=== PATIENT | female | born 1965 | race Caucasian/White ===

== ENCOUNTER 2024-03-13 07:08 | Outpatient (OUT) | payer MEDICARE, SELFPAY ==
--- NOTE | 2024-03-13 | PCN_ITS ---
CARDIAC STRESS TEST Requesting Physician: Karlie Eller CNP Procedure Date: 03/13/2024 TREADMILL EKG STRESS TEST INDICATIONS FOR THE TEST: Chest pain, palpitations and shortness of breath. The procedure was explained to the patient including risks, benefits and she was agreeable to proceed. Resting EKG showed normal sinus rhythm, heart rate 63 beats per minute, normal EKG. Patient?s resting heart rate 63 beats per minute, resting blood pressure 142/80 mm/Hg. The patient was exercised according to standard [place] protocol, and she was able to reach stage 3, exercising for 8 minutes and 41 seconds, achieving max heart of 136 beats per minute, which represents 84% of age predicted maximum heart rate and peak blood pressure of 170/80 mm/Hg. Procedure was terminated secondary to fatigue, shortness of breath and feeling dizzy, which resolved within 2 minutes of recovery. The patient was monitored for about 10 minutes into recovery phase. The patient did not have any chest, neck, jaw or arm discomfort. EKG during exercise and at peak exercise did not show significant T or ST changes. During recovery, mild, less than [address] depression noted in the inferior leads and resolved totally 4 minutes into recovery. CONCLUSIONS: 1. Maximal stress test achieving 84% of age predicted maximal heart rate. 2. Good exercise tolerance with appropriate heart rate and blood pressure to exercise. 3. This stress test is negative for exercise induced ischemic symptoms, EKG changes or arrhythmias. 4. Castillo score is 8, consistent with low risk. MTDD
--- NOTE | 2024-03-13 09:30 | PC.NURSE ---
Nursing Note Cardiac Stress Test Reviewed: Medication, allergies and patient history reviewed. Stress Test: [ x] Patient tolerated stress test well. [ ] Patient unable to tolerate walking on treadmill. Switched to Lexiscan stress test. [ x] No chest pain noted per patient [ ] Chest pain that resolved prior to leaving stress lab. [ ] No dyspnea noted. [x ] Dyspnea that resolved prior to leaving stress lab. [ x] Patient left stress lab asymptomatic and hemodynamically stable. [ ] Patient taken to the Emergency Room due to non-resolving symptoms following stress test. [ x] Patient achieved target heart rate. [ ] Patient unable to achieve target heart rate. [ ] Aminophylline administered as reversal agent to Lexiscan (Regadenoson). [ ] Nitro administered. Nursing Comments:Pt had regular treadmill stress test done. Pt achieved target HR. Pt has hx of PLAZA and was dizzy and felt weak immediately following the walking portion. Pt was able to rest on bed and within 4-5 minutes of rest felt back to pre testing state. Pt stated at end of test that she felt back to normal and was no longer dizzy or SOB and pt had no chest pain throughout testing.
== END 2024-03-13 07:09 | disposition home or self-care (01) ==
LOC: CARD 07:11
PROVIDERS: PCP Family Medicine
DX: R07.89 Other chest pain (principal); R94.31 Abnormal electrocardiogram [ECG] [EKG]; R00.2 Palpitations
CPT/HCPCS: 93017

== ENCOUNTER 2024-04-13 13:49 | Outpatient (OUT) | payer MEDICARE, SELFPAY ==
--- NOTE | 2024-04-13 14:00 | CA_ITS ---
Patient Name: IRIS THOMASON MR#: [id number] : 1965 Exam Date: 04/13/2024 Ordering Doctor: Non-Staff Physician ECHOCARDIOGRAM REPORT PROCEDURE: CA ECHO DOPPLER COMPLETE INDICATIONS: chest pain, palpitations, hypertension COMPARISON: None. DESCRIPTION: COMPLETE ECHOCARDIOGRAM Real-time transthoracic echocardiography with 2D, M-mode, spectral and color flow Doppler performed. QUALITY: Technical quality was good. LEFT VENTRICLE: Normal chamber size. Borderline left ventricular hypertrophy. LV EF: Normal left ventricular ejection fraction, 60%. No regional wall motion abnormalities. DIASTOLIC: Indeterminate diastolic dysfunction. ATRIAL SEPTUM: Visually appears intact. LEFT ATRIUM: Normal chamber size. RIGHT ATRIUM: Normal chamber size. RIGHT VENTRICLE: Normal chamber size. Normal right ventricular systolic function. TRICUSPID VALVE: Normal mobility and thickness. No stenosis with trivial regurgitation. Doppler studies reveal mildly (35-45) elevated right sided pressures.RVSP 45 mmHg MITRAL VALVE: Normal mobility and thickness. No evidence of mitral valve stenosis. There is no mitral annular calcification. Trivial mitral regurgitation. AORTIC VALVE: Normal trileaflet appearance. No visible sclerosis. Normal leaflet mobility. No evidence of aortic valve stenosis. No aortic regurgitation. AORTIC ROOT: Normal diameter and appearance. Ascending aorta is normal in size. PULMONIC VALVE: Normal thickness and mobility. No stenosis. No regurgitation. PERICARDIUM: No evidence of pericardial effusion. IVC: Normal size. Collapes with inspirations. PLEURA: CONCLUSION: Normal left ventricle chamber size. Borderline left ventricular hypertrophy. Normal left ventricular ejection fraction, 60%. No regional wall motion abnormalities. Indeterminate diastolic dysfunction. Mildly elevated right sided pressures. RVSP 45 mmHg No significant valvular abnormalities Adult Echocardiography Procedure Report Left Ventricle LVEDD (3.7 - 5.6 cm): 4.38 cm LVESD (2.2 - 4.0 cm): 3.22 cm LVIVS thickness (0.6 - 1.2 cm): 1.12 cm LVPW thickness (0.5 - 1.0 cm): 0.98 cm e': 0.08 m/s E - e': 13.01 LVOT Max Gradient: 2.30 mm[Hg] LVOT Area (cm2): 0.76 m/s Peak Velocity (LVOT): 0.76 m/s Mean Velocity (LVOT): 0.47 m/s LVOT Diameter 1.85 cm Left Ventricular Ejection Fraction: Left Atrium LA Volume Index (2D A2C): 29.93 ml/m2 Left Atrium Systolic Dimension: 3.49 cm Mitral Valve MV E to A Ratio: 1.27 MV Max Gradient: MV Mean Gradient: Mitral Valve A-Wave Peak Velocity: 0.79 m/s Mitral Valve E-Wave Peak Velocity: 1.00 m/s Cardiovascular Orifice Area: Right Ventricle RV Internal Diastolic Dimension: Aorta AO Root Diam: 2.64 cm Ascending Ao Diam: 2.51 cm Aortic Valve AoV Area (Peak Alfredo): 1.38 cm2, 1.38 cm2 AoV Area (VTI): 1.46 cm2, 1.46 cm2 Deceleration Pratt: Pressure Half-Time: Peak Velocity(Antegrade Flow): 1.48 m/s Peak Gradient(Antegrade Flow): 8.71 mm[Hg] Mean Velocity(Antegrade Flow): 0.93 m/s Mean Gradient(Antegrade Flow): 4.05 mm[Hg] Velocity Time Integral: 32.61 cm Tricuspid Valve Peak Velocity (Regurgitant Flow): 3.24 m/s, 3.07 m/s Peak Velocity: Pulmonic Valve Mean Gradient: 1.99 mm[Hg] Mean Velocity: 0.66 m/s Peak Velocity: 0.98 m/s, 0.94 m/s Peak Gradient: 3.86 mm[Hg], 3.51 mm[Hg] Right Atrium Right Atrium Systolic Pressure: 55.03 ml, 55.03 ml Dictated by: Ralf Shipman MD on 04/13/2024 at 18:01 Approved by: Ralf Shipman MD on 04/13/2024 at 18:13
== END 2024-04-13 13:50 | disposition home or self-care (01) ==
LOC: CARD 13:50
PROVIDERS: PCP Family Medicine
DX: R07.89 Other chest pain (principal); R00.2 Palpitations
CPT/HCPCS: 93306

== ENCOUNTER 2024-05-15 15:30 | Outpatient (OUT) | payer MEDICARE, SELFPAY | END 2024-05-15 15:31 | disposition home or self-care (01) | LOC: SLEEP 05-16 13:36 | PROVIDERS: PCP Physician Assistant Medical; Visit Provider Physician Assistant Medical | DX: G47.33 Obstructive sleep apnea (adult) (pediatric) (principal) | CPT/HCPCS: 95806 ==

== ENCOUNTER 2024-05-30 12:56 | Outpatient (OUT) | payer MEDICARE, SELFPAY ==
[2024-05-30 13:06] LABS: Hemoglobin 14.8 g/dL (12.0-16.0)
--- NOTE | 2024-05-30 13:45 | RT_ITS ---
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
== END 2024-05-30 12:57 | disposition home or self-care (01) ==
LOC: CARD 12:56
PROVIDERS: PCP Physician Assistant Medical; Visit Provider Physician Assistant Medical
DX: R06.02 Shortness of breath (principal); G47.30 Sleep apnea, unspecified; R06.83 Snoring; I27.20 Pulmonary hypertension, unspecified
CPT/HCPCS: 36415; 85018; 94729

== ENCOUNTER 2024-06-29 12:52 | Outpatient (OUT) | payer MEDICARE, SELFPAY ==
--- NOTE | 2024-06-29 13:00 | RT_ITS ---
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 Findings were considered accurate and reproducible, with exception of DLCO which did not meet ATS standards. No bronchodilator was administered due to normal spirometric values. Spirometry: -FEV1/FVC: Normal @ 80% -FEV1: Normal @ 90% -FVC: Normal @ 87% Lung volumes by plethysmography: -RV: Normal @ 99% -TLC: Normal @ 95% Diffusion capacity: -DLCO: Mild reduction @ 67% when corrected for Hb 14.8g/dL Flow-volume loop: -Normal shape Impressions: -Normal spirometry and lung volumes, with an isolated mild diffusion impairment. This pattern can be seen in, but not restricted to, cardiopulmonary vascular disorders, early interstitial lung disease, and early emphysema. A previous DLCO was done 05/30/2024 which was not grossly changed from 70%. Clinical correlation required. Electronically Signed On 07-03-2024 11:44:37 EST by Mickey Torres
== END 2024-06-29 12:53 | disposition home or self-care (01) ==
LOC: CARD 12:52
PROVIDERS: PCP Physician Assistant Medical; Visit Provider Physician Assistant Medical
DX: R06.09 Other forms of dyspnea (principal)
CPT/HCPCS: 94010; 94726; 94729

== ENCOUNTER 2024-07-06 11:31 | Emergency (ER) | payer MEDICARE, SELFPAY ==
[2024-07-06 11:38] VITALS: BP 157/104; PULSE 80; O2SAT 95; BMI 31.6
--- OUTSIDE RECORDS SUMMARY | 2024-07-06 11:50 | XMS_ITS | CCD ---
Author Organization [facility] Care Team Providers Care Barber Instructor Name Role Phone GAUTAM DILL Unavailable GAUTAM DILL Unavailable Unavailable Gautam Dill Unavailable Aniyah, DO Florez Primary Care Provider [phone] DO Gautam Dill Attending Provider [phone] Aniyah, DO Florez Primary Care Provider [phone] Aniyah, DO Florez Attending Provider [phone] Self, Referral Attending Provider Unavailable Aniyah, DO Florez Primary Care Provider [phone] Aniyah, DO Florez Attending Provider BELÉN, DR YUNIEL Ying Admitting Unavailable BEÉLN, DR YUNIEL Ying Attending Unavailable BELÉN, DR YUNIEL Ying Consulting Unavailable FIORELLA MA Admitting Unavailable FIORELLA MA Attending Unavailable ANIYAH, DR FLOREZ Primary Care Unavailable [facility] DR FAROOQ Field Consulting Unavailable FIORELLA MA Consulting Unavailable ANIYAH, DR FLOREZ Admitting Unavailable ANIYAH, DR FLOREZ Attending Unavailable ANIYAH, DR FLOREZ Primary Care Unavailable Aniyah, DO Florez Primary Care Provider DO Gautam Dill Attending Provider [phone] Gautam Dill DO Primary Care Provider Gautam Dill DO Primary Care Provider DO Gautam Dill Primary Care Provider [phone] DO Gautam Dill Attending Provider Gautam Dill DO Primary Care Provider Thao MD, Penola P Unavailable [phone] Kuns, DO Gautam Primary Care Provider Kuns, DO Gautam Attending Provider Kuns DO, Gautam P Primary Care Provider [phone] Kuns, DO Gautam Referring Provider [phone] Kuns, DO Gautam Primary Care Provider [phone] Kuns, DO Gautam Attending Provider Ly, DO Tina L Attending Provider Gautam Dlil MD Primary Care Provider Kuncee, Gautam Admitting Unavailable Kuns, Gautam Attending Unavailable Kuns, Gautam Admitting Unavailable Kuns, Gautam Primary Care Unavailable Kuns, Gautam Attending Unavailable Kuns, Gautam Admitting Unavailable Kuns, Gautam Primary Care Unavailable Kuns, Gautam Attending Unavailable Kuns, Gautam Referring Unavailable Kuns, Gautam Admitting Unavailable Kuns, Gautam Primary Care Unavailable Kuns, Gautam Attending Unavailable Kuns, Gautam Primary Care Unavailable Ly, Tina L Admitting Unavailable Ly, Tina L Attending Unavailable RINKEIKO RIVER Attending Unavailable THAO, PENOLA P Referring Unavailable THAO, PENOLA P Attending Unavailable THAO, PENOLA P Referring Unavailable VISCI, DELORES A Attending Unavailable VISCI, DELORES A Attending Unavailable VISCI, DELORES A Referring Unavailable VISCI, DELORES A Attending Unavailable RINALETA, KEIKO E Attending Unavailable VISCI, DELORES A Referring Unavailable RINKES, KEIKO E Referring Unavailable YEARTY, IRIS Attending Unavailable KARABIN, PIETRO Referring Unavailable KARABIN, PIETRO Referring Unavailable KARABIAna, PIETRO Attending Unavailable KUNS, GAUTAM P Primary Care Unavailable DEL MATTHEW SPANGLER P Referring Unavai gurwinderle LAINEY LINDSEY Attending Unavailable KUNS, GAUTAM P Primary Care Unavailable HEATHER BLANTON Attending Unavailable Guido DURHAM, Ziomar Unavailable Allergies Allergy Classification Reported Allergen(s) Allergy Type Date of Onset Reaction(s) Facility Adhesive Tape (1 source) Adhesive Tape Substance Allergy 014 Other: See Comments [facility] Cephalosporins (antibiotic) (1 source) Cephalosporins (Antibiotic) Drug Allergy Unknown [facility] Contrast Media (1 source) Contrast media Substance Allergy Other: See Comments [facility] Macrolides (antibiotic) (1 source) Azithromycin Drug Allergy GI Upset [facility] Nitroimidazoles (antibiotic) (1 source) metroNIDAZOLE Drug Allergy 015 Diarrhea [facility] Work Phone: Opioid Agonists (1 source) Morphine Drug Allergy Other: See Comments [facility] Penicillins (antibiotic) (1 source) Penicillins Drug Allergy GI Upset [facility] (16 sources) Amoxicillin / Clavulanate Drug Allergy diarrhea [facility] Other (20 sources) Budesonide / formoterol Drug Allergy 024 Other: See Comments [facility] (20 sources) celecoxib Drug Allergy Unknown [facility] Other (20 sources) Cephalexin Drug Allergy Unknown [facility] Other (20 sources) cloNIDine; Translations: [CLONIDINE] Drug Allergy 023 Other: See Comments [facility] (20 sources) Contrast media Propensity to adverse reactions Unknown [facility] Other (20 sources) levoFLOXacin Drug Allergy severe diarrhea [facility] Other (20 sources) LORazepam; Translations: [LORAZEPAM] Drug Allergy 023 Unknown [facility] (20 sources) methylPREDNISolone Drug Allergy Unknown [facility] Other (20 sources) metroNIDAZOLE; Translations: [METRONIDAZOLE] Drug Allergy 015 Diarrhea [facility] (20 sources) Morphine; Translations: [MORPHINE] Drug Allergy Other: See Comments [facility] (20 sources) NITROFURANTOIN, MACROCRYSTALS / Nitrofurantoin, Monohydrate Drug Allergy bradycardia [facility] Other (20 sources) oxybutynin Drug Allergy Unknown [facility] Other (20 sources) rofecoxib Drug Allergy Unknown [facility] Other (20 sources) Sulfamethoxazole / Trimethoprim Drug Allergy 023 Itching [facility] Other (20 sources) Valproate Drug Allergy Unknown [facility] Other (20 sources) surgical tape/electrode pads Propensity to adverse reactions Unknown [facility] Other (14 sources) Sulfonamides (Antibiotic); Translations: [Sulfa (Sulfonamide Antibiotics)] Allergy to substance 017 Itching, Other: See Comments [facility] (20 sources) Iodinated [employer]; Translations: [Iodinated [facility] [facility]] Allergy to substance 014 Unknown Reaction [facility] (6 sources) Amoxicillin / Clavulanate Drug Allergy diarrhea [facility] Other (7 sources) Cephalexin Drug Allergy 023 unknown [facility] Repository (1 source) Penicillin Drug Allergy [facility] Repository (13 sources) Adhesive Tape; Translations: [ADHESIVE TAPE (ROSINS)] Allergy to substance 014 Other: See Comments [facility] (20 sources) Azithromycin; Translations: [AZITHROMYCIN] Drug Allergy 015 GI Upset [facility] (14 sources) Cephalosporins (Antibiotic); Translations: [CEPHALOSPORINS] Drug Allergy 004 Unknown [facility] (13 sources) Contrast media; Translations: [CONTRAST DYE] Drug Allergy 014 Other: See Comments [facility] (13 sources) metroNIDAZOLE; Translations: [METRONIDAZOLE HCL] Drug Allergy 015 Diarrhea [facility] Work Phone: (13 sources) Penicillins; Translations: [PENICILLINS] Drug Intolerance 015 GI Upset [facility] (7 sources) Adhesive Tape; Translations: [adhesive tape] Allergy to substance 023 unknown [facility] (7 sources) Amoxicillin; Translations: [amoxicillin] Drug Allergy 023 diarrhea [facility] (8 sources) Budesonide; Translations: [budesonide] Drug Allergy blood pressure [facility] (19 sources) celecoxib; Translations: [celecoxib] Drug Allergy Other: See Comments [facility] (19 sources) Clavulanate; Translations: [clavulanic acid] Drug Allergy Diarrhea [facility] (18 sources) formoterol; Translations: [formoterol] Drug Allergy blood pressure [facility] (19 sources) levoFLOXacin; Translations: [levofloxacin] Drug Allergy Diarrhea, Other: See Comments [facility] (18 sources) methylPREDNISolone; Translations: [methylprednisolone] Drug Allergy GI Upset, Other: See Comments [facility] (9 sources) Nitrofurantoin; Translations: [nitrofurantoin] Drug Allergy Other: See [facility] (19 sources) oxybutynin; Translations: [oxybutynin] Drug Allergy Other: See Comments [facility] (17 sources) rofecoxib; Translations: [rofecoxib] Drug Allergy unknown [facility] (17 sources) Sulfamethoxazole; Translations: [sulfamethoxazole] Drug Allergy itching [facility] (19 sources) Trimethoprim; Translations: [trimethoprim] Drug Allergy Itching [facility] (7 sources) Valproate; Translations: [divalproex sodium] Drug Allergy unknown [facility] (10 sources) Cephalexin Drug Allergy [facility] (10 sources) Cephalosporins (Antibiotic) Drug Allergy [facility] (10 sources) Lorazepam Allergy to substance [facility] (10 sources) Penicillins Drug Intolerance [facility] (10 sources) Valproate Drug Allergy [facility] (11 sources) Amoxicillin-Pot Clavulanate; Translations: [AMOXICILLIN-POT CLAVULANATE] Drug Allergy Diarrhea [facility] (10 sources) Budesonide-Formotero l Fumarate Drug Allergy [facility] (10 sources) Wound Dressing Adhesive Drug Allergy [facility] (1 source) Cephalexin Drug Allergy [facility] Repository (1 source) cloNIDine Drug Allergy [facility] Repository (1 source) LORazepam Drug Allergy [facility] Repository (1 source) metroNIDAZOLE Drug Allergy [facility] Repository (1 source) Morphine Drug Allergy [facility] Repository (1 source) Budesonide / formoterol; Translations: [BUDESONIDE-FORMOTER OL] Drug Allergy [facility] Repository (1 source) Sulfamethoxazole / Trimethoprim; Translations: [SULFAMETHOXAZOLE-TR IMETHOPRIM] Drug Allergy [facility] Repository (1 source) DIVALPROEX; Translations: [DIVALPROEX] Propensity to adverse reactions to drug (disorder) [facility] Repository (1 source) Latex Drug Allergy Other: See Comments [facility] Medications Current Medications Medication Drug Class(es) Dates Sig (Normalized) Sig (Original) Acetaminophen (1 source) acetaminophen (TYLENOL 8 HOUR ORAL) Take by mouth as needed. Active ALPRAZolam 0.25 mg oral tablet (12 sources) Benzodiazepine Start: 01-15-2019 take 1 tablet by mouth twice daily as needed Xanax 0.25 MG 1 tablet Orally Twice a day prn for 12 days Jan, Active azithromycin 500 mg oral tablet (20 sources) Macrolide Antimicrobial Start: 04-10-2024 take 1 tablet by mouth once daily azithromycin (ZITHROMAX) 500 mg tablet Take 500 mg by mouth once daily. 04/10/2024 Active Start: 10-19-2023 End: 02-08-2024 take 1 tablet by mouth every hour Azithromycin (Zithromax) 500 mg tablet Discontinued 500 MG PO .COMPLEX 1 October 19, 2023 12:00am February 08, 2024 11:25am 500 mg orally take 1 tablet one hour prior to dental procedure; Start: 08-08-2023 End: 09-27-2023 take 1 tablet by mouth once daily Azithromycin (Zithromax) 500 mg tablet Discontinued 500 MG PO Daily August 08, 2023 12:00am September 27, 2023 2:29pm one tablet one hour prior to procedure Start: 07-20-2023 End: 10-19-2023 Azithromycin (Zithromax Z-Pa k) 250 mg tablet Discontinued 0 PO .COMPLEX 6 September 26, 2023 2:47pm October 19, 2023 8:38am For 250 mg dose pack: take 500 mg today (day 1), then 250 mg for 4 days (days 2-5) PO Start: 08-04-2022 Zithromax Z-Pa k 250 MG as directed Orally as directed Jul, Active Start: 05-18-2022 Zithromax Z-Pa k 250 MG as directed Orally as directed May, Active Start: 03-02-2022 Zithromax 500 MG 1 tablet Orally one hour before procedure Feb, Active calcium carbonate 1500 mg / cholecalciferol 800 unt oral tablet (10 sources) Vitamin D Calcium Carb-Cho lecalciferol (Calcium 600/Vitamin D3) 600-20 MG-MCG tablet Take by mouth Active cholecalciferol 0.05 mg oral capsule (9 sources) Vitamin D Start: 09-27-19 take 2 capsules by mouth once daily Cholecalciferol, Vitamin D3, 50 mcg (2,000 unit) cap Take 2 capsules by mouth once daily. 09/27/2023 Active take 2 capsules by m outh every twenty-four hours Vitamin D 50 MCG (2000 UT) 2 capsule Orally Once a day Active Compression stockings, 20-30 mmHg, calf 20-30mmHg (20 sources) Start: 01-15-2019 Start: 01-15-[address] ockings, 20-30mmHg, calf 20-30mmHg externally daily as directed for 3 months Jan, Active doxycycline hyclate 50 mg oral capsule (16 sources) Tetracycline-class Drug Start: 08-25-2021 take 1 capsule by mouth every twelve hours Doxycycline Hyclate 50 MG 1 capsules Orally Twice a day for 5 days Aug, Active Start: 05-11-2021 take 1 tablet by shabana every twelve hours Doxycycline Hyclate 50 MG 1 tablet Orally Twice a day for 10 day(s) May, Active esomeprazole 40 mg delayed release oral capsule (20 sources) Proton Pump Inhibitor Start: 02-08-2024 take 1 capsule by mouth once daily Esomeprazole Magnesium (Nexium) 40 mg capsule,delayed release(DR/EC) Active 40 MG PO Daily February 08, 2024 12:00am Start: 04-15-2017 End: 10-19-2023 take 1 capsule by mouth once daily Esomeprazole Magnesium (Nexium) 20 mg Capsule,Delayed Release(Dr/Ec) Discontinued 20 MG PO Daily April 15, 2017 1:00am October 19, 2023 8:38am End: 08-08-2023 esomeprazole magnesium (NEXI UM ORAL) Take 1 tablet by mouth as needed. 0 08/08/2023 Discontinued esomeprazole mag nesium (NEXIUM ORAL) Take 1 tablet by mouth as needed. 0 Active Comment on above: Take 1 tablet by [facility] as needed. gabapentin 100 mg oral capsule (20 sources) Anti-epileptic Agent Start: 03-13-2018 take 1 capsule by mouth every twelve hours Gabapentin 100 mg 1 tablet Orally BID for 90 days Mar, Active Start: 12-24-2015 take 1 capsule by [facility] once daily gabapentin (NEURONTIN) 100 mg capsule Take 1 capsule by mouth once daily. 12/24/2015 Active Comment on above: Take 1 capsule by [facility] once daily. Iron (2 sources) take 1 tablet by mouth once rafat y Iron 325 (65 Fe) MG 1 tablet Orally Once a day Active Magnesium (2 sources) magnesium 200 MG tablet Take by mouth Active Magnesium glycinate (1 source) take 240 mg by mouth once daily MAGNESIUM GLYCINATE ORAL Take 240 mg by mouth once daily. High absorption Active Multiple Vitamins-Minerals (multivitamin with minerals) tablet (2 sources) take 1 tablet by mouth once daily Multiple Vitamins-Minerals (multivitamin with minerals) tablet Take 1 tablet by mouth Daily Active mv-min/iron/folic/calcium/ vitK (WOMEN'S MULTIVITAMIN ORAL) (1 source) take 1 tablet by mouth once daily mv-min/iron/folic/calcium /vitK (WOMEN'S MULTIVITAMIN ORAL) Take 1 tablet by mouth once daily. Active nebivolol 5 mg oral tablet (20 sources) Start: 04-15-2017 take 5 mg by mouth once daily Nebivolol Active 5 MG PO Daily April 15, 2017 1:00am take 2.5 mg by mouth once daily nebivolol (BYSTOLIC) 5 mg tablet Indications: Thickened endometrium , Heavy menses Take 2.5 mg by mouth once daily. Active Comment on above: Take 5 mg by mouth o nce daily. predniSONE 10 mg oral tablet (12 sources) Start: 04-22-2021 take 1 tablet by mouth every twenty-four hours predniSONE 10 MG 1 tablet Orally Once a day for 5 day(s) Apr, Active Vitamin D 50 MCG (1999) (11 sources) take 2 capsules by mouth once daily Vitamin D 50 MCG (1999) 2 capsule Orally Once a day Active Completed/Discontinued Medications Medication Drug Class(es) Dates Sig (Normalized) Sig (Original) chlordiazePOXIDE hydrochloride 5 mg / clidinium bromide 2.5 mg oral capsule (5 sources) Anticholinergic, Benzodiazepine Start: 10-19-2023 End: 02-08-2024 Chlordiazepoxide- Clidinium (Librax (With Clidinium)) 5-2.5 mg capsule Discontinued 1 CAP PO Twice daily 30 October 19, 2023 12:00am February 08, 2024 11:25am famotidine 20 mg oral tablet (5 sources) Histamine-2 Receptor Antagonist Start: 10-19-2023 End: 02-08-2024 take 1 tablet by mouth once daily before mealtime Famotidine (Pepcid Ac) 20 mg tablet Discontinued 20 MG PO Daily 60 October 19, 2023 12:00am February 08, 2024 11:26am OTC ferrous sulfate 325 mg oral tablet (20 sources) Start: 04-18-2017 End: 10-19-2023 take 1 tablet by mouth once daily Ferrous Sulfate (Iron) 325 mg (65 mg iron) Tablet Discontinued 325 MG PO Daily April 18, 2017 1:00am October 19, 2023 8:39am Start: 12-24-2015 End: 08-08-2023 take 1 tablet by mouth once daily ferrous sulfate 325 mg (65 mg iron) tablet Take 1 tablet by mouth once daily. 0 12/24/2015 08/08/2023 Discontinued Comment on above: Take 1 tablet by shabana once daily. ibuprofen 800 mg oral tablet (20 sources) Nonsteroidal Anti-inflammatory Drug Start: End: 4 take 1 tablet by mouth three times daily at mealtime as needed Ibuprofen Discontinued 800 MG PO Three times daily September 27, 2023 12:00am February 08, 2024 11:26am [employer] tablet with food or milk as needed Orally Three times a day; Note: Source Status: Provider: Aniyah Dennis Start: 04-25-2018 take 1 tablet by shabana th every six hours as needed ibuprofen (MOTRIN) 600 mg tablet Take 1 tablet by mouth every 6 hours as needed for Pain. Take with food. 50 tablet 04/25/2018 Active take 1 tablet by shabana th three times daily at mealtime as needed Ibuprofen 800 MG 1 tablet with food or milk as needed Orally Three times a day for 90 day(s) prn Active Comment on above: Take 1 tablet by shabana th every 6 hours as needed for Pain. Take with food. loperamide hydrochloride 2 mg oral capsule (15 sources) Opioid Agonist Start: 10-19-2023 End: 02-08-2024 take 2 mg by mouth every six hours Loperamide Discontinued 2 MG PO Every 6 hours October 19, 2023 12:00am February 08, 2024 11:25am loperamide (Imod ium A-D) 2 MG tablet Take 2-4 mg by mouth 4 (four) times a day as needed for diarrhea Active mupirocin 0.02 mg/mg topical ointment (5 sources) RNA Synthetase Inhibitor Antibacterial Start: 10-19-2023 End: 02-08-2024 Mupirocin Discontinued 1 APPLIC TOPICAL Twice daily October 19, 2023 12:00am February 08, 2024 11:25am Problems Active Problems Problem Classification Problem Date Documented Da te Episodic/Chronic Anxiety disorders (20 sources) Mixed anxiety and depressive disorder; Translations: [Other specified anxiety disorders] Chronic Cardiac dysrhythmias (18 sources) Postural orthostatic tachycardia syndrome ; Translations: [POTS (postural orthostatic tachycardia syndrome)] Onset: 8 04-17-2018 Chronic Cardiac dysrhythmias (20 sources) Palpitations; Translations: [Bradycardia] Onset: 1 Resolved: 1 Episodic Deficiency and other anemia (20 sources) Microcytic anemia; Translations: [Iron deficiency anemia, unspecified] Episodic Diseases of white blood cells (15 sources) Neutropenia; Translations: [Neutropenia, unspecified] Chronic Disorders of lipid metabolism (20 sources) Hyperlipidemia; Translations: [Hyperlipidemia, unspecified] Onset: 4 Chronic Esophageal disorders (20 sources) Gastroesophageal reflux disease; Translations: [Gastro-esophageal reflux disease without esophagitis] Onset: 4 10-19-2023 Chronic Essential hypertension (20 sources) Hypertensive disorder; Translations: [Essential (primary) hypertension] Onset: 2 Resolved: 2 Chronic Essential hypertension (1 source) Essential hypertension Onset: 8 Genitourinary symptoms and ill-defined conditions (13 sources) Female stress incontinence; Translations: [Stress incontinence (female) (male)] Onset: 5 11-25-2014 Chronic Genitourinary symptoms and ill-defined conditions (20 sources) Increased frequency of urination; Translations: [Frequency of micturition] Onset: 4 Episodic Malaise and fatigue (1 source) Other fatigue Episodic Nonspecific chest pain (5 sources) Chest pain, unspecified; Translations: [Other chest pain] Onset: 8 Episodic Nutritional deficiencies (20 sources) Vitamin D deficiency; Translations: [Vitamin D deficiency, unspecified] Onset: 4 Chronic Open wounds of extremities (10 sources) Laceration of left index finger; Translations: [Laceration without foreign body of left index finger without damage to nail, initial encounter] Episodic Other circulatory disease (3 sources) Postural orthostatic tachycardia syndrome ; Translations: [Postural orthostatic tachycardia syndrome [POTS]] Onset: 4 Episodic Other ear and sense organ disorders (20 sources) Bilateral earache; Translations: [Otalgia, bilateral] Episodic Other gastrointestinal disorders (2 sources) Irritable bowel syndrome characterized by constipation; Translations: [Irritable bowel syndrome with constipation] 02-08-2024 Chronic Other gastrointestinal disorders (2 sources) Irritable bowel syndrome with constipation; Translations: [Irritable bowel syndrome] 02-08-2024 Chronic Other gastrointestinal disorders (14 sources) Difficulty swallowing; Translations: [Dysphagia, unspecified] Episodic Other gastrointestinal disorders (5 sources) Diarrhea; Translations: [Diarrhea, unspecified] 10-19-2023 Episodic Other gastrointestinal disorders (3 sources) Abdominal bloating; Translations: [Abdominal distension (gaseous)] 11-15-2023 Episodic Other gastrointestinal disorders (2 sources) Dysphagia; Translations: [Dysphagia, unspecified] 02-08-2024 Episodic Other gastrointestinal disorders (3 sources) Dysphagia, unspecified; Translations: [Dysphagia, unspecified] Onset: 4 02-08-2024 Episodic Other lower respiratory disease (2 sources) Shortness of breath; Translations: [Shortness of breath] Onset: 4 Episodic Other lower respiratory disease (2 sources) Snoring; Translations: [Snoring] Onset: 4 Episodic Other nervous system disorders (20 sources) Disorder of autonomic nervous system; Translations: [Disorder of the autonomic nervous system, unspecified] Onset: 8 04-17-2018 Chronic Other nervous system disorders (2 sources) Disorder of the autonomic nervous system, unspecified; Translations: [Disorder of the autonomic nervous system, unspecified] Onset: Chronic Other nervous system disorders (20 sources) Tremor; Translations: [Tremor, unspecified] Episodic Other nervous system disorders (10 sources) Numbness of face; Translations: [Anesthesia of skin] Episodic Other nutritional; endocrine; and metabolic disorders (19 sources) H/O: thyroid disorder; Translations: [Personal history of other endocrine, nutritional and metabolic disease] 09-27-2023 Episodic Other nutritional; endocrine; and metabolic disorders (1 source) Abnormal weight gain Episodic Other screening for suspected conditions (not mental disorders or infectious disease) (6 sources) Endometrium thickened; Translations: [Abnormal findings on diagnostic imaging of other specified body structures] Onset: 4 08-08-2023 Chronic Other skin disorders (5 sources) Pyogenic granuloma; Translations: [Pyogenic granuloma] 10-19-2023 Episodic Other skin disorders (3 sources) Pyogenic granuloma; Translations: [Pyogenic granuloma of skin and subcutaneous tissue] 10-19-2023 Episodic Peripheral and visceral atherosclerosis (20 sources) Peripheral vascular disease; Translations: [Peripheral vascular disease, unspecified] Chronic Pulmonary heart disease (9 sources) Pulmonary hypertension; Translations: [Pulmonary hypertension, unspecified] Onset: 4 05-11-2024 Chronic Residual codes; unclassified (2 sources) Sleep apnea, unspecified; Translations: [Sleep apnea, unspecified] Onset: 4 Chronic Residual codes; unclassified (20 sources) Amnesia; Translations: [Other amnesia] Episodic Thyroid disorders (18 sources) Multinodular goiter; Translations: [Nontoxic multinodular goiter] Onset: 6 12-24-2015 Chronic Unclassified (2 sources) Chest pain, unspecified / R07.9(ICD-9) Onset: 8 Unclassified (1 source) Palpitations / R00.2(ICD-9) Onset: 8 Unclassified (1 source) Family hx of ischem heart dis and oth dis of the circ sys / Z82.49(ICD-9) Onset: 8 Unclassified (1 source) Cardiac arrhythmia, unspecified / I49.9(ICD-9) Onset: 8 Urinary tract infections (20 sources) Recurrent urinary tract infection; Translations: [Urinary tract infection, site not specified] Onset: 1 Resolved: 1 Episodic Past or Other Problems Problem Classification Problem Date Documented Da te Episodic/Chronic Abdominal pain (20 sources) Right upper quadrant pain; Translations: [Right upper quadrant pain] Onset: 11-24-2023 10-19-2023 Episodic Benign neoplasm of uterus (20 sources) Uterine leiomyoma; Translations: [Leiomyoma of uterus, unspecified] Onset: 08-01-2017 08-01-2017 Episodic Deficiency and other anemia (3 sources) Iron deficiency anemia, unspecified; Translations: [Iron deficiency anemia, unspecified] Onset: 06-23-2023 Episodic Diabetes mellitus without complication (20 sources) Hyperglycemia; Translations: [Hyperglycemia, unspecified] Onset: 06-23-2023 Episodic Nonmalignant breast conditions (2 sources) Pain of breast; Translations: [Mastodynia] 01-03-2024 Episodic Other connective tissue disease (4 sources) Pain in left lower leg; Translations: [PAIN IN LEFT LOWER LEG] Onset: 11-13-2021 Episodic Other ear and sense organ disorders (1 source) Otalgia, bilateral Onset: 04-22-2021 Resolved: 04-22-2021 Episodic Other ear and sense organ disorders (13 sources) Otalgia, left ear; Translations: [Otalgia, unspecified] Onset: 02-07-2018 02-07-2018 Episodic Other female genital disorders (13 sources) Polyp of corpus uteri; Translations: [Polyp of corpus uteri] Onset: 06-13-2017 02-07-2018 Episodic Other female genital disorders (2 sources) Vaginal dryness; Translations: [Other specified noninflammatory disorders of vagina] 01-12-2024 Episodic Other gastrointestinal disorders (4 sources) Diarrhea, unspecified; Translations: [Diarrhea] Onset: 10-19-2023 10-19-2023 Episodic Other gastrointestinal disorders (1 source) Abdominal distension (gaseous); Translations: [Abdominal distension (gaseous)] Onset: 11-24-2023 Episodic Other non-traumatic joint disorders (1 source) Pain in right knee Onset: 04-22-2021 Resolved: 04-22-2021 Episodic Other nutritional; endocrine; and metabolic disorders (2 sources) Personal history of other endocrine, nutritional and metabolic disease; Translations: [Personal history of other endocrine, nutritional and metabolic disease] Onset: 06-23-2023 Episodic Other screening for suspected conditions (not mental disorders or infectious disease) (19 sources) Atypical glandular cells on cervical Papanicolaou smear; Translations: [Unspecified abnormal cytological findings in specimens from cervix uteri] Onset: 05-30-2018 05-30-2018 Episodic Other upper respiratory disease (1 source) Nasal congestion Onset: 05-20-2021 Resolved: 05-20-2021 Episodic Unclassified (1 source) Vaccine counseling Z71.85 Onset: 04-22-2021 Resolved: 04-22-2021 Unclassified (14 sources) Varicose veins of lower extremity (4 sources) Varicose veins of bilateral lower extremities with pain; Translations: [VARICOSE VNS ROJELIO LOW EXTREM W/PAIN] Onset: 11-05-2021 Episodic Results Test Name Value Interpretation Reference Range Facility Documentationon 06-19-2024 Documentation [id number] Iris Thomason 1965 F Date Provider Department Center 06/19/2024 [id number]-[facility]OFCPIRIS [facility] [place] Heart[facility]AS No family history on file Normal [facility] 36on 06-15-2024 36 Left msg for pt t o return call to discuss results of PFT. Not sure if she is referring to PFT or sleep study results but we only have sleep study. Where was PFT done? Called [facility] and they will fax PFT results Scanned into dodson Normal [facility] Nam 06-15-2024 CNPN Telephone (CARD CHF DINH) IRIS THOMASON ([id number]) 1965 F Date Time Provider Department 06/15/24 LORENZO LORA CARD [facility] DINH During your visit today, we recorded the following information about you: Rohini Day 06/15/2024 3:59 PM Signed Outside Echo report scanned into iCopyright for review. Allergies As of Date: 06/15/2024 Noted Allergy Reaction CONTRAST DYE 01/21/2014 14 - Other: See Comments Comments: chest pain , increased HR, increased BP AZITHROMYCIN 10/07/2014 8 - GI Upset Comments: Severe diarrhea CEPHALOSPORINS 12/25/2003 16 - Unknown FLAGYL (METRONIDAZOLE HCL) 10/21/2014 6 - Diarrhea Comments: Had diarrhea and dizziness and funny feeling in head and arms MORPHINE 03/11/2014 14 - Other: See Comments Comments: CHEST PAIN AND INCREASED BLOOD PRESSURE PENICILLINS 10/07/2014 8 - GI Upset Comments: Severe diarrhea TAPE (ADHESIVE TAPE (ROSINS)) 01/21/2014 14 - Other: See Comments Comments: blisters Date Reviewed: 11/16/2023 Reviewed by: Yi Jama MA - Fully Assessed Reason for Visit: Results [95] Prescriptions as of 06/21/2024 - ibuprofen (MOTRIN) 600 mg tablet Take 1 tablet by mouth every 6 hours as needed for Pain. Take with food. - gabapentin (NEURONTIN) 100 mg capsule Take 1 capsule by mouth once daily. - nebivolol (BYSTOLIC) 5 mg tablet Take 5 mg by mouth once daily. Problem List As Of Date 06/15/2024 Noted Resolved Female stress incontinence [N39.3] 11/25/2014 Multiple thyroid nodules [E04.2] 12/24/2015 Endometrial polyp [N84.0] 06/13/2017 Intramural and submucous leiomyoma of uterus [D*08/01/2017 Submucous leiomyoma of uterus [D25.0] 08/01/2017 Left ear pain [H92.02] 02/07/2018 Autonomic dysfunction [G90.9] 04/17/2018 POTS (postural orthostatic tachycardia syndrome*04/17/2018 Atypical glandular cells of undetermined signif*05/30/2018 Encounter Status:Closed by LORENZO LORA on 06/21/24 [facility] 36on 06-14-2024 36 Pt calling again requesting to know what you thought about her PFT results. Left same message 3 weeks ago [facility] Telephoneon 06-14-2024 Telephone [id number] Iris Thomason 1965 F Date Provider Department Center 06/14/2024 2486-EDINSON BOWMAN HVC CARD [place] HeartVAS No family history on file [facility] Documentationon 05-26-2024 Documentation [id number] Iris Thomason 1965 F Date Provider Department Center 05/26/2024 [id number]-YQUGWLIRIS SEQUEIRA HVC CARD [place] HeartVAS No family history on file [facility] 36on 05-22-2024 36 Patient called to notify us that her sleep study was completed last week at [place]. I contacted the facility to request the results, will send them over to us now for the provider to review. [facility] 2904-23-2024 29 Addended by: SYLVIA BARLOW on: 05/07/2024 03:25 PM Modules accepted: Orders [facility] 29 Addended by: IRIS SEQUEIRA on: 05/08/2024 10:50 AM Modules accepted: Orders [facility] 37on 04-23-2024 37 Decrease Nebivolol t o 1/2 of 5mg and see if less fatigue, and that your palpitations don't feel worse. When you have dental work, ask for the numbing agent with out adrenalin or epinephrine Do start to exercise on treadmill 5 mins twice per day and gradually increase to goal of 20 mins per day. More information after labs. MyChart gives you access to your chart and appointments. It is a great way to communicate with your provider, look at test results, renew prescriptions, schedule or cancel appointments and more. [facility] encourages you to sign up and get started with [employer]. --Please ask any of our staff for assistance --Go to [email or web address] and click sign up now. --on your cell phone download the rafael: [place] second hand information company for [facility] --Call [facility] IT help desk at [phone]. Kind regards, Iris Sequeira, [facility] Cardiovascular Medicine Contact me via Mid Level Business Analyst Sylvia Barrera [phone] [facility] B-TYPE NATRIURETIC PEPTIDEon 04-23-2024 Natriuretic peptide B (Bld) [Mass/Vol] 95 pg/mL Normal 0-[address] [facility] Comment on above: Performed By: #### L [id number] #### [facility] (BEAKER) [address] [place] [address] CBCon 04-23-2024 Erythrocyte distribution width (RBC) [Ratio] 13.2 % Normal 11.5-15.[address] [facility] Comment on above: Performed By: #### L [id number] #### [facility] (BEAKER) [address] [place] [address] ERYTHROCYTE MEAN CORPUSCULAR HEMOGLOBIN CONCENTRATION (G/DL) BY AUTOMATED 32.9 g/dL Normal 32.0-35.[address] [facility] Comment on above: Performed By: #### L [id number] #### [facility] (BEAKER) [address] [place] [address] Hematocrit (Bld) [Volume fraction] 46.5 % Normal 36.0-48.[address] [facility] Comment on above: Performed By: #### L [id number] #### [facility] (BEAKER) [address] [place] [address] Hemoglobin (Bld) [Mass/Vol] 15.3 g/dL High 12.0-15.[address] [facility] Comment on above: Performed By: #### L [id number] #### [facility] ([facility]) [address] [place] [address] MCH (RBC) [Entitic mass] 30.1 pg Normal 27.0-33.[address] [facility] Comment on above: Performed By: #### L [id number] #### [facility] ([facility]) [address] [place] [address] MCV (RBC) [Entitic vol] 91.4 fL Normal 82.0-98.0 [facility] Comment on above: Performed By: #### L [id number] #### [facility] ([facility]) [address] [place] [address] PLATELETS (10*3/UL) IN BLOOD AUTOMATED COUNT 198 10*3/uL Normal 150-[address] [facility] Comment on above: Performed By: #### L [id number] #### [facility] ([facility]) [address] [place] [address] RBC (Bld) [#/Vol] 5.09 10*6/uL High 3.80-5.00 [facility] Comment on above: Performed By: #### L [id number] #### [facility] ([facility]) [address] [place] [address] WBC (Bld) [#/Vol] 4.51 10*3/uL Normal 4.00-10.60 [facility] Comment on above: Performed By: #### L [id number] #### [facility] [address] [place] [address] COMPREHENSIVE METABOLIC PANE Vinny 04-23-2024 Albumin [Mass/Vol] 4.5 g/dL Normal 3.5-5.[address] [facility] Comment on above: Performed By: #### L [id number] ####[facility] ([facility] [place] [address] ALP [Catalytic activity/Vol] 91 U/L Normal 34-[address] [facility] Comment on above: Performed By: #### L [id number] ####[facility] ([facility])[address] [place] [address] ALT [Catalytic activity/Vol] 17 U/L Normal 7-[address] [facility] Comment on above: Performed By: #### L [id number] ####[facility] ([facility])[address] [place] [address] Anion gap [Moles/Vol] 10 mmol/L Normal 7-20 [facility] Comment on above: Performed By: #### L [id number] ####[facility] ([facility])[address] [place] [address] AST [Catalytic activity/Vol] 18 U/L Normal 13-[address] [facility] Comment on above: Performed By: #### L [id number] ####[facility] ([facility])[address] [place] [address] Bilirubin [Mass/Vol] 0.5 mg/dL Normal 0.3-1.0 [facility] Comment on above: Performed By: #### L [id number] ####[facility] ([facility])[address] [place] [address] Calcium [Mass/Vol] 9.4 mg/dL Normal 8.6-10.[address] [facility] Comment on above: Performed By: #### L [id number] ####[facility] [place] [address] Chloride [Moles/Vol] 108 mmol/L High 98-107 [facility] Comment on above: Performed By: #### L [id number] ####[facility] ([facility] [place] [address] CO2 [Moles/Vol] 27 mmol/L Normal 21-31 [facility] Comment on above: Performed By: #### L [id number] ####[facility] [place] [address] Creatinine [Mass/Vol] 0.89 mg/dL Normal 0.60-1.20 [facility] Comment on above: Performed By: #### L [id number] ####[facility] ([facility])[address] [place] [address] GLOMERULAR FILTRATION RATE ML/MIN/1.73 SQ M.PREDICTED 74.6 mL/min/1.73m*2 Normal >60.0 [facility] Comment on above: Result Comment: The [facility]???s estimated glomerular filtration rate (eGFR) will no longer include consideration of race in its calculation. The National Kidney Foundation???s eGFR Task Force developed new recommendations for the estimation of the glomerular filtration rate in the [place] They recommend immediate implementation of the new equation refit without the race variable in all laboratories because the calculation does not include race. In addition to not including race in the calculation and reporting, it included diversity in its development, and has acceptable performance characteristics and potential consequences that do not disproportionately affect any one group of individuals. Performed By: #### L [id number] ####[facility] ([facility])[address] [place] [address] Glucose [Mass/Vol] 97 mg/dL Normal 70-[address] [facility] Comment on above: Performed By: #### L [id number] ####[facility] ([facility])[address] [place] [address] Potassium [Moles/Vol] 4.2 mmol/L Normal 3.5-5.1 [facility] Comment on above: Performed By: #### L [id number] ####[facility] ([facility])[address] [place] [address] Protein [Mass/Vol] 6.9 g/dL Normal 6.0-8.[address] [facility] Comment on above: Performed By: #### L [id number] ####[facility] ([facility])[address] [place] [address] Sodium [Moles/Vol] 141 mmol/L Normal 136-[address] [facility] Comment on above: Performed By: #### L [id number] ####[facility] [place] [address] Urea nitrogen [Mass/Vol] 13 mg/dL Normal 7-[address] [facility] Comment on above: Performed By: #### L [id number] ####[facility] ([facility] [place] [address] UREA NITROGEN/CREATININE (MASS RATIO) IN SER/PLAS 14.[address] [facility] Comment on above: Performed By: #### L [id number] ####[facility] ([facility])[address] [place] [address] LIPID PANELon 04-23-2024 CHOL/HDL 2.7 mg/dL Normal [facility] Comment on above: Performed By: #### L [id number] #### [facility] ([facility]) [address] [place] [address] Cholesterol [Mass/Vol] 217 mg/dL High 120-200 [facility] Comment on above: Performed By: #### L [id number] #### [facility] ([facility]) [address] [place] [address] Magnesium [Mass/Vol] 67 mg/dL Normal 40-149 [facility] Comment on above: Result Comment: TRIG LYCERIDE REFERENCE RANGE: 20 YEARS AND OLDER CARDIOVASCULAR RISK LESS THAN 150 mg/dL LOW RISK 150 TO 199 mg/dL BORDERLINE RISK 200 mg/dL AND GREATER HIGH RISK Performed By: #### L [id number] #### [facility] ([facility]) [address] [place] [address] Magnesium [Mass/Vol] 124 mg/dL Normal 0-160 [facility] Comment on above: Performed By: #### L [id number] #### [facility] [address] [place] [address] Magnesium [Mass/Vol] 80 mg/dL Normal 23-92 [facility] Comment on above: Performed By: #### L [id number] #### [facility] ([facility] [address] [place] [address] NON HDL CHOL. (LDL+VLDL) [address] [facility] Comment on above: Performed By: #### L [id number] #### [facility] [address] [place] [address] TOTAL VLDL-C 13 mg/dL Normal 0-40 [facility] Comment on above: Performed By: #### L [id number] #### [facility] ([facility]) [address] [place] [address] Labon 04-23-2024 Lab [id number] Reyna Thomasoncalera 1965 F Date Provider Department Center 04/23/2024 2245-[facility] OPD LAB RESOURCE [facility] OPD [facility] No family history on file Normal [facility] MAGNESIUMon 04-23-2024 Magnesium [Mass/Vol] 2.1 mg/dL Normal 1.9-2.7 [facility] Comment on above: Performed By: #### L [id number] ####[facility] ([facility])[address] [place] [address] Office Visiton 04-23-2024 Follow-up visit [id number] Reyna Thomasoncalera 1965 Provider Department [place] 04/23/2024 94905-VKIOMK, IRIS [facility] [place] Heart[facility] No family history on file Level of Service:84364 [place] OFFICE/OUTPATIENT ESTABLISHED MOD MDM 30 MIN Normal [facility] TSH3 REFLEX TO FT4on 024 THYROTROPIN (MIU/L) IN SER/PLAS BY DETECTION LIMIT <= 0.05 MIU/L 1.63 mIU/L Normal 0.34-5.60 [facility] Comment on above: Performed By: #### L [id number] ####[facility] ([facility])[address] [place] [address] 36on 04-19-2024 36 [place] scanned the echo into the media for your review Normal [facility] 36 Pt calls for echocardiogram results. Normal [facility] Urine Cultureon 04-04-2024 Bacteria identified Cx Nom (U) No Growth 2 Days PERFORMED BY: [address] [place] [address] PATHOLOGIST H[employer]EL [employer] ATT[employer] LAURENT M.D. [facility] Comment on above: Performed By: #### C UU #### [address] [address] [facility] 36on 03-27-2024 36 Pt notified. Echo order faxed to [place] and mailed to pt [facility] 36 Monitor and stress test are in the media [facility] 36 Patient calls for he r financial aid results and stress test results. She wore monitor for 4 days. I called Tom for the results. They will attach in media when available. Pt notified [facility] 36on 03-06-2024 36 Patient notified. Priscilla jimenez would like order faxed to her PCP and mailed to her home [facility] 36 ----- Message from Pietro Eller NP sent at 03/06/2024 12:52 PM EDT ----- Treadmill stress/ no imaging for EKG abnormal. Call patient ----- Message ----- From: Interface, Lab Results In Sent: 03/05/2024 5:53 PM EDT To: Pietro Eller NP [facility] 29on 03-05-2024 29 Addended by: JERONIMO AYALA on: 03/05/2024 03:34 PM Modules accepted: Orders [facility] Office Visiton 03-05-2024 Follow-up visit [id number] Iris Thomason 1965 F Date Provider Department Center 03/05/2024 PIETRO BESS [facility] [place] Heart[facility] No family history on file Level of Service:86393 [place] OFFICE/OUTPATIENT ESTABLISHED LOW MDM 20 MIN [facility] FL esophaguson 02-13-2024 [place] esophagus [facility] Main [place] [address] [place] [id number] Fluoroscopy Report Signed Patient: Iris Thomason MR#: [id number] : 1965 Acct:[id number] Age/Sex: 59 / F ADM Date: 02/13/24 Loc: XD Room: Type: [facility] Attending Dr: Tina Morelos DO Copies to: Tina Morelos DO Ordering Provider: Tina Morelos DO Date of Service: 02/13/24 FL/FL esophagus: R13.10 - Dysphagia, unspecified Fluoroscopy esophagram HISTORY: Dysphagia. 26 imagesCumulative Air Kerma in mGy: 25.081 mGy FINDINGS: The valleculae and pyriform sinuses are symmetrical. The esophagus has normal course and caliber without fixed intraluminal filling defect or mucosal identified. No hiatal hernia seen. No reflux of contrast into the esophagus. No aspiration of contrast seen. No significant stasis of esophageal contrast. No esophageal dysmotility identified. FL/FL esophagus IMPRESSION: No gastroesophageal reflux. No fixed narrowing of the esophagus. Impression dictated by: Heri Chavarria M.D.02/13/2024 10:42 AM Dictation Location: [place] [address] Transcribed By: [facility] 02/13/24 1042 Dictated By: Heri Chavarria DO 02/13/24 1039 Signed By: 02/13/24 1042 Normal [facility] BI MAMMOGRAM SCREENING TOMOS YORLANDOIS BILATERALon 02-09-2024 BI MAMMOGRAM SCREENING TOMOSYNTHESIS BILATERAL This is a summary report. The complete report is available in the patient's medical record. If you cannot access the medical record, please contact the sending organization for a detailed fax or copy. Examination: BI MAMMOGRAM SCREENING TOMOSYNTHESIS BILATERAL Clinical History: screening Technique: Screening digital mammography study of both breasts was performed with 2-D and 3-D tomosynthesis imaging. Study was compared to the prior exam dated 03/23/2022. Findings: There is no evidence of interval dominant spiculated mass, grouped microcalcifications, or skin thickening which would be suggestive of malignancy. Benign-appearing nodular density in the mid/superior aspect of the right breast similar to the prior study as well as prior reviewed study dated 12/19/2018. Partially visualized axillary lymph nodes suggested on the left. IMPRESSION: Impression: No specific evidence of malignancy seen in either breast. Breast Density: There are scattered areas of fibroglandular density BiRads: BIRADS 2 - Benign Recommended follow-up: Routine Screening Mamm ELECTRONICALLY SIGNED BY: Zbigniew Quiroz M.D. Normal Not Available Comment on above: Order Comment: Us an d spot compression prn CNPNon 11-30-2023 CNPN Telephone (ENDOLN) IRIS THOMASON ([id number]) 1965 F Date Time Provider Department 11/30/23 MATTHEW HALL During your visit today, we recorded the following information about you: Leticia Millan 11/30/2023 1:45 PM Signed Iris is calling Matthew Hall MD today with concern regarding Patient Question and lab results. She is asking about labs that were sent over from [facility] in July. She states that the Thyroid AB was elevated and she wondered if anything should be done about this. Please review and advise. Patient has been identified by name and birthdate. Person calling: self Call patient at: at home [phone] (home) [phone] (cell) Was an appointment scheduled: No Closing statement: Results or non-symptom based questions: Thank you for calling [facility], your call will be returned within the next business day. Gwen Smith LPN 11/30/2023 5:37 PM Signed Labs are listed in Epic Allergies As of Date: 11/30/2023 Noted Allergy Reaction CONTRAST DYE 01/21/2014 14 - Other: See Comments Comments: chest pain , increased HR, increased BP AZITHROMYCIN 10/07/2014 8 - GI Upset Comments: Severe diarrhea CEPHALOSPORINS 12/25/2003 16 - Unknown FLAGYL (METRONIDAZOLE HCL) 10/21/2014 6 - Diarrhea Comments: Had diarrhea and dizziness and funny feeling in head and arms MORPHINE 03/11/2014 14 - Other: See Comments Comments: CHEST PAIN AND INCREASED BLOOD PRESSURE PENICILLINS 10/07/2014 8 - GI Upset Comments: Severe diarrhea TAPE (ADHESIVE TAPE (ROSINS)) 01/21/2014 14 - Other: See Comments Comments: blisters Date Reviewed: 11/16/2023 Reviewed by: Yi Jama MA - Fully Assessed Reason for Visit: Patient Question [1477] Prescriptions as of 12/10/2023 - ibuprofen (MOTRIN) 600 mg tablet Take 1 tablet by mouth every 6 hours as needed for Pain. Take with food. - gabapentin (NEURONTIN) 100 mg capsule Take 1 capsule by mouth once daily. - nebivolol (BYSTOLIC) 5 mg tablet Take 5 mg by mouth once daily. Problem List As Of Date 11/30/2023 Noted Resolved Female stress incontinence [N39.3] 11/25/2014 Multiple thyroid nodules [E04.2] 12/24/2015 Endometrial polyp [N84.0] 06/13/2017 Intramural and submucous leiomyoma of uterus [D*08/01/2017 Submucous leiomyoma of uterus [D25.0] 08/01/2017 Left ear pain [H92.02] 02/07/2018 Autonomic dysfunction [G90.9] 04/17/2018 POTS (postural orthostatic tachycardia syndrome*04/17/2018 Atypical glandular cells of undetermined signif*05/30/2018 Encounter Status:Closed by LETICIA MILLAN on 12/10/23 Normal [facility] CT abdomen pelvis wo conon 0 11-24-2023 CT abdomen pelvis wo [facility] [place] [address] CT Scan Report Signed Patient: Iris Thomason MR#: [id number] : 1965 Acct:[id number] Age/Sex: 58 / F ADM Date: 11/24/23 Loc: Room: Type: [facility] Attending Dr: Gautam Dill DO Copies to: Gautam Dill DO Ordering Provider: Gautam Dill DO Date of Service: 11/24/23 CT/CT abdomen pelvis wo con: R10.9, R14.0, R10.11 CT Abdomen and Pelvis withoutcontrast TECHNIQUE: Axial imaging with 2-D reconstruction. . The CT exam was performed using one or more the following dose reduction techniques: Automated exposure control, adjustment of the MA and/or Kv according to patient size, or use of the iterative reconstruction technique. COMPARISON: 01/17/2009 History: Contrast allergy. Diarrhea for 5 months. LIMITATIONS: None LOWER THORAX Unremarkable LIVER: Hepatic steatosis GALLBLADDER: No gallbladder abnormality identified. BILE DUCTS: No dilatation SPLEEN: Unremarkable PANCREAS: Unremarkable ADRENAL GLANDS: Unremarkable KIDNEYS:Unremarkable AORTA: No abdominal aortic aneurysm identified. RETROPERITONEUM: No significant retroperitoneal abnormalities identified. MESENTERY:Unremarkabl e SMALL BOWEL: The small bowel loops are nondistended. APPENDIX: Appendectomy changes identified. COLON: Moderate proximal constipation URINARY BLADDER: Urinary bladder is unremarkable. REPRODUCTIVE SYSTEM: Reproductive structures are unremarkable. PNEUMOPERITONEUM: None PERITONEAL FLUID:None BONY STRUCTURES: Unremarkable ABDOMINAL WALL: Unremarkable CT/CT abdomen pelvis wo con IMPRESSION: Moderate proximal constipation. No colitis or diverticulitis. Impression dictated by: Heri Chavarria M.D.11/24/2023 12:11 PM Dictation Location: [place] [address] Transcribed By: [facility] 11/24/23 1211 Dictated By: Heri Chavarria DO 11/24/23 1208 Signed By: 11/24/23 1211 Normal [facility] US gall bladderon 11-24-2023 US gall bladder [facility] [place] [address] [place] [address] Ultrasound Report Signed Patient: Iris Thomason MR#: [id number] : 1965 Acct:[id number] Age/Sex: 58 / F ADM Date: 11/24/23 Loc: Room: Type: [facility] Attending Dr: Gautam Dill DO Ordering Provider: Gautam Dill DO Date of Service: 11/24/23 US/US gall bladder: R10.9 - Unspecified abdominal pain Copies to: Gautam Dill DO Gallbladder ultrasound HISTORY: Right upper quadrant pain. COMPARISON: None Negative ultrasound Levy's sign reported. COMMON BILE DUCT: Normal caliber. No intraluminal abnormality. LIVER CONTOUR: Normal. LIVER PARENCHYMA: Normal echogenicity HEPATIC LESION: None INTRAHEPATIC BILIARY DUCTAL DILATATION No ductal dilatation identified. GALLSTONES: No shadowing gallstones. GALLBLADDER SLUDGE: No gallbladder sludge. GALLBLADDER WALL: Normal thickness PERICHOLECYSTIC FLUID: None Pancreas: Unremarkable PORTAL VEIN: Normal blood flow. Liver size: Normal No RIGHT hydronephrosis identified. US/US gall bladder IMPRESSION: Unremarkable exam Impression dictated by: Heri Chavarria M.D.11/24/2023 10:38 AM Dictation Location: [place] [address] Tech: Jenni Garibay Transcribed By: PWS 11/24/23 1038 Dictated By: Heri Chavarria DO 11/24/23 1037 Signed By: 11/24/23 1038 Normal [facility] CNOVon 11-16-2023 CNOV Office Visit (ENDOLN ) KATELINREYNAJENNIFER ([id number]) 1965 F Date Time Provider Department 11/16/23 3:40 PM LAINEY LINDSEY ENDOLN During your visit today, we recorded the following information about you: Pulse Blood pressure 62/minute 153/65 Yi Jama MA 11/16/2023 4:23 PM Signed UNIVERSAL PROTOCOL / SAFETY CHECKLIST Procedure to be Performed: Fine needle aspiration of the Right thyroid nodule. Sign In: A Moment of CARE was completed. Personnel directly involved with the procedure wore the appropriate PPE (Personal Protective Equipment). Patient/Surrogate Stated/Verified: PATIENT VERIFIED(optional for EMERGENT procedures): Patient name, Date of , Relevant allergies, and The intended procedure Time Out Communication: Intended patient and procedure match the source documents. Consent documented and matches the intended procedure. Relevant labs, photos, and/or imaging studies have been reviewed. Correct side/site marked and visible. No medications required for procedure. Fire risk assessed and interventions discussed. No implant(s) inserted. Sign Out: SIGN OUT (optional for EMERGENT procedures): All specimen containers correctly labeled. All instruments, equipment, possible retained foreign bodies accounted for. Post-procedure follow-up management communicated and Plan of Care Visit completed when applicable. JOAN Pulido Ossama M, MD, PhD 11/16/2023 4:23 PM Signed Fine needle aspiration of Thyroid Nodule (November 16, 2023) Referring Physician: Matthew Hall MD Primary Care Physician: Gautam Dill DO Indication: (E04.2) Multiple thyroid nodules (primary encounter diagnosis) Comment: FNA of right lobe thyroid nodule Plan: US THYROID FNA (POC) ENDO USE ONLY, CYTOLOGY NON-SEAM CLOSER Iris Thomason was identified by name and date, acknowledges here to have an FNA of right lobe thyroid nodule performed. Patient on anti-platelet or anticoagulant drugs: No The risks, benefits and anticipated outcomes of the procedure, the risks and benefits of the alternatives to the procedure, and the roles and tasks of the personnel to be involved, were discussed with the patient. UNIVERSAL PROTOCOL / SAFETY CHECKLIST Procedure to be Performed: FNA of right lobe thyroid nodule Sign In: A Moment of CARE was completed. Personnel directly involved with the procedure wore the appropriate PPE (Personal Protective Equipment). Patient/Surrogate Stated/Verified: PATIENT VERIFIED(optional for EMERGENT procedures): Patient name, Date of , Relevant allergies, and The intended procedure Time Out Communication: Intended patient and procedure match the source documents. Consent documented and matches the intended procedure. Relevant labs, photos, and/or imaging studies have been reviewed. Sign Out: SIGN OUT (optional for EMERGENT procedures): All specimen containers correctly labeled. Lainey Lindsey MD, PhD She was positionned in decubitus with the neck in extension. FNA of right lobe thyroid nodule: I used Ice pack to numb the skin overlying the area of the nodule. The skin was prepped in the usual aseptic manner. I performed 3 passes through target nodule using G-25 needles under sonographic guidance. Character of the aspirate: A small drop of blood Afirma sample sent: Yes The patient tolerated the procedure. Complications: No She was told to go the emergency room if there is severe pain or swelling in the neck area. She will be notified of the result by telephone. Follow up:With Dr. Apolinar MD, PhD Referring Provider: MATTHEW HALL [[id number]] Allergies As of Date: 11/16/2023 Noted Allergy Reaction CONTRAST DYE 01/21/2014 14 - Other: See Comments Comments: chest pain , increased HR, increased BP AZITHROMYCIN 10/07/2014 8 - GI Upset Comments: Severe diarrhea CEPHALOSPORINS 12/25/2003 16 - Unknown FLAGYL (METRONIDAZOLE HCL) 10/21/2014 6 - Diarrhea Comments: Had diarrhea and dizziness and funny feeling in head and arms MORPHINE 03/11/2014 14 - Other: See Comments Comments: CHEST PAIN AND INCREASED BLOOD PRESSURE PENICILLINS 10/07/2014 8 - GI Upset Comments: Severe diarrhea TAPE (ADHESIVE TAPE (ROSINS)) 01/21/2014 14 - Other: See Comments Comments: blisters Date Reviewed: 11/16/2023 Reviewed by: Yi Jama MA - Fully Assessed Reason for Visit: Thyroid Problem [110] Primary Visit Diagnosis:Multiple thyroid nodules [E04.2] Order(s): THYROID FNA (POC) ENDO USE ONLY [[id number]] Order #: [id number]. #:[id number]: 1 CYTOLOGY NON-SEAM CLOSER [[id number]] Order #: [id number]. #:[id number] Prescriptions as of 11/16/2023 - ibuprofen (MOTRIN) 600 mg tablet Take 1 tablet by mouth every 6 hours as needed for Pain. Take with food. - gabapentin (NEURONTIN) 100 mg capsule (more content not included)... Normal [facility] CYTOLOGY NON-GYNon CASE REPORT Normal [facility] Comment on above: Order Comment: Speci men Type: SPECIMEN OBTAINED BY ASPIRATION Ordering Facility: [facility] Address: [address] [place] [address] Result Comment: [facility] Cytology Report Case: [id number] Authorizing Provider: Lainey Lindsey MD, PhD Collected: 11/16/2023 04:06 PM Ordering Location: Endocrinology Received: 11/16/2023 04:19 PM Pathologist: Dick Sue MD Specimen: Thyroid, Right, Lobe Performed By: #### C YTONOAna #### [facility] CLIA [id number] [address] [place] [address] [place] [address] [place] CLINICAL HISTORY Normal [facility] Comment on above: Order Comment: Speci men Type: SPECIMEN OBTAINED BY ASPIRATION Ordering Facility: [facility] Address: [address] [place] [address] Result Comment: Mult iple thyroid nodules Afirma sample received Performed By: #### C YTONON #### [facility] CLIA [id number] [address] [place] [address] [place] FINAL DIAGNOSIS Normal [facility] Comment on above: Order Comment: Speci men Type: SPECIMEN OBTAINED BY ASPIRATION Ordering Facility: [facility] Address: [address] [place] [address] Result Comment: A. T hyroid, Right Lobe, Fine Needle Aspirate: Benign. [place] follicular cells and abundant colloid. The following cell blocks were associated with this case: A1 Cell Block, Alcohol Fixed Performed By: #### C YTONON #### [facility] CLIA [id number] [address] [place] [address] [place] FINAL PERFORMING LAB Normal [facility] Comment on above: Order Comment: Speci men Type: SPECIMEN OBTAINED BY ASPIRATION Ordering Facility: [facility] Address: [address] [place] [address] Result Comment: Tech nical component, aerobics teacher screening performed at [facility], [address] [place] [address] CLIA# [id number] Diagnostic interpretation performed at [facility], [address] [place] [address] CLIA# [id number] Senior Media Director: Baron Morlye M.D. Performed By: #### C YTONON #### [facility] CLIA [id number] [address] [place] [address] [place] GROSS DESCRIPTION Normal [facility] Comment on above: Order Comment: Speci men Type: SPECIMEN OBTAINED BY ASPIRATION Ordering Facility: [facility] Address: [address] [place] [address] Result Comment: A. T hyroid, Right, Lobe 30 cc clear pink CytoLyt . ThinPrep and Cell Block prepared and 2 smears. Afirma sample received Performed By: #### C YTONON #### [facility] CLIA [id number] [address] [place] [address] [place] US THYROID FNA (POC) ENDO US E ONLYon 11-16-2023 [facility] CNPNon 11-07-2023 CNPN Telephone (EMQ) THOMASONIRIS RHOADES ([id number]) 1965 F Date Time Provider Department 11/07/23 LAINEY LINDSEY During your visit today, we recorded the following information about you: Sheela Banks 11/07/2023 2:07 PM Signed Iris is calling Lainey Lindsey MD, PhD today because she last had her US done in April and has canceled her biopsy a few times since then She is scheduled for biopsy next Tuesday but is asking if she needs another regular US at all ? Please advise Patient has been identified by name and birthdate. Duration of symptoms: N/A Person calling: self Call patient at: at home [phone] (home) [phone] (cell) Was an appointment scheduled: No Closing statement: Results or non-symptom based questions: Thank you for calling [facility], your call will be returned within the next business day. Gwen Velásquez LPN 11/08/2023 3:47 PM Signed Spoke to patient, let her know that another US is not necessary. Patient verbalized understanding. Allergies As of Date: 11/07/2023 Noted Allergy Reaction CONTRAST DYE 01/21/2014 14 - Other: See Comments Comments: chest pain , increased HR, increased BP AZITHROMYCIN 10/07/2014 8 - GI Upset Comments: Severe diarrhea CEPHALOSPORINS 12/25/2003 16 - Unknown FLAGYL (METRONIDAZOLE HCL) 10/21/2014 6 - Diarrhea Comments: Had diarrhea and dizziness and funny feeling in head and arms MORPHINE 03/11/2014 14 - Other: See Comments Comments: CHEST PAIN AND INCREASED BLOOD PRESSURE PENICILLINS 10/07/2014 8 - GI Upset Comments: Severe diarrhea TAPE (ADHESIVE TAPE (ROSINS)) 01/21/2014 14 - Other: See Comments Comments: blisters Date Reviewed: 03/22/2023 Reviewed by: Bekah Fox MA - Fully Assessed Reason for Visit: Patient Question [1477] Prescriptions as of 11/08/2023 - ibuprofen (MOTRIN) 600 mg tablet Take 1 tablet by mouth every 6 hours as needed for Pain. Take with food. - gabapentin (NEURONTIN) 100 mg capsule Take 1 capsule by mouth once daily. - nebivolol (BYSTOLIC) 5 mg tablet Take 5 mg by mouth once daily. Problem List As Of Date 11/07/2023 Noted Resolved Female stress incontinence [N39.3] 11/25/2014 Multiple thyroid nodules [E04.2] 12/24/2015 Endometrial polyp [N84.0] 06/13/2017 Intramural and submucous leiomyoma of uterus [D*08/01/2017 Submucous leiomyoma of uterus [D25.0] 08/01/2017 Left ear pain [H92.02] 02/07/2018 Autonomic dysfunction [G90.9] 04/17/2018 POTS (postural orthostatic tachycardia syndrome*04/17/2018 Atypical glandular cells of undetermined signif*05/30/2018 Encounter Status:Closed by GWEN MILLAN on 11/08/23 Normal [facility] Alanine aminotransferase [En zymatic activity/volume] in Serum or PlasmaOrdered By: Gautam Dill on 10-19-2023 ALT [Catalytic activity/Vol] 16 U/L Normal [facility] Comment on above: Performed By: #### T 4F, CMP, TSH3, ESR, LIPID, CBC #### [address] Albumin [Mass/volume] in Ser um or Plasma by Bromocresol green (BCG) dye binding methoOrdered By: Gautam Dill on 10-19-2023 Albumin BCG dye [Mass/Vol] 4.4 g/dL 3.5-5.7 [facility] Alkaline phosphatase [Enzyma tic activity/volume] in Serum or PlasmaOrdered By: Gautam Dill on 10-19-2023 ALP [Catalytic activity/Vol] 89 U/L Normal 34-104 [facility] Comment on above: Performed By: #### T 4F, CMP, TSH3, ESR, LIPID, CBC #### [facility] [address] Aspartate aminotransferase [ Enzymatic activity/volume] in Serum or PlasmaOrdered By: Gautam Dill on 10-19-2023 AST [Catalytic activity/Vol] 15 U/L Normal 13-39 [facility] Comment on above: Performed By: #### T 4F, CMP, TSH3, ESR, LIPID, CBC #### [facility] [address] Automated basophil %Ordered By: Gautam Dill on 10-19-2023 Basophils/100 WBC (Bld) 1.0 % Normal . [facility] Comment on above: Performed By: #### T 4F, CMP, TSH3, ESR, LIPID, CBC #### [address] Automated basophil countOrde red By: Gautam Dill on 10-19-2023 Basophils (Bld) [#/Vol] 0.0 10*3/uL Normal 0.0-0.2 [facility] Comment on above: Performed By: #### T 4F, CMP, TSH3, ESR, LIPID, CBC #### [address] Automated blood monocyte cou ntOrdered By: Gautam Dill on 10-19-2023 Monocytes (Bld) [#/Vol] 0.3 10*3/uL Normal 0.0-0.8 [facility] Comment on above: Performed By: #### T 4F, CMP, TSH3, ESR, LIPID, CBC #### [address] Automated eosinophil %Ordere d By: Gautam Dill on 10-19-2023 Eosinophils/100 WBC (Bld) 6.6 % Normal . [facility] Comment on above: Performed By: #### T 4F, CMP, TSH3, ESR, LIPID, CBC #### [address] Automated eosinophil countOr dered By: Gautam Dill on 10-19-2023 Eosinophils (Bld) [#/Vol] 0.3 10*3/uL Normal 0.0-0.45 [facility] Comment on above: Performed By: #### T 4F, CMP, TSH3, ESR, LIPID, CBC #### [address] Automated monocyte %Ordered By: Gautam Dill on 10-19-2023 Monocytes/100 WBC (Bld) 6.7 % Normal . [facility] Comment on above: Performed By: #### T 4F, CMP, TSH3, ESR, LIPID, CBC #### [address] Automated neutrophil %Ordere d By: Gautam Dill on 10-19-2023 Neutrophils/100 WBC (Bld) 49.7 % Normal . [facility] Comment on above: Performed By: #### T 4F, CMP, TSH3, ESR, LIPID, CBC #### [address] Bilirubin.total [Mass/volume ] in Serum or PlasmaOrdered By: Gautam Dill on 10-19-2023 Bilirubin [Mass/Vol] 0.5 mg/dL Normal 0.3-1.0 [facility] Comment on above: Performed By: #### T 4F, CMP, TSH3, ESR, LIPID, CBC #### [address] Calcium [Mass/volume] in Ser um or PlasmaOrdered By: Gautam Dill on 10-19-2023 Calcium [Mass/Vol] 9.4 mg/dL Normal 8.6-10.3 [facility] Comment on above: Performed By: #### T 4F, CMP, TSH3, ESR, LIPID, CBC #### [address] Carbon dioxide, total [Moles /volume] in Serum or PlasmaOrdered By: Gautam Dill on 10-19-2023 CO2 [Moles/Vol] 28.0 mmol/L Normal 21.0-31.0 [facility] Comment on above: Performed By: #### T 4F, CMP, TSH3, ESR, LIPID, CBC #### [facility] [address] [place] [address] [place] Chloride [Moles/volume] in S bonita or PlasmaOrdered By: Gautam Dill on 10-19-2023 Chloride [Moles/Vol] 107 mmol/L Normal 98-107 [facility] Comment on above: Performed By: #### T 4F, CMP, TSH3, ESR, LIPID, CBC #### [facility] [address] [place] [id number] [place] Cholesterol [Mass/volume] in Serum or PlasmaOrdered By: Gautam Dill on 10-19-2023 Cholesterol [Mass/Vol] 220 mg/dL High 140-200 [facility] Comment on above: Chol less than 200 m g/dl low riskChol 201-239 mg/dl borderline riskChol 240 mg/dl and greater high risk Result Comment: Chol less than 200 mg/dl low risk Chol 201-239 mg/dl borderline risk Chol 240 mg/dl and greater high risk Performed By: #### T 4F, CMP, TSH3, ESR, LIPID, CBC #### [facility] [address] [place] [id number] [place] Cholesterol in LDL Calc [Mas s/Vol]Ordered By: Gautam Dill on 10-19-2023 Cholesterol in LDL [Mass/Vol] 130 mg/dL High 0-100 [facility] Comment on above: LDL ATP III CLASSIFI CATIONLDL less than 100 mg/dL OptimalLDL 100-129 mg/dL Near or above optimalLDL 130-159 mg/dL Borderline highLDL 160-189 mg/dL HighLDL greater than 189 mg/dL Very high Cholesterol in VLDL Calc [Ma ss/Vol]Ordered By: Gautam Dill on 10-19-2023 Cholesterol in VLDL [Mass/Vol] 17 mg/dL [facility] Complete Blood Count Auto Di ffon 10-19-2023 Mean Corpuscular HGB Conc 33.7 g/dL Normal 32.0-35.0 [facility] Comment on above: Performed By: #### T 4F, CMP, TSH3, ESR, LIPID, CBC #### [address] NRBC% 0.2 /100{WBC} Normal 0-0.5 [facility] Comment on above: Performed By: #### T 4F, CMP, TSH3, ESR, LIPID, CBC #### [address] Comprehensive Metabolic Pane vinny 10-19-2023 Albumin [Mass/Vol] 4.4 g/dL Normal 3.5-5.7 [facility] Comment on above: Performed By: #### T 4F, CMP, TSH3, ESR, LIPID, CBC #### [address] GFR/1.73 sq M.predicted MDRD (S/P/Bld) [Vol rate/Area] mL/min/{1.73_m2} Normal [facility] Comment on above: Performed By: #### T 4F, CMP, TSH3, ESR, LIPID, CBC #### [address] Creatinine [Mass/volume] in Serum or PlasmaOrdered By: Gautam Dill on 10-19-2023 Creatinine [Mass/Vol] 0.82 mg/dL Normal 0.60-1.20 [facility] Comment on above: Performed By: #### T 4F, CMP, TSH3, ESR, LIPID, CBC #### [address] Erythrocyte Sedimentation Ra jessica 10-19-2023 ESR (Bld) [Velocity] 14 mm/h Normal 0-29 [facility] Comment on above: Result Comment: PERF ORMED BY: [place] [address] PATHOLOGIST HOTEL [employer]AKFAST ATTENDANT LUCRETIA SHANKAR M.D. Performed By: #### T 4F, CMP, TSH3, ESR, LIPID, CBC #### [facility] [address] Erythrocyte distribution wid th [Ratio] by Automated countOrdered By: Gautam Dill on 10-19-2023 Erythrocyte distribution width (RBC) [Ratio] 13.8 % Normal 11.9-15.3 [facility] Comment on above: Performed By: #### T 4F, CMP, TSH3, ESR, LIPID, CBC #### [facility] [address] Erythrocyte sedimentation ra te by Photometric methodOrdered By: Gautam Dill on 10-19-2023 ESR Photometric method (Bld) [Velocity] 14 mm/hr 0-29 [facility] Erythrocytes [#/volume] in B lood by Automated countOrdered By: Gautam Dill on 10-19-2023 RBC (Bld) [#/Vol] 4.78 10*6/uL Normal 3.60-5.00 [facility] Comment on above: Performed By: #### T 4F, CMP, TSH3, ESR, LIPID, CBC #### [facility] [address] Glucose [Mass/volume] in Ser um or PlasmaOrdered By: Gautam Dill on 10-19-2023 Glucose [Mass/Vol] 92 mg/dL Normal 70-100 [facility] Comment on above: ADA recommended refe rence rangeRandom Glucose Reference Range is dependent on time and content of last meal. Glucose of more than 200 mg/dL in a nonstressed, ambulatory subject supports the diagnosis of Diabetes Mellitus. Result Comment: [place] om Glucose Reference Range is dependent on time and content of last meal. Glucose of more than 200 mg/dL in a nonstressed, ambulatory subject supports the diagnosis of Diabetes Mellitus. ADA recommended reference range Performed By: #### T 4F, CMP, TSH3, ESR, LIPID, CBC #### [facility] [address] Hematocrit [Volume Fraction] of Blood by Automated countOrdered By: Gautam Dill on 10-19-2023 Hematocrit (Bld) [Volume fraction] 42.9 % Normal 34.0-46.4 [facility] Comment on above: Performed By: #### T 4F, CMP, TSH3, ESR, LIPID, CBC #### [facility] [address] Hemoglobin [Mass/volume] in BloodOrdered By: Gautam Dill on 10-19-2023 Hemoglobin (Bld) [Mass/Vol] 14.5 g/dL Normal 11.8-15.4 [facility] Comment on above: Performed By: #### T 4F, CMP, TSH3, ESR, LIPID, CBC #### [facility] [address] Leukocytes [#/volume] correc daron for nucleated erythrocytes in Blood by Automated counOrdered By: Gautam Dill on 10-19-2023 WBC corrected for nucl RBC Auto (Bld) [#/Vol] 4.4 10*3/uL 3.8-11.6 [facility] Leukocytes [#/volume] in Blo od by Automated countOrdered By: Gautam Dill on 10-19-2023 WBC (Bld) [#/Vol] 4.4 10*3/uL Normal 3.8-11.6 [facility] Comment on above: Performed By: #### T 4F, CMP, TSH3, ESR, LIPID, CBC #### [address] Lipid Panelon 10-19-2023 LDL Cholesterol,Calculated 130 mg/dL High 0-100 [facility] Comment on above: Result Comment: LDL ATP III CLASSIFICATION LDL less than 100 mg/dL Optimal LDL 100-129 mg/dL Near or above optimal LDL 130-159 mg/dL Borderline high LDL 160-189 mg/dL High LDL greater than 189 mg/dL Very high Performed By: #### T 4F, CMP, TSH3, ESR, LIPID, CBC #### [facility] [address] Triglyceride w/Reflex 85 mg/dL Normal 0-149 [facility] Comment on above: Result Comment: TRIG ATP III CLASSIFICATION TRIG less than 150 mg/dL Normal TRIG 150-199 mg/dL Borderline high TRIG 200-500 mg/dL High TRIG greater than 500 mg/dL Very high Standard traceable to the Center for Disease Conrtrol and Prevention (CDC) test method. Performed By: #### T 4F, CMP, TSH3, ESR, LIPID, CBC #### [address] VLDL CHOLESTEROL 17 mg/dL Normal [facility] Comment on above: Performed By: #### T 4F, CMP, TSH3, ESR, LIPID, CBC #### [address] Lymphocytes [#/volume] in Bl ood by Automated countOrdered By: Gautam Dill on 10-19-2023 Lymphocytes (Bld) [#/Vol] 1.6 10*3/uL Normal 1.00-4.8 [facility] Comment on above: Performed By: #### T 4F, CMP, TSH3, ESR, LIPID, CBC #### [address] Lymphocytes/100 leukocytes i n Blood by Automated countOrdered By: Gautam Dill on 10-19-2023 Lymphocytes/100 WBC (Bld) 36.0 % Normal . [facility] Comment on above: Performed By: #### T 4F, CMP, TSH3, ESR, LIPID, CBC #### [address] MCH [Entitic mass] by Automa daron countOrdered By: Gautam Dill on 10-19-2023 MCH (RBC) [Entitic mass] 30.2 pg Normal 24.7-34.3 [facility] Comment on above: Performed By: #### T 4F, CMP, TSH3, ESR, LIPID, CBC #### [address] MCHC Auto (RBC) [Mass/Vol]Or dered By: Gautam Dill on 10-19-2023 MCHC (RBC) [Mass/Vol] 33.7 g/dL 32.0-35.0 [facility] MCV [Entitic volume] by Auto mated countOrdered By: Gauatm Dill on 10-19-2023 MCV (RBC) [Entitic vol] 89.9 fL Normal 80-100 [facility] Comment on above: Performed By: #### T 4F, CMP, TSH3, ESR, LIPID, CBC #### [facility] [address] Neutrophils [#/volume] in Bl ood by Automated countOrdered By: Gautam Dill on 10-19-2023 Neutrophils (Bld) [#/Vol] 2.2 10*3/uL Normal 1.8-7.7 [facility] Comment on above: Performed By: #### T 4F, CMP, TSH3, ESR, LIPID, CBC #### [facility] [address] No Panel InformationOrdered By: Gautam Dill on 10-19-2023 Estimated GFR (CKD-EPI) > 60.0 mL/Min [facility] Creatinine Clearance (Chem N/A [facility] Nucleated erythrocytes [Pres ence] in Blood by Automated countOrdered By: Gautam Dill on 10-19-2023 Nucleated RBC Auto Ql (Bld) 0.2 /100{WBC} 0-0.5 [facility] Platelet mean volume [Entiti c volume] in Blood by Automated countOrdered By: Gautam Dill on 10-19-2023 Platelet mean volume (Bld) [Entitic vol] 9.5 fL Normal 6.3-10.7 [facility] Comment on above: Performed By: #### T 4F, CMP, TSH3, ESR, LIPID, CBC #### [facility] [address] Platelets [#/volume] in Bloo d by Automated countOrdered By: Gautam Dill on 10-19-2023 Platelets (Bld) [#/Vol] 191 10*3/uL Normal 150-450 [facility] Comment on above: Performed By: #### T 4F, CMP, TSH3, ESR, LIPID, CBC #### [address] Potassium [Moles/volume] in Serum or PlasmaOrdered By: Gautam Dill on 10-19-2023 Potassium [Moles/Vol] 4.2 mmol/L Normal 3.5-5.1 [facility] Comment on above: Performed By: #### T 4F, CMP, TSH3, ESR, LIPID, CBC #### [facility] [address] Protein [Mass/volume] in Ser um or PlasmaOrdered By: Gautam Dill on 10-19-2023 Protein [Mass/Vol] 6.5 g/dL Normal 6.4-8.9 [facility] Comment on above: Performed By: #### T 4F, CMP, TSH3, ESR, LIPID, CBC #### [facility] [address] [place] [address] Serum globulin measurement b y calculation (mass/volume)Ordered By: Gautam Dill on 10-19-2023 Globulin (S) [Mass/Vol] 2.1 g/dL Normal [facility] Comment on above: Performed By: #### T 4F, CMP, TSH3, ESR, LIPID, CBC #### [facility] [address] [place] [address] Serum or plasma albumin/glob ulin mass ratioOrdered By: Gautam Dill on 10-19-2023 Albumin/Globulin [Mass ratio] 2.1 {ratio} Normal [facility] Comment on above: Performed By: #### T 4F, CMP, TSH3, ESR, LIPID, CBC #### [facility] [address] [place] [address] Serum or plasma anion gap de terminationOrdered By: Gautam Dill on 10-19-2023 Anion gap [Moles/Vol] 11.2 mmol/L Normal 6.0-15.0 [facility] Comment on above: Performed By: #### T 4F, CMP, TSH3, ESR, LIPID, CBC #### [facility] [address] [place] [address] Serum or plasma high density lipoprotein (HDL) cholesterol measurementOrdered By: Gautam Dill on 10-19-2023 Cholesterol in HDL [Mass/Vol] 73 mg/dL Normal 23-92 [facility] Comment on above: HDL CHOL ATP-III CLA SSIFICATION Cardiovascular RiskHDL > or equal to 60 mg/dL LOWHDL < 40 mg/dL HIGH Result Comment: HDL CHOL ATP-III CLASSIFICATION Cardiovascular Risk HDL > or equal to 60 mg/dL LOW HDL < 40 mg/dL HIGH Performed By: #### T 4F, CMP, TSH3, ESR, LIPID, CBC #### [facility] [address] Serum or plasma total choles terol/high density lipoprotein (HDL) cholesterol mass ratOrdered By: Gautam Dill on 10-19-2023 Cholesterol.total/Dorinda sterol in HDL [Mass ratio] 3.0 {ratio} Normal <5.0 [facility] Comment on above: Performed By: #### T 4F, CMP, TSH3, ESR, LIPID, CBC #### [address] Sodium [Moles/volume] in Ser um or PlasmaOrdered By: Gautam Dill on 10-19-2023 Sodium [Moles/Vol] 142 mmol/L Normal 136-145 [facility] Comment on above: Performed By: #### T 4F, CMP, TSH3, ESR, LIPID, CBC #### [address] Thyrotropin [Units/volume] i n Serum or PlasmaOrdered By: Gautam Dill on 10-19-2023 TSH Qn 2.40 m[IU]/L Normal 0.45-5.33 [facility] Comment on above: Result Comment: PERF ORMED BY: [place] [address] PATHOLOGIST HOTEL BREAKFAST ATTENDANT LUCRETIA SHANKAR M.D. Performed By: #### T 4F, CMP, TSH3, ESR, LIPID, CBC #### [address] Thyroxine (T4) free [Mass/vo lume] in Serum or PlasmaOrdered By: Gautam Dill on 10-19-2023 Free T4 [Mass/Vol] 0.83 ng/dL Normal 0.61-1.12 [facility] Comment on above: Performed By: #### T 4F, CMP, TSH3, ESR, LIPID, CBC #### [facility] [address] [place] [id number] [facility] Triglyceride [Mass/volume] i n Serum or PlasmaOrdered By: Gautam Dill on 10-19-2023 Triglyceride [Mass/Vol] 85 mg/dL 0-149 [facility] Comment on above: TRIG ATP III CLASSIF ICATIONTRIG less than 150 mg/dL NormalTRIG 150-199 mg/dL Borderline highTRIG 200-500 mg/dL High TRIG greater than 500 mg/dL Very highStandard traceable to the Center for Disease Conrtrol and Prevention (CDC) test method. Urea nitrogen [Mass/volume] in Serum or PlasmaOrdered By: Gautam Dill on 10-19-2023 Urea nitrogen [Mass/Vol] 16 mg/dL Normal 7-25 [facility] Comment on above: Performed By: #### T 4F, CMP, TSH3, ESR, LIPID, CBC #### [facility] [address] [place] [id number] [facility] CNPNon 08-09-2023 CNPN Telephone (GYNMN) IRIS THOMASON ([id number]) 1965 F Date Time Provider Department 08/09/23 HEATHER BLANTON GYNMN During your visit today, we recorded the following information about you: [facility] 08/09/2023 1:01 PM Signed Reason for call: other - Provider name: Dr. Blanton Additional comments: pt was just seen and has more questions. She would like give them to me but state she has more questions Recommendation: routed to nurse triage pool Last visit in this department: 05/23/2018 Last distance health visit in this department: 08/08/2023 Heather Blanton MD Next visit in this department: Visit date not found Yovani Christian RN 08/09/2023 3:24 PM Signed Called pt and verified name and . Pt explained that she has concerns about the Mirena due to history of neurological issues and a weakened immune system. Pt has read that the hormonal effects of Mirena may possibly affect these systems and effect her hx of POTS, Liv Elise, increased antibodies. Reports that with her Hx of POTS she is concerned about increased fainting while being this med. Also, notes she has been experiencing hot flashes recently after being post menopausal after close to 3 years. Pt informed that the purpose of the Mirena is to assist with endometrial thickening. Pt would like to discuss her concerns in detail and see if there is anything she can try other than the Mirena. Yovani Christian RN August 09, 2023 3:24 PM Carla Velasquez RN 08/10/2023 1:52 PM Signed Called patient to discuss the following message from Dr. Blanton, verified name and : I left a voice message that after I have reviewed, I do not see a contraindication for using Mirena intrauterine device for her column precaster issue. If she wants to further discuss, should make a virtual visit or office visit. Heather Blanton MD Patient verified she received Dr. Blanton's message and she is going to call to schedule an office visit to discuss further. She has phone number to schedule. Carla Velasquez RN Allergies As of Date: 08/09/2023 Noted Allergy Reaction CONTRAST DYE 01/21/2014 14 - Other: See Comments Comments: chest pain , increased HR, increased BP AZITHROMYCIN 10/07/2014 8 - GI Upset Comments: Severe diarrhea CEPHALOSPORINS 12/25/2003 16 - Unknown FLAGYL (METRONIDAZOLE HCL) 10/21/2014 6 - Diarrhea Comments: Had diarrhea and dizziness and funny feeling in head and arms MORPHINE 03/11/2014 14 - Other: See Comments Comments: CHEST PAIN AND INCREASED BLOOD PRESSURE PENICILLINS 10/07/2014 8 - GI Upset Comments: Severe diarrhea TAPE (ADHESIVE TAPE (ROSINS)) 01/21/2014 14 - Other: See Comments Comments: blisters Date Reviewed: 03/22/2023 Reviewed by: Bekah Fox MA - Fully Assessed Reason for Visit: Question [1327] Prescriptions as of 08/11/2023 - ibuprofen (MOTRIN) 600 mg tablet Take 1 tablet by mouth every 6 hours as needed for Pain. Take with food. - gabapentin (NEURONTIN) 100 mg capsule Take 1 capsule by mouth once daily. - nebivolol (BYSTOLIC) 5 mg tablet Take 5 mg by mouth once daily. Problem List As Of Date 08/09/2023 Noted Resolved Female stress incontinence [N39.3] 11/25/2014 Multiple thyroid nodules [E04.2] 12/24/2015 Endometrial polyp [N84.0] 06/13/2017 Intramural and submucous leiomyoma of uterus [D*08/01/2017 Submucous leiomyoma of uterus [D25.0] 08/01/2017 Left ear pain [H92.02] 02/07/2018 Autonomic dysfunction [G90.9] 04/17/2018 POTS (postural orthostatic tachycardia syndrome*04/17/2018 Atypical glandular cells of undetermined signif*05/30/2018 Encounter Status:Closed by CARLA VELASQUEZ on 08/10/23 [facility] C[facility] Telephone (ENDOLN) IRIS THOMASON ([id number]) 1965 F Date Time Provider Department 07/15/23 MATTHEW HALL ENDOLN During your visit today, we recorded the following information about you: Matthew Hall MD 07/15/2023 7:14 PM Signed Received lab results order by Pt's PCP at [facility]. Biochemically euthyroid. Anti-thyroglobulin Ab are elevated, which is not surprising with the apparent h/o Graves' disease. I'll have investment professional team contact Pt to see if she is willing to have thyroid nodule FNA recommended last 04/2023. Allergies As of Date: 07/15/2023 Noted Allergy Reaction CONTRAST DYE 01/21/2014 14 - Other: See Comments Comments: chest pain , increased HR, increased BP AZITHROMYCIN 10/07/2014 8 - GI Upset Comments: Severe diarrhea CEPHALOSPORINS 12/25/2003 16 - Unknown FLAGYL (METRONIDAZOLE HCL) 10/21/2014 6 - Diarrhea Comments: Had diarrhea and dizziness and funny feeling in head and arms MORPHINE 03/11/2014 14 - Other: See Comments Comments: CHEST PAIN AND INCREASED BLOOD PRESSURE PENICILLINS 10/07/2014 8 - GI Upset Comments: Severe diarrhea TAPE (ADHESIVE TAPE (ROSINS)) 01/21/2014 14 - Other: See Comments Comments: blisters Date Reviewed: 03/22/2023 Reviewed by: Bekah Fox MA - Fully Assessed Primary Visit Diagnosis:Multiple thyroid nodules [E04.2] Order(s):ENDO THYROID/LYMPH NODE FNA [[id number]] Order #: [id number] Prescriptions as of 11/24/2023 - ibuprofen (MOTRIN) 600 mg tablet Take 1 tablet by mouth every 6 hours as needed for Pain. Take with food. - gabapentin (NEURONTIN) 100 mg capsule Take 1 capsule by mouth once daily. - nebivolol (BYSTOLIC) 5 mg tablet Take 5 mg by mouth once daily. Problem List As Of Date 07/15/2023 Noted Resolved Female stress incontinence [N39.3] 11/25/2014 Multiple thyroid nodules [E04.2] 12/24/2015 Endometrial polyp [N84.0] 06/13/2017 Intramural and submucous leiomyoma of uterus [D*08/01/2017 Submucous leiomyoma of uterus [D25.0] 08/01/2017 Left ear pain [H92.02] 02/07/2018 Autonomic dysfunction [G90.9] 04/17/2018 POTS (postural orthostatic tachycardia syndrome*04/17/2018 Atypical glandular cells of undetermined signif*05/30/2018 Encounter Status:Closed by MATTHEW HALL on 07/15/23 [facility] 07-14-2023 CNPN Telephone (ENDOLN) IRIS THOMASON ([id number]) 1965 F Date Time Provider Department 07/14/23 MATTHEW HALL During your visit today, we recorded the following information about you: Tricia Arrington, RN 07/14/2023 4:15 PM Signed Pt calls Pts pcp had labs done and asking for fax # Caller was provided [phone] Please await fax with lab results Bekah Fox MA 07/18/2023 11:57 AM Signed Fax received and placed on Dr Shah's desk. Allergies As of Date: 07/14/2023 Noted Allergy Reaction CONTRAST DYE 01/21/2014 14 - Other: See Comments Comments: chest pain , increased HR, increased BP AZITHROMYCIN 10/07/2014 8 - GI Upset Comments: Severe diarrhea CEPHALOSPORINS 12/25/2003 16 - Unknown FLAGYL (METRONIDAZOLE HCL) 10/21/2014 6 - Diarrhea Comments: Had diarrhea and dizziness and funny feeling in head and arms MORPHINE 03/11/2014 14 - Other: See Comments Comments: CHEST PAIN AND INCREASED BLOOD PRESSURE PENICILLINS 10/07/2014 8 - GI Upset Comments: Severe diarrhea TAPE (ADHESIVE TAPE (ROSINS)) 01/21/2014 14 - Other: See Comments Comments: blisters Date Reviewed: 03/22/2023 Reviewed by: Bekah Fox MA - Fully Assessed Reason for Visit: fax # [Other] Prescriptions as of 07/18/2023 - ibuprofen (MOTRIN) 600 mg tablet Take 1 tablet by mouth every 6 hours as needed for Pain. Take with food. - esomeprazole magnesium (NEXIUM ORAL) Take 1 tablet by mouth as needed. - gabapentin (NEURONTIN) 100 mg capsule Take 1 capsule by mouth once daily. - ferrous sulfate 325 mg (65 mg iron) tablet Take 1 tablet by mouth once daily. - nebivolol (BYSTOLIC) 5 mg tablet Take 5 mg by mouth once daily. Problem List As Of Date 07/14/2023 Noted Resolved Female stress incontinence [N39.3] 11/25/2014 Multiple thyroid nodules [E04.2] 12/24/2015 Endometrial polyp [N84.0] 06/13/2017 Intramural and submucous leiomyoma of uterus [D*08/01/2017 Submucous leiomyoma of uterus [D25.0] 08/01/2017 Left ear pain [H92.02] 02/07/2018 Autonomic dysfunction [G90.9] 04/17/2018 POTS (postural orthostatic tachycardia syndrome*04/17/2018 Atypical glandular cells of undetermined signif*05/30/2018 Encounter Status:Closed by BEKAH FOX on 07/18/23 Normal [facility] A1C with Estimated Average G bridget 06-23-2023 Glucose [Mass/Vol] 105 mg/dL Normal [facility] Comment on above: Order Comment: Reaso n for Exam Hyperglycemia Result Comment: PERF ORMED BY: [facility] [address] [place] [address] PATHOLOGIST HOTEL BREAKFAST ATTENDANT LUCRETIA SHANKAR M.D. Performed By: #### F ER, FE and TIBC, LIPID, CMP, FRANCISCA, A1C WTH eA, CBC, [id number], TSH3, MG, T4F ####[facility] [id number]#### THY AB ####[facility] , Alanine aminotransferase [En zymatic activity/volume] in Serum or PlasmaOrdered By: Gautam Dill on 06-23-2023 ALT [Catalytic activity/Vol] 20 U/L Normal 7-52 [facility] Comment on above: Order Comment: Reaso n for Exam Hyperlipidemia Reason for Exam Heart palpitations;Chest pain;Hyperlipidemia;Microcytic anem Reason for Exam Microcytic anemia Reason for Exam History of thyroid nodule Reason for Exam History of thyroid nodule;Hyperlipidemia Reason for Exam Heart palpitations;Autonomic dysfunction Reason for Exam Vitamin D deficiency Performed By: #### F ER, FE and TIBC, LIPID, CMP, FRANCISCA, A1C WTH eA, CBC, [id number], TSH3, MG, T4F ####[facility] [id number] [place] [id number] [facility]#### THY AB ####[facility] , Albumin [Mass/volume] in Ser um or Plasma by Bromocresol green (BCG) dye binding methoOrdered By: Gautam Dill on 06-23-2023 Albumin BCG dye [Mass/Vol] 4.4 g/dL 3.5-5.7 [facility] Alkaline phosphatase [Enzyma tic activity/volume] in Serum or PlasmaOrdered By: Gautam Aniyah on 06-23-2023 ALP [Catalytic activity/Vol] 87 U/L Normal 34-104 [facility] Comment on above: Order Comment: Reaso n for Exam Hyperlipidemia Reason for Exam Heart palpitations;Chest pain;Hyperlipidemia;Microcytic anem Reason for Exam Microcytic anemia Reason for Exam History of thyroid nodule Reason for Exam History of thyroid nodule;Hyperlipidemia Reason for Exam Heart palpitations;Autonomic dysfunction Reason for Exam Vitamin D deficiency Performed By: #### F ER, FE and TIBC, LIPID, CMP, FRANCISCA, A1C WTH eA, CBC, [id number], TSH3, MG, T4F ####[address] [place] [place] [address] [facility]#### THY AB ####[facility] , Aspartate aminotransferase [ Enzymatic activity/volume] in Serum or PlasmaOrdered By: Gautam Dill on 06-23-2023 AST [Catalytic activity/Vol] 18 U/L Normal 13-39 [facility] Comment on above: Order Comment: Reaso n for Exam Hyperlipidemia Reason for Exam Heart palpitations;Chest pain;Hyperlipidemia;Microcytic anem Reason for Exam Microcytic anemia Reason for Exam History of thyroid nodule Reason for Exam History of thyroid nodule;Hyperlipidemia Reason for Exam Heart palpitations;Autonomic dysfunction Reason for Exam Vitamin D deficiency Performed By: #### F ER, FE and TIBC, LIPID, CMP, FRANCISCA, A1C WTH eA, CBC, [id number], TSH3, MG, T4F ####[address] [place] [address] [place]#### THY AB ####[facility] , Automated basophil %Ordered By: Gautam Dill on 06-23-2023 Basophils/100 WBC (Bld) 0.9 % Normal . [facility] Comment on above: Order Comment: Reaso n for Exam Hyperlipidemia Performed By: #### F ER, FE and TIBC, LIPID, CMP, FRANCISCA, A1C WTH eA, CBC, [id number], TSH3, MG, T4F ####[place] [address] [address]#### THY AB ####[facility] , Automated basophil countOrde red By: Gautam Aniyah on 06-23-2023 Basophils (Bld) [#/Vol] 0.0 10*3/uL Normal 0.0-0.2 [facility] Comment on above: Order Comment: Reaso n for Exam Hyperlipidemia Result Comment: PERF ORMED BY: [facility] [address] [place] [address] PATHOLOGIST HOTEL BREAKFAST ATTENDANT LUCRETIA SHANKAR M.D. Performed By: #### F ER, FE and TIBC, LIPID, CMP, FRANCISCA, A1C WTH eA, CBC, [id number], TSH3, MG, T4F ####[address]#### THY AB ####[facility] , Automated blood monocyte cou ntOrdered By: Gautam Dill on 06-23-2023 Monocytes (Bld) [#/Vol] 0.3 10*3/uL Normal 0.0-0.8 [facility] Comment on above: Order Comment: Reaso n for Exam Hyperlipidemia Performed By: #### F ER, FE and TIBC, LIPID, CMP, FRANCISCA, A1C WTH eA, CBC, [id number], TSH3, MG, T4F ####[address]#### THY AB ####[facility] , Automated eosinophil %Ordere d By: Gautam Dill on 06-23-2023 Eosinophils/100 WBC (Bld) 3.5 % Normal . [facility] Comment on above: Order Comment: Reaso n for Exam Hyperlipidemia Performed By: #### F ER, FE and TIBC, LIPID, CMP, FRANCISCA, A1C WTH eA, CBC, [id number], TSH3, MG, T4F ####[address]#### THY AB ####[facility] , Automated eosinophil countOr dered By: Gautam Dill on 06-23-2023 Eosinophils (Bld) [#/Vol] 0.2 10*3/uL Normal 0.0-0.45 [facility] Comment on above: Order Comment: Reaso n for Exam Hyperlipidemia Performed By: #### F ER, FE and TIBC, LIPID, CMP, FRANCISCA, A1C WTH eA, CBC, [id number], TSH3, MG, T4F ####[place] [address] [address]#### THY AB ####[facility] , Automated monocyte %Ordered By: Gautam Dill on 06-23-2023 Monocytes/100 WBC (Bld) 5.9 % Normal . [facility] Comment on above: Order Comment: Reaso n for Exam Hyperlipidemia Performed By: #### F ER, FE and TIBC, LIPID, CMP, FRANCISCA, A1C WTH eA, CBC, [id number], TSH3, MG, T4F ####[address]#### THY AB ####[facility] , Automated neutrophil %Ordere d By: Gautam Dill on 06-23-2023 Neutrophils/100 WBC (Bld) 48.4 % Normal . [facility] Comment on above: Order Comment: Reaso n for Exam Hyperlipidemia Performed By: #### F ER, FE and TIBC, LIPID, CMP, FRANCISCA, A1C WTH eA, CBC, [id number], TSH3, MG, T4F ####[place] [address] [place]#### THY AB ####[facility] , Bilirubin.total [Mass/volume ] in Serum or PlasmaOrdered By: Gautam Dill on 06-23-2023 Bilirubin [Mass/Vol] 0.5 mg/dL Normal 0.3-1.0 [facility] Comment on above: Order Comment: Reaso n for Exam Hyperlipidemia Reason for Exam Heart palpitations;Chest pain;Hyperlipidemia;Microcytic anem Reason for Exam Microcytic anemia Reason for Exam History of thyroid nodule Reason for Exam History of thyroid nodule;Hyperlipidemia Reason for Exam Heart palpitations;Autonomic dysfunction Reason for Exam Vitamin D deficiency Performed By: #### F ER, FE and TIBC, LIPID, CMP, FRANCISCA, A1C WTH eA, CBC, [id number], TSH3, MG, T4F ####[place] [address] [address]#### THY AB ####[facility] , Calcium [Mass/volume] in Ser um or PlasmaOrdered By: Gautam Dill on 06-23-2023 Calcium [Mass/Vol] 9.4 mg/dL Normal 8.6-10.3 [facility] Comment on above: Order Comment: Reaso n for Exam Hyperlipidemia Reason for Exam Heart palpitations;Chest pain;Hyperlipidemia;Microcytic anem Reason for Exam Microcytic anemia Reason for Exam History of thyroid nodule Reason for Exam History of thyroid nodule;Hyperlipidemia Reason for Exam Heart palpitations;Autonomic dysfunction Reason for Exam Vitamin D deficiency Performed By: #### F ER, FE and TIBC, LIPID, CMP, FRANCISCA, A1C WTH eA, CBC, [id number], TSH3, MG, T4F ####[place] [address]#### THY AB ####[facility] , Carbon dioxide, total [Moles /volume] in Serum or PlasmaOrdered By: Gautam Dill on 06-23-2023 CO2 [Moles/Vol] 29.8 mmol/L Normal 21.0-31.0 [facility] Comment on above: Order Comment: Reaso n for Exam Hyperlipidemia Reason for Exam Heart palpitations;Chest pain;Hyperlipidemia;Microcytic anem Reason for Exam Microcytic anemia Reason for Exam History of thyroid nodule Reason for Exam History of thyroid nodule;Hyperlipidemia Reason for Exam Heart palpitations;Autonomic dysfunction Reason for Exam Vitamin D deficiency Performed By: #### F ER, FE and TIBC, LIPID, CMP, FRANCISCA, A1C WTH eA, CBC, [id number], TSH3, MG, T4F ####[place] [address] [place] [id number] [facility]#### THY AB ####[facility] , Chloride [Moles/volume] in S bonita or PlasmaOrdered By: Gautam Dill on 06-23-2023 Chloride [Moles/Vol] 108 mmol/L High 98-107 [facility] Comment on above: Order Comment: Reaso n for Exam Hyperlipidemia Reason for Exam Heart palpitations;Chest pain;Hyperlipidemia;Microcytic anem Reason for Exam Microcytic anemia Reason for Exam History of thyroid nodule Reason for Exam History of thyroid nodule;Hyperlipidemia Reason for Exam Heart palpitations;Autonomic dysfunction Reason for Exam Vitamin D deficiency Performed By: #### F ER, FE and TIBC, LIPID, CMP, FRANCISCA, A1C WTH eA, CBC, [id number], TSH3, MG, T4F ####[place] [id number] [facility]#### THY AB ####[facility] , Cholesterol [Mass/volume] in Serum or PlasmaOrdered By: Gautam Dill on 06-23-2023 Cholesterol [Mass/Vol] 230 mg/dL High 140-200 [facility] Comment on above: Chol less than 200 m g/dl low riskChol 201-239 mg/dl borderline riskChol 240 mg/dl and greater high risk Order Comment: Reaso n for Exam Hyperlipidemia Reason for Exam Heart palpitations;Chest pain;Hyperlipidemia;Microcytic anem Reason for Exam Microcytic anemia Reason for Exam History of thyroid nodule Reason for Exam History of thyroid nodule;Hyperlipidemia Reason for Exam Heart palpitations;Autonomic dysfunction Reason for Exam Vitamin D deficiency Result Comment: Chol less than 200 mg/dl low risk Chol 201-239 mg/dl borderline risk Chol 240 mg/dl and greater high risk Performed By: #### F ER, FE and TIBC, LIPID, CMP, FRANCISCA, A1C WTH eA, CBC, [id number], TSH3, MG, T4F ####[place] [id number] [facility]#### THY AB ####[facility] , Cholesterol in LDL Calc [Mas s/Vol]Ordered By: Gautam Dill on 06-23-2023 Cholesterol in LDL [Mass/Vol] 128 mg/dL 0-100 [facility] Comment on above: LDL ATP III CLASSIFI CATIONLDL less than 100 mg/dL OptimalLDL 100-129 mg/dL Near or above optimalLDL 130-159 mg/dL Borderline highLDL 160-189 mg/dL HighLDL greater than 189 mg/dL Very high Cholesterol in VLDL Calc [Ma ss/Vol]Ordered By: Gautam Dill on 06-23-2023 Cholesterol in VLDL [Mass/Vol] 22 mg/dL [facility] Complete Blood Count Auto Di ffon 06-23-2023 Mean Corpuscular HGB Conc 33.1 g/dL Normal 32.0-35.0 [facility] Comment on above: Order Comment: Reaso n for Exam Hyperlipidemia Performed By: #### F ER, FE and TIBC, LIPID, CMP, FRANCISCA, A1C WTH eA, CBC, [id number], TSH3, MG, T4F ####[facility]#### THY AB ####[facility] , NRBC% 0.1 /100{WBC} Normal 0-0.5 [facility] Comment on above: Order Comment: Reaso n for Exam Hyperlipidemia Performed By: #### F ER, FE and TIBC, LIPID, CMP, FRANCISCA, A1C WTH eA, CBC, [id number], TSH3, MG, T4F ####[facility]#### THY AB ####[facility] , Comprehensive Metabolic Pane vinny 06-23-2023 Albumin [Mass/Vol] 4.4 g/dL Normal 3.5-5.7 [facility] Comment on above: Order Comment: Reaso n for Exam Hyperlipidemia Reason for Exam Heart palpitations;Chest pain;Hyperlipidemia;Microcytic anem Reason for Exam Microcytic anemia Reason for Exam History of thyroid nodule Reason for Exam History of thyroid nodule;Hyperlipidemia Reason for Exam Heart palpitations;Autonomic dysfunction Reason for Exam Vitamin D deficiency Performed By: #### F ER, FE and TIBC, LIPID, CMP, FRANCISCA, A1C WTH eA, CBC, [id number], TSH3, MG, T4F ####[place] [address] [address]#### THY AB ####[facility] , GFR/1.73 sq M.predicted MDRD (S/P/Bld) [Vol rate/Area] mL/min/{1.73_m2} Normal [facility] Comment on above: Order Comment: Reaso n for Exam Hyperlipidemia Reason for Exam Heart palpitations;Chest pain;Hyperlipidemia;Microcytic anem Reason for Exam Microcytic anemia Reason for Exam History of thyroid nodule Reason for Exam History of thyroid nodule;Hyperlipidemia Reason for Exam Heart palpitations;Autonomic dysfunction Reason for Exam Vitamin D deficiency Performed By: #### F ER, FE and TIBC, LIPID, CMP, FRANCISCA, A1C WTH eA, CBC, [id number], TSH3, MG, T4F ####[address]#### THY AB ####[facility] , Cortisolon 06-23-2023 Cortisol 13.8 ug/dL Normal [facility] Comment on above: Order Comment: Reaso n for Exam Hyperlipidemia Reason for Exam Heart palpitations;Chest pain;Hyperlipidemia;Microcytic anem Reason for Exam Microcytic anemia Reason for Exam History of thyroid nodule Reason for Exam History of thyroid nodule;Hyperlipidemia Reason for Exam Heart palpitations;Autonomic dysfunction Reason for Exam Vitamin D deficiency Result Comment: Refe rence range: AM 6 - 24 ug/dl PM <10 ug/dl [facility] professor of practice and method: [employer] DXI, POLYCLONAL ANTIBODY CORTISOL ASSAY. Performed By: #### F ER, FE and TIBC, LIPID, CMP, FRANCISCA, A1C WTH eA, CBC, [id number], TSH3, MG, T4F ####[place] [address] [address]#### THY AB ####[facility] , Creatinine [Mass/volume] in Serum or PlasmaOrdered By: Gautam Dill on 06-23-2023 Creatinine [Mass/Vol] 0.89 mg/dL Normal 0.60-1.20 [facility] Comment on above: Order Comment: Reaso n for Exam Hyperlipidemia Reason for Exam Heart palpitations;Chest pain;Hyperlipidemia;Microcytic anem Reason for Exam Microcytic anemia Reason for Exam History of thyroid nodule Reason for Exam History of thyroid nodule;Hyperlipidemia Reason for Exam Heart palpitations;Autonomic dysfunction Reason for Exam Vitamin D deficiency Performed By: #### F ER, FE and TIBC, LIPID, CMP, FRANCISCA, A1C WTH eA, CBC, [id number], TSH3, MG, T4F ####[address]#### THY AB ####[facility] , Erythrocyte distribution wid th [Ratio] by Automated countOrdered By: Gautam Dill on 06-23-2023 Erythrocyte distribution width (RBC) [Ratio] 14.3 % Normal 11.9-15.3 [facility] Comment on above: Order Comment: Reaso n for Exam Hyperlipidemia Performed By: #### F ER, FE and TIBC, LIPID, CMP, FRANCISCA, A1C WTH eA, CBC, [id number], TSH3, MG, T4F ####[address]#### THY AB ####[facility] , Erythrocytes [#/volume] in B lood by Automated countOrdered By: Gautam Dill on 06-23-2023 RBC (Bld) [#/Vol] 4.93 10*6/uL Normal 3.60-5.00 [facility] Comment on above: Order Comment: Reaso n for Exam Hyperlipidemia Performed By: #### F ER, FE and TIBC, LIPID, CMP, FRANCISCA, A1C WTH eA, CBC, [id number], TSH3, MG, T4F ####[address]#### THY AB ####[facility] , Ferritin [Mass/volume] in Se rum or PlasmaOrdered By: Gautam Dill on 06-23-2023 Ferritin [Mass/Vol] 38.9 ng/mL Normal 11.0-306.8 [facility] Comment on above: Order Comment: Reaso n for Exam Hyperlipidemia Reason for Exam Heart palpitations;Chest pain;Hyperlipidemia;Microcytic anem Reason for Exam Microcytic anemia Reason for Exam History of thyroid nodule Reason for Exam History of thyroid nodule;Hyperlipidemia Reason for Exam Heart palpitations;Autonomic dysfunction Reason for Exam Vitamin D deficiency Performed By: #### F ER, FE and TIBC, LIPID, CMP, FRANCISCA, A1C WTH eA, CBC, [id number], TSH3, MG, T4F ####[facility] [id number] [place] [address] [place]#### THY AB ####[facility] , Glucose [Mass/volume] in Ser um or PlasmaOrdered By: Gautam Dill on 06-23-2023 Glucose [Mass/Vol] 100 mg/dL Normal 70-100 [facility] Comment on above: ADA recommended refe rence rangeRandom Glucose Reference Range is dependent on time and content of last meal. Glucose of more than 200 mg/dL in a nonstressed, ambulatory subject supports the diagnosis of Diabetes Mellitus. Order Comment: Reaso n for Exam Hyperlipidemia Reason for Exam Heart palpitations;Chest pain;Hyperlipidemia;Microcytic anem Reason for Exam Microcytic anemia Reason for Exam History of thyroid nodule Reason for Exam History of thyroid nodule;Hyperlipidemia Reason for Exam Heart palpitations;Autonomic dysfunction Reason for Exam Vitamin D deficiency Result Comment: [place] om Glucose Reference Range is dependent on time and content of last meal. Glucose of more than 200 mg/dL in a nonstressed, ambulatory subject supports the diagnosis of Diabetes Mellitus. ADA recommended reference range Performed By: #### F ER, FE and TIBC, LIPID, CMP, FRANCISCA, A1C WTH eA, CBC, [id number], TSH3, MG, T4F ####[facility] [id number] [place] [id number] [place]#### THY AB ####[facility] , Glucose mean value [Mass/vol ume] in Blood Estimated from glycated hemoglobinOrdered By: Gautam Dill on 06-23-2023 Average glucose Estimated from glycated hemoglobin (Bld) [Mass/Vol] 105 mg/dL [facility] Hematocrit [Volume Fraction] of Blood by Automated countOrdered By: Gautam Aniyah on 06-23-2023 Hematocrit (Bld) [Volume fraction] 44.7 % Normal 34.0-46.4 [facility] Comment on above: Order Comment: Reaso n for Exam Hyperlipidemia Performed By: #### F ER, FE and TIBC, LIPID, CMP, FRANCISCA, A1C WTH eA, CBC, [id number], TSH3, MG, T4F ####[address]#### THY AB ####[facility] , Hemoglobin A1c percentageOrd ered By: Gautam Dill on 06-23-2023 HbA1c (Bld) [Mass fraction] 5.3 % Normal 4.3-5.6 [facility] Comment on above: Increased risk for d iabetes: 5.7 - 6.4diabetes: >6.4glycemic control for adults with diabetes: <7.0 Order Comment: Reaso n for Exam Hyperglycemia Result Comment: Incr eased risk for diabetes: 5.7 - 6.4 diabetes: >6.4 glycemic control for adults with diabetes: <7.0 Performed By: #### F ER, FE and TIBC, LIPID, CMP, FRANCISCA, A1C WTH eA, CBC, [id number], TSH3, MG, T4F ####[address]#### THY AB ####[facility] , Hemoglobin [Mass/volume] in BloodOrdered By: Gautam Dill on 06-23-2023 Hemoglobin (Bld) [Mass/Vol] 14.8 g/dL Normal 11.8-15.4 [facility] Comment on above: Order Comment: Reaso n for Exam Hyperlipidemia Performed By: #### F ER, FE and TIBC, LIPID, CMP, FRANCISCA, A1C WTH eA, CBC, [id number], TSH3, MG, T4F ####[place] [address] [place]#### THY AB ####[facility] , Iron [Mass/volume] in Serum or PlasmaOrdered By: Gautam Dill on 06-23-2023 Iron [Mass/Vol] 123 ug/dL Normal 50-212 [facility] Comment on above: Order Comment: Reaso n for Exam Hyperlipidemia Reason for Exam Heart palpitations;Chest pain;Hyperlipidemia;Microcytic anem Reason for Exam Microcytic anemia Reason for Exam History of thyroid nodule Reason for Exam History of thyroid nodule;Hyperlipidemia Reason for Exam Heart palpitations;Autonomic dysfunction Reason for Exam Vitamin D deficiency Performed By: #### F ER, FE and TIBC, LIPID, CMP, FRANCISCA, A1C WTH eA, CBC, [id number], TSH3, MG, T4F ####[facility] [id number] [place] [address] [facility]#### THY AB ####[facility] , Iron and TIBC Profileon 06-09 % Iron Saturation 34.6 % Normal 20-50 The [facility] Comment on above: Order Comment: Reaso n for Exam Hyperlipidemia Reason for Exam Heart palpitations;Chest pain;Hyperlipidemia;Microcytic anem Reason for Exam Microcytic anemia Reason for Exam History of thyroid nodule Reason for Exam History of thyroid nodule;Hyperlipidemia Reason for Exam Heart palpitations;Autonomic dysfunction Reason for Exam Vitamin D deficiency Performed By: #### F ER, FE and TIBC, LIPID, CMP, FRANCISCA, A1C WTH eA, CBC, [id number], TSH3, MG, T4F ####[facility] [place] [id number] [place]#### THY AB ####[facility] , Total Iron Binding Capacity 356 ug/dL Normal 255-450 [facility] Comment on above: Order Comment: Reaso n for Exam Hyperlipidemia Reason for Exam Heart palpitations;Chest pain;Hyperlipidemia;Microcytic anem Reason for Exam Microcytic anemia Reason for Exam History of thyroid nodule Reason for Exam History of thyroid nodule;Hyperlipidemia Reason for Exam Heart palpitations;Autonomic dysfunction Reason for Exam Vitamin D deficiency Performed By: #### F ER, FE and TIBC, LIPID, CMP, FRANCISCA, A1C WTH eA, CBC, [id number], TSH3, MG, T4F ####[facility] [id number] [place] [address] [facility]#### THY AB ####[facility] , Iron binding capacity [Mass/ volume] in Serum or PlasmaOrdered By: Gautam Dill on 06-23-2023 Iron binding capacity [Mass/Vol] 356 ug/dL 255-450 [facility] Iron saturation [Mass Fracti on] in Serum or PlasmaOrdered By: Gautam Dill on 06-23-2023 Iron saturation [Mass fraction] 34.6 % 20-50 [facility] Leukocytes [#/volume] correc daron for nucleated erythrocytes in Blood by Automated counOrdered By: Gautam Dill on 06-23-2023 WBC corrected for nucl RBC Auto (Bld) [#/Vol] 4.8 10*3/uL 3.8-11.6 [facility] Leukocytes [#/volume] in Blo od by Automated countOrdered By: Gautam Dill on 06-23-2023 WBC (Bld) [#/Vol] 4.8 10*3/uL Normal 3.8-11.6 [facility] Comment on above: Order Comment: Reaso n for Exam Hyperlipidemia Performed By: #### F ER, FE and TIBC, LIPID, CMP, FRANCISCA, A1C WTH eA, CBC, [id number], TSH3, MG, T4F ####[facility] [place] [address] [facility]#### THY AB ####[facility] , Lipid Panelon 06-23-2023 LDL Cholesterol,Calculated 128 mg/dL High 0-100 [facility] Comment on above: Order Comment: Reaso n for Exam Hyperlipidemia Reason for Exam Heart palpitations;Chest pain;Hyperlipidemia;Microcytic anem Reason for Exam Microcytic anemia Reason for Exam History of thyroid nodule Reason for Exam History of thyroid nodule;Hyperlipidemia Reason for Exam Heart palpitations;Autonomic dysfunction Reason for Exam Vitamin D deficiency Result Comment: LDL ATP III CLASSIFICATION LDL less than 100 mg/dL Optimal LDL 100-129 mg/dL Near or above optimal LDL 130-159 mg/dL Borderline high LDL 160-189 mg/dL High LDL greater than 189 mg/dL Very high Performed By: #### F ER, FE and TIBC, LIPID, CMP, FRANCISCA, A1C WTH eA, CBC, [id number], TSH3, MG, T4F ####[place] [address] [address]#### THY AB ####[facility] , Triglyceride w/Reflex 111 mg/dL Normal 0-149 [facility] Comment on above: Order Comment: Reaso n for Exam Hyperlipidemia Reason for Exam Heart palpitations;Chest pain;Hyperlipidemia;Microcytic anem Reason for Exam Microcytic anemia Reason for Exam History of thyroid nodule Reason for Exam History of thyroid nodule;Hyperlipidemia Reason for Exam Heart palpitations;Autonomic dysfunction Reason for Exam Vitamin D deficiency Result Comment: TRIG ATP III CLASSIFICATION TRIG less than 150 mg/dL Normal TRIG 150-199 mg/dL Borderline high TRIG 200-500 mg/dL High TRIG greater than 500 mg/dL Very high Standard traceable to the Center for Disease Conrtrol and Prevention (CDC) test method. Performed By: #### F ER, FE and TIBC, LIPID, CMP, FRANCISCA, A1C WTH eA, CBC, [id number], TSH3, MG, T4F ####[address]#### THY AB ####[facility] , VLDL CHOLESTEROL 22 mg/dL Normal [facility] Comment on above: Order Comment: Reaso n for Exam Hyperlipidemia Reason for Exam Heart palpitations;Chest pain;Hyperlipidemia;Microcytic anem Reason for Exam Microcytic anemia Reason for Exam History of thyroid nodule Reason for Exam History of thyroid nodule;Hyperlipidemia Reason for Exam Heart palpitations;Autonomic dysfunction Reason for Exam Vitamin D deficiency Performed By: #### F ER, FE and TIBC, LIPID, CMP, FRANCISCA, A1C WTH eA, CBC, [id number], TSH3, MG, T4F ####[address]#### THY AB ####[facility] , Lymphocytes [#/volume] in Bl ood by Automated countOrdered By: Gautam Dill on 06-23-2023 Lymphocytes (Bld) [#/Vol] 2.0 10*3/uL Normal 1.00-4.8 [facility] Comment on above: Order Comment: Reaso n for Exam Hyperlipidemia Performed By: #### F ER, FE and TIBC, LIPID, CMP, FRANCISCA, A1C WTH eA, CBC, [id number], TSH3, MG, T4F ####[place] [address] [address]#### THY AB ####[facility] , Lymphocytes/100 leukocytes i n Blood by Automated countOrdered By: Gautam Dill on 06-23-2023 Lymphocytes/100 WBC (Bld) 41.3 % Normal . [facility] Comment on above: Order Comment: Reaso n for Exam Hyperlipidemia Performed By: #### F ER, FE and TIBC, LIPID, CMP, FRANCISCA, A1C WTH eA, CBC, [id number], TSH3, MG, T4F ####[address]#### THY AB ####[facility] , MCH [Entitic mass] by Automa daron countOrdered By: Gautam Dill on 06-23-2023 MCH (RBC) [Entitic mass] 30.0 pg Normal 24.7-34.3 [facility] Comment on above: Order Comment: Reaso n for Exam Hyperlipidemia Performed By: #### F ER, FE and TIBC, LIPID, CMP, FRANCISCA, A1C WTH eA, CBC, [id number], TSH3, MG, T4F ####[address]#### THY AB ####[facility] , MCHC Auto (RBC) [Mass/Vol]Or dered By: Gautam Dill on 06-23-2023 MCHC (RBC) [Mass/Vol] 33.1 g/dL 32.0-35.0 [facility] MCV [Entitic volume] by Auto mated countOrdered By: Gautam Dill on 06-23-2023 MCV (RBC) [Entitic vol] 90.8 fL Normal 80-100 [facility] Comment on above: Order Comment: Reaso n for Exam Hyperlipidemia Performed By: #### F ER, FE and TIBC, LIPID, CMP, FRANCISCA, A1C WTH eA, CBC, [id number], TSH3, MG, T4F ####[address]#### THY AB ####[facility] , Magnesium [Mass/volume] in S bonita or PlasmaOrdered By: Gautam Dill on 06-23-2023 Magnesium [Mass/Vol] 2.0 mg/dL Normal 1.9-2.7 [facility] Comment on above: Order Comment: Reaso n for Exam Hyperlipidemia Reason for Exam Heart palpitations;Chest pain;Hyperlipidemia;Microcytic anem Reason for Exam Microcytic anemia Reason for Exam History of thyroid nodule Reason for Exam History of thyroid nodule;Hyperlipidemia Reason for Exam Heart palpitations;Autonomic dysfunction Reason for Exam Vitamin D deficiency Performed By: #### F ER, FE and TIBC, LIPID, CMP, FRANCISCA, A1C WTH eA, CBC, [id number], TSH3, MG, T4F ####[address]#### THY AB ####[facility] , Neutrophils [#/volume] in Bl ood by Automated countOrdered By: Gautam Dill on 06-23-2023 Neutrophils (Bld) [#/Vol] 2.3 10*3/uL Normal 1.8-7.7 [facility] Comment on above: Order Comment: Reaso n for Exam Hyperlipidemia Performed By: #### F ER, FE and TIBC, LIPID, CMP, FRANCISCA, A1C WTH eA, CBC, [id number], TSH3, MG, T4F ####[address]#### THY AB ####[facility] , No Panel InformationOrdered By: Gautam Dill on 06-23-2023 Estimated GFR (CKD-EPI) > 60.0 mL/Min [facility] Creatinine Clearance (Chem N/A [facility] Nucleated erythrocytes [Pres ence] in Blood by Automated countOrdered By: Gautam Dill on 06-23-2023 Nucleated RBC Auto Ql (Bld) 0.1 /100{WBC} 0-0.5 [facility] Platelet mean volume [Entiti c volume] in Blood by Automated countOrdered By: Gautam Dill on 06-23-2023 Platelet mean volume (Bld) [Entitic vol] 9.2 fL Normal 6.3-10.7 [facility] Comment on above: Order Comment: Reaso n for Exam Hyperlipidemia Performed By: #### F ER, FE and TIBC, LIPID, CMP, FRANCISCA, A1C WTH eA, CBC, [id number], TSH3, MG, T4F ####[facility] [id number]#### THY AB ####[facility] , Platelets [#/volume] in Bloo d by Automated countOrdered By: Gautam Dill on 06-23-2023 Platelets (Bld) [#/Vol] 210 10*3/uL Normal 150-450 [facility] Comment on above: Order Comment: Reaso n for Exam Hyperlipidemia Performed By: #### F ER, FE and TIBC, LIPID, CMP, FRANCISCA, A1C WTH eA, CBC, [id number], TSH3, MG, T4F ####[place] [address] [address]#### THY AB ####[facility] , Potassium [Moles/volume] in Serum or PlasmaOrdered By: Gautam Dill on 06-23-2023 Potassium [Moles/Vol] 4.2 mmol/L Normal 3.5-5.1 [facility] Comment on above: Order Comment: Reaso n for Exam Hyperlipidemia Reason for Exam Heart palpitations;Chest pain;Hyperlipidemia;Microcytic anem Reason for Exam Microcytic anemia Reason for Exam History of thyroid nodule Reason for Exam History of thyroid nodule;Hyperlipidemia Reason for Exam Heart palpitations;Autonomic dysfunction Reason for Exam Vitamin D deficiency Performed By: #### F ER, FE and TIBC, LIPID, CMP, FRANCISCA, A1C WTH eA, CBC, [id number], TSH3, MG, T4F ####[place] [address] [address]#### THY AB ####[facility] , Protein [Mass/volume] in Ser um or PlasmaOrdered By: Gautam Dill on 06-23-2023 Protein [Mass/Vol] 6.4 g/dL Normal 6.4-8.9 [facility] Comment on above: Order Comment: Reaso n for Exam Hyperlipidemia Reason for Exam Heart palpitations;Chest pain;Hyperlipidemia;Microcytic anem Reason for Exam Microcytic anemia Reason for Exam History of thyroid nodule Reason for Exam History of thyroid nodule;Hyperlipidemia Reason for Exam Heart palpitations;Autonomic dysfunction Reason for Exam Vitamin D deficiency Performed By: #### F ER, FE and TIBC, LIPID, CMP, FRANCISCA, A1C WTH eA, CBC, [id number], TSH3, MG, T4F ####[place] [address] [address]#### THY AB ####[facility] , Random cortisol measurementO rdered By: Gautam Dill on 06-23-2023 Cortisol [Mass/Vol] 13.8 ug/dL [facility] Comment on above: [facility] professor of practice and method:[employer], POLYCLONAL ANTIBODY CORTISOL ASSAY.Reference range: AM 6 - 24 ug/dl PM <10 ug/dl Serum globulin measurement b y calculation (mass/volume)Ordered By: Gautam Dill on 06-23-2023 Globulin (S) [Mass/Vol] 2.0 g/dL Normal [facility] Comment on above: Order Comment: Reaso n for Exam Hyperlipidemia Reason for Exam Heart palpitations;Chest pain;Hyperlipidemia;Microcytic anem Reason for Exam Microcytic anemia Reason for Exam History of thyroid nodule Reason for Exam History of thyroid nodule;Hyperlipidemia Reason for Exam Heart palpitations;Autonomic dysfunction Reason for Exam Vitamin D deficiency Performed By: #### F ER, FE and TIBC, LIPID, CMP, FRANCISCA, A1C WTH eA, CBC, [id number], TSH3, MG, T4F ####[facility] [place] [id number] [place]#### THY AB ####[facility] , Serum or plasma albumin/glob ulin mass ratioOrdered By: Gautam Dill on 06-23-2023 Albumin/Globulin [Mass ratio] 2.2 {ratio} Normal [facility] Comment on above: Order Comment: Reaso n for Exam Hyperlipidemia Reason for Exam Heart palpitations;Chest pain;Hyperlipidemia;Microcytic anem Reason for Exam Microcytic anemia Reason for Exam History of thyroid nodule Reason for Exam History of thyroid nodule;Hyperlipidemia Reason for Exam Heart palpitations;Autonomic dysfunction Reason for Exam Vitamin D deficiency Performed By: #### F ER, FE and TIBC, LIPID, CMP, FRANCISCA, A1C WTH eA, CBC, [id number], TSH3, MG, T4F ####[place] [address] [place] [id number] [facility]#### THY AB ####[facility] , Serum or plasma anion gap de terminationOrdered By: Gautam Dill on 06-23-2023 Anion gap [Moles/Vol] 10.4 mmol/L Normal 6.0-15.0 [facility] Comment on above: Order Comment: Reaso n for Exam Hyperlipidemia Reason for Exam Heart palpitations;Chest pain;Hyperlipidemia;Microcytic anem Reason for Exam Microcytic anemia Reason for Exam History of thyroid nodule Reason for Exam History of thyroid nodule;Hyperlipidemia Reason for Exam Heart palpitations;Autonomic dysfunction Reason for Exam Vitamin D deficiency Performed By: #### F ER, FE and TIBC, LIPID, CMP, FRANCISCA, A1C WTH eA, CBC, [id number], TSH3, MG, T4F ####[place] [id number] [facility]#### THY AB ####[facility] , Serum or plasma high density lipoprotein (HDL) cholesterol measurementOrdered By: Gautam Dill on 06-23-2023 Cholesterol in HDL [Mass/Vol] 80 mg/dL Normal 23-92 [facility] Comment on above: HDL CHOL ATP-III CLA SSIFICATION Cardiovascular RiskHDL > or equal to 60 mg/dL LOWHDL < 40 mg/dL HIGH Order Comment: Reaso n for Exam Hyperlipidemia Reason for Exam Heart palpitations;Chest pain;Hyperlipidemia;Microcytic anem Reason for Exam Microcytic anemia Reason for Exam History of thyroid nodule Reason for Exam History of thyroid nodule;Hyperlipidemia Reason for Exam Heart palpitations;Autonomic dysfunction Reason for Exam Vitamin D deficiency Result Comment: HDL CHOL ATP-III CLASSIFICATION Cardiovascular Risk HDL > or equal to 60 mg/dL LOW HDL < 40 mg/dL HIGH Performed By: #### F ER, FE and TIBC, LIPID, CMP, FRANCISCA, A1C WTH eA, CBC, [id number], TSH3, MG, T4F ####[facility]#### THY AB ####[facility] , Serum or plasma total choles terol/high density lipoprotein (HDL) cholesterol mass ratOrdered By: Gautam Dill on 06-23-2023 Cholesterol.total/Dorinda sterol in HDL [Mass ratio] 2.9 {ratio} Normal <5.0 [facility] Comment on above: Order Comment: Reaso n for Exam Hyperlipidemia Reason for Exam Heart palpitations;Chest pain;Hyperlipidemia;Microcytic anem Reason for Exam Microcytic anemia Reason for Exam History of thyroid nodule Reason for Exam History of thyroid nodule;Hyperlipidemia Reason for Exam Heart palpitations;Autonomic dysfunction Reason for Exam Vitamin D deficiency Performed By: #### F ER, FE and TIBC, LIPID, CMP, FRANCISCA, A1C WTH eA, CBC, [id number], TSH3, MG, T4F ####[place] [address] [address]#### THY AB ####[facility] , Sodium [Moles/volume] in Ser um or PlasmaOrdered By: Gautam Dill on 06-23-2023 Sodium [Moles/Vol] 144 mmol/L Normal 136-145 [facility] Comment on above: Order Comment: Reaso n for Exam Hyperlipidemia Reason for Exam Heart palpitations;Chest pain;Hyperlipidemia;Microcytic anem Reason for Exam Microcytic anemia Reason for Exam History of thyroid nodule Reason for Exam History of thyroid nodule;Hyperlipidemia Reason for Exam Heart palpitations;Autonomic dysfunction Reason for Exam Vitamin D deficiency Performed By: #### F ER, FE and TIBC, LIPID, CMP, FRANCISCA, A1C WTH eA, CBC, [id number], TSH3, MG, T4F ####[address]#### THY AB ####[facility] , Thyroid Antibodies TPO+Tg Ab on 06-23-2023 Antithyroglobulin Ab 157.6 High 0.0-0.9 [facility] Comment on above: Order Comment: Reaso n for Exam History of thyroid nodule Result Comment: Thyr oglobulin Antibody measured by Written Methodology It should be noted that the presence of thyroglobulin antibodies may not be pathogenic nor diagnostic, especially at very low levels. The assay professor of practice has found that four percent of individuals without evidence of thyroid disease or autoimmunity will have positive TgAb levels up to 4 IU/mL. Performed at: [facility] [employer] [id number] Flight Manager: Anton Zacarias PhD, Phone: [phone] PERFORMED BY: [place] [address] PATHOLOGIST HOTEL BREAKFAST ATTENDANT LUCRETIA SHANKAR M.D. Performed By: #### F ER, FE and TIBC, LIPID, CMP, FRANCISCA, A1C WTH eA, CBC, [id number], TSH3, MG, T4F ####[address]#### THY AB ####[facility] , Thyroid Peroxidase Antibodies 91 High 0-34 [facility] Comment on above: Order Comment: Reaso n for Exam History of thyroid nodule Performed By: #### F ER, FE and TIBC, LIPID, CMP, FRANCISCA, A1C WTH eA, CBC, [id number], TSH3, MG, T4F ####[address]#### THY AB ####[facility] , Thyrotropin [Units/volume] i n Serum or PlasmaOrdered By: Gautam Dill on 06-23-2023 TSH Qn 1.81 m[IU]/L Normal 0.45-5.33 [facility] Comment on above: Order Comment: Reaso n for Exam Hyperlipidemia Reason for Exam Heart palpitations;Chest pain;Hyperlipidemia;Microcytic anem Reason for Exam Microcytic anemia Reason for Exam History of thyroid nodule Reason for Exam History of thyroid nodule;Hyperlipidemia Reason for Exam Heart palpitations;Autonomic dysfunction Reason for Exam Vitamin D deficiency Performed By: #### F ER, FE and TIBC, LIPID, CMP, FRANCISCA, A1C WTH eA, CBC, [id number], TSH3, MG, T4F ####[facility] [id number] [address]#### THY AB ####[facility] , Thyroxine (T4) free [Mass/vo lume] in Serum or PlasmaOrdered By: Gautam Dill on 06-23-2023 Free T4 [Mass/Vol] 0.82 ng/dL Normal 0.61-1.12 [facility] Comment on above: Order Comment: Reaso n for Exam Hyperlipidemia Reason for Exam Heart palpitations;Chest pain;Hyperlipidemia;Microcytic anem Reason for Exam Microcytic anemia Reason for Exam History of thyroid nodule Reason for Exam History of thyroid nodule;Hyperlipidemia Reason for Exam Heart palpitations;Autonomic dysfunction Reason for Exam Vitamin D deficiency Performed By: #### F ER, FE and TIBC, LIPID, CMP, FRANCISCA, A1C WTH eA, CBC, [id number], TSH3, MG, T4F ####[facility] [id number] [place] [address] [place]#### THY AB ####[facility] , Transferrin [Mass/volume] in Serum or PlasmaOrdered By: Gautam Dill on 06-23-2023 Transferrin [Mass/Vol] 254 mg/dL Normal 203-362 [facility] Comment on above: Order Comment: Reaso n for Exam Hyperlipidemia Reason for Exam Heart palpitations;Chest pain;Hyperlipidemia;Microcytic anem Reason for Exam Microcytic anemia Reason for Exam History of thyroid nodule Reason for Exam History of thyroid nodule;Hyperlipidemia Reason for Exam Heart palpitations;Autonomic dysfunction Reason for Exam Vitamin D deficiency Performed By: #### F ER, FE and TIBC, LIPID, CMP, FRANCISCA, A1C WTH eA, CBC, [id number], TSH3, MG, T4F ####[facility] [id number] [place] [id number] [facility]#### THY AB ####[facility] , Triglyceride [Mass/volume] i n Serum or PlasmaOrdered By: Gautam Dill on 06-23-2023 Triglyceride [Mass/Vol] 111 mg/dL 0-149 [facility] Comment on above: TRIG ATP III CLASSIF ICATIONTRIG less than 150 mg/dL NormalTRIG 150-199 mg/dL Borderline highTRIG 200-500 mg/dL High TRIG greater than 500 mg/dL Very highStandard traceable to the Center for Disease Conrtrol and Prevention (CDC) test method. Urea nitrogen [Mass/volume] in Serum or PlasmaOrdered By: Gautam Dill on 06-23-2023 Urea nitrogen [Mass/Vol] 9 mg/dL Normal 7-25 [facility] Comment on above: Order Comment: Reaso n for Exam Hyperlipidemia Reason for Exam Heart palpitations;Chest pain;Hyperlipidemia;Microcytic anem Reason for Exam Microcytic anemia Reason for Exam History of thyroid nodule Reason for Exam History of thyroid nodule;Hyperlipidemia Reason for Exam Heart palpitations;Autonomic dysfunction Reason for Exam Vitamin D deficiency Performed By: #### F ER, FE and TIBC, LIPID, CMP, FRANCISCA, A1C WTH eA, CBC, [id number], TSH3, MG, T4F ####[facility] [place] [id number] [facility]#### THY AB ####[facility] , Vitamin D 25 Hydroxy Totalon 06-23-2023 Vitamin D 25 Hydroxy Total 21.3 ng/mL Low 30-100 [facility] Comment on above: Order Comment: Reaso n for Exam Hyperlipidemia Reason for Exam Heart palpitations;Chest pain;Hyperlipidemia;Microcytic anem Reason for Exam Microcytic anemia Reason for Exam History of thyroid nodule Reason for Exam History of thyroid nodule;Hyperlipidemia Reason for Exam Heart palpitations;Autonomic dysfunction Reason for Exam Vitamin D deficiency Result Comment: RYLEE MIN D STATUS 25(OH)VITAMIN D RANGE (ng/mL) Deficient <20 Insufficient 20 to <30 Sufficient 30 to 100 Reference: Mason Perez, Susan SPANGLER, et al. Evaluation,treatment, and prevention of vitamin D deficiency; an Endocrine Society clinical practice guideline. JCEM. 2010; 96(7):1911-30. PERFORMED BY: [facility] [address] [place] [address] PATHOLOGIST HOTEL BREAKFAST ATTENDANT LUCRETIA SHANKAR M.D. Performed By: #### F ER, FE and TIBC, LIPID, CMP, FRANCISCA, A1C WTH eA, CBC, [id number], TSH3, MG, T4F ####[facility] [place] [address] [facility]#### THY AB ####[facility] , Vitamin D+Metabolites [Mass/ volume] in Serum or PlasmaOrdered By: Gautam Dill on 06-23-2023 Vitamin D+Metabolites [Mass/Vol] 21.3 ng/mL 30-100 [facility] Comment on above: VITAMIN D STATUS 25( [place])VITAMIN D RANGE (ng/mL) Deficient <20 Insufficient 20 to <30Sufficient 30 to 100Reference: Mason Perez, Susan SPANGLER, et al. Evaluation,treatment, and prevention of vitamin D deficiency; an Endocrine Society clinical practice guideline. JCEM. 2010; 96(7):1911-30. Alanine aminotransferase [En zymatic activity/volume] in Serum or PlasmaOrdered By: Gautam Dill on 12-21-2022 ALT [Catalytic activity/Vol] 15 U/L 7-52 [facility] Albumin [Mass/volume] in Ser um or Plasma by Bromocresol green (BCG) dye binding methoOrdered By: Gautam Dill on 12-21-2022 Albumin BCG dye [Mass/Vol] 4.4 g/dL 3.5-5.7 [facility] Alkaline phosphatase [Enzyma tic activity/volume] in Serum or PlasmaOrdered By: Gautam Dill on 12-21-2022 ALP [Catalytic activity/Vol] 85 U/L 34-104 [facility] Aspartate aminotransferase [ Enzymatic activity/volume] in Serum or PlasmaOrdered By: Gautam Dill on 12-21-2022 AST [Catalytic activity/Vol] 16 U/L 13-39 [facility] Basophils Auto (Bld) [#/Vol] Ordered By: Gautam Dill on 12-21-2022 Basophils (Bld) [#/Vol] 0.0 10*3/uL 0.0-0.2 [facility] Basophils/100 WBC Auto (Bld) Ordered By: Gautam Dill on 12-21-2022 Basophils/100 WBC (Bld) 0.7 % . [facility] Bilirubin.total [Mass/volume ] in Serum or PlasmaOrdered By: Gautam Dill on 12-21-2022 Bilirubin [Mass/Vol] 0.5 mg/dL 0.3-1.0 [facility] Calcium [Mass/volume] in Ser um or PlasmaOrdered By: Gautam Dill on 12-21-2022 Calcium [Mass/Vol] 9.5 mg/dL 8.6-10.3 [facility] Carbon dioxide, total [Moles /volume] in Serum or PlasmaOrdered By: Gautam Dill on 12-21-2022 CO2 [Moles/Vol] 28.2 mmol/L 21.0-31.0 [facility] Chloride [Moles/volume] in S bonita or PlasmaOrdered By: Gautam Dill on 12-21-2022 Chloride [Moles/Vol] 106 mmol/L 98-107 [facility] Cholesterol [Mass/volume] in Serum or PlasmaOrdered By: Gautam Dill on 12-21-2022 Cholesterol [Mass/Vol] 209 mg/dL 140-200 [facility] Comment on above: Chol less than 200 m g/dl low riskChol 201-239 mg/dl borderline riskChol 240 mg/dl and greater high risk Cholesterol in LDL Calc [Mas s/Vol]Ordered By: Gautam Dill on 12-21-2022 Cholesterol in LDL [Mass/Vol] 117 mg/dL 0-100 [facility] Comment on above: LDL ATP III CLASSIFI CATIONLDL less than 100 mg/dL OptimalLDL 100-129 mg/dL Near or above optimalLDL 130-159 mg/dL Borderline highLDL 160-189 mg/dL HighLDL greater than 189 mg/dL Very high Cholesterol in VLDL Calc [Ma ss/Vol]Ordered By: Gautam Dill on 12-21-2022 Cholesterol in VLDL [Mass/Vol] 16 mg/dL [facility] Creatinine [Mass/volume] in Serum or PlasmaOrdered By: Gautam Dill on 12-21-2022 Creatinine [Mass/Vol] 0.84 mg/dL 0.60-1.20 [facility] Eosinophils Auto (Bld) [#/Vo l]Ordered By: Gautam Dill on 12-21-2022 Eosinophils (Bld) [#/Vol] 0.4 10*3/uL 0.0-0.45 [facility] Eosinophils/100 WBC Auto (Bl d)Ordered By: Gautam Dill on 12-21-2022 Eosinophils/100 WBC (Bld) 8.4 % . [facility] Erythrocyte distribution wid th Auto (RBC) [Ratio]Ordered By: Gautam Dill on 12-21-2022 Erythrocyte distribution width (RBC) [Ratio] 14.0 % 11.9-15.3 [facility] Globulin Calc (S) [Mass/Vol] Ordered By: Gautam Dill on 12-21-2022 Globulin (S) [Mass/Vol] 2.3 g/dL [facility] Glucose [Mass/volume] in Ser um or PlasmaOrdered By: Gautam Dill on 12-21-2022 Glucose [Mass/Vol] 85 mg/dL 70-100 [facility] Comment on above: ADA recommended refe rence rangeRandom Glucose Reference Range is dependent on time and content of last meal. Glucose of more than 200 mg/dL in a nonstressed, ambulatory subject supports the diagnosis of Diabetes Mellitus. Hematocrit Auto (Bld) [Volum e fraction]Ordered By: Gautam Dill on 12-21-2022 Hematocrit (Bld) [Volume fraction] 43.7 % 34.0-46.4 [facility] Hemoglobin [Mass/volume] in BloodOrdered By: Gautam Dill on 12-21-2022 Hemoglobin (Bld) [Mass/Vol] 14.3 g/dL 11.8-15.4 [facility] Leukocytes [#/volume] correc daron for nucleated erythrocytes in Blood by Automated counOrdered By: Gautam Dill on 12-21-2022 WBC corrected for nucl RBC Auto (Bld) [#/Vol] 4.7 10*3/uL 3.8-11.6 [facility] Lymphocytes Auto (Bld) [#/Vo l]Ordered By: Gautam Dill on 12-21-2022 Lymphocytes (Bld) [#/Vol] 1.3 10*3/uL 1.00-4.8 [facility] Lymphocytes/100 WBC Auto (Bl d)Ordered By: Gautam Dill on 12-21-2022 Lymphocytes/100 WBC (Bld) 27.1 % . [facility] MCH Auto (RBC) [Entitic mass ]Ordered By: Gautam Dill on 12-21-2022 MCH (RBC) [Entitic mass] 29.6 pg 24.7-34.3 [facility] MCHC Auto (RBC) [Mass/Vol]Or dered By: Gautam Dill on 12-21-2022 MCHC (RBC) [Mass/Vol] 32.8 g/dL 32.0-35.0 [facility] MCV Auto (RBC) [Entitic vol] Ordered By: Gautam Dill on 12-21-2022 MCV (RBC) [Entitic vol] 90.3 fL 80-100 [facility] Monocytes Auto (Bld) [#/Vol] Ordered By: Gautam Dill on 12-21-2022 Monocytes (Bld) [#/Vol] 0.3 10*3/uL 0.0-0.8 [facility] Monocytes/100 WBC Auto (Bld) Ordered By: Gautam Dill on 12-21-2022 Monocytes/100 WBC (Bld) 6.9 % . [facility] Neutrophils Auto (Bld) [#/Vo l]Ordered By: Gautam Dill on 12-21-2022 Neutrophils (Bld) [#/Vol] 2.7 10*3/uL 1.8-7.7 [facility] Neutrophils/100 WBC Auto (Bl d)Ordered By: Gautam Dill on 12-21-2022 Neutrophils/100 WBC (Bld) 56.9 % . [facility] No Panel InformationOrdered By: Gautam Dill on 12-21-2022 Estimated GFR (CKD-EPI) > 60.0 mL/Min [facility] Creatinine Clearance (Chem N/A [facility] Nucleated erythrocytes [Pres ence] in Blood by Automated countOrdered By: Gautam Dill on 12-21-2022 Nucleated RBC Auto Ql (Bld) 0.1 /100{WBC} 0-0.5 [facility] Platelet mean volume Auto (B ld) [Entitic vol]Ordered By: Gautam Dill on 12-21-2022 Platelet mean volume (Bld) [Entitic vol] 9.4 fL 6.3-10.7 [facility] Platelets Auto (Bld) [#/Vol] Ordered By: Gautam Dill on 12-21-2022 Platelets (Bld) [#/Vol] 176 10*3/uL 150-450 [facility] Potassium [Moles/volume] in Serum or PlasmaOrdered By: Gautam Dill on 12-21-2022 Potassium [Moles/Vol] 4.7 mmol/L 3.5-5.1 [facility] Protein [Mass/volume] in Ser um or PlasmaOrdered By: Gautam Dill on 12-21-2022 Protein [Mass/Vol] 6.7 g/dL 6.4-8.9 [facility] RBC Auto (Bld) [#/Vol]Ordere d By: Gautam Dill on 12-21-2022 RBC (Bld) [#/Vol] 4.84 10*6/uL 3.60-5.00 [facility] Serum or plasma albumin/glob ulin mass ratioOrdered By: Gautam Dill on 12-21-2022 Albumin/Globulin [Mass ratio] 1.9 {ratio} [facility] Serum or plasma anion gap de terminationOrdered By: Gautam Dill on 12-21-2022 Anion gap [Moles/Vol] 11.5 mmol/L 6.0-15.0 [facility] Serum or plasma high density lipoprotein (HDL) cholesterol measurementOrdered By: Gautam Dill on 12-21-2022 Cholesterol in HDL [Mass/Vol] 76 mg/dL 23-92 [facility] Comment on above: HDL CHOL ATP-III CLA SSIFICATION Cardiovascular RiskHDL > or equal to 60 mg/dL LOWHDL < 40 mg/dL HIGH Serum or plasma total choles terol/high density lipoprotein (HDL) cholesterol mass ratOrdered By: Gautam Dill on 12-21-2022 Cholesterol.total/Dorinda sterol in HDL [Mass ratio] 2.8 {ratio} <5.0 [facility] Sodium [Moles/volume] in Ser um or PlasmaOrdered By: Gautam Dill on 12-21-2022 Sodium [Moles/Vol] 141 mmol/L 136-145 [facility] Thyrotropin [Units/volume] i n Serum or PlasmaOrdered By: Gautam Dill on 12-21-2022 TSH Qn 1.48 m[IU]/L 0.45-5.33 [facility] Thyroxine (T4) free [Mass/vo lume] in Serum or PlasmaOrdered By: Gautam Dill on 12-21-2022 Free T4 [Mass/Vol] 0.87 ng/dL 0.61-1.12 [facility] Triglyceride [Mass/volume] i n Serum or PlasmaOrdered By: Gautam Dill on 12-21-2022 Triglyceride [Mass/Vol] 82 mg/dL 0-149 [facility] Comment on above: TRIG ATP III CLASSIF ICATIONTRIG less than 150 mg/dL NormalTRIG 150-199 mg/dL Borderline highTRIG 200-500 mg/dL High TRIG greater than 500 mg/dL Very highStandard traceable to the Center for Disease Conrtrol and Prevention (CDC) test method. Urea nitrogen [Mass/volume] in Serum or PlasmaOrdered By: Gautam Dill on 12-21-2022 Urea nitrogen [Mass/Vol] 13 mg/dL 7-25 [facility] Vitamin D+Metabolites [Mass/ volume] in Serum or PlasmaOrdered By: Gautam Dill on 12-21-2022 Vitamin D+Metabolites [Mass/Vol] 30.1 ng/mL 30-100 [facility] Comment on above: VITAMIN D STATUS 25( [place])VITAMIN D RANGE (ng/mL) Deficient <20 Insufficient 20 to <30Sufficient 30 to 100Reference: David MF,Mason NC, Susan SPANGLER, et al. Evaluation,treatment, and prevention of vitamin D deficiency; an Endocrine Society clinical practice guideline. JCEM. 2010; 96(7):1911-30. WBC Auto (Bld) [#/Vol]Ordere d By: Gautam Dill on 12-21-2022 WBC (Bld) [#/Vol] 4.7 10*3/uL 3.8-11.6 [facility] Basophils Auto (Bld) [#/Vol] Ordered By: Gautam Dill on 07-02-2022 Basophils (Bld) [#/Vol] 0.1 10*3/uL 0.0-0.2 [facility] Basophils/100 WBC Auto (Bld) Ordered By: Gautam Dill on 07-02-2022 Basophils/100 WBC (Bld) 1.2 % . [facility] Eosinophils Auto (Bld) [#/Vo l]Ordered By: Gautam Dill on 07-02-2022 Eosinophils (Bld) [#/Vol] 0.4 10*3/uL 0.0-0.45 [facility] Eosinophils/100 WBC Auto (Bl d)Ordered By: Gautam Dill on 07-02-2022 Eosinophils/100 WBC (Bld) 8.1 % . [facility] Erythrocyte distribution wid th Auto (RBC) [Ratio]Ordered By: Gautam Dill on 07-02-2022 Erythrocyte distribution width (RBC) [Ratio] 14.2 % 11.9-15.3 [facility] Hematocrit Auto (Bld) [Volum e fraction]Ordered By: Gautam Dill on 07-02-2022 Hematocrit (Bld) [Volume fraction] 46.1 % 34.0-46.4 [facility] Hemoglobin [Mass/volume] in BloodOrdered By: Gautam Dill on 07-02-2022 Hemoglobin (Bld) [Mass/Vol] 15.0 g/dL 11.8-15.4 [facility] Leukocytes [#/volume] correc daron for nucleated erythrocytes in Blood by Automated counOrdered By: Gautam Dill on 07-02-2022 WBC corrected for nucl RBC Auto (Bld) [#/Vol] 5.5 10*3/uL 3.8-11.6 [facility] Lymphocytes Auto (Bld) [#/Vo l]Ordered By: Gautam Dill on 07-02-2022 Lymphocytes (Bld) [#/Vol] 2.2 10*3/uL 1.00-4.8 [facility] Lymphocytes/100 WBC Auto (Bl d)Ordered By: Gautam Dill on 07-02-2022 Lymphocytes/100 WBC (Bld) 39.5 % . [facility] MCH Auto (RBC) [Entitic mass ]Ordered By: Gautam Dill on 07-02-2022 MCH (RBC) [Entitic mass] 29.2 pg 24.7-34.3 [facility] MCHC Auto (RBC) [Mass/Vol]Or dered By: Gautam Dill on 07-02-2022 MCHC (RBC) [Mass/Vol] 32.5 g/dL 32.0-35.0 [facility] MCV Auto (RBC) [Entitic vol] Ordered By: Gautam Dill on 07-02-2022 MCV (RBC) [Entitic vol] 89.9 fL 80-100 [facility] Monocytes Auto (Bld) [#/Vol] Ordered By: Gautam Dill on 07-02-2022 Monocytes (Bld) [#/Vol] 0.4 10*3/uL 0.0-0.8 [facility] Monocytes/100 WBC Auto (Bld) Ordered By: Gautam Dill on 07-02-2022 Monocytes/100 WBC (Bld) 7.0 % . [facility] Neutrophils Auto (Bld) [#/Vo l]Ordered By: Gautam Dill on 07-02-2022 Neutrophils (Bld) [#/Vol] 2.4 10*3/uL 1.8-7.7 [facility] Neutrophils/100 WBC Auto (Bl d)Ordered By: Gautam Dill on 07-02-2022 Neutrophils/100 WBC (Bld) 44.2 % . [facility] Nucleated erythrocytes [Pres ence] in Blood by Automated countOrdered By: Gautam Dill on 07-02-2022 Nucleated RBC Auto Ql (Bld) 0.1 /100{WBC} 0-0.5 [facility] Platelet mean volume Auto (B ld) [Entitic vol]Ordered By: Gautam Dill on 07-02-2022 Platelet mean volume (Bld) [Entitic vol] 8.9 fL 6.3-10.7 [facility] Platelets Auto (Bld) [#/Vol] Ordered By: Gautam Dill on 07-02-2022 Platelets (Bld) [#/Vol] 202 10*3/uL 150-450 [facility] RBC Auto (Bld) [#/Vol]Ordere d By: Gautam Dill on 07-02-2022 RBC (Bld) [#/Vol] 5.13 10*6/uL 3.60-5.00 [facility] WBC Auto (Bld) [#/Vol]Ordere d By: Gautam Dill on 07-02-2022 WBC (Bld) [#/Vol] 5.5 10*3/uL 3.8-11.6 [facility] Basophils Auto (Bld) [#/Vol] Ordered By: Gautam Dill on 03-31-2022 Basophils (Bld) [#/Vol] 0.0 10*3/uL 0.0-0.2 [facility] Basophils/100 WBC Auto (Bld) Ordered By: Gautam Dill on 03-31-2022 Basophils/100 WBC (Bld) 0.8 % . [facility] Eosinophils Auto (Bld) [#/Vo l]Ordered By: Gautam Dill on 03-31-2022 Eosinophils (Bld) [#/Vol] 0.2 10*3/uL 0.0-0.45 [facility] Eosinophils/100 WBC Auto (Bl d)Ordered By: Gautam Dill on 03-31-2022 Eosinophils/100 WBC (Bld) 4.8 % . [facility] Erythrocyte distribution wid th Auto (RBC) [Ratio]Ordered By: Gautam Dill on 03-31-2022 Erythrocyte distribution width (RBC) [Ratio] 14.2 % 11.9-15.3 [facility] Hematocrit Auto (Bld) [Volum e fraction]Ordered By: Gautam Dill on 03-31-2022 Hematocrit (Bld) [Volume fraction] 45.0 % 34.0-46.4 [facility] Hemoglobin [Mass/volume] in BloodOrdered By: Gautam Dill on 03-31-2022 Hemoglobin (Bld) [Mass/Vol] 14.6 g/dL 11.8-15.4 [facility] Laboratory - Hematology and Cell countsOrdered By: Gautam Dill on 03-31-2022 Nucleated RBC/100 WBC (Bld) [Ratio] 0.1 % 0-0.5 [facility] Leukocytes [#/volume] in Blo od by Automated countOrdered By: Gautam Dill on 03-31-2022 WBC (Bld) [#/Vol] 4.3 10*3/uL 4.5-11.0 [facility] Lymphocytes Auto (Bld) [#/Vo l]Ordered By: Gautam Dill on 03-31-2022 Lymphocytes (Bld) [#/Vol] 1.8 10*3/uL 1.00-4.8 [facility] Lymphocytes/100 WBC Auto (Bl d)Ordered By: Gautam Dill on 03-31-2022 Lymphocytes/100 WBC (Bld) 42.9 % . [facility] MCH Auto (RBC) [Entitic mass ]Ordered By: Gautam Dill on 03-31-2022 MCH (RBC) [Entitic mass] 29.7 pg 24.7-34.3 [facility] MCHC Auto (RBC) [Mass/Vol]Or dered By: Gautam Dill on 03-31-2022 MCHC (RBC) [Mass/Vol] 32.5 g/dL 32.0-35.0 [facility] MCV Auto (RBC) [Entitic vol] Ordered By: Gautam Dill on 03-31-2022 MCV (RBC) [Entitic vol] 91.5 fL 80-100 [facility] Monocytes Auto (Bld) [#/Vol] Ordered By: Gautam Dill on 03-31-2022 Monocytes (Bld) [#/Vol] 0.3 10*3/uL 0.0-0.8 [facility] Monocytes/100 WBC Auto (Bld) Ordered By: Gautam Dill on 03-31-2022 Monocytes/100 WBC (Bld) 6.2 % . [facility] Neutrophils Auto (Bld) [#/Vo l]Ordered By: Gautam Dill on 03-31-2022 Neutrophils (Bld) [#/Vol] 1.9 10*3/uL 1.8-7.7 [facility] Neutrophils/100 WBC Auto (Bl d)Ordered By: Gautam Dill on 03-31-2022 Neutrophils/100 WBC (Bld) 45.3 % . [facility] Platelet mean volume Auto (B ld) [Entitic vol]Ordered By: Gautam Dill on 03-31-2022 Platelet mean volume (Bld) [Entitic vol] 9.3 fL 6.3-10.7 [facility] Platelets Auto (Bld) [#/Vol] Ordered By: Gautam Dill on 03-31-2022 Platelets (Bld) [#/Vol] 184 10*3/uL 150-450 [facility] RBC Auto (Bld) [#/Vol]Ordere d By: Gautam Dill on 03-31-2022 RBC (Bld) [#/Vol] 4.92 10*6/uL 3.60-5.00 [facility] Basophils Auto (Bld) [#/Vol] Ordered By: Gautam Dill on 02-25-2022 Basophils (Bld) [#/Vol] 0.0 10*3/uL 0.0-0.2 [facility] Basophils/100 WBC Auto (Bld) Ordered By: Gautam Dill on 02-25-2022 Basophils/100 WBC (Bld) 1.0 % . [facility] Body fluid albumin measureme nt (mass/volume)Ordered By: Gautam Dill on 02-25-2022 Albumin (Body fld) [Mass/Vol] 4.0 g/dL 3.2-5.[address] [facility] [address] biopsyOrdered By: Gautam dunlap on 02-25-2022 Transferrin [Mass/Vol] 247 mg/dL 180-380 [facility] Cholesterol [Mass/volume] in Serum or PlasmaOrdered By: Gautam Dill on 02-25-2022 Cholesterol [Mass/Vol] 226 mg/dL 140-200 [facility] Comment on above: Chol less than 200 m g/dl low riskChol 201-239 mg/dl borderline riskChol 240 mg/dl and greater high risk Cholesterol in LDL Calc [Mas s/Vol]Ordered By: Gautam Dill on 02-25-2022 Cholesterol in LDL [Mass/Vol] 128 mg/dL 0-100 [facility] Comment on above: LDL ATP III CLASSIFI CATIONLDL less than 100 mg/dL OptimalLDL 100-129 mg/dL Near or above optimalLDL 130-159 mg/dL Borderline highLDL 160-189 mg/dL HighLDL greater than 189 mg/dL Very high Cholesterol in VLDL Calc [Ma ss/Vol]Ordered By: Gautam Dill on 02-25-2022 Cholesterol in VLDL [Mass/Vol] 17 mg/dL [facility] Creatinine and Glomerular fi ltration rate.predicted panel (S/P/Bld)Ordered By: Gautam Dill on 02-25-2022 Creatinine [Mass/Vol] 0.82 mg/dL 0.44-1.03 [facility] Eosinophils Auto (Bld) [#/Vo l]Ordered By: Gautam Dill on 02-25-2022 Eosinophils (Bld) [#/Vol] 0.3 10*3/uL 0.0-0.45 [facility] Eosinophils/100 WBC Auto (Bl d)Ordered By: Gautam Dill on 02-25-2022 Eosinophils/100 WBC (Bld) 6.6 % . [facility] Erythrocyte distribution wid th Auto (RBC) [Ratio]Ordered By: Gautam Dill on 02-25-2022 Erythrocyte distribution width (RBC) [Ratio] 13.9 % 11.9-15.3 [facility] Estimated glomerular filtrat ion rate (GFR) non- AmericanOrdered By: Gautam Dill on 02-25-2022 GFR/1.73 sq M.predicted among non-blacks MDRD (S/P/Bld) [Vol rate/Area] > 60 mL/Min [facility] Ferritin [Mass/volume] in Se rum or PlasmaOrdered By: Gautam Dill on 02-25-2022 Ferritin [Mass/Vol] 60.3 ng/mL 11-306.8 [facility] Globulin Calc (S) [Mass/Vol] Ordered By: Gautam Dill on 02-25-2022 Globulin (S) [Mass/Vol] 2.1 g/dL [facility] Hematocrit Auto (Bld) [Volum e fraction]Ordered By: Gautam Dill on 02-25-2022 Hematocrit (Bld) [Volume fraction] 44.0 % 34.0-46.4 [facility] Hemoglobin [Mass/volume] in BloodOrdered By: Gautam Dill on 02-25-2022 Hemoglobin (Bld) [Mass/Vol] 14.7 g/dL 11.8-15.4 [facility] Iron [Mass/volume] in Serum or PlasmaOrdered By: Gautam Dill on 02-25-2022 Iron [Mass/Vol] 94 ug/dL 40-150 [facility] Iron binding capacity [Mass/ volume] in Serum or PlasmaOrdered By: Gautam Dill on 02-25-2022 Iron binding capacity [Mass/Vol] 346 ug/dL 255-450 [facility] Iron saturation [Mass Fracti on] in Serum or PlasmaOrdered By: Gautam Dill on 02-25-2022 Iron saturation [Mass fraction] 27.0 % 20-50 [facility] - Hematology and Cell countsOrdered By: Gautam Dill on 02-25-2022 Nucleated RBC/100 WBC (Bld) [Ratio] 0.1 % 0-0.5 [facility] Leukocytes [#/volume] in Blo od by Automated countOrdered By: Gautam Dill on 02-25-2022 WBC (Bld) [#/Vol] 4.2 10*3/uL 4.5-11.0 [facility] Lymphocytes Auto (Bld) [#/Vo l]Ordered By: Gautam Dill on 02-25-2022 Lymphocytes (Bld) [#/Vol] 1.9 10*3/uL 1.00-4.8 [facility] Lymphocytes/100 WBC Auto (Bl d)Ordered By: Gautam Dill on 02-25-2022 Lymphocytes/100 WBC (Bld) 45.7 % . [facility] MCH Auto (RBC) [Entitic mass ]Ordered By: Gautam Dill on 02-25-2022 MCH (RBC) [Entitic mass] 30.4 pg 24.7-34.3 [facility] MCHC Auto (RBC) [Mass/Vol]Or dered By: Gautam Dill on 02-25-2022 MCHC (RBC) [Mass/Vol] 33.4 g/dL 32.0-35.0 [facility] MCV Auto (RBC) [Entitic vol] Ordered By: Gautam Dill on 02-25-2022 MCV (RBC) [Entitic vol] 91.2 fL 80-100 [facility] Monocytes Auto (Bld) [#/Vol] Ordered By: Gautam Dill on 02-25-2022 Monocytes (Bld) [#/Vol] 0.3 10*3/uL 0.0-0.8 [facility] Monocytes/100 WBC Auto (Bld) Ordered By: Gautam Dill on 02-25-2022 Monocytes/100 WBC (Bld) 7.5 % . [facility] Neutrophils Auto (Bld) [#/Vo l]Ordered By: Gautam Dill on 02-25-2022 Neutrophils (Bld) [#/Vol] 1.7 10*3/uL 1.8-7.7 [facility] Neutrophils/100 WBC Auto (Bl d)Ordered By: Gautam Dill on 02-25-2022 Neutrophils/100 WBC (Bld) 39.2 % . [facility] No Panel InformationOrdered By: Gautam Dill on 02-25-2022 25-Hydroxy Vitamin D Total 25.2 ng/mL 30-100 [facility] Comment on above: VITAMIN D STATUS 25( [place])VITAMIN D RANGE (ng/mL) Deficient <20 Insufficient 20 to <30Sufficient 30 to 100Reference: David MF,Mason NC, Susan SPANGLER, et al. Evaluation,treatment, and prevention of vitamin D deficiency; an Endocrine Society clinical practice guideline. JCEM. 2010; 96(6):1911-30. Estimated GFR () > 60 mL/Min [facility] Comment on above: GFR estimated refere nce range: According to KDOQI guidelines, <60 ml/min/1.73m2 is sufficient to diagnose a patient with chronic kidney disease. Pharmacy Creatinine Clearance (Chem N/A [facility] Platelet mean volume Auto (B ld) [Entitic vol]Ordered By: Gautam Dill on 02-25-2022 Platelet mean volume (Bld) [Entitic vol] 9.5 fL 6.3-10.7 [facility] Platelets Auto (Bld) [#/Vol] Ordered By: Gautam Dill on 02-25-2022 Platelets (Bld) [#/Vol] 198 10*3/uL 150-450 [facility] Protein [Mass/volume] in Ser um or PlasmaOrdered By: Gautam Dill on 02-25-2022 Protein [Mass/Vol] 6.1 g/dL 6.1-7.9 [facility] RBC Auto (Bld) [#/Vol]Ordere d By: Gautam Dill on 02-25-2022 RBC (Bld) [#/Vol] 4.82 10*6/uL 3.60-5.00 [facility] Serum or plasma alanine ding otransferase measurement without P-5'-P (enzymatic activiOrdered By: Gautam Dill on 02-25-2022 ALT No additional P-5'-P [Catalytic activity/Vol] 18 U/L 10-60 [facility] Serum or plasma albumin/glob ulin mass ratioOrdered By: Gautam Dill on 02-25-2022 Albumin/Globulin [Mass ratio] 1.9 {ratio} [facility] Serum or plasma alkaline molly sphatase measurement (enzymatic activity/volume)Ordered By: Gautam Dill on 02-25-2022 ALP [Catalytic activity/Vol] 79 U/L 32-92 [facility] Serum or plasma anion gap de terminationOrdered By: Gautam Dill on 02-25-2022 Anion gap [Moles/Vol] 12.4 mmol/L 6.0-15.0 [facility] Serum or plasma aspartate am inotransferase measurement (enzymatic activity/volume)Ordered By: Gautam Dill on 02-25-2022 AST [Catalytic activity/Vol] 17 U/L 10-42 [facility] Serum or plasma calcium patricia urement (mass/volume)Ordered By: Gautam Dill on 02-25-2022 Calcium [Mass/Vol] 9.4 mg/dL 8.2-10.2 [facility] Serum or plasma chloride isi surement (moles/volume)Ordered By: Gautam Dill on 02-25-2022 Chloride [Moles/Vol] 104 mmol/L 95-114 [facility] Serum or plasma glucose patricia urement (mass/volume)Ordered By: Gautam Dill on 02-25-2022 Glucose [Mass/Vol] 93 mg/dL 70-100 [facility] Comment on above: ADA recommended refe rence rangeRandom Glucose Reference Range is dependent on time and content of last meal. Glucose of more than 200 mg/dL in a nonstressed, ambulatory subject supports the diagnosis of Diabetes Mellitus. Serum or plasma high density lipoprotein (HDL) cholesterol measurementOrdered By: Gautam Dill on 02-25-2022 Cholesterol in HDL [Mass/Vol] 81 mg/dL 35-85 [facility] Comment on above: HDL CHOL ATP-III CLA SSIFICATION Cardiovascular RiskHDL > or equal to 60 mg/dL LOWHDL < 40 mg/dL HIGH Serum or plasma potassium me asurement (moles/volume)Ordered By: Gautam Dill on 02-25-2022 Potassium [Moles/Vol] 4.1 mmol/L 3.5-5.1 [facility] Serum or plasma sodium measu rement (moles/volume)Ordered By: Gautam Dill on 02-25-2022 Sodium [Moles/Vol] 139 mmol/L 136-146 [facility] Serum or plasma total biliru bin measurement (mass/volume)Ordered By: Gautam Dill on 02-25-2022 Bilirubin [Mass/Vol] 0.5 mg/dL 0.3-1.2 [facility] Serum or plasma total carbon dioxide measurement (moles/volume)Ordered By: Gautam Dill on 02-25-2022 CO2 [Moles/Vol] 26.7 mmol/L 22.0-30.0 [facility] Serum or plasma total choles terol/high density lipoprotein (HDL) cholesterol mass ratOrdered By: Gautam Dill on 02-25-2022 Cholesterol.total/Dorinda sterol in HDL [Mass ratio] 2.8 {ratio} <5.0 [facility] Serum or plasma urea nitroge n measurement (mass/volume)Ordered By: Gautam Dill on 02-25-2022 Urea nitrogen [Mass/Vol] 12 mg/dL 01-29 [facility] TSH DL <= 0.005 mIU/L QnOrde red By: Gautam Dill on 02-25-2022 TSH Qn 3.10 m[IU]/L 0.45-5.33 [facility] Thyroxine (T4) free [Mass/vo lume] in Serum or PlasmaOrdered By: Gautam Dill on 02-25-2022 Free T4 [Mass/Vol] 0.83 ng/dL 0.61-1.12 [facility] Triglyceride [Mass/volume] i n Serum or PlasmaOrdered By: Gautam Dill on 02-25-2022 Triglyceride [Mass/Vol] 86 mg/dL 35-149 [facility] Comment on above: TRIG ATP III CLASSIF ICATIONTRIG less than 150 mg/dL NormalTRIG 150-199 mg/dL Borderline highTRIG 200-500 mg/dL High TRIG greater than 500 mg/dL Very highStandard traceable to the Center for Disease Conrtrol and Prevention (CDC) test method. VC COMP CONSULTATIONon 11-05 VC COMP CONSULTATION Patient: IRIS THOMASON Exam Date: 11/05/2021 : 1965 Gender:F Ordering : DR YUNIEL CASTELLANOS M.D. Admission #: [id number] Family : DR GAUTAM DILL Order #: [id number] CLICK HERE TO VIEW EXAM RADIOLOGY REPORT PROCEDURE: VC VEIN CENTER CONSULTATION VEIN CENTER - OFFICE VISIT INITIAL COMPARISON: None. PROGRESS NOTES: 56-year-old female who presents with 3 weeks of left lower extremity severe pain. The patient rates the pain as an 8 on a scale of 1-10. The patient describes constant burning and aching extending from the inferior patella along the anterior lower leg to the mid lower leg. The patient's pain is present constantly and is exacerbated by movement. The patient has mild relief with leg elevation, compression stockings and over the counter oral analgesics. The patient denies any signs and symptoms to suggest arterial ischemia. The patient did express concern over a blood clot which her friend recently had as well as venous disease which runs in her family. The patient describes a family history significant for deep vein thrombus in her mother. Chronic kidney disease in her mother. Cardiac disease, Alzheimer's disease and diabetes in her father. . Two spontaneous miscarriages. The patient's past medical history is extensive significant for pots syndrome, autoimmune disorder, neurologic disorder, gastroesophageal reflux disease, central nervous system disorder, endometriosis, pinned ascites, hyperthyroidism. The patient is currently on gabapentin, Nexium and nebivolol. The patient drinks occasional alcohol. No illicit drug use. The patient has never smoked. No history of deep venous thrombus or pulmonary embolus. See separate history and physical for medication list. No prior treatment for varicose or spider veins. The patient has worn compression stockings for 20 years. Nursing notes were reviewed. I discussed at length that the asymmetry of her anterior tibial tubercle likely was developmental or related to remote apophysitis. The patient certainly could have acute anterior tibial tubercle apophysitis and or patellar tendinitis. I offered a knee x-ray which the patient declined as she is on vaccinated did not want to be exposed in a hospital. Ultrasound venous reflux study performed same day was discussed at length with the patient, and is normal. PHYSICAL EXAM: The right leg demonstrates minimal scattered spider veins. No significant varicose or reticular veins. No active ulceration, subcutaneous edema or skin discoloration. The left leg demonstrates minimal scattered spider veins. No significant varicose or reticular veins. No active ulceration, subcutaneous edema or skin discoloration. Both thighs, legs and feet were symmetrically warm to the touch. Good posterior tibial and dorsalis pedis pulses were present bilaterally. IMPRESSION: 1. No significant venous insufficiency 2. No significant lower extremity varicose veins 3. No lower extremity subcutaneous edema 4. No flow significant arterial disease 5. CEAP: C0, En, An, Pn 6. No superficial or deep vein thrombus 7. 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 Follow-up with her primary care physician for physical therapy and or x-ray/MRI if her symptoms persist Nurse notes, history and physical were reviewed and confirmed, see attached forms. The nurse was present throughout the physical exam and consultation Dictated by: Yuniel Castellanos MD on 11/05/2021 at 10:01 Approved by: Yuniel Castellanos MD on 11/05/2021 at 10:09 Normal [facility] [place] VC VENOUS REFLUX ROJELIO LMTon 0 11-05-2021 VC VENOUS REFLUX ROJELIO LMT Patient: IRIS THOMASON Exam Date: 11/05/2021 : 1965 Gender:F Ordering : DR YUNIEL CASTELLANOS M.D. Admission #: [id number] Family : Order #: [id number] CLICK HERE TO VIEW EXAM RADIOLOGY REPORT PROCEDURE: VEIN CENTER ULTRASOUND VENOUS REFLUX BILATERAL LIMTED COMPARISON: None. INDICATIONS: Pain co-occurrent and due to varicose veins of bilateral legs i83.813 TECHNIQUE: Duplex imaging of the lower extremity to assess the deep and superficial venous system for the presence of deep or superficial venous incompetence and to document the location and severity of disease. The study includes evaluation of the great saphenous vein (GSV), anterior accessory saphenous vein (AASV) and small saphenous vein (SSV). Patient scanned in reverse Trendelenburg and standing. FINDINGS: RIGHT LOWER EXTREMITY: Saphenofemoral Junction Reflux: Yes 9.5mm 0.4 sec GSV: Diam (mm) Reflux/ Time (sec) Proximal Thigh 5.9 No Mid Thigh 5.4 Yes 0.2 Distal Thigh 6.1 No Prox Calf 3.2 No 0.6 Mid Calf 3.1 Yes 0.3 Saphenopopliteal Junction Reflux: 3.8mm No SSV: Proximal Calf 1.7 No Mid Calf 1.2 No AASV: Not present Thrombi: No acute or chronic thrombus visualized Compressibility: Normal Flow: Normal Preforator: Dist/med calf 2.1mm, 0.3s reflux; mid/med calf 3.2 mm, 0.3 reflux; prox/med calf 3.4mm, 0s reflux. Tech Note: Competent SFJ and SPJ. Patent varicose vein prox/med calf that arises off of GSV that measures 2.6mm with 0s reflux. Patent varicose vein dist/med thigh that arises off of GSV and travels anteriorly that measures 4.2mm with 0s reflux. LEFT LOWER EXTREMITY: Saphenofemoral Junction Reflux: Yes 7.3 mm 0.2 sec GSV: Diam (mm) Reflux/Time (sec) Proximal Thigh 6.3 No Mid Thigh 5.5 No Distal Thigh 5.5 Yes 0.4 Prox Calf 2.9 No Mid Calf 2.5 No Saphenopopliteal Junction Relux: 4.2 mm No SSV: Proximal Calf 1.7 No Mid Calf 1.7 No AASV: Not present Thrombi: No acute or chronic thrombus visualized Compressibility: Normal Flow: Normal Family Therapist: Mid/med calf 2.9cm, 0s reflux; prox/ant calf 2.5mm with 0s reflux. Tech Note: Competent SFJ and SPJ. Patent varicose vein prox/med calf that arises off of GSV 2.7mm with 0.2s relfux. Patent varicose vein mid/med thigh that arises off of GSV 3.7mm with 0s reflux. CONCLUSION: 1. No significant venous insufficiency 2. No significant varicose veins 3. No deep or superficial vein thrombus Dictated by: Yuniel Castellanos MD on 11/05/2021 at 09:37 Approved by: Yuniel Castellanos MD on 11/05/2021 at 09:39 Normal [facility] COVID + FLU Quick Testingon 05-20-2021 COVID + FLU Quick Testing Negative [employer] Other Pre-Authorization for Medica l Treatmenton 05-12-2021 Pre-Authorization for Medical Treatment [id number]# 1.00CD:127 Normal [facility] Ambulatory Clinical Summaryo n 04-20-2021 Ambulatory Clinical Summary {[id number] Normal [facility] Patient Educationon 04-20-20 21 Patient Education Urology Kidney Stones Kidney stones are rock-like masses that form inside of the kidneys. Kidneys are organs that make pee (urine). A kidney stone may move into other parts of the urinary tract, including: ? The tubes that connect the kidneys to the bladder (ureters). ? The bladder. ? The tube that carries urine out of the body (urethra). Kidney stones can cause very bad pain and can block the flow of pee. The stone usually leaves your body (passes) through your pee. You may need to have a doctor take out the stone. What are the causes? Kidney stones may be caused by: ? A condition in which certain glands make too much parathyroid hormone (primary hyperparathyroidism). ? A buildup of a type of crystals in the bladder made of a chemical called uric acid. The body makes uric acid when you eat certain foods. ? Narrowing (stricture) of one or both of the ureters. ? A kidney blockage that you were born with. ? Past surgery on the kidney or the ureters, such as gastric bypass surgery. What increases the risk? You are more likely to develop this condition if: ? You have had a kidney stone in the past. ? You have a family history of kidney stones. ? You do not drink enough water. ? You eat a diet that is high in protein, salt (sodium), or sugar. ? You are overweight or very overweight (obese). What are the signs or symptoms? Symptoms of a kidney stone may include: ? Pain in the side of the belly, right below the ribs (flank pain). Pain usually spreads (radiates) to the groin. ? Needing to pee often or right away (urgently). ? Pain when going pee (urinating). ? Blood in your pee (hematuria). ? Feeling like you may vomit (nauseous). ? Vomiting. ? Fever and chills. How is this treated? Treatment depends on the size, location, and makeup of the kidney stones. The stones will often pass out of the body through peeing. You may need to: ? Drink more fluid to help pass the stone. In some cases, you may be given fluids through an IV tube put into one of your veins at the hospital. ? Take medicine for pain. ? Make changes in your diet to help keep kidney stones from coming back. Sometimes, medical procedures are needed to remove a kidney stone. This may involve: ? A procedure to break up kidney stones using a beam of light (laser) or shock waves. ? Surgery to remove the kidney stones. Follow these instructions at home: Medicines ? Take xpqv-viw-rkovjzz and prescription medicines only as told by your doctor. ? Ask your doctor if the medicine prescribed to you requires you to avoid driving or using heavy machinery. Eating and drinking ? Drink enough fluid to keep your pee pale yellow. You may be told to drink at least 8?10 glasses of water each day. This will help you pass the stone. ? If told by your doctor, change your diet. This may include: ? Limiting how much salt you eat. ? Eating more fruits and vegetables. ? Limiting how much meat, poultry, fish, and eggs you eat. ? Follow instructions from your doctor about eating or drinking restrictions. General instructions ? Collect pee samples as told by your doctor. You may need to collect a pee sample: ? 24 hours after a stone comes out. ? 8?12 weeks after a stone comes out, and every 6?12 months after that. ? Strain your pee every time you pee (urinate), for as long as told. Use the strainer that your doctor recommends. ? Do not throw out the stone. Keep it so that it can be tested by your doctor. ? Keep all follow-up visits as told by your doctor. This is important. You may need follow-up tests. How is this prevented? To prevent another kidney stone: ? Drink enough fluid to keep your pee pale yellow. This is the best way to prevent kidney stones. ? Eat healthy foods. ? Avoid certain foods as told by your doctor. You may be told to eat less protein. ? Stay at a healthy weight. Where to find more information ? National Kidney Foundation (NKF): www.kidney.org ? Urology Care Foundation (UCF): www.urologyhealth.org Contact a doctor if: ? You have pain that gets worse or does not get better with medicine. Get help right away if: ? You have a fever or chills. ? You get very bad pain. ? You get new pain in your belly (abdomen). ? You pass out (faint). ? You cannot pee. Summary ? Kidney stones are rock-like masses that form inside of the kidneys. ? Kidney stones can cause very bad pain and can block the flow of pee. ? The stones will often pass out of the body through peeing. ? Drink enough fluid to keep your pee pale yellow. This information is not intended to replace advice given to you by your health care provider. Make sure you discuss any questions you have with your health care provider. Document Released: 10/11/2008 Document Revised: 09/11/2019 Document Reviewed: 09/11/2019 [employer] Patient Education ? 2019 [employer]. Gracia Santo [facility] Urology Office/Clinic Noteon 04-20-2021 Urology Office/Clinic Note Chief Complaint Pt is here for recurrent UTI HPI Staff Iris is a 56 y.o. female new patient here for recurrent UTI. Referred by Gautam Dill. Urine culture done on 03/03/21 was negative. Urine culture done on 02/13/21 was positive. Pt states she is currently on an antibiotic for her an infection now, pt is unsure of the antibiotic. Pt states the infections started in August. Dysuria: yes españa Incomplete bladder emptying: denies Hematuria: denies Frequency: yes Urgency: yes Nocturia: 2-3x a night Stream: steady stream Leaking: yes Post void dripping: denies Wearing pads/ Depends: yes wears pads Urge incontinence: yes Stress incontinence: yes with lifting Incontinence without Sensory Awareness: denies Abdominal pain: denies Flank pain: denies Sexual complaints: _ History of Present Illness staff HPI reviewed and agree. Review of Systems PHQ Score Initial Depression Screen Score: 0 no fever, chills, malaise, myalgia. no rash/lesions. no chest pain, palpitations, or SOB. no abdominal pain, nausea, vomiting. no unilateral calf swelling, redness, pain Physical Exam Vitals & Measurements HR: 77(Peripheral) BP: 132/84 HT: 170 cm HT: 170.0 cm WT: 86 kg WT: 86.0 kg BMI: 29.76 General: nontoxic, NAD Mouth: moist mucosa Lungs: normal respiratory effort Cardio: regular rate, good distal perfusion Abdomen: nondistended, no suprapubic distention or tenderness, no CVA tenderness Neurologic: Grossly normal Skin: No rashes or suspicious lesions Assessment/Plan 1. Recurrent UTI (N39.0: Urinary tract infection, site not specified) Pt reports UTI sx every month since August. Can't remember how frequently prior to that, but doesn't think it was more than once a year. Sx that make her think she has a UTI are burning with urination, odor, cloudy urine, increased frequency. I have a few urine cx for review from PCP - 2 show neg/contamination, 1 shows E Coli but only 30k. Advised pt that moving fwd any time she has UTI sx needs to contact our office and complete UACS. Then we can monitor how many times are true UTIs and require abx vs how many times are not. UA completed in office today shows no microhematuria, has trace leuks only. Currently on abx. Today we discussed the following methods to decrease frequency of UTIs: 1) increase fluids 2) double voids (encouraged to lean forward, apply gentle pressure on the bladder, and standing then sitting again) 3) I discussed that there is evidence that herbal supplements may help - cranberry, probiotics, and d-mannose. 4) proper hygiene habits (wipe front to back every time, avoid baths & hot tubs, avoid any scented [employer] products, urinate after sexual activity, etc) post-menopause x 1.5 yrs. pt already has rx for estrogen cream per [facility] however she hasn't been using it due to risk of cervical cancer. has appt with [facility] next week. I encouraged her to discuss with them bc I think the estrogen cream will be very helpful in UTI prevention. +hx kidney stones with spontaneous passage 8-10 yrs ago. no recent imaging. will check KUB and renal US. return for cysto/possible UD. Ordered: Office Visit Level 4 New 74166 Urnls Dip Stick Auto w/o Microscopy POC 16142 US Renal XR Abdomen 1 View 2. OAB (overactive bladder) (N32.81: Overactive bladder) bothersome frequency, urgency, and variable nocturia with mixed incontinence. has not tried any treatment in past. will address once we get through the UTI work-up. f/u w me 1 mo after cysto. need to check PVR prior to starting any meds. Ordered: Office Visit Level 4 New 72122 3. Mixed incontinence urge and stress (N39.46: Mixed incontinence) see #2 Ordered: Office Visit Level 4 New 34827 4. Kidney stones (N20.0: Calculus of kidney) no recent flank pain or gross hematuria. will image due to recurrent UTIs. see #1. Ordered: Office Visit Level 4 New 23444 US Renal XR Abdomen 1 View Follow-up With When Contact Information cysto/UD with DLS, f/u with me 1 mo later Additional Instructions: Patient Education Kidney Stones, [id number] Problem List/Past Medical History Ongoing Anxiety Autonomic dysfunction Frequent urination GERD (gastroesophageal reflux disease) Hyperglycemia Hyperlipidemia Hypertension Hyperthyroidism Kidney stones Memory loss Microcytic anemia Mixed incontinence urge and stress OAB (overactive bladder) POTS (postural orthostatic tachycardia syndrome) Recurrent UTI Tremor Uterine fibroid Vitamin D deficiency Historical No qualifying data Procedure/Surgical History Appendectomy, Colonoscopy, Colposcopy, D&C - Dilatation and curettage. Medications Bystolic, Oral, Daily gabapentin 100 mg Cap, Oral, TID Iron 100 Plus, Oral, Daily Nexium, Oral, Daily Allergies Augmentin (Diarrhea) Bactrim DS (Itching) CeleBREX (Unknown) Contrast Dye (Unknown) Depakote (Unknown) Keflex (Unknown) LORazepam (Unknown) Levaquin (Diarrhea) (more content not included)... Normal [facility] Comment on above: Result Comment: Elec tronically Signed By: JENNI OSBORNE PA-C\.br\Date and Time Signed: 04/20/21 10:26 EST Vital Signs Date Time Vital Sign Value Performing Clinician Facility 06-13-2024 11:15-0500 Body height 170.2 cm [employer] Work Phone: [facility] [employer] 06-13-2024 11:15-0500 Body mass index (BMI) [Ratio] 31.48 kg/m2 [employer] Work Phone: [facility] 06-13-2024 11:15-0500 Body weight 91.17 kg [employer] Work Phone: [facility] 06-13-2024 11:15-0500 Diastolic blood pressure 78 mm[Hg] [employer] Work Phone: [facility] [employer] 06-13-2024 11:15-0500 Systolic blood pressure 130 mm[Hg] [employer] Work Phone: [facility] 02-08-2024 11:24-0400 Body height 170.18 cm DO Gautam [employer] Work Phone: [facility] 02-08-2024 11:24-0400 Body mass index (BMI) [Ratio] 31.8 kg/m2 DO Gautam Dill Work Phone: [facility] 02-08-2024 11:24-0400 Body weight 92.07 kg DO Gautam Dill Work Phone: [facility] 01-12-2024 10:22-0400 Body mass index (BMI) [Ratio] 31.96 kg/m2 Keiko Del Realkes DO Work Phone: [facility] 01-12-2024 10:22-0400 Body weight 91.17 kg Keiko Del Realkes DO Work Phone: [facility] 01-12-2024 10:22-0400 Diastolic blood pressure 78 mm[Hg] Keiko Del Realkes DO Work Phone: [facility] 01-12-2024 10:22-0400 Systolic blood pressure 132 mm[Hg] Keiko Del Realkes DO Work Phone: [facility] 01-03-2024 13:36-0400 Body mass index (BMI) [Ratio] 32.08 kg/m2 Delores Visci DO Work Phone: [facility] 01-03-2024 13:36-0400 Body weight 91.54 kg Delores Visci DO Work Phone: [facility] 01-03-2024 13:36-0400 Diastolic blood pressure 86 mm[Hg] Delores Visci DO Work Phone: [facility] 01-03-2024 13:36-0400 Systolic blood pressure 154 mm[Hg] Delores Visci DO Work Phone: [facility] 11-16-2023 15:24-0400 Diastolic blood pressure 65 mm[Hg] Lainey Lindsey MD, PhD Work Phone: [facility] 11-16-2023 15:24-0400 Heart rate 62 /min Lainey Lindsey MD, PhD Work Phone: [facility] 11-16-2023 15:24-0400 Systolic blood pressure 153 mm[Hg] Lainey Lindsey MD, PhD Work Phone: [facility] 10-19-2023 08:43-0400 Body height 171.45 cm DO Gautam Rogerss Work Phone: [facility] 10-19-2023 08:43-0400 Body mass index (BMI) [Ratio] 30.5 kg/m2 DO Gautameduarda Rogerss Work Phone: [facility] 10-19-2023 08:43-0400 Body weight 89.81 kg DO Gautameduarda Rogerss Work Phone: [facility] 10-19-2023 08:43-0400 Diastolic blood pressure 66 mm[Hg] DO Gautameduarda Rogerss Work Phone: [facility] 10-19-2023 08:43-0400 Heart rate 70 /min DO Gautam Rogerss Work Phone: [facility] 10-19-2023 08:43-0400 Respiratory rate 16 /min DO Gautam Rogerss Work Phone: [facility] 10-19-2023 08:43-0400 SaO2% (BldA) [Mass fraction] 97 % DO Gautam Rogerss Work Phone: [facility] 10-19-2023 08:43-0400 Systolic blood pressure 110 mm[Hg] DO Gautam Rogerss Work Phone: [facility] 06-20-2023 12:30-0500 Body height 171.45 cm Gautam Rogerss Other [employer] [facility] [employer] Other 06-20-2023 12:30-0500 Body mass index (BMI) [Ratio] 30.86 kg/m2 Gautameduarda Rogerss Other [employer] [facility] [employer] Other 06-20-2023 12:30-0500 Body weight 90.72 kg Gautameduarda Rogerss Other [employer] Other 06-20-2023 12:30-0500 Diastolic blood pressure 78 mm[Hg] Gautam Dill Other [employer] Other 06-20-2023 12:30-0500 Respiratory rate 16 /min Gautam Dill Other [employer] Other 06-20-2023 12:30-0500 SaO2% (BldA) [Mass fraction] 95 % Gautam Dill Other [employer] Other 06-20-2023 12:30-0500 Systolic blood pressure 122 mm[Hg] Gautam Dill Other [employer] Other 03-22-2023 08:05-0500 Body height 171.5 cm Matthew Hall MD Work Phone: [facility] 03-22-2023 08:05-0500 Body weight 89.81 kg Matthew Hall MD Work Phone: [facility] 03-22-2023 08:05-0500 Diastolic blood pressure 76 mm[Hg] Matthew Hall MD Work Phone: [facility] 03-22-2023 08:05-0500 Heart rate 56 /min Matthew Hall MD Work Phone: [facility] 03-22-2023 08:05-0500 Systolic blood pressure 130 mm[Hg] Matthew Hall MD Work Phone: [facility] 04-05-2022 10:30-0500 Body height 171.45 cm Gautam Dill Other [employer] Other 04-22-2021 08:30-0500 Body height 171.45 cm Gautam Dill Other [employer] Other 04-22-2021 08:30-0500 Body mass index (BMI) [Ratio] 30.49 kg/m2 Gautam Dill Other [employer] Other 04-22-2021 08:30-0500 Body weight 89.63 kg Gautam Dill Other [employer] Other 04-22-2021 08:30-0500 Diastolic blood pressure 74 mm[Hg] Gautam Dill Other [employer] Other 04-22-2021 08:30-0500 Respiratory rate 17 /min Gautam Dill Other [employer] Other 04-22-2021 08:30-0500 SaO2% (BldA) [Mass fraction] 99 % Gautam Dill Other [employer] Other 04-22-2021 08:30-0500 Systolic blood pressure 132 mm[Hg] Gautam Dill Other [employer] Other Encounters Encounter Date Encounter Type Care Provider Facility Start: 07-04-2024 End: 07-04-2024 Orders Only Reyna Sampsona [employer] Work Phone: Pulmonary Medicine Comment on above: Primary pulmonary hy pertension (HCC) (Primary Dx) Start: 06-15-2024 End: 06-21-2024 Telephone encounter Lorenzo Lora MD Work Phone: Cardiology Comment on above: Results Start: 06-13-2024 End: 06-13-2024 Office outpatient visit 15 minutes Keiko Cordova DO Work Phone: [facility] Comment on above: Misbah shanks Start: 06-13-2024 End: 06-13-2024 ambulatory KEIKO CORDOVA Not Available Start: 05-11-2024 End: 05-11-2024 Orders Only Lorenzo Lora MD Work Phone: Cardiology Comment on above: Pulmonary hypertensi on, unspecified (HCC) (Primary Dx) Start: 04-23-2024 ambulatory [facility] Start: 04-23-2024 ambulatory [facility] Start: 04-04-2024 End: 04-04-2024 ambulatory Gautam Dill Facility:[facility] Start: 04-03-2024 End: 04-04-2024 Telephone encounter Keiko Cordova DO Work Phone: [facility] Start: 03-30-2024 End: 03-30-2024 ambulatory KEIKO CORDOVA Not Available Start: 03-05-2024 End: 03-05-2024 ambulatory PIETRO ELLER [facility] Start: 02-13-2024 End: 02-13-2024 Patient encounter procedure DO Gautam Dill Work Phone: [facility] Work Phone: Start: 02-13-2024 End: 02-13-2024 ambulatory DO Gautam Aniyah Work Phone: [facility] Work Phone: Start: 02-09-2024 End: 02-09-2024 ambulatory DELORES Elias ABBY Not Available Start: 02-08-2024 End: 02-08-2024 ambulatory DO Gautam Kens Work Phone: [facility] Work Phone: Start: 02-08-2024 End: 02-08-2024 Patient encounter procedure DO Gautam Kens Work Phone: [facility] Work Phone: Start: 01-12-2024 End: 01-12-2024 Bamboo flowsheet Keiko Cordova DO Work Phone: [facility] Start: 01-12-2024 End: 01-12-2024 Bamboo flowsheet Keiko Cordova DO Work Phone: [facility] Start: 01-12-2024 End: 01-12-2024 Telephone encounter Keiko Cordova DO Work Phone: [facility] Start: 01-12-2024 End: 01-12-2024 Patient encounter status Keiko Cordova DO Work Phone: [facility] Work Phone: Start: 01-12-2024 End: 01-12-2024 Periodic preventive med est patient 40-64yrs Keiko Cordova DO Work Phone: [facility] Comment on above: Encounter for gyneco logical examination without abnormal finding (Primary Dx); Screening for malignant neoplasm of cervix; Encounter for screening mammogram for breast cancer; Thickened endometrium; Vaginal dryness Start: 01-12-2024 End: 01-12-2024 ambulatory KEIKO CORDOVA Not Available Start: 01-03-2024 End: 01-03-2024 Bamboo flowsheet Delores A Visci DO Work Phone: [facility] Start: 01-03-2024 End: 01-03-2024 Bamboo flowsheet Delores A Visci DO Work Phone: [facility] Start: 01-03-2024 End: 01-03-2024 Office outpatient visit 15 minutes Delores A Visci DO Work Phone: [facility] Comment on above: Breast pain in femal e; Encounter for screening mammogram for malignant neoplasm of breast Start: 01-03-2024 End: 01-03-2024 ambulatory DELORES A VISCI Not Available Start: 11-30-2023 ambulatory Matthew Cheng MD Work Phone: Endocrinology Comment on above: Results Start: 11-30-2023 E-mail encounter fro m caregiver Matthew Hall MD Work Phone: Endocrinology Start: 11-30-2023 Telephone encounter Matthew Hall MD Work Phone: Endocrinology Comment on above: Patient Question Start: 11-24-2023 End: 11-24-2023 Refill Matthew Hall MD Work Phone: Endocrinology Start: 11-24-2023 End: 11-24-2023 Patient encounter procedure DO Gautam Dill Work Phone: [facility] [place] Work Phone: Start: 11-16-2023 End: 11-16-2023 ambulatory GAUTAM DILL Facility:[facility] Start: 11-16-2023 End: 11-16-2023 Patient encounter procedure Lainey Lindsey MD, PhD Work Phone: Endocrinology Comment on above: Multiple thyroid nod ules (Primary Dx) Start: 11-07-2023 Telephone encounter Lainey martinez MD, PhD Work Phone: Endocrinology & [facility] Comment on above: Patient Question Start: 10-19-2023 End: 10-19-2023 Patient encounter procedure DO Gautam Dill Work Phone: [facility] [place] Work Phone: Start: 10-19-2023 End: 10-19-2023 ambulatory DO Gautam Dill Work Phone: [facility] Work Phone: Start: 10-19-2023 End: 10-19-2023 ambulatory DO Gautam Dill Work Phone: [facility] Work Phone: Start: 10-19-2023 End: 10-19-2023 Patient encounter procedure DO Gautam Dill Work Phone: [facility] [place] Work Phone: Start: 10-10-2023 End: 10-10-2023 ambulatory DELORES A VISCI Not Available Start: 08-24-2023 End: 08-24-2023 ambulatory DELORES A VISCI Not Available Start: 08-09-2023 Telephone encounter Heather farrar MD Work Phone: Gynecology Comment on above: Question Start: 08-08-2023 End: 08-09-2023 ambulatory Heather Blanton MD Work Phone: Gynecology Comment on above: Thickened endometriu m (Primary Dx) Start: 08-08-2023 End: 08-08-2023 Telemedicine consultation with patient Heather Blanton MD Work Phone: [facility] Start: 08-02-2023 End: 08-02-2023 ambulatory NAVNEET THAO Not Available Start: 07-14-2023 Telephone encounter Matthew Hall MD Work Phone: Endocrinology Comment on above: fax # Start: 06-23-2023 End: 06-23-2023 Patient encounter procedure DO Gautam Dill Work Phone: [facility] [place] Work Phone: Start: 06-23-2023 End: 06-23-2023 ambulatory DO Gautam Dill Work Phone: [facility] Work Phone: Start: 06-20-2023 End: 06-20-2023 ambulatory Gautam Dill Other [employer] Other Start: 06-20-2023 Office outpatient vi sit 25 minutes Gautam Dill [facility] [place] Start: 06-16-2023 End: 06-16-2023 ambulatory Gautam Dill Other [employer] Other Start: 06-16-2023 Telephone encounter Gautam Dill [facility] [place] Start: 05-12-2023 End: 05-12-2023 ambulatory Gautam Dill Other [employer] Other Start: 05-12-2023 Telephone encounter Gautam Aniyah [facility] [place] Start: 04-11-2023 End: 04-11-2023 ambulatory Gautam Rogerscee Other [employer] Other Start: 04-11-2023 Telephone encounter Gautam Kencee [facility] [place] Start: 03-22-2023 End: 03-22-2023 Office outpatient new 45 minutes Matthew Hall MD Work Phone: Endocrinology Comment on above: Multiple thyroid nod ules (Primary Dx) Start: 01-18-2023 End: 01-18-2023 ambulatory Gautam Dill Other [employer] Other Start: 01-18-2023 Telephone encounter Gautam Dill [facility] [place] Start: 12-31-2022 Telephone encounter Lainey martinez MD, PhD Work Phone: [address] [place] [address] Comment on above: Patient Question Start: 12-22-2022 End: 12-22-2022 ambulatory Gautam Dill Other [employer] Other Start: 12-22-2022 Telephone encounter Gautam Dill [facility] [place] Start: 12-21-2022 End: 12-21-2022 ambulatory DO Gautam Dill Work Phone: [facility] Work Phone: Start: 12-21-2022 End: 12-21-2022 Patient encounter procedure DO Gautam Dill Work Phone: [facility] [place] Work Phone: Start: 12-20-2022 End: 12-20-2022 ambulatory Gautam Dill Other [employer] Other Start: 12-20-2022 Telephone encounter Gautam Dill [facility] [place] Start: 08-19-2022 End: 08-19-2022 ambulatory Gautam Dill Other [employer] Other Start: 08-19-2022 Telephone encounter Gautam Dill [facility] [place] Start: 08-07-[address] GAUTAM DILL Facility: Start: 08-04-2022 End: 08-04-2022 ambulatory Guatam Dill Other [employer] Other Start: 08-04-2022 Telephone encounter Gautam Dill [facility] [place] Start: 07-05-2022 End: 07-05-2022 ambulatory Gautam Dill Other [employer] Other Start: 07-05-2022 Telephone encounter Gautam Dill [facility] [place] Start: 07-02-2022 End: 07-02-2022 ambulatory DO Gautam Dill Work Phone: [facility] Work Phone: Start: 07-02-2022 End: 07-02-2022 Patient encounter procedure DO Gautam Dill Work Phone: [facility] [place] Work Phone: Start: 05-18-2022 End: 05-18-2022 ambulatory Gautam Dill Other [employer] Other Start: 05-18-2022 Telephone encounter Gautam Dill [facility] [place] Start: 04-07-2022 End: 04-07-2022 ambulatory Gautam Dill Other [employer] Other Start: 04-07-2022 Telephone encounter Gautam Dill [facility] [place] Start: 04-05-2022 End: 04-05-2022 ambulatory Gautam Dill Other [employer] Other Start: 04-05-2022 Office outpatient vi sit 15 minutes Gautam Dill [facility] [place] Start: 04-05-2022 Telephone encounter Gautameduarda Dill [facility] [place] Start: 03-31-2022 End: 03-31-2022 ambulatory DO Gautameduarda Dill Work Phone: [facility] Work Phone: Start: 03-31-2022 End: 03-31-2022 Patient encounter procedure DO Gautam Dill Work Phone: [facility] [place] Start: 03-23-2022 End: 03-23-2022 ambulatory DO Gautam Dill Work Phone: [facility] Work Phone: Start: 03-23-2022 End: 03-23-2022 Patient encounter procedure DO [facility]ill [facility] Start: 03-01-2022 End: 03-01-2022 ambulatory Gautam Aniyah Other [employer] Other Start: 03-01-2022 Telephone encounter Gautam Aniyah [facility] [place] Start: 02-25-2022 Telephone encounter Gautam Aniyah [facility] [place] Start: 02-25-2022 End: 02-25-2022 ambulatory DO Gautameduarda Dill Work Phone: [employer] Other Start: 02-25-2022 End: 02-25-2022 Patient encounter procedure DO Gautameduarda Dill Work Phone: [facility] [place] Start: 02-16-2022 End: 02-16-2022 ambulatory Gautam Kencee Other [employer] Other Start: 02-16-2022 Telephone encounter Gautam Dill [facility] [place] Start: 01-29-2022 End: 01-29-2022 ambulatory Gautameduarda Dill Other [employer] Other Start: 01-29-2022 Telephone encounter Gautam Rogerscee [facility] Start: 11-13-2021 End: 11-13-2021 ambulatory FIORELLA MA Facility:[facility] Start: 11-05-2021 End: 11-06-[address] YUNIEL CASTELLANOS Facility:[facility] Start: 10-27-2021 End: 10-27-2021 ambulatory Gautam Kencee Other [employer] Other Start: 10-27-2021 Telephone encounter Gautam Aniyah [facility] Start: 08-05-2021 End: 08-05-2021 ambulatory Gautam Kencee Other [employer] Other Start: 08-05-2021 Telephone encounter Gautameduarda Dill [facility] Start: 05-20-2021 End: 05-20-2021 ambulatory Gautameduarda Dill Other [employer] Other Start: 05-20-2021 Nursing evaluation o f patient and report Gautameduarda Rogerscee [facility] Start: 04-22-2021 End: 04-22-2021 ambulatory Gautameduarda Dill Other [employer] Other Start: 04-22-2021 Office outpatient vi sit 25 minutes Gautameduarda Dill [facility] Start: 08-22-2017 Ambulatory GAUTAMEDUARDA DILL Facility:[id number] Start: 08-22-2017 Ambulatory Facility:[id number] Procedures Date Procedure Procedure Detail Performing Clinician Start: 04-23-2024 Lipid 1996 panel - S bonita or Plasma Reyna Buck [employer] Work Phone: Start: 11-24-2023 CT of abdomen and pe lvis without contrast DO Gautam Dill Work Phone: Start: 11-24-2023 US scan of gallbladder DO Gautam Dill Work Phone: Start: 11-16-2023 Us soft tissue head & neck real time imge argenis Lindsey MD, PhD Work Phone: Start: 03-23-2022 Screening mammograph y of bilateral breasts DO Gautam Dill Work Phone: Counseling Gautam Dill Other Plan of Treatment Date Care Activity Detail Author Start: 04-08-2032 Urine microalbumin profile DTaP,Tdap,Td Vaccine (2 - Td or Tdap) [facility] Start: 04-23-2029 Lipid panel Lipid Screening [facility] Start: 04-23-2027 Diabetes Screening Diabetes Screenin g [facility] Start: 02-08-2025 Screening for malign ant neoplasm of breast Mammogram Screening [facility] Start: 01-22-2025 End: 01-22-2025 Patient encounter procedure 01/22/2025 9:30 AM EDT Office Visit [facility] [address] [place] [id number] Keiko Cordova, DO [address] [place] [address] [facility] Start: 11-06-2024 End: 12-23-2024 US Thyroid gland US THYROID/PARATHYROID Radiology Routine Multiple thyroid nodules Expected: 11/06/2024, Expires: 12/23/2024 [facility] Work Phone: Comment on above: Expected: 11/06/2024 , Expires: 12/23/2024 Start: 07-19-2024 End: 07-19-2024 Patient encounter procedure 07/19/2024 4:15 PM EDT Procedure Visit [facility] [address] [place] [phone] Keiko Cordova, DO [address] [place] [address] [facility] Start: 07-04-2024 End: 07-04-2024 ambulatory 07/04/2024 1:15 PM EST Results Only Cardiology [address] [place] [address] pulmonary hypertension, second opinion Cardiology Comment on above: pulmonary hypertensi on, second opinion Start: 07-04-2024 End: 07-04-2024 Patient encounter procedure Cardiology Comment on above: pulmonary hypertensi on, second opinion Start: 04-26-2024 End: 04-26-2024 Patient encounter procedure 04/26/2024 9:45 AM EST Office Visit [facility] [address] [place] [address] Keiko Cordova, DO [address] [place] [address] [facility] Start: 03-27-2024 End: 03-27-2024 Patient encounter procedure 03/27/2024 11:15 AM EST Office Visit [facility] [address] [place] [address] Keiko Cordova, DO [address] [place] [address] [facility] Start: 03-15-2024 End: 03-15-2024 Professional / ancillary services management 03/15/2024 9:30 AM EST Ancillary Procedure [facility] [address] [place] [address] [facility] Start: 02-09-2024 End: 02-09-2024 Professional / ancillary services management 02/09/2024 8:00 AM EDT Ancillary Procedure [facility] [place] [address] [place] [address] [facility] [place] Start: 01-12-2024 End: 01-12-2024 Patient encounter procedure [facility] Comment on above: Encounter for gyneco logical examination without abnormal finding; Screening for malignant neoplasm of cervix; Encounter for screening mammogram for breast cancer Start: 01-08-2024 Covid-19 Vaccine ( season) Covid-19 Vaccine ( season) [facility] Start: 01-08-2024 Influenza vaccination [facility] Start: 01-03-2024 End: 03-04-2025 DBT Breast - bilateral screening Bilateral screening mammogram with tomosynthesis Imaging Routine Encounter for screening mammogram for malignant neoplasm of breast Expected: 01/03/2024, Expires: 03/04/2025 [facility] Work Phone: Comment on above: Expected: 01/03/2024 , Expires: 03/04/2025 Start: 01-03-2024 End: 01-03-2024 Patient encounter procedure 01/03/2024 1:00 PM EDT Office Visit [facility] [address] [place] [address] Delores Cantor DO [address] [place] [address] Arrived [facility] Comment on above: Arrived Start: 11-16-2023 End: 11-16-2023 Patient encounter procedure 11/16/2023 3:40 PM EDT Office Visit Endocrinology [address] [place] [address] Lainey Lindsey MD, PhD [address] [place] [address] Thyroid diagnosis. Endocrinology Comment on above: Thyroid diagnosis. Start: 10-19-2023 Patient referral [facility] Work Phone: Start: 10-19-2023 Comprehensive metabo lic 1999 panel - Serum or Plasma [facility] Start: 10-19-2023 [facility] Start: 08-08-2023 End: 08-07-2024 Basic metabolic 1999 panel - Serum or Plasma BASIC METABOLIC PNL Lab Routine Thickened endometrium Expected: 08/08/2023, Expires: 08/07/2024 [facility] Work Phone: Comment on above: Expected: 08/08/2023 , Expires: 08/07/2024 Start: 08-08-2023 End: 08-07-2024 CBC W Auto Differential panel - Blood CBC + DIFF Lab Routine Thickened endometrium Expected: 08/08/2023, Expires: 08/07/2024 [facility] Work Phone: Comment on above: Expected: 08/08/2023 , Expires: 08/07/2024 Start: 05-09-2023 Behavioral Health Screening Behavioral Health Screening [facility] Start: 05-09-2023 Depression Assessment Depression Ass essment [facility] Start: 04-25-2023 HPV Testing HPV Testing [facility] Start: 04-25-2023 Screening for malign ant neoplasm of cervix HPV Testing [facility] Start: 01-07-2023 Covid-19 Vaccine () Covid-19 Vaccine () [facility] Start: 01-07-2023 Influenza vaccination Influenza Vacc ine (#1) [facility] Start: 05-09-2022 Depression Assessment Depression Ass essment [facility] Start: 10-30-2021 Screening for malign ant neoplasm of breast Mammogram Screening [facility] Start: 04-17-2021 Diabetes Screening Diabetes Screenin g [facility] Start: 04-25-2019 Pap Testing Pap Testing [facility] Start: 04-25-2019 Screening for malign ant neoplasm of cervix [facility] Start: 2015 Pneumococcal Vaccine : 50+ (1 of 1 - PCV) Pneumococcal Vaccine: 50+ (1 of 1 - PCV) [facility] Start: 2015 Shingrix Vaccine (1 of 2) Shingrix Vaccine (1 of 2) [facility] Start: 05-09-2014 Mammography Mammogram Screening [facility] Start: 05-09-2014 Screening for malign ant neoplasm of breast Mammogram Screening [facility] Start: 2010 Cologuard (FIT-DNA) Cologuard (FIT-D NA) [facility] Start: 2010 Colonoscopy Colonoscopy [facility] Start: 2010 Colorectal Cancer Screening Colorectal Cancer Screening [facility] Start: [address] COLONOGRAPHY [facility] Start: 2010 Fecal Occult Blood Fecal Occult Bloo d [facility] Start: 2010 Lipid 1996 panel - S bonita or Plasma Lipid Screening [facility] Start: 2010 Lipid panel Lipid Screening [facility] Start: 2010 Screening for malign ant neoplasm of colon [facility] Start: 2010 SIGMOIDOSCOPY SIGMOIDOSCOPY [facility] Start: 02-06-1984 Hepatitis B Vaccine (1 of 3 - 19+ 3-dose series) Hepatitis B Vaccine (1 of 3 - 19+ 3-dose series) [facility] Start: 02-06-1984 Urine microalbumin profile DTaP,Tdap,Td Vaccine (1 - Tdap) [facility] Start: 1983 Anxiety Screening Anxiety Screening [facility] Start: 1983 Depression Screening Depression Scre ening [facility] Start: 1983 Hepatitis C Screening Hepatitis C [facility] Start: 1983 Hepatitis C screening Hepatitis C [facility] Start: 1983 HIV Screening HIV Screening [facility] Start: 1983 HIV screening HIV Screening [facility] Start: 1965 Covid-19 Vaccine (#1) Covid-19 Vacci ne (#1) [facility] Start: 1965 Hepatitis B Vaccine (1 of 3 - 3-dose series) Hepatitis B Vaccine (1 of 3 - 3-dose series) [facility] Albumin/Globulin ratio [facility] Anion gap measurement [facility] Basophils [#/volume] in Blood by Automated count [facility] Basophils/100 leukoc ytes in Blood by Automated count [facility] Calculated LDL cholesterol level [facility] Cholesterol.total/Ch oles terol in HDL [Mass Ratio] in Serum or Plasma [facility] CYTOLOGY NON-SEAM CLOSER CYTOLOGY NON-GY N Lab Routine Multiple thyroid nodules 11/16/2023 4:06 PM EDT [facility] Work Phone: End: 05-11-2025 ECG COMPLETE ECG COMPLETE ECG Routine Pulmonary hypertension, unspecified (HCC) 1 Occurrences starting 05/11/2024 until 05/11/2025 [facility] Work Phone: Comment on above: 1 Occurrences starti ng 05/11/2024 until 05/11/2025 Eosinophils/100 leukocytes in Blood by Automated count [facility] Erythrocyte distribu tion width [Ratio] by Automated count [facility] Erythrocytes [#/volu me] in Blood [facility] Fluoroscopy of esophagus [facility] Globulin [Mass/volum e] in Serum [facility] Hematocrit [Volume Fraction] of Blood [facility] Hemoglobin [Mass/vol ume] in Blood [facility] Leukocytes [#/volume ] corrected for nucleated erythrocytes in Blood by Automated coun [facility] Leukocytes [#/volume ] in Blood [facility] LUNG DIFFUSION CAPAC ITY (DLCO) LUNG DIFFUSION CAPACITY (DLCO) PFT Routine Primary pulmonary hypertension (HCC) Ordered: 07/04/2024 [facility] Comment on above: Ordered: 07/04/2024 LUNG VOLUMES LUNG VOLUMES PFT Routine Primary pulmonary hypertension (HCC) Ordered: 07/04/2024 [facility] Comment on above: Ordered: 07/04/2024 Lymphocytes [#/volum e] in Blood by Automated count [facility] Lymphocytes/100 leukocytes in Blood by Automated count [facility] MCH [Entitic mass] b y Automated count [facility] MCHC [Mass/volume] b y Automated count [facility] MCV [Entitic volume] by Automated count [facility] Monocytes [#/volume] in Blood by Automated count [facility] Monocytes/100 leukoc ytes in Blood by Automated count [facility] Neutrophils [#/volum e] in Blood by Automated count [facility] Neutrophils/100 leukocytes in Blood by Automated count [facility] End: 08-03-2025 NM Lung Ventilation and Perfusion NM LUNG VENT / PERF VQ Radiology Routine Primary pulmonary hypertension (HCC) 1 Occurrences starting 07/04/2024 until 08/03/2025 [facility] Comment on above: 1 Occurrences starti ng 07/04/2024 until 08/03/2025 Nucleated erythrocyt es [Presence] in Blood by Automated count [facility] Patient referral [facility] Work Phone: Platelet mean volume [Entitic volume] in Blood by Automated count [facility] Platelets [#/volume] in Blood [facility] SENDOUT TEST MISCELLANEOUS [facility] SENDOUT TEST MISCELLANEOUS [facility] Lab Routine Screening for malignant neoplasm of cervix Ordered: 01/12/2024 [facility] Work Phone: Comment on above: Ordered: 01/12/2024 SIX MINUTE WALK SIX MINUTE WALK PFT Routine Primary pulmonary hypertension (HCC) Ordered: 07/04/2024 [facility] Comment on above: Ordered: 07/04/2024 SPIROMETRY WITH DILA TOR IF OBSTRUCTED SPIROMETRY WITH DILATOR IF OBSTRUCTED PFT Routine Primary pulmonary hypertension (HCC) Ordered: 07/04/2024 [facility] Work Phone: Comment on above: Ordered: 07/04/2024 Thyroglobulin Ab [Units/volume] in Serum or Plasma [facility] Thyroperoxidase Ab [Units/volume] in Serum or Plasma [facility] End: 04-20-2024 Us soft tissue head & neck real time imge docm US THYROID/PARATHYROID Radiology Routine Multiple thyroid nodules 1 Occurrences starting 03/22/2023 until 04/20/2024 [facility] Work Phone: Comment on above: 1 Occurrences starti ng 03/22/2023 until 04/20/2024 VLDL cholesterol measurement [facility] End: 08-03-2025 XR Chest PA and Lateral XR CHEST 2V FRONTAL/LAT Radiology Routine Primary pulmonary hypertension (HCC) 1 Occurrences starting 07/04/2024 until 08/03/2025 [facility] Comment on above: 1 Occurrences starti ng 07/04/2024 until 08/03/2025 [facility] SP OR Immunizations Immunization Date Immunization Notes Care Provider Fa cility 04-08-2022 tetanus toxoid, reduced diphtheria toxoid, and acellular pertussis vaccine, adsorbed DO Gautam Dill Work Phone: [facility] NEGATED: Highlighted row has not occurred!06-05-2019 influenza, seasonal, injectable Patient Objection Gautam Dill Other [facility] Payers Date Payer Category Payer Self-pay [id number] 2017 Medicare [id number] 2017 Medicare (Managed Care) 1.2. [id number] 1965 Unknown [id number] 2.16.84 [id number] 1965 Unknown [id number] 2.16.84 0.1.393019.3.579.2.593 1965 Unknown [id number] 2.16.84 0.1.867744.3.579.2.593 1965 Unknown [id number] 2.16.84 0.1.699478.3.579.2.1259 1965 Unknown [id number] 2.16.84 0.1.676420.3.579.2.1259 1965 Unknown [id number] 2.16.84 0.1.978849.3.579.2.1259 1965 Unknown [id number] 2.16.84 0.1.611673.3.579.2.1259 1965 Unknown [id number] 2.16.84 0.1.661449.3.579.2.1259 1965 Unknown [id number] 2.16.84 0.1.952806.3.579.2.1259 1965 Unknown [id number] 2.16.84 0.1.743786.3.579.2.1259 1965 Unknown [id number] 2.16.84 0.1.590444.3.579.2.1259 1965 Unknown [id number] 2.16.84 0.1.951989.3.579.2.1259 1959 Private Health Insurance [id number] Unknown [id number] 2.16.8 40.1.578456.3.579.2.531 Unknown [id number] 2.16.8 40.1.183097.3.579.2.531 Unknown [id number] 2.16.8 40.1.762798.3.579.2.531 Unknown [id number] 2.16.8 40.1.180829.3.579.2.531 Unknown [id number] 2.16.8 40.1.757396.3.579.2.531 Social History Date Type Detail Facility Unknown if ever smoked [employer] Other Start: 05-23-2018 End: 08-08-2023 Sex Assigned At [facility] Start: 1965 Sex Assigned At Female F [facility] Start: 03-11-2014 End: 12-21-2022 Tobacco smoking status ILIS Never smoked tobacco [facility] Start: 03-11-2014 End: 12-21-2022 Tobacco use and exposure Smokeless tobacco non-user [facility] Start: 05-23-2018 End: 07-04-2024 Alcohol intake Current non-drinker of alcohol (finding) [facility] Start: 05-23-2018 End: 08-08-2023 History of Social function [facility] National Score (1-100), lower number is lower risk Not on file [facility] Start: 1965 Sex Assigned At Not on file [facility] Start: 01-12-2024 End: 06-13-2024 Alcoholic beverage intake Ex-drinker (finding) [facility] Start: 07-21-2022 Gender identity Identifies as female gender (finding) [facility] Goals Date Patient Goal Desired Activity /State Personal health goal Functional Status Date Assessment Result Facility 11-25-2014 Are you deaf, or do you have serious difficulty hearing No 11/25/2014 2:54 PM Ashwini Ayala MA No [facility] 11-25-2014 Are you blind, or do you have serious difficulty seeing, even when wearing glasses No 11/25/2014 2:54 PM Ashwini Ayala MA No [facility] 11-25-2014 Do you have serious difficulty walking or climbing stairs No 11/25/2014 2:54 PM EDT Ashwini Stevens JOAN No [facility] 11-25-2014 Do you have difficul ty dressing or bathing No 11/25/2014 2:54 PM EDT Ashwini Stevens MA No [facility] 11-25-2014 Because of a physica l, mental, or emotional condition, do you have difficulty doing errands alone such as visiting a physician's office or shopping No 11/25/2014 2:54 PM EDT Ashwini Stevens MA No [facility] Mental Status Date Assessment Result Facility 11-25-2014 Because of a physica l, mental, or emotional condition, do you have serious difficulty concentrating, remembering, or making decisions No 11/25/2014 2:54 PM EDT Ashwini Stevens MA No [facility] Clinical Notes 12-26-2014 to 06-19-2024 Telephone Encounter - Rohini Day - 06/15/2024 3:59 PM ESTTelephone Encounter - Rohini Day - 06/15/2024 3:59 PM Joana Cordoav DO - 06/13/2024 11:15 AM EST Note Date & Type Note Facility 06-19-2024 Note [facility] Received copy of PFT /DLCO done at the [facility] [place] 05/30/24 Apparently on ly DLCO was performed without spirometry As I review the order, appeared that was for PFT and DLCO, but apparently ordered only DLCO Recommend to have actual PFT done, so will order for pulmonary hypertension and EMMANUEL. Will send new order to with apologies to patient that apparently I had not ordered the the PFT, only the DLCO, and the results of low value for DLCO is not sufficient to give interpretation of reasons for her dyspnea symptoms. Will ask staff to notify patient. Iris Sequeira PA-C [facility] Cardiovascular Medicine [phone] [facility] 06-15-2024 Telephone encounter Note Outside Echo report scanned into [employer] for review. [facility] 06-15-2024 Miscellaneous Notes Outside Echo report scanned into [employer] for review. documented in this encounter [facility] 06-13-2024 History of Presen t illness Narrative Images from the original note were not included. Keiko Cordova D.O. Obstetrics and Gynecology Patient: Iris Thomason : 1965 (59 y.o.) Exam Date: 06/13/2024 Reason for Visit - Chief Complaint Patient presents with Follow-up Pt presents for follow up for US results. Pt recently been diagnosed with Pulmonary hypertension. Visit Vitals BP 130/78 Ht 5' 7 Wt 201 lb BMI 31.48 kg/m OB Status Premenopausal Smoking Status Never BSA 2.08 m Allergies Allergen Reactions Iodinated Contrast Media Other Reaction(s): Other: See Comments, Unknown chest pain , increased HR, increased BP Other Reaction(s): Other: See Comments, Unknown Reaction Amoxicillin-Pot Clavulanate Diarrhea Other Reaction(s): Unknown Azithromycin Other Reaction(s): GI Upset Severe diarrhea Budesonide-Formoterol Fumarate Other Reaction(s): Blood pressure Celecoxib Other Reaction(s): Unknown Cephalexin Other Reaction(s): other, Unknown Cephalosporins Other Reaction(s): Unknown Clavulanic Acid Other Reaction(s): diarrhea Clonidine Other Reaction(s): Spasm Other Reaction(s): eye brown pain, spasms Formoterol Other Reaction(s): blood pressure Levofloxacin Diarrhea Other Reaction(s): Unknown Lorazepam Other Reaction(s): Unknown Methylprednisolone Other Reaction(s): Unknown Metronidazole Diarrhea Other Reaction(s): Unknown Had diarrhea and dizziness and funny feeling in head and arms Morphine Other Reaction(s): Other: See Comments, Unknown CHEST PAIN AND INCREASED BLOOD PRESSURE Oxybutynin Other Reaction(s): other, Unknown Penicillins Other Reaction(s): GI Upset, other Severe diarrhea Rofecoxib Sulfamethoxazole Other Reaction(s): itching Sulfamethoxazole-Trimethoprim Itching Trimethoprim Other Reaction(s): itching Valproic Acid Other Reaction(s): Unknown Wound Dressing Adhesive Other Reaction(s): Other: See Comments blisters History of Present Illness, Associated Treatments and Results - OB History Para Term AB Living 4 3 3 0 1 0 SAB IAB Ectopic Multiple Live Births 1 0 0 0 0 # Outcome Date GA Lbr Joseluis/2nd Weight Sex Type Anes PTL Lv 4 Term Vag-Spont Comments: forceps delivery 3 Term Vag-Spont Comments: still born 2 Term Vag-Spont 1 SAB Obstetric Comments Pap 12/21/22- Neg Mammogram 03/23/22- Neg ([facility]) U/S 08/02/23: endometrial thickness measures 6.4 mm, fibroids, no polyps noted, adenomyosis Review of Systems - Const: Denies appetite change, fever, chills. Allergy: Denies medication reaction. Ocular: Denies visual acuity change. ENT: Denies hearing change. Endoc: Denies weight loss. Resp: Denies dyspnoea, wheezing. Cardiac: Denies angina, palpitations. GI: Denies nausea, vomiting. Haem: Denies bleeding. : Denies incontinence. MSK: Denies arthralgias, joint oedema. Derm: Denies rash, hair loss. Neuro: Denies ataxia, tremor. Also see HPI for elements of ROS documented therein and for details of positive findings, which shall supersede the foregoing. Medication Documentation Review Audit Reviewed by Marilee Cr MA (Mid Level Business Analyst) on 06/13/24 at 1114 Medication Order Taking? Sig Documenting Provider Last Dose Status Calcium Carb-Cholecalciferol (Calcium 600/Vitamin D3) 600-20 MG-MCG tablet [id number] Take by mouth Delores Cantor, DO Active esomeprazole (NexIUM) [address] capsule [id number] Take 20 mg by mouth in the morning. Take before meals. Do not open capsule.. Delores Cantor, DO Active gabapentin (Neurontin) 100 MG capsule [id number] Take 100 mg by mouth in the morning and 100 mg before bedtime. Historical Provider, Active loperamide (Imodium A-D) 2 MG tablet [id number] Take 2-4 mg by mouth 4 (four) times a day as needed for diarrhea Delores Cantor, DO Active magnesium 200 MG tablet [id number] Take by mouth Keiko Cordova, DO Active Multiple Vitamins-Minerals (multivitamin with minerals) tablet [id number] Take 1 tablet by mouth Daily Keiko Cordova DO Active nebivolol (Bystolic) 5 MG tablet [id number] Take 2.5 mg by mouth in the morning. Historical Provider, Active Past Medical History: Diagnosis Date Abnormal Pap smear of cervix 10/30/20 ascus hpv neg Anemia Autoimmune disease (CMS/HCC) Breast lump Chicken pox History of Liv-Elise virus infection History of thyroid nodule History of tremor Hyperkinetic heart syndrome Hypertension (CMS/HCC) IBS (irritable bowel syndrome) POTS (postural orthostatic tachycardia syndrome) Pulmonary hypertension (CMS/HCC) Past Surgical History: Procedure Laterality Date COLONOSCOPY 04/18/2017 normal ([facility]) COLPOSCOPY 05/2018 DILATION AND CURETTAGE OF UTERUS 03/2014 Hysteroscopy with polypectomy, directed D&C using TRUCLEAR [employer] morcellator (Dr Blanton) EXPLORATORY LAPAROTOMY 1996 D&C for endometriosis HYSTEROSCOPY W/ POLYPECTOMY 2017 Removal of nebothian cyst, pap smear, Hysteroscopy with polypectomy and visually guided d&c (Dr. Blanton) IR FINE NEEDLE ASPIRATION THYROID 05/2015 MOLE REMOVAL Right cheek Family History Problem Relation Name Age of Onset Breast cancer Father's Sister Physical Exam - General appearance, mentation, extraocular movements, facial strength and movement, hearing, upper and lower extremity strength and tone, sensation to gross testing, coordination, and gait are normal or at baseline unless noted below. General: Alert, cooperative, no distress, appears stated age Head: Normocephalic, without obvious abnormality, atraumatic Eyes: sclera anicteric Ears: no obvious hearing deficit Skin: Warm and dry Heart: Regular rate Lungs: Respirations unlabored Extremities normal, atraumatic, no cyanosis or edema Diagnoses and all orders for this visit: Thickened endometrium Endometrial thickness 6.5mm- discussed EMB. Patient is having cardiology and pulmonology appointments coming up soon and does not want to do any procedures until after those appointments. Will schedule into July ICD-10-CM 1. Thickened endometrium R93.89 documented in this encounter [facility] 05-26-2024 Note Opened in error. Kaye sed for administrative reasons. [facility] 05-26-2024 Note Forwarded to [facility] per BY; Patient notified and agreeable. She also wanted you to know that she did follow up with her PCP who then recommended the visits with [facility]. [facility] 05-26-2024 Note Reviewed faxed infor malcolm from [facility] sleep disorder center regarding diagnostic sleep study performed 05/15/2024. This is scanned into her EMR under media tab, on 05/22/2024 Report indicates there is a dictation to follow, but that there was no significant apnea found on the diagnostic study. Will notify patient of this, and if additional information is sent we will also review. However, with above information there is no indication for formal referral to sleep medicine. Copy to Sylvia Barrera To notify pt. Copy to PCP and Dr. Lorenzo Lora, at [facility], has appt for 2nd option of PH scheduled 07/04/24 Iris Sequeira PA-C [facility] [phone] [facility] 04-23-2024 Note 03/05/24 ANT Eller: Iris is a pleasant 59 year old female previously evaluated for orthostatic intolerance (OI) consistent with an autonomic neuropathy, subset postural orthostatic tachycardia syndrome (POTS), the connective tissue disorder of hypermobility at our [facility] in the Heart [facility]ascular Center at the [facility]. Last evaluated in clinic over 4 years ago. Chief Complaint: Chest pain: sharp needle like pain while standing last month. Lasted a few seconds mid to left chest. Afterthis she felt lightheaded. No heart racing. 3-4 times last month. Previously with her POTS: she would get this sensation in her left wrist. She has had this needle like sharp pain traveling around her left side and up to her heart in the past for 20 years . Positive lightheadedness No short of breath. No exercise intolerance. No chest pressure, tightening, diaphoresis, nausea, fatigue. Not exertional., NO history smoking, diabetes, high cholesterol. +HTN 20 years No history of heart disease except PGF CO 61. Mother: atrial fibrillation. She has increase in palpitations this year. Nightly. No syncope. 04/23/24 today patient here with , weights have been stable, says in jan was at store and while standing, had 5 episodes of needle-like pain in left chest; each episode, each lasted 6 seconds. Does not recall if had dyspnea, palpitations, racing heart, dizziness, but head did not feel right . For this whole year felt less energy after COVID, also more palpitations. Has poor energy, craving sweets, low exercise tolerance. When supine laying on left side feels heart palpitations. Occasionally will wake up gasping, this seems to of moderate or stopped after she stopped using melatonin. Very sedentary, has stable EMMANUEL and is worn out by any exertion. says occasionally snores but no breath holding. Intermittent mild lower extremity edema occasional positional lightheadedness, denies palpitations or racing heartbeats, syncope orpresyncope, orthopnea, PND, GI or other bleeding. Labs: Available labs reviewed, will request any done by PCP.--received. October CMP WNL, Past testing reviewed and discussed: Echocardiogram, 3-day Holter and nuclear study. PLAN: reduce Nebivolol to 2.5mg and see if more energy without worsening palpitations, labs today, consider sleep apnea evaluation. Encouraged to start regular exercise program, reduce sweets and improve lifestyle in general. LABS AFTER VISIT: Normal CMP, magnesium, thyroid studies and BNP at 95. No anemia with normal platelets. LDL 124 with normal triglycerides. Based on this her 10-year ASCVD risk is low at 2%. No changes based on these findings, I recommend she discuss with PCP noncardiac reasons for her symptoms. She does not have classic POTS symptoms, see how she feels on low-dose nebivolol. Assessment and Plan ASSESSMENT Iris Thomason is a 59 y.o. female # Atypical chest pain brief needles sensation in left chest - 03/13/2024 nuc MPS low risk/normal, walked 8 minutes and 41 seconds #Palpitations - 3-day Holter monitor: 1 brief nonsustained V. tach #Essential hypertension # Mild pulmonary hypertension -04/13/2024 TTE: EF 60%, RVSP 45 mmHg, no wall motion abnormality and unable to determine diastolic dysfunction - says occasional snoring without breath-holding -- Ordered PFT and home sleep study # History of POTS --On nebivolol, no syncope or frequency of orthostatic symptoms or tachycardia. # History of thyroid nodules with benign biopsy #No history of diabetes PLAN: --Today she appears compensated, has multiple somatic complaints that may or may not be cardiac in origin with needles sensation in chest with no specific trigger. Since COVID earlier this year she has had significant decline in functional status and uptick in symptoms. She has poor habits for diet and exercise but is not diabetic. After visit labs show no electrolyte dyscrasias or thyroid issues. -- For mild pulmonary hypertension, she never smoked and denies asthma/COPD. Has mildly elevated hemoglobin. Normal BNP, no signs RV strain/failure on echo. --Will obtain PFT and home sleep study for oxygenation. Consider referral to sleep medicine/pulmonology according to findings. Consider further evaluation for PAH --For atypical chest pain and needle sensation, low risk nuclear MPS, low suspicion for cardiac origin --For fatigue, will reduce nebivolol to 2.5 mg and see if this helps --For POTS, she does not have praveen symptoms with orthostasis or tachycardia, including on 3-day Holter --Had praveen discussion with her about improving her diet and activity habits, moderate sweets, start exercising at 5 minutes daily and gradually increase to a minimum of 20 minutes daily --After labs returned with no significant findings, will recommend that she follow-up with her PCP to jose (more content not included)... [facility] 04-03-2024 Telephone encounter Note Can you please inform pt d/t the holidays we do not have anything available. Would recommend pt to contact primary care physician or go to urgent care. Thank you. [facility] 04-03-2024 Miscellaneous Notes Can you please inform pt d/t the holidays we do not have anything available. Would recommend pt to contact primary care physician or go to urgent care. Thank you. Patient stated she has burning, feels like she can't empty and has an odor for a week now. documented in this encounter [facility] 04-03-2024 Telephone encounter Note Patient stated she has burning, feels like she can't empty and has an odor for a week now. [facility] 03-05-2024 Note Iris is a pleas ant 59 year old female previously evaluated for orthostatic intolerance (OI) consistent with an autonomic neuropathy, subset postural orthostatic tachycardia syndrome (POTS), the connective tissue disorder of hypermobility at our [facility] in the [facility] Center at the [facility]. Last evaluated in clinic over 4 years ago. Chief Complaint: Chest pain: sharp needle like pain while standing last month. Lasted a few seconds mid to left chest. Afterthis she felt lightheaded. No heart racing. 3-4 times last month. Previously with her POTS: she would get this sensation in her left wrist. She has had this needle like sharp pain traveling around her left side and up to her heart in the past for 20 years . No short of breath. No exercise intolerance. No chest pressure, tightening, diaphoresis, nausea, fatigue. Not exertional., NO history smoking, diabetes, high cholesterol. +HTN 20 years No history of heart disease except PGF CO 61. Mother: atrial fibrillation. She has increase in palpitations this year. Nightly. No syncope. Review of Systems Cardiovascular: Negative for near-syncope and syncope. Neurological: Positive for light-headedness. Objective Vitals reviewed. Constitutional: Appearance: Healthy appearance. Not in distress. Neck: Vascular: No JVR. JVD normal. Pulmonary: Effort: Pulmonary effort is normal. Breath sounds: Normal breath sounds. No wheezing. No rhonchi. No rales. Chest: Chest wall: Not tender to palpatation. Cardiovascular: PMI at left midclavicular line. Normal rate. Regular rhythm. Normal S1. Normal S2. Murmurs: There is no murmur. No gallop. No click. No rub. Pulses: Intact distal pulses. Edema: Peripheral edema absent. Abdominal: General: Bowel sounds are normal. Palpations: Abdomen is soft. Tenderness: There is no abdominal tenderness. Musculoskeletal: Normal range of motion. General: No tenderness. Skin: General: Skin is warm and dry. Neurological: General: No focal deficit present. Mental Status: Alert and oriented to person, place and time. Assessment/Plan The primary encounter diagnosis was POTS (postural orthostatic tachycardia syndrome). Diagnoses of Hypertension, unspecified type and Palpitations were also pertinent to this visit. Problem List Items Addressed This Visit None Visit Diagnoses POTS (postural orthostatic tachycardia syndrome) - Primary Relevant Medications nebivolol (Bystolic) 5 mg tablet Other Relevant Orders ECG 12 lead Holter monitor - 48 hour Hypertension, unspecified type Relevant Medications nebivolol (Bystolic) 5 mg tablet Palpitations Relevant Orders Holter monitor - 48 hour POTS. Chronic Stable. Continue nebivolol present dose. No syncope. Some rare orthostatic symptoms intermittent. HTN. Chronic. Stable. No significant hypertension. Some blood pressure lability. Highest SBP 150mmhg/Continue the nebivolol present dose. Lowest 90/55mmhg Palpitations. Mother with atrial fibrillation. Will order 48 hour monitor. Atypical sensation upper left chest. Not descriptive of CAD. Not related to exertion, stress. RTC yearly. Pietro Eller APRN PhD [facility] Nurse Practitioner Division of Cardiovascular Medicine [facility]. [facility] 01-12-2024 Telephone encounter Note Called and spoke with pt- scheduled us and ov for march [facility] 01-12-2024 Miscellaneous Notes Called and spoke with pt- scheduled us and ov for march Patient is fine to schedule US anytime by the end of this year Pt said she thought her pelvic us was in April but it was in july of this year and she wasn't sure when she needed to schedule the ultrasound documented in this encounter [facility] 01-12-2024 Telephone encounter Note Patient is fine to schedule US anytime by the end of this year [facility] Work Phone: 01-12-2024 Telephone encounter Note Pt said she thought her pelvic us was in April but it was in july of this year and she wasn't sure when she needed to schedule the ultrasound [facility] 01-12-2024 History of Presen t illness Narrative Images from the original note were not included. Keiko Cordova D.O. Obstetrics and Gynecology Patient: Iris Thomason : 1965 (58 y.o.) Yearly Wellness Exam Date: 01/12/2024 Reason for Visit - Chief Complaint Patient presents with Gynecologic Exam Pt Seen Dr. Cantor 10/2023. Pt c/o pain with intercourse, vaginal dryness with intercourse. Denies bowel/bladder concerns. Denies any current breast pain. Had some a couple weeks ago and Seen Dr. Cantor. Denies vaginal bleeding/spotting. Visit Vitals BP 132/78 Wt 201 lb LMP (LMP Unknown) BMI 31.96 kg/m OB Status Premenopausal Smoking Status Never BSA 2.07 m Allergies Allergen Reactions Iodinated Contrast Media Other Reaction(s): Other: See Comments, Unknown chest pain , increased HR, increased BP Other Reaction(s): Other: See Comments, Unknown Reaction Amoxicillin-Pot Clavulanate Diarrhea Other Reaction(s): Unknown Azithromycin Other Reaction(s): GI Upset Severe diarrhea Budesonide-Formoterol Fumarate Other Reaction(s): Blood pressure Celecoxib Other Reaction(s): Unknown Cephalexin Other Reaction(s): other, Unknown Cephalosporins Other Reaction(s): Unknown Clavulanic Acid Other Reaction(s): diarrhea Clonidine Other Reaction(s): Spasm Other Reaction(s): eye brown pain, spasms Formoterol Other Reaction(s): blood pressure Levofloxacin Diarrhea Other Reaction(s): Unknown Lorazepam Other Reaction(s): Unknown Methylprednisolone Other Reaction(s): Unknown Metronidazole Diarrhea Other Reaction(s): Unknown Had diarrhea and dizziness and funny feeling in head and arms Morphine Other Reaction(s): Other: See Comments, Unknown CHEST PAIN AND INCREASED BLOOD PRESSURE Oxybutynin Other Reaction(s): other, Unknown Penicillins Other Reaction(s): GI Upset, other Severe diarrhea Rofecoxib Sulfamethoxazole Other Reaction(s): itching Sulfamethoxazole-Trimethoprim Itching Trimethoprim Other Reaction(s): itching Valproic Acid Other Reaction(s): Unknown Wound Dressing Adhesive Other Reaction(s): Other: See Comments blisters History of Present Illness, Associated Treatments and Results - OB History Para Term AB Living 4 3 3 0 1 0 SAB IAB Ectopic Multiple Live Births 1 0 0 0 0 # Outcome Date GA Lbr Joseluis/2nd Weight Sex Type Anes PTL Lv 4 Term Vag-Spont Comments: forceps delivery 3 Term Vag-Spont Comments: still born 2 Term Vag-Spont 1 SAB Obstetric Comments Pap 12/21/22- Neg Mammogram 03/23/22- Neg ([facility]) U/S 08/02/23: endometrial thickness measures 6.4 mm, fibroids, no polyps noted, adenomyosis Review of Systems - General: Chills denies. Allergy/Immunology: Rash Denies. ENT: Denies Difficulty swallowing. Endocrine: Denies Cold intolerance denies. Heat intolerance denied. Respiratory: Denies Chest pain denies. Shortness of breath denies. Breast: Denies Bloody nipple discharge denies. Breast lump denies. Cardiovascular: Denies Chest pain. Gastrointestinal: Abdominal pain denies. Blood in stool denies. Hematology: Easy bruising denies. Prolonged bleeding denies. Women Only: Breast lump denies. Vaginal bleeding between periods is denied. Vaginal discharge/itching denied. Genitourinary: Blood in urine denies. Painful urination denies. Incontinence denies. Skin: Hair changes. Neurologic: Seizures denied. Stroke denies. Psychiatric: Anxiety denies. Depressed mood denies. Medication Documentation Review Audit Reviewed by Marilee Cr MA (Mid Level Business Analyst) on 01/12/24 at 1020 Medication Order Taking? Sig Documenting Provider Last Dose Status Calcium Carb-Cholecalciferol (Calcium 600/Vitamin D3) 600-20 MG-MCG tablet [id number] Take by mouth Delores Cantor, DO Active esomeprazole (NexIUM) [address] capsule [id number] Take 20 mg by mouth in the morning. Take before meals. Do not open capsule.. Delores Cantor DO Active gabapentin (Neurontin) 100 MG capsule [id number] Take 100 mg by mouth in the morning and 100 mg before bedtime. Historical Provider, Active loperamide (Imodium A-D) 2 MG tablet [id number] Take 2-4 mg by mouth 4 (four) times a day as needed for diarrhea Delores Cantor, DO Active nebivolol (Bystolic) 5 MG tablet [id number] Take 5 mg by mouth in the morning. Historical Provider, Active Past Medical History: Diagnosis Date Abnormal Pap smear of cervix 10/30/20 ascus hpv neg Anemia Autoimmune disease (CMS/HCC) Breast lump Chicken pox History of Liv-Elise virus infection History of thyroid nodule History of tremor Hyperkinetic heart syndrome Hypertension (CMS/HCC) IBS (irritable bowel syndrome) POTS (postural orthostatic tachycardia syndrome) Past Surgical History: Procedure Laterality Date COLONOSCOPY 04/18/2017 normal ([facility]) COLPOSCOPY 05/2018 DILATION AND CURETTAGE OF UTERUS 03/2014 Hysteroscopy with polypectomy, directed D&C using TRUCLEAR Cheney&Nephew morcellator (Dr Blanton) EXPLORATORY LAPAROTOMY 1996 D&C for endometriosis HYSTEROSCOPY W/ POLYPECTOMY 2017 Removal of nebothian cyst, pap smear, Hysteroscopy with polypectomy and visually guided d&c (Dr. Blanton) IR FINE NEEDLE ASPIRATION THYROID 05/2015 MOLE REMOVAL Right cheek Family History Problem Relation Name Age of Onset Breast cancer Father's Sister Physical Exam - General appearance, mentation, extraocular movements, facial strength and movement, hearing, upper and lower extremity strength and tone, sensation to gross testing, coordination, and gait are normal or at baseline unless noted below. General Examination: GENERAL APPEARANCE: alert oriented well developed, well nourished. HEAD: normocephalic atraumatic. EYES: sclera anicteric. EARS: no obvious hearing deficit. SKIN: warm and dry. HEART: regular rate and rhythm. LUNGS: clear to auscultation bilaterally. CHEST: axillary nodes grossly normal. BREASTS: no masses palpable bilaterally, normal nipples bilaterally. ABDOMEN: soft, nontender, nondistended, no masses palpable. BACK: no costovertebral angle tenderness, no obvious scoliosis/kyphosis. FEMALE GENITOURINARY: atrophic vaginal mucosa, cervix absent of lesions, nontender, uterus AV, mobile, ovaries nonpalpable and nontender. EXTREMITIES: no edema. NEUROLOGIC: alert and oriented. PSYCH: cooperative with exam. Diagnoses and all orders for this visit: Encounter for gynecological examination without abnormal finding Screening for malignant neoplasm of cervix - SENDOUT TEST MISCELLANEOUS [facility] Encounter for screening mammogram for breast cancer Thickened endometrium Vaginal dryness Pap, pelvic and breast exam completed. Findings of today's exam discussed with the patient. Continue MSBE. Ca/Vit D recommendations reviewed with the patient. The patient is to contact the office with any changes to her gynecological condition. The patient is to return in 1 year or as needed Discussed previous findings of thickened endometrium on US- no PMB. Has followed with Dr. Blanton in [place] for the past 6 years. Did recommend repeat D&C, hysteroscopy, Mirena insertion- patient not wanting to do this. Will repeat US. Did discuss EMB in office to assess. Advised against estrogen therapy at this time with undiagnosed thickened endometrium. OTC remedies reviewed. ICD-10-CM 1. Encounter for gynecological examination without abnormal finding Z01.419 2. Screening for malignant neoplasm of cervix Z12.4 SENDOUT TEST MISCELLANEOUS [facility] 3. Encounter for screening mammogram for breast cancer Z12.31 4. Thickened endometrium R93.89 5. Vaginal dryness N89.8 documented in this encounter [facility] 01-03-2024 History of Presen t illness Narrative Images from the original note were not included. Subjective Iris Thomason is a 58 y.o. female Chief Complaint Patient presents with Breast Problem Pt complains R breast pain for a few weeks no lump not hot to the touch. History of Present Illness Current Outpatient Medications: Calcium Carb-Cholecalciferol (Calcium 600/Vitamin D3) 600-20 MG-MCG tablet, Take by mouth, Disp: , Rfl: esomeprazole (NexIUM) [address] capsule, Take 20 mg by mouth in the morning. Take before meals. Do not open capsule.., Disp: , Rfl: gabapentin (Neurontin) 100 MG capsule, Take 100 mg by mouth in the morning and 100 mg before bedtime., Disp: , Rfl: loperamide (Imodium A-D) 2 MG tablet, Take 2-4 mg by mouth 4 (four) times a day as needed for diarrhea, Disp: , Rfl: nebivolol (Bystolic) 5 MG tablet, Take 5 mg by mouth in the morning., Disp: , Rfl: Past Medical History: Diagnosis Date Abnormal Pap smear of cervix 10/30/20 ascus hpv neg Anemia Autoimmune disease (CMS/HCC) Breast lump Chicken pox History of Liv-Elise virus infection History of thyroid nodule History of tremor Hyperkinetic heart syndrome Hypertension (CMS/HCC) IBS (irritable bowel syndrome) POTS (postural orthostatic tachycardia syndrome) Past Surgical History: Procedure Laterality Date COLONOSCOPY 04/18/2017 normal ([facility]) COLPOSCOPY 05/2018 DILATION AND CURETTAGE OF UTERUS 03/2014 Hysteroscopy with polypectomy, directed D&C using TRUCLEAR Cheney&Nephew morcellator (Dr Blanton) EXPLORATORY LAPAROTOMY 1996 D&C for endometriosis HYSTEROSCOPY W/ POLYPECTOMY 2017 Removal of nebothian cyst, pap smear, Hysteroscopy with polypectomy and visually guided d&c (Dr. Blanton) IR FINE NEEDLE ASPIRATION THYROID 05/2015 MOLE REMOVAL Right cheek Family History Problem Relation Name Age of Onset Breast cancer Father's Sister OB History Para Term AB Living 4 3 3 0 1 0 SAB IAB Ectopic Multiple Live Births 1 0 0 0 0 # Outcome Date GA Lbr Joseluis/2nd Weight Sex Type Anes PTL Lv 4 Term Vag-Spont Comments: forceps delivery 3 Term Vag-Spont Comments: still born 2 Term Vag-Spont 1 SAB Obstetric Comments Pap 12/21/22- Neg Mammogram 03/23/22- Neg ([facility]) Colonoscopy 04/18/17- normal ([facility]) U/S 08/02/23: endometrial thickness measures 6.4 mm, fibroids, no polyps noted, adenomyosis Review of Systems All negative unless documented in treatment Objective Visit Vitals BP 154/86 Wt 201 lb 12.8 oz LMP (LMP Unknown) BMI 32.08 kg/m OB Status Premenopausal Smoking Status Never BSA 2.07 m Allergies Allergen Reactions Iodinated Contrast Media Other Reaction(s): Other: See Comments, Unknown chest pain , increased HR, increased BP Other Reaction(s): Other: See Comments, Unknown Reaction Amoxicillin-Pot Clavulanate Diarrhea Other Reaction(s): Unknown Azithromycin Other Reaction(s): GI Upset Severe diarrhea Budesonide-Formoterol Fumarate Other Reaction(s): Blood pressure Celecoxib Other Reaction(s): Unknown Cephalexin Other Reaction(s): other, Unknown Cephalosporins Other Reaction(s): Unknown Clavulanic Acid Other Reaction(s): diarrhea Clonidine Other Reaction(s): Spasm Other Reaction(s): eye brown pain, spasms Formoterol Other Reaction(s): blood pressure Levofloxacin Diarrhea Other Reaction(s): Unknown Lorazepam Other Reaction(s): Unknown Methylprednisolone Other Reaction(s): Unknown Metronidazole Diarrhea Other Reaction(s): Unknown Had diarrhea and dizziness and funny feeling in head and arms Morphine Other Reaction(s): Other: See Comments, Unknown CHEST PAIN AND INCREASED BLOOD PRESSURE Oxybutynin Other Reaction(s): other, Unknown Penicillins Other Reaction(s): GI Upset, other Severe diarrhea Rofecoxib Sulfamethoxazole Other Reaction(s): itching Sulfamethoxazole-Trimethoprim Itching Trimethoprim Other Reaction(s): itching Valproic Acid Other Reaction(s): Unknown Wound Dressing Adhesive Other Reaction(s): Other: See Comments blisters Physical Exam Constitutional: Appearance: Normal appearance. Genitourinary: Breasts: Breasts are soft. Right: Normal. No swelling, bleeding, inverted nipple, mass, nipple discharge, skin change, tenderness or breast implant. Left: Normal. No swelling, bleeding, inverted nipple, mass, nipple discharge, skin change, tenderness or breast implant. HENT: Head: Normocephalic and atraumatic. Cardiovascular: Rate and Rhythm: Normal rate and regular rhythm. Heart sounds: Normal heart sounds. Pulmonary: Effort: Pulmonary effort is normal. Breath sounds: Normal breath sounds. Musculoskeletal: Right lower leg: No edema. Left lower leg: No edema. Lymphadenopathy: Upper Body: Right upper body: No supraclavicular or axillary adenopathy. Left upper body: No supraclavicular or axillary adenopathy. Neurological: Mental Status: She is alert and oriented to person, place, and time. Skin: General: Skin is warm and dry. Findings: No rash. Exam conducted with a sales representative groceries present. Procedures ICD-10-CM 1. Breast pain in female N64.4 C/o intermittent shooting breast pain for possibly a few months. Denies any trauma, skin changes or nipple discharge. No new medication or herbals/supplements. Paternal aunt hx breast cancer. Last mammogram 03/2022- benign. Exam essentially normal, no skin changes or masses. Will order screening mammogram. She does admit to back problems, if pain persists will follow up with PCP to evaluate back pain to see if correlates. She is scheduled for her annual exam in Jan. Entered by Jacklyn Kaufman LPN acting as scribe for Dr. Delores Cantor. Signature: Jacklyn Kaufman LPN The documentation recorded by the scribe accurately reflects the service(s) I personally performed and the decisions I made. Signature: Delores Cantor DO Assessment & Plan documented in this encounter [facility] 11-30-2023 Telephone encounter Note Labs are listed in Epic [facility] 11-30-2023 Miscellaneous Notes Labs are listed in Epic Iris is calling Matthew Hall MD today with concern regarding Patient Question and lab results. She is asking [facility] She states that the Thyroid AB was elevated and she wondered if anything should be done about this. Please review and advise. Patient has been identified by name and birthdate. Person calling: self Call patient at: at home [phone] (home) [phone] (cell) Was an appointment scheduled: No Closing statement: Results or non-symptom based questions: Thank you for calling [facility], your call will be returned within the next business day. Leticia Millan documented in this encounter [facility] 11-30-2023 Telephone encounter Note Iris is calling Matthew Hall MD today with concern regarding Patient Question and lab results. She is asking about labs that were sent over from [email or web address] in July. She states that the Thyroid AB was elevated and she wondered if anything should be done about this. Please review and advise. Patient has been identified by name and birthdate. Person calling: self Call patient at: at home [phone] (home) [phone] (cell) Was an appointment scheduled: No Closing statement: Results or non-symptom based questions: Thank you for calling [facility], your call will be returned within the next business day. Leticia Millan [facility] 11-16-2023 Note HNO ID: [id number] Author: LAINEY LINDSEY MD, PhD Service: ? Author Type: Physician Type: Procedures Filed: 11/16/2023 16:23 Note Text: Fine needle aspiration of Thyroid Nodule (November 16, 2023) Referring Physician: Matthew Hall MD Primary Care Physician: Gautam Dill DO Indication: (E04.2) Multiple thyroid nodules (primary encounter diagnosis) Comment: FNA of right lobe thyroid nodule Plan: US THYROID FNA (POC) ENDO USE ONLY, CYTOLOGY NON-SEAM CLOSER Iris Thomason was identified by name and date, acknowledges here to have an FNA of right lobe thyroid nodule performed. Patient on anti-platelet or anticoagulant drugs: No The risks, benefits and anticipated outcomes of the procedure, the risks and benefits of the alternatives to the procedure, and the roles and tasks of the personnel to be involved, were discussed with the patient. UNIVERSAL PROTOCOL / SAFETY CHECKLIST Procedure to be Performed: FNA of right lobe thyroid nodule Sign In: A Moment of CARE was completed. Personnel directly involved with the procedure wore the appropriate PPE (Personal Protective Equipment). Patient/Surrogate Stated/Verified: PATIENT VERIFIED(optional for EMERGENT procedures): Patient name, Date of , Relevant allergies, and The intended procedure Time Out Communication: Intended patient and procedure match the source documents. Consent documented and matches the intended procedure. Relevant labs, photos, and/or imaging studies have been reviewed. Sign Out: SIGN OUT (optional for EMERGENT procedures): All specimen containers correctly labeled. Lainey Lindsey MD, PhD She was positionned in decubitus with the neck in extension. FNA of right lobe thyroid nodule: I used Ice pack to numb the skin overlying the area of the nodule. The skin was prepped in the usual aseptic manner. I performed 3 passes through target nodule using G-25 needles under sonographic guidance. Character of the aspirate: A small drop of blood Afirma sample sent: Yes The patient tolerated the procedure. Complications: No She was told to go the emergency room if there is severe pain or swelling in the neck area. She will be notified of the result by telephone. Follow up:With Dr. Apolinar MD, PhD [facility] 11-16-2023 Procedure note Procedure(s): THYROID RIGHT FINE NEEDLE ASPIRATION Pre-Procedure Diagnose(s): Multiple thyroid nodules Post-Procedure Diagnose(s): Multiple thyroid nodules Fine needle aspiration of Thyroid Nodule (November 16, 2023) Referring Physician: Matthew Hall MD Primary Care Physician: Gautam Dill DO Indication: (E04.2) Multiple thyroid nodules (primary encounter diagnosis) Comment: FNA of right lobe thyroid nodule Plan: US THYROID FNA (POC) ENDO USE ONLY, CYTOLOGY NON-SEAM CLOSER Iris Thomason was identified by name and date, acknowledges here to have an FNA of right lobe thyroid nodule performed. Patient on anti-platelet or anticoagulant drugs: No The risks, benefits and anticipated outcomes of the procedure, the risks and benefits of the alternatives to the procedure, and the roles and tasks of the personnel to be involved, were discussed with the patient. UNIVERSAL PROTOCOL / SAFETY CHECKLIST Procedure to be Performed: FNA of right lobe thyroid nodule Sign In: A Moment of CARE was completed. Personnel directly involved with the procedure wore the appropriate PPE (Personal Protective Equipment). Patient/Surrogate Stated/Verified: PATIENT VERIFIED(optional for EMERGENT procedures): Patient name, Date of , Relevant allergies, and The intended procedure Time Out Communication: Intended patient and procedure match the source documents. Consent documented and matches the intended procedure. Relevant labs, photos, and/or imaging studies have been reviewed. Sign Out: SIGN OUT (optional for EMERGENT procedures): All specimen containers correctly labeled. Lainey Lindsey MD, PhD She was positionned in decubitus with the neck in extension. FNA of right lobe thyroid nodule: I used Ice pack to numb the skin overlying the area of the nodule. The skin was prepped in the usual aseptic manner. I performed 3 passes through target nodule using G-25 needles under sonographic guidance. Character of the aspirate: A small drop of blood Afirma sample sent: Yes The patient tolerated the procedure. Complications: No She was told to go the emergency room if there is severe pain or swelling in the neck area. She will be notified of the result by telephone. Follow up:With Dr. Apolinar MD, PhD [facility] 11-16-2023 Procedure note Procedure(s): THYROID RIGHT FINE NEEDLE ASPIRATION Pre-Procedure Diagnose(s): Multiple thyroid nodules Post-Procedure Diagnose(s): Multiple thyroid nodules Fine needle aspiration of Thyroid Nodule (November 16, 2023) Referring Physician: Matthew Hall MD Primary Care Physician: Gautam Dill DO Indication: (E04.2) Multiple thyroid nodules (primary encounter diagnosis) Comment: FNA of right lobe thyroid nodule Plan: US THYROID FNA (POC) ENDO USE ONLY, CYTOLOGY NON-SEAM CLOSER Iris Thomason was identified by name and date, acknowledges here to have an FNA of right lobe thyroid nodule performed. Patient on anti-platelet or anticoagulant drugs: No The risks, benefits and anticipated outcomes of the procedure, the risks and benefits of the alternatives to the procedure, and the roles and tasks of the personnel to be involved, were discussed with the patient. UNIVERSAL PROTOCOL / SAFETY CHECKLIST Procedure to be Performed: FNA of right lobe thyroid nodule Sign In: A Moment of CARE was completed. Personnel directly involved with the procedure wore the appropriate PPE (Personal Protective Equipment). Patient/Surrogate Stated/Verified: PATIENT VERIFIED(optional for EMERGENT procedures): Patient name, Date of , Relevant allergies, and The intended procedure Time Out Communication: Intended patient and procedure match the source documents. Consent documented and matches the intended procedure. Relevant labs, photos, and/or imaging studies have been reviewed. Sign Out: SIGN OUT (optional for EMERGENT procedures): All specimen containers correctly labeled. Lainey Lindsey MD, PhD She was positionned in decubitus with the neck in extension. FNA of right lobe thyroid nodule: I used Ice pack to numb the skin overlying the area of the nodule. The skin was prepped in the usual aseptic manner. I performed 3 passes through target nodule using G-25 needles under sonographic guidance. Character of the aspirate: A small drop of blood Afirma sample sent: Yes The patient tolerated the procedure. Complications: No She was told to go the emergency room if there is severe pain or swelling in the neck area. She will be notified of the result by telephone. Follow up:With Dr. Apolinar MD, PhD documented in this encounter [facility] 11-16-2023 Nurse Note UNIVERSAL PROTOCOL / SAFETY CHECKLIST Procedure to be Performed: Fine needle aspiration of the Right thyroid nodule. Sign In: A Moment of CARE was completed. Personnel directly involved with the procedure wore the appropriate PPE (Personal Protective Equipment). Patient/Surrogate Stated/Verified: PATIENT VERIFIED(optional for EMERGENT procedures): Patient name, Date of , Relevant allergies, and The intended procedure Time Out Communication: Intended patient and procedure match the source documents. Consent documented and matches the intended procedure. Relevant labs, photos, and/or imaging studies have been reviewed. Correct side/site marked and visible. No medications required for procedure. Fire risk assessed and interventions discussed. No implant(s) inserted. Sign Out: SIGN OUT (optional for EMERGENT procedures): All specimen containers correctly labeled. All instruments, equipment, possible retained foreign bodies accounted for. Post-procedure follow-up management communicated and Plan of Care Visit completed when applicable. Yi Jama MA [facility] 11-16-2023 Nurse Note UNIVERSAL PROTOCOL / SAFETY CHECKLIST Procedure to be Performed: Fine needle aspiration of the Right thyroid nodule. Sign In: A Moment of CARE was completed. Personnel directly involved with the procedure wore the appropriate PPE (Personal Protective Equipment). Patient/Surrogate Stated/Verified: PATIENT VERIFIED(optional for EMERGENT procedures): Patient name, Date of , Relevant allergies, and The intended procedure Time Out Communication: Intended patient and procedure match the source documents. Consent documented and matches the intended procedure. Relevant labs, photos, and/or imaging studies have been reviewed. Correct side/site marked and visible. No medications required for procedure. Fire risk assessed and interventions discussed. No implant(s) inserted. Sign Out: SIGN OUT (optional for EMERGENT procedures): All specimen containers correctly labeled. All instruments, equipment, possible retained foreign bodies accounted for. Post-procedure follow-up management communicated and Plan of Care Visit completed when applicable. Yi Jama MA documented in this encounter [facility] 11-08-2023 Telephone encounter Note Spoke to patient, let her know that another US is not necessary. Patient verbalized understanding. [facility] 11-08-2023 Miscellaneous Notes Spoke to patient, let her know that another US is not necessary. Patient verbalized understanding. Iris is calling Lainey Lindsey MD, PhD today because she last had her US done in April and has canceled her biopsy a few times since then She is scheduled for biopsy next Tuesday but is asking if she needs another regular US at all ? Please advise Patient has been identified by name and birthdate. Duration of symptoms: N/A Person calling: self Call patient at: at home [phone] (home) [phone] (cell) Was an appointment scheduled: No Closing statement: Results or non-symptom based questions: Thank you for calling [facility], your call will be returned within the next business day. Sheeal Haider documented in this encounter [facility] 11-07-2023 Telephone encounter Note Iris is calling Lainey Lindsey MD, PhD today because she last had her US done in April and has canceled her biopsy a few times since then She is scheduled for biopsy next Tuesday but is asking if she needs another regular US at all ? Please advise Patient has been identified by name and birthdate. Duration of symptoms: N/A Person calling: self Call patient at: at home [phone] (home) [phone] (cell) Was an appointment scheduled: No Closing statement: Results or non-symptom based questions: Thank you for calling [facility], your call will be returned within the next business day. Sheela Haider [facility] 10-19-2023 Hospital Discharg e instructions Ambulatory OrdersReferral to Gastroenterology Time Frame: 10/19/23, Location: None Selected [facility] Work Phone: 10-19-2023 Evaluation note Authored October 19, 2023 8:48 am The above note written by CHRISTIANO Soto acting as human recorder, note dictated by Dr. Gautam Dill. [facility] Work Phone: 1(331) 854-522004-03-2024 Miscellaneous Notes* Telephone Encounter - Carla Velasquez RN - 08/10/2023 1:47 PM EDT Called patient to discuss the following message from Dr. Blanton, verified name and : I left a voice message that after I have reviewed, I do not see a contraindication for using Mirenaintrauterine device for her column precaster issue. If she wants to further discuss, should make a virtual visit or office visit. Heather Blanton MD Patient verified she received Dr. Blanton's message and she is going to call to schedule an office visit to discuss further. She has phone number to schedule. Carla Velasquez RN * Telephone Encounter - Yovani Christian RN - 08/09/2023 3:12 PM EDT Called pt and verified name and . Pt explained that she has concerns about the Mirena due to history of neurological issues and a weakened immune system. Pt has read that the hormonal effects ofMirena may possibly affect these systems and effect her hx of POTS, Liv Elise, increased antibodies. Reports that with her Hx of POTS she is concerned about increased fainting while being this med. Also, notes she has been experiencing hot flashes recently after being post menopausal after close to 3 years. Pt informed that the purpose of the Mirena is to assist with endometrial thickening. Pt would like to discuss her concerns in detail and see if there is anything she can try other than the Mirena. Yovani Christian RN August 09, 2023 3:24 PM * Telephone Encounter - Winsome Dangelo - 08/09/2023 12:58 PM EDT Reason for call: other - Provider name: Dr. Blanton Additional comments: pt was just seen and has more questions. She would like give them to me but state she has more questions Recommendation: routed to nurse triage pool Last visit in this department: 05/23/2018 Last distance health visit in this department: 08/08/2023 Heather Blanton MD Next visit in this department: Visit date not found [facility] NoteHNO ID: [id number] Author: HEATHER BLANTON MD Service: ? Author Type: Physician Type: Progress Notes Filed: 08/08/2023 18:09 Note Text: I have communicated my name and active licensure. The patient's identity and physical location were verified at the time of this visit. Either the patient or their legal pharmacy sales representative has been informed of the risks and benefits of -- and alternatives to -- treatment through a remote evaluation and consents to proceed with the evaluation remotely. This is a 58 yo with recurrent endometrial thickening, no vaginal bleeding. Previous hysteroscopic polypectomy DANDC with pathology with proliferative endometrium and endometrial polyp. Referred by Dr. Samantha Thao in [place] In 2018 had hysteroscopy: Surgery/Procedure Date: 04/25/2018 Incision/Procedure Start Time: 10:03 AM Incision Close/Procedure End Time: 10:50 AM Surgeon(s)/Proceduralist(s) and Product Designer(s): Surgeon(s) and Role: * Heather Blanton - Primary * Ariadne (Bob) Suzanna - Resident - Assisting Informed Consent: Informed Consent obtained and on the chart Procedure: Removal of nebothian cyst, pap smear, Hysteroscopy with polypectomy and visually guided dANDc Pre-Op/Pre-Procedure Diagnosis: Postmenopausal bleeding, endometrial biopsy Post-Op/Post-Procedure Diagnosis: Same as pre-op diagnosis Antibiotic: None Procedure Details: Patient was taken to the operating room where the sign-in and time out were completed. General anesthesia was induced and found to be adequate. She was placed in dorsal lithotomy position with her feet in Junior stirrups with careful attention not to hyperflex or hyperextend the knees or hips. SCDs were placed and turned on for DVT prophylaxis. Examination under anesthesia was performed to ascertain the position of the uterus which noted to be anteverted. Patient was prepped and draped in the usual fashion. An open-sided speculum was placed in the patient's vagina with clear visualization of the cervix. The cervix was noted to be friable with bleeding around the cervical. There also was a 5 mm polypoid structure coming from the cervical os at 2 o'clock. This was palpated and was consistent with a Nabothian cyst. It was reptured for clear, glatinous fluid and removed. Given the friability of the cervix, we did a pap smear and ECC which were sent to pathology. The anterior lip of the cervix was grasped with a single tooth tenaculum. Cervix was dilated to 6 mm with Hegar dilator. A 5 mm 0-degree hysteroscope was introduced under direct visualization, and the uterus was distended with normal saline. The hysteroscope was then used for initial survey revealing below findings. A 2 cm endometrial polyp filling half the cavity with a stalk located in the left fundal region was seen. The scope was advanced past the polyp. The endometrial lining was noted to have diffuse, mild thickening. The fallopian tube ostia were visualized bilaterally. At this point, the Cheney-Nephew Morcellating device was advanced through the scope and into the uterine cavity under direct visualization. Attention was turned to the polyp, which was removed entirely. Once the larger polyp was removed, we could see a 5 mm polpy just above the left tubal ostia. Given that the endometrium appeared diffusely thickened, a visually guided dANDc was completed circumferentially covering the reminder of the uterine cavity. We then moved to the fundal polyps. Tissue from the fundus was removed by serially decreasing the fluid pressure to allow for better access to the fundal stalk of the polyp. All tissue was collected and sent to pathology. A final visualization of the endometrial cavity confirmed that all polpys were removed. The hysteroscope was slowly removed fully visualizing the endocervical canal. A small 5 mm polyp was noted in the canal and removed with the Cheney-Nephew morcellator. All instruments were removed from vagina and uterine cavity. A speculum was placed in the vagina confirming that the tenaculum sites were not bleeding. The vaginal canal was irrigated with saline. Sponge, lap, and needle counts were correct times two and the patient was taken to the recovery room with stable vital signs after tolerating the procedure well. Sign-out was completed. Findings: Endometrium: Diffuse mild thickening Polyps: 2 cm polyp with stalk arising from the left fundus spanning half of the endometrial cavity, 5 mm polyp above the left tubal ostia Fibroids: No fibroids Other: None Distention Media: 400 mL LR fluid deficit IV Fluids: 400 mL LR Urine Output: N/A Estimated Blood Loss: 10 mL Specimens: Specimen ID Type Site Comments Sent To path 1 Tissue nabothian cyst Pathology Routine path 2 Tissue ECC Pathology Routine path 3 Tissue EMC, endocervical polyp, endometrial polyp Pathology Routine cyto 1 Brushings PAP Cytology Implantable Devices: None Drains: None Complicati (more content not included)...[facility]04-01-2024 History of Present illness Narrative* Heather Blanton MD - 08/08/2023 5:52 PM EDT Images from the original note were not included. I have communicated my name and active licensure. The patient's identity and physical location wereverified at the time of this visit. Either the patient or their legal pharmacy sales representative has been informed of the risks and benefits of -- and alternatives to -- treatment through a remote evaluation andconsents to proceed with the evaluation remotely. This is a 58 yo with recurrent endometrial thickening, no vaginal bleeding. Previous hysteroscopic polypectomy D&C with pathology with proliferative endometrium and endometrial polyp. Referred by Dr. Samantha Thao in [place] In 2018 had hysteroscopy: Surgery/Procedure Date: 04/25/2018 Incision/Procedure Start Time: 10:03 AM Incision Close/Procedure End Time: 10:50 AM Surgeon(s)/Proceduralist(s) and Product Designer(s): Surgeon(s) and Role: * Heather Blanton - Primary * Ariadne (Res) Suzanna - Resident - Assisting Informed Consent: Informed Consent obtained and on the chart Procedure: Removal of nebothian cyst, pap smear, Hysteroscopy with polypectomy and visually guided d&c Pre-Op/Pre-Procedure Diagnosis: Postmenopausal bleeding, endometrial biopsy Post-Op/Post-Procedure Diagnosis: Same as pre-op diagnosis Antibiotic: None Procedure Details: Patient was taken to the operating room where the sign-in and time out were completed. General anesthesia was induced and found to be adequate. She was placed in dorsal lithotomy position with her feet in Junior stirrups with careful attention not to hyperflex or hyperextend the knees or hips. SCDs were placed and turned on for DVT prophylaxis. Examination under anesthesia was performed to ascertain the position of the uterus which noted to be anteverted. Patient was prepped and draped in the usual fashion. An open-sided speculum was placed in the patient's vagina with clear visualization of the cervix. The cervix was noted to be friable with bleeding around the cervical. There also was a 5 mm polypoid structure coming from the cervical os at 2 o'clock. This was palpated and was consistent with a Nabothian cyst. It was reptured for clear, glatinous fluid and removed. Given the friability of the cervix, we did a pap smear and ECC which were sent to pathology. The anterior lip of the cervix was grasped with a single tooth tenaculum. Cervix was dilated to 6 mm with Hegar dilator. A 5 mm 0-degree hysteroscope was introduced under direct visualization, and the uterus was distended with normal saline. The hysteroscope was then used for initial survey revealing below findings. A 2 cm endometrial polyp filling half the cavity with a stalk located in the leftfundal region was seen. The scope was advanced past the polyp. The endometrial lining was noted to have diffuse, mild thickening. The fallopian tube ostia were visualized bilaterally. At this point, the Cheney-Nephew Morcellating device was advanced through the scope and into the uterine cavity under direct visualization. Attention was turned to the polyp, which was removed entirely. Once the larger polyp was removed, we could see a 5 mm polpy just above the left tubal ostia. Given that the endometrium appeared diffusely thickened, a visually guided d&c was completed circumferentially covering the reminder of the uterine cavity. We then moved to the fundal polyps. Tissue from the fundus was removed by serially decreasing the fluid pressure to allow for better access to the fundal stalk of the polyp. All tissue was collected and sent to pathology. A final visualization of the endometrial cavity confirmed that all polpys were removed. The hysteroscope was slowly removed fully visualizing the endocervical canal. A small 5 mm polyp was noted in the canal and removed with the Cheney-Nephew morcellator. All instruments were removed from vagina and uterine cavity. A speculum was placed in the vagina confirming that the tenaculum sites were not bleeding. The vaginal canal was irrigated with saline. Sponge, lap, and needle counts were correct times two and the patient was taken to the recovery room with stable vital signs after tolerating the procedure well. Sign-out was completed. Findings: Endometrium: Diffuse mild thickening Polyps: 2 cm polyp with stalk arising from the left fundus spanning half of the endometrial cavity,5 mm polyp above the left tubal ostia Fibroids: No fibroids Other: None Distention Media: 400 mL LR fluid deficit IV Fluids: 400 mL LR Urine Output: N/A Estimated Blood Loss: 10 mL Specimens: Specimen ID Type Site Comments Sent To path 1 Tissue nabothian cyst Pathology Routine path 2 Tissue ECC Pathology Routine path 3 Tissue EMC, endocervical polyp, endometrial polyp Pathology Routine cyto 1 Brushings PAP Cytology Implantable Devices: None Drains: None Complications: None A digital sweep of the vaginal canal was performed by the Resident and it was ascertained that noinstruments or other foreign bodies are retained within the cavity. Resident performed the procedure, under direct supervision and the remainder of the procedure was performed by the primary surgeon/proceduralist with assistance. SIGNATURE: Ariadne Briseno MD PATIENT NAME: Iris Thomason DATE: April 25, 2018 TIME: 11:52 AM PAGER/CONTACT #: Cosigned by: Heather Blanton at 04/25/2018 4:55 PM Admission (Discharged) on 04/25/2018 Her pathology: Component CONVERTED FINAL DIAGNOSIS A. Nabothian cyst, biopsy: - Nabothian cyst. B. Endocervix, curettage: - Endocervical tissue with chronic inflammation and squamous metaplasia. C. Endometrium, polyp, polypectomy and curettage: - Fragments of endometrial polyp. See comment. - Scant non-polyp proliferative endometrium. MPN/eeh 04/28/2018 CONVERTED DIAGNOSIS COMMENT Part C. Case was reviewed in consultation with Dr. Yang Durán, who concurs. Vital signs not taken due to telephone vist. Assessment; 58-year-old with recurrent thickening of endometrium about 6 mm. Previously in 2018 underwent hysteroscopic polypectomy D&C with benign polyp and also proliferative endometrium noted. Plans; recommend examination under anesthesia, hysteroscopy polypectomy dilation and curettage and insertion of Mirena intrauterine device due to prior history of thickened endometrium. And also history of proliferative endometrium. Telephone call 8 minutes Heather Blanton MD Cc: Dr. Lola Thao [facility] Miscellaneous Notes* Telephone Encounter - Bekah Fox MA - 07/18/2023 11:56 AM EDT Fax received and placed on Dr Shah's desk. * Telephone Encounter - Tricia Arrington RN - 07/14/2023 4:12 PM EST Pt calls Pts pcp had labs done and asking for fax # Caller was provided [phone] Please await fax with lab results documented [facility] Evaluation note* Encounter Date Diagnosis Assessment Notes Treatment Notes Treatment Clinical Notes Jun, Heart palpitations (ICD-10 - R00.2) Patient does have a history of palpitations but feels they are worsening in frequency. In house EKG today is essentially unchanged from previous. She reports getting a cough when her palpitations are acting up. I strongly recommend she get a visit set up with her delivery consultant to discuss this further. Patient is in agreement. Jun, Hypertension (ICD-10 - I10) Blood pressure is stable upon check in. Refill e-scribed. Jun, History of thyroid nodule (ICD-10 - Z86.39) Thyroid US reviewed briefly with the patient noting four nodules with two that recommend getting a needle biopsy due to the size. I strongly recommended she follow through with ENT as scheduled. Patient voiced understanding and is in agreement. Blood work ordered to monitor. Jun, Weight gain (ICD-10 - R63.5) Weight gain noted today. Encouraged she increase diet and exercise. Jun, Chest pain (ICD-10 - R07.9) Patient reports an ache in her left side chest lasting for only a few seconds that she is unable to fully describe but denies any pressure, tightness, or sharp/stabbing sensations. I advised again that she get a consult set up with her delivery consultant. Jun, Hyperlipidemia (ICD-10 - E78.5) Blood work ordered to update. Jun, Hyperglycemia (ICD-10 - R73.9) Blood work ordered to update. Jun, Vitamin D deficiency (ICD-10 - E55.9) Blood work ordered to update. Jun, Microcytic anemia (ICD-10 - D50.9) Blood work ordered to update. Jun, Autonomic dysfunction (ICD-10 - G90.9) Encouraged she get ahold of the delivery consultant to get a consult set up. Blood work ordered to update. [employer] Other 11-14-2023 Instructions* Patient Instructions* Matthew Hall MD - 03/22/2023 8:49 AM EST Famotidine 20 mg daily before dinner Elevation of head of the bed by about 6 inches Get thyroid ultrasound documented in [facility]11[facility] History of Present illness Narrative* Matthew Hall MD - 03/22/2023 8:14 AM EST ENDOCRINOLOGY REASON FOR CONSULTATION: Thyroid nodules HISTORY Iris Thomason is a 58 year old female who comes in here for evaluation of thyroid nodules. The patient is referred by Self. HPI: Pt has h/o thyroid nodules. She also has h/o POTS. Some trouble swallowing, feeling something specially with foods like meat and bread. She has heartburn and had been prescribed Nexium, which she takes very irregularly, and not in the last several months. Neck pressure symptoms. No H/o exposure to ionizing radiation to the head and neck. No H/o thyroid cancer in one or more first degree relatives. No H/o prior thyroid surgery. No Tremor of hands, head, legs. Palpitations. Episodes of feeling warm for a few minutes over night, not too bad. Irritable bowel, not particularly problematic lately. Per Pt, thyroid tests were done at [facility] within the last year and were OK. Per Dr. Lindsey note form 2016: She reports having h/o Grave's disease diagnosed. Treated with methimazole by [facility] in [place], [place] for sometime. Medication was stopped after achieving disease remission. Sh has several neurologic complains including sensory numbness of her throat and base of tongue, intermittent difficulty swallowing and loss of voice, intermittent tremors and autonomic dysfunction. A thyroid US was done in May 2015 and showed multiple thyroid nodules. Largest of which was about 1.3 cm in right lobe. She saw an ENT specialist and underwent FNA of dominant right lobe thyroid nodule. Path result showed AUS. MGM with goiter. REVIEW OF SYSTEMS: CONSTITUTIONAL: No fevers, chills. No unintended weight loss. HEENT: No frequent or severe headaches. Nasal congestion. EYES: No diplopia. No blurry vision. CARDIOVASCULAR: No chest pain, dyspnea, nor ankle edema. PULMONARY: No dyspnea nor unexplained cough. GASTROINTESTINAL: No frequent heartburn. No significant changes in stool habits. No constipation ordiarrhea. GENITOURINARY: Nocturia average: 1. Urine incontinence w/o effort. NEUROLOGIC: POTS. MUSCULOSKELETAL: No significant joint or muscle pain. No swelling. MENTAL HEALTH: No concerns regarding depression or anxiety. INTEGUMENTARY: No new skin changes (rash, new or changing mole, new growth). 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 Blanton: hysteroscopy, polypectomy LAPS ABD PRTM&OMENTUM DX W/WO SPEC BR/WA SPX 1996 endometriosis PAST SURGICAL HISTORY OF reval implant for heart- inserted and removed PAST SURGICAL HISTORY OF 1995 d&c SKIN BX, 1 LESION facial TOOTH ROOT REMOVAL wisdom teethe removed Social History Tobacco Use Smoking status: Never Smokeless tobacco: Never Substance Use Topics Alcohol use: No Drug use: No FAMILY HISTORY Problem Relation Age of Onset Prostate Cancer Father other (pulmonary embolism [Other]) Mother Current Outpatient Medications Medication Sig ibuprofen (MOTRIN) 600 mg tablet Take 1 tablet by mouth every 6 hours as needed for Pain. Take withfood. gabapentin (NEURONTIN) 100 mg capsule Take 1 capsule by mouth once daily. nebivolol (BYSTOLIC) 5 mg tablet Take 5 mg by mouth once daily. esomeprazole magnesium (NEXIUM ORAL) Take 1 tablet by mouth as needed. (Patient not taking: Reported on 03/22/2023) ferrous sulfate 325 mg (65 mg iron) tablet Take 1 tablet by mouth once daily. (Patient not taking: Reported on 03/22/2023) No current facility-administered medications for this visit. ALLERGIES Allergen Reactions Contrast Dye Other: See Comments chest pain , increased HR, increased BP Azithromycin GI Upset Severe diarrhea Cephalosporins Unknown Flagyl [Metronidazo* Diarrhea Had diarrhea and dizziness and funny feeling in head and arms Morphine Other: See Comments CHEST PAIN AND INCREASED BLOOD PRESSURE Penicillins GI Upset Severe diarrhea Tape [Adhesive Tape* Other: See Comments blisters PHYSICAL EXAM: BP 130/76 (BP Site: Right Arm, BP Position: Sitting, BP Cuff Size: Large Adult) Pulse (!) 56 Ht171.5 cm (5' 7.5 ) Wt 89.8 kg (198 lb) LMP 03/07/2018 (Exact Date) BMI 30.55 kg/m Body mass index is 30.55 kg/m . Appearance: Well appearing, in no acute distress. Obese, not cushingoid HEENT: Anicteric sclerae. Non-injected conjunctivae. EOMI. Neck: Visible goiter. Mild thyromegaly w/o apparent nodules. No lymphadenopathy Heart: RRR. No detectable murmur, gallop, or rub. Lungs: Clear to auscultation. No wheezing, rhonchi or rales. Abdomen: Soft. No tenderness to palpation. Extremities: No deformities, edema, or skin discoloration. Neuro: Alert, speaking coherently. No involuntary motions. Skin: Normal temperature. Normal moisture. No rash . LABS RESULTS: IMAGING: Not recent. ASSESSMENT & PLAN: Iris Thomason is a 58 year old female here for evaluation of thyroid nodules. (E04.2) Multiple thyroid nodules (primary encounter diagnosis) Comment: Pt with apparent h/o Graves' in remission, She saw an ENT specialist and underwent FNA of dominant right lobe thyroid nodule in 2015, with reportedly AUS. She had a repeat thyroid US after that per Dr. Lindsey was stable and Pt was asked to get another one 6 months later. Another US from 07/2016 was found again as showing stable thyroid findings. Then Pt had been lost to f/u. Plan to get a new thyroid US. Plan: US THYROID/PARATHYROID Return to office: TBD Pt's symptoms may be more likely explained by GERD. We discussed about ways to approach this and use of famotidine OTC. Matthew Hall MD [facility]* Encounter Date Diagnosis Assessment Notes Treatment Notes Treatment Clinical Notes Jan, Hypertension (ICD-10 - I10) [employer] Other 09-12-2023 Miscellaneous Notes* Telephone Encounter - Gwen Millan LPN - 01/18/2023 7:08 AM EDT Patient has not been seen by endocrinology since 2015. [facility] message sent informing patient she will need an appointment. * Telephone Encounter - Jaymie Brown - 12/31/2022 1:45 PM EDT Iris Thomason is calling Lainey Lindsey MD, PhD today to request a return call. She is wantingto know what the normal thyroid levels are for TSH and antibodies. She has a few questions. No chief complaint on file. Patient has been identified by name and birthdate. Duration of symptoms: Person calling: self Call patient at: on cell [phone] (home) [phone] (cell) Was an appointment scheduled: Closing statement: Jaymie Brown documented [facility] Evaluation note* Encounter Date Diagnosis Assessment Notes Treatment Notes Treatment Clinical Notes Aug, Hypertension (ICD-10 - I10) [employer] Other [id number] Evaluation note* Encounter Date Diagnosis Assessment Notes Treatment Notes Treatment Clinical Notes Mar, Neutropenia, unspecified type (ICD-10 - D70.9) Neutrophils and Leukocytes have improved upon review of repeat blood work results The patient has had similar occasinal findings in 2014 and 2017. At this time I recommend we repeat blood work in two - three months and if neutrophils continue to be abnormal we will refer to hematology. Mar, Dysuria (ICD-10 - R30.0) The patient complains of dysuria and urinary frequency as well as some sinus congestion and feels achy this morning. I did provide the above oral medication and instuctions that should help with both, advised to take for three days and if symptoms improve she may stop the medication and come in on for a T-dap as she will be leaving for [place] to visit her premature grandchild who is in ICU. Patient encouraged she increase her water intake. [employer] Other 10-24-2022 Evaluation note* Encounter Date Diagnosis Assessment Notes Treatment Notes Treatment Clinical Notes Feb, Hypertension (ICD-10 - I10) [employer] Other 10-11-2022 Evaluation note* Encounter Date Diagnosis Assessment Notes Treatment Notes Treatment Clinical Notes Feb, Microcytic anemia (ICD-10 - D50.9) Feb, Hyperlipidemia (ICD-10 - E78.5) Feb, Vitamin D deficiency , unspecified (ICD-10 - E55.9) Feb, Fatigue (ICD-10 - R53.83) [employer] Other 07-08-2022 NotePROCEDURE: XR TIB_FIB LT 2V HISTORY: Pain ; acute left tobar pain and burning COMPARISON: None. FINDINGS: BONES:No fracture, acute abnormality, or significant arthropathy. SOFT TISSUES:No appreciable soft tissue swelling. EFFUSION:None visible. OTHER: Negative. IMPRESSION: 1. No acute bone abnormality. 2. No radiopaque foreign body or suspicious findings. Electronically authenticated by: FAROOQ VENCES Date: 2021-11-13 13:28[facility]03-30-2022 Evaluation note* Encounter Date Diagnosis Assessment Notes Treatment Notes Treatment Clinical Notes Jul, Hypertension (ICD-10 - I10) [employer] Other 12-15-2021 Evaluation note* Encounter Date Diagnosis Assessment Notes Treatment Notes Treatment Clinical Notes Apr, Otalgia of both ears (ICD-10 - H92.03) The patient reports having pain in both ears but states the right is more painful than the left for the last month. She denies any sore throat but admits to sinus congestion starting last week. She states the pain will occasionally travel up her head on the right side and describes it as a numb/coldness and burning sensation. Upon examination of the bilateral ears, there is no redness, bulging, or abnormalities noted currently. I did suggest she try an oral steroid to see if that relieves her pain though I am only comfortable with giving a short burst due to her POTS. I advised her if she does well with the initial 5 days of prednisone and it helps but the pain comes back, she is to get the refill. Encouraged the patient to restart the Cefdinir for her ear. She is in agreement and voiced understanding. We will continue to monitor. Apr, Palpitations (ICD-10 - R00.2) The patient notices a fluttering/skipping sensation on the left side of her chest lasting for 5-10 seconds at a time stating it is sometimes worse than others. She does have POTS (postural orthostatic tachycardia syndrome) and has previously seen Dr. Prashant Ramirez at [facility] last seeing him 09/2020. She admits she was supposed to get a holter monitor but due to COVID she has been limiting going out in public. In house EKG performed and reviewed with the patient with essentially normal results. Encoruaged the patient to follow with Dr. Ramirez as scheduled. Apr, Recurrent UTI (ICD-10 - N39.0) The patient was started on Cefdinir last week by our office for her ear that she has since stopped under the advisement of Mariana Osborne PA-C per the patient as there may have been some miscommunication with what she was taking the cefdinir for. She is getting an abdomen x-ray and renal ultrasound to check for kidney stones. Currently following [facility] last seeing them yesterday and she was encouraged the patient to follow with urology as scheduled. Apr, Pain in right knee (ICD-10 - M25.561) The patient reports pain in her right knee and has trouble walking at times due to the pain. She states while walking, she feels her knee was shifting. She has gotten adjustments by Dr. Truong, a chiropractor in [place]. Encouraged her to continue with the adjustments as needed. I advised her the oral steroids provided for her ears, should likely help with her knee pain. Apr, Vaccine counseling (ICD-10 - Z71.85) The patient does voice interest in getting the COVID vaccine but has not yet due to sporatic illnesses. I advised her that due to her immune system, she should get either the Moderna or Pfizer vaccine. She is in agreement and voiced understanding. [facility] [employer] Other 08-20-2015 History general Narrative - Reported* Type Description Date Medical History POTS Medical History GERD Medical History Sinus Medical History 12/26/14 EKG Medical History Mammogram bilateral Mar 2014- ne gative Medical History colposcopy @ [facility] 05/2018 Medical History polyp removal 04/2018 Surgical History laprascopy Surgical History implant in chest removed Surgical History appy Surgical History D&C 04/2018 Surgical History Fibroid removal 05/2018 Hospitalization History above [employer] Other evaluation noteNort [facility] Other evaluation noteNo InformationNort [facility] Other evaluation noteNo assessment information available [facility] Work Phone: Evaluation note* Diagnosis Multiple thyroid nodules- Primary Nontoxic multinodular goiter documented [facility] encounter [facility]* Diagnosis Thickened endometrium- Primary Nonspecific (abnormal) findings on radiological and other examination of genitourinary organs documented in this encounter [facility] note* Author Pema Lo [facility] Authored October 19, 2023 8:48 am The above note written by CHRISTIANO Soto acting as human recorder, note dictated by Dr. Gautam Dill. [facility] Work Phone: Evalusresk note* Diagnosis Multiple thyroid nodules- Primary Nontoxic multinodular goiter documented [facility] this encounter [facility]* Diagnosis Multiple thyroid nodules- Primary Nontoxic multinodular goiter [facility]* Diagnosis Onset Date Resolution Status Difficulty swallowing acute GERD (gastroesophageal reflux disease) acute Irritable bowel syndrome with constipation acute [facility] Work Phone: Evaluation note* Diagnosis Breast pain in female Mastodynia Encounter for screening mammogram for malignant neoplasm of breast [facility] Diagnosis Encounter for gynecological examination without abnormal finding- Primary Screening for malignant neoplasm of cervix Screening for malignant neoplasm of the cervix Encounter for screening mammogram for breast cancer Thickened endometrium Nonspecific (abnormal) findings on radiological and other examination of genitourinary organs Vaginal dryness Postmenopausal atrophic vaginitis documented in this encounter [facility]* Diagnosis Pulmonary hypertension, unspecified (HCC)- Primary documented in this encounter [facility]* Diagnosis Thickened endometrium Nonspecific (abnormal) findings on radiological and other examination of genitourinary organs documented in this encounter [facility]* Diagnosis Primary pulmonary hypertension (HCC)- Primary Primary pulmonary hypertension documented [facility] Narrative - ReportedCullowhee [facility] Other Hospital Discharge instructionsAmbulatory Orders* Referral to Gastroenterology Time Frame: 10/19/23, Location: [facility] Diagnostic Procedure Only (Routine) - Authorized Specialty Diagnoses / Procedures Referred By Lupe raza Referred To Contact [facility] Diagnoses Multiple thyroid nodules Procedures US THYROID/PARATHYROID US SOFT TISSUE HEAD & NECK REAL TIME IMGE DOCMatthew Roche MD [address] [address] [place] [address] Referral ID Status Reason Start Date Expiration Date Visits Requested Visits Authorized [id number] Authorized Auto-Generat ed Referral 3 04/20/2024 1 1 [facility] for referral (narrative)* Diagnostic Procedure Only (Routine) - New Request Specialty Diagnoses / Procedures Referred By Lupe t Referred To Contact US IMAGING Diagnoses Multiple thyroid nodules Procedures US THYROID/PARATHYROID US SOFT TISSUE HEAD & NECK REAL TIME IMGE DOCMatthew Roche MD [address] [address] [place] [address] Referral ID Status Reason Start Date Expiration Date Visits Requested Visits Authorized [id number] New Request Auto-Generat ed Referral 11/06/2024 12/23/2024 1 1 [facility] ([facility])* Outpatient Procedure (Routine) - Authorized Specialty Diagnoses / Procedures Referred By Contac t Referred To Contact [facility] Diagnoses Pulmonary hypertension, unspecified (HCC) Procedures ECG COMPLETE ECG ROUTINE ECG W/LEAST 12 LDS W/I&R Lorenzo Lora MD [address] [place] [address] [address] Referral ID Status Reason Start Date Expiration Date Visits Requested Visits Authorized [id number] Authorized Auto-Generat ed Referral 05/11/2024 05/11/2025 1 1 [facility] Summary Purpose Family History Relationship Condition Age at Onset Recorded Date/T annamarie father Malignant neoplasm Unknown Hypertension Unknown Not Specified Heart disease Unknown Relationship Condition Age at Onset Recorded Date/T annamarie father Malignant neoplasm Unknown Hypertension Unknown mother Heart disease Unknown Advance Directives Advance Directive Response Recorded Date/ Time Advance Directives No February 22, 2017 6:29pm Advance Directive Response Recorded Date/ Time Advance Directives No February 22, 2017 5:29pm Documents on File Type Date Recorded Patient Wreath Machine Tender Expl anation Advance Directive(s) 04/17/2018 12:35 PM Documents on File Type Date Recorded Patient Wreath Machine Tender Expl anation Advance Directive(s) 04/17/2018 12:35 PM Chief Complaint and Reason for Visit Chief Complaint E78.5;D50.9;R53.83;D 55.9 Screening Chief Complaint r00.2 r07.9 e78.5 d5 0.9 g90.9 z86.39 Chief Complaint acute only GI proble ms- see message Reason for Visit Diarrhea GERD (gastroesophageal reflux disease) LLQ abdominal pain Pyogenic granuloma RUQ abdominal pain Chief Complaint acute only GI proble ms- see message R19.7 G90.A E78.5 Z86.39 R10.9 R14.0 R10.11 Reason for Visit Diarrhea GERD (gastroesophageal reflux disease) LLQ abdominal pain Pyogenic granuloma RUQ abdominal pain Chief Complaint R10.9 R14.0 R10.11 Refer Gautam Dill, LLQ pain, RUQ pain, diarrhea Reason for Visit Difficulty swallowin g GERD (gastroesophageal reflux disease) Irritable bowel syndrome with constipation Chief Complaint R10.9 R14.0 R10.11 Refer aGutam Dill, LLQ pain, RUQ pain, diarrhea R13.10 K21.9 Reason for Visit Difficulty swallowin g GERD (gastroesophageal reflux disease) Irritable bowel syndrome with constipation Additional Source Comments INFORMATION SOURCE (unrecogn ized section and content) DATE CREATED AUTHOR [facility]/27/2017 [facility] DATE CREATED AUTHOR AUTHOR'S ORGANIZ ATION 10/27/[address] [facility] DATE CREATED AUTHOR AUTHOR'S ORGANIZ ATION 05/16/2021 [facility] DATE CREATED AUTHOR AUTHOR'S ORGANIZ ATION 07/31/2022 [facility] [place] [facility] DATE CREATED AUTHOR AUTHOR'S ORGANIZ ATION 04/07/2024 [facility] DATE CREATED AUTHOR AUTHOR'S ORGANIZ ATION 06/15/2024 [facility] DATE CREATED AUTHOR AUTHOR'S ORGANIZ ATION 06/20/2024 [facility] DATE CREATED AUTHOR AUTHOR'S ORGANIZ ATION 06/24/2024 [facility] REASON FOR VISIT (unrecogniz ed section and content) Reason Comments Patient Question Reason Comments Consult Reason Comments fax # Reason Comments Menstrual Problem Reason Comments Question Reason Comments Thyroid Problem Reason Comments Breast Problem Pt complains R breas t pain for a few weeks no lump not hot to the touch. Reason Comments Gynecologic Exam Pt Seen Dr. Cantor 2023. Pt c/o pain with intercourse, vaginal dryness with intercourse. Denies bowel/bladder concerns. Denies any current breast pain. Had some a couple weeks ago and Seen Dr. Cantor. Denies vaginal bleeding/spotting. Reason Comments Follow-up Pt presents for foll ow up for US results. Pt recently been diagnosed with Pulmonary hypertension. Reason Comments Results Care Teams (unrecognized sec tion and content) Team Status: Inactive Member Role Status Dates Gautam Dill DO Primary Care Provider, Attending Raffi brad Active Team Status: Active Member Role Status Dates Gautam Dill DO Primary Care Provider Active Team Status: Inactive Member Role Status Dates Gautam Dill DO Primary Care Provider Active Referral Self Attending Provider Active Barber Instructor Relationship Specialty Start Date End Date Gautam Dill DO [address] [place] [phone] PCP - General 07/22/03 Barber Instructor Relationship Specialty Start Date End Date Gautam Dill DO [address] [place] [id number] PCP - General 07/22/03 Team Status: Inactive Member Role Status Dates Gautam Dill DO Primary Care Provide r, Attending Provider Active Start: June 23, 2023 End: June 23, 2023 Barber Instructor Relationship Specialty Start Date End Date Gautam Dill DO [address] [place] [id number] PCP - General 07/22/03 Barber Instructor Relationship Specialty Start Date End Date Gautam Dill DO [address] [place] [address] PCP - General 07/22/03 Navneet Thao MD [address] [place] [address] Group Practice Pediatrician 08/05/23 Barber Instructor Relationship Specialty Start Date End Date Gautam Dill DO [address] [place] [id number] PCP - General 07/22/03 Navneet Thao MD [address] [place] [address] Group Practice Pediatrician 08/05/23 Team Status: Inactive Member Role Status Dates Gautam Dill DO Primary Care Provide r, Attending Provider Active Start: October 19, 2023 End: October 19, 2023 Team Status: Active Member Role Status Dates Gautam Dill DO Primary Care Provide r, Attending Provider Active Start: October 19, 2023 Barber Instructor Relationship Specialty Start Date End Date Gautam Dill DO [address] [place] [address] PCP - General 07/22/03 Navneet Thao MD [address] [place] [address] Group Practice Pediatrician 08/05/23 Barber Instructor Relationship Specialty Start Date End Date Gautam Dill DO [address] [place] [address] PCP - General 07/22/03 Navneet Thao MD [address] [facility] [address] [place] [address] Group Practice Pediatrician 08/05/23 Barber Instructor Relationship Specialty Start Date End Date Gautam Dill DO [address] [place] [address] PCP - General 07/22/03 Navneet Thao MD [address] [facility] [address] [place] [address] Group Practice Pediatrician 08/05/23 Team Status: Inactive Member Role Status Dates Gautam Dill DO Primary Care Provide r, Attending Provider, Referring Provider Active Start: November 24, 2023 End: November 24, 2023 Barber Instructor Relationship Specialty Start Date End Date Gautam Dill DO [address] [place] [address] PCP - General 07/22/03 Navneet Thao MD [address] [facility] [address] [place] [address] Group Practice Pediatrician 08/05/23 Team Status: Inactive Member Role Status Dates Gautam Dill DO Primary Care Provider Active Sta rt: February 08, 2024 End: February 08, 2024 Tina Ba Ly , DO Attending Provider Active St art: February 08, 2024 End: February 08, 2024 Team Status: Inactive Member Role Status Dates Gautam Dill DO Primary Care Provider Active Sta rt: February 13, 2024 End: February 13, 2024 Tina L Ly , DO Attending Provider Active St art: February 13, 2024 End: February 13, 2024 Barber Instructor Relationship Specialty Start Date End Date Gautam Dill MD [facility] [place] [address] PCP - General 12/21/22 Barber Instructor Relationship Specialty Start Date End Date Gautam Dill MD [facility] [place] [address] PCP - General 12/21/22 Barber Instructor Relationship Specialty Start Date End Date Gautam Dill MD [facility] [place] [address] PCP - General 12/21/22 Barber Instructor Relationship Specialty Start Date End Date Gautam Dill MD [facility] [place] [address] PCP - General 12/21/22 Barber Instructor Relationship Specialty Start Date End Date Gautam Dill MD [facility] [place] [address] PCP - General 12/21/22 Barber Instructor Relationship Specialty Start Date End Date Gautam Dill DO [address] [place] [address] PCP - General 07/22/03 Navneet Thao MD [address] [place] [address] Group Practice Pediatrician 08/05/23 Barber Instructor Relationship Specialty Start Date End Date Gautam Dill MD [address] [place] [phone] PCP - General 12/21/22 Barber Instructor Relationship Specialty Start Date End Date Gautam Dill DO [facility] [place] [address] PCP - General 07/22/03 Navneet Thao MD [address] [place] [address] Group Practice Pediatrician 08/05/23 Barber Instructor Relationship Specialty Start Date End Date Gautam Dill DO [address] [place] [address] PCP - General 07/22/03 Navneet Thao MD [address] [place] [address] Group Practice Pediatrician 08/05/23 Lorenzo Lora MD [address] [place] [address] Primary Staff Physician Cardiology 2/26/25 Goals (unrecognized section and content) Goals may be documented in a n alternate section Source Comments (unrecognize d section and content) In the event this informatio n is protected by the Federal Confidentiality of Alcohol and Drug Abuse Patient Records regulations: The Federal rules restrict any use of the information to criminally investigate or prosecute any alcohol or drug abuse patient.[facility] the event this information is protected by the Federal Confidentiality of Alcohol and Drug Abuse Patient Records regulations: The Federal rules restrict any use of the information to criminally investigate or prosecute any alcohol or drug abuse patient.[facility] the event this information is protected by the Federal Confidentiality of Alcohol and Drug Abuse Patient Records regulations: The Federal rules restrict any use of the information to criminally investigate or prosecute any alcohol or drug abuse patient.[facility] the event this information is protected by the Federal Confidentiality of Alcohol and Drug Abuse Patient Records regulations: The Federal rules restrict any use of the information to criminally investigate or prosecute any alcohol or drug abuse patient.[facility] the event this information is protected by the Federal Confidentiality of Alcohol and Drug Abuse Patient Records regulations: The Federal rules restrict any use of the information to criminally investigate or prosecute any alcohol or drug abuse patient.[facility] the event this information is protected by the Federal Confidentiality of Alcohol and Drug Abuse Patient Records regulations: The Federal rules restrict any use of the information to criminally investigate or prosecute any alcohol or drug abuse patient.[facility] HospitalIn the event this information is protected by the Federal Confidentiality of Alcohol and Drug Abuse Patient Records regulations: The Federal rules restrict any use of the information to criminally investigate or prosecute any alcohol or drug abuse patient.[facility]In the event this information is protected by the Federal Confidentiality of Alcohol and Drug Abuse Patient Records regulations: The Federal rules restrict any use of the information to criminally investigate or prosecute any alcohol or drug abuse patient.[facility] the event this information is protected by the Federal Confidentiality of Alcohol and Drug Abuse Patient Records regulations: The Federal rules restrict any use of the information to criminally investigate or prosecute any alcohol or drug abuse patient.[facility] the event this information is protected by the Federal Confidentiality of Alcohol and Drug Abuse Patient Records regulations: The Federal rules restrict any use of the information to criminally investigate or prosecute any alcohol or drug abuse patient.[facility] HospitalIn the event this information is protected by the Federal Confidentiality of Alcohol and Drug Abuse Patient Records regulations: The Federal rules restrict any use of the information to criminally investigate or prosecute any alcohol or drug abuse patient.[facility] Hospital[facility] the event this information is protected by the Federal Confidentiality of Alcohol and Drug Abuse Patient Records regulations: The Federal rules restrict any use of the information to criminally investigate or prosecute any alcohol or drug abuse patient.[facility] HospitalIn the event this information is protected by the Federal Confidentiality of Alcohol and Drug Abuse Patient Records regulations: The Federal rules restrict any use of the information to criminally investigate or prosecute any alcohol or drug abuse patient.[facility] FOR RECORDS PERTAINING TO PATIENTS WHO ARE OR HAVE BEEN ENROLLED IN A CHEMICAL DEPENDENCY/SUBSTANCEABUSE PROGRAM, SOME INFORMATION MAY BE OMITTED. This clinical summary was aggregated from multiple sources. Caution should be exercised in using it in the provision of clinical care. This summary normalizes information from multiple sources, and as a consequence, information in this document may materially change the coding, format and clinical context of patient data. In addition, data may be omitted in some cases. CLINICAL DECISIONS SHOULD BE BASED ON THE PRIMARY CLINICAL RECORDS. [facility]. provides no warranty or guarantee of the accuracy or completeness of information in this document.
--- NOTE | 2024-07-06 12:02 | ED_ITS ---
HPI HPI - General Adult General Chief complaint: Recheck/Abnormal Lab/Rx Stated complaint: ABNORMAL LABS Time Seen by Provider: 07/06/24 11:59 Source: patient Mode of arrival: walk-in Limitations: no limitations History of Present Illness HPI narrative: Patient is a 59-year-old female who is presenting to the ER today with chief complaint of elevated potassium of 5.9. Patient is undergoing a slew of testing between [facility], [facility], and now the [facility] fur glosser as well. Patient has been known to have a thickened heart muscle/cardiac wall. Patient is due to have a Holter monitor placed, she had to wait 2 or 3 weeks for insurance to approve this, it has not been placed yet. Patient had a echocardiogram here locally. Patient has additional testing that will be done in [place] coming up in the next week or 2. Patient currently has no chest pain, tightness or pressure. No shortness of breath. Patient has slow speech at baseline, no strokelike signs or symptoms. No abdominal pain nausea or vomiting. All systems are negative except as noted/marked. All systems reviewed and otherwise negative. Nurses note and vital signs reviewed and patient is not hypoxic. General: The patient appears well and in no apparent distress. Patient is resting comfortably on cart. Patient is not toxic, lethargic, or listless Skin: Warm, dry, no pallor noted. There is no rash noted. No petechiae, purpura. Head: Normocephalic, atraumatic Eye: Normal conjunctiva, no drainage, EOMI. PERRL Ears, Nose, Mouth, and Throat: oral mucosa is moist. Nares patent. Mouth without vesicles. Cardiovascular: Regular Rate and Rhythm, no murmur, gallop, rub. Patient has no reproducible tenderness palpation to bilateral anterior, lateral, posterior chest wall. Respiratory: Patient is in no distress, no accessory muscle use, lungs are clear to auscultation, no wheezing, rales or rhonchi Back: non-tender, no CVA tenderness bilaterally to percussion. No CT LS midline pain GI: no tenderness to palpation, no masses appreciated. No rebound, guarding, or rigidity noted. No distention Musculoskeletal: Patient has full range of motion of all of the extremities, no motor, sensory, or focal neurological deficits Neurological: A&O x4, normal speech Psychiatric: Cooperative Related Data Home Medications ?Medication ?Instructions ?Recorded ?Confirmed gabapentin 100 mg capsule 100 mg PO QDAY 07/06/24 07/06/24 nebivolol 5 mg tablet 2.5 mg PO QDAY 07/06/24 07/06/24 Allergies Allergy/AdvReac Type Severity Reaction Status Date / Time Iodinated Contrast Media Allergy Hypertensio Verified 07/06/24 11:38 n latex Allergy Rash Verified 07/06/24 11:38 Opioid HPI Opioid Management Most Recent Opioid Data: No Data to Display PFSH PFSH Social History Little interest or pleasure in doing things: not at all Feeling down, depressed, or hopeless: not at all Exam Constitutional Vital Signs, click to edit/add: Last Vital Signs Pulse 72 07/06/24 12:51 Resp 18 07/06/24 12:51 BP 183/87 H 07/06/24 12:51 Pulse Ox 94 L 07/06/24 12:51 O2 Del Method Room Air 07/06/24 12:51 Course Vital Signs Vital signs: Vital Signs Pulse Rate 80 07/06/24 11:38 Respiratory Rate 16 07/06/24 11:38 Blood Pressure 157/104 H 07/06/24 11:38 Pulse Oximetry 95 07/06/24 11:38 Oxygen Delivery Method Room Air 07/06/24 11:38 Pulse Rate 72 07/06/24 12:51 Respiratory Rate 18 07/06/24 12:51 Blood Pressure 183/87 H 07/06/24 12:51 Pulse Oximetry 94 L 07/06/24 12:51 Oxygen Delivery Method Room Air 07/06/24 12:51 Medical Decision Making [facility] Narrative Medical decision making narrative: Patient potassium was 3.9, she was told there was 5.8 from lab draw on Tuesday. Patient is here with . Patient is undergoing a lot of testing to the [facility] system at this time, concern for pulmonary hypertension. Patient was told she had a potassium 5.8 on Tuesday. She is to come into the ER for evaluation. Patient has no other acute concerns at this time. Lab Data Labs: Lab Results 07/06/24 Range/Units 11:53 WBC 3.9 L (4.0-11.0) 10^3/uL RBC 4.91 (4.20-5.40) 10^6/uL Hgb 14.9 (12.0-16.0) g/dL Hct 44.0 (36.0-48.0) % MCV 89.6 (81.0-99.0) fL MCH 30.3 (26.7-34.0) pg MCHC 33.9 (29.9-35.2) g/dL RDW 13.6 (11.0-15.0) % Plt Count 188 (150-450) 10^3/uL MPV 11.1 (9.5-13.5) fL Neut % (Auto) 56.8 (43.0-75.0) % Lymph % (Auto) 32.2 (20.5-60.0) % [place] % (Auto) 6.1 (1.7-12.0) % Eos % (Auto) 3.8 (0.9-7.0) % Baso % (Auto) 0.8 (0.2-2.0) % Neut # (Auto) 2.2 (1.4-6.5) 10^3/uL Lymph # (Auto) 1.3 (1.2-3.8) 10^3/uL [place] # (Auto) 0.2 L (0.3-0.8) 10^3/uL Eos # (Auto) 0.2 (0.0-0.7) 10^3/uL Baso # (Auto) 0.0 (0.0-0.1) 10^3/uL Abs Immat Gran (auto) 0.01 (0.00-0.03) 10^3/uL Imm/Tot Granulo (auto) 0.3 (0.0-0.5) % Sodium 140 (136-145) mmol/L Potassium 3.9 (3.5-5.1) mmol/L Chloride 106 (98-107) mmol/L Carbon Dioxide 24.0 (21.0-32.0) mmol/L Anion Gap 13.9 BUN 12.0 (7.0-18.0) mg/dL Creatinine 0.89 (0.55-1.02) mg/dL Est GFR ( Amer) >60 (>=60 mL/min/1.73m^2) Est GFR (Non-Af Amer) >60 (>=60 mL/min/1.73m^2) BUN/Creatinine Ratio 13.5 Glucose 102 (74-106) mg/dL Calcium 8.9 (8.5-10.1) mg/dL ECG Data Attestation: I personally reviewed and interpreted this ECG as follows: (EKG interpretation. Normal sinus rhythm at 76 beats a minute. Artifact seen. QTc of 410. No acute ST elevation, no acute ectopy.) Discharge Plan Discharge Chief Complaint: Recheck/Abnormal Lab/Rx Clinical Impression: Palpitations Patient Disposition: Home, Self-Care Time of Disposition Decision: 13:20 Condition: Fair Prescriptions / Home Meds: No Action gabapentin 100 mg capsule 100 mg PO QDAY nebivolol 5 mg tablet 2.5 mg PO QDAY Print Language: Turkmen Instructions: Heart Palpitations (ED), Hyperkalemia (ED) Additional Instructions: Follow-up with PCP at scheduled appointment. Continue to follow-up with your fur glosser from the [facility] as scheduled as well. Call today or Tuesday to follow-up when you can have your Holter monitor placed as well. If you are having any heavy chest pressure, significant shortness of breath, intractable nausea vomiting, or any other acute concerns return back to the ER for further testing. Your potassium level was normal today at 3.9 as discussed. Education was done at bedside on elevated potassium, your potassium level is normal today. Education was given to you on elevated potassium levels for education only, your potassium is normal today Referrals: Gautam Wren DO [Primary Care Provider] - 1 week
[2024-07-06 12:03] VITALS: PULSE 72
[2024-07-06 12:14] LABS: Basophils Percent Auto 0.8 % (0.2-2.0); Eosinophils Absolute Auto 0.2 10^3/uL (0.0-0.7); Eosinophils Percent Auto 3.8 % (0.9-7.0); Hemoglobin 14.9 g/dL (12.0-16.0); Immature Granulocytes Abs Auto 0.01 10^3/uL (0.00-0.03); Immature Granulocytes Pct Auto 0.3 % (0.0-0.5); Lymphocytes Absolute Auto 1.3 10^3/uL (1.2-3.8); Lymphocytes Percent Auto 32.2 % (20.5-60.0); Mean Corpuscular HGB Conc 33.9 g/dL (29.9-35.2); Mean Corpuscular Hemoglobin 30.3 pg (26.7-34.0); Mean Corpuscular Volume 89.6 fL (81.0-99.0); Mean Platelet Volume 11.1 fL (9.5-13.5); Monocytes Absolute Auto 0.2 10^3/uL (0.3-0.8); Monocytes Percent Auto 6.1 % (1.7-12.0); Neutrophils Absolute Auto 2.2 10^3/uL (1.4-6.5); Neutrophils Percent Auto 56.8 % (43.0-75.0); Platelet Count 188 10^3/uL (150-450); Red Blood Count 4.91 10^6/uL (4.20-5.40); Red Cell Distribution Width 13.6 % (11.0-15.0); White Blood Count 3.9 10^3/uL (4.0-11.0)
[2024-07-06 12:19] LABS: Anion Gap 13.9; BUN Creatinine Ratio 13.5; Calcium 8.9 mg/dL (8.5-10.1); Chloride 106 mmol/L (98-107); Estimated GFR (African America >60 (>=60 mL/min/1.73m^2); Estimated GFR (Non-African Ame >60 (>=60 mL/min/1.73m^2); Glucose 102 mg/dL (74-106); Potassium 3.9 mmol/L (3.5-5.1); Sodium 140 mmol/L (136-145)
[2024-07-06 12:51] VITALS: BP 183/87; PULSE 72; O2SAT 94
[2024-07-06 13:31] VITALS: BP 145/77; PULSE 64; O2SAT 98
--- NOTE | 2024-07-06 13:38 | ECG_ITS ---
The [facility] Test Date: 2024-07-06 Pat Name: IRIS THOMASON Department: Room: - Gender: Female [employer]: : 1965 Requested By: Gautam Wren Order Number: [id number] Reading MD: NOLA BURKS Measurements Intervals [place] Rate: 76 P: 43 AL: 132 QRS: 59 QRSD: 84 T: 43 QT: 380 QTc: 410 Interpretive Statements 1100 Sinus rhythm 9110 normal ECG No previous ECG available for comparison Electronically Signed On 07-08-2024 8:05:29 EST by NOLA BURKS
== END 2024-07-06 13:33 | disposition home or self-care (01) ==
PROVIDERS: Emergency Provider Emergency Medicine; PCP Family Medicine
DX: R00.2 Palpitations (principal); R79.89 Other specified abnormal findings of blood chemistry
CPT/HCPCS: 36415; 80048; 85025; 93005; 99284

== ENCOUNTER 2024-10-13 00:49 | Emergency (ER) | payer MEDICARE, SELFPAY ==
--- OUTSIDE RECORDS SUMMARY | 2024-10-03 09:00 | XMS_ITS | Encounter Summary ---
Author Organization [facility] Address [facility] [place] [address] Care Team Providers Care Financial Assistance Advisor Name Role Phone Gautam Wren DO Primary Care Provider [phone] Navneet Hernandez MD Unavailable [phone] Lorenzo Lora MD Unavailable Source Comments In the event this information is protected by the Federal Confidentiality of Alcohol and Drug AbusePatient Records regulations: The Federal rules restrict any use of the information to criminally investigate or prosecute any alcohol or drug abuse patient.[facility] Reason for Referral * Transition of Care (Routine) - Authorized Specialty Diagnoses / Procedures Referred By Contac t Referred To [facility] Diagnoses Palpitations Pulmonary hypertension (HCC) SOB (shortness of breath) Elevated blood pressure reading Chest pain, unspecified type Procedures CARDIOVASCULAR MEDICINE OP FOLLOW UP APPT ORDER Lorenzo Lora MD [address] [place] [address] Phone: tel: fax: [facility] [address] [address] Referral ID Status Reason Start Date Expiration Date Visits Requested Visits Authorized [id number] Authorized PCP Requested Referral 10/03/2024 10/03/2025 1 1 * Consult, Test, Treat (Routine) - Authorized Specialty Diagnoses / Procedures Referred By Lupe raza Referred To Contact Diagnoses Palpitations Pulmonary hypertension (HCC) SOB (shortness of breath) Elevated blood pressure reading Chest pain, unspecified type Procedures CONSULT TO INTERVENTIONAL CARDIOLOGY OFFICE/OUTPATIENT [facility] 60 MINUTES Lorenzo Lora MD [address] [place] [address] Phone: tel: fax: Referral ID Status Reason Start Date Expiration Date Visits Requested Visits Authorized [id number] Authorized PCP Requested Referral 10/03/2024 10/03/2025 1 1 * Consult, Test, Treat (Routine) - Authorized Specialty Diagnoses / Procedures Referred By Lupe raza Referred To Contact Diagnoses Palpitations Pulmonary hypertension (HCC) SOB (shortness of breath) Elevated blood pressure reading Chest pain, unspecified type Procedures CONSULT TO ELECTROPHYSIOLOGY OFFICE/OUTPATIENT [facility] 60 MINUTES Lorenzo Lora MD [address] [place] [address] Phone: tel: fax: Referral ID Status Reason Start Date Expiration Date Visits Requested Visits Authorized [id number] Authorized PCP Requested Referral 10/03/2024 10/03/2025 1 1 Reason for Visit * Reason Comments Follow Up Encounter Details Date Type Department Care Team (Latest Contact Info) Description 10/03/2024 9:00 AM EDT [facility] Cardiology [address] [place] [address] Lorenzo Lora MD [address] [place] [address] Chest pain, unspecified type (Primary Dx); Palpitations; Pulmonary hypertension (HCC); SOB (shortness of breath); Elevated blood pressure reading Social History Tobacco Use Types Packs/Day Years Used Date Smoking Tobacco: Never Smokeless Tobacco: Never Alcohol Use Standard Drinks/Week Comments No 0 (1 standard drink = 0.6 oz pur e alcohol) PHQ-2 Answer Date Recorded PHQ-2 score 0 10/02/2024 Area Deprivation Index Answer Date Noe rded National Score (1-100), lower number is lower ri sk 73 08/08/2023 State Score (1-10), lower number is lower risk 6 08/08/2023 Data from: https://www.neighborhoodatlas.[facility]/. Last address used for calculation [address] 08/08/2023 Comments No Sex and Gender Information Value Date Recorded Sex Assigned at Not on file Legal Sex Female 9:46 AM EST Gender Identity Not on file Sexual Orientation Not on file documented as of this encounter Functional Status * Are you deaf or do you have serious difficulty hearing? Answer Date of Assessment Author No 11/25/2014 2:54 PM EDT Ashwini Stevens MA * Are you blind or do you have serious difficulty seeing, even when wearing glasses? Answer Date of Assessment Author No 11/25/2014 2:54 PM EDT Ashwini Stevens MA * Do you have serious difficulty walking or climbing stairs? Answer Date of Assessment Author No 11/25/2014 2:54 PM EDT Ashwini Stevens MA * Do you have difficulty dressing or bathing? Answer Date of Assessment Author No 11/25/2014 2:54 PM EDT Ashwini Stevens MA * Because of a physical, mental, or emotional condition, do you have difficulty doing errands alone such as visiting a doctor's office or shopping? Answer Date of Assessment Author No 11/25/2014 2:54 PM EDT Ashwini Stevens MA documented as of this encounter Mental Status * Because of a physical, mental, or emotional condition, do you have serious difficulty concentrating, remembering, or making decisions? Answer Entry Date Author No 11/25/2014 2:54 PM EDT Ashwini Stevens MA documented in this encounter Patient Instructions * Patient Instructions* Lorenzo Lora MD - 10/03/2024 9:38 AM EDT - Consult interventional cardiology - Dr Sotero Quan. - Consult POTS clinic - Dr Priyank Coles. - Follow up with us as needed. documented in this encounter Progress Notes * Lorenzo Lora MD - 10/03/2024 9:05 AM EDT [facility] Department of Cardiovascular Medicine VIRTUAL VIDEO VISIT ESTABLISHED OUTPATIENT VISIT SERVICE DATE: 10/03/2024 Patient: Rosita Brown SERVICE TIME: 9:05 AM : 1965 This is a virtual video visit. It required patient-provider interaction for the medical decision making as documented below. Rosita Brown has consented to this video encounter. I have communicated my name and active licensure. The patient's identity and physical location wereverified at the time of this visit. Either the patient or their legal agency service representative has been informed of the risks and benefits of -- and alternatives to -- treatment through a remote evaluation andconsents to proceed with the evaluation remotely. Rosita Brown is a 59 year old female seen for follow up. CHIEF COMPLAINT Follow up HISTORY OF PRESENT ILLNESS We had the pleasure of seeing Ms Brown today in our cardiology clinic. She is a pleasant 59 yo woman with history of pulmonary hypertension, autonomic dysfunction, and graves disease. She is presenting for follow up. Palpitations moderate in intensity, worse when laying, without relieving factors,no associated symptoms, coming several times per week. Prior 3 day holter with nsVT ?, now with PACs. Otherwise, she endorses on/off NYHA class II/III exertional SOB with over exertion, without GERARDO, presyncope, or syncope. Had some chest tingling and stress testing reportedly negative. TTE with mild PH, follow up TTE with normal PA pressures. Is wanting to see new EP at [facility] for POTS. PAST MEDICAL HISTORY Diagnosis Date ??? Autoimmune disease (HCC) autoimmune dysfunction ??? Autonomic dysfunction 04/17/2018 ??? COVID-19 ??? Graves disease resolved, then hypothyroid ??? Hemangioma of vertebral body ??? Hyperkinetic heart syndrome ??? Occasional tremors ??? Orthostatic hypotension POTS ??? Other malaise and fatigue Chronic Fatigue Syndrome per PMH ??? PMH - PAST MEDICAL HISTORY OF epstien elise dx per blood work ??? POTS (postural orthostatic tachycardia syndrome) ??? POTS (postural orthostatic tachycardia syndrome) 04/17/2018 ??? Pulmonary HTN (HCC) PAST SURGICAL HISTORY Procedure Laterality Date ??? APPENDECTOMY as a child ??? HYSTEROSCOPY W/BX ENDO/POLYP 03/22/2014 Dr. Blanton: hysteroscopy, polypectomy LAPS ABD PRTM&OMENTUM DX W/WO SPEC BR/WA SPX 1996 endometriosis ??? PAST SURGICAL HISTORY OF reval implant for heart- inserted and removed ??? PAST SURGICAL HISTORY OF 1995 d&c ??? SKIN BX, 1 LESION facial ??? TOOTH ROOT REMOVAL wisdom teethe removed FAMILY HISTORY Problem Relation Age of Onset ??? Heart Mother ??? Arrythmias Mother afib ??? other (pulmonary embolism [Other]) Mother ??? Prostate Cancer Father ??? Arrythmias Maternal Grandmother afib ??? Heart Failure Maternal Grandmother ??? Sudden Cardiac Paternal Grandfather ??? Heart Attack Paternal Grandfather ??? Arrythmias Maternal Aunt afib ??? Breast Cancer Paternal Aunt Social History Tobacco Use ??? Smoking status: Never ??? Smokeless tobacco: Never Vaping Use ??? Vaping status: Never Used Substance Use Topics ??? Alcohol use: No ??? Drug use: No ALLERGIES Allergen Reactions ??? Contrast Dye Other: See Comments chest pain , increased HR, increased BP ??? Azithromycin GI Upset Severe diarrhea ??? Budesonide-Formoter* Other: See Comments ??? Celecoxib Other: See Comments Other Reaction(s): Unknown ??? Cephalosporins Unknown ??? Clavulanic Acid Diarrhea Other Reaction(s): diarrhea ??? Clonidine Other: See Comments Other Reaction(s): Spasm Other Reaction(s): eye brown pain, spasms Other Reaction(s): Spasm Other Reaction(s): eye brown pain, spasms ??? Flagyl [Metronidazo* Diarrhea Had diarrhea and dizziness and funny feeling in head and arms ??? Latex Other: See Comments ??? Levofloxacin Diarrhea, Other: See Comments Other Reaction(s): Unknown ??? Methylprednisolone GI Upset, Other: See Comments Other Reaction(s): Unknown ??? Morphine Other: See Comments CHEST PAIN AND INCREASED BLOOD PRESSURE ??? Nitrofurantoin Other: See Comments ??? Oxybutynin Other: See Comments Other Reaction(s): other, Unknown ??? Penicillins GI Upset Severe diarrhea ??? Sulfa (Sulfonamide * Itching, Other: See Comments Other Reaction(s): itching ??? Tape [Adhesive Tape* Other: See Comments blisters ??? Trimethoprim Itching Other Reaction(s): itching CURRENT MEDICATIONS ??? Cholecalciferol, Vitamin D3, 50 mcg (2,000 unit) cap Take 2 capsules by mouth once daily. ??? MAGNESIUM GLYCINATE ORAL Take 240 mg by mouth once daily. High absorption ??? mv-min/iron/folic/calcium/vitK (WOMEN'S MULTIVITAMIN ORAL) Take 1 tablet by mouth once daily. ??? acetaminophen (TYLENOL 8 HOUR ORAL) Take by mouth as needed. ??? ibuprofen (MOTRIN) 600 mg tablet Take 1 tablet by mouth every 6 hours as needed for Pain. Take with food. (Patient taking differently: Take 800 mg by mouth every 6 hours as needed for pain.) ??? gabapentin (NEURONTIN) 100 mg capsule Take 1 capsule by mouth once daily. ??? nebivolol (BYSTOLIC) 5 mg tablet Take 2.5 mg by mouth once daily. REVIEW OF SYSTEMS: Answers submitted by the patient for this visit: Review of Systems Heart Failure (Submitted on 10/02/2024) Fever : No Night sweats: No Recent unintentional weight change: No Vision Disturbance: No Hearing Loss: No A cough: No Difficulty Breathing?: No Chest pain: No Leg Swelling: No Skipping or irregular heartbeats?: Yes Feel like passing out?: Yes Black tarry stools: No Nausea: No Diarrhea: No Swelling in your abdomen?: No Fill up quickly when you eat?: Yes Difficulty Urinating?: No Joint pain or stiffness: No Muscle aches: No A rash: No Dizziness: Yes Headaches: Yes PHYSICAL EXAMINATION: VIDEO EXAM: (if completed, performed via video enabled technology) GENERAL: alert and appropriate, in no distress, well-hydrated, well nourished, and happy, smiling, interactive PATIENT ENTERED QUESTIONNAIRE SCORES 10/02/2024 PHQ-9 PHQ-2 Score 0 PHQ-9 Score 6 08/15/2024 PROMIS Global Health - (T-Scores - the mean of general population = 50. Five points is a clinicallymeaningful difference.) Physical T-Score 37.4 Mental T-Score 45.8 07/31 Holter IMPRESSIONS AND FINDINGS: Sinus rhythm with periods of sinus bradycardia. Max HR 115 bpm. Minimum HR 53 Average HR 68 bpm. Rare SVE seen as singles, couplets, triplets and bigeminal cycles. Patient activated event marker correlating with sinus rhythm (HR 60-80 bpm) and PACs. Patient noted symptoms of sqeezing in chest, loss of breath and flutters. Scanned on 08/08/2024 Jennifer ASHLEYBree 07/31 TTE CONCLUSIONS: - Exam indication: PHTN - The left ventricle is normal in size. Left ventricular systolic function is normal. EF = 63 ?? 5% (2D biplane) - The right ventricle is normal in size. Right ventricular systolic function is normal. - Estimated right ventricular systolic pressure is 28 mmHg consistent with normal pulmonary artery pressures. Estimated right atrial pressure is 3 mmHg based on IVC assessment. - There is small pericardial effusion posteriorly to LV and trivial near RA. - Mild 1+ TR. - Exam was compared with the prior echocardiographic exam performed on 02/26/2002 (Stress). There is small pericardial effusion today, otherwise similar resting findings. CXR 07/31 IMPRESSION: 1. There is a questionable nodular opacity seen in the left mid to lower lung, adjacent to the left lateral heart border. This could represent overlap of normal vascular and osseous structures or a pulmonary nodule. Would advise further evaluation with a CT of the chest without contrast to better assess this area. ASSESSMENT AND PLAN (Active Outpatient Problems): Palpitations: ZIO patch with PACs. - Refer to syncope clinic for POT mgmt and PACs mgmt. 2. Pulmonary hypertension: on TTE. - RHC with IC. 3. Elevated blood pressure: in clinic. - On BB. Follow up with PCP. 4. Shortness of breath: on/off. - RHC/LHC with microvascular testing with Dr Quan. - Follow up with PH group/pulmonary. 5. Chest pain: off.on and atypical. - negative stress testing. - I would like her to see Dr Sotero Quan for further opinion. Perhaps performing LHC/RHC with microvascular testing. Lorenzo Lora MD October 03, 2024 9:05 AM Medical Decision Making: Problems: Moderate: 2+ stable chronic illnesses Data: Unique test result(s) reviewed: 3+ Risk: Low: Low risk from testing/treatment Medical Decision Making Level: 4 - Moderate documented in this encounter Plan of Treatment Not on file documented as of this encounter Goals Goal Patient Goal Type Associated Problems Recent Progress Patient-Stated? Author Blood Pressure < 130/80 Blood Pressure 138/72( 025 2:26 PM EDT) No Lorenzo Lora MD documented as of this encounter Visit Diagnoses Diagnosis Chest pain, unspecified type- Primary Palpitations Pulmonary hypertension (HCC) Other chronic pulmonary heart diseases SOB (shortness of breath) Shortness of breath Elevated blood pressure reading Elevated blood pressure reading without diagnosis of hypertension documented in this encounter Care Teams Financial Assistance Advisor Relationship Specialty Start Date End Date Gautam Wren DO [address] [place] [address] PCP - General 07/22/03 Navneet Hernandez MD [address] [facility] [address] [place] [address] Glass Etcher 08/05/23 Lorenzo Lora MD [address] [place] [address] Primary Staff Physician Cardiology 07/04/24 documented as of this encounter
--- OUTSIDE RECORDS SUMMARY | 2024-10-05 11:30 | XMS_ITS | Encounter Summary ---
Author Organization [facility] Address [facility] [place] [address] Care Team Providers Care Transportation Manager Name Role Phone Gautam Wren DO Primary Care Provider [phone] Navneet Hernandez MD Unavailable [phone] Lorenzo Lora MD Unavailable Source Comments In the event this information is protected by the Federal Confidentiality of Alcohol and Drug AbusePatient Records regulations: The Federal rules restrict any use of the information to criminally investigate or prosecute any alcohol or drug abuse patient.[facility] Reason for Referral * MRI/CT (Routine) - Closed Specialty Diagnoses / Procedures Referred By Lupe raza Referred To Contact CT IMAGING Diagnoses Lung nodules Procedures CT CHEST WO IVCON DIAGNOSTIC COMPUTED TOMOGRAPHY THORAX W/O CNTRST Kaity Granado APRN.CNP [address] [place] [address] Phone: tel: fax: [place] [phone] Referral ID Status Reason Start Date Expiration Date V isits Requested Visits Authorized [id number] Closed Auto-Generate d Referral 09/25/2024 11/24/2024 1 1 Reason for Visit * MRI/CT (Routine) - Closed Specialty Diagnoses / Procedures Referred By Lupe raza Referred To Contact CT IMAGING Diagnoses Lung nodules Procedures CT CHEST WO IVCON DIAGNOSTIC COMPUTED TOMOGRAPHY THORAX W/O CNTRST Kaity Granado, ELASTIC YARN TWISTER HELPER.ENVIRONMENTAL TECHNICIAN [address] [place] [address] Phone: tel: fax: [place] [address] Referral ID Status Reason Start Date Expiration Date V isits Requested Visits Authorized [id number] Closed Auto-Generate d Referral 09/25/2024 11/24/2024 1 1 Encounter Details Date Type Department Care Team (Latest Contact Info) Description 10/05/2024 11:30 AM EDT - 10/05/2024 11:59 PM EDT Hospital Encounter Radiology Ct Scan [address] [place] [address] Lung nodules [R91.8] Discharge Disposition: Home Social History Tobacco Use Types Packs/Day Years [...] is lower risk 6 08/08/2023 Data from: https://www.neighborhoodatlas.medicine.[facility].edu/. Last address used for calculation [address] 08/08/2023 Comments No Sex and Gender Information [...] Ashwini Stevens MA documented in this encounter Medications at Time of Discharge Cholecalciferol, Vitamin D3, 50 mcg (2,000 unit) cap Take 2 capsules by mouth once daily. 09/27/2023 MAGNESIUM GLYCINATE ORAL Take 240 mg by mouth once daily. High absorption mv-min/iron/folic/ calcium/vitK (WOMEN'S MULTIVITAMIN ORAL) Take 1 tablet by mouth once daily. acetaminophen (TYLENOL 8 HOUR ORAL) Take by mouth as needed. gabapentin (NEURONTIN) 100 mg capsule Take 1 capsule by mouth once daily. 12/24/2015 nebivolol (BYSTOLIC) 5 mg tabletIndications: Thickened endometrium,Heavy menses Take 2.5 mg by mouth once daily. documented as of this encounter Plan of Treatment Not on file documented as of this encounter Goals Goal Patient Goal Type Associated Problems Recent Progress Patient-Stated? Author Blood Pressure < 130/80 Blood Pressure 138/72( 025 2:26 PM EDT) No Lorenzo Lora MD documented as of this encounter Procedures Procedure Name Priority Date/Time Associated Diagnosis Comments CT CHEST WO IVCON Routine 10/05/2024 11: 48 AM EDT Lung nodules documented in this encounter Results * (ABNORMAL) CT CHEST WO IVCON (10/05/2024 11:48 AM EDT) [facility] Radiology Result ACTIONABLE (Actionabl e) DIVISION OF RADIOLOGY Comment: This report contains an incidental or actionable finding. This finding may be a new finding separate from the reason your provider ordered the imaging test or it may be an already known finding that needs additional or continued follow-up. Because of this incidental or actionable finding, you may need another test (imaging or a different type of test). Please contact your provider for the next steps. Anatomical Region Laterality Modality Chest Computed Tomogra phy 10/05/2024 11:4 8 AM EDT Impressions 10/05/2024 3:02 PM EDT IMPRESSION: Linear band of atelectasis or scarring in the lingula corresponds to finding on prior chest radiograph. A few scattered indeterminate pulmonary nodules measuring up to 4 mm. Incidental Finding: Follow-up Acuity: Incidental Finding: Solid: <6 mm (solitary or multiple) Routing Code: N/A Recommendation: No imaging follow-up is recommended Time Frame: N/A Comments: If there are risk factors for lung malignancy, a follow-up chest CT exam could be obtained in 12 months --END OF FINDING-- Tool Maker: [place] Transcribe Date/Time: Oct 05 2024 2:52P Dictated by : NITESH PAYNE MD This examination was interpreted and the report reviewed and electronically signed by: NITESH PAYNE MD on Oct 05 2024 2:59PM EST Narrative 10/05/2024 3:02 PM EDT * * *Final Report* * * DATE OF EXAM: Oct 05 2024 11:48AM [facility] 0541 - CT CHEST WO IVCON / PROCEDURE REASON: Lung nodules * * * * Physician Interpretation * * * * EXAMINATION: CHEST CT WITHOUT CONTRAST CLINICAL HISTORY: Lung nodules lung nodules Technique: Spiral CT acquisition of the chest from the thoracic inlet to the upper abdomen without contrast. MQ: CTCWOR_4 CT Dose-Length Product: 340 mGy*cm CT Dose Reduction Employed: mAs-kVp adjusted based on patient size-age Comparison: Chest radiograph 07/31/2024 RESULT: Lines, tubes, and devices: None. Lung parenchyma and airways: Trachea and central airways are patent. Linear band of atelectasis or scarring in the lingula corresponds to the abnormality on prior chest radiograph. 3 mm subpleural right middle lobe nodule ( image 110). 4 mm nodule right upper lobe (image 70). 2 mm nodule left lower lobe (image 91). Pleural space: No pleural effusion or pneumothorax. Lower neck, lymph nodes, and mediastinum: No axillary, supraclavicular, mediastinal or hilar lymphadenopathy by CT size criteria. Heart, pericardium, and thoracic vessels: The heart is normal in size. No pericardial effusion. The thoracic aorta and main pulmonary artery are normal in caliber. Bones/Soft Tissues: No aggressive osseous lesions. Upper abdomen: Punctate right renal calculus. Ice Skater (topogram) images: Unremarkable. Procedure Note Provider, [facility] [place] - 10/05/2024 * * *Final Report* * * DATE OF EXAM: Oct 05 2024 11:48AM [facility] 0541 - CT CHEST WO IVCON / PROCEDURE REASON: Lung nodules * * * * Physician Interpretation * * * * EXAMINATION: CHEST CT WITHOUT CONTRAST CLINICAL HISTORY: Lung nodules lung nodules Technique: Spiral CT acquisition of the chest from the thoracic inlet to the upper abdomen without contrast. MQ: CTCWOR_4 CT Dose-Length Product: 340 mGy*cm CT Dose Reduction Employed: mAs-kVp adjusted based on patient size-age Comparison: Chest radiograph 07/31/2024 RESULT: Lines, tubes, and devices: None. Lung parenchyma and airways: Trachea and central airways are patent. Linear band of atelectasis or scarring in the lingula corresponds to the abnormality on prior chest radiograph. 3 mm subpleural right middle lobe nodule ( image 110). 4 mm nodule right upper lobe (image 70). 2 mm nodule left lower lobe (image 91). Pleural space: No pleural effusion or pneumothorax. Lower neck, lymph nodes, and mediastinum: No axillary, supraclavicular, mediastinal or hilar lymphadenopathy by CT size criteria. Heart, pericardium, and thoracic vessels: The heart is normal in size. No pericardial effusion. The thoracic aorta and main pulmonary artery are normal in caliber. Bones/Soft Tissues: No aggressive osseous lesions. Upper abdomen: Punctate right renal calculus. Ice Skater (topogram) images: Unremarkable. IMPRESSION IMPRESSION: Linear band of atelectasis or scarring in the lingula corresponds to finding on prior chest radiograph. A few scattered indeterminate pulmonary nodules measuring up to 4 mm. Incidental Finding: Follow-up Acuity: Incidental Finding: Solid: <6 mm (solitary or multiple) Routing Code: N/A Recommendation: No imaging follow-up is recommended Time Frame: N/A Comments: If there are risk factors for lung malignancy, a follow-up chest CT exam could be obtained in 12 months --END OF FINDING-- Tool Maker: [place] Transcribe Date/Time: Oct 05 2024 2:52P Dictated by : NITESH PAYNE MD This examination was interpreted and the report reviewed and electronically signed by: NITESH PAYNE MD on Oct 05 2024 2:59PM EST us Kaity Granado ELASTIC YARN TWISTER HELPER.ENVIRONMENTAL TECHNICIAN CT-PAMA Final R esult documented in this encounter Visit Diagnoses Diagnosis Lung nodules Other nonspecific abnormal finding of lung field documented in this encounter Care Teams Transportation Manager Relationship Specialty Start Date End Date Gautam Wren DO [address] [place] [address] PCP - General 07/22/03 Navneet Hernandez MD [address] [place] [address] Recording Studio Internship 08/05/23 Lorenzo Lora MD [address] [place], [place] [id number] Primary Staff Physician Cardiology 07/04/24 documented as of this encounter
--- OUTSIDE RECORDS SUMMARY | 2024-10-05 12:30 | XMS_ITS | Encounter Summary ---
Author Organization [facility] Address [facility] [place] [address] Care Team Providers Care Clinical Documentation Spec Name Role Phone Gautam Wren DO Primary Care Provider [phone] Navneet Hernandez MD Unavailable [phone] Lorenzo Lora MD Unavailable Source Comments In the event this information is protected by the Federal Confidentiality of Alcohol and Drug AbusePatient Records regulations: The Federal rules restrict any use of the information to criminally investigate or prosecute any alcohol or drug abuse patient.[facility] Reason for Visit * Reason Comments Established Patient Lung Nodules Encounter Details Date Type Department Care Team (Late st Contact Info) Description 10/05/2024 12:30 PM EDT Office Visit Pulm [place] [facility] [address] [place], [place] [id number] Kaity Granado, REGULATORY PRODUCT MANAGER.[address] [address] Lung nodules (Primary Dx) Social History Tobacco Use Types Packs/Day Years [...] is lower risk 6 08/08/2023 Data from: https://www.neighborhoodatlas.[facility]/. Last address used for calculation [address] 08/08/2023 Comments No Sex and Gender Information Value Date Recorded Sex Assigned at Not on file Legal Sex Female 9:46 AM EST Gender Identity Not on file Sexual Orientation Not on file documented as of this encounter Last Filed Vital Signs Vital Sign Reading Time Taken Comments Blood Pressure 152/85 10/05/2024 12:31 PM EDT Pulse 62 10/05/2024 12:31 PM EDT Temperature - - Respiratory Rate - - Oxygen Saturation 99% 10/05/2024 12:28 PM EDT Inhaled Oxygen Concentration - - Weight 88 kg (194 lb 0.1 oz) 10/05/2024 12:28 PM EDT Height - - Body Mass Index 30.84 07/04/2024 3:28 PM EST documented in this encounter Functional Status * Are you [...] this encounter Patient Instructions * Patient Instructions* Kaity Granado, REGULATORY PRODUCT MANAGER.DEFECT CUTTER - 10/05/2024 12:59 PM EDT Images from the original note were not included. We reviewed your recent imaging results: - A small, 2-millimeter nodule was identified in your right lung. This is not concerning and does not require follow-up, as it is too small to cause symptoms or represent anything worrisome. - In your left lung, there is an area along the heart border that appears nodular but is likely dueto atelectasis (a condition where small air sacs in the lung collapse or are compressed) or scarring. This is not concerning but will be monitored to ensure there are no changes. We discussed the next steps for monitoring your lung findings: - I have ordered a follow-up CT scan of your chest in 3 months to reassess the area in your left lung. If the radiologist determines this is atelectasis or scarring, I will notify you, and no furtherfollow-up will be needed. If the radiologist recommends monitoring, we will proceed with the 3-month scan as planned. - You do not need to take any specific action at this time. I will contact you once the radiologistfinalizes their report. Your care plan includes: - A follow-up CT scan in 3 months (pending the radiologist's final report). - No additional treatments or medications are needed at this time. If you have any questions or concerns before your next visit, please feel free to reach out to our office. Frequently Asked Questions: How common are lung nodules? Nodules are found in up to half of adults who get a chest x-ray or CT scan. Do nodules cause any symptoms? In general, small nodules don???t cause any noticeable problems. They???re too small to cause pain or breathing problems. Should I worry that I have a nodule? Most nodules are not cancer, but for a small number of people the nodule may glove turner and former to be an early cancer. Your doctor can tell if your nodule is lung cancer by: Seeing how it looks on the CT scan. Seeing whether it grows over time. A nodule that grows larger over time is a sign that it could be a cancer. Taking a sample of the nodule with a needle or surgery. Most people with a nodule will NOT need to have this test. What is the chance that the nodule is an early lung cancer? Fewer than 5% of all nodules glove turner and former to be cancer What if my nodule is lung cancer? Even if a nodule turns out to be lung cancer, it is likely to be an early stage lung cancer. Peoplewith early stage lung cancer that is treated are less likely to than people who are diagnosed at a later stage when the cancer has started to cause symptoms. What will happen next? Your healthcare team will probably recommend getting more CT scans to keep a close eye on the nodule to see if it changes. We call this ???active surveillance.?? ? If a nodule is not cancer, it usually won???t grow. If the nodule doesn???t grow over a 2-year period, it is very unlikely to be cancer. Most of the time, it is safe to stop watching nodules if there is no growth over a 2-year period. ? On the other hand, if the nodule is getting bigger, it should be looked at more closely to see ifit is lung cancer. Nodules can be viewed more closely using different radiology studies or by biopsy (using a needle or surgery to take a sample of the nodule to look at under a microscope). Your healthcare team will determine which is best for you. Why shouldn???t I get a biopsy now? ? A biopsy means removing a piece of your lung in order to look at it under a microscope. Biopsies are usually not recommended when nodules are small because it is very difficult to biopsy them safely. ? Doing a biopsy when a nodule is small can cause harm such as collapse of the lung, bleeding, or infection. Is it really safe to wait for the next CT scan? Most cancers grow fairly slowly, and it takes several months for them to get bigger. So even if thenodule is lung cancer, it will likely still be small in a few months. Even if the nodule is lung cancer that is growing, there is a very good chance that surgery or radiation will cure you. Waiting a few months for the next CT scan is very safe and should not affect the treatment you receive or your chances for cure if the nodule turns out to be cancer. How does my clinician decide when to do the next CT scan? There are several guidelines for how to decide when to get the next CT scan. These guidelines are based on the chance the nodule is lung cancer and how big the nodule might be at the time of the next scan. Your healthcare provider will determine the best time for your next CT scan based on these guidelines. Your healthcare provider may choose to discuss the CT results with other specialists to determine the best plan for you. What if I???m am still smoking cigarettes? Quitting now will decrease your chance of getting lung cancer in the future, as well as many other serious health problems like emphysema and heart disease. Some people think that if they already have lung cancer, they might as well keep smoking. THAT IS WRONG. ATS Patient Education Series ?? 2016 [employer] Lung Nodule Clinic [facility] [address] [place] [address] [address] [place] [id number] F: Specialist Providers: Chelsea Lester PA-C; Pema Martin CNP; Tasha Ho CNP, Sanjuana Voss CNP; Michelle Lam CNP; KARLEE Anglin; Angela Ro CNP; Linda Goff; Cherelle Gutierrez CNP; Jessie Verdugo CNP; Keiko Ott PA-C; Genet Titus PA-C; Kelsi Carter CNP; Corinne Douglas CNP; Carla Smith CNP; Kaity Granado CNP documented in this encounter Progress Notes * Kaity Granado APRN.CNP - 10/05/2024 12:15 PM EDT Images from the original note were not included. [facility] INCIDENTAL LUNG NODULE PROGRAM (Follow Up) Impression / Recommendations 1. Lung Nodules: Patient is a 59-year-old female never smoker with no personal history of malignancy and no family history of lung cancer. Exposures include radon gas in their home in the past. Dedicated CT chest performed earlier today showed multiple small lung nodules, the largest measuring up to 4 mm in the right upper lung. The linear band of atelectasis vs scarring in the lingula adjacent to the left lateral heart border correlates with the questionable nodule noted on the initial chest x-ray. Given the patients minimal risk factors and small size of these lung nodules, no further follow-up with the incidental lung nodule clinic is recommended per current guidelines. This recommendation is subject to change, pending final radiology report. Nature of the lung nodule(s) and the options for further evaluation discussed in detail with patient. Rosita Brown expressed understanding and is in agreement with plan. Follow Up Diagnosis: Lung Nodule Recommendation: CT Scan Enrolled in Lung Nodule program: Completed Lung Nodule Program Location: [facility] History of Present Illness Rosita Brown is a 59 year old female No history of tobacco abuse with a pertinent past medical history significant for hypothyroidism, POTS, chronic fatigue syndrome, hyperkinetic heart syndrome,pulm HTN, benign thyroid nodules, autonomic dysfunction, palpitations who is being seen as a followup for evaluation of a lung nodule(s). Patient initially presented to nodule clinic on 08/16/24 after CXR performed on 07/31/24 for the indication of chronic cough and pulm HTN incidentally identified 1 nodule. The nodule of greatest concern is a questionable nodular opacity with a Irregular border in the Left lower lobe of the lung, adjacent to the left lateral heart border. Radiology felt that this finding could represent overlap of normal vascular and osseous structures or a pulmonary nodule. Prior imaging: (None). Patient underwent dedicated CT chest earlier today for review. Today: Respiratory symptoms include: SOB: Yes, mild with exertion -unchanged Chest tightness: No Coughing: No Hemoptysis: No Wheezing: No Fever/Chills: No Recent Respiratory Infection: No Unintentional weight loss: No Last 6 Encounter Wt Readings: Date: Wt: 07/04/2024 88.6 kg (195 lb 6.4 oz) 03/22/2023 89.8 kg (198 lb) 05/23/2018 90.7 kg (200 lb) 04/17/2018 88.5 kg (195 lb) 04/17/2018 90.3 kg (199 lb 1.2 oz) 04/17/2018 90.3 kg (199 lb) Current respiratory medication: None Established with a pulmonary medicine provider: No Lung Nodule Risk Factors: Tobacco Use: Never Does the patient have a prior history malignancy? No Does the patient have a family history of lung cancer? No Does the patient have COPD/Emphysema? No Significant exposures (1 year or more of exposure): Radon. Passive smoke: No Recent travel history: No Bird/bat exposure: No ECOG PERFORMANCE STATUS: 1- Restricted in physically strenuous activity. Carries out light duty. - 2/2 fatigue Modified Medical [employer] [place] Dyspnea Scale (MMRC) I get short of breath when hurrying on level ground or walking up a slight hill 1 Family Hx: FAMILY HISTORY Problem Relation Age of Onset Heart Mother Arrythmias Mother afib other (pulmonary embolism [Other]) Mother Prostate Cancer Father Arrythmias Maternal Grandmother afib Heart Failure Maternal Grandmother Sudden Cardiac Paternal Grandfather Heart Attack Paternal Grandfather Arrythmias Maternal Aunt afib Breast Cancer Paternal Aunt Past Medical History: PAST MEDICAL HISTORY Diagnosis Date Autoimmune disease (HCC) autoimmune dysfunction Autonomic dysfunction 04/17/2018 COVID-19 Graves disease resolved, then hypothyroid Hemangioma of vertebral body Hyperkinetic heart syndrome Occasional tremors Orthostatic hypotension POTS Other malaise and fatigue Chronic Fatigue Syndrome per PMH PMH - PAST MEDICAL HISTORY OF epstien elise dx per blood work POTS (postural orthostatic tachycardia syndrome) POTS (postural orthostatic tachycardia syndrome) 04/17/2018 Pulmonary HTN (HCC) Surgical Hx: PAST SURGICAL HISTORY Procedure Laterality Date APPENDECTOMY as a child HYSTEROSCOPY W/BX ENDO/POLYP 03/22/2014 Dr. Blanton: hysteroscopy, polypectomy LAPS ABD PRTM&OMENTUM DX W/WO SPEC BR/WA SPX 1996 endometriosis PAST SURGICAL HISTORY OF reval implant for heart- inserted and removed PAST SURGICAL HISTORY OF 1995 d&c SKIN BX, 1 LESION facial TOOTH ROOT REMOVAL wisdom teethe removed Allergies: ALLERGIES Allergen Reactions Contrast Dye Other: See Comments chest pain , increased HR, increased BP Azithromycin GI Upset Severe diarrhea Budesonide-Formoter* Other: See Comments Celecoxib Other: See Comments Other Reaction(s): Unknown Cephalosporins Unknown Clavulanic Acid Diarrhea Other Reaction(s): diarrhea Clonidine Other: See Comments Other Reaction(s): Spasm Other Reaction(s): eye brown pain, spasms Other Reaction(s): Spasm Other Reaction(s): eye brown pain, spasms Flagyl [Metronidazo* Diarrhea Had diarrhea and dizziness and funny feeling in head and arms Latex Other: See Comments Levofloxacin Diarrhea, Other: See Comments Other Reaction(s): Unknown Methylprednisolone GI Upset, Other: See Comments Other Reaction(s): Unknown Morphine Other: See Comments CHEST PAIN AND INCREASED BLOOD PRESSURE Nitrofurantoin Other: See Comments Oxybutynin Other: See Comments Other Reaction(s): other, Unknown Penicillins GI Upset Severe diarrhea Sulfa (Sulfonamide * Itching, Other: See Comments Other Reaction(s): itching Tape [Adhesive Tape* Other: See Comments blisters Trimethoprim Itching Other Reaction(s): itching Social History Social History Tobacco Use Smoking status: Never Smokeless tobacco: Never Vaping Use Vaping status: Never Used Substance Use Topics Alcohol use: No Drug use: No REVIEW OF SYSTEMS: Negative aside from what is noted in HPI. Physical Exam BP 152/85 Pulse 62 Wt 88 kg (194 lb 0.1 oz) LMP 03/07/2018 (Exact Date) SpO2 99% BMI 30.84 kg/m?? General Appearance: Alert and oriented. No acute distress. HEENT: NCAT. Sclera anicteric. EOMI. Chest: No respiratory distress on RA. Heart: HRR Musculoskeletal: Adequate capillary refill. No digital clubbing. No edema. Neuro: Speech fluent. Gait normal. No obvious focal deficits. Diagnostic Data I have personally reviewed and confirmed the imaging findings. CT imaging done today was reviewed independently by practitioner and awaiting radiology review. Last CT/CTA Chest/Lungs CT CHEST WO IVCON Exam End: 10/05/2024 11:48 AM (In process) Last CT Chest - Impression Only CT CHEST WO IVCON Exam End: 10/05/2024 11:48 AM (In process) Last XR Chest - Impression Only XR CHEST 2V FRONTAL/LAT Exam End: 07/31/2024 1:23 PM (Final result) Impression: IMPRESSION: 1. There is a questionable nodular opacity seen in the left mid to lower lung, adjacent to the left lateral heart border. This could represent overlap of normal vascular and osseous structures or a pulmonary nodule. Would advise further evaluation with a CT of the chest without contrast to better assess this area. ACTIONABLE RESULT: FOLLOW-UP... Pulmonary Function Testing: No textual results found for the specified procedure(s). No data to display Assessment / Plan To optimize physician communication via the electronic health record, the Assessment & Plan section has been placed at the beginning of this note. Kaity Granado APRN.CNP Pulmonary & Critical Care Medicine [facility] [place] October 05, 2024 12:16 PM CC: Gautam Wren DO documented in this encounter Plan of Treatment Not on file documented as of this encounter Goals Goal Patient Goal Type Associated Problems Recent Progress Patient-Stated? Author Blood Pressure < 130/80 Blood Pressure 138/72( 025 2:26 PM EDT) No Lorenzo Lora MD documented as of this encounter Visit Diagnoses Diagnosis Lung nodules- Primary Other nonspecific abnormal finding of lung field documented in this encounter Care Teams Clinical Documentation Spec Relationship Specialty Start Date End Date Gautam Wren DO [address] [place] [address] PCP - General 07/22/03 Navneet Hernandez MD [address] [place] [address] Catering Cook 08/05/23 Lorenzo Lora MD [address] [place] [address] Primary Staff Physician Cardiology 07/04/24 documented as of this encounter
--- OUTSIDE RECORDS SUMMARY | 2024-10-08 13:45 | XMS_ITS | Encounter Summary ---
Author Organization [facility] Address [facility] [place] [address] Care Team Providers Care Supervisor Mattress [employer] Boxsprings Name Role Phone Gautam Wren DO Primary Care Provider [phone] Navneet Hernandez MD Unavailable [phone] Lorenzo Lora MD Unavailable Source Comments In the event this information is protected by the Federal Confidentiality of Alcohol and Drug AbusePatient Records regulations: The Federal rules restrict any use of the information to criminally investigate or prosecute any alcohol or drug abuse patient.[facility] Reason for Visit * Reason Comments Spirometry * Outpatient Procedure (Routine) - Closed Specialty Diagnoses / Procedures Referred By Contac t Referred To Contact [facility] Diagnoses Primary pulmonary hypertension (HCC) Procedures SIX MINUTE WALK CARDIOPULMONARY EXERCISE STRESS Reyna Buck, RADHA.PLASTERER STUCCO [address] [place] [address] [address] [place] [address] Phone: tel: fax: [facility] [place] [address] [place] [id number] Referral ID Status Reason Start Date Expiration Date V isits Requested Visits Authorized [id number] Closed Auto-Generate d Referral 07/04/2024 08/03/2025 1 1 Encounter Details Date Type Department Care Team (Late st Contact Info) Description 10/08/2024 1:45 PM EDT Procedure Pulmonary Medicine [address] [place] [id number] Spirometry Social History Tobacco Use Types Packs/Day Years [...] is lower risk 6 08/08/2023 Data from: https://www.neighborhoodatlas.medicine.[facility].edu/. Last address used for calculation [address] [facility] 08/08/2023 Comments No Sex and Gender Information Value Date Recorded Sex Assigned at Not on file Legal Sex Female 9:46 AM EST Gender Identity Not on file Sexual Orientation Not on file documented as of this encounter Last Filed Vital Signs Vital Sign Reading Time Taken Comments Blood Pressure - - Pulse - - Temperature - - Respiratory Rate - - Oxygen Saturation - - Inhaled Oxygen Concentration - - Weight 89.7 kg (197 lb 12 oz) 10/08/2024 2:00 PM EDT Height 166.2 cm (5' 5.44 ) 10/08/2024 2:00 PM ED T Body Mass Index 32.47 10/08/2024 2:00 PM EDT documented in this encounter Functional Status * [...] Assessment Author No 11/25/2014 2:54 PM EDT Ashiwni Stevens MA * Because of a physical, [...] Ashwini Stevens MA documented in this encounter Procedure Notes * Aries Flores RRT - 10/08/2024 2:47 PM EDTAssociated Order(s): SIX MINUTE WALK RESPIRATORY THERAPY SIX MINUTE WALK TEST OXIMETRY REPORT Six Minute Walk Test for This Encounter Oxygen Device Liters FIO2 SpO2% HR Activity Feet Speed (MPH) R/A 100 68 Resting R/A 100 68 Resting R/A 100 104 Six Minute Walk 1610 3 R/A 100 75 Recovery General Information Height Weight Pulse Oximetry Site Pre Blood Pressure Post Recovery Blood Pressure 166.2 cm (5' 5.44 ) 89.7 kg (197 lb 12 oz) Forehead 125/80 155/84 _ Distance Walked (meters) Distance Walked (feet) Female Predicted Walk Distance (feet) Female Lower Limit of Normal (feet) Female % Predicted Total Duration Of The Stops (seconds) 490.73 1610 1546.26 1090.26 104.1 -- _ Lowest SpO2 During 6 Minute Walk Pre-Faye Dyspnea Rating Pre-Faye Fatigue Rating Post Faye Dyspnea Rating Post Faye Fatigue Rating Walking Assistance/O2 Supply Carrier 100 % 0 2 4 4 None Six Minute Walk Trend (Previous Encounters) None SIGNATURE: Aries Flores RRT PATIENT NAME: Rosita Brown DATE: October 08, 2024 TIME: 2:47 PM The patient completed the six minute walk test with No stops. . The patient required Room Air to complete the test. The distance the patient walked in six minutes is within the predicted normal range. This is the first time patient takes the six minute walk test. The patient perceived their dyspnea during the six minute walk test to be 4- Somewhat severe on the modified Faye scale. The patient perceived their fatigue during the six minute walk test to be 4- Somewhat severe on the modified Faye scale. I have reviewed the findings and made appropriate revisions as needed. SIGNATURE: Yair Dominguez MD PATIENT NAME: Rosita Brown DATE: October 08, 2024 TIME: 2:53 PM documented in this encounter Plan of Treatment Not on file documented as of this encounter Goals Goal Patient Goal Type Associated Problems Recent Progress Patient-Stated? Author Blood Pressure < 130/80 Blood Pressure 138/72( 025 2:26 PM EDT) No Lorenzo Lora MD documented as of this encounter Procedures Procedure Name Priority Date/Time Associated Diagnosis Comments SIX MINUTE WALK Routine 10/08/2024 2:47 PM EDT Primary pulmonary hypertension (HCC) documented in this encounter Results * SIX MINUTE WALK (10/08/2024 2:47 PM EDT) 10/08/2024 2:47 PM EDT Narrative Yair Dominguez MD - 10/08/2024 2:47 PM EDT Yair Dominguez MD 10/08/2024 2:53 PM RESPIRATORY THERAPY SIX MINUTE WALK TEST OXIMETRY REPORT Six Minute Walk Test for This Encounter Oxygen Device Liters FIO2 SpO2% HR Activity Feet Speed (MPH) R/A 100 68 Resting R/A 100 68 Resting R/A 100 104 Six Minute Walk 1610 3 R/A 100 75 Recovery General Information Height Weight Pulse Oximetry Site Pre Blood Pressure Post Recovery Blood Pressure 166.2 cm (5' 5.44 ) 89.7 kg (197 lb 12 oz) Forehead 125/80 155/84 _ Distance Walked (meters) Distance Walked (feet) Female Predicted Walk Distance (feet) Female Lower Limit of Normal (feet) Female % Predicted Total Duration Of The Stops (seconds) 490.73 1610 1546.26 1090.26 104.1 -- _ Lowest SpO2 During 6 Minute Walk Pre-Faye Dyspnea Rating Pre-Faye Fatigue Rating Post Faye Dyspnea Rating Post Faye Fatigue Rating Walking Assistance/O2 Supply Carrier 100 % 0 2 4 4 None Six Minute Walk Trend (Previous Encounters) None SIGNATURE: Aries Flores, SUPERVISOR JOINERS PATIENT NAME: Rosita Brown DATE: October 08, 2024 TIME: 2:47 PM The patient completed the six minute walk test with No stops. . The patient required Room Air to complete the test. The distance the patient walked in six minutes is within the predicted normal range. This is the first time patient takes the six minute walk test. The patient perceived their dyspnea during the six minute walk test to be 4-Somewhat severe on the modified Faye scale. The patient perceived their fatigue during the six minute walk test to be 4-Somewhat severe on the modified Faye scale. I have reviewed the findings and made appropriate revisions as needed. SIGNATURE: Yair Dominguez MD PATIENT NAME: Rosita Brown DATE: October 08, 2024 TIME: 2:53 PM us Reyna Buck CODING CLERK.PLASTERER STUCCO SCHEDULED PROCEDURES Final Result documented in this encounter Visit Diagnoses Diagnosis Pulmonary hypertension (HCC)- Primary Other chronic pulmonary heart diseases documented in this encounter Care Teams Supervisor [employer] Boxsprings Relationship Specialty Start Date End Date Gautam Wren DO [address] [place] [address] PCP - General 07/22/03 Navneet Hernandez MD [address] [place] [address] Favor Maker 08/05/23 Lorenzo Lora MD [address] [place] [address] Primary Staff Physician Cardiology 07/04/24 documented as of this encounter
--- OUTSIDE RECORDS SUMMARY | 2024-10-08 14:30 | XMS_ITS | Encounter Summary ---
Author Organization [facility] Address [place] [address] Care Team Providers Care Household Appliances Salesperson Name Role Phone Gautam Wren DO Primary Care Provider [phone] Navneet Hernandez MD Unavailable Lorenzo Lora MD Unavailable Source Comments In the event this information is protected by the Federal Confidentiality of Alcohol and Drug AbusePatient Records regulations: The Federal rules restrict any use of the information to criminally investigate or prosecute any alcohol or drug abuse patient.[facility] Reason for Visit * Reason Comments New * Consult, Test, Treat (Routine) - Closed Specialty Diagnoses / Procedures Referred By Contac t Referred To Contact Diagnoses Palpitations Pulmonary hypertension (HCC) Procedures CONSULT TO PULMONARY HYPERTENSION CLINIC OFFICE/OUTPATIENT NEW HIGH MDM 60 MINUTES Lorenzo Lora MD [address] [place] [address] Phone: tel: fax: Referral ID Status Reason Start Date Expiration Date V isits Requested Visits Authorized [id number] Closed PCP Requested Referral 07/04/2024 07/04/2025 1 1 Encounter Details Date Type Department Care Team (Late st Contact Info) Description 10/08/2024 2:30 PM EDT Office Visit Pulmonary Medicine [address] [place] [address] [place] [address] [place], [place] [id number] Palpitations; Pulmonary hypertension (HCC); Postural orthostatic tachycardia syndrome (POTS); Tremor; Essential (primary) hypertension; Thyroid nodule Social History Tobacco Use Types Packs/Day Years Used Date Smoking Tobacco: Never Smokeless Tobacco: Never Tobacco Cessation:Counseling Given: Not Answered Alcohol Use Standard Drinks/Week Comments No 0 (1 standard drink = 0.6 oz pur e alcohol) PHQ-2 Answer Date Recorded PHQ-2 score 0 10/02/2024 Area Deprivation Index Answer Date Noe rded National Score (1-100), lower number is lower ri sk 73 08/08/2023 State Score (1-10), lower number is lower risk 6 08/08/2023 Data from: https://www.neighborhoodatlas.medicine.[facility].edu/. Last address used for calculation [address] [facility] [facility] 08/08/2023 Comments No Sex and Gender Information Value Date Recorded Sex Assigned at Not on file Legal Sex Female 9:46 AM EST Gender Identity Not on file Sexual Orientation Not on file documented as of this encounter Last Filed Vital Signs Vital Sign Reading Time Taken Comments Blood Pressure 138/72 10/08/2024 2:26 PM EDT Pulse 70 10/08/2024 2:26 PM EDT Temperature 36.7 C (98 F) 10/08/2024 2:26 PM EDT Respiratory Rate 18 10/08/2024 2:26 PM EDT Oxygen Saturation 98% 10/08/2024 2:26 PM EDT Inhaled Oxygen Concentration - - Weight 89 kg (196 lb 3.4 oz) 10/08/2024 2:26 PM EDT Height - - Body Mass Index 32.21 10/08/2024 2:00 PM EDT documented in this [...] this encounter Patient Instructions * Patient Instructions* Amanda Moreno DO - 10/08/2024 3:12 PM EDT We discussed your concerns about pulmonary hypertension and shortness of breath: - Your echocardiogram from earlier this month was nearly normal, showing no significant signs of pulmonary hypertension. Your heart shape, function, and pressures are all within normal limits. - Your lung function tests (spirometry and lung volumes) from June 2024 were normal, with only a very mild impairment in diffusion capacity. This does not indicate any significant lung disease. - Your recent CT scan from September showed healthy lung tissue, normal-sized blood vessels, and no signsof interstitial lung disease or pulmonary hypertension. - Based on these findings, I am not concerned about pulmonary hypertension at this time. There is no need for further invasive testing, such as a heart catheterization, as your risk of significant pulmonary hypertension is very low. - Continue your current activities as tolerated. If you experience worsening shortness of breath, dizziness, or other concerning symptoms, please let us know. We discussed your history of POTS (postural orthostatic tachycardia syndrome): - Continue taking Nebivolol as prescribed for POTS management. - If you experience significant dizziness, lightheadedness, or near-fainting episodes, please contact our office. We discussed your history of burning sensations and tremors: - Continue taking Gabapentin as prescribed to manage these symptoms. - If you notice any worsening of symptoms, please let us know. We discussed your thyroid history: - You have a history of Graves??? disease and thyroid nodules, but your thyroid levels have been normal recently. No current treatment is needed for your thyroid. No additional follow-up testing or imaging is required at this time. Please continue your current medications and monitor your symptoms. If you have any new or worsening concerns, contact our office. documented in this encounter Progress Notes * Amanda Moreno DO - 10/08/2024 2:38 PM EDT Images from the original note were not included. PULMONARY HYPERTENSION CLINIC Initial Visit October 08, 2024 I had the pleasure of seeing Rosita Brown in consultation at the request of Amanda Morenofor Pulmonary Hypertension. Summary of this visit and my recommendations will be relayed to the referring physician by way of electronic communication or by mail. PCP: Gautam Wren DO Referring Provider: Amanda Moreno Subjective: I had the pleasure of seeing Rosita Brown in consultation for continued evaluation and and management of Pulmonary Hypertension. Summary of this visit and my recommendations will be relayed to the referring physician and primary care physician by way of electronic communication or by mail. Following HPI dictated by [employer] software. HPI: Rosita is a 59-year-old female with a history of POTS, presenting for evaluation of pulmonary hypertension and dyspnea. Rosita reports a history of dyspnea and fatigue over the past year, with episodes of needle pain in the ear beginning in January while at a store. She was evaluated at [facility] in February, where an EKG was performed. Initial results were reported as normal, but she was later informed of abnormalities. She expresses dissatisfaction with the care received at [facility], citing poor communication and delays in test results. She underwent an echocardiogram, which initially suggested elevated pressures but was reportedly normal on repeat testing. She was referred for evaluation of pulmonary hypertension by her fuel oil truck driver, Dr. Fink, who discussed the possibility of a heart catheterization to measure pressures. 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 She can walk a city block but notes mild dyspnea afterward. She denies orthopnea, lowerextremity edema, or abdominal swelling. She reports occasional lightheadedness and near-syncope, particularly when rising quickly, but denies complete syncope. These symptoms have been present for years and were part of her initial evaluation for POTS approximately 20 years ago. She was previously evaluated at the [facility], where it was suggested that her body produced excessive antibodies, potentially damaging her nervous system. She has a history of tremors and neuropathic pain, for which she is on gabapentin. She also takes Nebivolol for POTS. She denies the use of stimulants, weight loss drugs, amphetamines, herbal supplements, or chemotherapy. She has a history of thyroid nodules and was previously treated for Graves' disease but is not currently on thyroid replacement therapy. She reports normal thyroid levels recently but notes that high antibodies in the past have exacerbated her tremors. She denies any history of liver problems, blood clots, or autoimmune diseases such as lupus, scleroderma, or rheumatoid arthritis. She has been tested for sleep apnea, with negative results in April. She reports good hydration and denies issues with excessive urination, discoloration or skin changes in her legs, or issues with temperature regulation. She also denies any issues with dry mouth or excess salivation. She had a titanium device implanted to record her heart activity, which was removed after nearly 2 years. She underwent spirometry at [facility] in June, with normal results. She also had a CT scan in September, which showed healthy lung tissue and normal heart size. Eyes: (-) dry eyes Ears/Nose/Mouth/Throat: (-) dry mouth, (-) excess salivation Cardiovascular: (+) palpitations, (-) lower extremity edema, (-) syncope Respiratory: (+) exertional dyspnea, (-) orthopnea Skin: (-) rash, (-) leg discoloration Neurological: (+) tremors, (+) exertional dizziness, (+) presyncope, (+) burning dysesthesia Endocrine: (+) temperature intolerance Additional History: MEDICATIONS: Cholecalciferol, Vitamin D3, 50 mcg (2,000 unit) cap Take 2 capsules by mouth once daily. MAGNESIUM GLYCINATE ORAL Take 240 mg by mouth once daily. High absorption mv-min/iron/folic/calcium/vitK (WOMEN'S MULTIVITAMIN ORAL) Take 1 tablet by mouth once daily. acetaminophen (TYLENOL 8 HOUR ORAL) Take by mouth as needed. gabapentin (NEURONTIN) 100 mg capsule Take 1 capsule by mouth once daily. nebivolol (BYSTOLIC) 5 mg tablet Take 2.5 mg by mouth once daily. ALLERGIES: ALLERGIES Allergen Reactions Contrast Dye Other: See Comments, Unknown Azithromycin GI Upset Severe diarrhea Budesonide-Formoter* Other: See Comments Celecoxib Other: See Comments Other Reaction(s): Unknown Cephalosporins Unknown Clavulanic Acid Diarrhea Other Reaction(s): diarrhea Clonidine Other: See Comments Other Reaction(s): Spasm Other Reaction(s): eye brown pain, spasms Other Reaction(s): Spasm Other Reaction(s): eye brown pain, spasms Divalproex Unknown Flagyl [Metronidazo* Diarrhea Had diarrhea and dizziness and funny feeling in head and arms Formoterol Other: See Comments Other Reaction(s): blood pressure Latex Other: See Comments Levofloxacin Diarrhea, Other: See Comments Other Reaction(s): Unknown Lorazepam Other: See Comments Methylprednisolone GI Upset, Other: See Comments Other Reaction(s): Unknown Morphine Other: See Comments CHEST PAIN AND INCREASED BLOOD PRESSURE Nitrofurantoin Other: See Comments Oxybutynin Other: See Comments Other Reaction(s): other, Unknown Penicillins GI Upset Severe diarrhea Sulfa (Sulfonamide * Itching, Other: See Comments Other Reaction(s): itching Tape [Adhesive Tape* Other: See Comments blisters Trimethoprim Itching Other Reaction(s): itching HISTORY: PAST MEDICAL HISTORY Diagnosis Date Autoimmune disease [...] orthostatic tachycardia syndrome) 04/17/2018 Pulmonary HTN (HCC) PAST SURGICAL HISTORY Procedure Laterality Date APPENDECTOMY as a child HYSTEROSCOPY W/BX ENDO/POLYP 03/22/2014 Dr. Blanton: hysteroscopy, polypectomy LAPS ABD PRTM&OMENTUM DX W/WO SPEC BR/WA SPX 1996 endometriosis PAST SURGICAL HISTORY OF reval implant for heart- inserted and removed PAST SURGICAL HISTORY OF 1995 d&c SKIN BX, 1 LESION facial TOOTH ROOT REMOVAL wisdom teethe removed FAMILY HISTORY Problem Relation Age of Onset Heart Mother Arrythmias Mother afib other (pulmonary embolism [Other]) Mother Prostate Cancer Father Arrythmias Maternal Grandmother afib Heart Failure Maternal Grandmother Leukemia Maternal Grandfather Sudden Cardiac Paternal Grandfather Heart Attack Paternal Grandfather Arrythmias Maternal Aunt afib Lymphoma Maternal Aunt Breast Cancer Paternal Aunt other (Cancer in lymph nodes) Maternal Uncle other (cancer of unknown primary) Maternal Uncle other (other) Maternal Uncle Social History Tobacco Use Smoking status: Never Smokeless tobacco: Never Vaping Use Vaping status: Never Used Substance Use Topics Alcohol use: No Drug use: No Objective: PHYSICAL EXAM: VITALS: LMP 03/07/2018 (Exact Date) General appearance: Alert, NAD Neck: Supple neck. Midline trachea. JVD not present at 45 degrees of incline. Respiratory: Lungs clear to auscultation. No wheezing, rhonchi, rales. Diaphragmatic excursion and chest wall symmetry appear equal and normal. No accessory muscle use. Cardiovascular: normal rate, reg rhythm, No parasternal heave. Abdomen/GI: Abdomen soft, non-tender, non-distended. No masses or organomegaly noted. Liver nonpulsitile. No hepatojugular reflux. Extremities: No clubbing or cyanosis of fingers. No cracking, pitting or petechiae on fingers. Capillary refill <2 sec bilaterally. No peripheral edema noted in the lower extremities. Upper extremities appear normal. Normal temperature of all 4 extremities. Musculoskeletal: Spine shows no kyphosis or scoliosis. Muscles show no clear abnormality. Skin: No petechiae, ecchymoses, rash noted. Neuro: Oriented X 3. Normal mood and affect. DATA: Diagnostic tests reviewed for today's visit, films/specimens were personally reviewed by me: Echocardiogram (07/2024) MEASUREMENTS: Value Indexed Normal Max aortic dimension 3.1 cm Ao < 3.8 Left atrial volume 53 ml (Martin's) 26 ml/m Myrna <= 34 LV ID (diastole) 4.8 cm (2D) 2.36 cm/m?? LV ID (systole) 2.2 cm (2D) 1.09 cm/m?? IVS, leaflet tips 0.9 cm (2D) Posterior wall thickness 0.9 cm (2D) Left ventricular mass 152 g (2D) 75 g/m?? Global peak long strain -15.1 % LV stroke volume 52 ml (2D biplane) LV end diastolic volume 81 ml (2D biplane) 39.9 ml/m 29<=EDVi<62 LV end systolic volume 30 ml (2D biplane) 14.6 ml/m?? Ejection Fraction 63 % (2D biplane) EF > 54 FINDINGS: LEFT VENTRICLE The left ventricle is normal in size. Left ventricular systolic function is normal. Global LV myocardial strain is borderline abnormal. Left ventricular diastolic function was not evaluated. Mitral annular lateral E/e': 12.4. Mitral annular septal E/e': 13.1. Wall Motion: All scored segments are normal. RIGHT VENTRICLE The right ventricle is normal in size. Right ventricular systolic function is normal. RV systolic tissue Doppler velocity is 14.3 cm/s. Tricuspid annular displacement is 1.7 cm. Estimated right ventricular systolic pressure is 28 mmHg consistent with normal pulmonary artery pressures. Estimated right atrial pressure is 3 mmHg based on IVC assessment. LEFT ATRIUM The left atrial cavity is normal in size. Pulmonary Veins: The pulmonary venous pattern showed normal systolic flow. RIGHT ATRIUM The right atrial cavity is normal in size. Inferior Vena Cava: The inferior vena cava appears normal measuring 1.3 cm. The vessel decreases greater than 50 percent with inspiration. MITRAL VALVE The mitral valve leaflets are structurally normal. There is trace mitral valve regurgitation. The pressure half time is 46 msec. The peak mitral E/A ratio is 1.21. The average mitral E/e' ratio is 12.8. The mitral flow deceleration time is 157 msec. TRICUSPID VALVE The tricuspid valve leaflets are structurally normal. There is mild (1+) tricuspid valve regurgitation. The hepatic venous pattern showed normal systolic flow. AORTIC VALVE The aortic valve cusps are structurally normal. There is trace aortic valve regurgitation. Tricuspid aortic valve. PULMONIC VALVE There is trace pulmonic valve regurgitation. There is no thickening. AORTA The visualized aorta is normal in size. Measurements - Mid ascending aorta 3.1 cm. INTERATRIAL SEPTUM There is no evidence of intracardiac shunting as detected by Doppler. PERICARDIUM There is a small pericardial effusion adjacent to the left ventricle and a trivial pericardial effusion adjacent to the right atrium. Labs: SARAH BETH SARAH BETH by EIA (OD Ratio) Date Value 04/24/2001 0.2 Rheumatoid Factor Rheumatoid Factor (IU/mL) Date Value 04/24/2001 <20 TSH TSH Date Value 07/04/2024 1.460 mIU/L 04/17/2014 2.060 uU/mL HIV No results found for: HIVSCN , [id number] ] Hepatitis B Surface Antigen No results found for: HBSAGR Hepatitis C No results found for: HEPCABEIA NT PRO BNP Lab Results Component Value Date PBNP 85 07/04/2024 Chemistries Lab Results Component Value Date NA 144 07/04/2024 NA 142 04/17/2018 NA 142 03/11/2014 K 5.8 (H) 07/04/2024 K 4.3 04/17/2018 K 4.9 03/11/2014 CHLOR 108 (H) 07/04/2024 CHLOR 106 (H) 04/17/2018 CHLOR 105 03/11/2014 CO2 22 07/04/2024 CO2 22 04/17/2018 CO2 25 03/11/2014 BUN 17 07/04/2024 BUN 9 04/17/2018 BUN 10 03/11/2014 CREAT 0.92 07/04/2024 CREAT 0.69 04/17/2018 CREAT 0.79 03/11/2014 EGFRAA >60 04/17/2018 EGFRAA >60 03/11/2014 EGFROTH 72 07/04/2024 EGFROTH >60 04/17/2018 EGFROTH >60 03/11/2014 GLUC 85 07/04/2024 GLUC 83 04/17/2018 GLUC 85 03/11/2014 ANION 14 07/04/2024 ANION 14 04/17/2018 ANION 12 03/11/2014 Liver Function Lab Results Component Value Date AST 33 07/04/2024 AST 15 05/17/2001 ALT 26 07/04/2024 ALT 17 05/17/2001 ALKPHOS 99 07/04/2024 ALKPHOS 85 05/17/2001 TBILI 0.3 07/04/2024 TBILI 0.5 05/17/2001 CBC Lab Results Component Value Date HB 14.7 07/04/2024 HB 14.3 04/17/2018 HB 13.4 03/11/2014 HB 13.3 03/11/2014 HCT 45.7 07/04/2024 HCT 44.7 04/17/2018 HCT 41.7 03/11/2014 HCT 41.0 03/11/2014 WBC 5.04 07/04/2024 WBC 4.21 04/17/2018 WBC 5.28 03/11/2014 WBC 5.35 03/11/2014 PLT 185 07/04/2024 PLT 204 04/17/2018 PLT 236 03/11/2014 PLT 221 03/11/2014 Assessment and Plan: Rosita Brown is a 59 year old female who presents for evaluation of pulmonary hypertension withprevious history of POTS, polyneuropathy?, HTN, Graves Disease, and HTN. PFT including spirometry/lung volumes/DLCO were essentially normal from 06/2024 at [facility]. DLCO mildly reduced 67% predicted corrected for Hgb. CT reviewed withotu evidence of parenchymal lung disease with normal PA diameter. Echocardiogram is essentially normal with low probability of PH and otherwise lacks clear features or risk factors for PH. She believes her POTS is well controlled. She does not have features of orthostasis or positional worsening. Does not have overt symptoms suggestive of preload insufficiency. Does not have features of orthopnea/neuromuscular weakness. RECOMMENDATIONS: - reassurance that she has low probability of PH, no need to proceed with RHC - discussed potential deconditioning and importance of regular/progressive exercise - discussed association of neuropathies/POTS with preload insufficiency and discussed conservative measures (hydration, supine exercise, core muscle strengthening, pressure stockings) , and role of upright exercise testing (ie ICPET) which she was not interested in at this time All questions were answered to Rosita Brown's satisfaction, Rosita rBown verbalizes understanding and agrees with treatment plan and was encouraged to contact me with questions. All documentation above reflects my independent exam and review. I saw and examined this patient myself. Pertinent portions of the HPI, ROS, objective findings and assessment/plan may have been copied from my previous clinical documentation however pertinent changes have been made and documented today. Amanda Moreno DO Respiratory [facility] October 0852:38 PM documented in this encounter Plan of Treatment Not on file documented as of this encounter Goals Goal Patient Goal Type Associated Problems Recent Progress Patient-Stated? Author Blood Pressure < 130/80 Blood Pressure 138/72( 025 2:26 PM EDT) No Lorenzo Lora MD documented as of this encounter Visit Diagnoses Diagnosis Palpitations Pulmonary hypertension (HCC) Other chronic pulmonary heart diseases Postural orthostatic tachycardia syndrome (POTS) Tremor Abnormal involuntary movements Essential (primary) hypertension Unspecified essential hypertension Thyroid nodule Nontoxic uninodular goiter documented in this encounter Care Teams Household Appliances Salesperson Relationship Specialty Start Date End Date Gautam Wren DO [address] [place] [address] PCP - General 07/22/03 Navneet Hernandez MD [address] [place] [address] [place] 08/05/23 Lorenzo Lora MD [address] [place] [address] Primary Staff Physician Cardiology 07/04/24 documented as of this encounter
[2024-10-13] VITALS (30 sets, daily range): BP systolic 155–201; BP diastolic 81–84; PULSE 61–87; TEMP 37; O2SAT 96–100; BMI 28.9
--- OUTSIDE RECORDS SUMMARY | 2024-10-13 00:59 | XMS_ITS | Encounter Summary ---
Author Organization [facility] Address [address] [place] [address] Care Team Providers Care Consulting Systems Engineer Name Role Phone Gautam Wren DO Primary Care Provider [phone] Navneet Hernandez MD Unavailable [phone] Lorenzo Lora MD Unavailable Source Comments In the event this information is protected by the Federal Confidentiality of Alcohol and Drug AbusePatient Records regulations: The Federal rules restrict any use of the information to criminally investigate or prosecute any alcohol or drug abuse patient.[facility] Encounter Details Date Type Department Care Team (Latest Contact Info) Description 10/01/2024 Travel Social History Tobacco Use Types Packs/Day Years [...] is lower risk 6 08/08/2023 Data from: https://www.neighborhoodatlas.medicine.[facility].edu/. Last address used for calculation [address] [facility] 08/08/2023 Comments No Sex and [...] Ashwini Stevens MA documented in this encounter Plan of Treatment Not on file documented as of this encounter Goals Goal Patient Goal Type Associated Problems Recent Progress Patient-Stated? Author Blood Pressure < 130/80 Blood Pressure 138/72( 025 2:26 PM EDT) No Lorenzo Lora MD documented as of this encounter Visit Diagnoses Not on filedocumented in this encounter Care Teams Consulting Systems Engineer Relationship Specialty Start Date End Date Gautam Wren DO [address] [place] [address] PCP - General 07/22/03 Navneet Hernandez MD [address] [facility] [address] [place] [address] Product Manager [employer] 08/05/23 Lorenzo Lora MD [address] [place] [address] Primary Staff Physician Cardiology 07/04/24 documented as of this encounter
--- OUTSIDE RECORDS SUMMARY | 2024-10-13 00:59 | XMS_ITS | Clinical Summary ---
Author Organization [facility] Address [address] [place] [address] Care Team Providers Care Rubber Extrusion Machine Operator Name Role Phone aGutam Wren DO Primary Care Provider [phone] Allergies Active Allergy Reactions Criticality Noted Date Comments Amoxicillin-Pot Clavulanate Diarrhea 12/21/2022 Other Reaction(s): Unknown Azithromycin Other 10/07/2014 Severe diarrhea Other Reaction(s): GI Upset Severe diarrhea Budesonide Other 02/08/2024 Budesonide-Formoterol Other 03/05/2024 Celecoxib Unknown 12/21/2022 Other Reaction(s): Unknown Cephalosporins Other,Unknown 12/25/2003 Other Reaction(s): other, Unknown Other Reaction(s): Unknown Clavulanic Acid Diarrhea 07/12/2022 Other Reaction(s): diarrhea Clonidine Other 07/12/2022 Other Reaction(s): Spasm Other Reaction(s): eye brown pain, spasms Divalproex Unknown 03/05/2024 Formoterol Other 07/12/2022 Other Reaction(s): blood pressure Iodinated Contrast Media Other,Unknown High 01/22/20 14 chest pain , increased HR, increased BP Other Reaction(s): Other: See Comments, Unknown chest pain , increased HR, increased BP Other Reaction(s): Other: See Comments, Unknown Reaction Levofloxacin Diarrhea,Other 12/21/2022 Other Reaction(s): Unknown Lorazepam Unknown 12/21/2022 Other Reaction(s): Unknown Metronidazole Diarrhea 10/21/2014 Had diarrhea and dizziness and funny feeling in head and arms Other Reaction(s): Unknown Had diarrhea and dizziness and funny feeling in head and arms Morphine Other,Unknown 03/11/2014 CHEST PAIN AND INCREASED BLOOD PRESSURE Other Reaction(s): Other: See Comments, Unknown CHEST PAIN AND INCREASED BLOOD PRESSURE Nitrofurantoin Other 02/08/2024 Oxybutynin Other,Unknown 04/26/2014 Other Reaction(s): other, Unknown Sulfa (Sulfonamide Antibiotics) Itching,Other 07/12/2022 Other Reaction(s): itching Sulfamethoxazole-Trimethop rim Itching 12/21/2022 Trimethoprim Itching 07/12/2022 Other Reaction(s): itching Medications Medication Sig Dispensed Refills Start Date End Date Status gabapentin (Neurontin) 100 mg capsule Take 1 capsule twice a day by oral route for 90 days. 12/24/2015 Active famotidine (Pepcid) 20 mg tablet Take 20 mg by mouth two times daily. Active simethicone (Mylicon) 80 mg chewable tablet Chew 80 mg every 6 (six) hours if needed for flatulence. Active Calcium 500 With D 500 mg-10 mcg (400 unit) tablet Take 1 tablet by mouth in the morning. 08/03/2023 Active nebivolol (Bystolic) 5 mg tabletIndications:Palp itations,POTS (postural orthostatic tachycardia syndrome),Pulmonary hypertension (CMS/HCC) Take 0.5 tablets (2.5 mg) by mouth once daily as directed. 45 tablet 3 04/24/2024 Active Active Problems No known active problems Encounters Date Type Department Care Team Description 07/16/[address] [address] Lupe Shane MA 07/16/2024 Orders Only [facility] [address] [place] [address] Lupe Shane MA Abnormal PFTs (pulmonary function tests) from Last 3 Months Social History Tobacco Use Types Packs/Day Years Used Date Smoking Tobacco: Never Passive Smoke Exposure: Never Smokeless Tobacco: Never Alcohol Use Standard Drinks/Week Comments Never 0 (1 standard drink = 0.6 oz pur e alcohol) Humiliation, Afraid, Rape, and Kick questionnair e Answer Date Recorded Within the last year, have y ou been afraid of your partner or ex-partner? No 04/23/2024 Within the last year, have y ou been humiliated or emotionally abused in other ways by your partner or ex-partner? No Within the last year, have y ou been kicked, hit, slapped, or otherwise physically hurt by your partner or ex-partner? No 04/23/2024 Within the last year, have y ou been raped or forced to have any kind of sexual activity by your partner or ex-partner? No 04/23/2024 PHQ-2 Answer Date Recorded Patient Health Questionnaire-2 Score 0 04/23/2024 Sex and Gender Information Value Date Recorded Sex Assigned at Not on file Gender Identity Not on file Sexual Orientation Not on file Last Filed Vital Signs Vital Sign Reading Time Taken Comments Blood Pressure 112/77 04/23/2024 9:22 AM EST Pulse 68 04/23/2024 9:22 AM EST Temperature - - Respiratory Rate - - Oxygen Saturation - - Inhaled Oxygen Concentration - - Weight 90.7 kg (200 lb) 04/23/2024 9:16 AM EST Height 170.2 cm (5' 7 ) 04/23/2024 9:16 AM EST Body Mass Index 31.32 04/23/2024 9:16 AM EST Plan of Treatment Health Maintenance Due Date Last Done Comments CT Colonography 1965 Colonoscopy 1965 Colorectal Cancer Screening 1965 FIT-DNA 1965 FIT 1965 FOBT 1965 Medicare Annual Wellness (AWV) 1965 Sigmoidoscopy 1965 Hepatitis B Vaccines (1 of 3 - 19+ 3-dose series) 02/06/1984 Pap Smear 1986 Cervical Cancer Screening 1995 HPV/Cotest 1995 Zoster Vaccines (1 of 2) 2015 COVID-19 Vaccine ( - 2023-2 5 season) 2024 Influenza Vaccine (Season Ended) 2025 Depression Screening 04/23/2025 04/23/2024 Mammogram 02/08/2026 02/09/2024 Adult Tetanus 04/08/2032 04/08/2022 HIB Vaccines Aged Out No longer eligi ble based on patient's age to complete this topic HPV Vaccines Aged Out No longer eligi ble based on patient's age to complete this topic IPV Vaccines Aged Out No longer eligi ble based on patient's age to complete this topic Meningococcal B Vaccine Aged Out No l onger eligible based on patient's age to complete this topic Meningococcal Vaccine Aged Out No meggan vandana eligible based on patient's age to complete this topic Pneumococcal Vaccine: Pediat rics (0 to 5 Years) and At-Risk Patients (6 to 64 Years) Aged Out No longer eligi ble based on patient's age to complete this topic Rotavirus Vaccines Aged Out No longer eligible based on patient's age to complete this topic Care Teams Rubber Extrusion Machine Operator Relationship Specialty Start Date End Date Gautam Wren DO [address] [place] [address] PCP - General Family Medicine 03/05/24
--- OUTSIDE RECORDS SUMMARY | 2024-10-13 00:59 | XMS_ITS | Encounter Summary ---
Author Organization [facility] Address [address] [place] [address] Care Team Providers Care Diving Fisher Name Role Phone Gautam Wren DO Primary Care Provider [phone] Navneet Hernnadez MD Unavailable [phone] Lorenzo Lora MD Unavailable Source Comments In the event this information is protected by the Federal Confidentiality of Alcohol and Drug AbusePatient Records regulations: The Federal rules restrict any use of the information to criminally investigate or prosecute any alcohol or drug abuse patient.[facility] Encounter Details Date Type Department Care Team (Late st Contact Info) Description 09/27/2024 Patient [facility] -[address] [place] [id number] Dariana Maldonado RPh At your next appointment, choose [facility]. Social History Tobacco Use Types Packs/Day Years Used Date Smoking Tobacco: Never Smokeless Tobacco: Never Alcohol Use Standard Drinks/Week Comments No 0 (1 standard drink = 0.6 oz pur e alcohol) Area Deprivation Index Answer Date Noe rded National Score (1-100), lower number is lower ri sk 73 08/08/2023 State Score (1-10), lower number is lower risk 6 08/08/2023 Data from: https://www.neighborhoodatlas.[facility]/. Last address used for calculation [address] [facility] 08/08/2023 Comments No Sex and Gender Information [...] on filedocumented in this encounter Care Teams Diving Fisher Relationship Specialty Start Date End Date Gautam Wren DO [address] [place] [address] PCP - General 07/22/03 Navneet Hernandez MD [address] [place] [address] Organic Search Lead 08/05/23 Lorenzo Lora MD [address] [place] [address] Primary Staff Physician Cardiology 07/04/24 documented as of this encounter
--- OUTSIDE RECORDS SUMMARY | 2024-10-13 00:59 | XMS_ITS | Encounter Summary ---
Author Organization [facility] Address [address] [place] [address] Care Team Providers Care Inspector Canned Food Reconditioning Name Role Phone Gautam Wren DO Primary Care Provider [phone] Navneet Hernandez MD Unavailable [phone] Lorenzo Lora MD Unavailable Source Comments In the event this information is protected by the Federal Confidentiality of Alcohol and Drug AbusePatient Records regulations: The Federal rules restrict any use of the information to criminally investigate or prosecute any alcohol or drug abuse patient.[facility] Encounter Details Date Type Department Care Team (Late st Contact Info) Description 05/04/2023 Patient Msg Endocrinology [address] [place], [place] [id number] Matthew Luna MD [address] [facility] [address] [place] [address] Ultrasound Social History Tobacco Use Types Packs/Day Years Used Date Smoking Tobacco: Never Smokeless Tobacco: Never Alcohol Use Standard Drinks/Week Comments No 0 (1 standard drink = 0.6 oz pur e alcohol) Area Deprivation Index Answer Date Noe rded National Score (1-100), lower number is lower ri sk Not on file 04/15/2020 State Score (1-10), lower number is lower risk N ot on file 04/15/2020 Data from: https://www.neighborhoodatlas.medicine.[facility]/. Last address used for calculation Not on file 04/15/2020 Comments No Sex and Gender Information Value [...] Ashwini Stevens MA documented in this encounter Miscellaneous Notes * Telephone Encounter - Michelle Cox - 07/22/2023 1:19 PM EDT Patient scheduled for FNA with Dr. Becerril on 09/21/2023 at the [facility]. * Telephone Encounter - Bekah Zaragoza MA - 07/18/2023 3:31 PM EDT PSS Note: Please schedule FNA per Dr Shah. Order placed. * Telephone Encounter - Tricia Arrington RN - 07/14/2023 4:11 PM EST Pt calls Aware of below Please call to schedule biopsy appt documented in this encounter Plan of Treatment Not on file documented as of this encounter Visit Diagnoses Not on filedocumented in this encounter Care Teams Inspector Canned Food Reconditioning Relationship Specialty Start Date End Date Gautam Wren DO [address] [place] [address] PCP - General 07/22/03 Navneet Hernandez MD [address] [address] Conduit Worker 08/05/23 Lorenzo Lora MD [address] [place] [address] Primary Staff Physician Cardiology 07/04/24 documented as of this encounter
--- OUTSIDE RECORDS SUMMARY | 2024-10-13 00:59 | XMS_ITS | Encounter Summary ---
Author Organization [facility] Address [address] [place] [address] Care Team Providers Care Template Maker Name Role Phone Gautam Wren DO Primary Care Provider [phone] Navneet Hernandez MD Unavailable [phone] Lorenzo Lora MD Unavailable Source Comments In the event this information is protected by the Federal Confidentiality of Alcohol and Drug AbusePatient Records regulations: The Federal rules restrict any use of the information to criminally investigate or prosecute any alcohol or drug abuse patient.[facility] Encounter Details Date Type Department Care Team (Latest Contact Info) Description 10/05/2024 Travel Social History Tobacco Use Types Packs/Day [...] is lower risk 6 08/08/2023 Data from: https://www.neighborhoodatlas.medicine.[facility].edu/. Last address used for calculation [address] [facility] 08/08/2023 Comments No Sex and [...] on filedocumented in this encounter Care Teams Template Maker Relationship Specialty Start Date End Date Gautam Wren DO [address] [place] [address] PCP - General 07/22/03 Navneet Hernandez MD [address] [facility] [address] [place] [address] Planning Intern 08/05/23 Lorenzo Lora MD [address] [place] [address] Primary Staff Physician Cardiology 07/04/24 documented as of this encounter
--- OUTSIDE RECORDS SUMMARY | 2024-10-13 00:59 | XMS_ITS | Clinical Summary ---
Author Organization [facility] Address [address] [place] [address] Care Team Providers Care Potato Seed Cutter Name Role Phone Holger Gautam Dennis DO Primary Care Provider [phone] Navneet Hernandez MD Unavailable [phone] Lorenzo Lora MD Unavailable Allergies Active Allergy Reactions Criticality Noted Date Comments Azithromycin GI Upset 10/07/2014 Severe diarrhea Budesonide-Formoterol Other: See Comments 03/05/2024 Celecoxib Other: See Comments 07/12/2022 Other Reaction(s): Unknown Cephalosporins Unknown 12/25/2003 Clavulanic Acid Diarrhea 07/12/2022 Other Reaction(s): diarrhea Clonidine Other: See Comments 07/12/2022 Other Reaction(s): Spasm Other Reaction(s): eye brown pain, spasms Other Reaction(s): Spasm Other Reaction(s): eye brown pain, spasms Contrast Dye Other: See Comments,Unknown High 01/21/2014 Divalproex Unknown 03/05/2024 Metronidazole Hcl Diarrhea 10/21/2014 Had diarrhea and dizziness and funny feeling in head and arms Formoterol Other: See Comments 07/12/2022 Other Reaction(s): blood pressure Latex Other: See Comments 07/04/2024 Levofloxacin Diarrhea,Other: See Comments 07/12/2022 Other Reaction(s): Unknown Lorazepam Other: See Comments 04/27/2024 Methylprednisolone GI Upset,Other: See Comments 07/12/2022 Other Reaction(s): Unknown Morphine Other: See Comments 03/11/2014 CHEST PAIN AND INCREASED BLOOD PRESSURE Nitrofurantoin Other: See Comments 07/12/2022 Oxybutynin Other: See Comments 04/26/2014 Other Reaction(s): other, Unknown Penicillins GI Upset 10/07/2014 Severe diarrhea Sulfa (Sulfonamide Antibiotics) Itching,Other: See Comments 04/15/2017 Other Reaction(s): itching Adhesive Tape (Rosins) Other: See Comments 01/21/2014 blisters Trimethoprim Itching 07/12/2022 Other Reaction(s): itching Medications nebivolol (BYSTOLIC) 5 mg tabletIndication s:Thickened endometrium,Heav y menses Take 2.5 mg by mouth once daily. Active gabapentin (NEURONTIN) 100 mg capsule Take 1 capsule by mouth once daily. 12/24/19 16 Active Cholecalciferol, Vitamin D3, 50 mcg (2,000 unit) cap Take 2 capsules by mouth once daily. 09/27/19 24 Active MAGNESIUM GLYCINATE ORAL Take 240 mg by mouth once daily. High absorption Active mv-min/iron/foli c/calcium/vitK (WOMEN'S MULTIVITAMIN ORAL) Take 1 tablet by mouth once daily. Active acetaminophen (TYLENOL 8 HOUR ORAL) Take by mouth as needed. Active ibuprofen (MOTRIN) 600 mg tablet Take 1 tablet by mouth every 6 hours as needed for Pain. Take with food. 50 tablet 04/25/20 18 025 Discontinued Active Problems Problem Noted Date Diagnosed Date Atypical glandular cells of undetermined significance (BRANDON) on cervical Pap smear 05/30/2018 Overview (05/30/2018): 04/2018 PAP BRANDON HPV negative 05/2018 Colposcopy negative 05/2019 PAP due Autonomic dysfunction 04/17/2018 POTS (postural orthostatic tachycardia syndrome) 04/17/2018 Left ear pain 02/07/2018 Overview (02/07/2018): Added automatically from request for surgery [id number] Intramural and submucous leiomyoma of uterus Submucous leiomyoma of uterus 08/01/2017 Overview (08/01/2017): Added automatically from request for surgery [id number] Endometrial polyp 06/13/2017 Overview (06/13/2017): Added automatically from request for surgery [id number] Multiple thyroid nodules 12/24/2015 Female stress incontinence 11/25/2014 Encounters Date Type Department Care Team Description 10/08/2024 2:30 PM EDT Office Visit Pulmonary Medicine [address] [place] [address] Amanda Moreno DO Palpitations; Pulmonary hypertension (HCC); Postural orthostatic tachycardia syndrome (POTS); Tremor; Essential (primary) hypertension; Thyroid nodule 10/08/2024 1:45 PM EDT Procedure Pulmonary Medicine [address] [place] [id number] Spirometry 10/05/2024 12:30 PM EDT Office Visit Pulm Rob Mondragonyria [address] [place], [place] [id number] Kaity Granado, SORTER LUMBER STRAIGHTENER.STOREPERSON Lung nodules (Primary Dx) 10/05/2024 11:30 AM EDT - 10/05/2024 11:59 PM EDT Hospital Encounter Radiology Ct Scan [address] [place] [address] Dr [place], [place] [id number] Lung nodules [R91.8] Discharge Disposition: Home 10/05/2024 Results Follow-Up Pul Rob Taylor [address] [place], [place] [id number] Kaity Granado, SORTER LUMBER STRAIGHTENER.STOREPERSON 10/05/2024 Travel 10/05/[address] Scan [address] [place] [address] [address] [place], [place] [id number] Lucinda Rodriguez, RT(R) Radiology CT 10/04/2024 Telephone Pulmonary Medicine [address] [place] [address] [address] Amanda Moreno DO Patient Question 10/03/2024 9:00 AM EDT [facility] Cardiology [address] [place] [address] Lorenzo Lora MD Chest pain, unspecified type (Primary Dx); Palpitations; Pulmonary hypertension (HCC); SOB (shortness of breath); Elevated blood pressure reading 10/01/2024 Travel 09/27/2024 Patient [facility] [place] [address] Dariana Maldonado RPh At your next appointment, choose [facility]. 08/17/2024 Patient Msg Radiology [address] [place] [address] Provider, [facility] Appointments Scheduled 08/16/2024 9:30 AM EDT [facility] Pulmonary Medicine [address] [place] [address] Kaity Granado, SORTER LUMBER STRAIGHTENER.STOREPERSON Lung nodule seen on imaging study (Primary Dx); SOBOE (shortness of breath on exertion); Lung nodules 08/16/2024 Telephone Pulmonary Medicine [address] [place] [address] Kaity Granado, SORTER LUMBER STRAIGHTENER.STOREPERSON 08/09/2024 Nurse Triage NURSE VICE PRESIDENT DIGITAL STRATEGIST [address] [place], [place] [phone] Yancy Low RN Results 08/01/2024 Patient Msg Pulmonary Medicine [address] [place] [address] [address] Result Notification 07/31/2024 3:00 PM EDT Nurse Visit Cardiology [address] [place] [address] Tiffany Nurse Saran [facility] Palpitations; Pulmonary hypertension (HCC) 07/31/2024 1:04 PM EDT - 07/31/2024 11:59 PM EDT Hospital Encounter Radiology [address] [place], [place] [id number] Primary pulmonary hypertension (HCC) [I27.0] Discharge Disposition: Home 07/31/2024 Radiology Radiology [address] [place] [address] Ca Tuttle, RT(R) Radiology XR 07/30/2024 Travel 07/18/2024 Get Medical Advice Cardiology [address] [place], [place] [phone] Lorenzo Lora MD A question for Dr. Lora 07/16/2024 Telephone Cardiology [address] [place] [address] Lorenzo Lora MD from Last 3 Months Immunizations Immunization Administration Dates Next Due tetanus diphtheria pertussis (Tdap) vaccine, age 7+ yr (ADACEL, BOOSTRIX) 04/08/2022 Family History Medical History Relation Comments Prostate Cancer Father Arrythmias Maternal Aunt 1 afib Lymphoma Maternal Aunt 2 Leukemia Maternal Grandfather Arrythmias Maternal Grandmother afib Heart Failure Maternal Grandmother Cancer in lymph nodes Maternal Uncle 1 cancer of unknown primary Maternal Uncle 2 other Maternal Uncle 3 Arrythmias Mother afib Heart Mother pulmonary embolism [Other] Mother Breast Cancer Paternal Aunt Heart Attack Paternal Grandfather Sudden Cardiac Paternal Grandfather Relation Status Comments Father Maternal Aunt 1 Maternal Aunt 2 Alive Maternal Grandfather Maternal Grandmother Maternal Uncle 1 Maternal Uncle 2 Maternal Uncle 3 Mother Paternal Aunt Alive Paternal Grandfather (Age 62) Social History Tobacco Use Types Packs/Day Years [...] is lower risk 6 08/08/2023 Data from: https://www.neighborhoodatlas.medicine.[facility].edu/. Last address used for calculation [address] [facility] 08/08/2023 Comments No Sex and Gender [...] 3.4 oz) 10/08/2024 2:26 PM EDT Height 166.2 cm (5' 5.44 ) 10/08/2024 2:00 PM ED T Body Mass Index 32.21 10/08/2024 2:00 PM EDT Plan of Treatment Health Maintenance Due Date Last Done Comments Anxiety Screening 1983 Depression Screening 1983 HIV Screening 1983 Hepatitis C Screening 1983 CT Colonography 2010 Cologuard (FIT-DNA) 2010 Colonoscopy 2010 Colorectal Cancer Screening 2010 Fecal Occult Blood 2010 Sigmoidoscopy 2010 Pneumococcal Vaccine: 50+ (1 of 1 - PCV) 2015 Shingrix Vaccine (1 of 2) 2015 Cervical Cancer Screening 04/25/20192017, 04/25/2018, 02/06/2014, Additional history exists Covid-19 Vaccine ( - 2023-2 5 season) 2024 Influenza Vaccine (Season Ended) 2025 Mammogram Screening 02/08/2025 02/09/2024, 10/30/2020, 01/14/2019, Additional history exists Diabetes Screening 07/04/2027 07/04/2024, 1 06/24/2023, 04/17/2018, Additional history exists Lipid Screening 07/04/2029 07/04/2024, 04/23/2024 DTaP,Tdap,Td Vaccine (2 - Td or Tdap) 04/08/2032 04/08/2022 Goals Goal Patient Goal Type Associated Problems Recent Progress Patient-Stated? Author Blood Pressure < 130/80 Blood Pressure 138/72( 025 2:26 PM EDT) Lorenzo Braxton MD Procedures Procedure Name Priority Date/Time Associated Diagnosis Comments SIX MINUTE WALK Routine 10/08/2024 2:47 PM EDT Primary pulmonary hypertension (HCC) CT CHEST WO IVCON Routine 10/05/2024 11: 48 AM EDT Lung nodules HOLTER REPORT 07/31/2024 2:18 PM EDT HOLTER MONITOR 48 HOUR Routine 07/31/2024 2:18 PM EDT Palpitations Pulmonary hypertension (HCC) LVEF TRANSTHORACIC ECHO Routine 07/31/2024 1:43 PM EDT ECHO Routine 07/31/2024 1:43 PM EDT Palpitations Pulmonary hypertension (HCC) XR CHEST 2V FRONTAL/LAT Routine 07/31/2024 1:23 PM EDT Primary pulmonary hypertension (HCC) COMPREHENSIVE METABOLIC PANEL Routine 07/04/2024 4:51 PM EST Palpitations Pulmonary hypertension (HCC) LIPID PANEL, FASTING Routine 07/04/2024 4:51 PM EST Palpitations Pulmonary hypertension (HCC) PAP FLUID CERVICAL DIAGNOSTIC Routine 04/25/2018 12:00 AM EST from Last 3 Months or Most Recently Relevant to Health Maintenance Results * SIX MINUTE WALK (10/08/2024 2:47 PM EDT) 10/08/2024 2:47 PM EDT Yair Escudero MD - 10/08/2024 2:47 PM EDT Yair [...] Trend (Previous Encounters) None SIGNATURE: Aries Flores, COAL MINER PATIENT NAME: Iris Thomason DATE: October 08, 2024 TIME: 2:47 PM [...] needed. SIGNATURE: Yair Dominguez MD PATIENT NAME: Iris Thomason DATE: October 08, 2024 TIME: 2:53 PM us Reyna Buck SORTER LUMBER STRAIGHTENER.MAINTENANCE MILLWRIGHT SCHEDULED PROCEDURES Final Result * (ABNORMAL) CT CHEST WO IVCON (10/05/2024 11:48 AM EDT) Radiology Result ACTIONABLE (Actionabl e) DIVISION OF [...] obtained in 12 months --END OF FINDING-- Senior Electrical Estimator: [place] Transcribe Date/Time: Oct 05 2024 2:52P Dictated by : NITESH PAYNE MD This examination was interpreted and the report reviewed and electronically signed by: NITESH PAYNE MD on Oct 05 2024 2:59PM EST Narrative 10/05/2024 3:02 PM EDT * * *Final Report* * * DATE OF EXAM: Oct 05 2024 11:48AM [facility] 0541 - CT CHEST WO IVCON / [...] lesions. Upper abdomen: Punctate right renal calculus. Concierge Manager (topogram) images: Unremarkable. Procedure Note Provider, [facility] - 10/05/2024 * * *Final Report* * * DATE OF EXAM: Oct 05 2024 11:48AM [facility] 0541 - CT CHEST WO IVCON / [...] lesions. Upper abdomen: Punctate right renal calculus. Concierge Manager (topogram) images: Unremarkable. IMPRESSION IMPRESSION: Linear band [...] obtained in 12 months --END OF FINDING-- Senior Electrical Estimator: DALLAS Transcribe Date/Time: Oct 05 2024 2:52P Dictated by : NITESH PAYNE MD This examination was interpreted and the report reviewed and electronically signed by: NTIESH PAYNE MD on Oct 05 2024 2:59PM EST us Kaity Granado SORTER LUMBER STRAIGHTENER.STOREPERSON CT-PAMA Final R esult * HOLTER REPORT (07/31/2024 2:18 PM EDT) 07/31/2024 2:18 PM EDT us Lorenzo Lora MD HOLTER Final Result * HOLTER MONITOR 48 HOUR (07/31/2024 2:18 PM EDT) 07/31/2024 2:18 PM EDT [facility]ative [facility] - 08/15/2024 8:29 AM EDT IMPRESSIONS AND FINDINGS: Sinus rhythm with periods of sinus bradycardia. Max HR 115 bpm. Minimum HR 53 Average HR 68 bpm. Rare SVE seen as singles, couplets, triplets and bigeminal cycles. Patient activated event marker correlating with sinus rhythm (HR 60-80 bpm) and PACs. Patient noted symptoms of sqeezing in chest, loss of breath and flutters. Scanned on 08/08/2024 Jennifer COE Confirmed by WAQAR CROCKER MD ([id number]) on 08/15/2024 8:28:58 AM Hookup Date: 20240731 Hookup Time: [id number] Recording Duration: 275147 S Minimum Heart Rate: 53 BPM Minimum Heart Rate Date/Time: 202408015136 Maximum Heart Rate: 115 BPM Maximum Heart Rate Date/Time: 2024080236 Average Heart Rate: 68 BPM Longest RR: 1.340 S Longest RR DATE/TIME: 20240801 092028 QRS complexes: 211813 Ventricular Ectopics: 0 Ventricular Isolated Beats: 0 Ventricular Bigeminal Cycles: 0 Ventricular Couplets: 0 Ventricular Runs: 0 Ventricular Beats in Runs: 0 Supraventricular Ectopics: 61 Supraventricular Isolated Beats: 50 Supraventricular Couplets: 4 Supraventricular Runs: 1 Supraventricular Beats in Runs: 3 Longest Supraventricular Run Date/Time: 20240801 Fastest Supraventricular Run, Date/Time: 20240801 Overreading Physician: WAQAR CROCKER MD us Lorenzo Lora MD HOLTER Final Result [facility] [address] [place] [address] * ECHO (07/31/2024 1:43 PM EDT) 07/31/2024 1:43 PM EDT Impressions [facility] - 07/31/2024 2:33 PM EDT CONCLUSIONS: - Exam indication: PHTN - The left ventricle is normal in size. Left ventricular systolic function is normal. EF = 63 5% (2D biplane) - The right ventricle [...] pericardial effusion today, otherwise similar resting findings. * * * Final * * * [facility] - 07/31/2024 2:33 PM EDT Echocardiography Report: Transthoracic Echo [facility] Date of service: 07/31/2024 1:43:38 PM COLLECTOR Ordering physician: LOERNZO LORA Indication: PHTN Symptom(s): Palpitations Technologist: Judy Contreras Interpreting physician: Michael Garcia MD PATIENT: Name: MRS. IRIS THOMASON : 1965 Age: 59 years Gender: F History of hypertension and dyslipidemia. Primary rhythm: sinus. Height: 168.90 cm BSA: 2.04 m Weight: 88.63 kg BMI: 31.1 kg/m Heart rate 68 bpm Blood pressure 131/92 mmHg Color Doppler was utilized to interrogate the cardiac valves assessed and spectral Doppler was utilized to determine the flow velocities and pressure gradients reported in this exam. Myocardial strain analysis was performed in this exam to aid in the assessment of cardiac function. MEASUREMENTS: Value Indexed Normal Max aortic dimension 3.1 cm Ao < 3.8 Left atrial volume 53 ml (Martin's) 26 ml/m Myrna <= 34 LV ID (diastole) 4.8 cm (2D) 2.36 cm/m LV ID (systole) 2.2 cm (2D) 1.09 cm/m IVS, leaflet tips 0.9 cm (2D) Posterior wall thickness 0.9 cm (2D) Left ventricular mass 152 g (2D) 75 g/m Global peak long strain -15.1 % LV stroke volume 52 ml (2D biplane) LV end diastolic volume 81 ml (2D biplane) 39.9 ml/m 29<=EDVi<62 LV end systolic volume 30 ml (2D biplane) 14.6 ml/m Ejection Fraction 63 % (2D biplane) EF [...] pericardial effusion adjacent to the right atrium. us Lorenzo Lora MD ECHO Final Result [facility] [address] [place] [address] * LVEF TRANSTHORACIC ECHO (07/31/2024 1:43 PM EDT) LV Ejection Fraction 63 % [facility] Comment: (2D biplane) EF > 54 An LV Ejection Fraction of > 50% is normal 07/31/2024 1:43 PM EDT Lorenzo Lora MD LVEF RESULTS Final Result [facility] [address] [place] [address] * (ABNORMAL) XR CHEST 2V FRONTAL/LAT (07/31/2024 1:23 PM EDT) Radiology Result ACTIONABLE (Actionabl e) DIVISION OF [...] next steps. Anatomical Region Laterality Modality Chest Other 07/31/2024 1:23 PM EDT Impressions 07/31/2024 3:07 PM EDT IMPRESSION: 1. There is a questionable nodular opacity seen in the left mid to lower lung, adjacent to the left lateral heart border. This could represent overlap of normal vascular and osseous structures or a pulmonary nodule. Would advise further evaluation with a CT of the chest without contrast to better assess this area. ACTIONABLE RESULT: FOLLOW-UP Acuity: Actionable Findings: Thoracic-Lung nodules Routing code: RI_1 Recommendation: CT Chest WO IVCON Time Frame: 4-6 weeks COMMUNICATION: Results will be communicated with the ordering provider via [employer] staff message or phone message by Imaging [facility] within 2 business days of report finalization. --END OF FINDING-- Algorithms for management of incidental imaging findings can be found on the [facility] Intranet Sharepoint site at: [email or web address]%20Findi ngs%20at%[email or web address] Senior Electrical Estimator: D[place] Transcribe Date/Time: Jul 31 2024 3:02P Dictated by : AUBREE JUAREZ MD This examination was interpreted and the report reviewed and electronically signed by: AUBREE JUAREZ MD on Jul 31 2024 3:05PM EST Narrative 07/31/2024 3:07 PM EDT * * *Final Report* * * DATE OF EXAM: Jul 31 2024 1:23PM [id number] [id number] - XR CHEST 2V FRONTAL/LAT / PROCEDURE REASON: Primary pulmonary hypertension (HCC) * * * * Physician Interpretation * * * * EXAMINATION: CHEST RADIOGRAPH (2 VIEW FRONTAL & LATERAL) CLINICAL HISTORY: Primary pulmonary hypertension. Chronic cough. MQ: XC2_6 EXAM DATE/TIME: 07/31/2024 1:23 PM COMPARISON: No relevant prior studies available. RESULT: Lines, tubes, and devices: None. Lungs and pleura: There is a questionable nodular opacity seen in the left mid to lower lung, adjacent to the left lateral heart border. This could represent overlap of normal vascular and osseous structures or a pulmonary nodule. Would advise further evaluation with a CT of the chest without contrast to better assess this area. No pleural effusion. No pneumothorax. Cardiomediastinal silhouette: Normal cardiomediastinal silhouette. Bones and soft tissues: Unremarkable. Procedure Note Provider, [facility] - 07/31/2024 * * *Final Report* * * DATE OF EXAM: Jul 31 2024 1:23PM [id number] [id number] - XR CHEST 2V FRONTAL/LAT / PROCEDURE REASON: Primary pulmonary hypertension (HCC) * * * * Physician Interpretation * * * * EXAMINATION: CHEST RADIOGRAPH (2 VIEW FRONTAL & LATERAL) CLINICAL HISTORY: Primary pulmonary hypertension. Chronic cough. MQ: XC2_6 EXAM DATE/TIME: 07/31/2024 1:23 PM COMPARISON: No relevant prior studies available. RESULT: Lines, tubes, and devices: None. Lungs and pleura: There is a questionable nodular opacity seen in the left mid to lower lung, adjacent to the left lateral heart border. This could represent overlap of normal vascular and osseous structures or a pulmonary nodule. Would advise further evaluation with a CT of the chest without contrast to better assess this area. No pleural effusion. No pneumothorax. Cardiomediastinal silhouette: Normal cardiomediastinal silhouette. Bones and soft tissues: Unremarkable. IMPRESSION IMPRESSION: 1. There is a questionable nodular opacity seen in the left mid to lower lung, adjacent to the left lateral heart border. This could represent overlap of normal vascular and osseous structures or a pulmonary nodule. Would advise further evaluation with a CT of the chest without contrast to better assess this area. ACTIONABLE RESULT: FOLLOW-UP Acuity: Actionable Findings: Thoracic-Lung nodules Routing code: RI_1 Recommendation: CT Chest WO IVCON Time Frame: 4-6 weeks COMMUNICATION: Results will be communicated with the ordering provider via [facility] staff message or phone message by Imaging Support [facility] within 2 business days of report finalization. --END OF FINDING-- Algorithms for management of incidental imaging findings can be found on the [facility] Intranet Sharepoint site at: [email or web address]%20Findi ngs%20at%20Imaging/Forms/[email or web address].[email or web address] Senior Electrical Estimator: D[place] Transcribe Date/Time: Jul 31 2024 3:02P Dictated by : AUBREE JUAREZ MD This examination was interpreted and the report reviewed and electronically signed by: AUBREE JUAREZ MD on Jul 31 2024 3:05PM EST us Reyna Buck SORTER LUMBER STRAIGHTENER.MAINTENANCE MILLWRIGHT RAD-PAMA Final Resu lt * (ABNORMAL) LIPID PANEL BASIC (07/04/2024 4:51 PM EST) Cholesterol, Total 217(H) <200 mg/dL 07/05/2024 9:21 PM EST [facility] Comment: <200 mg/dL, Desirable 200-239 mg/dL, Borderline high >239 mg/dL, High Triglyceride 119 <150 mg/dL 07/05/2024 9:21 PM [facility] Comment: <150 mg/dL, Normal 150-199 mg/dL, Borderline high 200-499 mg/dL, High >499 mg/dL, Very high HDL Cholesterol 71 >39 mg/dL 9:21 PM [facility] Comment: 40-59 mg/dL, Acceptable >59 mg/dL, High: Negative risk factor for coronary heart disease <40 mg/dL, Low: Positive risk factor for coronary heart disease Non HDL Cholesterol 146(H) <130 mg/dL 07/05/2024 9:21 PM [facility] Comment: <130 mg/dL, Optimal 130-159 mg/dL, Near optimal/above optimal 160-189 mg/dL, Borderline high 190-219 mg/dL, High >219 mg/dL, Very high Secondary prevention optimal non HDL Cholesterol levels are recommended to be <100 mg/dL Fasting Time 3.5 hrs 07/05/2024 9:21 PM [facility] VLDL Cholesterol 24 <30 mg/dL 07/05/19 9:21 PM [facility] TC:HDL Ratio 3.06 <5.10 07/05/2024 9:21 PM [facility] LDL Cholesterol, Calculated 122(H) <100 mg/dL 07/05/2024 9:21 PM [facility] Comment: <100 mg/dL, Optimal 100-129 mg/dL, Near optimal/above optimal 130-159 mg/dL, Borderline high 160-189 mg/dL, High >189 mg/dL, Very high Secondary prevention optimal LDL Cholesterol levels are recommended to be < 70 mg/dL LDL:HDL Ratio 1.72 <2.54 07/05/2024 9:21 PM [facility] Comment: Reference: 1. National Cholesterol Education Program ATP III Guideline At-A-Glance Quick Desk Reference: National Heart[facility]. National Institutes of Health. 2001: NIH Publication No. 01-3305. 2. An International Atherosclerosis Society position paper: global recommendations for the management of dyslipidemia: executive summary, Atherosclerosis. 2014: 232(2):410-413. Blood BLOOD SPECIMEN / Unknown Venipuncture / Unknown 07/04/2024 4:51 PM EST 07/04/2024 4:52 PM EST Lorenzo Lora MD LABORATORY Final Result [facility] [address] [facility] Desk [place] [id number], [place] * (ABNORMAL) COMPREHENSIVE METABOLIC PANEL (07/04/2024 4:51 PM EST) [facility] Protein, Total 7.0 6.3 - 8.0 g/dL 07/05/2024 9:21 PM EST [facility] Albumin 4.5 3.9 - 4.9 g/dL 07/05/2024 9:21 PM EST [facility] Calcium, Total 10.0 8.5 - 10.2 mg/dL 07/05/2024 9:21 PM EST [facility] Bilirubin, Total 0.3 0.2 - 1.3 mg/dL 07/05/2024 9:21 PM EST [facility] Alkaline Phosphatase 99 34 - 123 U/L 07/05/2024 9:21 PM EST [facility] AST 33 13 - 35 U/L 07/05/2024 9:21 PM EST [facility] ALT 26 7 - 38 U/L 07/05/2024 9:21 PM EST [facility] Glucose 85 74 - 99 mg/dL 07/05/2024 9:21 PM EST [facility] Comment: The [place] Diabetes Association (ADA) provides guidance for cutoff values for fasting glucose and random glucose. The ADA defines fasting as no caloric intake for at least 8 hours. Fasting plasma glucose results between 100 to 125 mg/dL indicate increased risk for diabetes (prediabetes). Fasting plasma glucose results greater than or equal to 126 mg/dL meet the criteria for diagnosis of diabetes. In the absence of unequivocal hyperglycemia, results should be confirmed by repeat testing. In a patient with classic symptoms of hyperglycemia or hyperglycemic crisis, random plasma glucose results greater than or equal to 200 mg/dL meet the criteria for diagnosis of diabetes. Reference: Standards of Medical Care in Diabetes 2016, [place] [employer] Association. Diabetes Care. 2016.39(Suppl 1). BUN 17 7 - 21 mg/dL 07/05/2024 9:21 PM EST [facility] Creatinine 0.92 0.58 - 0.96 mg/dL 07/05/2024 9:21 PM EST [facility] Sodium 144 136 - 144 mmol/L 07/05/2024 9:21 PM EST [facility] Potassium 5.8(H) 3.7 - 5.1 mmol/L 07/05/2024 9:21 PM EST [facility] Chloride 108(H) 98 - 107 mmol/L 07/05/2024 9:21 PM EST [facility] CO2 22 22 - 30 mmol/L 07/05/2024 9:21 PM EST [facility] Anion Gap 14 8 - 15 mmol/L 07/05/2024 9:21 PM EST [facility] Estimated Glomerular Filtration Rate 72 >=60 mL/min/1.7 3m 07/05/2024 9:21 PM EST [facility] Comment:Estimated Glomerular Filtration Rate (eGFR) is calculated using the 2020 CKD-EPI creatinine equation. This equation utilizes serum creatinine, sex, and age as parameters. The creatinine assay has traceable calibration to isotope dilution- mass spectrometry. Refer to KDIGO guidelines for clinical interpretation. In patients with unstable renal function, e.g. those with acute kidney injury, the eGFR may not accurately reflect actual GFR. Blood BLOOD SPECIMEN / Unknown Venipuncture / Unknown 07/04/2024 4:51 PM EST 07/04/2024 4:52 PM EST us Lorenzo Lora MD LABORATORY Final Result [facility] [address] [place] [address], * (ABNORMAL) PAP FLUID CERVICAL DIAGNOSTIC (04/25/2018 12:00 AM EST) [employer] ADDITIONAL PROCEDURES PRESENT ---Abnormal Pap Test - Epithelial Cell Abnormality--- Specimen originated from [facility] Specimen #: [id number] Submitting Physician: HEATHER MILLER, ([id number]) SPECIMEN SUBMITTED A: CERVICAL, DIAGNOSTIC, FLUID FINAL DIAGNOSIS A. CERVICAL, DIAGNOSTIC, FLUID Satisfactory for interpretation. Excess blood. Epithelial cell abnormality Atypical glandular cells, endocervical type. Matt Abdalla M.D. (Electronic Signature) ADDITIONAL PROCEDURE(S) HUMAN PAPILLOMA VIRUS Date Ordered: 04/26/2018 Date Reported: 04/27/2018 Procedure Results and Interpretation Negative for HPV DNA high risk type 16 by PCR. Negative for HPV DNA high risk type 18 by PCR. Negative for HPV DNA high risk types: 31,33,35,39,45,51, 52,56,58,59,66,68 by PCR. This test was developed and its performance characteristics determined by [facility]'s [facility] [place] ([facility]). It has not been cleared or approved by the FDA. [facility] is regulated under CLIA as qualified to perform high-complexity testing. This test is used for clinical purposes. It should not be regarded as investigational or for research. CLINICAL DATA HPV TESTING: YES, AUTOMATIC HPV PATIENTS OVER 30 Menstrual History: Post-Menopausal GROSS DESCRIPTION Glacial Acetic Acid added. STAINS A: CERVICAL, DIAGNOSTIC, FLUID THIN PREP REGISTERED RADIATION THERAPIST x 2 Date of Report: 05/10/2018 Date of Procedure: 04/25/2018 Date of Receipt: 04/26/2018 Submitted by: HEATHER MILLER, ([id number]) Location: [facility] PROC A3 Diagnostic interpretation performed at [facility], [address] [place] [address]. The Pap Smear is a screening test for cervical cancer. 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
--- OUTSIDE RECORDS SUMMARY | 2024-10-13 00:59 | XMS_ITS | Encounter Summary ---
Author Organization [facility] Address [address] [place] [address] Care Team Providers Care Doctor Of Medicine Name Role Phone Gautam Wren DO Primary Care Provider [phone] Navneet Hernandez MD Unavailable [phone] Lorenzo Lora MD Unavailable Source Comments In the event this information is protected by the Federal Confidentiality of Alcohol and Drug AbusePatient Records regulations: The Federal rules restrict any use of the information to criminally investigate or prosecute any alcohol or drug abuse patient.[facility] Encounter Details Date Type Department Care Team (Late st Contact Info) Description 09/15/2023 Patient [facility] -[address] [place] [address] Dariana Maldonado RPh At your next appointment, choose [facility]. Social History Tobacco Use Types Packs/Day Years Used Date Smoking Tobacco: Never Smokeless Tobacco: Never Alcohol Use Standard Drinks/Week Comments No 0 (1 standard drink = 0.6 oz pur e alcohol) Area Deprivation Index Answer Date Noe rded National Score (1-100), lower number is lower ri sk 73 08/08/2023 State Score (1-10), lower number is lower risk 6 08/08/2023 Data from: https://www.neighborhoodatlas.[facility]/. Last address used for calculation [address] 08/08/2023 Comments No Sex and Gender [...] on filedocumented in this encounter Care Teams Doctor Of Medicine Relationship Specialty Start Date End Date Gautam Wren DO [address] [place] [address] PCP - General 07/22/03 Navneet Hernandez MD [address] [place] [address] Marketing Assistant Retail Division 08/05/23 Lorenzo Lora MD [address] [place] [place] [id number] Primary Staff Physician Cardiology 07/04/24 documented as of this encounter
--- OUTSIDE RECORDS SUMMARY | 2024-10-13 00:59 | XMS_ITS | Encounter Summary ---
Author Organization [facility] Address [address] [place] [address] Care Team Providers Care Driver Courier Name Role Phone Gautam Wren DO Primary Care Provider [phone] Navneet Hernandez MD Unavailable [phone] Lorenzo Lora MD Unavailable Source Comments In the event this information is protected by the Federal Confidentiality of Alcohol and Drug AbusePatient Records regulations: The Federal rules restrict any use of the information to criminally investigate or prosecute any alcohol or drug abuse patient.[facility] Encounter Details Date Type Department Care Team (Late st Contact Info) Description 10/05/2024 Results Follow-Up [facility] [place] [facility] [address] [place] [address] Kaity Granado, PEDIATRICIAN MANAGING PARTNER.BOBBIN HANDLER [address] [place] [address] Social History Tobacco Use Types Packs/Day Years [...] is lower risk 6 08/08/2023 Data from: https://www.neighborhoodatlas.medicine.[facility]/. Last address used for calculation [address] 08/08/2023 Comments No Sex and Gender Information Value Date Recorded Sex Assigned at Not on file Legal Sex Female 9:46 AM EST Gender Identity Not on file Sexual Orientation Not on file documented as of this encounter Functional Status * Are you deaf or do you have serious difficulty hearing? Answer Date of Assessment Author No 11/25/2014 2:54 PM EDT Ashwini Setvens MA * Are you blind or do [...] on filedocumented in this encounter Care Teams Driver Courier Relationship Specialty Start Date End Date Gautam Wren DO [address] [place] [address] PCP - General 07/22/03 Navneet Hernandez MD [address] [place] [address] Narrow Gauge Operator 08/05/23 Lorenzo Lora MD [address] [place] [address] Primary Staff Physician Cardiology 07/04/24 documented as of this encounter
--- OUTSIDE RECORDS SUMMARY | 2024-10-13 00:59 | XMS_ITS | Clinical Summary ---
Author Organization [facility] Address [address] [facility] [place] [address] Care Team Providers Care Vascular Surgery Physician Name Role Phone Kencee Gautam Sonny PEDRO Primary Care Provider Allergies Active Allergy Reactions Criticality Noted Date Comments Amoxicillin-Pot Clavulanate Diarrhea 12/22/19 23 Other Reaction(s): Unknown Azithromycin 10/07/2014 Other Reaction(s): GI Upset Severe diarrhea Budesonide-Formoterol Fumarate 12/21 Other Reaction(s): Blood pressure Celecoxib 12/21/2022 Other Reaction(s): Unknown Cephalexin 04/26/2014 Other Reaction(s): other, Unknown Cephalosporins 12/25/2003 Other Reaction(s): Unknown Clavulanic Acid 07/12/2022 Other Reaction(s): diarrhea Clonidine 07/12/2022 Other Reaction(s): Spasm Other Reaction(s): eye brown pain, spasms Formoterol 07/12/2022 Other Reaction(s): blood pressure Iodinated Contrast Media High 01/21/2014 Other Reaction(s): Other: See Comments, Unknown chest pain , increased HR, increased BP Other Reaction(s): Other: See Comments, Unknown Reaction Levofloxacin Diarrhea 12/21/2022 Other Reaction(s): Unknown Lorazepam 12/21/2022 Other Reaction(s): Unknown Methylprednisolone 12/21/2022 Other Reaction(s): Unknown Metronidazole Diarrhea 10/21/2014 Other Reaction(s): Unknown Had diarrhea and dizziness and funny feeling in head and arms Morphine 03/11/2014 Other Reaction(s): Other: See Comments, Unknown CHEST PAIN AND INCREASED BLOOD PRESSURE Oxybutynin 04/26/2014 Other Reaction(s): other, Unknown Penicillins 04/26/2014 Other Reaction(s): GI Upset, other Severe diarrhea Rofecoxib 07/12/2022 Sulfamethoxazole 07/12/2022 Other Reaction(s): itching Sulfamethoxazole-Trimethoprim Itching 2022 Trimethoprim 07/12/2022 Other Reaction(s): itching Valproic Acid 07/12/2022 Other Reaction(s): Unknown Wound Dressing Adhesive 01/21/2014 Other Reaction(s): Other: See Comments blisters Medications nebivolol (Bystolic) 5 MG tablet Take 2.5 mg by mouth in the morning. Active gabapentin (Neurontin) 100 MG capsule Take 100 mg by mouth in the morning and 100 mg before bedtime. Active esomeprazole (NexIUM) [address] capsule Take 20 mg by mouth in the morning. Take before meals. Do not open capsule.. Active loperamide (Imodium A-D) 2 MG tablet Take 2-4 mg by mouth 4 (four) times a day as needed for diarrhea Active magnesium 200 MG tablet Take by mouth Active ciprofloxacin (Cipro) 500 MG tabletIndicatio ns:E-coli UTI Take 1 tablet (500 mg) by mouth in the morning and 1 tablet (500 mg) before bedtime. Do all this for 7 days. 14 tablet 09/26/19 25 Encounters Date Type Department Care Team Description 09/18/2024 Results Follow-Up [facility] [address] [place] [id number] Keiko Cordova, DO E-coli UTI 09/14/2024 External Result Encounter [facility] Unsolicited Keiko Cordova, 09/14/2024 Telephone [facility] [address] [place] [phone] Marilee Cr MA 09/13/2024 Results Follow-Up [facility] [address] [place] [address] Keiko Cordova, 09/11/2024 9:00 AM EDT Procedure Visit [facility] [address] [place] [address] Keiko Cordova, DO Thickened endometrium; Dysuria 09/11/2024 Travel 07/25/2024 Telephone [facility] [address] [place] [address] Keiko Cordova, DO 07/19/2024 Telephone [facility] [address] [place] [address] Keiko Cordova, DO 07/16/2024 Telephone [facility] [address] [facility] [address] [place] [address] Keiko Cordova, DO from Last 3 Months Family History Medical History Relation Name Comments Breast cancer Father's Sister Relation Name Status Comments Father's Sister Social History Tobacco Use Types Packs/Day Years Used Date Smoking Tobacco: Never Smokeless Tobacco: Never Tobacco Cessation:Counseling Given: Not Answered Alcohol Use Standard Drinks/Week Comments Not Currently 0 (1 standard drink = 0.6 oz pur e alcohol) PHQ-2 Answer Date Recorded Patient Health Questionnaire-2 Score 0 08/02/2023 Comments No Sex and Gender Information Value Date Recorded Sex Assigned at Not on file Legal Sex Female 7:01 PM EDT Gender Identity Female 07/21/2022 7:01 PM EDT Sexual Orientation Not on file Last Filed Vital Signs Vital Sign Reading Time Taken Comments Blood Pressure 120/72 09/11/2024 9:05 AM EDT Pulse - - Temperature - - Respiratory Rate - - Oxygen Saturation - - Inhaled Oxygen Concentration - - Weight 87.5 kg (193 lb) 09/11/2024 9:05 AM EDT Height 170.2 cm (5' 7 ) 06/13/2024 11:15 AM EST Body Mass Index 30.23 06/13/2024 11:15 AM EST Plan of Treatment Upcoming Encounters Date Type Department Care Team (Late st Contact Info) Description 01/22/2025 9:30 AM EDT Office Visit [facility] [address] [facility] [address] [place] [address] Keiko Cordova, DO [address] [facility] [address] [place] [address] Procedures Procedure Name Priority Date/Time Associated Diagnosis Comments AEROBIC JEOVANNY CHARGE (NMIC56) Routine 09/14/2024 1:10 PM EDT CULTURE, URINE, ROUTINE Routine 09/14/2024 1:10 PM EDT ENDOMETRIAL BIOPSY Routine 09/11/2024 9: 19 AM EDT Thickened endometrium PATHOLOGY REPORT Routine 09/11/2024 9:16 AM EDT Thickened endometrium from Last 3 Months Results * (ABNORMAL) AEROBIC JEOVANNY CHARGE (NMIC56) (09/14/2024 1:10 PM EDT) AMIKACIN <16(S) 09/16/2024 8:28 AM EDT [facility] AMOXACILLIN/K CLAVULANATE <8/4(S) 09/16/2024 8:28 AM EDT [facility] AMPICILLIN <8(S) 09/16/2024 8:28 AM EDT [facility] AMPICILLIN/SULBACT AM <4/2(S) 09/16/2024 8:28 AM EDT [facility] AZTREONAM <4(S) 09/16/2024 8:28 AM EDT [facility] CEFAZOLIN <2(S) 09/16/2024 8:28 AM EDT [facility] CEFEPIME <2(S) 09/16/2024 8:28 AM EDT [facility] CEFTAZIDIME <1(S) 09/16/2024 8:28 AM EDT [facility] CEFTAZIDIME/AVIBAC GALVAN <4(S) 09/16/2024 8:28 AM EDT [facility] CEFTOLOZANE/TAZOBA CTAM <2(S) 09/16/2024 8:28 AM EDT [facility] CEFTRIAXONE <1(S) 09/16/2024 8:28 AM EDT [facility] CEFUROXIME <4(S) 09/16/2024 8:28 AM EDT [facility] CIPROFLOXACIN <0.25(S) 09/16/2024 8:28 AM EDT [facility] ERTAPENEM <0.5(S) 09/16/2024 8:28 AM EDT [facility] GENTAMICIN <2(S) 09/16/2024 8:28 AM EDT [facility] LEVOFLOXACIN <0.5(S) 09/16/2024 8:28 AM EDT [facility] MEROPENEM <1(S) 09/16/2024 8:28 AM EDT [facility] MEROPENEM/VABORBAC GALVAN <2(S) 09/16/2024 8:28 AM EDT [facility] NITROFURANTOIN <32(S) 09/16/2024 8:28 AM EDT [facility] PIPERACILLIN/TAZOB ACTAM <8(S) 09/16/2024 8:28 AM EDT [facility] TETRACYCLINE <4(S) 09/16/2024 8:28 AM EDT [facility] TIGECYCLINE <2(S) 09/16/2024 8:28 AM EDT [facility] TOBRAMYCIN <2(S) 09/16/2024 8:28 AM EDT [facility] TRIMETHOPRIM/SULFA METHOXAZOLE <0.5/9.5( S) 09/16/2024 8:28 AM EDT [facility] Urine Urine specimen obtained by clean catch procedure / Unknown 09/14/2024 1:10 PM EDT 09/14/2024 1:10 PM EDT Comment:Clean-Voided Midstre am Keiko Cordova DO [facility] Final Resul t [facility] [address] [place] [address], [facility] [address] [place] [address] * Urine culture (09/14/2024 1:10 PM EDT) [facility] ORGANISM Escherichia coli 09/16/2024 8:28 AM EDT [facility] COLONY COUNT >100,000 09/16/2024 8:28 AM EDT [facility] Urine Urine specimen obtained by clean catch procedure / Unknown 09/14/2024 1:10 PM EDT 09/14/2024 1:10 PM EDT Comment:Clean-Voided Midstre am Keiko Cordova DO LAB MICROBIOLOGY - GENERAL ORDERABLES Final Result Performing Organization Address City/State/[facility] Co de Phone Number [facility] [address] [place] [address], [facility] [address] [facility] [place] [address] * Endometrial biopsy (09/11/2024 9:19 AM EDT) Keiko Shea DO - 09/11/2024 9:19 AM EDT Keiko Cordova DO 09/11/2024 9:20 AM Endometrial biopsy Date/Time: 09/11/2024 9:19 AM Performed by: Keiko Cordova DO Authorized by: Keiko Cordova DO Consent: Consent obtained: verbal Consent given by: patient Risks discussed: bleeding, infection and need for repeat procedure Patient agrees, verbalizes understanding, and wants to proceed: yes Indications: Indications: thickened endometrium Pre-procedure: Premeds: acetaminophen Procedure: A bimanual exam was performed: yes Uterus size: non-gravid Prepped with: Betadine Tenaculum used: yes A local block was performed: no Cervix dilated: no Number of passes: 2 Findings: Cervix: normal Uterus depth by sound (cm): 8 Specimen collected: specimen collected and sent to pathology Patient tolerance: tolerated well, no immediate complications Keiko Cordova DO IN CLINIC/BEDSIDE ORDERABLE S Final Result * Pathology Report (09/11/2024 9:16 AM EDT) Material Submitted: Comment [facility] Comment: Material submitted: . endometrium - ENDOMETRIAL BIOPSY Diagnosis: Comment [facility] Comment: Diagnosis: ENDOMETRIAL BIOPSY: - BENIGN POLYP. [facility] 09/13/2024 1110 Local Electronically Signed: Comment [facility] Comment: Electronically signed: . Ambrosio Marie MD, Pathologist Gross Description: Comment [facility] Comment: Gross description: . RECEIVED IN FORMALIN LABELED WITH THE PATIENTS NAME AND EMB IS A 0.7 X 0.5 X 0.1 CM AGGREGATE OF MULTIPLE IRREGULAR FRAGMENTS OF GRIJALVA BROWN TISSUE. SUBMITTED ENTIRELY IN ONE CASSETTE. [facility]Z/BXS 09/12/2024 1311 Local Pathologist Provided ICD10 Comment [facility] Comment: Pathologist provided ICD-10: N84.0 CPT Comment [facility] Comment: CPT . [id number] Other 09/11/2024 9:16 AM EDT 09/12/2024 Narrative [facility] - 09/13/2024 3:07 PM EDT Performed at: 01 - [address] [id number] Environmental Management Specialist: Pawel Zarco MD, Phone: [phone] Keiko Cordova DO LAB PATHOLOGY ORDERABLES Fi nal Result Performing Organization Address City/State/[facility] Co de Phone Number [facility] from Last 3 Months Insurance [employer] MEDICARE ADVANTAGE Care Teams Vascular Surgery Physician Relationship Specialty Start Date End Date Gautam Wren DO PCP - General 12/21/22
--- OUTSIDE RECORDS SUMMARY | 2024-10-13 00:59 | XMS_ITS | Encounter Summary ---
Author Organization [facility] Address [address] [place] [address] Care Team Providers Care Taxi Servicer Name Role Phone Gautam Wren DO Primary Care Provider [phone] Navneet Hernandez MD Unavailable [phone] Lorenzo Lora MD Unavailable Source Comments In the event this information is protected by the Federal Confidentiality of Alcohol and Drug AbusePatient Records regulations: The Federal rules restrict any use of the information to criminally investigate or prosecute any alcohol or drug abuse patient.[facility] Reason for Visit * Reason Comments Patient Question Encounter Details Date Type Department Care Team (Late st Contact Info) Description 10/04/2024 Telephone Pulmonary Medicine [address] [id number] [place] [address] [address] [place], [place] [phone] Patient Question Social History Tobacco Use Types Packs/Day Years [...] is lower risk 6 08/08/2023 Data from: https://www.neighborhoodatlas.medicine.[facility]/. Last address used for calculation [address] 08/08/2023 Comments No Sex and Gender [...] encounter Miscellaneous Notes * Telephone Encounter - Kelsi Cedeno - 10/04/2024 1:29 PM EDT The patient contacted us, indicating that one of our nurses had advised her against undergoing the VQ Lung Scan, as she has already completed two of these tests. The patient stated that these tests were performed at [facility] at the beginning of . The patient can be reached at [phone]. She is seeking clarification regarding her appointment and is inquiring whether it is necessary to repeat the test. documented in this encounter Plan of Treatment Not on file documented as of this encounter Goals Goal Patient Goal Type Associated Problems Recent Progress Patient-Stated? Author Blood Pressure < 130/80 Blood Pressure 138/72( 025 2:26 PM EDT) No Lorenzo Lora MD documented as of this encounter Visit Diagnoses Not on filedocumented in this encounter Care Teams Taxi Servicer Relationship Specialty Start Date End Date Gautam Wren DO [address] [place] [address] PCP - General 07/22/03 Navneet Hernandez MD [address] [place] [address] Derrick Hand 08/05/23 Lorenzo Lora MD [address] [place], [place] [id number] Primary Staff Physician Cardiology 07/04/24 documented as of this encounter
--- OUTSIDE RECORDS SUMMARY | 2024-10-13 00:59 | XMS_ITS | Referral Summary ---
Author Organization [facility] Address [address] [place] [address] Care Team Providers Care Transplant Immunologist Name Role Phone Gautam Wren DO Primary Care Provider [phone] Encounters Date Type Department Care Team Description 07/16/2024 Telephone [facility] [address] [place] [address] Lupe Shane MA 07/16/2024 Orders Only [facility] [address] [place] [address] Lupe Shane MA Abnormal PFTs (pulmonary function tests) from Last 3 Months Allergies Active Allergy Reactions Criticality Noted Date [...] Active Active Problems No known active problems Social History Tobacco Use Types Packs/Day Years [...] 04/23/2024 9:16 AM EST Plan of Treatment Not on file Care Teams Transplant Immunologist Relationship Specialty Start Date End Date Gautam Wren DO [address] [place] [phone] PCP - General Family Medicine 03/05/24
--- OUTSIDE RECORDS SUMMARY | 2024-10-13 00:59 | XMS_ITS | Encounter Summary ---
Author Organization [facility] Address [address] [place] [address] Care Team Providers Care Cone Former Name Role Phone Gautam Wren DO Primary Care Provider [phone] Navneet Hernandez MD Unavailable [phone] Lorenzo Lora MD Unavailable Source Comments In the event this information is protected by the Federal Confidentiality of Alcohol and Drug AbusePatient Records regulations: The Federal rules restrict any use of the information to criminally investigate or prosecute any alcohol or drug abuse patient.[facility] Encounter Details Date Type Department Care Team (Late st Contact Info) Description 08/17/2024 Patient Msg Radiology [address] [place], [place] [id number] Provider, [facility] Appointments Scheduled Social History Tobacco Use Types Packs/Day Years Used Date Smoking Tobacco: Never Smokeless Tobacco: Never Alcohol Use Standard Drinks/Week Comments No 0 (1 standard drink = 0.6 oz pur e alcohol) Area Deprivation Index Answer Date Noe rded National Score (1-100), lower number is lower ri sk 73 08/08/2023 State Score (1-10), lower number is lower risk 6 08/08/2023 Data from: https://www.neighborhoodatlas.medicine.[facility]/. Last address used for calculation [address] [...] on filedocumented in this encounter Care Teams Cone Former Relationship Specialty Start Date End Date Gautam Wren DO [address] [place] [address] PCP - General 07/22/03 Navneet Hernandez MD [address] [place] [address] Skilled Trades Teacher 08/05/23 Lorenzo Lora MD [address] [place] [address] Primary Staff Physician Cardiology 07/04/24 documented as of this encounter
--- OUTSIDE RECORDS SUMMARY | 2024-10-13 00:59 | XMS_ITS | Encounter Summary ---
Author Organization [facility] Address [address] [place] [id number] Care Team Providers Care Nurse Private Duty Name Role Phone Gautam Wren DO Primary Care Provider [phone] Navneet Hernandez MD Unavailable [phone] Lorenzo Lora MD Unavailable Source Comments In the event this information is protected by the Federal Confidentiality of Alcohol and Drug AbusePatient Records regulations: The Federal rules restrict any use of the information to criminally investigate or prosecute any alcohol or drug abuse patient.[facility] Encounter Details Date Type Department Care Team (Late st Contact Info) Description 08/01/2024 Patient Msg Pulmonary Medicine [address] [id number] Marilee Jaramillo [address] Result Notification Social History Tobacco Use Types Packs/Day Years Used Date Smoking Tobacco: Never Smokeless Tobacco: Never Alcohol Use Standard Drinks/Week Comments No 0 (1 standard drink = 0.6 oz pur e alcohol) Area Deprivation Index Answer Date Noe rded National Score (1-100), lower number is lower ri sk 73 08/08/2023 State Score (1-10), lower number is lower risk 6 08/08/2023 Data from: https://www.neighborhoodatlas.[facility]/. Last address used for calculation [address] 08/08/2023 Comments No Sex and Gender [...] on filedocumented in this encounter Care Teams Nurse Private Duty Relationship Specialty Start Date End Date Gautam Wren DO [address] [place] [address] PCP - General 07/22/03 Navneet Hernandez MD [address] [place] [address] Edging Machine Feeder 08/05/23 Lorenzo Lora MD [address] [place] [address] Primary Staff Physician Cardiology 07/04/24 documented as of this encounter
--- OUTSIDE RECORDS SUMMARY | 2024-10-13 00:59 | XMS_ITS | Encounter Summary ---
Author Organization [facility] Address [address] [place] [address] Care Team Providers Care Clinical Trainer Name Role Phone Gautam Wren DO Primary Care Provider [phone] Navneet Hernandez MD Unavailable [phone] Lorenzo Lora MD Unavailable Source Comments In the event this information is protected by the Federal Confidentiality of Alcohol and Drug AbusePatient Records regulations: The Federal rules restrict any use of the information to criminally investigate or prosecute any alcohol or drug abuse patient.[facility] Reason for Visit * Reason Comments Radiology CT Encounter Details Date Type Department Care Team (Late st Contact Info) Description 10/05/[address] [place], [place] [id number] Lucinda Rodriguez RT(R) Radiology CT Social History Tobacco Use Types Packs/Day Years Used Date Smoking Tobacco: Never Smokeless Tobacco: Never Alcohol Use Standard Drinks/Week Comments No 0 (1 standard drink = 0.6 oz pur e alcohol) PHQ-2 Answer Date Recorded PHQ-2 score 0 10/02/2024 Area Deprivation Index Answer Date Noe rded National Score (1-100), lower number is lower ri 73 08/08/2023 State Score (1-10), lower number is lower risk 6 08/08/2023 Data from: https://www.neighborhoodatlas.[facility]/. Last address used for calculation [address] 08/08/2023 Comments No Sex and Gender [...] Ashwini Stevens MA documented in this encounter Progress Notes * Lucinda Rodriguez, RT(R) - 10/05/2024 11:45 AM EDT Radiology Service Progress Note PATIENT NAME: Rosita Brown DATE OF SERVICE: October 05, 2024 TIME: 11:45 AM PATIENT IDENTITY VERIFICATION COMPLETED USING TWO (2) IDENTIFIERS: Name and Date of confirmedby patient verbally. FALL SCREENING: Has the patient had 2 falls in the last year or 1 fall with injury or currently using an Ambulatory Assistive Device (Walker, Cane, Wheelchair, Crutches, etc.)? No PATIENT GENDER DATA: Assigned female at . status: : No status: NO. PATIENT RELEVANT IMPLANT DATA REVIEWED: Not Applicable PATIENT PRESENTS WITH AN IMPLANTABLE OR ATTACHED WINDOW INSTALLATION SUBCONTRACTOR: No RADIOLOGY DEPARTMENT: CT; Exam(s) Completed: Chest PERIPHERAL IV DATA: Not applicable SIGNED BY: RT Jenny(R) October 05, 2024 11:45 AM documented in this encounter Plan of Treatment Not on file documented as of this encounter Goals Goal Patient Goal Type Associated Problems Recent Progress Patient-Stated? Author Blood Pressure < 130/80 Blood Pressure 138/72( 025 2:26 PM EDT) No Lorenzo Lora MD documented as of this encounter Visit Diagnoses Not on filedocumented in this encounter Care Teams Clinical Trainer Relationship Specialty Start Date End Date Gautam Wren DO [address] [place] [address] PCP - General 07/22/03 Navneet Hernandez MD [address] [facility] [address] [place] [address] Roof Fixer 08/05/23 Lorenzo Lora MD [address] [place] [address] Primary Staff Physician Cardiology 07/04/24 documented as of this encounter
--- NOTE | 2024-10-13 01:00 | ECG_ITS ---
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 Measurements Intervals [place] Rate: 73 P: 20 MT: 126 QRS: 58 QRSD: 82 T: 48 QT: 394 QTc: 419 Interpretive Statements 1100 Sinus rhythm 9110 normal ECG Compared to ECG 07/06/2024 11:45:40 No significant changes Electronically Signed On 10-13-2024 6:26:08 EDT by T[place] ANDERSON M.D.
--- OUTSIDE RECORDS SUMMARY | 2024-10-13 01:01 | XMS_ITS | CCD ---
Author Organization [facility] Care Team Providers Care Ibm Mainframe Developer Name Role Phone GAUTAM DILL Unavailable GAUTAM DILL Unavailable Unavailable Gautam Dill Unavailable Aniyah, DO Florez Primary Care Provider DO Gautam Dill Attending Provider [phone] Aniyah, DO Florez Primary Care Provider Aniyah, DO Florez Attending Provider Self, Referral Attending Provider Unavailable Aniyah, DO Florez Primary Care Provider Aniyah, DO Florez Attending Provider [phone] BELÉN, DR YUNIEL Ying Admitting Unavailable BELÉN, DR YUNIEL Ying Attending Unavailable BELÉN, DR YUNIEL Ying Consulting Unavailable FIORELLA MA Admitting Unavailable FIORELLA MA Attending Unavailable ANIYAH, DR FLOREZ Primary Care Unavailable [facility], DR FAROOQ Field Consulting Unavailable FIORELLA MA Consulting Unavailable ANIYAH, DR FLOREZ Admitting Unavailable ANIYAH, DR FLOREZ Attending Unavailable ANIYAH, DR FLOREZ Primary Care Unavailable Aniyah, DO Florez Primary Care Provider DO Gautam Dill Attending Provider [phone] Gautam Dill DO Primary Care Provider Gautam Dill DO Primary Care Provider [phone] DO Gautam Dill Primary Care Provider [phone] DO Gautam Dill Attending Provider [phone] Gautam Dill DO Primary Care Provider [phone] Hernandez MD, Penola P Unavailable [phone] Kuns, DO Gautam Primary Care Provider Kuns, DO Gautam Attending Provider [phone] Kuns DO, Gautam P Primary Care Provider Kuns, DO Gautam Referring Provider [phone] Kuns, DO Gautam Primary Care Provider Kuns, DO Gautam Attending Provider Ly, DO Tina L Attending Provider [phone] Aniyah DURHAM, Gautam P Primary Care Provider [phone] Guido DURHAM, Ziad Unavailable IRIS SEQUEIRA Attending Unavailable KARABIN, PIETRO Referring Unavailable KARABIN, PIETRO Referring Unavailable KARABIOrin, PIETRO Attending Unavailable Kuns DO, Gautam Primary Care Provider Kuns DO, Gautam Attending Provider [phone] Kuns DO, Gautam P Primary Care Provider RINKES, KEIKO E Attending Unavailable RINKES, KEIKO E Attending Unavailable VISCI, DELORES A Attending Unavailable VISCI, DELORES A Referring Unavailable VISCI, DELORES A Attending Unavailable RINKES, KEIKO E Attending Unavailable VISCI, DELORES A Referring Unavailable RINKES, KEIKO E Referring Unavailable Rinkes DO, Keiko Attending Provider [phone] Kuns, Gautam Primary Care Unavailable Ly, Tina L Admitting Unavailable Ly, Tina L Attending Unavailable Kuns, Gautam Attending Unavailable Kuns, Gautam Admitting Unavailable Kuns, Gautam Primary Care Unavailable Kuns, Gautam Attending Unavailable Kuns, Gautam Admitting Unavailable Kuns, Gautam Primary Care Unavailable Rinkes, Keiko Admitting Unavailable Rinkes, Keiko Attending Unavailable Kuns, Gautam Admitting Unavailable Kuns, Gautam Primary Care Unavailable Kuns, Gautam Attending Unavailable Kuns, Gautam Admitting Unavailable Kuns, Gautam Primary Care Unavailable Kuns, Gautam Attending Unavailable Kuns, Gautam Referring Unavailable TAIMEH, ZIAD Referring Unavailable KUNS, GAUTAM P Primary Care Unavailable KUNS, GAUTAM P Primary Care Unavailable FARRELL, WING T Attending Unavailable GAUTAM DILL P Primary Care Unavailable WING FARRELL T Referring Unavailable GAUTAM DILL P Primary Care Unavailable WING FARRELL T Attending Unavailable WING FARRELL T Referring Unavailable DEL MATTHEW SPANGLER Referring Naderi gurwinderle ANIYAH, GAUTAM P Primary Care Unavailable ALEXOrinLAINEY M Attending Unavailable GAUTAM DILL P Primary Care Unavailable BUCK, REYNA Referring Unavailable KUNSGAUTAM P Primary Care Unavailable KUNS, GAUTAM P Primary Care Unavailable KIRUPAHARAN, PRADHAB Attending Unavailable KIRUPAHARAN, PRADHAB Referring Unavailable TAIMEH, ZIAD Referring Unavailable ELDAS, GAUTAM P Primary Care Unavailable BUCK, REYNA Referring Unavailable KUNS, GAUTAM P Primary Care Unavailable TAIMEH, ZIAD Attending Unavailable KUNS, GAUTAM P Primary Care Unavailable TAIMEH, ZIAD Attending Unavailable ELDAS, GAUTAM P Primary Care Unavailable TAIMEH, ZIAD Referring Unavailable GAUTAM DILL P Primary Care Unavailable Allergies Allergy Classification Reported Allergen(s) Allergy Type Date of Onset Reaction(s) Facility Adhesive Tape (1 source) Adhesive Tape Substance Allergy Other: See Comments [facility] Cephalosporins (antibiotic) (1 source) Cephalosporins (Antibiotic) Drug Allergy 004 Unknown [facility] Contrast Media (1 source) Contrast media Substance Allergy Other: See Comments [facility] Macrolides (antibiotic) (1 source) Azithromycin Drug Allergy 015 GI Upset [facility] Nitroimidazoles (antibiotic) (1 source) metroNIDAZOLE Drug Allergy 015 Diarrhea [facility] Work Phone: [facility]io[facility] [employer] (1 source) Morphine Drug Allergy 014 Other: See Comments [facility] Penicillins (antibiotic) (1 source) Penicillins Drug Allergy 015 GI Upset [facility] (16 sources) Amoxicillin / Clavulanate Drug Allergy diarrhea [employer] Other (20 sources) Budesonide / formoterol Drug Allergy 024 Other: See Comments [facility] (20 sources) celecoxib Drug Allergy Unknown [employer] Other (20 sources) Cephalexin Drug Allergy Unknown [facility] [employer] Other (20 sources) cloNIDine; Translations: [CLONIDINE] Drug Allergy 023 Other: See Comments [facility] (20 sources) Contrast media Propensity to adverse reactions Unknown [facility] [employer] Other (20 sources) levoFLOXacin Drug Allergy severe diarrhea [facility] [employer] Other (20 sources) LORazepam; Translations: [LORAZEPAM] Drug Allergy 023 Other: See Comments [facility] (20 sources) methylPREDNISolone Drug Allergy Unknown [facility] Other (20 sources) metroNIDAZOLE; Translations: [METRONIDAZOLE] Drug Allergy 015 Diarrhea [facility] (20 sources) Morphine; Translations: [MORPHINE] Drug Allergy 014 Other: See Comments [facility] (20 sources) NITROFURANTOIN, MACROCRYSTALS / Nitrofurantoin, Monohydrate Drug Allergy bradycardia [facility] [employer] Other (20 sources) oxybutynin Drug Allergy Unknown [facility] [employer] Other (20 sources) rofecoxib Drug Allergy Unknown [facility] [employer] Other (20 sources) Sulfamethoxazole / Trimethoprim Drug Allergy 023 Itching [facility] [employer] Other (20 sources) Valproate Drug Allergy Unknown [facility] Other (20 sources) surgical tape/electrode pads Propensity to adverse reactions Unknown [facility] [employer] Other (20 sources) Sulfonamides (Antibiotic); Translations: [SULFA (SULFONAMIDE ANTIBIOTICS)] Allergy to substance 017 Itching, Other: See Comments [facility] (20 sources) Iodinated Contrast Media; Translations: [IODINATED CONTRAST MEDIA] Allergy to substance 014 Unknown Reaction [facility] (6 sources) Amoxicillin / Clavulanate Drug Allergy diarrhea [facility] [employer] Other (10 sources) Cephalexin Drug Allergy unknown [facility] (1 source) Penicillin Drug Allergy [facility] (20 sources) Adhesive Tape; Translations: [ADHESIVE TAPE (ROSINS)] Allergy to substance Other: See Comments [facility] (20 sources) Azithromycin; Translations: [AZITHROMYCIN] Drug Allergy GI Upset [facility] (20 sources) Cephalosporins (Antibiotic); Translations: [CEPHALOSPORINS] Drug Allergy Unknown [facility] (20 sources) Contrast media; Translations: [CONTRAST DYE] Drug Allergy Other: See Comments, Unknown [facility] (20 sources) metroNIDAZOLE; Translations: [METRONIDAZOLE HCL] Drug Allergy Diarrhea [facility] Work Phone: (20 sources) Penicillins; Translations: [PENICILLINS] Drug Intolerance GI Upset [facility] (10 sources) Adhesive Tape; Translations: [adhesive tape] Allergy to substance unknown [facility] (10 sources) Amoxicillin; Translations: [amoxicillin] Drug Allergy diarrhea [facility] (11 sources) Budesonide; Translations: [BUDESONIDE] Drug Allergy blood pressure [facility] (20 sources) celecoxib; Translations: [CELECOXIB] Drug Allergy Other: See Comments [facility] (20 sources) Clavulanate; Translations: [CLAVULANIC ACID] Drug Allergy Diarrhea [facility] (20 sources) formoterol; Translations: [FORMOTEROL] Drug Allergy Other: See Comments [facility] (20 sources) levoFLOXacin; Translations: [LEVOFLOXACIN] Drug Allergy Diarrhea, Other: See Comments [facility] (20 sources) methylPREDNISolone; Translations: [methylprednisolone] Drug Allergy GI Upset, Other: See Comments [facility] (20 sources) Nitrofurantoin; Translations: [NITROFURANTOIN] Drug Allergy Other: See Comments [facility] (20 sources) oxybutynin; Translations: [OXYBUTYNIN] Drug Allergy Other: See Comments [facility] (20 sources) rofecoxib; Translations: [rofecoxib] Drug Allergy unknown [facility] (20 sources) Sulfamethoxazole; Translations: [sulfamethoxazole] Drug Allergy itching [facility] (20 sources) Trimethoprim; Translations: [TRIMETHOPRIM] Drug Allergy Itching [facility] (10 sources) Valproate; Translations: [divalproex sodium] Drug Allergy unknown [facility] (12 sources) Cephalexin Drug Allergy [facility] (12 sources) Cephalosporins (Antibiotic) Drug Allergy [facility] (12 sources) Lorazepam Allergy to substance [facility] (12 sources) Penicillins Drug Intolerance [facility] (12 sources) Valproate Drug Allergy [facility] (13 sources) Amoxicillin-Pot Clavulanate; Translations: [AMOXICILLIN-POT CLAVULANATE] Drug Allergy Diarrhea [facility] (12 sources) Budesonide-Formotero l Fumarate Drug Allergy [facility] (12 sources) Wound Dressing Adhesive Drug Allergy [facility] (20 sources) Latex; Translations: [LATEX] Drug Allergy Other: See Comments [facility] (2 sources) Budesonide / formoterol; Translations: [BUDESONIDE-FORMOTER OL] Drug Allergy [facility] (1 source) Sulfamethoxazole / Trimethoprim; Translations: [SULFAMETHOXAZOLE-TR IMETHOPRIM] Drug Allergy [facility] (4 sources) DIVALPROEX; Translations: [DIVALPROEX] Propensity to adverse reactions to drug (disorder) Unknown [facility] (12 sources) Penicillins Drug Intolerance GI Upset [facility] (2 sources) Allantoin; Translations: [allantoin] Drug Allergy lip swelling [facility] (2 sources) Camphor; Translations: [camphor] Drug Allergy lip [facility] (2 sources) dimethicone; Translations: [dimethicone] Drug Allergy [facility] (2 sources) Menthol; Translations: [menthol] Drug Allergy [facility] (2 sources) oxybenzone; Translations: [oxybenzone] Drug Allergy [facility] (2 sources) phenol; Translations: [phenol] Drug Allergy [facility] (2 sources) aloe vera; Translations: [aloe vera] Allergy to substance [facility] (2 sources) chamomile flower; Translations: [chamomile flower] Allergy to substance [facility] (2 sources) herbal complex no.57; Translations: [herbal complex no.57] Allergy to substance [facility] (2 sources) homosalate; Translations: [homosalate] Allergy to substance [facility] (2 sources) meradimate; Translations: [meradimate] Allergy to substance [facility] (2 sources) octinoxate; Translations: [octinoxate] Allergy to substance [facility] (2 sources) octyl salicylate; Translations: [octyl salicylate] Allergy to substance [facility] (2 sources) padimate O; Translations: [padimate O] Allergy to substance [facility] (2 sources) petrolatum,hydrophil ic; Translations: [petrolatum,hydrophi lic] Allergy to substance [facility] (1 source) Cephalexin Drug Allergy [facility] (1 source) cloNIDine Drug Allergy [facility] (1 source) LORazepam Drug Allergy [facility] (1 source) metroNIDAZOLE Drug Allergy [facility] (1 source) Morphine Drug Allergy [facility] Medications Current Medications Medication Drug Class(es) Dates Sig (Normalized) Sig (Original) Acetaminophen (20 sources) acetaminophen (TYLENOL 8 HOUR ORAL) Take by mouth as needed. Active ALPRAZolam 0.25 mg oral tablet (12 sources) Benzodiazepine Start: 01-15-2019 take 1 tablet by mouth twice daily as needed Xanax 0.25 MG 1 tablet Orally Twice a day prn for 12 days Jan, Active betamethasone 1 mg/ml topical cream (4 sources) Corticosteroid Start: 08-10-2024 Betamethasone Valerate 0.1 % cream Active 1 APPLIC TOPICAL Twice daily as needed for skin irritation August 10, 2024 12:00am Start: 07-02-2024 Betamethasone Dipropionate 0.05 % cream Active 1 APPLIC TOPICAL Twice daily as needed for rash July 02, 2024 1:00am calcium carbonate 1500 mg / cholecalciferol 800 unt oral tablet (11 sources) Vitamin D End: 09-11-2024 Calcium Carb-Cholecalciferol (Calcium 600/Vitamin D3) 600-20 MG-MCG tablet Take by mouth 09/11/2024 Discontinued cholecalciferol 0.05 mg oral capsule (20 sources) Vitamin D Start: 09-27-2023 take 2 capsules by mouth once daily [...] for 3 months Jan, Active doxycycline hyclate 100 mg oral capsule (17 sources) Tetracycline-class Drug Start: 08-06-2024 take 1 capsule by mouth twice daily Doxycycline Hyclate 100 mg capsule Active 100 MG PO Twice daily 25 02August 06, 2024 12:00am Start: 08-25-2021 take 1 capsule by mo [facility] every twelve hours Doxycycline Hyclate 50 MG [...] February 08, 2024 12:00am Start: 04-15-2017 End: 07-04-2024 take 1 capsule by mouth once daily [...] on above: Take 1 tablet by shabana as needed. gabapentin 100 mg oral capsule (20 sources) Anti-epileptic Agent Start: 03-13-2018 take 1 capsule by mouth every twelve hours Gabapentin 100 mg 1 tablet Orally BID for 90 days Mar, Active Start: 12-24-2015 End: 04-24-2024 take 1 capsule by mouth once daily gabapentin (NEURONTIN) 100 mg capsule Take 1 capsule by mouth once daily. 12/24/2015 Active Comment on above: Take 1 capsule by mo [facility] once daily. ibuprofen 800 mg oral tablet (20 sources) Nonsteroidal Anti-inflammatory Drug Start: 06-05-2024 take 1 tablet by mouth every eight hours as needed for pain Ibuprofen 800 mg tablet Active 800 MG PO Every 8 hours as needed for pain June 05, 2024 1:00am Start: 09-27-2023 End: 02-08-2024 take 1 tablet by mouth three times daily at mealtime as needed Ibuprofen 800 mg tablet Discontinued 800 MG PO Three times daily September 27, 2023 12:00am February 08, 2024 11:26am [employer] tablet with food or milk as needed Orally Three times a day; Note: Source Status: Provider: Aniyah Dennis Start: 04-25-2018 End: 10-05-2024 take 1 tablet by mouth every six hours as needed ibuprofen (MOTRIN) 600 mg tablet Take 1 tablet by mouth every 6 hours as needed for Pain. Take with food. 50 tablet 04/25/2018 10/05/2024 Discontinued take 1 tablet by shabana th three times daily at mealtime as needed Ibuprofen 800 MG 1 tablet with food or milk as needed Orally Three times a day for 90 day(s) prn Active Comment on above: Take 1 tablet by shabana th every 6 hours as needed for Pain. Take with food. Iron (2 sources) take 1 tablet by mouth once rafat y Iron 325 (65 Fe) MG 1 tablet Orally Once a day Active Magnesium (4 sources) magnesium 200 MG tablet Take by mouth Active Magnesium glycinate (20 sources) take 240 mg by mouth once daily MAGNESIUM GLYCINATE ORAL Take 240 mg by mouth once daily. High absorption Active Multiple Vitamins-Minerals (multivitamin with minerals) tablet (3 sources) End: 09-11-2024 take 1 tablet by mouth once daily Multiple Vitamins-Minerals (multivitamin with minerals) tablet Take 1 tablet by mouth Daily 09/11/2024 Discontinued take 1 tablet by mouth once rafat y Multiple Vitamins-Minerals (multivitamin with minerals) tablet Take 1 tablet by mouth Daily Active mv-min/iron/folic/calcium/vi tK (WOMEN'S MULTIVITAMIN ORAL) (20 sources) take 1 tablet by mouth once daily mv-min/iron/folic/calcium/vitK (WOMEN'S MULTIVITAMIN ORAL) Take 1 tablet by mouth once daily. Active nebivolol 5 mg oral tablet (20 sources) Star t: 04-09 take 2.5 mg by mouth once daily Nebivolol 5 mg tablet Active 2.5 MG PO Daily April 27, 2024 12:37pm Start: 04-15-2017 End: 04-27-2024 take 1 tablet by mouth once daily Nebivolol 5 MG tablet Discontinued 5 MG PO Daily April 15, 2017 1:00am April 27, 2024 12:37pm Comment on above: Take 5 mg by mouth o nce daily. predniSONE 10 mg oral tablet (12 sources) Start: 04-22-20 take 1 tablet by mouth every twenty-four hours predniSONE 10 MG 1 tablet Orally Once a day for 5 day(s) Apr, Active valACYclovir 1000 mg oral tablet (1 source) Herpesvirus Nucleoside Analog DNA Polymerase Inhibitor, Herpes Simplex Virus Nucleoside Analog DNA Polymerase Inhibitor, Herpes Zoster Virus Nucleoside Analog DNA Polymerase Inhibitor Start: 08-11-19 Valacyclovir (Valtrex) 1 gram tablet Active 1000 MG PO Twice daily August 10, 2024 12:00am Vitamin D 50 MCG (1999 UT) (11 sources) take 2 capsules by mouth once daily Vitamin D 50 MCG (1999 UT) 2 capsule Orally Once a day Active Completed/Discontinued Medications Medication Drug Class(es) Dates Sig (Normalized) Sig (Original) azithromycin 250 mg oral tablet (20 sources) Macrolide Antimicrobial Start: 04-04-2024 End: 04-27-2024 Azithromycin (Zithromax) 250 mg tablet Discontinued 0 PO .COMPLEX April 04, 2024 1:00am April 27, 2024 12:37pm For 250 mg dose pack: take 500 mg today (day 1), then 250 mg for 4 days (days 2-5) PO Start: 02-14-2024 End: 08-16-2024 take 1 tablet by mouth once Azithromycin 500 mg tablet Active 500 MG PO Once April 10, 2024 1:17pm Take one hour before dental procedure Start: 02-14-2024 End: 04-27-2024 take 1 tablet by mouth every hour as needed Azithromycin (Zithromax) 500 mg tablet Discontinued 500 MG PO Daily as needed for dental procedure March 15, 2024 1:00am April 27, 2024 11:59am take 1 tablet one hour prior to dental procedure Start: 10-19-2023 End: 02-08-2024 take 1 tablet by mouth every hour Azithromycin (Zithromax) 500 mg tablet Discontinued 500 MG PO .COMPLEX October 19, 2023 12:00am February 08, 2024 [...] Orally one hour before procedure Feb, Active chlordiazePOXIDE hydrochloride 5 mg / clidinium bromide 2.5 mg oral capsule (8 sources) Anticholinergic, Benzodiazepine Start: 10-19-2023 End: 02-08-2024 Chlordiazepoxide-Clidinium (Librax (With Clidinium)) 5-2.5 mg capsule Discontinued 1 CAP PO Twice daily as needed for abdominal pain 30 15 October 19, 2023 12:00am February 08, 2024 11:25am famotidine 20 mg oral tablet (8 sources) Histamine-2 Receptor Antagonist Start: 10-19-2023 End: [...] Take 1 tablet by shabana once daily. loperamide hydrochloride 2 mg oral capsule (20 sources) Opioid Agonist Start: 4 End: 4 take 1 capsule by mouth every six hours as needed Loperamide 2 mg capsule Discontinued 2 MG PO Every 6 hours as needed October 19, 2023 12:00am February 08, 2024 11:25am End: 07-04-2024 loperamide (Imodium A-D) 2 M G tablet Take 2-4 mg by mouth 4 (four) times a day as needed for diarrhea Active mupirocin 0.02 mg/mg topical ointment (8 sources) RNA Synthetase Inhibitor Antibacterial Start: 10-19-2023 End: 02-08-2024 Mupirocin 2 % ointment Discontinued 1 APPLIC TOPICAL Twice daily October 19, 2023 12:00am February 08, 2024 11:25am simethicone 80 mg chewable tablet (1 source) End: 07-04-2024 take 1 tablet by mouth every six hours as needed simethicone, chewable (MYLICON) 80 mg chewable tablet Take 80 mg by mouth every 6 hours as needed. 07/04/2024 Discontinued Problems Active Problems Problem Classification Problem Date Documented Da te Episodic/Chronic Anxiety disorders (20 sources) Mixed anxiety and depressive disorder; Translations: [Other specified anxiety disorders] Chronic Cardiac dysrhythmias (20 sources) Postural orthostatic tachycardia syndrome ; Translations: [POTS (postural orthostatic tachycardia syndrome)] Onset: 8 04-17-2018 Chronic Cardiac dysrhythmias (20 sources) Palpitations; Translations: [Bradycardia] Onset: 1 Resolved: 1 Episodic Deficiency and other anemia (20 sources) Microcytic anemia; Translations: [Iron deficiency anemia, unspecified] Episodic Deficiency and other anemia (2 sources) Iron deficiency anemia, unspecified Episodic Diabetes mellitus without complication (20 sources) Hyperglycemia; Translations: [Hyperglycemia, unspecified] Episodic Diseases of white blood cells [...] hypertension (1 source) Essential hypertension Onset: 8 Fluid and electrolyte disorders (1 source) Hyperkalemia; Translations: [Hyperkalemia] Onset: 5 Episodic Genitourinary symptoms and ill-defined conditions (20 sources) Female stress incontinence; Translations: [Stress incontinence (female) (male)] Onset: 5 11-25-2014 Chronic Malaise and fatigue (1 source) Other fatigue Episodic Nonspecific chest pain (8 sources) Chest pain, unspecified; Translations: [Other chest pain] Onset: 8 Episodic Nutritional deficiencies (20 sources) Vitamin D deficiency; Translations: [Vitamin D deficiency, unspecified] Chronic Open wounds of extremities (10 sources) Laceration of left index finger; Translations: [Laceration without foreign body of left index finger without damage to nail, initial encounter] Episodic Other circulatory disease (4 sources) Postural orthostatic tachycardia syndrome ; Translations: [Postural orthostatic tachycardia syndrome (POTS)] Onset: 4 Episodic Other circulatory disease (5 sources) Elevated blood pressure; Translations: [Elevated blood-pressure reading, without diagnosis of hypertension] 08-12-2024 Episodic Other ear and sense organ disorders (20 sources) Bilateral earache; Translations: [Otalgia, bilateral] Episodic Other gastrointestinal disorders (5 sources) Irritable bowel syndrome characterized by constipation; Translations: [Irritable bowel syndrome with constipation] 02-08-2024 Chronic Other gastrointestinal disorders (2 sources) Irritable bowel syndrome with constipation; Translations: [Irritable bowel syndrome] 02-08-2024 Chronic Other gastrointestinal disorders (14 sources) Difficulty swallowing; Translations: [Dysphagia, unspecified] Episodic Other gastrointestinal disorders (8 sources) Diarrhea; Translations: [Diarrhea, unspecified] 10-19-2023 Episodic Other gastrointestinal disorders (6 sources) Abdominal bloating; Translations: [Abdominal distension (gaseous)] 11-15-2023 Episodic Other gastrointestinal disorders (5 sources) Dysphagia; Translations: [Dysphagia, unspecified] 02-08-2024 Episodic Other lower respiratory disease (2 sources) Shortness of breath; Translations: [Shortness of breath] Onset: 4 Episodic Other lower respiratory disease (2 sources) Snoring; Translations: [Snoring] Onset: 4 Episodic Other lower respiratory disease (5 sources) Dyspnea; Translations: [Shortness of breath] 08-12-2024 Episodic Other lower respiratory disease (5 sources) Multiple nodules of lung; Translations: [Other nonspecific abnormal finding of lung field] 08-16-2024 Episodic Other lower respiratory disease (1 source) Nodule of lung; Translations: [Solitary pulmonary nodule] 08-16-2024 Episodic Other lower respiratory disease (1 source) Dyspnea on exertion; Translations: [Shortness of breath] 08-16-2024 Episodic Other lower respiratory disease (2 sources) Solitary pulmonary nodule; Translations: [Lung nodule] Onset: 5 Episodic Other lower respiratory disease (1 source) Other nonspecific abnormal finding of lung field; Translations: [Lung nodules] Onset: 5 Episodic Other nervous system disorders (20 sources) Disorder of autonomic nervous system; Translations: [Disorder of the autonomic nervous system, unspecified] Onset: 8 04-17-2018 Chronic Other nervous system disorders (1 source) Disorder of the autonomic nervous system, unspecified Chronic Other nervous system disorders (20 sources) Tremor; Translations: [Tremor, unspecified] 10-08-2024 Episodic Other nervous system disorders (10 sources) Numbness of face; Translations: [Anesthesia of skin] Episodic Other nervous system disorders (1 source) Tremor, unspecified; Translations: [Tremor] Onset: 5 Episodic Other nutritional; endocrine; and metabolic disorders (20 sources) H/O: thyroid disorder; Translations: [Personal history of other endocrine, nutritional and metabolic disease] 09-27-2023 Episodic Other nutritional; endocrine; and metabolic disorders (1 source) Abnormal weight gain Episodic Other screening for suspected conditions (not mental disorders or infectious disease) (10 sources) Endometrium thickened; Translations: [Abnormal findings on diagnostic imaging of other specified body structures] 08-08-2023 Chronic Other skin disorders (8 sources) Pyogenic granuloma; Translations: [Pyogenic granuloma] 10-19-2023 Episodic Other skin disorders (3 sources) Pyogenic granuloma; Translations: [Pyogenic granuloma of skin and subcutaneous tissue] 10-19-2023 Episodic Other upper respiratory infections (3 sources) Sinusitis; Translations: [Chronic sinusitis, unspecified] 04-04-2024 Chronic Peripheral and visceral atherosclerosis (20 sources) Peripheral vascular disease; Translations: [Peripheral vascular disease, unspecified] Chronic Pulmonary heart disease (20 sources) Pulmonary hypertension; Translations: [Pulmonary hypertension, unspecified] Onset: 4 05-11-2024 Chronic Residual codes; unclassified (2 sources) Sleep apnea, unspecified; Translations: [Sleep apnea, unspecified] Onset: 4 Chronic Residual codes; unclassified (20 sources) Amnesia; Translations: [Other amnesia] Episodic Thyroid disorders (20 sources) Multinodular goiter; Translations: [Nontoxic multinodular goiter] [...] of uterus, unspecified] Onset: 08-01-2017 08-01-2017 Episodic Genitourinary symptoms and ill-defined conditions (20 sources) Increased frequency of urination; Translations: [Frequency of micturition] Onset: 04-04-2024 Episodic Nonmalignant breast conditions (2 sources) Pain of breast; Translations: [Mastodynia] 01-03-2024 Episodic Other connective tissue disease (4 sources) Pain in left lower leg; Translations: [PAIN IN LEFT LOWER LEG] Onset: 11-13-2021 Episodic Other ear and sense organ disorders (1 source) Otalgia, bilateral Onset: 04-22-2021 Resolved: 04-22-2021 Episodic Other ear and sense organ disorders (20 sources) Otalgia, left ear; Translations: [Otalgia, unspecified] Onset: 02-07-2018 02-07-2018 Episodic Other female genital disorders (20 sources) Polyp of corpus uteri; Translations: [Polyp of corpus uteri] Onset: 06-13-2017 02-07-2018 Episodic Other female genital disorders (2 sources) Vaginal dryness; Translations: [Other specified noninflammatory disorders of vagina] 01-12-2024 Episodic Other gastrointestinal disorders (4 sources) Diarrhea, unspecified; Translations: [Diarrhea] Onset: 10-19-2023 10-19-2023 Episodic Other gastrointestinal disorders (3 sources) Dysphagia, unspecified; Translations: [Dysphagia, unspecified] Onset: 02-13-2024 02-08-2024 Episodic Other gastrointestinal disorders (1 source) Abdominal distension (gaseous); Translations: [Abdominal distension (gaseous)] Onset: 11-24-2023 Episodic Other non-traumatic joint disorders (1 source) Pain in right knee Onset: 04-22-2021 Resolved: 04-22-2021 Episodic Other nutritional; endocrine; and metabolic disorders (2 sources) Personal history of other endocrine, nutritional and metabolic disease; Translations: [Personal history of other endocrine, nutritional and metabolic disease] Onset: 10-19-2023 Episodic Other screening for suspected conditions (not mental disorders or infectious disease) (20 sources) Atypical glandular cells on cervical Papanicolaou [...] Test Name Value Interpretation Reference Range Facility [facility] 10-08-2024 CNOV Office Visit (PMNA11 ) IRIS THOMASON ([id number]) 1965 F Date Time Provider Department 10/08/24 2:30 PM AMANDA MORENO [id number] During your visit today, we recorded the following information about you: Temperature Pulse Respiration Blood pressure 98 degrees 70/minute 18/minute 138/72 Weight 89 kg Amanda Moreno DO 10/08/2024 3:25 PM Signed [facility] Initial Visit October 08, 2024 I had the pleasure of seeing Iris Thomason in consultation at the request of Amanda Moreno for Pulmonary Hypertension. Summary of this visit and my recommendations will be relayed to the referring physician by way of electronic communication or by mail. PCP: Gautam Dill DO Referring Provider: Amanda Moreno Subjective: I had the pleasure of seeing Iris Thomason in consultation for continued evaluation and and management of Pulmonary Hypertension. Summary of this visit and my recommendations will be relayed to the referring physician and primary care physician by way of electronic communication or by mail. Following HPI dictated by [employer] software. HPI: Iris is a 59-year-old female with a history of POTS, presenting for evaluation of pulmonary hypertension and dyspnea. Iris reports a history of dyspnea and fatigue over the past year, with episodes of needle pain in the ear beginning in January while at a store. She was evaluated at [facility] in February, where an EKG was performed. Initial results were reported as normal, but she was later informed of abnormalities. She expresses dissatisfaction with the care received at [facility], citing poor communication and delays in test results. She underwent an echocardiogram, which initially suggested elevated pressures but was reportedly normal on repeat testing. She was referred for evaluation of pulmonary hypertension by her maintenance mechanic elevators, Dr. Fink, who discussed the possibility of a heart catheterization to measure pressures. Currently, she experiences mild dyspnea with activities such as walking, seeing eye dog teacher, and climbing stairs. She can walk a city block but notes mild dyspnea afterward. She denies orthopnea, lower extremity edema, or abdominal swelling. She reports occasional lightheadedness and near-syncope, particularly when rising quickly, but denies complete syncope. These symptoms have been present for years and were part of her initial evaluation for POTS approximately 20 years ago. She was previously evaluated at the [facility], where it was suggested that her body [...] nearly 2 years. She underwent spirometry at [facility] in June, with normal results. She also had a CT scan in September, which showed healthy lung tissue and normal heart size. Eyes: (-) dry eyes Ears/Nose/Mouth/Throa t: (-) dry mouth, (-) excess salivation Cardiovascular: [...] mg by mouth once daily. High absorption mv-min/iron/folic/lux cium/vitK (WOMEN'S MULTIVITAMIN ORAL) Take 1 tablet by mouth once daily. acetaminophen (TYLENOL 8 HOUR ORAL) Take by mouth as needed. gabapentin (NEURONTIN) 100 mg capsule Take 1 capsule by mouth once daily. nebivolol (BYSTOLIC) 5 mg tablet Take 2.5 mg by mouth once daily. ALLERGIES: ALLERGIES Allergen Reactions Contrast Dye Other: See Comments, Unknown Azithromycin GI Upset Severe diarrhea Budesonide-Formote (more content not included)... Normal [facility] SIX MINUTE WALKon 10-08-2024 Yair Hill MD 10/08/2024 2:53 PM RESPIRATORY THERAPY SIX [...] Trend (Previous Encounters) None SIGNATURE: Aries Flores, ATHLETIC DIRECTOR PATIENT NAME: Iris Thomason DATE: October 08, [...] made appropriate revisions as needed. SIGNATURE: Yair Hill MD PATIENT NAME: Iris Thomason DATE: October 08, 2024 TIME: 2:53 PM [facility] SIX MINUTE WALKOrdered By: Sriram Hill on 10-08-2024 [facility] Work Phone: CNOVon 10-05-2024 CNOV Office Visit ([facility] ) IRIS THOMASON ([id number]) 1965 F Date Time Provider Department 10/05/24 12:30 PM WING FARRELL [facility] During your visit today, we recorded the following information about you: Pulse Blood pressure Weight 62/minute 152/85 88 kg Wing Farrell, COLLABORATIVE TEACHER.DYE HOUSE VAT WORKER 10/05/2024 4:43 PM Signed [facility] INCIDENTAL LUNG NODULE PROGRAM (Follow Up) Impression [...] further evaluation discussed in detail with patient. Iris Thomason expressed understanding and is in agreement with plan. Follow Up Diagnosis: Lung Nodule Recommendation: CT Scan Enrolled in Lung Nodule program: Completed Lung Nodule Program Location: [facility] History of Present Illness Iris Thomason is a 59 year old female No history of tobacco abuse with a pertinent past medical history significant for hypothyroidism, POTS, chronic fatigue syndrome, hyperkinetic heart syndrome, pulm HTN, benign thyroid nodules, autonomic dysfunction, palpitations who is being seen as a follow up for evaluation of a lung nodule(s). Patient [...] duty. - 2/2 fatigue Modified Medical Research [place] Dyspnea Scale (MMRC) I get short of [...] W/BX ENDO/POLYP 03/22/2014 Dr. Blanton: hysteroscopy, polypectomy LA (more content not included)... Normal [facility] CT CHEST WO IVCONon 10-06-19 CT CHEST WO IVCON * * *Final Report* * * DATE OF EXAM: Oct 05 2024 11:48AM [facility] 0541 - CT CHEST WO IVCON [...] lesions. Upper abdomen: Punctate right renal calculus. Full Stack Developer (topogram) images: Unremarkable. IMPRESSION: Linear band of atelectasis or scarring [...] obtained in 12 months --END OF FINDING-- Box Sealing Inspector: [place] Transcribe Date/Time: Oct 05 2024 2:52P Dictated by : NITESH PAYNE MD This examination was interpreted and the report reviewed and electronically signed by: NITESH PAYNE MD on Oct 05 2024 2:59PM EST [id number] ACTIONABLE Invalid Interpretation Code [facility] CT Chest WO contrastOrdered By: Ccf Provider on 10-05-2024 Interpretation and review of laboratory results Abnormal [facility] Radiology Result ACTIONABLE Abnormal [facility] Comment on above: This report contains an incidental or actionable [...] contact your provider for the next steps. [facility] CT Chest WO contraston 10-05 IMPRESSION: Linear band of atelectasis or scarring [...] obtained in 12 months --END OF FINDING-- Box Sealing Inspector: [place] Transcribe Date/Time: Oct 05 2024 2:52P Dictated by : NITESH PAYNE MD This examination was interpreted and the report reviewed and electronically signed by: NITESH PAYNE MD on Oct 05 2024 2:59PM [facility] DIVISION OF RADIOLOGY * * *Final Report* * * DATE OF EXAM: Oct 05 2024 11:48AM [facility] 0541 - CT CHEST WO IVCON [...] lesions. Upper abdomen: Punctate right renal calculus. Full Stack Developer (topogram) images: Unremarkable. DIVISION OF RADIOLOGY Provider, [facility] - 10/05/2024 * * *Final Report* * * DATE OF EXAM: Oct 05 2024 11:48AM [facility] 0541 - CT CHEST WO IVCON [...] lesions. Upper abdomen: Punctate right renal calculus. Full Stack Developer (topogram) images: Unremarkable. IMPRESSION IMPRESSION: Linear band [...] obtained in 12 months --END OF FINDING-- Box Sealing Inspector: [place] Transcribe Date/Time: Oct 05 2024 2:52P Dictated by : NITESH PAYNE MD This examination was interpreted and the report reviewed and electronically signed by: NITESH PAYNE MD on Oct 05 2024 2:59PM [facility] Radiology Study observation (narrative) Indu [facility] Nam 10-04-2024 JOSEN Telephone (PULMMN) IRIS THOMASON ([id number]) 1965 F Date Time Provider Department 10/04/24 AMANDA MORENO During your visit today, we recorded the following information about you: Kelsi Griffin 10/04/2024 1:35 PM Signed The patient contacted us, indicating that one of our nurses had advised her against undergoing the VQ Lung Scan, as she has already completed two of these tests. The patient stated that these tests were performed at [facility] at the beginning of the year. The patient can be reached at [phone]. She is seeking clarification regarding her appointment and is inquiring whether it is necessary to repeat the test. Allergies As of Date: 10/04/2024 Noted Allergy Reaction CONTRAST DYE 01/21/2014 14 - Other: See Comments Comments: chest pain , increased HR, increased BP AZITHROMYCIN 10/07/2014 8 - GI Upset Comments: Severe diarrhea BUDESONIDE-FORMOTEROL 03/05/2024 14 - Other: See Comments CELECOXIB 07/12/2022 14 - Other: See Comments Comments: Other Reaction(s): Unknown CEPHALOSPORINS 12/25/2003 16 - Unknown CLAVULANIC ACID 07/12/2022 6 - Diarrhea Comments: Other Reaction(s): diarrhea CLONIDINE 07/12/2022 14 - Other: See Comments Comments: Other Reaction(s): Spasm Other Reaction(s): eye brown pain, spasms Other Reaction(s): Spasm Other Reaction(s): eye brown pain, spasms FLAGYL (METRONIDAZOLE HCL) 10/21/2014 6 - Diarrhea Comments: Had diarrhea and dizziness and funny feeling in head and arms LATEX 07/04/2024 14 - Other: See Comments LEVOFLOXACIN 07/12/2022 6 - Diarrhea 14 - Other: See Comments Comments: Other Reaction(s): Unknown METHYLPREDNISOLONE 07/12/2022 8 - GI Upset 14 - Other: See Comments Comments: Other Reaction(s): Unknown MORPHINE 03/11/2014 14 - Other: See Comments Comments: CHEST PAIN AND INCREASED BLOOD PRESSURE NITROFURANTOIN 07/12/2022 14 - Other: See Comments OXYBUTYNIN 04/26/2014 14 - Other: See Comments Comments: Other Reaction(s): other, Unknown PENICILLINS 10/07/2014 8 - GI Upset Comments: Severe diarrhea SULFA (SULFONAMIDE ANTIBIOTICS) 04/15/2017 9 - Itching 14 - Other: See Comments Comments: Other Reaction(s): itching TAPE (ADHESIVE TAPE (ROSINS)) 01/21/2014 14 - Other: See Comments Comments: blisters TRIMETHOPRIM 07/12/2022 9 - Itching Comments: Other Reaction(s): itching Date Reviewed: 08/16/2024 Reviewed by: Wing Farrell APRN.DYE HOUSE VAT WORKER - Fully Assessed Reason for Visit: Patient Question [9637] Prescriptions as of 10/04/2024 - Cholecalciferol, Vitamin D3, 50 mcg (2,000 unit) cap Take 2 capsules by mouth once daily. - MAGNESIUM GLYCINATE ORAL Take 240 mg by mouth once daily. High absorption - mv-min/iron/folic/lux cium/vitK (WOMEN'S MULTIVITAMIN ORAL) Take 1 tablet by mouth once daily. - acetaminophen (TYLENOL 8 HOUR ORAL) Take by mouth as needed. - ibuprofen (MOTRIN) 600 mg tablet Take 1 tablet by mouth every 6 hours as needed for Pain. Take with food. - gabapentin (NEURONTIN) 100 mg capsule Take 1 capsule by mouth once daily. - nebivolol (BYSTOLIC) 5 mg tablet Take 2.5 mg by mouth once daily. Problem List As Of Date 10/04/2024 Noted Resolved Female stress incontinence [N39.3] 11/25/2014 Multiple thyroid nodules [E04.2] 12/24/2015 Endometrial polyp [N84.0] 06/13/2017 Intramural and submucous leiomyoma of uterus [D*08/01/2017 Submucous leiomyoma of uterus [D25.0] 08/01/2017 Left ear pain [H92.02] 02/07/2018 Autonomic dysfunction [G90.9] 04/17/2018 POTS (postural orthostatic tachycardia syndrome*04/17/2018 Atypical glandular cells of undetermined signif*05/30/2018 Encounter Status:Closed by KELSI GRIFFIN on 10/04/24 Normal [facility] Urine Cultureon 09-14-2024 Bacteria identified Cx Nom (U) ORGANISM: Escherichia coli (O:ESCCOL) [place] Count >100,000 Aerobic JEOVANNY Charge (NMIC56) ---- SUSCEPTIBILITY --- ORGANISM: O:ESCCOL ANTIBIOTIC INTERPRETATION JEOVANNY Amikacin S <16 Amoxacillin/K Clavulanate S <8 Ampicillin S <8 Ampicillin/Sulbactam S <4 Aztreonam S <4 Cefazolin S <2 Cefepime S <2 Ceftazidime S <1 Ceftazidime/Avibactam S <4 Ceftolozane/Tazobacta m S <2 Ceftriaxone S <1 Cefuroxime S <4 Ciprofloxacin S <0.25 Ertapenem S <0.5 Gentamicin S <2 Levofloxacin S <0.5 Meropenem S <1 Meropenem/Vaborbactam S <2 Nitrofurantoin S <32 Piperacillin/Tazobact am S <8 Tetracycline S <4 Tigecycline S <2 Tobramycin S <2 Trimethoprim/Sulfamet hoxazole S <0.5 S = SUSCEPTIBLE I = INTERMEDIATE R = RESISTANT BLANK = DATA NOT AVAILABLE, OR DRUG NOT ADVISABLE OR TESTED R* = RESISTANCE DUE TO EXTENDED SPECTRUM BETA-LACTAMASES ESBL = EXTENDED SPECTRUM BETA-LACTAMASE TFG = THYMIDINE-DEPENDENT STRAIN DOREEN = BETA-LACTAMASE POSITIVE IB = INDUCIBLE BETA-LACTAMASE. APPEARS IN PLACE OF 'S' WITH SPECIES KNOWN TO POSSESS INDUCIBLE BETA-LACTAMASES. POTENTIALLY THEY MAY BECOME RESISTANT TO ALL B-LACTAM DRUGS. PERFORMED BY: [place] [address] PATH[address]IST [address]LECOMM[employer]ICATIONS REPAIRER RD LAURENT M.D. Normal [facility] Comment on above: Performed By: #### C UU #### [address] Endometrial biopsyon 025 Theo Vega 09/11/2024 9:20 AM Endometrial biopsy Date/Time: 09/11/2024 [...] Patient tolerance: tolerated well, no immediate complications [facility] 08-16-2024 [facility] Telephone (PULMLO) IRIS THOMASON ([id number]) 1965 F Date Time Provider Department 08/16/24 WING FARRELL [facility] During your visit today, we recorded the following information about you: Wing Farrell, COLLABORATIVE TEACHER.[facility] 08/16/2024 9:56 AM Signed Please schedule patient for CT chest wo contrast and follow up with the lung nodule clinic team to review. Thank you, Wing Allergies As of Date: 08/16/2024 Noted Allergy Reaction CONTRAST DYE 01/21/2014 14 - Other: See Comments Comments: chest pain , increased HR, increased BP AZITHROMYCIN 10/07/2014 8 - GI Upset Comments: Severe diarrhea BUDESONIDE-FORMOTEROL 03/05/2024 14 - Other: See Comments CELECOXIB 07/12/2022 14 - Other: See Comments Comments: Other Reaction(s): Unknown CEPHALOSPORINS 12/25/2003 16 - Unknown CLAVULANIC ACID 07/12/2022 6 - Diarrhea Comments: Other Reaction(s): diarrhea CLONIDINE 07/12/2022 14 - Other: See Comments Comments: Other Reaction(s): Spasm Other Reaction(s): eye brown pain, spasms Other Reaction(s): Spasm Other Reaction(s): eye brown pain, spasms FLAGYL (METRONIDAZOLE HCL) 10/21/2014 6 - Diarrhea Comments: Had diarrhea and dizziness and funny feeling in head and arms LATEX 07/04/2024 14 - Other: See Comments LEVOFLOXACIN 07/12/2022 6 - Diarrhea 14 - Other: See Comments Comments: Other Reaction(s): Unknown METHYLPREDNISOLONE 07/12/2022 8 - GI Upset 14 - Other: See Comments Comments: Other Reaction(s): Unknown MORPHINE 03/11/2014 14 - Other: See Comments Comments: CHEST PAIN AND INCREASED BLOOD PRESSURE NITROFURANTOIN 07/12/2022 14 - Other: See Comments OXYBUTYNIN 04/26/2014 14 - Other: See Comments Comments: Other Reaction(s): other, Unknown PENICILLINS 10/07/2014 8 - GI Upset Comments: Severe diarrhea SULFA (SULFONAMIDE ANTIBIOTICS) 04/15/2017 9 - Itching 14 - Other: See Comments Comments: Other Reaction(s): itching TAPE (ADHESIVE TAPE (ROSINS)) 01/21/2014 14 - Other: See Comments Comments: blisters TRIMETHOPRIM 07/12/2022 9 - Itching Comments: Other Reaction(s): itching Date Reviewed: 08/16/2024 Reviewed by: Wing Farrell APRN.DYE HOUSE VAT WORKER - Fully Assessed Prescriptions as of 08/20/2024 - Cholecalciferol, Vitamin D3, 50 mcg (2,000 unit) cap Take 2 capsules by mouth once daily. - MAGNESIUM GLYCINATE ORAL Take 240 mg by mouth once daily. High absorption - mv-min/iron/folic/lux cium/vitK (WOMEN'S MULTIVITAMIN ORAL) Take 1 tablet by mouth once daily. - acetaminophen (TYLENOL 8 HOUR ORAL) Take by mouth as needed. - ibuprofen (MOTRIN) 600 mg tablet Take 1 tablet by mouth every 6 hours as needed for Pain. Take with food. - gabapentin (NEURONTIN) 100 mg capsule Take 1 capsule by mouth once daily. - nebivolol (BYSTOLIC) 5 mg tablet Take 2.5 mg by mouth once daily. Problem List As Of Date 08/16/2024 Noted Resolved Female stress incontinence [N39.3] 11/25/2014 Multiple thyroid nodules [E04.2] 12/24/2015 Endometrial polyp [N84.0] 06/13/2017 Intramural and submucous leiomyoma of uterus [D*08/01/2017 Submucous leiomyoma of uterus [D25.0] 08/01/2017 Left ear pain [H92.02] 02/07/2018 Autonomic dysfunction [G90.9] 04/17/2018 POTS (postural orthostatic tachycardia syndrome*04/17/2018 Atypical glandular cells of undetermined signif*05/30/2018 Encounter Status:Closed by WING FARRELL on 08/20/24 Normal [facility] CNNURSEon 07-31-2024 [facility] Nurse Visit (TE) IRIS THOMASON ([id number]) 1965 F Date Time Provider Department 07/31/24 3:00 PM NURSE CARD [facility] TIFFANY TIWARI During your visit today, we recorded the following information about you: Heather Garcia LPN 07/31/2024 2:50 PM Signed HOLTER MONITOR APPLICATION Iris Thomason [id number] present today for the placement of a holter monitor with a history of Palpitations, Pulmonary hypertension. The supervising physician is Dr. Michael Garcia for Lorenzo Lora MD. Chest is cleansed with alcohol Skin prep applied Electrodes place on chest and stress loops secured with tape Fresh battery inserted in monitor Holter monitor secured to patient with belt case Patient instructed on: 1.) Diary documentation 2.) Usage of event button 3.) Maintenance and care of monitor 4.) Safety issues with monitor 5.) Return unit in 48 hours to Cardiology Department drop box prior to 7:30pm on day of removal 6.) Call with problems [phone] Pt aware Holter monitor cannot be instantly viewed and advised pt to go to ER for worsened or severe symptoms. Equipment Return and financial responsibility form signed Patient expresses good verbal understanding of instructions Holter Monitor #:[id number] Holter start time:2:15 PM Heather Garcia LPN Referring Provider: LORENZO LORA [[id number]] Allergies As of Date: 07/31/2024 Noted Allergy Reaction CONTRAST DYE 01/21/2014 14 - Other: See Comments Comments: chest pain , increased HR, increased BP AZITHROMYCIN 10/07/2014 8 - GI Upset Comments: Severe diarrhea BUDESONIDE-FORMOTEROL 03/05/2024 14 - Other: See Comments CELECOXIB 07/12/2022 14 - Other: See Comments Comments: Other Reaction(s): Unknown CEPHALOSPORINS 12/25/2003 16 - Unknown CLAVULANIC ACID 07/12/2022 6 - Diarrhea Comments: Other Reaction(s): diarrhea CLONIDINE 07/12/2022 14 - Other: See Comments Comments: Other Reaction(s): Spasm Other Reaction(s): eye brown pain, spasms Other Reaction(s): Spasm Other Reaction(s): eye brown pain, spasms FLAGYL (METRONIDAZOLE HCL) 10/21/2014 6 - Diarrhea Comments: Had diarrhea and dizziness and funny feeling in head and arms LATEX 07/04/2024 14 - Other: See Comments LEVOFLOXACIN 07/12/2022 6 - Diarrhea 14 - Other: See Comments Comments: Other Reaction(s): Unknown METHYLPREDNISOLONE 07/12/2022 8 - GI Upset 14 - Other: See Comments Comments: Other Reaction(s): Unknown MORPHINE 03/11/2014 14 - Other: See Comments Comments: CHEST PAIN AND INCREASED BLOOD PRESSURE NITROFURANTOIN 07/12/2022 14 - Other: See Comments OXYBUTYNIN 04/26/2014 14 - Other: See Comments Comments: Other Reaction(s): other, Unknown PENICILLINS 10/07/2014 8 - GI Upset Comments: Severe diarrhea SULFA (SULFONAMIDE ANTIBIOTICS) 04/15/2017 9 - Itching 14 - Other: See Comments Comments: Other Reaction(s): itching TAPE (ADHESIVE TAPE (ROSINS)) 01/21/2014 14 - Other: See Comments Comments: blisters TRIMETHOPRIM 07/12/2022 9 - Itching Comments: Other Reaction(s): itching Date Reviewed: 07/04/2024 Reviewed by: Penny Oakley RN - Fully Assessed Reason for Visit: Holter Monitor Application [261] Visit Diagnoses:Palpitation s [R00.2] Pulmonary hypertension (HCC) [I27.20] Order(s):HOLTER MONITOR 48 HOUR [[id number]] Order #: [id number] Prescriptions as of 07/31/2024 - Cholecalciferol, Vitamin D3, 50 mcg (2,000 unit) cap Take 2 capsules by mouth once daily. - azithromycin (ZITHROMAX) 500 mg tablet Take 500 mg by mouth once daily. - MAGNESIUM GLYCINATE ORAL Take 240 mg by mouth once daily. High absorption - mv-min/iron/folic/lux cium/vitK (WOMEN'S MULTIVITAMIN ORAL) Take 1 tablet by mouth once daily. - acetaminophen (TYLENOL 8 HOUR ORAL) Take by mouth as needed. - ibuprofen (MOTRIN) 600 mg tablet Take 1 tablet by mouth every 6 hours as needed for Pain. Take with food. - gabapentin (NEURONTIN) 100 mg capsule Take 1 capsule by mouth once daily. - nebivolol (BYSTOLIC) 5 mg tablet Take 2.5 mg by mouth once daily. Problem List As Of Date 07/31/2024 Noted Resolved Female stress incontinence [N39.3] 11/25/2014 Multiple thyroid nodules [E04.2] 12/24/2015 Endometrial polyp [N84.0] 06/13/2017 Intramural and submucous leiomyoma of uterus [D*08/01/2017 Submucous leiomyoma of uterus [D25.0] 08/01/2017 Left ear pain [H92.02] 02/07/2018 Autonomic dysfunction [G90.9] 04/17/2018 POTS (postural orthostatic tachycardia syndrome*04/17/2018 Atypical glandular cells of undetermined signif*05/30/2018 Encounter Status:Closed by HEATHER GARCIA on 07/31/24 Normal [facility] ECHOon 07-31-2024 CONCLUSIONS: - Exam indication: PHTN - The [...] * * * Final * * * [facility] Ech[facility] Report: Transthoracic Echo [facility] Date of service: 07/31/2024 1:43:38 PM REPAIR MECHANIC Ordering physician: LORENZO LORA Indication: PHTN Symptom(s): Palpitations Technologist: Judy [...] pericardial effusion adjacent to the right atrium. [facility] Echocardiography Echocardiography Report: Transthoracic Echo [facility] Date of service: 07/31/2024 1:43:38 PM REPAIR MECHANIC Ordering physician: LORENZO LORA Indication: PHTN Symptom(s): Palpitations Technologist: Judy [...] pericardial effusion adjacent to the right atrium. CONCLUSIONS: - Exam indication: PHTN - The [...] * * * Final * * * [facility] : [id number] amicsSISUID Normal [facility] HOLTER MONITOR 48 HOURon HOLTER MONITOR 48 HOUR Holter Report : IMPRESSIONS AND FINDINGS: Sinus rhythm with periods of sinus bradycardia. Max HR 115 bpm. Minimum HR 53 Average HR 68 bpm. Rare SVE seen as singles, couplets, triplets and bigeminal cycles. Patient activated event marker correlating with sinus rhythm (HR 60-80 bpm) and PACs. Patient noted symptoms of sqeezing in chest, loss of breath and flutters. Scanned on 08/08/2024 Jennifer COE Confirmed by LIZZETTE DURHAM, WAQAR ([id number]) on 08/15/2024 8:28:58 AM Hookup Date: 20240731 Hookup Time: 440646 Recording Duration: 211067 S Minimum Heart Rate: 53 BPM Minimum Heart Rate Date/Time: 20240801 538146 Maximum Heart Rate: 115 BPM Maximum Heart Rate Date/Time: 2024080236 Average Heart Rate: 68 BPM Longest RR: 1.340 S Longest RR DATE/TIME: 20240801 297924 QRS complexes: 915920 Ventricular Ectopics: 0 Ventricular Isolated Beats: 0 Ventricular Bigeminal Cycles: 0 Ventricular Couplets: 0 Ventricular Runs: 0 Ventricular Beats in Runs: 0 Supraventricular Ectopics: 61 Supraventricular Isolated Beats: 50 Supraventricular Couplets: 4 Supraventricular Runs: 1 Supraventricular Beats in Runs: 3 Longest Supraventricular Run Date/Time: 20240801 Fastest Supraventricular Run, Date/Time: 20240801 Overreading Physician: WAQAR CROCKER MD Normal [facility] XR CHEST 2V FRONTAL/LATon XR CHEST 2V FRONTAL/LAT * * *Final Repor t* * * DATE OF EXAM: Jul 31 2024 1:23PM LNX [id number] - XR CHEST 2V FRONTAL/LAT / PROCEDURE REASON: Primary pulmonary hypertension (HCC) * * * * Physician Interpretation * * * * EXAMINATION: CHEST RADIOGRAPH (2 VIEW FRONTAL and LATERAL) CLINICAL HISTORY: Primary pulmonary hypertension. Chronic [...] cardiomediastinal silhouette. Bones and soft tissues: Unremarkable. IMPRESSION: 1. There is a questionable nodular [...] be communicated with the ordering provider via [employer] staff message or phone message by Imaging Support Services within 2 business days of report finalization. --END OF FINDING-- Algorithms for management of incidental imaging findings can be found on the [facility] Intranet Sharepoint site at: [email or web address]://spo.[email or web address] cumentation/mychartli nks/Managing%20Incide ntal%20Findi ngs%20at%20Imaging/Fo jerri/AllItems.aspx Box Sealing Inspector: DALLAS Transcribe Date/Time: Jul 31 2024 3:02P Dictated by : AUBREE JUAREZ MD This examination was interpreted and the report reviewed and electronically signed by: AUBREE JUAREZ MD on Jul 31 2024 3:05PM EST [id number] [id number] Invalid Interpretation Code [facility] XR Chest PA and LateralOrder ed By: [facility] Provider on 07-31-2024 Interpretation and review of laboratory results Abnormal [facility] Radiology Result ACTIONABLE Abnormal [facility] Comment on above: This report contains an incidental or actionable [...] contact your provider for the next steps. [facility] XR Chest PA and Lateralon IMPRESSION: 1. There is a questionable nodular [...] be communicated with the ordering provider via [employer] staff message or phone message by Imaging Support Services within 2 business days of report finalization. --END OF FINDING-- Algorithms for management of incidental imaging findings can be found on the [facility] Intranet Sharepoint site at: http://spo.[email or web address]/do cumentation/mychartli nks/Managing%20Incide ntal%20Findi ngs%20at%20Imaging/Fo jerri/AllItems.aspx Box Sealing Inspector: DALLAS Transcribe Date/Time: Jul 31 2024 3:02P Dictated by : AUBREE JUAREZ MD This examination was interpreted and the report reviewed and electronically signed by: AUBREE JUAREZ MD on Jul 31 2024 3:05PM [facility] DIVISION OF RADIOLOGY * * *Final Report* * * DATE [...] cardiomediastinal silhouette. Bones and soft tissues: Unremarkable. DIVISION OF RADIOLOGY Provider, [facility] - 07/31/2024 * * *Final Report* * [...] be communicated with the ordering provider via [employer] staff message or phone message by Imaging Support Services within 2 business days of report finalization. --END OF FINDING-- Algorithms for management of incidental imaging findings can be found on the [facility] Intranet Sharepoint site at: http://[email or web address]/do [email or web address]/mychartli nks/Managing%20Incide ntal%20Findi ngs%20at%20Imaging/Fo jerri/AllItems.aspx Box Sealing Inspector: DALLAS Transcribe Date/Time: Jul 31 2024 3:02P Dictated by : AUBREE JUAREZ MD This examination was interpreted and the report reviewed and electronically signed by: AUBREE JUAREZ MD on Jul 31 2024 3:05PM [facility] Radiology Study observation (narrative) Indu wilhelm [facility] Alanine aminotransferase [En zymatic activity/volume] in Serum or PlasmaOrdered By: Gautam Dill on 07-16-2024 ALT [Catalytic activity/Vol] Alanine aminotransferase [Enzymatic activity/volume] in Serum or Plasma 7-52 [facility] Albumin [Mass/volume] in Ser um or Plasma by Bromocresol green (BCG) dye binding methoOrdered By: Gautam Dill on 07-16-2024 Albumin BCG dye [Mass/Vol] Albumin [Mass/volume] in Serum or Plasma by Bromocresol green (BCG) dye binding metho 3.5-5.7 [facility] Alkaline phosphatase [Enzyma tic activity/volume] in Serum or PlasmaOrdered By: Gautam Dill on 07-16-2024 ALP [Catalytic activity/Vol] Alkaline phosphatase [Enzymatic activity/volume] in Serum or Plasma 34-104 [facility] Aspartate aminotransferase [ Enzymatic activity/volume] in Serum or PlasmaOrdered By: Gautam Dill on 07-16-2024 AST [Catalytic activity/Vol] Aspartate aminotransferase [Enzymatic activity/volume] in Serum or Plasma 13-39 [facility] Bilirubin.total [Mass/volume ] in Serum or PlasmaOrdered By: Gautam Dill on 07-16-2024 Bilirubin [Mass/Vol] Bilirubin.total [Mass/volume] in Serum or Plasma 0.3-1.0 [facility] CNPNon 07-16-2024 [facility] ([id number]) 1965 F Date Time Provider Department 07/16/24 LORENZO LORA [facility]ARD [facility] DIN[facility] During your visit today, we recorded the following information about you: Deon Duron 07/16/2024 1:03 PM Signed July 16, 2024 Name: Iris Thomason Patient Contact Number: [phone] (home) [phone] (cell) Date of last office visit: 07/04/2024 Reason For Call: patient calling in stating that she is having an endometrial biopsy on . Is this procedure okay to do due to the lab work that came back last week. Please advise Physician: Lorenzo Lora MD Patient was informed that non-urgent calls may be returned within the next three business days. Yes Deon Duron Allergies As of Date: 07/16/2024 Noted Allergy Reaction CONTRAST DYE 01/21/2014 14 - Other: See Comments Comments: chest pain , increased HR, increased BP AZITHROMYCIN 10/07/2014 8 - GI Upset Comments: Severe diarrhea BUDESONIDE-FORMOTEROL 03/05/2024 14 - Other: See Comments CELECOXIB 07/12/2022 14 - Other: See Comments Comments: Other Reaction(s): Unknown CEPHALOSPORINS 12/25/2003 16 - Unknown CLAVULANIC ACID 07/12/2022 6 - Diarrhea Comments: Other Reaction(s): diarrhea CLONIDINE 07/12/2022 14 - Other: See Comments Comments: Other Reaction(s): Spasm Other Reaction(s): eye brown pain, spasms Other Reaction(s): Spasm Other Reaction(s): eye brown pain, spasms FLAGYL (METRONIDAZOLE HCL) 10/21/2014 6 - Diarrhea Comments: Had diarrhea and dizziness and funny feeling in head and arms LATEX 07/04/2024 14 - Other: See Comments LEVOFLOXACIN 07/12/2022 6 - Diarrhea 14 - Other: See Comments Comments: Other Reaction(s): Unknown METHYLPREDNISOLONE 07/12/2022 8 - GI Upset 14 - Other: See Comments Comments: Other Reaction(s): Unknown MORPHINE 03/11/2014 14 - Other: See Comments Comments: CHEST PAIN AND INCREASED BLOOD PRESSURE NITROFURANTOIN 07/12/2022 14 - Other: See Comments OXYBUTYNIN 04/26/2014 14 - Other: See Comments Comments: Other Reaction(s): other, Unknown PENICILLINS 10/07/2014 8 - GI Upset Comments: Severe diarrhea SULFA (SULFONAMIDE ANTIBIOTICS) 04/15/2017 9 - Itching 14 - Other: See Comments Comments: Other Reaction(s): itching TAPE (ADHESIVE TAPE (ROSINS)) 01/21/2014 14 - Other: See Comments Comments: blisters TRIMETHOPRIM 07/12/2022 9 - Itching Comments: Other Reaction(s): itching Date Reviewed: 07/04/2024 Reviewed by: Penny Oakley RN - Fully Assessed Prescriptions as of 07/26/2024 - Cholecalciferol, Vitamin D3, 50 mcg (2,000 unit) cap Take 2 capsules by mouth once daily. - azithromycin (ZITHROMAX) 500 mg tablet Take 500 mg by mouth once daily. - MAGNESIUM GLYCINATE ORAL Take 240 mg by mouth once daily. High absorption - mv-min/iron/folic/lux cium/vitK (WOMEN'S MULTIVITAMIN ORAL) Take 1 tablet by mouth once daily. - acetaminophen (TYLENOL 8 HOUR ORAL) Take by mouth as needed. - ibuprofen (MOTRIN) 600 mg tablet Take 1 tablet by mouth every 6 hours as needed for Pain. Take with food. - gabapentin (NEURONTIN) 100 mg capsule Take 1 capsule by mouth once daily. - nebivolol (BYSTOLIC) 5 mg tablet Take 2.5 mg by mouth once daily. Problem List As Of Date 07/16/2024 Noted Resolved Female stress incontinence [N39.3] 11/25/2014 Multiple thyroid nodules [E04.2] 12/24/2015 Endometrial polyp [N84.0] 06/13/2017 Intramural and submucous leiomyoma of uterus [D*08/01/2017 Submucous leiomyoma of uterus [D25.0] 08/01/2017 Left ear pain [H92.02] 02/07/2018 Autonomic dysfunction [G90.9] 04/17/2018 POTS (postural orthostatic tachycardia syndrome*04/17/2018 Atypical glandular cells of undetermined signif*05/30/2018 Encounter Status:Closed by LORENZO LORA on 07/26/24 Normal [facility] Calcium [Mass/volume] in Ser um or PlasmaOrdered By: Gautam Dill on 07-16-2024 Calcium [Mass/Vol] Calcium [Mass/volume ] in Serum or Plasma 8.6-10.3 [facility] Carbon dioxide, total [Moles /volume] in Serum or PlasmaOrdered By: Gautam Dill on 07-16-2024 CO2 [Moles/Vol] Carbon dioxide, tota l [Moles/volume] in Serum or Plasma 21.0-31.0 [facility] Chloride [Moles/volume] in S bonita or PlasmaOrdered By: Gautam Dill on 07-16-2024 Chloride [Moles/Vol] Chloride [Moles/volume] in Serum or Plasma High 98-107 [facility] Comprehensive Metabolic Pane vinny 07-16-2024 Albumin [Mass/Vol] 4.5 g/dL Normal 3.5-5.7 [facility] Comment on above: Performed By: #### C MP, HS TROP #### [facility] [address] Albumin/Globulin [Mass ratio] 2.4 {ratio} Normal [facility] Comment on above: Performed By: #### C MP, HS TROP #### [address] ALP [Catalytic activity/Vol] 84 U/L Normal 34-104 [facility] Comment on above: Result Comment: PERF ORMED BY: [place] [address] PATHOLOGIST TELECOMMUNICATIONS REPAIR[address] RD LAURENT M.D. Performed By: #### C MP, HS TROP #### [address] ALT [Catalytic activity/Vol] 18 U/L Normal 7-52 [facility] Comment on above: Performed By: #### C MP, HS TROP #### [address] Anion gap [Moles/Vol] 6.7 mmol/L Normal 6.0-15.0 [facility] Comment on above: Performed By: #### C MP, HS TROP #### [facility] [address] [place] [address] [place] AST [Catalytic activity/Vol] 17 U/L Normal 13-39 [facility] Comment on above: Performed By: #### C MP, HS TROP #### [address] Bilirubin [Mass/Vol] 0.7 mg/dL Normal 0.3-1.0 [facility] Comment on above: Performed By: #### C MP, HS TROP #### [facility] [address] [place] [id number] [place] Calcium [Mass/Vol] 9.4 mg/dL Normal 8.6-10.3 [facility] Comment on above: Performed By: #### C MP, HS TROP #### [facility] [address] [place] [id number] [place] Chloride [Moles/Vol] 108 mmol/L High 98-107 [facility] Comment on above: Performed By: #### C MP, HS TROP #### [facility] [address] [place] [id number] [place] CO2 [Moles/Vol] 29.2 mmol/L Normal 21.0-31.0 [facility] Comment on above: Performed By: #### C MP, HS TROP #### [facility] [address] [place] [address] [place] Creatinine [Mass/Vol] 0.90 mg/dL Normal 0.60-1.20 [facility] Comment on above: Performed By: #### C MP, HS TROP #### [facility] [address] [place] [id number] [place] GFR/1.73 sq M.predicted MDRD (S/P/Bld) [Vol rate/Area] mL/min/{1.73_m2} Normal [facility] Comment on above: Performed By: #### C MP, HS TROP #### [facility] [address] [place] [phone] [place] Globulin (S) [Mass/Vol] 1.9 g/dL Normal T [facility] Comment on above: Performed By: #### C MP, HS TROP #### [facility] [address] [place] [phone] [place] Glucose [Mass/Vol] 90 mg/dL Normal 70-100 [facility] Comment on above: Result Comment: [place] Glucose Reference Range is dependent on time and content of last meal. Glucose of more than 200 mg/dL in a nonstressed, ambulatory subject supports the diagnosis of Diabetes Mellitus. ADA recommended reference range Performed By: #### C MP, HS TROP #### [facility] [address] [place] [id number] [place] Potassium [Moles/Vol] 3.9 mmol/L Normal 3.5-5.1 [facility] Comment on above: Performed By: #### C MP, HS TROP #### [facility] [address] [place] [phone] [place] Protein [Mass/Vol] 6.4 g/dL Normal 6.4-8.9 [facility] Comment on above: Performed By: #### C MP, HS TROP #### [facility] [address] [place] [phone] [place] Sodium [Moles/Vol] 140 mmol/L Normal 136-145 [facility] Comment on above: Performed By: #### C MP, HS TROP #### [facility] [address] [place] [id number] [place] Urea nitrogen [Mass/Vol] 15 mg/dL Normal 7-25 [facility] Comment on above: Performed By: #### C MP, HS TROP #### [facility] [address] [place] [id number] [place] Creatinine [Mass/volume] in Serum or PlasmaOrdered By: Gautam Dill on 07-16-2024 Creatinine [Mass/Vol] Creatinine [Mass/volume] in Serum or Plasma 0.60-1.20 [facility] Globulin Calc (S) [Mass/Vol] Ordered By: Gautam Dill on 07-16-2024 Globulin (S) [Mass/Vol] Serum globulin measurement by calculation (mass/volume) [facility] Glucose [Mass/volume] in Ser um or PlasmaOrdered By: Gautam Dill on 07-16-2024 Glucose [Mass/Vol] Glucose [Mass/volume ] in Serum or Plasma 70-100 [facility] Comment on above: ADA recommended refe rence rangeRandom Glucose Reference Range is dependent on time and content of last meal. Glucose of more than 200 mg/dL in a nonstressed, ambulatory subject supports the diagnosis of Diabetes Mellitus. No Panel InformationOrdered By: Gautam Dill on 07-16-2024 Estimated GFR (CKD-EPI) > 60.0 mL/Min [facility] Creatinine Clearance (Chem N/A [facility] Potassium [Moles/volume] in Serum or PlasmaOrdered By: Gautam Dill on 07-16-2024 Potassium [Moles/Vol] Potassium [Moles/volume] in Serum or Plasma 3.5-5.1 [facility] Protein [Mass/volume] in Ser um or PlasmaOrdered By: Gautam Dill on 07-16-2024 Protein [Mass/Vol] Protein [Mass/volume ] in Serum or Plasma 6.4-8.9 [facility] Serum or plasma albumin/glob ulin mass ratioOrdered By: Gautam Dill on 07-16-2024 Albumin/Globulin [Mass ratio] Serum or plasma albumin/globulin mass ratio [facility] Serum or plasma anion gap de terminationOrdered By: Gautam Dill on 07-16-2024 Anion gap [Moles/Vol] Serum or plasma an ion gap determination 6.0-15.0 [facility] Sodium [Moles/volume] in Ser um or PlasmaOrdered By: Gautam Dill on 07-16-2024 Sodium [Moles/Vol] Sodium [Moles/volume ] in Serum or Plasma 136-145 [facility] Troponin I High Sensitivityo n 07-16-2024 Troponin I High Sensitivity <3 Normal 0-15 [facility] Comment on above: Result Comment: The Troponin units of report have been changed to meet the Chest Pain Accreditation requirement, element EC5.M1l2. Troponin units are changed from pg/ml to ng/L. Also, the decimal is removed and results are in whole numbers. PERFORMED BY: [place] [address] [address]S REPAIR[address] LAURENT M.D. Performed By: #### C MP, TROP #### [address] Troponin I.cardiac [Mass/vol ume] in Serum or Plasma by Detection limit <= 0.01 ng/Ordered By: Gautam Dill on 07-16-2024 Troponin I.cardiac DL <= 0.01 ng/mL [Mass/Vol] Troponin I.cardiac [Mass/volume] in Serum or Plasma by Detection limit <= 0.01 ng/ 0-15 [facility] Comment on above: The Troponin units o f report have been changed to meet the Chest Pain Accreditation requirement, element EC5.M1l2. Troponin units are changed from pg/ml to ng/L. Also, the decimal is removed and results are in whole numbers. Urea nitrogen [Mass/volume] in Serum or PlasmaOrdered By: Gautam Dill on 07-16-2024 Urea nitrogen [Mass/Vol] Urea nitrogen [Mass/volume] in Serum or Plasma 11-30 [facility] Documentationon 07-15-2024 Documentation [id number] Iris Thomason 1965 F Date Provider Department Center 07/15/2024 [id number] SEQUEIRA [facility] HEART HI HeartVAS No family history on file Normal [facility] CNPNon 07-09-2024 CNPN Telephone (CARD [facility]) IRIS THOMASON ([id number]) 1965 F Date Time Provider Department 07/09/24 LORENZO LORA [facility]ARD [facility] During your visit today, we recorded the following information about you: Rohini Day 07/09/2024 12:29 PM Addendum July 09, 2024 Name: Iris Thomason Patient Contact Number: [phone] (home) [phone] (cell) Date of last office visit: 07/04/2024 Reason For Call: Pt called stating that she has done concerns about her recent lab result, and would like to speak with a nurse. Physician: Lorenzo Lora MD Patient was informed that non-urgent calls may be returned within the next three business days. Yes Rohini Day Allergies As of Date: 07/09/2024 Noted Allergy Reaction CONTRAST DYE 01/21/2014 14 - Other: See Comments Comments: chest pain , increased HR, increased BP AZITHROMYCIN 10/07/2014 8 - GI Upset Comments: Severe diarrhea BUDESONIDE-FORMOTEROL 03/05/2024 14 - Other: See Comments CELECOXIB 07/12/2022 14 - Other: See Comments Comments: Other Reaction(s): Unknown CEPHALOSPORINS 12/25/2003 16 - Unknown CLAVULANIC ACID 07/12/2022 6 - Diarrhea Comments: Other Reaction(s): diarrhea CLONIDINE 07/12/2022 14 - Other: See Comments Comments: Other Reaction(s): Spasm Other Reaction(s): eye brown pain, spasms Other Reaction(s): Spasm Other Reaction(s): eye brown pain, spasms FLAGYL (METRONIDAZOLE HCL) 10/21/2014 6 - Diarrhea Comments: Had diarrhea and dizziness and funny feeling in head and arms LATEX 07/04/2024 14 - Other: See Comments LEVOFLOXACIN 07/12/2022 6 - Diarrhea 14 - Other: See Comments Comments: Other Reaction(s): Unknown METHYLPREDNISOLONE 07/12/2022 8 - GI Upset 14 - Other: See Comments Comments: Other Reaction(s): Unknown MORPHINE 03/11/2014 14 - Other: See Comments Comments: CHEST PAIN AND INCREASED BLOOD PRESSURE NITROFURANTOIN 07/12/2022 14 - Other: See Comments OXYBUTYNIN 04/26/2014 14 - Other: See Comments Comments: Other Reaction(s): other, Unknown PENICILLINS 10/07/2014 8 - GI Upset Comments: Severe diarrhea SULFA (SULFONAMIDE ANTIBIOTICS) 04/15/2017 9 - Itching 14 - Other: See Comments Comments: Other Reaction(s): itching TAPE (ADHESIVE TAPE (ROSINS)) 01/21/2014 14 - Other: See Comments Comments: blisters TRIMETHOPRIM 07/12/2022 9 - Itching Comments: Other Reaction(s): itching Date Reviewed: 07/04/2024 Reviewed by: Penny Oakley, PAULA - Fully Assessed Reason for Visit: Advice Only [[id number]] Prescriptions as of 07/17/2024 - Cholecalciferol, Vitamin D3, 50 mcg (2,000 unit) cap Take 2 capsules by mouth once daily. - azithromycin (ZITHROMAX) 500 mg tablet Take 500 mg by mouth once daily. - MAGNESIUM GLYCINATE ORAL Take 240 mg by mouth once daily. High absorption - mv-min/iron/folic/lux cium/vitK (WOMEN'S MULTIVITAMIN ORAL) Take 1 tablet by mouth once daily. - acetaminophen (TYLENOL 8 HOUR ORAL) Take by mouth as needed. - ibuprofen (MOTRIN) 600 mg tablet Take 1 tablet by mouth every 6 hours as needed for Pain. Take with food. - gabapentin (NEURONTIN) 100 mg capsule Take 1 capsule by mouth once daily. - nebivolol (BYSTOLIC) 5 mg tablet Take 2.5 mg by mouth once daily. Problem List As Of Date 07/09/2024 Noted Resolved Female stress incontinence [N39.3] 11/25/2014 Multiple thyroid nodules [E04.2] 12/24/2015 Endometrial polyp [N84.0] 06/13/2017 Intramural and submucous leiomyoma of uterus [D*08/01/2017 Submucous leiomyoma of uterus [D25.0] 08/01/2017 Left ear pain [H92.02] 02/07/2018 Autonomic dysfunction [G90.9] 04/17/2018 POTS (postural orthostatic tachycardia syndrome*04/17/2018 Atypical glandular cells of undetermined signif*05/30/2018 Encounter Status:Closed by LORENZO LORA on 07/17/24 [facility] Telephone (RIQ) IRIS THOMASON ([id number]) 1965 F Date Time Provider Department 07/09/24 PATRICIO MADRID RIQ During your visit today, we recorded the following information about you: Ashutosh Anthony 07/09/2024 4:46 PM Signed Referring physician: Guido Ventura Diagnosis: PH Are there epic records: Yes Are there care everywhere records: Yes Has a referral form been faxed: No Has patient been added to spreadsheet: No Routing: If records complete - route to [facility] for clinical team review. If records incomplete - please route to medical administrative specialist. Radha Laguerre, RN 07/10/2024 8:20 AM Signed Referral has previously been received. Awaiting scheduling. Radha Laguerre RN Allergies As of Date: 07/09/2024 Noted Allergy Reaction CONTRAST DYE 01/21/2014 14 - Other: See Comments Comments: chest pain , increased HR, increased BP AZITHROMYCIN 10/07/2014 8 - GI Upset Comments: Severe diarrhea BUDESONIDE-FORMOTEROL 03/05/2024 14 - Other: See Comments CELECOXIB 07/12/2022 14 - Other: See Comments Comments: Other Reaction(s): Unknown CEPHALOSPORINS 12/25/2003 16 - Unknown CLAVULANIC ACID 07/12/2022 6 - Diarrhea Comments: Other Reaction(s): diarrhea CLONIDINE 07/12/2022 14 - Other: See Comments Comments: Other Reaction(s): Spasm Other Reaction(s): eye brown pain, spasms Other Reaction(s): Spasm Other Reaction(s): eye brown pain, spasms FLAGYL (METRONIDAZOLE HCL) 10/21/2014 6 - Diarrhea Comments: Had diarrhea and dizziness and funny feeling in head and arms LATEX 07/04/2024 14 - Other: See Comments LEVOFLOXACIN 07/12/2022 6 - Diarrhea 14 - Other: See Comments Comments: Other Reaction(s): Unknown METHYLPREDNISOLONE 07/12/2022 8 - GI Upset 14 - Other: See Comments Comments: Other Reaction(s): Unknown MORPHINE 03/11/2014 14 - Other: See Comments Comments: CHEST PAIN AND INCREASED BLOOD PRESSURE NITROFURANTOIN 07/12/2022 14 - Other: See Comments OXYBUTYNIN 04/26/2014 14 - Other: See Comments Comments: Other Reaction(s): other, Unknown PENICILLINS 10/07/2014 8 - GI Upset Comments: Severe diarrhea SULFA (SULFONAMIDE ANTIBIOTICS) 04/15/2017 9 - Itching 14 - Other: See Comments Comments: Other Reaction(s): itching TAPE (ADHESIVE TAPE (ROSINS)) 01/21/2014 14 - Other: See Comments Comments: blisters TRIMETHOPRIM 07/12/2022 9 - Itching Comments: Other Reaction(s): itching Date Reviewed: 07/04/2024 Reviewed by: Penny Oakley RN - Fully Assessed Prescriptions as of 07/10/2024 - Cholecalciferol, Vitamin D3, 50 mcg (2,000 unit) cap Take 2 capsules by mouth once daily. - azithromycin (ZITHROMAX) 500 mg tablet Take 500 mg by mouth once daily. - MAGNESIUM GLYCINATE ORAL Take 240 mg by mouth once daily. High absorption - mv-min/iron/folic/lux cium/vitK (WOMEN'S MULTIVITAMIN ORAL) Take 1 tablet by mouth once daily. - acetaminophen (TYLENOL 8 HOUR ORAL) Take by mouth as needed. - ibuprofen (MOTRIN) 600 mg tablet Take 1 tablet by mouth every 6 hours as needed for Pain. Take with food. - gabapentin (NEURONTIN) 100 mg capsule Take 1 capsule by mouth once daily. - nebivolol (BYSTOLIC) 5 mg tablet Take 2.5 mg by mouth once daily. Problem List As Of Date 07/09/2024 Noted Resolved Female stress incontinence [N39.3] 11/25/2014 Multiple thyroid nodules [E04.2] 12/24/2015 Endometrial polyp [N84.0] 06/13/2017 Intramural and submucous leiomyoma of uterus [D*08/01/2017 Submucous leiomyoma of uterus [D25.0] 08/01/2017 Left ear pain [H92.02] 02/07/2018 Autonomic dysfunction [G90.9] 04/17/2018 POTS (postural orthostatic tachycardia syndrome*04/17/2018 Atypical glandular cells of undetermined signif*05/30/2018 Encounter Status:Closed by ASHUTOSH ANTHONY on 07/09/24 Normal [facility] Basophils Auto (Bld) [#/Vol] on 07-06-2024 Basophils (Bld) [#/Vol] Automated basoph il count 0.0-0.1 [facility] Basophils/100 WBC Auto (Bld) on 07-06-2024 Basophils/100 WBC (Bld) Automated basophil % 0. 2-2.0 [facility] CNPNon 07-06-2024 CNPN Telephone ([facility]) IRIS THOMASON ([id number]) 1965 F Date Time Provider Department 07/06/24 LORENZO LORA [facility] During your visit today, we recorded the following information about you: Sanjuana Pardo 07/06/2024 11:03 AM Signed July 06, 2024 Name: Iris Thomason Patient Contact Number: [phone] (home) [phone] (cell) Date of last office visit: 07/04/2024 Reason For Call: Test Results - Patient is calling regarding her abnormal lab results. Her potassium is 5.8. And some other labs were off and causing her concern. I spoke to clinical nurses who indicated she should go to the local ED and have the a BMP drawn to recheck potassium and treated if the level as still high. This information was provided to the patient who verbalized understanding. She would like to speak with Dr. Lora when he is available at [phone]. Physician: Lorenzo Lora MD Patient was informed that non-urgent calls may be returned within the next three business days. Yes Sanjuana Pardo Allergies As of Date: 07/06/2024 Noted Allergy Reaction CONTRAST DYE 01/21/2014 14 - Other: See Comments Comments: chest pain , increased HR, increased BP AZITHROMYCIN 10/07/2014 8 - GI Upset Comments: Severe diarrhea BUDESONIDE-FORMOTEROL 03/05/2024 14 - Other: See Comments CELECOXIB 07/12/2022 14 - Other: See Comments Comments: Other Reaction(s): Unknown CEPHALOSPORINS 12/25/2003 16 - Unknown CLAVULANIC ACID 07/12/2022 6 - Diarrhea Comments: Other Reaction(s): diarrhea CLONIDINE 07/12/2022 14 - Other: See Comments Comments: Other Reaction(s): Spasm Other Reaction(s): eye brown pain, spasms Other Reaction(s): Spasm Other Reaction(s): eye brown pain, spasms FLAGYL (METRONIDAZOLE HCL) 10/21/2014 6 - Diarrhea Comments: Had diarrhea and dizziness and funny feeling in head and arms LATEX 07/04/2024 14 - Other: See Comments LEVOFLOXACIN 07/12/2022 6 - Diarrhea 14 - Other: See Comments Comments: Other Reaction(s): Unknown METHYLPREDNISOLONE 07/12/2022 8 - GI Upset 14 - Other: See Comments Comments: Other Reaction(s): Unknown MORPHINE 03/11/2014 14 - Other: See Comments Comments: CHEST PAIN AND INCREASED BLOOD PRESSURE NITROFURANTOIN 07/12/2022 14 - Other: See Comments OXYBUTYNIN 04/26/2014 14 - Other: See Comments Comments: Other Reaction(s): other, Unknown PENICILLINS 10/07/2014 8 - GI Upset Comments: Severe diarrhea SULFA (SULFONAMIDE ANTIBIOTICS) 04/15/2017 9 - Itching 14 - Other: See Comments Comments: Other Reaction(s): itching TAPE (ADHESIVE TAPE (ROSINS)) 01/21/2014 14 - Other: See Comments Comments: blisters TRIMETHOPRIM 07/12/2022 9 - Itching Comments: Other Reaction(s): itching Date Reviewed: 07/04/2024 Reviewed by: Penny Oakley RN - Fully Assessed Reason for Visit: Results [95] Cmt: Patient is calling regarding her abnormal lab results. Her potassium is 5.8. And some other labs were off and causing her concern. Prescriptions as of 07/17/2024 - Cholecalciferol, Vitamin D3, 50 mcg (2,000 unit) cap Take 2 capsules by mouth once daily. - azithromycin (ZITHROMAX) 500 mg tablet Take 500 mg by mouth once daily. - MAGNESIUM GLYCINATE ORAL Take 240 mg by mouth once daily. High absorption - mv-min/iron/folic/lux cium/vitK (WOMEN'S MULTIVITAMIN ORAL) Take 1 tablet by mouth once daily. - acetaminophen (TYLENOL 8 HOUR ORAL) Take by mouth as needed. - ibuprofen (MOTRIN) 600 mg tablet Take 1 tablet by mouth every 6 hours as needed for Pain. Take with food. - gabapentin (NEURONTIN) 100 mg capsule Take 1 capsule by mouth once daily. - nebivolol (BYSTOLIC) 5 mg tablet Take 2.5 mg by mouth once daily. Problem List As Of Date 07/06/2024 Noted Resolved Female stress incontinence [N39.3] 11/25/2014 Multiple thyroid nodules [E04.2] 12/24/2015 Endometrial polyp [N84.0] 06/13/2017 Intramural and submucous leiomyoma of uterus [D*08/01/2017 Submucous leiomyoma of uterus [D25.0] 08/01/2017 Left ear pain [H92.02] 02/07/2018 Autonomic dysfunction [G90.9] 04/17/2018 POTS (postural orthostatic tachycardia syndrome*04/17/2018 Atypical glandular cells of undetermined signif*05/30/2018 Encounter Status:Closed by LORENZO LORA on 07/17/24 Normal [facility] Eosinophils/100 WBC Auto (Bl d)on 07-06-2024 Eosinophils/100 WBC (Bld) Automated eosinophil % 0.9-7.0 [facility] Erythrocyte distribution wid th Auto (RBC) [Ratio]on 07-06-2024 Erythrocyte distribution width (RBC) [Ratio] Erythrocyte distribution width [Ratio] by Automated count 11.0-15.0 [facility] Estimated glomerular filtrat ion rate (GFR) non- Americanon 07-06-2024 GFR/1.73 sq M.predicted among non-blacks MDRD (S/P/Bld) [Vol rate/Area] Estimated glomerular filtration rate (GFR) non- >=60 mL/min/1.73 m 2 [facility] Hematocrit Auto (Bld) [Volum e fraction]on 07-06-2024 Hematocrit (Bld) [Volume fraction] Hematocrit [Volume Fraction] of Blood by Automated count 36.0-48.0 [facility] Hemoglobin [Mass/volume] in Bloodon 07-06-2024 Hemoglobin (Bld) [Mass/Vol] Hemoglobin [Mass/volume] in Blood 12.0-16.0 [facility] IMMUNOFIXATION SCREEN, SERUM Ordered By: Ca Díaz on 07-06-2024 MPA Result No M protein is identified. No M protein is identified. [facility] Staff Review (MPA) Reviewed by Jay Jay Rain MD, Ph.D ([id number]) [facility] - Chemistry and C hemistry - challengeon 07-06-2024 Calcium [Mass/Vol] 8.9 mg/dL 8.5-10.1 [facility] Chloride [Moles/Vol] 106 mmol/L 98-107 [facility] CO2 [Moles/Vol] 24.0 mmol/L 21.0-32.0 [facility] Creatinine [Mass/Vol] 0.89 mg/dL 0.55-1.02 [facility] GFR/1.73 sq M.predicted MDRD (S/P/Bld) [Vol rate/Area] mL/min/{1.73_m2} >=60 mL/min/1.73 m 2 [facility] Glucose [Mass/Vol] 102 mg/dL 74-106 [facility] Potassium [Moles/Vol] 3.9 mmol/L 3.5-5.1 [facility] Sodium [Moles/Vol] 140 mmol/L 136-145 [facility] Urea nitrogen [Mass/Vol] 12.0 mg/dL 7.0-18.0 [facility] Urea nitrogen/Creatinine [Mass ratio] 13.5 mg/mg [facility] Laboratory - Hematology and Cell countson 07-06-2024 Immature granulocytes/100 WBC (Bld) 0.3 % 0.0-0.5 [facility] Leukocytes [#/volume] correc daron for nucleated erythrocytes in Blood by Automated counon 07-06-2024 WBC corrected for nucl RBC Auto (Bld) [#/Vol] Leukocytes [#/volume] corrected for nucleated erythrocytes in Blood by Automated coun Low 4.0-11.0 [facility] Lymphocytes Auto (Bld) [#/Vo l]on 07-06-2024 Lymphocytes (Bld) [#/Vol] Lymphocytes [#/volume] in Blood by Automated count 1.2-3.8 [facility] Lymphocytes/100 WBC Auto (Bl d)on 07-06-2024 Lymphocytes/100 WBC (Bld) Lymphocytes/100 leukocytes in Blood by Automated count 20.5-60.0 [facility] MCH Auto (RBC) [Entitic mass ]on 07-06-2024 MCH (RBC) [Entitic mass] MCH [Entitic mass] by Automated count 26.7-34.0 [facility] MCHC Auto (RBC) [Mass/Vol]on 07-06-2024 MCHC (RBC) [Mass/Vol] MCHC [Mass/volume] by Automated count 29.9-35.2 [facility] MCV Auto (RBC) [Entitic vol] on 07-06-2024 MCV (RBC) [Entitic vol] MCV [Entitic vol ume] by Automated count 81.0-99.0 [facility] Monocytes Auto (Bld) [#/Vol] on 07-06-2024 Monocytes (Bld) [#/Vol] Automated blood monocyte count Low 0.3-0.8 [facility] Monocytes/100 WBC Auto (Bld) on 07-06-2024 Monocytes/100 WBC (Bld) Automated monocyte % 1. 7-12.0 [facility] Neutrophils Auto (Bld) [#/Vo l]on 07-06-2024 Neutrophils (Bld) [#/Vol] Neutrophils [#/volume] in Blood by Automated count 1.4-6.5 [facility] Neutrophils/100 WBC Auto (Bl d)on 07-06-2024 Neutrophils/100 WBC (Bld) Automated neutrophil % 43.0-75.0 [facility] No Panel Informationon 07-06 Eosinophils # (Auto) 0.2 10 3/uL 0.0-0.7 [facility] Immature Granulocyte # (Auto) 0.01 10 3/uL 0.00-0.03 [facility] Platelet mean volume Auto (B ld) [Entitic vol]on 07-06-2024 Platelet mean volume (Bld) [Entitic vol] Platelet mean volume [Entitic volume] in Blood by Automated count 9.5-13.5 [facility] Platelets Auto (Bld) [#/Vol] on 07-06-2024 Platelets (Bld) [#/Vol] Platelets [#/vol ume] in Blood by Automated count 150-450 [facility] RBC Auto (Bld) [#/Vol]on RBC (Bld) [#/Vol] Erythrocytes [#/volume] in Blood by Automated count 4.20-5.40 [facility] Serum or plasma anion gap de terminationon 07-06-2024 Anion gap [Moles/Vol] Serum or plasma an ion gap determination [facility] CNPNon 07-05-2024 CNPN Telephone ([facility]) IRIS THOMASON ([id number]) 1965 F Date Time Provider Department 07/05/24 LORENZO LORA [facility] During your visit today, we recorded the following information about you: Sanjuana Pardo 07/05/2024 3:22 PM Signed July 05, 2024 Name: Iris Thomason Patient Contact Number: [phone] (home) [phone] (cell) Date of last office visit: 07/04/2024 Reason For Call: Other Issue: Patient went to yesterday to get holter monitor. They were not able to get insurance approval in time. Can she get it at one of the [facility] locations nearer to here like the [facility]? Iris Thomason is asking for someone to call her at [phone]. Physician: Lorenzo Lora MD Patient was informed that non-urgent calls may be returned within the next three business days. Yes Penny Natarajan RN 07/06/2024 3:31 PM Signed Reached out to Emily Gonzalez to help schedule patient locally. Penny Oakley RN July 06, 2024 3:31 PM Allergies As of Date: 07/05/2024 Noted Allergy Reaction CONTRAST DYE 01/21/2014 14 - Other: See Comments Comments: chest pain , increased HR, increased BP AZITHROMYCIN 10/07/2014 8 - GI Upset Comments: Severe diarrhea BUDESONIDE-FORMOTEROL 03/05/2024 14 - Other: See Comments CELECOXIB 07/12/2022 14 - Other: See Comments Comments: Other Reaction(s): Unknown CEPHALOSPORINS 12/25/2003 16 - Unknown CLAVULANIC ACID 07/12/2022 6 - Diarrhea Comments: Other Reaction(s): diarrhea CLONIDINE 07/12/2022 14 - Other: See Comments Comments: Other Reaction(s): Spasm Other Reaction(s): eye brown pain, spasms Other Reaction(s): Spasm Other Reaction(s): eye brown pain, spasms FLAGYL (METRONIDAZOLE HCL) 10/21/2014 6 - Diarrhea Comments: Had diarrhea and dizziness and funny feeling in head and arms LATEX 07/04/2024 14 - Other: See Comments LEVOFLOXACIN 07/12/2022 6 - Diarrhea 14 - Other: See Comments Comments: Other Reaction(s): Unknown METHYLPREDNISOLONE 07/12/2022 8 - GI Upset 14 - Other: See Comments Comments: Other Reaction(s): Unknown MORPHINE 03/11/2014 14 - Other: See Comments Comments: CHEST PAIN AND INCREASED BLOOD PRESSURE NITROFURANTOIN 07/12/2022 14 - Other: See Comments OXYBUTYNIN 04/26/2014 14 - Other: See Comments Comments: Other Reaction(s): other, Unknown PENICILLINS 10/07/2014 8 - GI Upset Comments: Severe diarrhea SULFA (SULFONAMIDE ANTIBIOTICS) 04/15/2017 9 - Itching 14 - Other: See Comments Comments: Other Reaction(s): itching TAPE (ADHESIVE TAPE (ROSINS)) 01/21/2014 14 - Other: See Comments Comments: blisters TRIMETHOPRIM 07/12/2022 9 - Itching Comments: Other Reaction(s): itching Date Reviewed: 07/04/2024 Reviewed by: Penny Oakley RN - Fully Assessed Reason for Visit: Counseling [29] Cmt: Patient went to yesterday to get holter monitor. They were not able to get insurance approval in time. Prescriptions as of 07/06/2024 - Cholecalciferol, Vitamin D3, 50 mcg (2,000 unit) cap Take 2 capsules by mouth once daily. - azithromycin (ZITHROMAX) 500 mg tablet Take 500 mg by mouth once daily. - MAGNESIUM GLYCINATE ORAL Take 240 mg by mouth once daily. High absorption - mv-min/iron/folic/lux cium/vitK (WOMEN'S MULTIVITAMIN ORAL) Take 1 tablet by mouth once daily. - acetaminophen (TYLENOL 8 HOUR ORAL) Take by mouth as needed. - ibuprofen (MOTRIN) 600 mg tablet Take 1 tablet by mouth every 6 hours as needed for Pain. Take with food. - gabapentin (NEURONTIN) 100 mg capsule Take 1 capsule by mouth once daily. - nebivolol (BYSTOLIC) 5 mg tablet Take 2.5 mg by mouth once daily. Problem List As Of Date 07/05/2024 Noted Resolved Female stress incontinence [N39.3] 11/25/2014 Multiple thyroid nodules [E04.2] 12/24/2015 Endometrial polyp [N84.0] 06/13/2017 Intramural and submucous leiomyoma of uterus [D*08/01/2017 Submucous leiomyoma of uterus [D25.0] 08/01/2017 Left ear pain [H92.02] 02/07/2018 Autonomic dysfunction [G90.9] 04/17/2018 POTS (postural orthostatic tachycardia syndrome*04/17/2018 Atypical glandular cells of undetermined signif*05/30/2018 Encounter Status:Closed by PENNY OAKLEY on 07/06/24 Normal [facility] Comprehensive metabolic 2000 panelon 07-05-2024 Albumin [Mass/Vol] 4.5 g/dL 3.9 - 4.9 g/dL [facility] ALP [Catalytic activity/Vol] 99 U/L 34 - 123 U/L [facility] ALT [Catalytic activity/Vol] 26 U/L 7 - 38 U/L [facility] Anion gap [Moles/Vol] 14 mmol/L 8 - 15 mmol/L [facility] AST [Catalytic activity/Vol] 33 U/L 13 - 35 U/L [facility] Bilirubin [Mass/Vol] 0.3 mg/dL 0.2 - 1 .3 mg/dL [facility] Calcium [Mass/Vol] 10 mg/dL 8.5 - 10. 2 mg/dL [facility] Chloride [Moles/Vol] 108 mmol/L High 98 - 10 7 mmol/L [facility] CO2 [Moles/Vol] 22 mmol/L 22 - 30 mmol/L [facility] Creatinine [Mass/Vol] 0.92 mg/dL 0.58 - 0.96 mg/dL [facility] GFR/1.73 sq M.predicted among non-blacks MDRD (S/P/Bld) [Vol rate/Area] 72 mL/min/{1.73_m2} - PINF [facility] Comment on above: Estimated Glomerular Filtration Rate (eGFR) is calculated using the 2020 CKD-EPI creatinine equation. This equation utilizes serum creatinine, sex, and age as parameters. The creatinine assay has traceable calibration to isotope dilution-mass spectrometry. Refer to KDIGO guidelines for clinical interpretation. In patients with unstable renal function, e.g. those with acute kidney injury, the eGFR may not accurately reflect actual GFR. Glucose [Mass/Vol] 85 mg/dL 74 - 99 mg/dL [facility] Comment on above: The [place] Diabete s Association (ADA) provides guidance for cutoff values [...] Standards of Medical Care in Diabetes 2016, [place] Diabetes Association. Diabetes Care. 2016.39(Suppl 1). Potassium [Moles/Vol] 5.8 mmol/L High 3.7 - 5.1 mmol/L [facility] Protein [Mass/Vol] 7 g/dL 6.3 - 8.0 g/dL [facility] Sodium [Moles/Vol] 144 mmol/L 136 - 144 mmol/L [facility] Urea nitrogen [Mass/Vol] 17 mg/dL 7 - 21 mg/dL [facility] KAPPA/CALDERON,FREE,SEROrdered B y: Abimbola Abdul on 07-05-2024 Immunoglobulin light chains.kappa.free (S) [Mass/Vol] 13.1 mg/L 3.3 - 19.4 mg/L [facility] Comment on above: Rarely, increased se rum free light chains levels may not be detected or accurately quantified due to prozone phenomenon or in high viscosity samples using this immunoturbidimetric assay. Correlation with other laboratory results and clinical findings is recommended. The [place] Free Light Chain was performed using the Binding Site Optilite immunoturbidimetric method. Result obtained with different assay methods or kits cannot be used interchangeably. Immunoglobulin light chains.kappa/Immunoglob ulin light chains.lambda (S) [Mass ratio] 1.54 0.26 - 1.65 [facility] Immunoglobulin light chains.lambda.free [Mass/Vol] 8.5 mg/L 5.7 - 26.3 mg/L [facility] Comment on above: Rarely, increased se rum free light chains levels may not be detected or accurately quantified due to prozone phenomenon or in high viscosity samples using this immunoturbidimetric assay. Correlation with other laboratory results and clinical findings is recommended. The [place] Free Light Chain was performed using the Binding Site Optilite immunoturbidimetric method. Result obtained with different assay methods or kits cannot be used interchangeably. Interpretation and review of laboratory results Normal [facility] Lipid 1996 panelon 5 Cholesterol [Mass/Vol] 217 mg/dL High NINF - 200 mg/dL [facility] Comment on above: <200 mg/dL, Desirabl e 200-239 mg/dL, Borderline high >239 mg/dL, High Cholesterol in HDL [Mass/Vol] 71 mg/dL 39 - PINF mg/dL [facility] Comment on above: 40-59 mg/dL, Accepta ble >59 mg/dL, High: Negative risk factor for coronary heart disease <40 mg/dL, Low: Positive risk factor for coronary heart disease Cholesterol in LDL [Mass/Vol] 122 mg/dL High NINF - 100 mg/dL [facility] Comment on above: <100 mg/dL, Optimal 100-129 mg/dL, Near optimal/above optimal 130-159 mg/dL, Borderline high 160-189 mg/dL, High >189 mg/dL, Very high Secondary prevention optimal LDL Cholesterol levels are recommended to be < 70 mg/dL Cholesterol in LDL/Cholesterol in HDL [Mass ratio] 1.72 {ratio} NINF - 2.54 [facility] Comment on above: Reference: 1. National Cholesterol Education Program ATP III Guideline At-A-Glance Quick Desk Reference: National Heart, Lung, and Blood [place]. National Institutes of Health. 2001: NIH Publication No. 01-3305. 2. An International Atherosclerosis Society position paper: global recommendations for the management of dyslipidemia: executive summary, Atherosclerosis. 2014: 232(2):410-413. Cholesterol in VLDL [Mass/Vol] 24 mg/dL NINF - 30 mg/dL [facility] Cholesterol non HDL [Mass/Vol] 146 mg/dL High NINF - 130 mg/dL [facility] Comment on above: <130 mg/dL, Optimal 130-159 mg/dL, Near optimal/above optimal 160-189 mg/dL, Borderline high 190-219 mg/dL, High >219 mg/dL, Very high Secondary prevention optimal non HDL Cholesterol levels are recommended to be <100 mg/dL Cholesterol.total/Dorinda sterol in HDL [Mass ratio] 3.06 {ratio} NINF - 5.10 [facility] Fasting Time 3.5 hrs [facility] Triglyceride [Mass/Vol] 119 mg/dL NINF - 150 mg/dL [facility] Comment on above: <150 mg/dL, Normal 150-199 mg/dL, Borderline high 200-499 mg/dL, High >499 mg/dL, Very high NT PRO BNPon 07-05-2024 Natriuretic peptide.B prohormone N-Terminal [Mass/Vol] 85 pg/mL NINF - 125 pg/mL [facility] Natriuretic peptide.B prohor flor N-Terminal [Mass/Vol]on 07-05-2024 Interpretation and review of laboratory results Normal [facility] No Panel Informationon 07-05 Interpretation and review of laboratory results Abnormal [facility] THYROID STIMULATING HORMONEo n 07-05-2024 TSH Qn 1.46 m[IU]/L [facility] TSH Qnon 07-05-2024 Interpretation and review of laboratory results Normal [facility] Basophils Auto (Bld) [#/Vol] on 07-04-2024 Basophils (Bld) [#/Vol] Automated basoph il count <0.11 [facility] Basophils/100 WBC Auto (Bld) on 07-04-2024 Basophils/100 WBC (Bld) Automated basophil % [facility] Blood manual differential co mment interpretation narrativeon 07-04-2024 Manual differential comment [place] (Bld) [Interp] Blood manual differential comment interpretation narrative [facility] CBC W Auto Differential pane l (Bld)on 07-04-2024 Basophils (Bld) [#/Vol] 0.04 10*3/uL [facility] Basophils/100 WBC (Bld) 0.8 % [facility] Differential cell count method Nom (Bld) Auto [facility] Eosinophils (Bld) [#/Vol] 0.29 10*3/uL [facility] Eosinophils/100 WBC (Bld) 5.8 % [facility] Erythrocyte distribution width (RBC) [Ratio] 13.9 % 11.5 - 15.0 % [facility] Hematocrit (Bld) [Volume fraction] 45.7 % 36.0 - 46.0 % [facility] Hemoglobin (Bld) [Mass/Vol] 14.7 g/dL 11.5 - 15.5 g/dL [facility] Immature granulocytes (Bld) [#/Vol] 0.04 10*3/uL [facility] Immature granulocytes/100 WBC (Bld) 0.8 % [facility] Lymphocytes (Bld) [#/Vol] 1.78 10*3/uL [facility] Lymphocytes/100 WBC (Bld) 35.3 % [facility] MCH (RBC) [Entitic mass] 29.9 pg 26.0 - 34.0 pg [facility] MCHC (RBC) [Mass/Vol] 32.2 g/dL 30.5 - 36.0 g/dL [facility] MCV (RBC) [Entitic vol] 93.1 fL 80.0 - 100.0 fL [facility] Monocytes (Bld) [#/Vol] 0.34 10*3/uL [facility] Monocytes/100 WBC (Bld) 6.7 % [facility] Neutrophils (Bld) [#/Vol] 2.55 10*3/uL [facility] Neutrophils/100 WBC (Bld) 50.6 % [facility] Nucleated RBC (Bld) [#/Vol] [facility] Nucleated RBC/100 WBC (Bld) [Ratio] 0 % /100 WBC [facility] Platelet mean volume (Bld) [Entitic vol] 11 fL 9.0 - 12.7 fL [facility] Platelets (Bld) [#/Vol] 185 10*3/uL [facility] RBC (Bld) [#/Vol] 4.91 10*6/uL 3.90 - 5.2 0 m/uL [facility] WBC (Bld) [#/Vol] 5.04 10*3/uL [facility] Basophils (Bld) [#/Vol] 0.04 10*3/uL Normal <0.11 [facility] Comment on above: Order Comment: Speci men Type: BLOOD SPECIMENOrdering Facility: [facility] Address: [address] [place] [address] Performed By: #### 5 [id number] ####[facility] LABCLIA [id number] [facility] [address], [place] [address] [place] Basophils/100 WBC (Bld) 0.8 % Normal [facility] Comment on above: Order Comment: Speci men Type: BLOOD SPECIMENOrdering Facility: [facility] Address: [address] [place] [address] Performed By: #### 5 7021-8 ####[facility] LABCLIA [id number] [place] [address] [place] Differential cell count method Nom (Bld) Auto Normal [facility] Comment on above: Order Comment: Speci men Type: BLOOD SPECIMENOrdering Facility: [facility] Address: [address] [place] [address] Performed By: #### 5 7021-8 ####[facility] LABCLIA [id number] [address] [place] Eosinophils (Bld) [#/Vol] 0.29 10*3/uL Normal <0.46 [facility] Comment on above: Order Comment: Speci men Type: BLOOD SPECIMENOrdering Facility: [facility] Address: [address] [place] [address] Performed By: #### 5 7021-8 ####[facility] LABCLIA [id number] [address] [place] Eosinophils/100 WBC (Bld) 5.8 % Normal [facility] Comment on above: Order Comment: Speci men Type: BLOOD SPECIMENOrdering Facility: [facility] Address: [address] [place] [address] Performed By: #### 5 7021-8 ####[facility] LABCLIA [id number] [place] [address] [place] Erythrocyte distribution width (RBC) [Ratio] 13.9 % Normal 11.5-15.0 [facility] Comment on above: Order Comment: Speci men Type: BLOOD SPECIMENOrdering Facility: [facility] Address: [address] [place] [address] Performed By: #### 5 7021-8 ####[facility] LABCLIA [id number] [address] [address] [place] Hematocrit (Bld) [Volume fraction] 45.7 % Normal 36.0-46.0 [facility] Comment on above: Order Comment: Speci men Type: BLOOD SPECIMENOrdering Facility: [facility] Address: [address] [place] [address] Performed By: #### 5 7021-8 ####[facility] LABCLIA [id number] [address], [place] [address] [place] Hemoglobin (Bld) [Mass/Vol] 14.7 g/dL Normal 11.5-15.5 [facility] Comment on above: Order Comment: Speci men Type: BLOOD SPECIMENOrdering Facility: [facility] Address: [address] [place] [address] Performed By: #### 5 7021-8 ####[facility] LABIA [id number] [address], [place] [address] [place] Immature granulocytes (Bld) [#/Vol] 0.04 10*3/uL Normal <0.10 [facility] Comment on above: Order Comment: Speci men Type: BLOOD SPECIMENOrdering Facility: [facility] Address: [address] [place] [address] Performed By: #### 5 7021-8 ####[facility] LABIA [id number] [place] [address] [place] Immature granulocytes/100 WBC (Bld) 0.8 % Normal [facility] Comment on above: Order Comment: Speci men Type: BLOOD SPECIMENOrdering Facility: [facility] Address: [address] [place] [address] Performed By: #### 5 7021-8 ####[facility] LABCLIA [id number] [place] [address] [place] Lymphocytes (Bld) [#/Vol] 1.78 10*3/uL Normal 1.00-4.00 [facility] Comment on above: Order Comment: Speci men Type: BLOOD SPECIMENOrdering Facility: [facility] Address: [address] [place] [address] Performed By: #### 5 7021-8 ####[facility] LABCLIA [id number] [place] [address] [place] Lymphocytes/100 WBC (Bld) 35.3 % Normal [facility] Comment on above: Order Comment: Speci men Type: BLOOD SPECIMENOrdering Facility: [facility] Address: [address] [place] [address] Performed By: #### 5 7021-8 ####[facility] LABIA [id number] [place] [address] [place] MCH (RBC) [Entitic mass] 29.9 pg Normal 26.0-34.0 [facility] Comment on above: Order Comment: Speci men Type: BLOOD SPECIMENOrdering Facility: [facility] Address: [address] [place] [address] Performed By: #### 5 7021-8 ####[facility] LABCLIA [id number] [place] [address] [place] MCHC (RBC) [Mass/Vol] 32.2 g/dL Normal 30.5-36.0 [facility] Comment on above: Order Comment: Speci men Type: BLOOD SPECIMENOrdering Facility: [facility] Address: [address] [place] [address] Performed By: #### 5 7021-8 ####[facility] LABIA [id number] [place] [address] [place] MCV (RBC) [Entitic vol] 93.1 fL Normal 80.0-100.0 C [facility] Comment on above: Order Comment: Speci men Type: BLOOD SPECIMENOrdering Facility: [facility] Address: [address] [place] [address] Performed By: #### 5 7021-8 ####[facility] LABCLIA [id number] [place] [address] [place] Monocytes (Bld) [#/Vol] 0.34 10*3/uL Normal <0.87 [facility] Comment on above: Order Comment: Speci men Type: BLOOD SPECIMENOrdering Facility: [facility] Address: [address] [place] [address] Performed By: #### 5 7021-8 ####[facility] LABCLIA [id number] [place] [address] [place] Monocytes/100 WBC (Bld) 6.7 % Normal [facility] Comment on above: Order Comment: Speci men Type: BLOOD SPECIMENOrdering Facility: [facility] Address: [address] [place] [address] Performed By: #### 5 7021-8 ####[facility] LABCLIA [id number] [place] [address] [place] Neutrophils (Bld) [#/Vol] 2.55 10*3/uL Normal 1.45-7.50 [facility] Comment on above: Order Comment: Speci men Type: BLOOD SPECIMENOrdering Facility: [facility] Address: [address] [place] [address] Performed By: #### 5 7021-8 ####[facility] LABCLIA [id number] [place] [address] [place] Neutrophils/100 WBC (Bld) 50.6 % Normal [facility] Comment on above: Order Comment: Speci men Type: BLOOD SPECIMENOrdering Facility: [facility] Address: [address] [place] [address] Performed By: #### 5 7021-8 ####[facility] LABCLIA [id number] [place] [address] [place] Nucleated RBC (Bld) [#/Vol] 10*3/uL Normal <0.01 [facility] Comment on above: Order Comment: Speci men Type: BLOOD SPECIMENOrdering Facility: [facility] Address: [address] [place] [address] Performed By: #### 5 7021-8 ####[facility] LABCLIA [id number] [place] [address] [place] Nucleated RBC/100 WBC (Bld) [Ratio] 0.0 /100 WBC Normal [facility] Comment on above: Order Comment: Speci men Type: BLOOD SPECIMENOrdering Facility: [facility] Address: [address] [place] [address] Performed By: #### 5 7021-8 ####[facility] LABIA [id number] [place] [address] [place] Platelet mean volume (Bld) [Entitic vol] 11.0 fL Normal 9.0-12.7 [facility] Comment on above: Order Comment: Speci men Type: BLOOD SPECIMENOrdering Facility: [facility] Address: [address] [place] [address] Performed By: #### 5 7021-8 ####[facility] LABCLIA [id number] [place] [id number] [place] Platelets (Bld) [#/Vol] 185 10*3/uL Normal 150-400 [facility] Comment on above: Order Comment: Speci men Type: BLOOD SPECIMENOrdering Facility: [facility] Address: [address] [place] [address] Performed By: #### 5 7021-8 ####[facility] LABCLIA [id number] [place] [address] [place] RBC (Bld) [#/Vol] 4.91 10*6/uL Normal 3.90-5.20 [facility] Comment on above: Order Comment: Speci men Type: BLOOD SPECIMENOrdering Facility: [facility] Address: [address] [place] [address] Performed By: #### 5 7021-8 ####[facility] LABCLIA [id number] [place] [address] [place] WBC (Bld) [#/Vol] 5.04 10*3/uL Normal 3.70-11.00 [facility] Comment on above: Order Comment: Speci men Type: BLOOD SPECIMENOrdering Facility: [facility] Address: [address] [place] [address] Performed By: #### 5 7021-8 ####[facility] LABCLIA [id number] [place] [address] [place] CK SerPl-cCncon 07-04-2024 CK [Catalytic activity/Vol] 74 U/L Normal 42-196 [facility] Comment on above: Order Comment: Speci men Type: BLOOD SPECIMENOrdering Facility: [facility] Address: [address] [place] [address] Performed By: #### H STNT, 2157-6 ####[facility] LABCLIA [id number] [place] [address] [place] CK [Catalytic activity/Vol]o n 07-04-2024 Interpretation and review of laboratory results Normal [facility] CNOVon 07-04-2024 CNOV Office Visit (CHERRI DIANE MAI) IRIS THOMASON ([id number]) 1965 F Date Time Provider Department 07/04/24 2:15 PM LORENZO LORA CARD CHF DINH During your visit today, we recorded the following information about you: Pulse Blood pressure Weight Height 65/minute 149/83 88.6 kg 1.689 m Lorenzo Lora MD 08/12/2024 5:05 PM Signed [facility] [place] [facility] SECTION OF HEART FAILURE and CARDIAC TRANSPLANT MEDICINE OUTPATIENT VISIT DATE July 04, 2024 OUTPATIENT VISIT TYPE Consultation PRIMARY CARE PHYSICIAN: Gautam Dill [address] [place] [address] CHIEF COMPLAINT: Palpitations NURSING INTAKE (Patient?s concerns and/or recent hospitalizations/ER visits): Iris Thomason is a 59 y/o female from [place], [place] second opinion on pulmonary HTN Pt has history of pulmonary HTN, HTN, autonomic dysfunction, POTS, liv elise, tremors, and COVID-19. Since June last year, hasn't been feeling well: heart fluttering (worse when laying on left side), feeling weak, GI issues (did try taking omeprazole and Pepcid with no relief) January experienced 4 episode of needle pain on left side of chest. Was seen locally in [place], had EKG done that was abnormal. Wore a heart monitor and had a stress test done. Had echo done in May and was told she had pulmonary hypertension. Has made recent diet changes and has started exercising which has been helping Exercise: walking around track - gets very short of breath, fatigued, and feels week. Walks 5-10 minute intervals on treadmill. HF Nursing Assessment: Interim Hospitalizations and/or ER visits: no Chest Pain: yes, needle pain. And squeezing pain in middle of chest that will cause her to cough (happens at rest) Skipping or irregular heartbeats: yes, has gotten worse. Shortness of breath at rest: yes, when laying on back Shortness of breath with activity: yes, happening more often Cough: yes Waking up in the middle of the night gasping for air: no, (did have sleep study done, does not have sleep apnea) Lightheadedness or dizziness: some Feeling like you are going to pass out: yes Actually passing out: no Poor energy level: yes, weakness. Unintentional weight gain: no Unintentional weight loss: no Swelling in your legs,feet, abdomen: no Filling up quickly when you eat: no HISTORY OF PRESENT ILLNESS: We had the pleasure of seeing Ms Thomason today in our cardiology clinic. She is a pleasant 59 yo woman with history of pulmonary hypertension, autonomic dysfunction, and graves disease. She is presenting for palpitations and pulmonary hypertension. Palpitations moderate in intensity, worse when laying, without relieving factors, no associated symptoms, coming several times per week. Prior 3 day holter with nsVT ? Otherwise, she endorses NYHA class II/III exertional SOB with over exertion, without GERARDO, presyncope, or syncope. Had some chest tingling and stress testing reportedly negative. TTE with mild PH. 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 Blanton: hysteroscopy, polypectomy - LAPS ABD PRTMANDOMENTUM DX W/WO SPEC BR/WA SPX 1996 endometriosis - PAST SURGICAL HISTORY OF reval implant for heart- inserted and removed - PAST SURGICAL HISTORY OF 1995 dANAr - SKIN BX, 1 LESION facial - TOOTH ROOT REMOVAL wisdom teethe removed SOCIAL HISTORY Social History Tobacco Use - Smoking status: Never - Smokeless tobacco: Never Substance Use Topics - Alcohol use: No - Drug use: No FAMILY HISTORY Problem Relation Age of Onset - Heart Mother - Arrythmias Mother afib - other (pulmonary embolism [Other]) Mother - Prostate Cancer Father - Arrythmias Maternal Grandmother afib - Heart Failure Maternal Grandmother - Sudden Cardiac Paternal Grandfather - Heart Attack Paternal Grandfather - Arrythmias Maternal Aunt afib ALLERGIES: ALLERGIES Allergen Reactions - Contrast Dye Other: See Comments chest pain , increased HR, increased BP - Azithromycin GI Upset Severe diarrhea - Budesonide-Formoter* Other: See Comments - Celecoxib Other: See Comments Other Reaction(s) (more content not included)... Normal [facility] CREATINE KINASE/CKon 025 CK [Catalytic activity/Vol] 74 U/L 42 - 196 U/L [facility] Cholesterol in LDL Calc [Mas s/Vol]on 07-04-2024 Cholesterol in LDL [Mass/Vol] Cholesterol in LDL [Mass/volume] in Serum or Plasma by calculation High <100 [facility] Comment on above: <100 mg/dL, Optimal 100-129 mg/dL, Near optimal/above optimal 130-159 mg/dL, Borderline high 160-189 mg/dL, High>189 mg/dL, Very highSecondary prevention optimal LDL Cholesterol levels are recommended to be < 70 mg/dL Cholesterol in VLDL Calc [Ma ss/Vol]on 07-04-2024 Cholesterol in VLDL [Mass/Vol] Cholesterol in VLDL [Mass/volume] in Serum or Plasma by calculation <30 [facility] Comprehensive metabolic 2000 panelon 07-04-2024 Albumin [Mass/Vol] 4.5 g/dL Normal 3.9-4.9 [facility] Comment on above: Order Comment: Speci men Type: BLOOD SPECIMENOrdering Facility: [facility] Address: [address] [place] [address] Performed By: #### 2 4323-8, 3016-3, 00584-7, 15361-8 ####[facility] LABIA [id number] [place] [address] [place] [facility] ALP [Catalytic activity/Vol] 99 U/L Normal 34-123 [facility] Comment on above: Order Comment: Speci men Type: BLOOD SPECIMENOrdering Facility: [facility] Address: [address] [place] [address] Performed By: #### 2 4323-8, 3016-3, 72627-9, 90649-5 ####[facility] LABCLIA [id number] [address] [place] [address] [place] ALT [Catalytic activity/Vol] 26 U/L Normal 7-38 [facility] Comment on above: Order Comment: Speci men Type: BLOOD SPECIMENOrdering Facility: [facility] Address: [address] [place] [address] Performed By: #### 2 4323-8, 3016-3, 27405-0, 96284-7 ####[facility] LABCLIA [id number] [place] [address] [place] Anion gap [Moles/Vol] 14 mmol/L Normal 8-15 [facility] Comment on above: Order Comment: Speci men Type: BLOOD SPECIMENOrdering Facility: [facility] Address: [address] [place] [address] Performed By: #### 2 4323-8, 3016-3, 55356-1, 19000-2 ####[facility] LABCLIA [id number] [place] [address] [place] AST [Catalytic activity/Vol] 33 U/L Normal 13-35 [facility] Comment on above: Order Comment: Speci men Type: BLOOD SPECIMENOrdering Facility: [facility] Address: [address] [place] [address] Performed By: #### 2 4323-8, 3016-3, 01478-2, 04935-0 ####[facility] LABCLIA [id number] [place] [address] [place] Bilirubin [Mass/Vol] 0.3 mg/dL Normal 0.2-1.3 [facility] Comment on above: Order Comment: Speci men Type: BLOOD SPECIMENOrdering Facility: [facility] Address: [address] [place] [address] Performed By: #### 2 4323-8, 3016-3, 41493-9, 00890-5 ####[facility] LABCLIA [id number] [place] [address] [place] Calcium [Mass/Vol] 10.0 mg/dL Normal 8.5-10.2 [facility] Comment on above: Order Comment: Speci men Type: BLOOD SPECIMENOrdering Facility: [facility] Address: [address] [place] [address] Performed By: #### 2 4323-8, 3016-3, 79874-1, 63452-4 ####[facility] LABCLIA [id number] [place] [id number] [place] Chloride [Moles/Vol] 108 mmol/L High 98-107 [facility] Comment on above: Order Comment: Speci men Type: BLOOD SPECIMENOrdering Facility: [facility] Address: [address] [place] [address] Performed By: #### 2 4323-8, 3016-3, 07706-0, 98881-6 ####[facility] LABIA [id number] [place] [address] [place] CO2 [Moles/Vol] 22 mmol/L Normal 22-30 [facility] Comment on above: Order Comment: Speci men Type: BLOOD SPECIMENOrdering Facility: [facility] Address: [address] [place] [address] Performed By: #### 2 4323-8, 3016-3, 81242-0, 61994-2 ####[facility] LABIA [id number] [place] [address] [place] Creatinine [Mass/Vol] 0.92 mg/dL Normal 0.58-0.96 [facility] Comment on above: Order Comment: Speci men Type: BLOOD SPECIMENOrdering Facility: [facility] Address: [address] [place] [address] Performed By: #### 2 4323-8, 3016-3, 70310-3, 02605-9 ####[facility] LABCLIA [id number] [place] [id number] [place] Creatinine and Glomerular filtration rate.predicted panel (S/P/Bld) 72 mL/min/1.73m??? Normal >=60 [facility] Comment on above: Order Comment: James ramírez Type: BLOOD SPECIMENOrdering Facility: [facility] Address: [address] [place] [address] Result Comment: Angelika mated Glomerular Filtration Rate (eGFR) is calculated using the 2020 CKD-EPI creatinine equation. This equation utilizes serum creatinine, sex, and age as parameters. The creatinine assay has traceable calibration to isotope dilution-mass spectrometry. Refer to KDIGO guidelines for clinical interpretation. In patients with unstable renal function, e.g. those with acute kidney injury, the eGFR may not accurately reflect actual GFR. Performed By: #### 2 4323-8, 3016-3, 59342-9, 45592-9 ####[facility] LABCLIA [id number] [address] [address] [place] Glucose [Mass/Vol] 85 mg/dL Normal 74-99 [facility] Comment on above: Order Comment: James ramírez Type: BLOOD SPECIMENOrdering Facility: [facility] Address: [address] [place] [address] Result Comment: The [place] Diabetes Association (ADA) provides guidance for cutoff [...] Standards of Medical Care in Diabetes 2016, [place] [employer]. Diabetes Care. 2016.39(Suppl 1). Performed By: #### 2 4323-8, 3016-3, 20014-6, 85326-2 ####[facility] LABCLIA [id number] [address] [address] [place] Potassium [Moles/Vol] 5.8 mmol/L High 3.7-5.1 [facility] Comment on above: Order Comment: Speci men Type: BLOOD SPECIMENOrdering Facility: [facility] Address: [address] [place] [address] Performed By: #### 2 4323-8, 3016-3, 26623-6, 71159-7 ####[facility] LABCLIA [id number] [address], [facility] [place] Protein [Mass/Vol] 7.0 g/dL Normal 6.3-8.0 [facility] Comment on above: Order Comment: Speci men Type: BLOOD SPECIMENOrdering Facility: [facility] Address: [address] [place] [address] Performed By: #### 2 4323-8, 3016-3, 98143-6, 19460-3 ####[facility] LABCLIA [id number] [place] [id number] [place] Sodium [Moles/Vol] 144 mmol/L Normal 136-144 [facility] Comment on above: Order Comment: Speci men Type: BLOOD SPECIMENOrdering Facility: [facility] Address: [address] [place] [address] Performed By: #### 2 4323-8, 3016-3, 69778-5, 03230-8 ####[facility] LABCLIA [id number] [address], [facility] [place] Urea nitrogen [Mass/Vol] 17 mg/dL Normal 7-21 [facility] Comment on above: Order Comment: Speci men Type: BLOOD SPECIMENOrdering Facility: [facility] Address: [address] [place] [address] Performed By: #### 2 4323-8, 3016-3, 62773-9, 42851-7 ####[facility] LABCLIA [id number] [facility] [address] [place] [address] [place] ECG COMPLETEon 02-26-2025 ECG COMPLETE Ventricular Rate : 6 6 BPM Atrial Rate : 66 BPM P-R Interval : 120 ms QRS Duration : 86 ms Q-T Interval : 398 ms QTC Calculation(Bazett) : 417 ms Calculated P [place] : 23 degrees Calculated R [place] : 52 degrees Calculated T [place] : 34 degrees NORMAL SINUS RHYTHM ANTERIOR T WAVE ABNORMALITY ABNORMAL ECG Confirmed by SIMBA ACKERMAN MD (22) on 07/20/2024 2:29:40 PM NAME : IRIS THOMASON PID : [id number] : 1965 Gender : Female Race : ORD : [id number] Procedure Date : Jul 04 2024 13:24:17 Edit Date : Jul 20 2024 14:31:15 Diagnosis: NORMAL SINUS RHYTHM ANTERIOR T WAVE ABNORMALITY ABNORMAL ECG Confirmed by SIMBA ACKERMAN MD () on 07/20/2024 2:29:40 PM Test Reason : Location : [address] [place] [address] Overread By : SIMBA ACKERMAN MD Edited By : SIMBA ACKERMAN MD Referred By : , Acquired by : SHE APODACA Normal [facility] Eosinophils/100 WBC Auto (Bl d)on 07-04-2024 Eosinophils/100 WBC (Bld) Automated eosinophil % [facility] Erythrocyte distribution wid th Auto (RBC) [Ratio]on 07-04-2024 Erythrocyte distribution width (RBC) [Ratio] Erythrocyte distribution width [Ratio] by Automated count 11.5-15.0 [facility] HIGH SENSITIVITY TROPONIN To n 07-04-2024 Interpretation and review of laboratory results Abnormal [facility] Troponin T.cardiac High sensitivity method [Mass/Vol] 26 ng/L High NINF - 12 ng/L [facility] Troponin T.cardiac High sensitivity method [Mass/Vol] 26 ng/L High <12 [facility] Comment on above: Order Comment: Speci men Type: BLOOD SPECIMENOrdering Facility: [facility] Address: [address] [place] [address] Performed By: #### H STNT, 2157-6 ####[facility] LABCLIA [id number] [address] Hematocrit Auto (Bld) [Volum e fraction]on 07-04-2024 Hematocrit (Bld) [Volume fraction] Hematocrit [Volume Fraction] of Blood by Automated count 36.0-46.0 [facility] Hemoglobin [Mass/volume] in Bloodon 07-04-2024 Hemoglobin (Bld) [Mass/Vol] Hemoglobin [Mass/volume] in Blood 11.5-15.5 [facility] IMMUNOFIXATION SCREEN, SERUM on 07-04-2024 MPA RESULT No M protein is identified. Normal No M protein is identified. [facility] Comment on above: Order Comment: Speci men Type: BLOOD SPECIMENOrdering Facility: [facility] Address: [address] [place] [address] Performed By: #### I FES ####[facility] [facility] [id number] [address] [place] STAFF REVIEW (MPA) Reviewed by Jay Jay Rain MD, Ph.D ([id number]) Normal [facility] Comment on above: Order Comment: Speci men Type: BLOOD SPECIMENOrdering Facility: [facility] Address: [address] [place] [address] Performed By: #### I FES ####[facility] [id number] [address] [place] Immunoglobulin light chains. kappa.free [Mass/volume] in Serumon 07-04-2024 Immunoglobulin light chains.kappa.free (S) [Mass/Vol] Immunoglobulin light chains.kappa.free [Mass/volume] in Serum 3.3-19.4 [facility] Comment on above: Rarely, increased se rum free light chains levels may not be detected or accurately quantified due to prozone phenomenon or in high viscosity samples using this immunoturbidimetric assay. Correlation with other laboratory results and clinical findings is recommended. The [place] Free Light Chain was performed using the Binding Site Optilite immunoturbidimetric method. Result obtained with different assay methods or kits cannot be used interchangeably. Immunoglobulin light chains. kappa.free/Immunoglobulin light chains.lambda.free [Dre 07-04-2024 Immunoglobulin light chains.kappa.free/Immun oglobulin light chains.lambda.free (S) [Mass ratio] Immunoglobulin light chains.kappa.free/Imm unoglobulin light chains.lambda.free [Mass 0.26-1.65 [facility] Immunoglobulin light chains. lambda.free [Mass/volume] in Serum or Plasmaon 07-04-2024 Immunoglobulin light chains.lambda.free [Mass/Vol] Immunoglobulin light chains.lambda.free [Mass/volume] in Serum or Plasma 5.7-26.3 [facility] Comment on above: Rarely, increased se rum free light chains levels may not be detected or accurately quantified due to prozone phenomenon or in high viscosity samples using this immunoturbidimetric assay. Correlation with other laboratory results and clinical findings is recommended. The [place] Free Light Chain was performed using the Binding Site Optilite immunoturbidimetric method. Result obtained with different assay methods or kits cannot be used interchangeably. KAPPA/CALDERON,FREE,SERon 2024 Immunoglobulin light chains.kappa.free (S) [Mass/Vol] 13.1 mg/L Normal 3.3-19.4 [facility] Comment on above: Order Comment: Speci men Type: BLOOD SPECIMENOrdering Facility: [facility] Address: [address] [place] [address] Result Comment: Rare ly, increased serum free light chains levels may not be detected or accurately quantified due to prozone phenomenon or in high viscosity samples using this immunoturbidimetric assay. Correlation with other laboratory results and clinical findings is recommended. The [place] Free Light Chain was performed using the Binding Site Optilite immunoturbidimetric method. Result obtained with different assay methods or kits cannot be used interchangeably. Performed By: #### K LFRS ####[facility] LABCLIA [id number] [place] [address] [place] Immunoglobulin light chains.kappa/Immunoglob ulin light chains.lambda (S) [Mass ratio] 1.54 Normal 0.26-1.65 [facility] Comment on above: Order Comment: Speci men Type: BLOOD SPECIMENOrdering Facility: [facility] Address: [address] [place] [address] Performed By: #### K LFRS ####[facility] LABCLIA [id number] [place] [address] [place] Immunoglobulin light chains.lambda.free [Mass/Vol] 8.5 mg/L Normal 5.7-26.3 [facility] Comment on above: Order Comment: Speci men Type: BLOOD SPECIMENOrdering Facility: [facility] Address: [address] [place] [address] Result Comment: Rare ly, increased serum free light chains levels may not be detected or accurately quantified due to prozone phenomenon or in high viscosity samples using this immunoturbidimetric assay. Correlation with other laboratory results and clinical findings is recommended. The [place] Free Light Chain was performed using the Binding Site Optilite immunoturbidimetric method. Result obtained with different assay methods or kits cannot be used interchangeably. Performed By: #### K LFRS ####[facility] LABCLIA [id number] [place] [address] [place] Laboratory - Chemistry and C hemistry - challengeon 07-04-2024 Albumin [Mass/Vol] 4.5 g/dL 3.9-4.9 [facility] ALP [Catalytic activity/Vol] 99 U/L 34-123 [facility] ALT [Catalytic activity/Vol] 26 U/L 7-38 [facility] AST [Catalytic activity/Vol] 33 U/L 13-35 [facility] Bilirubin [Mass/Vol] 0.3 mg/dL 0.2-1.3 [facility] Calcium [Mass/Vol] 10.0 mg/dL 8.5-10.2 [facility] Chloride [Moles/Vol] 108 mmol/L High 98-107 [facility] Cholesterol [Mass/Vol] 217 mg/dL High <200 [facility] Comment on above: <200 mg/dL, Desirabl e 200-239 mg/dL, Borderline high>239 mg/dL, High Cholesterol in HDL [Mass/Vol] 71 mg/dL >39 [facility] Comment on above: 40-59 mg/dL, Accepta ble>59 mg/dL, High: Negative risk factor for coronary heart disease<40 mg/dL, Low: Positive risk factor for coronary heart disease CK [Catalytic activity/Vol] 74 U/L 42-196 [facility] CO2 [Moles/Vol] 22 mmol/L 22-30 [facility] Creatinine [Mass/Vol] 0.92 mg/dL 0.58-0.96 [facility] Glucose [Mass/Vol] 85 mg/dL 74-99 [facility] Comment on above: The [place] Diabete s Association (ADA) provides guidance for cutoff values for fasting glucose and random glucose. The ADA defines fasting as no caloric intake for at least 8 hours. Fasting plasma glucose results between 100 to 125 mg/dL indicate increased risk for diabetes (prediabetes).Fasting plasma glucose results greater than or equal to 126 mg/dL meet the criteria for diagnosis of diabetes. In the absence of unequivocal hyperglycemia, results should be confirmed by repeat testing. In a patient with classic symptoms of hyperglycemia or hyperglycemic crisis, random plasma glucose results greater than or equal to 200 mg/dL meet the criteria for diagnosis of diabetes.Reference: Standards of Medical Care in Diabetes 2016, [place] Diabetes Association. Diabetes Care. 2016.39(Suppl 1). Potassium [Moles/Vol] 5.8 mmol/L High 3.7-5.1 [facility] Sodium [Moles/Vol] 144 mmol/L 136-144 [facility] Triglyceride [Mass/Vol] 119 mg/dL <150 [facility] Comment on above: <150 mg/dL, Normal 1 50-199 mg/dL, Borderline high 200-499 mg/dL, High>499 mg/dL, Very high TSH Qn 1.460 m[IU]/L 0.270-4.200 [facility] Urea nitrogen [Mass/Vol] 17 mg/dL 7-21 [facility] Laboratory - Hematology and Cell countson 07-04-2024 Eosinophils (Bld) [#/Vol] 0.29 10*3/uL <0.46 [facility] Immature granulocytes (Bld) [#/Vol] 0.04 10*3/uL <0.10 [facility] Immature granulocytes/100 WBC (Bld) 0.8 % [facility] Leukocytes [#/volume] correc daron for nucleated erythrocytes in Blood by Automated counon 07-04-2024 WBC corrected for nucl RBC Auto (Bld) [#/Vol] Leukocytes [#/volume] corrected for nucleated erythrocytes in Blood by Automated coun 3.70-11.00 [facility] Lipid 1996 panelon Cholesterol [Mass/Vol] 217 mg/dL High <200 [facility] Comment on above: Order Comment: Speci men Type: BLOOD SPECIMENOrdering Facility: [facility] Address: [address] [place] [address] Result Comment: <200 mg/dL, Desirable 200-239 mg/dL, Borderline high >239 mg/dL, High Performed By: #### 2 4323-8, 3016-3, 17217-4, 29281-2 ####[facility] LABCLIA [id number] [address] [address] [place] Cholesterol in HDL [Mass/Vol] 71 mg/dL Normal >39 [facility] Comment on above: Order Comment: James men Type: BLOOD SPECIMENOrdering Facility: [facility] Address: [address] [place] [address] Result Comment: 40-5 9 mg/dL, Acceptable >59 mg/dL, High: Negative risk factor for coronary heart disease <40 mg/dL, Low: Positive risk factor for coronary heart disease Performed By: #### 2 4323-8, 3016-3, 32245-6, 27779-2 ####[facility] LABCLIA [id number] [address] [place] Cholesterol in LDL [Mass/Vol] 122 mg/dL High <100 [facility] Comment on above: Order Comment: Joanai men Type: BLOOD SPECIMENOrdering Facility: [facility] Address: [address] [place] [address] Result Comment: <100 mg/dL, Optimal 100-129 mg/dL, Near optimal/above optimal 130-159 mg/dL, Borderline high 160-189 mg/dL, High >189 mg/dL, Very high Secondary prevention optimal LDL Cholesterol levels are recommended to be < 70 mg/dL Performed By: #### 2 4323-8, 3016-3, 37435-5, 82701-3 ####[facility] LABIA [id number] [place] [id number] [place] Cholesterol in LDL/Cholesterol in HDL [Mass ratio] 1.72 {ratio} Normal <2.54 [facility] Comment on above: Order Comment: Speci men Type: BLOOD SPECIMENOrdering Facility: [facility] Address: [address] [place] [address] Result Comment: Refe rence: 1. National Cholesterol Education Program ATP III Guideline At-A-Glance Quick Desk Reference: National Heart, Lung, and Blood [place]. National Institutes of Health. 2001: NIH Publication No. 01-3305. 2. An International Atherosclerosis Society position paper: global recommendations for the management of dyslipidemia: executive summary, Atherosclerosis. 2014: 232(2):410-413. Performed By: #### 2 4323-8, 3016-3, 61164-0, 37364-0 ####[facility] [id number] [place] [id number] [place] Cholesterol in VLDL [Mass/Vol] 24 mg/dL Normal <30 [facility] Comment on above: Order Comment: Speci men Type: BLOOD SPECIMENOrdering Facility: [facility] Address: [address] [place] [address] Performed By: #### 2 4323-8, 3016-3, 81810-0, 11996-9 ####[facility] LABIA [id number] [place] [id number] [place] Cholesterol non HDL [Mass/Vol] 146 mg/dL High <130 [facility] Comment on above: Order Comment: Speci men Type: BLOOD SPECIMENOrdering Facility: [facility] Address: [address] [place] [address] Result Comment: <130 mg/dL, Optimal 130-159 mg/dL, Near optimal/above optimal 160-189 mg/dL, Borderline high 190-219 mg/dL, High >219 mg/dL, Very high Secondary prevention optimal non HDL Cholesterol levels are recommended to be <100 mg/dL Performed By: #### 2 4323-8, 3016-3, 15935-0, 53624-3 ####[facility] LABCLIA [id number] [facility] [place] [id number] [address] [facility] Cholesterol.total/Dorinda sterol in HDL [Mass ratio] 3.06 {ratio} Normal <5.10 [facility] Comment on above: Order Comment: Speci men Type: BLOOD SPECIMENOrdering Facility: [facility] Address: [address] [place] [address] Performed By: #### 2 4323-8, 6-3, 72129-4, 06678-2 ####[facility] LABCLIA [id number] [address] [place] [address] [place] [facility] FASTING TIME 3.5 hrs Normal [facility] Comment on above: Order Comment: Speci men Type: BLOOD SPECIMENOrdering Facility: [facility] Address: [address] [place] [address] Performed By: #### 2 4323-8, 6-3, 62869-2, 15482-8 ####[facility] LABCLIA [id number] [address] [place] [address] [place] [facility] Triglyceride [Mass/Vol] 119 mg/dL Normal <150 [facility] Comment on above: Order Comment: Speci men Type: BLOOD SPECIMENOrdering Facility: [facility] Address: [address] [place], [place] [id number] Result Comment: <150 mg/dL, Normal 150-199 mg/dL, Borderline high 200-499 mg/dL, High >499 mg/dL, Very high Performed By: #### 2 4323-8, 6-3, 56230-9, 92963-0 ####[facility] LABCLIA [id number] [facility] [id number] [address] [place] Lymphocytes Auto (Bld) [#/Vo l]on 07-04-2024 Lymphocytes (Bld) [#/Vol] Lymphocytes [#/volume] in Blood by Automated count 1.00-4.00 [facility] Lymphocytes/100 WBC Auto (Bl d)on 07-04-2024 Lymphocytes/100 WBC (Bld) Lymphocytes/100 leukocytes in Blood by Automated count [facility] MCH Auto (RBC) [Entitic mass ]on 07-04-2024 MCH (RBC) [Entitic mass] MCH [Entitic mass] by Automated count 26.0-34.0 [facility] MCHC Auto (RBC) [Mass/Vol]on 07-04-2024 MCHC (RBC) [Mass/Vol] MCHC [Mass/volume] by Automated count 30.5-36.0 [facility] MCV Auto (RBC) [Entitic vol] on 07-04-2024 MCV (RBC) [Entitic vol] MCV [Entitic vol ume] by Automated count 80.0-100.0 [facility] Monocytes Auto (Bld) [#/Vol] on 07-04-2024 Monocytes (Bld) [#/Vol] Automated blood monocyte count <0.87 [facility] Monocytes/100 WBC Auto (Bld) on 07-04-2024 Monocytes/100 WBC (Bld) Automated monocyte % [facility] NT-proBNP SerPl-mCncon 07-04 Natriuretic peptide.B prohormone N-Terminal [Mass/Vol] 85 pg/mL Normal <125 [facility] Comment on above: Order Comment: Speci men Type: BLOOD SPECIMENOrdering Facility: [facility] Address: [address] [place] [address] Performed By: #### 2 4323-8, 3016-3, 16272-8, 42357-0 ####[facility] LABCLIA [id number] [place] [address] [place] Natriuretic peptide.B prohor flor N-Terminal [Mass/volume] in Serum or Plasmaon 07-04-2024 Natriuretic peptide.B prohormone N-Terminal [Mass/Vol] Natriuretic peptide.B prohormone N-Terminal [Mass/volume] in Serum or Plasma <125 [facility] Neutrophils Auto (Bld) [#/Vo l]on 07-04-2024 Neutrophils (Bld) [#/Vol] Neutrophils [#/volume] in Blood by Automated count 1.45-7.50 [facility] Neutrophils/100 WBC Auto (Bl d)on 07-04-2024 Neutrophils/100 WBC (Bld) Automated neutrophil % [facility] No Panel Informationon 07-04 [facility] Estimated GFR (CKD-EPI) 72 mL/min/1.73m??? >=60 [facility] Comment on above: Estimated Glomerular Filtration Rate (eGFR) is calculated using the 2020 CKD-EPI creatinine equation. This equation utilizes serum creatinine, sex, and age as parameters. The creatinine assay has traceable calibration to isotope dilution-mass spectrometry. Refer to KDIGO guidelines for clinical interpretation. In patients with unstable renal function, e.g. those with acute kidney injury, the eGFR may not accurately reflect actual GFR. Fasting Status 3.5 hrs [facility] Leuk/Lymph Sign Pathologist (Misc) Reviewed by Jay Jay Rain MD, Ph.D ([id number]) [facility] Non-HDL Cholesterol 146 mg/dL High <130 [facility] Comment on above: <130 mg/dL, Optimal 130-159 mg/dL, Near optimal/above optimal 160-189 mg/dL, Borderline high 190-219 mg/dL, High>219 mg/dL, Very highSecondary prevention optimal non HDL Cholesterol levels are recommended to be <100 mg/dL Serum Immunofixation No M protein is identified. No M protein is identified. [facility] Troponin T Hi Sens Cardiac Interven 26 ng/L High <12 [facility] Nucleated RBC Auto (Bld) [#/ Vol]on 07-04-2024 Nucleated RBC (Bld) [#/Vol] Nucleated erythrocytes [#/volume] in Blood by Automated count <0.01 [facility] Nucleated erythrocytes [Pres ence] in Blood by Automated counton 07-04-2024 Nucleated RBC Auto Ql (Bld) Nucleated erythrocytes [Presence] in Blood by Automated count [facility] Platelet mean volume Auto (B ld) [Entitic vol]on 07-04-2024 Platelet mean volume (Bld) [Entitic vol] Platelet mean volume [Entitic volume] in Blood by Automated count 9.0-12.7 [facility] Platelets Auto (Bld) [#/Vol] on 07-04-2024 Platelets (Bld) [#/Vol] Platelets [#/vol ume] in Blood by Automated count 150-400 [facility] Protein [Mass/volume] in Ser um or Plasmaon 07-04-2024 Protein [Mass/Vol] Protein [Mass/volume ] in Serum or Plasma 6.3-8.0 [facility] RBC Auto (Bld) [#/Vol]on RBC (Bld) [#/Vol] Erythrocytes [#/volume] in Blood by Automated count 3.90-5.20 [facility] Serum or plasma anion gap de terminationon 07-04-2024 Anion gap [Moles/Vol] Serum or plasma an ion gap determination 8-15 [facility] Serum or plasma total choles terol/high density lipoprotein (HDL) cholesterol mass ugo 07-04-2024 Cholesterol.total/Dorinda sterol in HDL [Mass ratio] Serum or plasma total cholesterol/high density lipoprotein (HDL) cholesterol mass rat <5.10 [facility] TSH SerPl-aCncon 07-04-2024 TSH Qn 1.460 m[IU]/L Normal 0.270-4.200 [facility] Comment on above: Order Comment: Speci men Type: BLOOD SPECIMENOrdering Facility: [facility] Address: [address] [place] [address] Performed By: #### 2 4323-8, 3016-3, 72050-6, 37820-1 ####[facility] LABCLIA [id number] [place] [address] [place] Documentationon 06-19-2024 Documentation [id number] Iris Thomason 1965 F Date Provider Department Center 06/19/2024 [id number], IRIS [facility] HEART UT HeartVAS No family history on file Normal [facility] 36on 06-15-2024 36 Left VM msg for pt t o return call to discuss results of PFT. Not sure if she is referring to PFT or sleep study results but we only have sleep study. Where was PFT done? Called [facility] and they will fax PFT results Scanned into [employer] Normal [facility] CNPZahira 06-15-2024 CNPN Telephone (CARD CHF DINH) IRIS THOMASON ([id number]) 1965 F Date Time Provider Department 06/15/24 LORENZO LORA CARD CHF DINH During your visit today, we recorded the following information about you: Rohini Day 06/15/2024 3:59 PM Signed Outside Echo report scanned into [employer] for review. Allergies As of Date: 06/15/2024 [...] Encounter Status:Closed by LORENZO LORA on 06/21/24 [facility] 36on 06-14-2024 36 Pt calling again requesting to know what you thought about her PFT results. Left same message 3 weeks ago [facility] Telephoneon 06-14-2024 Telephone [id number] Iris Thomason 1965 F Date Provider Department Center 06/14/2024 EDINSON CHONG [email or web address] CARD UT HeartVAS No family history on file [facility] Documentationon 05-26-2024 Documentation [id number] Iris Thomason 1965 F Date Provider Department Center 05/26/2024 [id number] BYRD [employer] CARD UT HeartVAS No family history on file [facility] 36on 05-22-2024 36 Patient called to notify us that her sleep study was completed last week at [place]. I contacted the facility to request the results, will send them over to us now for the provider to review. [facility] 29on 04-23-2024 29 Addended by: SYLVIA BARLOW on: 05/07/2024 03:25 PM Modules accepted: Orders [facility] 29 Addended by: IRIS SEQUEIRA on: 05/08/2024 10:50 AM Modules accepted: Orders [facility] 37on 04-23-2024 37 Decrease Nebivolol t o 1/2 of 5mg and see if less fatigue, and that your palpitations don't feel worse. When you have dental work, ask for the numbing agent with out adrenalin or epinephrine Do start to exercise on treadmill 5 mins twice per day and gradually increase to goal of 20 mins per day. More information after labs. [employer] gives you access to your chart and appointments. It is a great way to communicate with your provider, look at test results, renew prescriptions, schedule or cancel appointments and more. [facility] encourages you to sign up and get started with [employer]. --Please ask any of our staff for assistance --Go to [email or web address] and click sign up now. --on your cell phone download the rafael: [employer] for [facility] --Call [facility] IT help desk at [phone]. Kind regards, Iris Sequeira, [facility] Cardiovascular Medicine Contact me via Development Lead Sylvia Barrera [phone] Normal [facility] B-TYPE NATRIURETIC PEPTIDEon 04-23-2024 Natriuretic peptide B (Bld) [Mass/Vol] 95 pg/mL Normal 0-100 [facility] Comment on above: Performed By: #### L [id number] #### [facility] [address] [place] [address] CBCon 04-23-2024 Erythrocyte distribution width (RBC) [Ratio] 13.2 % Normal 11.5-15.0 [facility] Comment on above: Performed By: #### L [id number] #### [facility] [address] [place] [address] ERYTHROCYTE MEAN CORPUSCULAR HEMOGLOBIN CONCENTRATION (G/DL) BY AUTOMATED 32.9 g/dL Normal 32.0-35.0 [facility] Comment on above: Performed By: #### L [id number] #### [facility] [address] [place] [address] Hematocrit (Bld) [Volume fraction] 46.5 % Normal 36.0-48.0 [facility] Comment on above: Performed By: #### L [id number] #### [facility] [address] [place] [address] Hemoglobin (Bld) [Mass/Vol] 15.3 g/dL High 12.0-15.0 [facility] Comment on above: Performed By: #### L [id number] #### [facility] [address] [place] [address] MCH (RBC) [Entitic mass] 30.1 pg Normal 27.0-33.0 [facility] Comment on above: Performed By: #### L [id number] #### [facility] [address] [place] [address] MCV (RBC) [Entitic vol] 91.4 fL Normal 82.0-98.0 [facility] Comment on above: Performed By: #### L [id number] #### [facility] [address] [place] [address] PLATELETS (10*3/UL) IN BLOOD AUTOMATED COUNT 198 10*3/uL Normal 150-400 [facility] Comment on above: Performed By: #### L [id number] #### [facility] [address] [place] [address] RBC (Bld) [#/Vol] 5.09 10*6/uL High 3.80-5.00 [facility] Comment on above: Performed By: #### L [id number] #### [facility] [address] [place] [address] WBC (Bld) [#/Vol] 4.51 10*3/uL Normal 4.00-10.60 [facility] Comment on above: Performed By: #### L [id number] #### [facility] [address] [place] [address] COMPREHENSIVE METABOLIC PANE Vinny 04-23-2024 Albumin [Mass/Vol] 4.5 g/dL Normal 3.5-5.7 [facility] Comment on above: Performed By: #### L AB17 ####[facility] ([facility])[address] [place] [address] ALP [Catalytic activity/Vol] 91 U/L Normal 34-104 [facility] Comment on above: Performed By: #### L AB17 ####[facility] [place] [address] ALT [Catalytic activity/Vol] 17 U/L Normal 7-52 [facility] Comment on above: Performed By: #### L AB17 ####[facility] [place] [address] Anion gap [Moles/Vol] 10 mmol/L Normal 7-20 [facility] Comment on above: Performed By: #### L AB17 ####[facility] [place] [address] AST [Catalytic activity/Vol] 18 U/L Normal 13-39 [facility] Comment on above: Performed By: #### L AB17 ####[facility] [place] [address] Bilirubin [Mass/Vol] 0.5 mg/dL Normal 0.3-1.0 [facility] Comment on above: Performed By: #### L AB17 ####[facility] [place] [address] Calcium [Mass/Vol] 9.4 mg/dL Normal 8.6-10.3 [facility] Comment on above: Performed By: #### L [id number] ####[facility] [place] [address] Chloride [Moles/Vol] 108 mmol/L High 98-107 [facility] Comment on above: Performed By: #### L [id number] ####[facility] ([facility])[address] [place] [address] CO2 [Moles/Vol] 27 mmol/L Normal 21-31 [facility] Comment on above: Performed By: #### L [id number] ####[facility] [place] [address] Creatinine [Mass/Vol] 0.89 mg/dL Normal 0.60-1.20 [facility] Comment on above: Performed By: #### L AB17 ####[facility] [place] [address] GLOMERULAR FILTRATION RATE ML/MIN/1.73 SQ M.PREDICTED 74.6 mL/min/1.73m*2 Normal >60.0 [facility] Comment on above: Result Comment: [facility]???s estimated glomerular filtration rate (eGFR) will [...] of individuals. Performed By: #### L AB17 ####[facility] [place] [address] Glucose [Mass/Vol] 97 mg/dL Normal 70-100 [facility] Comment on above: Performed By: #### L [id number] ####[facility] [facility] [place] [address] Potassium [Moles/Vol] 4.2 mmol/L Normal 3.5-5.1 [facility] Comment on above: Performed By: #### L AB17 ####[facility] ([facility])[address] [place] [address] Protein [Mass/Vol] 6.9 g/dL Normal 6.0-8.3 [facility] Comment on above: Performed By: #### L [id number] ####[facility] ([facility])[address] [place] [address] Sodium [Moles/Vol] 141 mmol/L Normal 136-145 [facility] Comment on above: Performed By: #### L [id number] ####[facility] ([facility])[address] [place] [address] Urea nitrogen [Mass/Vol] 13 mg/dL Normal 7-25 [facility] Comment on above: Performed By: #### L [id number] ####[facility] [place] [address] UREA NITROGEN/CREATININE (MASS RATIO) IN SER/PLAS 14.6 Normal [facility] Comment on above: Performed By: #### L [id number] ####[facility] [place] [address] LIPID PANELon 04-23-2024 CHOL/HDL 2.7 mg/dL Normal [facility] Comment on above: Performed By: #### L [id number] #### [facility] [address] [place] [address] Cholesterol [Mass/Vol] 217 mg/dL High 120-200 [facility] on above: Performed By: #### L [id number] #### [facility] [address] [place] [address] Magnesium [Mass/Vol] 67 mg/dL Normal 40-149 [facility] Comment on above: Result Comment: TRIG LYCERIDE REFERENCE RANGE: 20 YEARS AND OLDER CARDIOVASCULAR RISK LESS THAN 150 mg/dL LOW RISK 150 TO 199 mg/dL BORDERLINE RISK 200 mg/dL AND GREATER HIGH RISK Performed By: #### L [id number] #### [facility] ([facility]) [address] [place] [address] Magnesium [Mass/Vol] 124 mg/dL Normal 0-160 [facility] Comment on above: Performed By: #### L [id number] #### [facility] [address] [place] [address] Magnesium [Mass/Vol] 80 mg/dL Normal 23-92 [facility] Comment on above: Performed By: #### L [id number] #### [facility] ([facility]) [address] [place] [address] NON HDL CHOL. (LDL+VLDL) 137 Normal [facility] Comment on above: Performed By: #### L [id number] #### [facility] [address] [place] [address] TOTAL VLDL-C 13 mg/dL Normal 0-40 [facility] Comment on above: Performed By: #### L [id number] #### [facility] [address] [place] [place] [address] Labon 04-23-2024 Lab [id number] Iris Thomason 1965 F Date Provider Department [place] 04/23/2024 2245-[facility] OPD LAB RESOURCE [facility] OPD HI Medical C No family history on file Normal [facility] MAGNESIUMon 04-23-2024 Magnesium [Mass/Vol] 2.1 mg/dL Normal 1.9-2.7 [facility] Comment on above: Performed By: #### L [id number] ####[facility] [place] [address] Office Visiton 04-23-2024 Follow-up visit [id number] Iris Thomason 1965 Provider Department [place] 04/23/2024 [id number], IRIS [facility] CARD HI HeartVAS No family history on file Level of Service:00779 ID OFFICE/OUTPATIENT ESTABLISHED MOD MDM 30 MIN Normal [facility] TSH3 REFLEX TO FT4on 024 THYROTROPIN (MIU/L) IN SER/PLAS BY DETECTION LIMIT <= 0.05 MIU/L 1.63 mIU/L Normal 0.34-5.60 [facility] Comment on above: Performed By: #### L [id number] ####[facility] ([facility] [place] [address] 36on 04-19-2024 36 [place] scanned the echo into the media for your review Normal [facility] 36 Pt calls for echocardiogram results. Normal [facility] Urine Cultureon 04-04-2024 Bacteria identified Cx Nom (U) No Growth 2 Days PERFORMED BY: [facility] [address] [facility] [place] [place] [address] [address]S REPAIR[address] LAURENT M.D. Normal [facility] Comment on above: Performed By: #### C UU #### [facility] [address] 36on 03-27-2024 36 Pt notified. Echo order faxed to [place] and mailed to pt [facility] 36 Monitor and stress test are in the media [facility] 36 Patient calls for he r cardiac nurse results and stress test results. She wore monitor for 4 days. I called Tom for the results. They will attach in media when available. Pt notified [facility] 36on 03-06-2024 36 Patient notified. Priscilla jimenez would like order faxed to her PCP and mailed to her home [facility] 36 ----- Message from Pietro Eller NP sent at 03/06/2024 12:52 PM EDT ----- Treadmill stress/ no imaging for EKG abnormal. Call patient ----- Message ----- From: Interface, Lab Results In Sent: 03/05/2024 5:53 PM EDT To: Pietro Eller NP [facility] 29on 03-05-2024 29 Addended by: JERONIMO AYALA on: 03/05/2024 03:34 PM Modules accepted: Orders [facility] Office Visiton 03-05-2024 Follow-up visit [id number] Iris Thomason 1965 F Date Provider Department Center 03/05/2024 PIETRO BESS [facility] CARD UT HeartVAS No family history on file Level of Service:03262 ID OFFICE/OUTPATIENT ESTABLISHED LOW MDM 20 MIN [facility] [place] esophaguson 02-13-2024 [place] esophagus [facility] Main [place] [address] [place] [id number] Fluoroscopy Report Signed Patient: Iris Thomason MR#: [id number] : 1965 Acct:[id number] Age/Sex: 59 / F ADM Date: 02/13/24 Loc: XD Room: Type: [facility] Attending Dr: Tina Morelos DO Copies to: [...] Heri Chavarria M.D.02/13/2024 10:42 AM Dictation Location: [place] [address] Transcribed By: [facility] 02/13/24 1042 Dictated By: Heri Chavarria DO 02/13/24 1039 Signed By: 02/13/24 1042 Normal [facility] BI MAMMOGRAM SCREENING TOMOS YNTHESIS BILATERALon 02-09-2024 BI MAMMOGRAM SCREENING TOMOSYNTHESIS BILATERAL [...] compression prn CNPNon 11-30-2023 CNPN Telephone (ENDOLN) DIANA THOMASONJENNIFER ([id number]) 1965 F Date Time Provider Department 11/30/23 MATTHEW HALL During your visit today, we recorded the following information about you: Leticia Millan 11/30/2023 1:45 PM Signed Iris is calling Matthew Hall MD today with concern regarding Patient Question and lab results. She is asking about labs that were sent over from [facility] in July. She states that the Thyroid AB was elevated and she wondered if anything should be done about this. Please review and advise. Patient has been identified by name and birthdate. Person calling: self Call patient at: at home [phone] (home) [phone] (cell) Was an appointment scheduled: No Closing statement: Results or non-symptom based questions: Thank you for calling [facility], your call will be returned within [...] Fully Assessed Reason for Visit: Patient Question [0377] Prescriptions as of 12/10/2023 - ibuprofen (MOTRIN) [...] Status:Closed by LETICIA MILLAN on 12/10/23 Normal [facility] CT abdomen pelvis wo conon 0 11-24-2023 CT abdomen pelvis wo [facility] [place] [address] [place] [address] CT Scan Report Signed Patient: Iris Thomason MR#: [id number] : 1965 Acct:[id number] Age/Sex: 58 / F ADM Date: 11/24/23 Loc: Room: Type: [facility] Attending Dr: Gautam Dill DO Copies to: [...] Heri Chavarria M.D.11/24/2023 12:11 PM Dictation Location: [place] [address] Transcribed By: [facility] 11/24/23 1211 Dictated By: Heri Chavarria DO 11/24/23 1208 Signed By: 11/24/23 1211 Normal [facility] US gall bladderon 11-24-2023 US gall bladder [facility] [place] [address] [place] [address] Ultrasound Report Signed Patient: Iris Thomason MR#: [id number] : 1965 Acct:[id number] Age/Sex: 58 / F ADM Date: 11/24/23 Loc: Room: Type: [facility] Attending Dr: Gautam Dill DO Ordering Provider: [...] Heri Chavarria M.D.11/24/2023 10:38 AM Dictation Location: [place] [address] Tech: Jenni Phoenix Transcribed By: JAMSHID 11/24/23 1038 Dictated By: Heri Chavarria DO 11/24/23 1037 Signed By: 11/24/23 1038 Normal [facility] CNOVon 11-16-2023 CNOV Office Visit (ENDOLN ) IRIS THOMASON ([id number]) 1965 F Date Time Provider Department 11/16/23 [...] THYROID FNA (POC) ENDO USE ONLY, 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 #:[id number] Prescriptions as of 11/16/2023 - ibuprofen (MOTRIN) 600 mg tablet Take 1 tablet by mouth every 6 hours as needed for Pain. Take with food. - gabapentin (NEURONTIN) 100 mg capsule (more content not included)... Normal [facility] CYTOLOGY NON-GYNon CASE REPORT Normal [facility] Comment on above: Order Comment: Speci men Type: SPECIMEN OBTAINED BY ASPIRATIONOrdering Facility: [facility] Address: [address] [place] [address] Result Comment: [facility] Cytology Report Case: [id number] Authorizing Provider: Lainey Lindsey MD, PhD Collected: 11/16/2023 04:06 PM Ordering Location: Endocrinology Received: 11/16/2023 04:19 PM Pathologist: Dick Sue MD Specimen: Thyroid, Right, Lobe Performed By: #### C YTONON ####[facility] LABCLIA [id number] [place] [address] [place] CLINICAL HISTORY Normal [facility] Comment on above: Order Comment: Speci men Type: SPECIMEN OBTAINED BY ASPIRATIONOrdering Facility: [facility] Address: [address] [place] [address] Result Comment: Mult iple thyroid nodules Afirma sample received Performed By: #### C YTONON ####[facility] LABCLIA [id number] [address] [place] FINAL DIAGNOSIS Normal [facility] Comment on above: Order Comment: Speci men Type: SPECIMEN OBTAINED BY ASPIRATIONOrdering Facility: [facility] Address: [address] [place] [address] Result Comment: A. T hyroid, Right Lobe, Fine Needle Aspirate: Benign. [place] follicular cells and abundant colloid. The following cell blocks were associated with this case: A1 Cell Block, Alcohol Fixed Performed By: #### C YTONON ####[facility] LABCLIA [id number] [address] STATES OF [facility] FINAL PERFORMING LAB Normal [facility] Comment on above: Order Comment: Speci men Type: SPECIMEN OBTAINED BY ASPIRATIONOrdering Facility: [facility] Address: [address] [place] [address] Result Comment: Tech nical component, building mechanic screening performed at [facility], [address] [place] [address] CLIA# [id number] Diagnostic interpretation performed at [facility], [address] [place] [address] CLIA# [id number] Proof Inspector: Baron Morley M.D. Performed By: #### C YTONON ####[facility] LABCLIA [id number] [place] [address] [place] GROSS DESCRIPTION Normal [facility] Comment on above: Order Comment: Speci men Type: SPECIMEN OBTAINED BY ASPIRATIONOrdering Facility: [facility] Address: [address] [place] [address] Result Comment: A. T hyroid, Right, Lobe 30 cc clear pink CytoLyt . ThinPrep and Cell Block prepared and 2 smears. Afirma sample received Performed By: #### C YTSTEVE ####[facility] LABCLIA [id number] [place] [address] [place] US THYROID FNA (POC) ENDO US E ONLYon 11-16-2023 [facility] CNPNon 11-07-2023 CNPN Telephone (EMQ) IRIS THOMASON ([id number]) 1965 F Date Time Provider Department 11/07/23 [...] calling: self Call patient at: at home [phone] (home) [phone] (cell) Was an appointment scheduled: No Closing statement: Results or non-symptom based questions: Thank you for calling [facility], your call will be returned within [...] blisters Date Reviewed: 03/22/2023 Reviewed by: Bekah Zaragoza MA - Fully Assessed Reason for Visit: [...] Status:Closed by GWEN MILLAN on 11/08/23 Normal [facility] Alanine aminotransferase [En zymatic activity/volume] in Serum or PlasmaOrdered By: Gautam Dill on 10-19-2023 ALT [Catalytic activity/Vol] 16 U/L Normal [facility] Comment on above: Performed By: #### C MP, TSH3, ESR, LIPID, CBC, T4F #### [address] Albumin [Mass/volume] in Ser um or Plasma by Bromocresol green (BCG) dye binding methoOrdered By: Gautam Dill on 10-19-2023 Albumin BCG dye [Mass/Vol] 4.4 g/dL 3.5-5.7 [facility] Alkaline phosphatase [Enzyma tic activity/volume] in Serum or PlasmaOrdered By: Gautam Dill on 10-19-2023 ALP [Catalytic activity/Vol] 89 U/L Normal 34-104 [facility] Comment on above: Performed By: #### C MP, TSH3, ESR, LIPID, CBC, T4F #### [facility] [address] Aspartate aminotransferase [ Enzymatic activity/volume] in Serum or PlasmaOrdered By: Gautam Dill on 10-19-2023 AST [Catalytic activity/Vol] 15 U/L Normal 13-39 [facility] Comment on above: Performed By: #### C MP, TSH3, ESR, LIPID, CBC, T4F #### [address] Automated basophil %Ordered By: Gautam Dill on 10-19-2023 Basophils/100 WBC (Bld) 1.0 % Normal . [facility] Comment on above: Performed By: #### C MP, TSH3, ESR, LIPID, CBC, T4F ####[address] Automated basophil countOrde red By: Gautam Dill on 10-19-2023 Basophils (Bld) [#/Vol] 0.0 10*3/uL Normal 0.0-0.2 [facility] Comment on above: Performed By: #### C MP, TSH3, ESR, LIPID, CBC, T4F ####[address] Automated blood monocyte cou ntOrdered By: Gautam Dill on 10-19-2023 Monocytes (Bld) [#/Vol] 0.3 10*3/uL Normal 0.0-0.8 [facility] Comment on above: Performed By: #### C MP, TSH3, ESR, LIPID, CBC, T4F ####[address] Automated eosinophil %Ordere d By: Gautam Dill on 10-19-2023 Eosinophils/100 WBC (Bld) 6.6 % Normal . [facility] Comment on above: Performed By: #### C MP, TSH3, ESR, LIPID, CBC, T4F ####[facility] Automated eosinophil countOr dered By: Gautam Dill on 10-19-2023 Eosinophils (Bld) [#/Vol] 0.3 10*3/uL Normal 0.0-0.45 [facility] Comment on above: Performed By: #### C MP, TSH3, ESR, LIPID, CBC, T4F ####[place] [address] [address] Automated monocyte %Ordered By: Gautam Dill on 10-19-2023 Monocytes/100 WBC (Bld) 6.7 % Normal . [facility] Comment on above: Performed By: #### C MP, TSH3, ESR, LIPID, CBC, T4F ####[place] [address] [address] Automated neutrophil %Ordere d By: Gautam Dill on 10-19-2023 Neutrophils/100 WBC (Bld) 49.7 % Normal . [facility] Comment on above: Performed By: #### C MP, TSH3, ESR, LIPID, CBC, T4F ####[facility] Bilirubin.total [Mass/volume ] in Serum or PlasmaOrdered By: Gautam Dill on 10-19-2023 Bilirubin [Mass/Vol] 0.5 mg/dL Normal 0.3-1.0 [facility] Comment on above: Performed By: #### C MP, TSH3, ESR, LIPID, CBC, T4F #### [facility] [address] Calcium [Mass/volume] in Ser um or PlasmaOrdered By: Gautam Dill on 10-19-2023 Calcium [Mass/Vol] 9.4 mg/dL Normal 8.6-10.3 [facility] Comment on above: Performed By: #### C MP, TSH3, ESR, LIPID, CBC, T4F #### [facility] [address] [place] [address] [place] Carbon dioxide, total [Moles /volume] in Serum or PlasmaOrdered By: Gautam Dill on 10-19-2023 CO2 [Moles/Vol] 28.0 mmol/L Normal 21.0-31.0 [facility] Comment on above: Performed By: #### C MP, TSH3, ESR, LIPID, CBC, T4F #### [facility] [address] [place] [address] [place] Chloride [Moles/volume] in S bonita or PlasmaOrdered By: Gautam Dill on 10-19-2023 Chloride [Moles/Vol] 107 mmol/L Normal 98-107 [facility] Comment on above: Performed By: #### C MP, TSH3, ESR, LIPID, CBC, T4F #### [facility] [address] [place] [id number] [place] Cholesterol [Mass/volume] in Serum or PlasmaOrdered By: Gautam Dill on 10-19-2023 Cholesterol [Mass/Vol] 220 mg/dL High 140-200 [facility] Comment on above: Chol less than 200 m g/dl low riskChol 201-239 mg/dl borderline riskChol 240 mg/dl and greater high risk Result Comment: Chol less than 200 mg/dl low risk Chol 201-239 mg/dl borderline risk Chol 240 mg/dl and greater high risk Performed By: #### C MP, TSH3, ESR, LIPID, CBC, T4F #### [facility] [address] [place] [id number] [place] Cholesterol in LDL Calc [Mas s/Vol]Ordered By: Gautam Dill on 10-19-2023 Cholesterol in LDL [Mass/Vol] 130 mg/dL High 0-100 [facility] Comment on above: LDL ATP III CLASSIFI CATIONLDL less than 100 mg/dL OptimalLDL 100-129 mg/dL Near or above optimalLDL 130-159 mg/dL Borderline highLDL 160-189 mg/dL HighLDL greater than 189 mg/dL Very high Cholesterol in VLDL Calc [Ma ss/Vol]Ordered By: Gautam Dill on 10-19-2023 Cholesterol in VLDL [Mass/Vol] 17 mg/dL [facility] Complete Blood Count Auto Di ffon 10-19-2023 Mean Corpuscular HGB Conc 33.7 g/dL Normal 32.0-35.0 [facility] Comment on above: Performed By: #### C MP, TSH3, ESR, LIPID, CBC, T4F ####[facility] NRBC% 0.2 /100{WBC} Normal 0-0.5 [facility] Comment on above: Performed By: #### C MP, TSH3, ESR, LIPID, CBC, T4F ####[place] [address] [address] Comprehensive Metabolic Pane vinny 10-19-2023 Albumin [Mass/Vol] 4.4 g/dL Normal 3.5-5.7 [facility] Comment on above: Performed By: #### C MP, TSH3, ESR, LIPID, CBC, T4F #### [facility] [address] [place] [address] GFR/1.73 sq M.predicted MDRD (S/P/Bld) [Vol rate/Area] mL/min/{1.73_m2} Normal [facility] Comment on above: Performed By: #### C MP, TSH3, ESR, LIPID, CBC, T4F #### [facility] [address] [place] [address] Creatinine [Mass/volume] in Serum or PlasmaOrdered By: Gautam Dill on 10-19-2023 Creatinine [Mass/Vol] 0.82 mg/dL Normal 0.60-1.20 [facility] Comment on above: Performed By: #### C MP, TSH3, ESR, LIPID, CBC, T4F #### [facility] [address] [place] [address] Erythrocyte Sedimentation Ra jessica 10-19-2023 ESR (Bld) [Velocity] 14 mm/h Normal 0-29 [facility] Comment on above: Result Comment: PERF ORMED BY: [address] [place] [address] PATHOLOGIST TELECOMMUNICATIONS REPAIRER LUCRETIA SHANKAR M.D. Performed By: #### C MP, TSH3, ESR, LIPID, CBC, T4F ####[facility] Erythrocyte distribution wid th [Ratio] by Automated countOrdered By: Gautam Dill on 10-19-2023 Erythrocyte distribution width (RBC) [Ratio] 13.8 % Normal 11.9-15.3 [facility] Comment on above: Performed By: #### C MP, TSH3, ESR, LIPID, CBC, T4F ####[place] [address] [address] Erythrocyte sedimentation ra te by Photometric methodOrdered By: Gautam Dill on 10-19-2023 ESR Photometric method (Bld) [Velocity] 14 mm/hr 0-29 [facility] Erythrocytes [#/volume] in B lood by Automated countOrdered By: Gautam Dill on 10-19-2023 RBC (Bld) [#/Vol] 4.78 10*6/uL Normal 3.60-5.00 [facility] Comment on above: Performed By: #### C MP, TSH3, ESR, LIPID, CBC, T4F ####[place] [address] [address] Glucose [Mass/volume] in Ser um or PlasmaOrdered By: Gautam Dill on 10-19-2023 Glucose [Mass/Vol] 92 mg/dL Normal 70-100 [facility] Comment on above: ADA recommended refe rence rangeRandom Glucose Reference Range is dependent on time and content of last meal. Glucose of more than 200 mg/dL in a nonstressed, ambulatory subject supports the diagnosis of Diabetes Mellitus. Result Comment: [place] om Glucose Reference Range is dependent on time and content of last meal. Glucose of more than 200 mg/dL in a nonstressed, ambulatory subject supports the diagnosis of Diabetes Mellitus. ADA recommended reference range Performed By: #### C MP, TSH3, ESR, LIPID, CBC, T4F #### [address] [place] [address] [place] Hematocrit [Volume Fraction] of Blood by Automated countOrdered By: Gautam Dill on 10-19-2023 Hematocrit (Bld) [Volume fraction] 42.9 % Normal 34.0-46.4 [facility] Comment on above: Performed By: #### C MP, TSH3, ESR, LIPID, CBC, T4F ####[facility] Hemoglobin [Mass/volume] in BloodOrdered By: Gautam Dill on 10-19-2023 Hemoglobin (Bld) [Mass/Vol] 14.5 g/dL Normal 11.8-15.4 [facility] Comment on above: Performed By: #### C MP, TSH3, ESR, LIPID, CBC, T4F ####[facility] Leukocytes [#/volume] correc daron for nucleated erythrocytes in Blood by Automated counOrdered By: Gautam Dill on 10-19-2023 WBC corrected for nucl RBC Auto (Bld) [#/Vol] 4.4 10*3/uL 3.8-11.6 [facility] Leukocytes [#/volume] in Blo od by Automated countOrdered By: Gautam Dill on 10-19-2023 WBC (Bld) [#/Vol] 4.4 10*3/uL Normal 3.8-11.6 [facility] Comment on above: Performed By: #### C MP, TSH3, ESR, LIPID, CBC, T4F ####[address] Lipid Panelon 10-19-2023 LDL Cholesterol,Calculated 130 mg/dL High 0-100 [facility] Comment on above: Result Comment: LDL ATP III CLASSIFICATION LDL less than 100 mg/dL Optimal LDL 100-129 mg/dL Near or above optimal LDL 130-159 mg/dL Borderline high LDL 160-189 mg/dL High LDL greater than 189 mg/dL Very high Performed By: #### C MP, TSH3, ESR, LIPID, CBC, T4F #### [facility] [address] Triglyceride w/Reflex 85 mg/dL Normal 0-149 [facility] Comment on above: Result Comment: TRIG ATP III CLASSIFICATION TRIG less than 150 mg/dL Normal TRIG 150-199 mg/dL Borderline high TRIG 200-500 mg/dL High TRIG greater than 500 mg/dL Very high Standard traceable to the Center for Disease Conrtrol and Prevention (CDC) test method. Performed By: #### C MP, TSH3, ESR, LIPID, CBC, T4F #### [address] VLDL CHOLESTEROL 17 mg/dL Normal [facility] Comment on above: Performed By: #### C MP, TSH3, ESR, LIPID, CBC, T4F #### [facility] [address] Lymphocytes [#/volume] in Bl ood by Automated countOrdered By: Gautam Dill on 10-19-2023 Lymphocytes (Bld) [#/Vol] 1.6 10*3/uL Normal 1.00-4.8 [facility] Comment on above: Performed By: #### C MP, TSH3, ESR, LIPID, CBC, T4F ####[address] Lymphocytes/100 leukocytes i n Blood by Automated countOrdered By: Gautam Dill on 10-19-2023 Lymphocytes/100 WBC (Bld) 36.0 % Normal . [facility] Comment on above: Performed By: #### C MP, TSH3, ESR, LIPID, CBC, T4F ####[address] MCH [Entitic mass] by Automa daron countOrdered By: Gautam Dill on 10-19-2023 MCH (RBC) [Entitic mass] 30.2 pg Normal 24.7-34.3 [facility] Comment on above: Performed By: #### C MP, TSH3, ESR, LIPID, CBC, T4F ####[address] MCHC Auto (RBC) [Mass/Vol]Or dered By: Gautam Dill on 10-19-2023 MCHC (RBC) [Mass/Vol] 33.7 g/dL 32.0-35.0 [facility] MCV [Entitic volume] by Auto mated countOrdered By: Gautam Dill on 10-19-2023 MCV (RBC) [Entitic vol] 89.9 fL Normal 80-100 [facility] Comment on above: Performed By: #### C MP, TSH3, ESR, LIPID, CBC, T4F ####[place] [id number] Neutrophils [#/volume] in Bl ood by Automated countOrdered By: Gautam Dill on 10-19-2023 Neutrophils (Bld) [#/Vol] 2.2 10*3/uL Normal 1.8-7.7 [facility] Comment on above: Performed By: #### C MP, TSH3, ESR, LIPID, CBC, T4F ####[address] No Panel InformationOrdered By: Gautam Dill on 10-19-2023 Estimated GFR (CKD-EPI) > 60.0 mL/Min [facility] Creatinine Clearance (Chem N/A [facility] Nucleated erythrocytes [Pres ence] in Blood by Automated countOrdered By: Gautam Dill on 10-19-2023 Nucleated RBC Auto Ql (Bld) 0.2 /100{WBC} 0-0.5 [facility] Platelet mean volume [Entiti c volume] in Blood by Automated countOrdered By: Gautam Dill on 10-19-2023 Platelet mean volume (Bld) [Entitic vol] 9.5 fL Normal 6.3-10.7 [facility] Comment on above: Performed By: #### C MP, TSH3, ESR, LIPID, CBC, T4F ####[address] Platelets [#/volume] in Bloo d by Automated countOrdered By: Gautam Dill on 10-19-2023 Platelets (Bld) [#/Vol] 191 10*3/uL Normal 150-450 [facility] Comment on above: Performed By: #### C MP, TSH3, ESR, LIPID, CBC, T4F ####[facility] [id number] Potassium [Moles/volume] in Serum or PlasmaOrdered By: Gautam Dill on 10-19-2023 Potassium [Moles/Vol] 4.2 mmol/L Normal 3.5-5.1 [facility] Comment on above: Performed By: #### C MP, TSH3, ESR, LIPID, CBC, T4F #### [facility] [address] Protein [Mass/volume] in Ser um or PlasmaOrdered By: Gautam Dill on 10-19-2023 Protein [Mass/Vol] 6.5 g/dL Normal 6.4-8.9 [facility] Comment on above: Performed By: #### C MP, TSH3, ESR, LIPID, CBC, T4F #### [facility] [address] [place] [address] Serum globulin measurement b y calculation (mass/volume)Ordered By: Gautam Dill on 10-19-2023 Globulin (S) [Mass/Vol] 2.1 g/dL Normal [facility] Comment on above: Performed By: #### C MP, TSH3, ESR, LIPID, CBC, T4F #### [facility] [address] [place] [address] Serum or plasma albumin/glob ulin mass ratioOrdered By: Gautam Dill on 10-19-2023 Albumin/Globulin [Mass ratio] 2.1 {ratio} Normal [facility] Comment on above: Performed By: #### C MP, TSH3, ESR, LIPID, CBC, T4F #### [facility] [address] [place] [address] Serum or plasma anion gap de terminationOrdered By: Gautam Dill on 10-19-2023 Anion gap [Moles/Vol] 11.2 mmol/L Normal 6.0-15.0 [facility] Comment on above: Performed By: #### C MP, TSH3, ESR, LIPID, CBC, T4F #### [facility] [address] [place] [address] Serum or plasma high density lipoprotein (HDL) cholesterol measurementOrdered By: Gautam Dill on 10-19-2023 Cholesterol in HDL [Mass/Vol] 73 mg/dL Normal 23-92 [facility] Comment on above: HDL CHOL ATP-III CLA SSIFICATION Cardiovascular RiskHDL > or equal to 60 mg/dL LOWHDL < 40 mg/dL HIGH Result Comment: HDL CHOL ATP-III CLASSIFICATION Cardiovascular Risk HDL > or equal to 60 mg/dL LOW HDL < 40 mg/dL HIGH Performed By: #### C MP, TSH3, ESR, LIPID, CBC, T4F #### [facility] [address] [place] [address] Serum or plasma total choles terol/high density lipoprotein (HDL) cholesterol mass ratOrdered By: Gautam Dill on 10-19-2023 Cholesterol.total/Dorinda sterol in HDL [Mass ratio] 3.0 {ratio} Normal <5.0 [facility] Comment on above: Performed By: #### C MP, TSH3, ESR, LIPID, CBC, T4F #### [address] Sodium [Moles/volume] in Ser um or PlasmaOrdered By: Gautam Dill on 10-19-2023 Sodium [Moles/Vol] 142 mmol/L Normal 136-145 [facility] Comment on above: Performed By: #### C MP, TSH3, ESR, LIPID, CBC, T4F #### [address] Thyrotropin [Units/volume] i n Serum or PlasmaOrdered By: Gautam Dill on 10-19-2023 TSH Qn 2.40 m[IU]/L Normal 0.45-5.33 [facility] Comment on above: Result Comment: PERF ORMED BY: [place] [address] PATHOLOGIST TELECOMM[employer]ICATIONS REPAIRER LUCRETIA SHANKAR M.D. Performed By: #### C MP, TSH3, ESR, LIPID, CBC, T4F ####[facility] [id number] Thyroxine (T4) free [Mass/vo lume] in Serum or PlasmaOrdered By: Gautam Dill on 10-19-2023 Free T4 [Mass/Vol] 0.83 ng/dL Normal 0.61-1.12 [facility] Comment on above: Performed By: #### C MP, TSH3, ESR, LIPID, CBC, T4F #### [facility] [address] Triglyceride [Mass/volume] i n Serum or PlasmaOrdered By: Gautam Dill on 10-19-2023 Triglyceride [Mass/Vol] 85 mg/dL 0-149 [facility] Comment on above: TRIG ATP III CLASSIF ICATIONTRIG less than 150 mg/dL NormalTRIG 150-199 mg/dL Borderline highTRIG 200-500 mg/dL High TRIG greater than 500 mg/dL Very highStandard traceable to the Center for Disease Conrtrol and Prevention (CDC) test method. Urea nitrogen [Mass/volume] in Serum or PlasmaOrdered By: Gautam Dill on 10-19-2023 Urea nitrogen [Mass/Vol] 16 mg/dL Normal 7-25 [facility] Comment on above: Performed By: #### C MP, TSH3, ESR, LIPID, CBC, T4F #### [facility] [address] Alanine aminotransferase [En zymatic activity/volume] in Serum or PlasmaOrdered By: Gautam Dill on 06-23-2023 ALT [Catalytic activity/Vol] 20 U/L 7-52 [facility] Albumin [Mass/volume] in Ser um or Plasma by Bromocresol green (BCG) dye binding methoOrdered By: Gautam Dill on 06-23-2023 Albumin BCG dye [Mass/Vol] 4.4 g/dL 3.5-5.7 [facility] Alkaline phosphatase [Enzyma tic activity/volume] in Serum or PlasmaOrdered By: Gautam Dill on 06-23-2023 ALP [Catalytic activity/Vol] 87 U/L 34-104 [facility] Aspartate aminotransferase [ Enzymatic activity/volume] in Serum or PlasmaOrdered By: Gautam Dill on 06-23-2023 AST [Catalytic activity/Vol] 18 U/L 13-39 [facility] Basophils Auto (Bld) [#/Vol] Ordered By: Gautam Dill on 06-23-2023 Basophils (Bld) [#/Vol] 0.0 10*3/uL 0.0-0.2 [facility] Basophils/100 WBC Auto (Bld) Ordered By: Gautam Dill on 06-23-2023 Basophils/100 WBC (Bld) 0.9 % . [facility] Bilirubin.total [Mass/volume ] in Serum or PlasmaOrdered By: Gautam Dill on 06-23-2023 Bilirubin [Mass/Vol] 0.5 mg/dL 0.3-1.0 [facility] Calcium [Mass/volume] in Ser um or PlasmaOrdered By: Gautam Dill on 06-23-2023 Calcium [Mass/Vol] 9.4 mg/dL 8.6-10.3 [facility] Carbon dioxide, total [Moles /volume] in Serum or PlasmaOrdered By: Gautam Dill on 06-23-2023 CO2 [Moles/Vol] 29.8 mmol/L 21.0-31.0 [facility] Chloride [Moles/volume] in S bonita or PlasmaOrdered By: Gautam Dill on 06-23-2023 Chloride [Moles/Vol] 108 mmol/L 98-107 [facility] Cholesterol [Mass/volume] in Serum or PlasmaOrdered By: Gautam Dill on 06-23-2023 Cholesterol [Mass/Vol] 230 mg/dL 140-200 [facility] Comment on above: Chol less than 200 m g/dl low riskChol 201-239 mg/dl borderline riskChol 240 mg/dl and greater high risk Cholesterol in LDL Calc [Mas s/Vol]Ordered By: Gautam Dill on 06-23-2023 Cholesterol in LDL [Mass/Vol] 128 mg/dL 0-100 [facility] Comment on above: LDL ATP III CLASSIFI CATIONLDL less than 100 mg/dL OptimalLDL 100-129 mg/dL Near or above optimalLDL 130-159 mg/dL Borderline highLDL 160-189 mg/dL HighLDL greater than 189 mg/dL Very high Cholesterol in VLDL Calc [Ma ss/Vol]Ordered By: Gautam Dill on 06-23-2023 Cholesterol in VLDL [Mass/Vol] 22 mg/dL [facility] Creatinine [Mass/volume] in Serum or PlasmaOrdered By: Gautam Dill on 06-23-2023 Creatinine [Mass/Vol] 0.89 mg/dL 0.60-1.20 [facility] Eosinophils Auto (Bld) [#/Vo l]Ordered By: Gautam Dill on 06-23-2023 Eosinophils (Bld) [#/Vol] 0.2 10*3/uL 0.0-0.45 [facility] Eosinophils/100 WBC Auto (Bl d)Ordered By: Gautam Dill on 06-23-2023 Eosinophils/100 WBC (Bld) 3.5 % . [facility] Erythrocyte distribution wid th Auto (RBC) [Ratio]Ordered By: Gautam Dill on 06-23-2023 Erythrocyte distribution width (RBC) [Ratio] 14.3 % 11.9-15.3 [facility] Ferritin [Mass/volume] in Se rum or PlasmaOrdered By: Gautam Dill on 06-23-2023 Ferritin [Mass/Vol] 38.9 ng/mL 11.0-306.8 [facility] Globulin Calc (S) [Mass/Vol] Ordered By: Gautam Dill on 06-23-2023 Globulin (S) [Mass/Vol] 2.0 g/dL [facility] Glucose [Mass/volume] in Ser um or PlasmaOrdered By: Gautam Dill on 06-23-2023 Glucose [Mass/Vol] 100 mg/dL 70-100 [facility] Comment on above: ADA recommended refe rence rangeRandom Glucose Reference Range is dependent on time and content of last meal. Glucose of more than 200 mg/dL in a nonstressed, ambulatory subject supports the diagnosis of Diabetes Mellitus. Glucose mean value [Mass/vol ume] in Blood Estimated from glycated hemoglobinOrdered By: Gautam Dill on 06-23-2023 Average glucose Estimated from glycated hemoglobin (Bld) [Mass/Vol] 105 mg/dL [facility] Hematocrit Auto (Bld) [Volum e fraction]Ordered By: Gautam Dill on 06-23-2023 Hematocrit (Bld) [Volume fraction] 44.7 % 34.0-46.4 [facility] Hemoglobin A1c percentageOrd ered By: Gautam Dill on 06-23-2023 HbA1c (Bld) [Mass fraction] 5.3 % 4.3-5.6 [facility] Comment on above: Increased risk for d iabetes: 5.7 - 6.4diabetes: >6.4glycemic control for adults with diabetes: <7.0 Hemoglobin [Mass/volume] in BloodOrdered By: Gautam Dill on 06-23-2023 Hemoglobin (Bld) [Mass/Vol] 14.8 g/dL 11.8-15.4 [facility] Iron [Mass/volume] in Serum or PlasmaOrdered By: Gautam Dill on 06-23-2023 Iron [Mass/Vol] 123 ug/dL 50-212 [facility] Iron binding capacity [Mass/ volume] in Serum or PlasmaOrdered By: Gautam Dill on 06-23-2023 Iron binding capacity [Mass/Vol] 356 ug/dL 255-450 [facility] Iron saturation [Mass Fracti on] in Serum or PlasmaOrdered By: Gautam Dill on 06-23-2023 Iron saturation [Mass fraction] 34.6 % 20-50 [facility] Leukocytes [#/volume] correc daron for nucleated erythrocytes in Blood by Automated counOrdered By: Gautam Dill on 06-23-2023 WBC corrected for nucl RBC Auto (Bld) [#/Vol] 4.8 10*3/uL 3.8-11.6 [facility] Lymphocytes Auto (Bld) [#/Vo l]Ordered By: Gautam Dill on 06-23-2023 Lymphocytes (Bld) [#/Vol] 2.0 10*3/uL 1.00-4.8 [facility] Lymphocytes/100 WBC Auto (Bl d)Ordered By: Gautam Dill on 06-23-2023 Lymphocytes/100 WBC (Bld) 41.3 % . [facility] MCH Auto (RBC) [Entitic mass ]Ordered By: Gautam Dill on 06-23-2023 MCH (RBC) [Entitic mass] 30.0 pg 24.7-34.3 [facility] MCHC Auto (RBC) [Mass/Vol]Or dered By: Gautam Dill on 06-23-2023 MCHC (RBC) [Mass/Vol] 33.1 g/dL 32.0-35.0 [facility] MCV Auto (RBC) [Entitic vol] Ordered By: Gautam Dill on 06-23-2023 MCV (RBC) [Entitic vol] 90.8 fL 80-100 [facility] Magnesium [Mass/volume] in S bonita or PlasmaOrdered By: Gautam Dill on 06-23-2023 Magnesium [Mass/Vol] 2.0 mg/dL 1.9-2.7 [facility] Monocytes Auto (Bld) [#/Vol] Ordered By: Gautam Dill on 06-23-2023 Monocytes (Bld) [#/Vol] 0.3 10*3/uL 0.0-0.8 [facility] Monocytes/100 WBC Auto (Bld) Ordered By: Gautam Dill on 06-23-2023 Monocytes/100 WBC (Bld) 5.9 % . [facility] Neutrophils Auto (Bld) [#/Vo l]Ordered By: Gautam Dill on 06-23-2023 Neutrophils (Bld) [#/Vol] 2.3 10*3/uL 1.8-7.7 [facility] Neutrophils/100 WBC Auto (Bl d)Ordered By: Gautam Dill on 06-23-2023 Neutrophils/100 WBC (Bld) 48.4 % . [facility] No Panel InformationOrdered By: Gautam Dill on 06-23-2023 Estimated GFR (CKD-EPI) > 60.0 mL/Min [facility] Creatinine Clearance (Chem N/A [facility] Nucleated erythrocytes [Pres ence] in Blood by Automated countOrdered By: Gautam Dill on 06-23-2023 Nucleated RBC Auto Ql (Bld) 0.1 /100{WBC} 0-0.5 [facility] Platelet mean volume Auto (B ld) [Entitic vol]Ordered By: Gautam Dill on 06-23-2023 Platelet mean volume (Bld) [Entitic vol] 9.2 fL 6.3-10.7 [facility] Platelets Auto (Bld) [#/Vol] Ordered By: Gautam Dill on 06-23-2023 Platelets (Bld) [#/Vol] 210 10*3/uL 150-450 [facility] Potassium [Moles/volume] in Serum or PlasmaOrdered By: Gautam Dill on 06-23-2023 Potassium [Moles/Vol] 4.2 mmol/L 3.5-5.1 [facility] Protein [Mass/volume] in Ser um or PlasmaOrdered By: Gautam Dill on 06-23-2023 Protein [Mass/Vol] 6.4 g/dL 6.4-8.9 [facility] RBC Auto (Bld) [#/Vol]Ordere d By: Gautam Dill on 06-23-2023 RBC (Bld) [#/Vol] 4.93 10*6/uL 3.60-5.00 [facility] Random cortisol measurementO rdered By: Gautam Dill on 06-23-2023 Cortisol [Mass/Vol] 13.8 ug/dL [facility] Comment on above: [facility] chemist intern and method:[employer] UNICEL DXI, POLYCLONAL ANTIBODY CORTISOL ASSAY.Reference range: AM 6 - 24 ug/dl PM <10 ug/dl Serum or plasma albumin/glob ulin mass ratioOrdered By: Gautam Dill on 06-23-2023 Albumin/Globulin [Mass ratio] 2.2 {ratio} [facility] Serum or plasma anion gap de terminationOrdered By: Gautam Dill on 06-23-2023 Anion gap [Moles/Vol] 10.4 mmol/L 6.0-15.0 [facility] Serum or plasma high density lipoprotein (HDL) cholesterol measurementOrdered By: aGutam Dill on 06-23-2023 Cholesterol in HDL [Mass/Vol] 80 mg/dL 23-92 [facility] Comment on above: HDL CHOL ATP-III CLA SSIFICATION Cardiovascular RiskHDL > or equal to 60 mg/dL LOWHDL < 40 mg/dL HIGH Serum or plasma total choles terol/high density lipoprotein (HDL) cholesterol mass ratOrdered By: Gautam Dill on 06-23-2023 Cholesterol.total/Dorinda sterol in HDL [Mass ratio] 2.9 {ratio} <5.0 [facility] Sodium [Moles/volume] in Ser um or PlasmaOrdered By: Gautam Dill on 06-23-2023 Sodium [Moles/Vol] 144 mmol/L 136-145 [facility] Thyrotropin [Units/volume] i n Serum or PlasmaOrdered By: Gautam Dill on 06-23-2023 TSH Qn 1.81 m[IU]/L 0.45-5.33 [facility] Thyroxine (T4) free [Mass/vo lume] in Serum or PlasmaOrdered By: Gautam Dill on 06-23-2023 Free T4 [Mass/Vol] 0.82 ng/dL 0.61-1.12 [facility] Transferrin [Mass/volume] in Serum or PlasmaOrdered By: Gautam Dill on 06-23-2023 Transferrin [Mass/Vol] 254 mg/dL 203-362 [facility] Triglyceride [Mass/volume] i n Serum or PlasmaOrdered By: Gautam Dill on 06-23-2023 Triglyceride [Mass/Vol] 111 mg/dL 0-149 [facility] Comment on above: TRIG ATP III CLASSIF ICATIONTRIG less than 150 mg/dL NormalTRIG 150-199 mg/dL Borderline highTRIG 200-500 mg/dL High TRIG greater than 500 mg/dL Very highStandard traceable to the Center for Disease Conrtrol and Prevention (CDC) test method. Urea nitrogen [Mass/volume] in Serum or PlasmaOrdered By: Gautam Dill on 06-23-2023 Urea nitrogen [Mass/Vol] 9 mg/dL 7-25 [facility] Vitamin D+Metabolites [Mass/ volume] in Serum or PlasmaOrdered By: Gautam Dill on 06-23-2023 Vitamin D+Metabolites [Mass/Vol] 21.3 ng/mL 30-100 [facility] Comment on above: VITAMIN D STATUS 25( [place])VITAMIN D RANGE (ng/mL) Deficient <20 Insufficient 20 to <30Sufficient 30 to 100Reference: David MF,Mason NC, Susan SPANGLER, et al. Evaluation,treatment, and prevention of vitamin D deficiency; an Endocrine Society clinical practice guideline. JCEM. 2010; 96(7):1911-30. WBC Auto (Bld) [#/Vol]Ordere d By: Gautam Dill on 06-23-2023 WBC (Bld) [#/Vol] 4.8 10*3/uL 3.8-11.6 [facility] Alanine aminotransferase [En zymatic activity/volume] in Serum or PlasmaOrdered By: Gautam Dill on 12-21-2022 ALT [Catalytic activity/Vol] 15 U/L 7-52 [facility] Albumin [Mass/volume] in Ser um or Plasma by Bromocresol green (BCG) dye binding methoOrdered By: Gautam Dill on 12-21-2022 Albumin BCG dye [Mass/Vol] 4.4 g/dL 3.5-5.7 [facility] Alkaline phosphatase [Enzyma tic activity/volume] in Serum or PlasmaOrdered By: Gautam Dill on 12-21-2022 ALP [Catalytic activity/Vol] 85 U/L 34-104 [facility] Aspartate aminotransferase [ Enzymatic activity/volume] in Serum or PlasmaOrdered By: Gautam Dill on 12-21-2022 AST [Catalytic activity/Vol] 16 U/L 13-39 [facility] Basophils Auto (Bld) [#/Vol] Ordered By: Gautam Dill on 12-21-2022 Basophils (Bld) [#/Vol] 0.0 10*3/uL 0.0-0.2 [facility] Basophils/100 WBC Auto (Bld) Ordered By: Gautam Dill on 12-21-2022 Basophils/100 WBC (Bld) 0.7 % . [facility] Bilirubin.total [Mass/volume ] in Serum or PlasmaOrdered By: Gautam Dill on 12-21-2022 Bilirubin [Mass/Vol] 0.5 mg/dL 0.3-1.0 [facility] Calcium [Mass/volume] in Ser um or PlasmaOrdered By: Gautam Dill on 12-21-2022 Calcium [Mass/Vol] 9.5 mg/dL 8.6-10.3 [facility] Carbon dioxide, total [Moles /volume] in Serum or PlasmaOrdered By: Gautam Dill on 12-21-2022 CO2 [Moles/Vol] 28.2 mmol/L 21.0-31.0 [facility] Chloride [Moles/volume] in S bonita or PlasmaOrdered By: Gautam Dill on 12-21-2022 Chloride [Moles/Vol] 106 mmol/L 98-107 [facility] Cholesterol [Mass/volume] in Serum or PlasmaOrdered By: Gautam Dill on 12-21-2022 Cholesterol [Mass/Vol] 209 mg/dL 140-200 [facility] Comment on above: Chol less than 200 m g/dl low riskChol 201-239 mg/dl borderline riskChol 240 mg/dl and greater high risk Cholesterol in LDL Calc [Mas s/Vol]Ordered By: Gautam Dill on 12-21-2022 Cholesterol in LDL [Mass/Vol] 117 mg/dL 0-100 [facility] Comment on above: LDL ATP III CLASSIFI CATIONLDL less than 100 mg/dL OptimalLDL 100-129 mg/dL Near or above optimalLDL 130-159 mg/dL Borderline highLDL 160-189 mg/dL HighLDL greater than 189 mg/dL Very high Cholesterol in VLDL Calc [Ma ss/Vol]Ordered By: Gautam Dill on 12-21-2022 Cholesterol in VLDL [Mass/Vol] 16 mg/dL [facility] Creatinine [Mass/volume] in Serum or PlasmaOrdered By: Gautam Dill on 12-21-2022 Creatinine [Mass/Vol] 0.84 mg/dL 0.60-1.20 [facility] Eosinophils Auto (Bld) [#/Vo l]Ordered By: Gautam Dill on 12-21-2022 Eosinophils (Bld) [#/Vol] 0.4 10*3/uL 0.0-0.45 [facility] Eosinophils/100 WBC Auto (Bl d)Ordered By: Gautam Dill on 12-21-2022 Eosinophils/100 WBC (Bld) 8.4 % . [facility] Erythrocyte distribution wid th Auto (RBC) [Ratio]Ordered By: Gautam Dill on 12-21-2022 Erythrocyte distribution width (RBC) [Ratio] 14.0 % 11.9-15.3 [facility] Globulin Calc (S) [Mass/Vol] Ordered By: Gautam Dill on 12-21-2022 Globulin (S) [Mass/Vol] 2.3 g/dL [facility] Glucose [Mass/volume] in Ser um or PlasmaOrdered By: Gautam Dill on 12-21-2022 Glucose [Mass/Vol] 85 mg/dL 70-100 [facility] Comment on above: ADA recommended refe rence rangeRandom Glucose Reference Range is dependent on time and content of last meal. Glucose of more than 200 mg/dL in a nonstressed, ambulatory subject supports the diagnosis of Diabetes Mellitus. Hematocrit Auto (Bld) [Volum e fraction]Ordered By: Gautam Dill on 12-21-2022 Hematocrit (Bld) [Volume fraction] 43.7 % 34.0-46.4 [facility] Hemoglobin [Mass/volume] in BloodOrdered By: Gautam Dill on 12-21-2022 Hemoglobin (Bld) [Mass/Vol] 14.3 g/dL 11.8-15.4 [facility] Leukocytes [#/volume] correc daron for nucleated erythrocytes in Blood by Automated counOrdered By: Gautam Dill on 12-21-2022 WBC corrected for nucl RBC Auto (Bld) [#/Vol] 4.7 10*3/uL 3.8-11.6 [facility] Lymphocytes Auto (Bld) [#/Vo l]Ordered By: Gautam Dill on 12-21-2022 Lymphocytes (Bld) [#/Vol] 1.3 10*3/uL 1.00-4.8 [facility] Lymphocytes/100 WBC Auto (Bl d)Ordered By: Gautam Dill on 12-21-2022 Lymphocytes/100 WBC (Bld) 27.1 % . [facility] MCH Auto (RBC) [Entitic mass ]Ordered By: Gautam Dill on 12-21-2022 MCH (RBC) [Entitic mass] 29.6 pg 24.7-34.3 [facility] MCHC Auto (RBC) [Mass/Vol]Or dered By: Gautam Dill on 12-21-2022 MCHC (RBC) [Mass/Vol] 32.8 g/dL 32.0-35.0 [facility] MCV Auto (RBC) [Entitic vol] Ordered By: Gautam Dill on 12-21-2022 MCV (RBC) [Entitic vol] 90.3 fL 80-100 [facility] Monocytes Auto (Bld) [#/Vol] Ordered By: Gautam Dill on 12-21-2022 Monocytes (Bld) [#/Vol] 0.3 10*3/uL 0.0-0.8 [facility] Monocytes/100 WBC Auto (Bld) Ordered By: Gautam Dill on 12-21-2022 Monocytes/100 WBC (Bld) 6.9 % . [facility] Neutrophils Auto (Bld) [#/Vo l]Ordered By: Gautam Dill on 12-21-2022 Neutrophils (Bld) [#/Vol] 2.7 10*3/uL 1.8-7.7 [facility] Neutrophils/100 WBC Auto (Bl d)Ordered By: Gautam Dill on 12-21-2022 Neutrophils/100 WBC (Bld) 56.9 % . [facility] No Panel InformationOrdered By: Gautam Dill on 12-21-2022 Estimated GFR (CKD-EPI) > 60.0 mL/Min [facility] Creatinine Clearance (Chem N/A [facility] Nucleated erythrocytes [Pres ence] in Blood by Automated countOrdered By: Gautam Dill on 12-21-2022 Nucleated RBC Auto Ql (Bld) 0.1 /100{WBC} 0-0.5 [facility] Platelet mean volume Auto (B ld) [Entitic vol]Ordered By: Gautam Dill on 12-21-2022 Platelet mean volume (Bld) [Entitic vol] 9.4 fL 6.3-10.7 [facility] Platelets Auto (Bld) [#/Vol] Ordered By: Gautam Dill on 12-21-2022 Platelets (Bld) [#/Vol] 176 10*3/uL 150-450 [facility] Potassium [Moles/volume] in Serum or PlasmaOrdered By: Gautam Dill on 12-21-2022 Potassium [Moles/Vol] 4.7 mmol/L 3.5-5.1 [facility] Protein [Mass/volume] in Ser um or PlasmaOrdered By: Gautam Dill on 12-21-2022 Protein [Mass/Vol] 6.7 g/dL 6.4-8.9 [facility] RBC Auto (Bld) [#/Vol]Ordere d By: Gautam Dill on 12-21-2022 RBC (Bld) [#/Vol] 4.84 10*6/uL 3.60-5.00 [facility] Serum or plasma albumin/glob ulin mass ratioOrdered By: Gautam Dill on 12-21-2022 Albumin/Globulin [Mass ratio] 1.9 {ratio} [facility] Serum or plasma anion gap de terminationOrdered By: Gautam Dill on 12-21-2022 Anion gap [Moles/Vol] 11.5 mmol/L 6.0-15.0 [facility] Serum or plasma high density lipoprotein (HDL) cholesterol measurementOrdered By: Gautam Dill on 12-21-2022 Cholesterol in HDL [Mass/Vol] 76 mg/dL 23-92 [facility] Comment on above: HDL CHOL ATP-III CLA SSIFICATION Cardiovascular RiskHDL > or equal to 60 mg/dL LOWHDL < 40 mg/dL HIGH Serum or plasma total choles terol/high density lipoprotein (HDL) cholesterol mass ratOrdered By: Gautam Dill on 12-21-2022 Cholesterol.total/Dorinda sterol in HDL [Mass ratio] 2.8 {ratio} <5.0 [facility] Sodium [Moles/volume] in Ser um or PlasmaOrdered By: Gautam Dill on 12-21-2022 Sodium [Moles/Vol] 141 mmol/L 136-145 [facility] Thyrotropin [Units/volume] i n Serum or PlasmaOrdered By: Gautam Dill on 12-21-2022 TSH Qn 1.48 m[IU]/L 0.45-5.33 [facility] Thyroxine (T4) free [Mass/vo lume] in Serum or PlasmaOrdered By: Gautam Dill on 12-21-2022 Free T4 [Mass/Vol] 0.87 ng/dL 0.61-1.12 [facility] Triglyceride [Mass/volume] i n Serum or PlasmaOrdered By: Gautam Dill on 12-21-2022 Triglyceride [Mass/Vol] 82 mg/dL 0-149 [facility] Comment on above: TRIG ATP III CLASSIF ICATIONTRIG less than 150 mg/dL NormalTRIG 150-199 mg/dL Borderline highTRIG 200-500 mg/dL High TRIG greater than 500 mg/dL Very highStandard traceable to the Center for Disease Conrtrol and Prevention (CDC) test method. Urea nitrogen [Mass/volume] in Serum or PlasmaOrdered By: Gautam Dill on 12-21-2022 Urea nitrogen [Mass/Vol] 13 mg/dL 7-25 [facility] Vitamin D+Metabolites [Mass/ volume] in Serum or PlasmaOrdered By: Gautam Dill on 12-21-2022 Vitamin D+Metabolites [Mass/Vol] 30.1 ng/mL 30-100 [facility] Comment on above: VITAMIN D STATUS 25( [place])VITAMIN D RANGE (ng/mL) Deficient <20 Insufficient 20 to <30Sufficient 30 to 100Reference: David MF,Mason DEXTER, Susan SPANGLER, et al. Evaluation,treatment, and prevention of vitamin D deficiency; an Endocrine Society clinical practice guideline. JCEM. 2010; 96(7):1911-30. WBC Auto (Bld) [#/Vol]Ordere d By: Gautam Dill on 12-21-2022 WBC (Bld) [#/Vol] 4.7 10*3/uL 3.8-11.6 [facility] Basophils Auto (Bld) [#/Vol] Ordered By: Gautam Dill on 07-02-2022 Basophils (Bld) [#/Vol] 0.1 10*3/uL 0.0-0.2 [facility] Basophils/100 WBC Auto (Bld) Ordered By: Gautam Dill on 07-02-2022 Basophils/100 WBC (Bld) 1.2 % . [facility] Eosinophils Auto (Bld) [#/Vo l]Ordered By: Gautam Dill on 07-02-2022 Eosinophils (Bld) [#/Vol] 0.4 10*3/uL 0.0-0.45 [facility] Eosinophils/100 WBC Auto (Bl d)Ordered By: aGutam Dill on 07-02-2022 Eosinophils/100 WBC (Bld) 8.1 % . [facility] Erythrocyte distribution wid th Auto (RBC) [Ratio]Ordered By: Gautam Dill on 07-02-2022 Erythrocyte distribution width (RBC) [Ratio] 14.2 % 11.9-15.3 [facility] Hematocrit Auto (Bld) [Volum e fraction]Ordered By: Gautam Dill on 07-02-2022 Hematocrit (Bld) [Volume fraction] 46.1 % 34.0-46.4 [facility] Hemoglobin [Mass/volume] in BloodOrdered By: Gautam Dill on 07-02-2022 Hemoglobin (Bld) [Mass/Vol] 15.0 g/dL 11.8-15.4 [facility] Leukocytes [#/volume] correc daron for nucleated erythrocytes in Blood by Automated counOrdered By: Gautam Dill on 07-02-2022 WBC corrected for nucl RBC Auto (Bld) [#/Vol] 5.5 10*3/uL 3.8-11.6 [facility] Lymphocytes Auto (Bld) [#/Vo l]Ordered By: Gautam Dill on 07-02-2022 Lymphocytes (Bld) [#/Vol] 2.2 10*3/uL 1.00-4.8 [facility] Lymphocytes/100 WBC Auto (Bl d)Ordered By: Guatam Dill on 07-02-2022 Lymphocytes/100 WBC (Bld) 39.5 % . [facility] MCH Auto (RBC) [Entitic mass ]Ordered By: Gautam Dill on 07-02-2022 MCH (RBC) [Entitic mass] 29.2 pg 24.7-34.3 [facility] MCHC Auto (RBC) [Mass/Vol]Or dered By: Gautam Dill on 07-02-2022 MCHC (RBC) [Mass/Vol] 32.5 g/dL 32.0-35.0 [facility] MCV Auto (RBC) [Entitic vol] Ordered By: Gautam Dill on 07-02-2022 MCV (RBC) [Entitic vol] 89.9 fL 80-100 [facility] Monocytes Auto (Bld) [#/Vol] Ordered By: Gautam Dill on 07-02-2022 Monocytes (Bld) [#/Vol] 0.4 10*3/uL 0.0-0.8 [facility] Monocytes/100 WBC Auto (Bld) Ordered By: Gautam Dill on 07-02-2022 Monocytes/100 WBC (Bld) 7.0 % . [facility] Neutrophils Auto (Bld) [#/Vo l]Ordered By: Gautam Dill on 07-02-2022 Neutrophils (Bld) [#/Vol] 2.4 10*3/uL 1.8-7.7 [facility] Neutrophils/100 WBC Auto (Bl d)Ordered By: Gautam Dill on 07-02-2022 Neutrophils/100 WBC (Bld) 44.2 % . [facility] Nucleated erythrocytes [Pres ence] in Blood by Automated countOrdered By: Gautam Dill on 07-02-2022 Nucleated RBC Auto Ql (Bld) 0.1 /100{WBC} 0-0.5 [facility] Platelet mean volume Auto (B ld) [Entitic vol]Ordered By: Gautam Dill on 07-02-2022 Platelet mean volume (Bld) [Entitic vol] 8.9 fL 6.3-10.7 [facility] Platelets Auto (Bld) [#/Vol] Ordered By: Gautam Dill on 07-02-2022 Platelets (Bld) [#/Vol] 202 10*3/uL 150-450 [facility] RBC Auto (Bld) [#/Vol]Ordere d By: Gautam Dill on 07-02-2022 RBC (Bld) [#/Vol] 5.13 10*6/uL 3.60-5.00 [facility] WBC Auto (Bld) [#/Vol]Ordere d By: Gautam Dill on 07-02-2022 WBC (Bld) [#/Vol] 5.5 10*3/uL 3.8-11.6 [facility] Basophils Auto (Bld) [#/Vol] Ordered By: Gautam Dill on 03-31-2022 Basophils (Bld) [#/Vol] 0.0 10*3/uL 0.0-0.2 [facility] Basophils/100 WBC Auto (Bld) Ordered By: Gautam Dill on 03-31-2022 Basophils/100 WBC (Bld) 0.8 % . [facility] Eosinophils Auto (Bld) [#/Vo l]Ordered By: Gautam Dill on 03-31-2022 Eosinophils (Bld) [#/Vol] 0.2 10*3/uL 0.0-0.45 [facility] Eosinophils/100 WBC Auto (Bl d)Ordered By: Gautam Dill on 03-31-2022 Eosinophils/100 WBC (Bld) 4.8 % . [facility] Erythrocyte distribution wid th Auto (RBC) [Ratio]Ordered By: Gautam Dill on 03-31-2022 Erythrocyte distribution width (RBC) [Ratio] 14.2 % 11.9-15.3 [facility] Hematocrit Auto (Bld) [Volum e fraction]Ordered By: Gautam Dill on 03-31-2022 Hematocrit (Bld) [Volume fraction] 45.0 % 34.0-46.4 [facility] Hemoglobin [Mass/volume] in BloodOrdered By: Gautam Dill on 03-31-2022 Hemoglobin (Bld) [Mass/Vol] 14.6 g/dL 11.8-15.4 [facility] Laboratory - Hematology and Cell countsOrdered By: Gautam Dill on 03-31-2022 Nucleated RBC/100 WBC (Bld) [Ratio] 0.1 % 0-0.5 [facility] Leukocytes [#/volume] in Blo od by Automated countOrdered By: Gautam Dill on 03-31-2022 WBC (Bld) [#/Vol] 4.3 10*3/uL 4.5-11.0 [facility] Lymphocytes Auto (Bld) [#/Vo l]Ordered By: Gautam Dill on 03-31-2022 Lymphocytes (Bld) [#/Vol] 1.8 10*3/uL 1.00-4.8 [facility] Lymphocytes/100 WBC Auto (Bl d)Ordered By: Gautam Dill on 03-31-2022 Lymphocytes/100 WBC (Bld) 42.9 % . [facility] MCH Auto (RBC) [Entitic mass ]Ordered By: Gautam Dill on 03-31-2022 MCH (RBC) [Entitic mass] 29.7 pg 24.7-34.3 [facility] MCHC Auto (RBC) [Mass/Vol]Or dered By: Gautam Dill on 03-31-2022 MCHC (RBC) [Mass/Vol] 32.5 g/dL 32.0-35.0 [facility] MCV Auto (RBC) [Entitic vol] Ordered By: Gautam Dill on 03-31-2022 MCV (RBC) [Entitic vol] 91.5 fL 80-100 [facility] Monocytes Auto (Bld) [#/Vol] Ordered By: Gautam Dill on 03-31-2022 Monocytes (Bld) [#/Vol] 0.3 10*3/uL 0.0-0.8 [facility] Monocytes/100 WBC Auto (Bld) Ordered By: Gautam Dill on 03-31-2022 Monocytes/100 WBC (Bld) 6.2 % . [facility] Neutrophils Auto (Bld) [#/Vo l]Ordered By: Gautam Dill on 03-31-2022 Neutrophils (Bld) [#/Vol] 1.9 10*3/uL 1.8-7.7 [facility] Neutrophils/100 WBC Auto (Bl d)Ordered By: Gautam Dill on 03-31-2022 Neutrophils/100 WBC (Bld) 45.3 % . [facility] Platelet mean volume Auto (B ld) [Entitic vol]Ordered By: Gautam Dill on 03-31-2022 Platelet mean volume (Bld) [Entitic vol] 9.3 fL 6.3-10.7 [facility] Platelets Auto (Bld) [#/Vol] Ordered By: Gautam Dill on 03-31-2022 Platelets (Bld) [#/Vol] 184 10*3/uL 150-450 [facility] RBC Auto (Bld) [#/Vol]Ordere d By: Gautam Dill on 03-31-2022 RBC (Bld) [#/Vol] 4.92 10*6/uL 3.60-5.00 [facility] Basophils Auto (Bld) [#/Vol] Ordered By: Gautam Dill on 02-25-2022 Basophils (Bld) [#/Vol] 0.0 10*3/uL 0.0-0.2 [facility] Basophils/100 WBC Auto (Bld) Ordered By: Gautam Dill on 02-25-2022 Basophils/100 WBC (Bld) 1.0 % . [facility] Body fluid albumin measureme nt (mass/volume)Ordered By: Gautam Dill on 02-25-2022 Albumin (Body fld) [Mass/Vol] 4.0 g/dL 3.2-5.[address] [facility] [address] biopsyOrdered By: Gautam dunlap on 02-25-2022 Transferrin [Mass/Vol] 247 mg/dL 180-380 [facility] Cholesterol [Mass/volume] in Serum or PlasmaOrdered By: Gautam Dill on 02-25-2022 Cholesterol [Mass/Vol] 226 mg/dL 140-200 [facility] Comment on above: Chol less than 200 m g/dl low riskChol 201-239 mg/dl borderline riskChol 240 mg/dl and greater high risk Cholesterol in LDL Calc [Mas s/Vol]Ordered By: Gautam Dill on 02-25-2022 Cholesterol in LDL [Mass/Vol] 128 mg/dL 0-100 [facility] Comment on above: LDL ATP III CLASSIFI CATIONLDL less than 100 mg/dL OptimalLDL 100-129 mg/dL Near or above optimalLDL 130-159 mg/dL Borderline highLDL 160-189 mg/dL HighLDL greater than 189 mg/dL Very high Cholesterol in VLDL Calc [Ma ss/Vol]Ordered By: Gautam Dill on 02-25-2022 Cholesterol in VLDL [Mass/Vol] 17 mg/dL [facility] Creatinine and Glomerular fi ltration rate.predicted panel (S/P/Bld)Ordered By: Gautam Dill on 02-25-2022 Creatinine [Mass/Vol] 0.82 mg/dL 0.44-1.03 [facility] Eosinophils Auto (Bld) [#/Vo l]Ordered By: Gautam Dill on 02-25-2022 Eosinophils (Bld) [#/Vol] 0.3 10*3/uL 0.0-0.45 [facility] Eosinophils/100 WBC Auto (Bl d)Ordered By: Gautam Dill on 02-25-2022 Eosinophils/100 WBC (Bld) 6.6 % . [facility] Erythrocyte distribution wid th Auto (RBC) [Ratio]Ordered By: Gautam Dill on 02-25-2022 Erythrocyte distribution width (RBC) [Ratio] 13.9 % 11.9-15.3 [facility] Estimated glomerular filtrat ion rate (GFR) non- AmericanOrdered By: Gautam Dill on 02-25-2022 GFR/1.73 sq M.predicted among non-blacks MDRD (S/P/Bld) [Vol rate/Area] > 60 mL/Min [facility] Ferritin [Mass/volume] in Se rum or PlasmaOrdered By: Gautam Dill on 02-25-2022 Ferritin [Mass/Vol] 60.3 ng/mL 11-306.8 [facility] Globulin Calc (S) [Mass/Vol] Ordered By: Gautam Dill on 02-25-2022 Globulin (S) [Mass/Vol] 2.1 g/dL [facility] Hematocrit Auto (Bld) [Volum e fraction]Ordered By: Gautam Dill on 02-25-2022 Hematocrit (Bld) [Volume fraction] 44.0 % 34.0-46.4 [facility] Hemoglobin [Mass/volume] in BloodOrdered By: Gautam Dill on 02-25-2022 Hemoglobin (Bld) [Mass/Vol] 14.7 g/dL 11.8-15.4 [facility] Iron [Mass/volume] in Serum or PlasmaOrdered By: Gautam Dill on 02-25-2022 Iron [Mass/Vol] 94 ug/dL 40-150 [facility] Iron binding capacity [Mass/ volume] in Serum or PlasmaOrdered By: Gautam Dill on 02-25-2022 Iron binding capacity [Mass/Vol] 346 ug/dL 255-450 [facility] Iron saturation [Mass Fracti on] in Serum or PlasmaOrdered By: Gautam Dill on 02-25-2022 Iron saturation [Mass fraction] 27.0 % 20-50 [facility] Laboratory - Hematology and Cell countsOrdered By: Gautam Dill on 02-25-2022 Nucleated RBC/100 WBC (Bld) [Ratio] 0.1 % 0-0.5 [facility] Leukocytes [#/volume] in Blo od by Automated countOrdered By: Gautam Dill on 02-25-2022 WBC (Bld) [#/Vol] 4.2 10*3/uL 4.5-11.0 [facility] Lymphocytes Auto (Bld) [#/Vo l]Ordered By: Gautam Dill on 02-25-2022 Lymphocytes (Bld) [#/Vol] 1.9 10*3/uL 1.00-4.8 [facility] Lymphocytes/100 WBC Auto (Bl d)Ordered By: Gautam Dill on 02-25-2022 Lymphocytes/100 WBC (Bld) 45.7 % . [facility] MCH Auto (RBC) [Entitic mass ]Ordered By: Gautam Dill on 02-25-2022 MCH (RBC) [Entitic mass] 30.4 pg 24.7-34.3 [facility] MCHC Auto (RBC) [Mass/Vol]Or dered By: Gautam Dill on 02-25-2022 MCHC (RBC) [Mass/Vol] 33.4 g/dL 32.0-35.0 [facility] MCV Auto (RBC) [Entitic vol] Ordered By: Gautam Dill on 02-25-2022 MCV (RBC) [Entitic vol] 91.2 fL 80-100 [facility] Monocytes Auto (Bld) [#/Vol] Ordered By: Gautam Dill on 02-25-2022 Monocytes (Bld) [#/Vol] 0.3 10*3/uL 0.0-0.8 [facility] Monocytes/100 WBC Auto (Bld) Ordered By: Gautam Dill on 02-25-2022 Monocytes/100 WBC (Bld) 7.5 % . [facility] Neutrophils Auto (Bld) [#/Vo l]Ordered By: Gautam Dill on 02-25-2022 Neutrophils (Bld) [#/Vol] 1.7 10*3/uL 1.8-7.7 [facility] Neutrophils/100 WBC Auto (Bl d)Ordered By: Gautam Dill on 02-25-2022 Neutrophils/100 WBC (Bld) 39.2 % . [facility] No Panel InformationOrdered By: Gautam Dill on 02-25-2022 25-Hydroxy Vitamin D Total 25.2 ng/mL 30-100 [facility] Comment on above: VITAMIN D STATUS 25( [place])VITAMIN D RANGE (ng/mL) Deficient <20 Insufficient 20 to <30Sufficient 30 to 100Reference: David MF,Mason NC, Susan SPANGLER, et al. Evaluation,treatment, and prevention of vitamin D deficiency; an Endocrine Society clinical practice guideline. JCEM. 2010; 96(7):1911-30. Estimated GFR () > 60 mL/Min [facility] Comment on above: GFR estimated refere nce range: According to KDOQI guidelines, <60 ml/min/1.73m2 is sufficient to diagnose a patient with chronic kidney disease. Pharmacy Creatinine Clearance (Chem N/A [facility] Platelet mean volume Auto (B ld) [Entitic vol]Ordered By: Gautam Dill on 02-25-2022 Platelet mean volume (Bld) [Entitic vol] 9.5 fL 6.3-10.7 [facility] Platelets Auto (Bld) [#/Vol] Ordered By: Gautam Dill on 02-25-2022 Platelets (Bld) [#/Vol] 198 10*3/uL 150-450 [facility] Protein [Mass/volume] in Ser um or PlasmaOrdered By: Gautam Dill on 02-25-2022 Protein [Mass/Vol] 6.1 g/dL 6.1-7.9 [facility] RBC Auto (Bld) [#/Vol]Ordere d By: Gautam Dill on 02-25-2022 RBC (Bld) [#/Vol] 4.82 10*6/uL 3.60-5.00 [facility] Serum or plasma alanine ding otransferase measurement without P-5'-P (enzymatic activiOrdered By: Gautam Dill on 02-25-2022 ALT No additional P-5'-P [Catalytic activity/Vol] 18 U/L 10-60 [facility] Serum or plasma albumin/glob ulin mass ratioOrdered By: Gautam Dill on 02-25-2022 Albumin/Globulin [Mass ratio] 1.9 {ratio} [facility] Serum or plasma alkaline molly sphatase measurement (enzymatic activity/volume)Ordered By: Gautam Dill on 02-25-2022 ALP [Catalytic activity/Vol] 79 U/L 32-92 [facility] Serum or plasma anion gap de terminationOrdered By: Gautam Dill on 02-25-2022 Anion gap [Moles/Vol] 12.4 mmol/L 6.0-15.0 [facility] Serum or plasma aspartate am inotransferase measurement (enzymatic activity/volume)Ordered By: Gautam Dill on 02-25-2022 AST [Catalytic activity/Vol] 17 U/L 1042 [facility] Serum or plasma calcium patricia urement (mass/volume)Ordered By: Gautam Dill on 02-25-2022 Calcium [Mass/Vol] 9.4 mg/dL 8.2-10.2 [facility] Serum or plasma chloride isi surement (moles/volume)Ordered By: Gautam Dill on 02-25-2022 Chloride [Moles/Vol] 104 mmol/L 95-114 [facility] Serum or plasma glucose patricia urement (mass/volume)Ordered By: Gautam Dill on 02-25-2022 Glucose [Mass/Vol] 93 mg/dL 70-100 [facility] Comment on above: ADA recommended refe rence rangeRandom Glucose Reference Range is dependent on time and content of last meal. Glucose of more than 200 mg/dL in a nonstressed, ambulatory subject supports the diagnosis of Diabetes Mellitus. Serum or plasma high density lipoprotein (HDL) cholesterol measurementOrdered By: Gautam Dill on 02-25-2022 Cholesterol in HDL [Mass/Vol] 81 mg/dL 35-85 [facility] Comment on above: HDL CHOL ATP-III CLA SSIFICATION Cardiovascular RiskHDL > or equal to 60 mg/dL LOWHDL < 40 mg/dL HIGH Serum or plasma potassium me asurement (moles/volume)Ordered By: Gautam Dill on 02-25-2022 Potassium [Moles/Vol] 4.1 mmol/L 3.5-5.1 [facility] Serum or plasma sodium measu rement (moles/volume)Ordered By: Gautam Dill on 02-25-2022 Sodium [Moles/Vol] 139 mmol/L 136-146 [facility] Serum or plasma total biliru bin measurement (mass/volume)Ordered By: Gautam Dill on 02-25-2022 Bilirubin [Mass/Vol] 0.5 mg/dL 0.3-1.2 [facility] Serum or plasma total carbon dioxide measurement (moles/volume)Ordered By: Gautam Dill on 02-25-2022 CO2 [Moles/Vol] 26.7 mmol/L 22.0-30.0 [facility] Serum or plasma total choles terol/high density lipoprotein (HDL) cholesterol mass ratOrdered By: Gautam Dill on 02-25-2022 Cholesterol.total/Dorinda sterol in HDL [Mass ratio] 2.8 {ratio} <5.0 [facility] Serum or plasma urea nitroge n measurement (mass/volume)Ordered By: Gautam Dill on 02-25-2022 Urea nitrogen [Mass/Vol] 12 mg/dL 9-23 [facility] TSH DL <= 0.005 mIU/L QnOrde red By: Gautam Dill on 02-25-2022 TSH Qn 3.10 m[IU]/L 0.45-5.33 [facility] Thyroxine (T4) free [Mass/vo lume] in Serum or PlasmaOrdered By: Gautam Dill on 02-25-2022 Free T4 [Mass/Vol] 0.83 ng/dL 0.61-1.12 [facility] Triglyceride [Mass/volume] i n Serum or PlasmaOrdered By: Gautam Dill on 02-25-2022 Triglyceride [Mass/Vol] 86 mg/dL 35-149 [facility] Comment on above: TRIG ATP III [...] : DR YUNIEL CASTELLANOS M.D. Admission #: [id number] Family : DR GAUTAM DILL Order #: [id number] CLICK HERE TO VIEW EXAM RADIOLOGY REPORT [...] Castellanos MD on 11/05/2021 at 10:[address] [facility] VC VENOUS REFLUX ROJELIO LMTon 0 11-05-2021 VC VENOUS REFLUX ROJELIO LMT Patient: IRIS THOMASON Exam Date: 11/05/2021 : 1965 Gender:F Ordering : DR YUNIEL CASTELLANOS M.D. Admission #: [id number] Family : Order #: [id number] CLICK HERE TO VIEW EXAM RADIOLOGY REPORT [...] chronic thrombus visualized Compressibility: Normal Flow: Normal [employer] Operator: Mid/med calf 2.9cm, 0s reflux; prox/ant calf [...] Castellanos MD on 11/05/2021 at 09:[address] [facility] COVID + FLU Quick Testingon 05-20-2021 COVID + FLU Quick Testing Negative [employer] Other Pre-Authorization for Medica l Treatmenton 05-12-2021 Pre-Authorization for Medical Treatment [id number]. [id number]# 1.00CD:127 Normal [facility] Ambulatory Clinical Summaryo n 04-20-2021 Ambulatory Clinical Summary {[id number]}CD:[id number] Normal [facility] Patient Educationon 04-20-20 Patient Education Urology Kidney Stones Kidney stones [...] these instructions at home: Medicines ? Take [id number] and prescription medicines only as told by [...] 10/11/2008 Document Revised: 09/11/2019 Document Reviewed: 09/11/2019 [employer] Patient Education ? 2019 [employer] Normal [facility] Urology Office/Clinic Noteon 04-20-2021 Urology Office/Clinic Note Chief Complaint Pt is here for recurrent UTI HPI Staff Iris is a 56 y.o. female new patient here for recurrent UTI. Referred by Gautma Dill. Urine culture done on 03/03/21 was [...] baths & hot tubs, avoid any scented [employer] products, urinate after sexual activity, etc) post-menopause x 1.5 yrs. pt already has rx for estrogen cream per [employer] however she hasn't been using it due to risk of cervical cancer. has appt with [employer] next week. I encouraged her to discuss with them bc I think the estrogen cream will be very helpful in UTI prevention. +hx kidney stones with spontaneous passage 8-10 yrs ago. no recent imaging. will check KUB and renal US. return for cysto/possible UD. Ordered: Office Visit Level 4 New 31958 Urnls Dip Stick Auto w/o Microscopy POC 81063 US Renal XR Abdomen 1 View 2. OAB (overactive bladder) (N32.81: Overactive bladder) bothersome frequency, urgency, and variable nocturia with mixed incontinence. has not tried any treatment in past. will address once we get through the UTI work-up. f/u w me 1 mo after cysto. need to check PVR prior to starting any meds. Ordered: Office Visit Level 4 New 88211 3. Mixed incontinence urge and stress (N39.46: Mixed incontinence) see #2 Ordered: Office Visit Level 4 New 99214 4. Kidney stones (N20.0: Calculus of kidney) no recent flank pain or gross hematuria. will image due to recurrent UTIs. see #1. Ordered: Office Visit Level 4 New 32084 US Renal XR Abdomen 1 View Follow-up With When Contact Information cysto/UD with DLS, f/u with me 1 mo later Additional Instructions: Patient Education Kidney Stones, [id number] Problem List/Past Medical History Ongoing Anxiety Autonomic [...] Levaquin (Diarrhea) (more content not included)... Normal [facility] Comment on above: Result Comment: Elec tronically Signed By: JENNI OSBORNE PA-C\Date and Time Signed: 04/20/21 10:26 EST Vital Signs Date Time Vital Sign Value Performing Clinician Facility 10-08-2024 14:26-0400 Body mass index (BMI) [Ratio] 32.21 kg/m2 Pradhab Kirupaharan DO Work Phone: [facility] 10-08-2024 14:26-0400 Body temperature 98.01 [degF] Pradhab Kirupaharan DO Work Phone: [facility] 10-08-2024 14:26-0400 Body weight 89 kg Pradhab Kirupaharan DO Work Phone: [facility] 10-08-2024 14:26-0400 Diastolic blood pressure 72 mm[Hg] Pradhab Kirupaharan DO Work Phone: [facility] 10-08-2024 14:26-0400 Heart rate 70 /min Pradhab Kirupaharan DO Work Phone: [facility] 10-08-2024 14:26-0400 Respiratory rate 18 /min Pradhab Kirupaharan DO Work Phone: [facility] 10-08-2024 14:26-0400 SaO2% (BldA) [Mass fraction] 98 % Pradhab Kirupaharan DO Work Phone: [facility] 10-08-2024 14:26-0400 Systolic blood pressure 138 mm[Hg] Pradhab Kirupaharan DO Work Phone: [facility] 10-08-2024 14:00-0400 Body height 166.2 cm Pulm A110 Work Phone: [facility] 10-08-2024 14:00-0400 Body mass index (BMI) [Ratio] 32.47 kg/m2 Pulm A110 Work Phone: [facility] 10-08-2024 14:00-0400 Body weight 89.7 kg Pulm A110 Work Phone: [place] [id number] 12:31-0400 Diastolic blood pressure 85 mm[Hg] Wing Porterman [employer]LL[employer]ATIVE TE[employer] Work Phone: [facility] 10-05-2024 12:31-0400 Heart rate 62 /min Wing Farrell COLLABORATIVE TEACHER.[employer] WORKER Work Phone: [facility] 10-05-2024 12:31-0400 Systolic blood pressure 152 mm[Hg] Wing Farrell COLLABORATIVE TEACHER.[employer] WORKER Work Phone: [facility] 10-05-2024 12:28-0400 Body mass index (BMI) [Ratio] 30.84 kg/m2 Wing Farrell COLLABORATIVE TEACHER.[employer] WORK[employer] Work Phone: [facility] 10-05-2024 12:28-0400 Body weight 88 kg Wingrichelle Farrell COLLABORATIVE TEACHER.[employer] WORKER Work Phone: [facility] 10-05-2024 12:28-0400 SaO2% (BldA) [Mass fraction] 99 % Wing Porterdiego SMITHN.[employer] WORK[employer] Work Phone: [facility] 09-11-2024 09:05-0400 Body mass index (BMI) [Ratio] 30.23 kg/m2 Keiko Cordova DO Work Phone: [facility] [employer] 09-11-2024 09:05-0400 Body weight 87.54 kg Keiko Del RealWandoujia DO Work Phone: [facility] [employer] 09-11-2024 09:05-0400 Diastolic blood pressure 72 mm[Hg] Keiko Nasimakes DO Work Phone: [facility] [employer] 09-11-2024 09:05-0400 Systolic blood pressure 120 mm[Hg] Keiko Nasimakes DO Work Phone: [facility] [employer] 07-26-2024 10:35-0400 Body height 171.45 cm Gautam Rogerscee [employer] Work Phone: [facility] 07-26-2024 10:35-0400 Body mass index (BMI) [Ratio] 30.3 kg/m2 Gautam Dill DO Work Phone: [facility] 07-26-2024 10:35-0400 Body weight 89.2 kg Gautam Dill DO Work Phone: [facility] 07-04-2024 15:28-0500 Body height 168.9 cm Lorenzo Lora MD Work Phone: [facility] 07-04-2024 15:28-0500 Body mass index (BMI) [Ratio] 31.07 kg/m2 Lorenzo Lora MD Work Phone: [facility] 07-04-2024 15:28-0500 Body weight 88.63 kg Lorenzo Lora MD Work Phone: [facility] 07-04-2024 15:28-0500 Diastolic blood pressure 83 mm[Hg] Lorenzo Lora MD Work Phone: [facility] 07-04-2024 15:28-0500 Heart rate 65 /min Lorenzo Lora MD Work Phone: [facility] 07-04-2024 15:28-0500 SaO2% (BldA) [Mass fraction] 98 % Lorenzo Lora MD Work Phone: [facility] 07-04-2024 15:28-0500 Systolic blood pressure 149 mm[Hg] Lorenzo Lora MD Work Phone: [facility] 06-13-2024 11:15-0500 Body height 170.2 cm Keiko Rinkes DO Work Phone: [facility] 06-13-2024 11:15-0500 Body mass index (BMI) [Ratio] 31.48 kg/m2 Keiko Rinkes DO Work Phone: [facility] 06-13-2024 11:15-0500 Body weight 91.17 kg Keiko Rinkes DO Work Phone: [facility] 06-13-2024 11:15-0500 Diastolic blood pressure 78 mm[Hg] Keiko Rinkes DO Work Phone: [facility] 06-13-2024 11:15-0500 Systolic blood pressure 130 mm[Hg] Keiko Del Realkes DO Work Phone: [facility] 02-08-2024 11:24-0400 Body height 170.18 cm DO Gautam Dill Work Phone: [facility] 02-08-2024 11:24-0400 Body mass index (BMI) [Ratio] 31.8 kg/m2 DO Gautam Dill Work Phone: [facility] 02-08-2024 11:24-0400 Body weight 92.07 kg DO Gautam Dill Work Phone: [facility] 01-12-2024 10:22-0400 Body mass index (BMI) [Ratio] 31.96 kg/m2 Keiko Del Realkes DO Work Phone: [facility] 01-12-2024 10:22-0400 Body weight 91.17 kg Keiko Del Realkes DO Work Phone: [facility] 01-12-2024 10:22-0400 Diastolic blood pressure 78 mm[Hg] Keiko Rinkes DO Work Phone: [facility] 01-12-2024 10:22-0400 Systolic blood pressure 132 mm[Hg] Keiko Del Realkes DO Work Phone: [facility] 01-03-2024 13:36-0400 Body mass index (BMI) [Ratio] 32.08 kg/m2 Delores Visci DO Work Phone: [facility] 01-03-2024 13:36-0400 Body weight 91.54 kg Delores Visci DO Work Phone: [facility] 01-03-2024 13:36-0400 Diastolic blood pressure 86 mm[Hg] Delores Visci DO Work Phone: [facility] 01-03-2024 13:36-0400 Systolic blood pressure 154 mm[Hg] Delores Visci DO Work Phone: [facility] 11-16-2023 15:24-0400 Diastolic blood pressure 65 mm[Hg] Lainey Lindsey MD, PhD Work Phone: [facility] 11-16-2023 15:24-0400 Heart rate 62 /min Lainey Lindsey MD, PhD Work Phone: [facility] 11-16-2023 15:24-0400 Systolic blood pressure 153 mm[Hg] Lainey Lindsey MD, PhD Work Phone: [facility] 10-19-2023 08:43-0400 Body height 171.45 cm DO Gautam Dill Work Phone: [facility] 10-19-2023 08:43-0400 Body mass index (BMI) [Ratio] 30.5 kg/m2 DO Gautam Eldas Work Phone: [facility] 10-19-2023 08:43-0400 Body weight 89.81 kg DO Gautam Eldas Work Phone: [facility] 10-19-2023 08:43-0400 Diastolic blood pressure 66 mm[Hg] DO Gautam Eldas Work Phone: [facility] 10-19-2023 08:43-0400 Heart rate 70 /min DO Gautam Eldas Work Phone: [facility] 10-19-2023 08:43-0400 Respiratory rate 16 /min DO Gautam Eldas Work Phone: [facility] 10-19-2023 08:43-0400 SaO2% (BldA) [Mass fraction] 97 % DO Gautam Kuns Work Phone: [facility] 10-19-2023 08:43-0400 Systolic blood pressure 110 mm[Hg] DO Gautam Kuns Work Phone: [facility] 06-20-2023 12:30-0500 Body height 171.45 cm Gautam Dill Other [employer] Other 06-20-2023 12:30-0500 Body mass index (BMI) [Ratio] 30.86 kg/m2 Gautam Aniyah Other [employer] Other 06-20-2023 12:30-0500 Body weight 90.72 kg Gautam Dill Other [employer] Other 06-20-2023 12:30-0500 Diastolic blood pressure 78 mm[Hg] Gautam Dill Other [employer] Other 06-20-2023 12:30-0500 Respiratory rate 16 /min Gautameduarda Dill Other [employer] Other 06-20-2023 12:30-0500 SaO2% (BldA) [Mass fraction] 95 % Gautameduarda Dill Other [employer] Other 06-20-2023 12:30-0500 Systolic blood pressure 122 mm[Hg] Gautam Dill Other [employer] Other 03-22-2023 08:05-0500 Body height 171.5 cm Matthew Hall MD Work Phone: [facility] 03-22-2023 08:05-0500 Body weight 89.81 kg Matthew Hall MD Work Phone: [facility] 03-22-2023 08:05-0500 Diastolic blood pressure 76 mm[Hg] Matthew Hall MD Work Phone: [facility] 03-22-2023 08:05-0500 Heart rate 56 /min Matthew Hall MD Work Phone: [facility] 03-22-2023 08:05-0500 Systolic blood pressure 130 mm[Hg] Matthew Hall MD Work Phone: [facility] 04-05-2022 10:30-0500 Body height 171.45 cm Gautam Dill Other [employer] Other 04-22-2021 08:30-0500 Body height 171.45 cm Gautam Dill Other [employer] Other 04-22-2021 08:30-0500 Body mass index (BMI) [Ratio] 30.49 kg/m2 Gautam Dill Other [employer] Other 04-22-2021 08:30-0500 Body weight 89.63 kg Gautam Dill Other [employer] Other 04-22-2021 08:30-0500 Diastolic blood pressure 74 mm[Hg] Gautam Dill Other [employer] Other 04-22-2021 08:30-0500 Respiratory rate 17 /min Gautam Dill Other [employer] Other 04-22-2021 08:30-0500 SaO2% (BldA) [Mass fraction] 99 % Gautam Dill Other [employer] Other 04-22-2021 08:30-0500 Systolic blood pressure 132 mm[Hg] Gautam Dill Other [employer] Other Encounters Encounter Date Encounter Type Care Provider Facility Start: 10-08-2024 End: 10-08-2024 ambulatory GAUTAM DILL Facility:[facility] Start: 10-08-2024 End: 10-08-2024 Office consultation new/estab patient 60 min Amanda Moreno DO Work Phone: Pulmonary Medicine Comment on above: Palpitations; Pulmonary hypertension (HCC); Postural orthostatic tachycardia syndrome (POTS); Tremor; Essential (primary) hypertension; Thyroid nodule Start: 10-08-2024 End: 10-08-2024 ambulatory REYNA BUCK Pulmonary Medicine Comment on above: Spirometry Start: 10-08-2024 End: 10-08-2024 Patient encounter procedure Pul Fct Lab 1 - A110 Work Phone: Pulmonary Medicine Start: 10-05-2024 End: 10-08-2024 Follow-up encounter Wing Farrell APRN.[employer] VAT WORKER Work Phone: [facility] [facility] Start: 10-05-2024 End: 10-05-2024 Patient encounter procedure Blas Pycraft RT(R) Radiology Ct Scan Start: 10-05-2024 End: 10-05-2024 Office outpatient visit 40 minutes Wing Farrell APRN.[employer] VAT WORKER Work Phone: [facility] [employer] [facility] Comment on above: Lung nodules (Primar y Dx) Start: 10-05-2024 End: 10-05-2024 ambulatory Blas Pycraft RT(R) Radiology Ct Scan Comment on above: Radiology CT Start: 10-05-2024 End: 10-05-2024 Subsequent hospital visit by physician [facility] Radiology Ct Scan Comment on above: Lung nodules [R91.8] Start: 10-04-2024 End: 10-04-2024 Telephone encounter Amanda Moreno DO Work Phone: Pulmonary Medicine Comment on above: Patient Question Start: 10-03-2024 End: 10-03-2024 Telemedicine consultation with patient Lorenzo Lora MD Work Phone: Cardiology Start: 10-03-2024 End: 10-03-2024 ambulatory Lorenzo Lora MD Work Phone: Cardiology Comment on above: Chest pain, unspecif ied type (Primary Dx); Palpitations; Pulmonary hypertension (HCC); SOB (shortness of breath); Elevated blood pressure reading Start: 09-14-2024 End: 09-15-2024 External Result Encounter Keiko Cordova DO Work Phone: [facility] External Department Unsolicited Start: 09-14-2024 End: 09-15-2024 External Result Encounter Keiko Cordova DO Work Phone: [facility] External Department Unsolicited Start: 09-14-2024 End: 09-14-2024 Patient encounter procedure Gautam Dill DO Work Phone: [facility] [place] Work Phone: Start: 09-14-2024 End: 09-14-2024 ambulatory Gautam Dill DO Work Phone: [facility] Work Phone: Start: 09-11-2024 End: 09-11-2024 Patient encounter procedure Keiko Cordova DO Work Phone: [facility] Comment on above: Thickened endometriu m; Dysuria Start: 09-11-2024 End: 09-11-2024 ambulatory KEIKO CORDOVA Not Available Start: 08-16-2024 End: 08-20-2024 Telephone encounter Wing Farrell APRN.CNP Work Phone: Pulmonary Medicine Start: 08-16-2024 End: 08-16-2024 Telemedicine consultation with patient Wingrichelle Porterdiego GARCIA.[employer]SE VAT WORKER Work Phone: Pulmonary Medicine Start: 08-16-2024 End: 08-16-2024 ambulatory Wing Farrell APRN.[employer] VAT WORKER Work Phone: Pulmonary Medicine Comment on above: Lung nodule seen on imaging study (Primary Dx); SOBOE (shortness of breath on exertion); Lung nodules Start: 08-09-2024 End: 08-09-2024 ambulatory Yancy Low RN NURSE SALT MACHINE OPERATOR Comment on above: Results Start: 07-31-2024 End: 07-31-2024 Nursing evaluation of patient and report Nurse Card [facility] Tiffany Work Phone: Cardiology Comment on above: Palpitations; Pulmonary hypertension (HCC) Start: 07-31-2024 End: 07-31-2024 Patient encounter procedure Ca Tuttle RT(R) Radiology Start: 07-31-2024 End: 07-31-2024 ambulatory Ca Tuttle RT(R) Radiology Comment on above: Radiology XR Start: 07-31-2024 End: 07-31-2024 Subsequent hospital visit by physician Xr [facility] [place] Rad[facility] Comment on above: Primary pulmonary hy pertension (HCC) [I27.0] Start: 07-26-2024 End: 07-26-2024 ambulatory Gautam Dill DO Work Phone: [facility] Work Phone: Start: 07-26-2024 End: 07-26-2024 Patient encounter procedure Gautam Dill DO Work Phone: [facility] Work Phone: Start: 07-18-2024 End: 07-25-2024 ambulatory Lorenzo Lora MD Work Phone: Cardiology Comment on above: A question for Dr. Bree prather Start: 07-16-2024 End: 07-26-2024 Telephone encounter Lorenzo Lora MD Work Phone: Cardiology Start: 07-16-2024 End: 07-16-2024 Patient encounter procedure Gautam Dill DO Work Phone: [facility] [place] Work Phone: Start: 07-16-2024 End: 07-16-2024 ambulatory Gautam Dill DO Work Phone: [facility] Work Phone: Start: 07-09-2024 End: 07-17-2024 Telephone encounter Patricio Madrid MD Work Phone: Res[facility] [place] Comment on above: Advice Only Start: 07-08-2024 Non-patient / Non-visit Gautam Dill DO Work Phone: [facility] Work Phone: Start: 07-06-2024 End: 07-17-2024 Telephone encounter Lorenzo Lora MD Work Phone: Cardiology Comment on above: Results (Patient is calling regarding her abnormal lab results. Her potassium is 5.8. And some other labs were off and causing her concern. ) Start: 07-06-2024 Non-patient / Non-visit Gautam Aniyah DO Work Phone: [facility] Work Phone: Start: 07-05-2024 End: 07-06-2024 Telephone encounter Lorenzo Lora MD Work Phone: Cardiology Comment on above: Counseling (Patient went to yesterday to get holter monitor. They were not able to get insurance approval in time.) Start: 07-04-2024 Non-patient / Non-visit Gautam Aniyah DO Work Phone: [facility] Work Phone: Start: 07-04-2024 End: 07-04-2024 Orders Only Reyna Buck APRN.MAGAZINE WORKER Work Phone: Pulmonary Medicine Comment on above: Primary pulmonary hy pertension (HCC) (Primary Dx) Palpitations (Primar y Dx); Pulmonary hypertension (HCC); SOB (shortness of breath); Elevated blood pressure reading Start: 06-15-2024 End: 06-21-2024 Telephone encounter Lorenzo Lora MD Work Phone: Cardiology Comment on above: Results Start: 06-13-2024 End: 06-13-2024 Office outpatient visit 15 minutes Keiko Cordova DO Work Phone: [facility] Comment on above: Thickened endometrshelleyu m Start: 06-13-2024 End: 06-13-2024 ambulatory KEIKO CORDOVA Not Available Start: 05-11-2024 End: 05-11-2024 Orders Only Lorenzo Lora MD Work Phone: Cardiology Comment on above: Pulmonary hypertensi on, unspecified (HCC) (Primary Dx) Start: 04-27-2024 End: 04-27-2024 Patient encounter procedure Gautam Aniyah DO Work Phone: [facility] [place] Work Phone: Start: 04-23-2024 ambulatory [facility] Start: 04-23-2024 ambulatory [facility] Start: 04-04-2024 End: 04-04-2024 ambulatory Gautam Dill Facility:[facility] Start: 04-03-2024 End: 04-04-2024 Telephone encounter Keiko Codrova DO Work Phone: [facility] Start: 03-30-2024 End: 03-30-2024 ambulatory KEIKO CORDOVA Not Available Start: 03-05-2024 End: 03-05-2024 ambulatory PIETRO ELLER [facility] Start: 02-13-2024 End: 02-13-2024 Patient encounter procedure DO Gautam Dill Work Phone: [facility] Work Phone: Start: 02-13-2024 End: 02-13-2024 ambulatory DO Gautam Dill Work Phone: [facility] Work Phone: Start: 02-09-2024 End: 02-09-2024 ambulatory DELORES KENYONI Not Available Start: 02-08-2024 End: 02-08-2024 ambulatory DO Gautam Dill Work Phone: [facility] Work Phone: Start: 02-08-2024 End: 02-08-2024 Patient encounter procedure DO Gautam Dill Work Phone: [facility] Gastroenterology Work Phone: Start: 01-12-2024 End: 01-12-2024 Bamboo flowsheet Keiko Cordova DO Work Phone: [facility] Start: 01-12-2024 End: 01-12-2024 Bamboo flowsheet Keiko Cordova DO Work Phone: [facility] Start: 01-12-2024 End: 01-12-2024 Telephone encounter Keiko Cordova DO Work Phone: [facility] Start: 01-12-2024 End: 01-12-2024 Patient encounter status Keiko Cordova DO Work Phone: [facility] Work Phone: Start: 01-12-2024 End: 01-12-2024 Periodic preventive med est patient 40-64yrs Keiko Cordova DO Work Phone: [facility] Comment on above: Encounter for gyneco logical examination without abnormal finding (Primary Dx); Screening for malignant neoplasm of cervix; Encounter for screening mammogram for breast cancer; Thickened endometrium; Vaginal dryness Start: 01-12-2024 End: 01-12-2024 ambulatory KEIKO CORDOVA Not Available Start: 01-03-2024 End: 01-03-2024 Bamboo flowsheet Delores A Visci DO Work Phone: [facility] Start: 01-03-2024 End: 01-03-2024 Bamboo flowsheet Delores A Visci DO Work Phone: [facility] Start: 01-03-2024 End: 01-03-2024 Office outpatient visit 15 minutes Delores A Visci DO Work Phone: [facility] Comment on above: Breast pain in [...] encounter procedure DO Gautam Dill Work Phone: [facility] [place] Work Phone: Start: 11-16-2023 End: 11-16-2023 ambulatory MATTHEW HALL Facility:[facility] Start: 11-16-2023 End: 11-16-2023 Patient encounter procedure Lainey Lindsey MD, PhD Work Phone: Endocrinology Comment on above: Multiple thyroid nod ules (Primary Dx) Start: 11-07-2023 Telephone encounter Lainey martinez MD, PhD Work Phone: Endocrinology & [facility] [place] Comment on above: Patient Question Start: 10-19-2023 End: 10-19-2023 Patient encounter procedure DO Gautam Dill Work Phone: [facility] [place] Work Phone: Start: 10-19-2023 End: 10-19-2023 ambulatory DO Gautam Dill Work Phone: [facility] Work Phone: Start: 10-19-2023 End: 10-19-2023 ambulatory DO Gautam Dill Work Phone: [facility] Work Phone: Start: 10-19-2023 End: 10-19-2023 Patient encounter procedure DO Gautam Dill Work Phone: [facility] [place] Work Phone: Start: 10-10-2023 End: 10-10-2023 ambulatory DELORES A VISCI Not Available Start: 08-09-2023 Telephone encounter Heather farrar MD Work Phone: Gynecology Comment on above: Question Start: 08-08-2023 End: 08-08-2023 ambulatory Heather Blanton MD Work Phone: Gynecology Comment on above: Thickened endometriu m (Primary Dx) Start: 08-08-2023 End: 08-08-2023 Telemedicine consultation with patient Heather Blanton MD Work Phone: [facility] Start: 07-14-2023 Telephone encounter Matthew Hall MD Work Phone: Endocrinology Comment on above: fax # Start: 06-23-2023 End: 06-23-2023 ambulatory DO Gautam Dill Work Phone: [facility] Work Phone: Start: 06-23-2023 End: 06-23-2023 Patient encounter procedure DO Gautam Dill Work Phone: [facility] [place] Work Phone: Start: 06-20-2023 End: 06-20-2023 ambulatory Gautam Dill Other [employer] Other Start: 06-20-2023 Office outpatient visit 25 minutes Gautam Dill [facility] [place] Start: 06-16-2023 End: 06-16-2023 ambulatory Gautam Dill Other [employer] Other Start: 06-16-2023 Telephone encounter Gautam Dill [facility] [place] Start: 05-12-2023 End: 05-12-2023 ambulatory Gautam Dill Other [employer] Other Start: 05-12-2023 Telephone encounter Gautam Dill [facility] [place] Start: 04-11-2023 End: 04-11-2023 ambulatory Gautam Dill Other [employer] Other Start: 04-11-2023 Telephone encounter Gautameduarda Dill [facility] [place] Start: 03-22-2023 End: 03-22-2023 Office outpatient new 45 minutes Matthew Hall MD Work Phone: Endocrinology Comment on above: Multiple thyroid nod ules (Primary Dx) Start: 01-18-2023 End: 01-18-2023 ambulatory Gautam Dill Other [employer] Other Start: 01-18-2023 Telephone encounter [facility] Start: 12-31-2022 Telephone encounter Lainey martinez MD, PhD Work Phone: [address] [place] [address] Comment on above: Patient Question Start: 12-22-2022 End: 12-22-2022 ambulatory Gautam Dill Other [employer] Other Start: 12-22-2022 Telephone encounter Gautam Aniyah [facility] [place] Start: 12-21-2022 End: 12-21-2022 ambulatory DO Gautameduarda Dill Work Phone: [facility] Work Phone: Start: 12-21-2022 End: 12-21-2022 Patient encounter procedure DO Gautameduarda Dill Work Phone: [facility] [place] Work Phone: Start: 12-20-2022 End: 12-20-2022 ambulatory Gautam Dill Other [employer] Other Start: 12-20-2022 Telephone encounter Gautam Aniyah [facility] [place] Start: 08-19-2022 End: 08-19-2022 ambulatory Gautam Dill Other [employer] Other Start: 08-19-2022 Telephone encounter Gautam Dill [facility] [place] Start: 08-07-[address] GAUTAM DILL Facility: Start: 08-04-2022 End: 08-04-2022 ambulatory Gautam Dill Other [employer] Other Start: 08-04-2022 Telephone encounter Gautam Dill [facility] [place] Start: 07-05-2022 End: 07-05-2022 ambulatory Gautam Dill Other [employer] Other Start: 07-05-2022 Telephone encounter Gautam Dill [facility] [place] Start: 07-02-2022 End: 07-02-2022 ambulatory DO Gautam Dill Work Phone: [facility] Work Phone: Start: 07-02-2022 End: 07-02-2022 Patient encounter procedure DO Gautam Dill Work Phone: [facility] [place] Work Phone: Start: 05-18-2022 End: 05-18-2022 ambulatory Gautam Dill Other [employer] Other Start: 05-18-2022 Telephone encounter Gautam Dill [facility] [place] Start: 04-07-2022 End: 04-07-2022 ambulatory Gautam Dill Other [employer] Other Start: 04-07-2022 Telephone encounter Gautam Dill [facility] [place] Start: 04-05-2022 End: 04-05-2022 ambulatory Gautam Dill Other [employer] Other Start: 04-05-2022 Office outpatient visit 15 minutes Gautam Dill [facility] [place] Start: 04-05-2022 Telephone encounter Gautam Dill [facility] [place] Start: 03-31-2022 End: 03-31-2022 ambulatory DO Gautam Dill Work Phone: [facility] Work Phone: Start: 03-31-2022 End: 03-31-2022 Patient encounter procedure DO Gautam Dill Work Phone: [facility] [place] Start: 03-23-2022 End: 03-23-2022 ambulatory DO Gautam Dill Work Phone: [facility] Work Phone: Start: 03-23-2022 End: 03-23-2022 Patient encounter procedure DO Gautam Dill Work Phone: [facility] Start: 03-01-2022 End: 03-01-2022 ambulatory Gautam Dill Other [employer] Other Start: 03-01-2022 Telephone encounter Gautam Aniyah [facility] [place] Start: 02-25-2022 Telephone encounter Gautam Aniyah [facility] [place] Start: 02-25-2022 End: 02-25-2022 ambulatory DO Gautam Dill Work Phone: [employer] Other Start: 02-25-2022 End: 02-25-2022 Patient encounter procedure DO Gautam Dill Work Phone: [facility] [place] Start: 02-16-2022 End: 02-16-2022 ambulatory Gautam Aniyah Other [employer] Other Start: 02-16-2022 Telephone encounter Gautam Aniyah [facility] [place] Start: 01-29-2022 End: 01-29-2022 ambulatory Gautam Dill Other [employer] Other Start: 01-29-2022 Telephone encounter Gautam Dill [facility] Start: 11-13-2021 End: 11-13-2021 ambulatory FIORELLA MA Facility:[facility] Start: 11-05-2021 End: 11-06-[address] YUNIEL CASTELLANOS Facility:[facility] Start: 10-27-2021 End: 10-27-2021 ambulatory Gautam Dill Other [employer] Other Start: 10-27-2021 Telephone encounter Gautam Dill [facility] Start: 08-05-2021 End: 08-05-2021 ambulatory Gautam Dill Other [employer] Other Start: 08-05-2021 Telephone encounter Gautam Dill [facility] Start: 05-20-2021 End: 05-20-2021 ambulatory Gautam Dill Other [employer] Other Start: 05-20-2021 Nursing evaluation o f patient and report Gautam Dill [facility] Start: 04-22-2021 End: 04-22-2021 ambulatory Gautam Dill Other [employer] Other Start: 04-22-2021 Office outpatient visit 25 minutes Gautam Dill [facility] Start: 08-22-2017 Ambulatory GAUTAM DILL Facility:[id number] Start: 08-22-2017 Ambulatory Facility:[id number] Procedures Date Procedure Procedure Detail Performing Clinician Start: 10-08-2024 Pulmonary stress testing Reyna Buck COLLABORATIVE TEACHER.MAGAZINE WORKER Work Phone: Start: 10-05-2024 Ct thorax w/o contra st material Wing Farrell COLLABORATIVE TEACHER.[employer]YE [employer]SE VAT WORKER Work Phone: Start: 10-03-2024 Follow-up visit Follow Up LORENZO BENTON Start: 09-14-2024 Culture bacterial quanttative colony count urine Keiko E Tasha DO Work Phone: Start: 09-11-2024 ENDOMETRIAL BIOPSY Lesa Cordova DO Work Phone: Start: 07-31-2024 Radiologic exam ches t 2 views Reyna Buck COLLABORATIVE TEACHER.MAGAZINE WORKER Work Phone: Start: 07-04-2024 Lipid 1996 panel - S bonita or Plasma Lorenzo Lora MD Work Phone: Start: 04-23-2024 Lipid 1996 panel - S bonita or Plasma Reyna Sampsona COLLABORATIVE TEACHER.MAGAZINE WORKER Work Phone: Start: 11-24-2023 CT of abdomen and pe lvis without contrast DO Gautam Dill Work Phone: Start: 11-24-2023 US scan of gallbladder DO Gautam Aniyah Work Phone: Start: 11-16-2023 Us soft tissue head & neck real time imge argenis Lindsey MD, PhD Work Phone: Start: 03-23-2022 Screening mammograph y of bilateral breasts DO Gautam Rogerscee Work Phone: Counseling Gautam Dill Other Plan of Treatment Date Care Activity Detail Author Start: 04-08-2032 Urine microalbumin profile DTaP,Tdap,Td Vaccine (2 - Td or Tdap) [facility] Start: 07-04-2029 Lipid panel Lipid Screening [facility] Start: 04-23-2029 Lipid panel Lipid Screening [facility] Start: 07-04-2027 Diabetes Screening Diabetes Screenin g [facility] Start: 04-23-2027 Diabetes Screening Diabetes Screenin g [facility] Start: 02-08-2025 Screening for malign ant neoplasm of breast Mammogram Screening [facility] Start: 01-22-2025 End: 01-22-2025 Patient encounter procedure 01/22/2025 9:30 AM EDT Office Visit [facility] [address] [place] [id number] Keiko Cordova, DO [address] [place], [place] [id number] [facility] Start: 01-07-2025 Influenza vaccination Influenz a Vaccine (Season Ended) [facility] Start: 01-02-2025 End: 01-02-2025 ambulatory 01/02/2025 8:00 AM EDT [facility] Cardiology [address] [place] [address] Lorenzo Lora MD [address] [place] [address] Dx:pulmonary hypertension, second opinion Cardiology Comment on above: Dx:pulmonary hyperte nsion, second opinion Start: 11-06-2024 End: 12-23-2024 US Thyroid gland US THYROID/PARATHYROID Radiology Routine Multiple thyroid nodules Expected: 11/06/2024, Expires: 12/23/2024 [facility] Work Phone: Comment on above: Expected: 11/06/2024 , Expires: 12/23/2024 Start: 10-29-2024 End: 10-29-2024 Patient encounter procedure Radiology Ct Scan Comment on above: lung nodules Start: 10-08-2024 End: 10-08-2024 ambulatory Pulmonary Medicine Comment on above: Primary pulmonary hy pertension (HCC) [I27.0] JH// Primary pulmona ry hypertension (HCC) [I27.0] Start: 10-08-2024 End: 10-08-2024 Patient encounter procedure Molecular Imaging Comment on above: NM LUNG VQ NEW PPH w/ PK + CX R,pfts,echo,VQ-MD stf msg 07-04-24 Palpitations; Pulmonary hypertension (HCC) Start: 10-05-2024 End: 10-05-2024 Patient encounter procedure Radiology Ct Scan Comment on above: CT CHEST WO CONTRAST lung nodules Start: 10-03-2024 End: 10-03-2024 ambulatory 10/03/2024 9:00 AM EDT [facility] Cardiology [address] [place] [address] Lorenzo Lora MD [address] [place] [address] Dx:pulmonary hypertension, second opinion Cardiology Comment on above: Dx:pulmonary hyperte nsion, second opinion Start: 09-14-2024 Bacteria identified in Urine by Culture [facility] Work Phone: Start: 09-14-2024 Urine culture [facility] Start: 07-31-2024 End: 07-31-2024 Nursing evaluation of patient and report 07/31/2024 3:00 PM EDT Nurse Visit Cardiology [address] [place] [address] Tiffany, Nurse Card [facility] [address] [place] [address] Palpitations [R00.2] Cardiology Comment on above: Palpitations [R00.2] Start: 07-31-2024 End: 07-31-2024 Patient encounter procedure Cardiology Comment on above: Dx: Palpitations [R0 0.2] Primary pulmonary hy pertension (HCC) [I27.0] Start: 07-27-2024 End: 07-27-2024 Patient encounter procedure 07/27/2024 2:40 PM EDT Office Visit Cardiology [address] [address] Tiffany, Adding Machine Mechanic [facility] [address] [place] [address] Dx: Palpitations [R00.2] Cardiology Comment on above: Dx: Palpitations [R0 0.2] Start: 07-19-2024 End: 07-19-2024 Patient encounter procedure 07/19/2024 4:15 PM EDT Procedure Visit [facility] [address] [place] [address] Keiko Cordova DO [address] [place] [address] [facility] Start: 07-04-2024 End: 07-04-2024 ambulatory 07/04/2024 1:15 PM EST Results Only Cardiology [address] [place] [address] pulmonary hypertension, second opinion Cardiology Comment on above: pulmonary hypertensi on, second opinion Start: 07-04-2024 End: 07-04-2024 Patient encounter procedure Cardiology Comment on above: pulmonary hypertensi on, second opinion Start: 04-26-2024 End: 04-26-2024 Patient encounter procedure 04/26/2024 9:45 AM EST Office Visit [facility] [address] [place] [address] Keiko Cordova, DO [address] [place] [address] [facility] Start: 03-27-2024 End: 03-27-2024 Patient encounter procedure 03/27/2024 11:15 AM EST Office Visit [facility] [address] [place] [address] Keiko Cordova, DO [address] [place] [address] [facility] Start: 03-15-2024 End: 03-15-2024 Professional / ancillary services management 03/15/2024 9:30 AM EST Ancillary Procedure [facility] [address] [place] [address] [facility] Start: 02-09-2024 End: 02-09-2024 Professional / ancillary services management 02/09/2024 8:00 AM EDT Ancillary Procedure [facility] [place] [address] [place] [address] [facility] [place] Start: 01-12-2024 End: 01-12-2024 Patient encounter procedure [facility] Comment on above: Encounter for gyneco logical examination without abnormal finding; Screening for malignant neoplasm of cervix; Encounter for screening mammogram for breast cancer Start: 01-08-2024 Covid-19 Vaccine ( season) Covid-19 Vaccine ( season) [facility] Start: 01-08-2024 Influenza vaccination [facility] Start: 01-03-2024 End: 03-04-2025 DBT Breast - bilateral screening Bilateral screening mammogram with tomosynthesis Imaging Routine Encounter for screening mammogram for malignant neoplasm of breast Expected: 01/03/2024, Expires: 03/04/2025 [facility] Work Phone: Comment on above: Expected: 01/03/2024 , Expires: 03/04/2025 Start: 01-03-2024 End: 01-03-2024 Patient encounter procedure 01/03/2024 1:00 PM EDT Office Visit [facility] [address] [place] [phone] Delores Cantor DO [address] [place] [address] Arrived [facility] Comment on above: Arrived Start: 11-16-2023 End: 11-16-2023 Patient encounter procedure 11/16/2023 3:40 PM EDT Office Visit Endocrinology [address] [place] [address] Lainey Lindsey MD, PhD [address] [place] [address] Thyroid diagnosis. Endocrinology Comment on above: Thyroid diagnosis. Start: 10-19-2023 Patient referral [facility] Work Phone: Start: 10-19-2023 Comprehensive metabo lic 2000 panel - Serum or Plasma [facility] Start: 10-19-2023 [facility] Start: 08-08-2023 End: 08-07-2024 Basic metabolic 2000 panel - Serum or Plasma BASIC METABOLIC PNL Lab Routine Thickened endometrium Expected: 08/08/2023, Expires: 08/07/2024 [facility] Work Phone: Comment on above: Expected: 08/08/2023 , Expires: 08/07/2024 Start: 08-08-2023 End: 08-07-2024 CBC W Auto Differential panel - Blood CBC + DIFF Lab Routine Thickened endometrium Expected: 08/08/2023, Expires: 08/07/2024 [facility] Work Phone: Comment on above: Expected: 08/08/2023 , Expires: 08/07/2024 Start: 05-09-2023 Behavioral Health Screening Behavioral Health Screening [facility] Start: 05-09-2023 Depression Assessment Depression Ass essment [facility] Start: 04-25-2023 HPV Testing HPV Testing [facility] Start: 04-25-2023 Screening for malign ant neoplasm of cervix HPV Testing [facility] Start: 01-07-2023 Covid-19 Vaccine () Covid-19 Vaccine () [facility] Start: 01-07-2023 Influenza vaccination Influenza Vacc ine (#1) [facility] Start: 05-09-2022 Depression Assessment [facility] Start: 10-30-2021 Screening for malign ant neoplasm of breast Mammogram Screening [facility] Start: 04-17-2021 Diabetes Screening Diabetes Screenin g [facility] Start: 04-25-2019 Pap Testing Pap Testing [facility] Start: 04-25-2019 Screening for malign ant neoplasm of cervix [facility] Start: 2015 Pneumococcal Vaccine : 50+ (1 of 1 - PCV) Pneumococcal Vaccine: 50+ (1 of 1 - PCV) [facility] Start: 2015 Shingrix Vaccine (1 of 2) Shingrix Vaccine (1 of 2) [facility] Start: 05-09-2014 Mammography Mammogram Screening [facility] Start: 05-09-2014 Screening for malign ant neoplasm of breast Mammogram Screening [facility] Start: 2010 Cologuard (FIT-DNA) Cologuard (FIT-D NA) [facility] Start: 2010 Colonoscopy Colonoscopy [facility] Start: 2010 Colorectal Cancer Screening Colorectal Cancer Screening [facility] Start: [address] COLONOGRAPHY [facility] Start: 2010 Fecal Occult Blood Fecal Occult Bloo d [facility] Start: 2010 Lipid 1996 panel - S bonita or Plasma Lipid Screening [facility] Start: 2010 Lipid panel Lipid Screening [facility] Start: 2010 Screening for malign ant neoplasm of colon [facility] Start: 2010 SIGMOIDOSCOPY SIGMOIDOSCOPY [facility] Start: 02-06-1984 Hepatitis B Vaccine (1 of 3 - 19+ 3-dose series) Hepatitis B Vaccine (1 of 3 - 19+ 3-dose series) [facility] Start: 02-06-1984 Urine microalbumin profile DTaP,Tdap,Td Vaccine (1 - Tdap) [facility] Start: 1983 Anxiety Screening Anxiety Screening [facility] Start: 1983 Depression Screening Depression Scre ening [facility] Start: 1983 Hepatitis C Screening Hepatitis C [facility] Start: 1983 Hepatitis C screening Hepatitis C [facility] Start: 1983 HIV Screening HIV Screening [facility] Start: 1983 HIV screening HIV Screening [facility] Start: 1965 Covid-19 Vaccine (#1) Covid-19 Vacci ne (#1) [facility] Start: 1965 Hepatitis B Vaccine (1 of 3 - 3-dose series) Hepatitis B Vaccine (1 of 3 - 3-dose series) [facility] Albumin/Globulin ratio [facility] Anion gap measurement [facility] Bacteria identified in Urine by Culture Urine culture Microbiology Routine Dysuria Ordered: 09/11/2024 [facility] Comment on above: Ordered: 09/11/2024 Basophils [#/volume] in Blood by Automated count [facility] Basophils/100 leukoc ytes in Blood by Automated count [facility] Calculated LDL cholesterol level [facility] Cholesterol.total/Ch oles terol in HDL [Mass Ratio] in Serum or Plasma [facility] End: 09-15-2025 CT Chest WO contrast CT CHEST WO IVCON Radiology Routine Lung nodules 1 Occurrences starting 08/16/2024 until 09/15/2025 [facility] Work Phone: Comment on above: 1 Occurrences starti ng 08/16/2024 until 09/15/2025 CYTOLOGY NON-SEMI CONDUCTOR ASSEMBLER CYTOLOGY NON-GY N Lab Routine Multiple thyroid nodules 11/16/2023 4:06 PM EDT [facility] Work Phone: End: 05-11-2025 ECG COMPLETE ECG COMPLETE ECG Routine Pulmonary hypertension, unspecified (HCC) 1 Occurrences starting 05/11/2024 until 05/11/2025 [facility] Work Phone: Comment on above: 1 Occurrences starti ng 05/11/2024 until 05/11/2025 Eosinophils/100 leukocytes in Blood by Automated count [facility] Erythrocyte distribu tion width [Ratio] by Automated count [facility] Erythrocytes [#/volu me] in Blood [facility] Fluoroscopy of esophagus Fir [facility] Globulin [Mass/volum e] in Serum [facility] Hematocrit [Volume Fraction] of Blood [facility] Hemoglobin [Mass/vol ume] in Blood [facility] HOLTER MONITOR 48 HOUR HOLTER MO NITOR 48 HOUR ECG Routine Palpitations Pulmonary hypertension (HCC) 07/31/2024 2:18 PM EDT [facility] Work Phone: Leukocytes [#/volume ] corrected for nucleated erythrocytes in Blood by Automated coun [facility] Leukocytes [#/volume ] in Blood [facility] LUNG DIFFUSION CAPAC ITY (DLCO) LUNG DIFFUSION CAPACITY (DLCO) PFT Routine Primary pulmonary hypertension (HCC) Ordered: 07/04/2024 [facility] Comment on above: Ordered: 07/04/2024 LUNG VOLUMES LUNG VOLUMES PFT Routine Primary pulmonary hypertension (HCC) Ordered: 07/04/2024 [facility] Comment on above: Ordered: 07/04/2024 Lymphocytes [#/volum e] in Blood by Automated count [facility] Lymphocytes/100 leukocytes in Blood by Automated count [facility] MCH [Entitic mass] b y Automated count [facility] MCHC [Mass/volume] b y Automated count [facility] MCV [Entitic volume] by Automated count [facility] Monocytes [#/volume] in Blood by Automated count [facility] Monocytes/100 leukoc ytes in Blood by Automated count [facility] Neutrophils [#/volum e] in Blood by Automated count [facility] Neutrophils/100 leukocytes in Blood by Automated count [facility] End: 08-03-2025 NM Lung Ventilation and Perfusion NM LUNG VENT / PERF VQ Radiology Routine Primary pulmonary hypertension (HCC) 1 Occurrences starting 07/04/2024 until 08/03/2025 [facility] Comment on above: 1 Occurrences starti ng 07/04/2024 until 08/03/2025 Nucleated erythrocyt es [Presence] in Blood by Automated count [facility] Pathology Report Pathology Repor t Pathology and Cytology Routine Thickened endometrium Ordered: 09/11/2024 [place] Work Phone: Comment on above: Ordered: 09/11/2024 Patient referral [facility] Work Phone: Platelet mean volume [Entitic volume] in Blood by Automated count [facility] Platelets [#/volume] in Blood [facility] SENDOUT TEST MISCELLANEOUS [facility] SENDOUT TEST MISCELLANEOUS [facility] Lab Routine Screening for malignant neoplasm of cervix Ordered: 01/12/2024 [place] Work Phone: Comment on above: Ordered: 01/12/2024 SIX MINUTE WALK SIX MINUTE WALK PFT Routine Primary pulmonary hypertension (HCC) Ordered: 07/04/2024 [facility] Comment on above: Ordered: 07/04/2024 SPIROMETRY WITH DILA TOR IF OBSTRUCTED SPIROMETRY WITH DILATOR IF OBSTRUCTED PFT Routine Primary pulmonary hypertension (HCC) Ordered: 07/04/2024 [facility] Work Phone: Comment on above: Ordered: 07/04/2024 Thyroglobulin Ab [Units/volume] in Serum or Plasma [facility] Thyroperoxidase Ab [Units/volume] in Serum or Plasma [facility] End: 04-20-2024 Us soft tissue head & neck real time imge docm US THYROID/PARATHYROID Radiology Routine Multiple thyroid nodules 1 Occurrences starting 03/22/2023 until 04/20/2024 [facility] Work Phone: Comment on above: 1 Occurrences starti ng 03/22/2023 until 04/20/2024 VLDL cholesterol measurement [facility] End: 08-03-2025 XR Chest PA and Lateral XR CHEST 2V FRONTAL/LAT Radiology Routine Primary pulmonary hypertension (HCC) 1 Occurrences starting 07/04/2024 until 08/03/2025 [facility] Comment on above: 1 Occurrences starti ng 07/04/2024 until 08/03/2025 [facility] SP OR Immunizations Immunization Date Immunization Notes Care Provider Juanita hurd 04-08-2022 tetanus toxoid, reduced diphtheria toxoid, and acellular pertussis vaccine, adsorbed DO Gautam Dill Work Phone: [facility] NEGATED: Highlighted row has not occurred!06-05-2019 influenza, seasonal, injectable Patient Objection Gautam Dill Other [facility] Payers Date Payer Category Payer Self-pay [id number] 2017 Medicare [id number] 2017 Medicare (Managed Care) 1.2. [id number] 1965 Unknown [id number] 2.16.84 [id number] 1965 Unknown [id number] 2.16.84 [id number] 1965 Unknown [id number] 2.16.84 0.1.057942.3.579.2.593 1965 Unknown [id number] 2.16.84 0.1.497372.3.579.2.1259 1965 Unknown [id number] 2.16.84 0.1.793021.3.579.2.1259 1965 Unknown [id number] 2.16.84 0.1.582626.3.579.2.1259 1965 Unknown [id number] 2.16.84 0.1.656961.3.579.2.1259 1965 Unknown [id number] 2.16.84 0.1.426012.3.579.2.1259 1965 Unknown [id number] 2.16.84 0.1.524787.3.579.2.1259 1965 Unknown [id number] 2.16.84 0.1.613060.3.579.2.1259 1959 Private Health Insurance [id number] Unknown [id number] 2.16.8 [id number] Unknown [id number] 2.16.8 40.1.376777.3.579.2.531 Unknown [id number] 2.16.8 40.1.492575.3.579.2.531 Unknown [id number] 2.16.8 40.1.411214.3.579.2.531 Unknown [id number] 2.16.8 40.1.446087.3.579.2.531 Unknown [id number] 2.16.8 [id number] Social History Date Type Detail Facility Unknown if ever smoked [employer] Other Start: 05-23-2018 End: 08-08-2023 Sex Assigned At [facility] Start: 1965 Sex Assigned At Female F [facility] Start: 03-11-2014 End: 07-12-2024 Tobacco smoking status CTIS Never smoked tobacco [facility] Start: 03-11-2014 End: 12-21-2022 Tobacco use and exposure Smokeless tobacco non-user [facility] Start: 05-23-2018 End: 10-08-2024 Alcohol intake Current non-drinker of alcohol (finding) [facility] Start: 05-23-2018 End: 08-08-2023 History of Social function [facility] National Score (1-100), lower number is lower risk Not on file [facility] Start: 1965 Sex Assigned At Not on file [facility] Start: 01-12-2024 End: 09-11-2024 Alcoholic beverage intake Ex-drinker (finding) [facility] Start: 07-21-2022 Gender identity Identifies as female gender (finding) [facility] Start: 07-17-2024 End: 09-15-2024 Sex Female (finding) [facility] Goals Date Patient Goal Desired Activity /State Personal health goal Functional Status Date Assessment Result Facility 11-25-2014 Are you deaf, or do you have serious difficulty hearing No 11/25/2014 2:54 PM EDT Ashwini Stevens MA No [facility] 11-25-2014 Are you blind, or do you have serious difficulty seeing, even when wearing glasses No 11/25/2014 2:54 PM EDT Ashwini Stevens MA No [facility] 11-25-2014 Do you have serious difficulty walking or climbing stairs No 11/25/2014 2:54 PM EDT Ashwini Stevens MA No [facility] 11-25-2014 Do you have difficul ty dressing or bathing No 11/25/2014 2:54 PM EDT Ashwini Stevens MA No [facility] 11-25-2014 Because of a physica l, mental, or emotional condition, do you have difficulty doing errands alone such as visiting a physician's office or shopping No 11/25/2014 2:54 PM EDT Ashwini Stevens MA [facility] Mental Status Date Assessment Result Facility 11-25-2014 Because of a physica l, mental, or emotional condition, do you have serious difficulty concentrating, remembering, or making decisions No 11/25/2014 2:54 PM EDT Ashwini Stevens MA [facility] Clinical Notes 12-26-2014 to 10-08-2024 Patient InstructionsAries Flores, ATHLETIC DIRECTOR - 10/08/2024 2:47 PM EDTCAries barraza, ATHLETIC DIRECTOR - 10/08/2024 2:47 PM EDAmanda Hernandez, - 10/08/2024 2:38 PM EDTPatient InstructionsPatient Instructions Note Date & Type Note Facility 10-08-2024 Instructions Amanda Moreno DO - 10/08/2024 3:12 PM [...] lung tissue, normal-sized blood vessels, and no signs of interstitial lung disease or pulmonary hypertension. - [...] history: - You have a history of Graves disease and thyroid nodules, but your thyroid levels have been normal recently. No current treatment is needed for your thyroid. No additional follow-up testing or imaging is required at this time. Please continue your current medications and monitor your symptoms. If you have any new or worsening concerns, contact our office. documented in this encounter [facility] 10-08-2024 Note HNO ID: [id number] Author: YAIR HILL MD Service: ? Author Type: Registered Resp Therapist Type: Procedures Filed: 10/08/2024 14:53 Note Text: RESPIRATORY THERAPY SIX MINUTE WALK TEST OXIMETRY [...] None SIGNATURE: Aries Flores RRT PATIENT NAME: Iris Thomason DATE: October 08, [...] made appropriate revisions as needed. SIGNATURE: Yair Hill MD PATIENT NAME: Iris Thomason DATE: October 08, 2024 TIME: 2:53 PM [facility] 10-08-2024 Procedure note Associated Ord er(s): SIX MINUTE WALK RESPIRATORY THERAPY SIX MINUTE [...] None SIGNATURE: Aries Flores RRT PATIENT NAME: Iris Thomason DATE: October 08, [...] made appropriate revisions as needed. SIGNATURE: Yair Hill MD PATIENT NAME: Iris Thomason DATE: October 08, 2024 TIME: 2:53 PM [facility] 10-08-2024 Procedure note Associated Ord er(s): SIX MINUTE WALK RESPIRATORY THERAPY SIX MINUTE [...] None SIGNATURE: Aries Flores RRT PATIENT NAME: Iris Thomason DATE: October 08, [...] made appropriate revisions as needed. SIGNATURE: Yair Hill MD PATIENT NAME: Iris Thomason DATE: October 08, 2024 TIME: 2:53 PM documented in this encounter [facility] 10-08-2024 Note HNO ID: [id number] Author: AMANDA MORENO DO Service: ? Author Type: Physician Type: Progress Notes Filed: 10/08/2024 15:25 Note Text: PULMONARY HYPERTENSION CLINIC Initial Visit October 08, 2024 I had the pleasure of seeing Iris Thomason in consultation at the request of Amanda Moreno for Pulmonary Hypertension. Summary of this visit and my recommendations will be relayed to the referring physician by way of electronic communication or by mail. PCP: Gautam Dill DO Referring Provider: Amanda Moreno Subjective: I had the pleasure of seeing Iris Thomason in consultation for continued evaluation and and management of Pulmonary Hypertension. Summary of this visit and my recommendations will be relayed to the referring physician and primary care physician by way of electronic communication or by mail. Following HPI dictated by [employer] software. HPI: Iris is a 59-year-old female with a history of POTS, presenting for evaluation of pulmonary hypertension and dyspnea. Iris reports a history of dyspnea and fatigue over the past year, with episodes of needle pain in the ear beginning in January while at a store. She was evaluated at [facility] in February, where an EKG was performed. Initial results were reported as normal, but she was later informed of abnormalities. She expresses dissatisfaction with the care received at [facility], citing poor communication and delays in test results. She underwent an echocardiogram, which initially suggested elevated pressures but was reportedly normal on repeat testing. She was referred for evaluation of pulmonary hypertension by her maintenance mechanic elevators, Dr. Fink, who discussed the possibility of a heart catheterization to measure pressures. Currently, she experiences mild dyspnea with activities such as walking, seeing eye dog teacher, and climbing stairs. She can walk a city block but notes mild dyspnea afterward. She denies orthopnea, lower extremity edema, or abdominal swelling. She reports occasional lightheadedness and near-syncope, particularly when rising quickly, but denies complete syncope. These symptoms have been present for years and were part of her initial evaluation for POTS approximately 20 years ago. She was previously evaluated at the [facility], where it was suggested that her body [...] nearly 2 years. She underwent spirometry at [facility] in June, with normal results. She also [...] brown pain, spasms Other Reaction(s): Spasm Other (more content not included)... [facility] 10-08-2024 History of Present illness Narrative Images from the original note were not included. PULMONARY HYPERTENSION CLINIC Initial Visit October 08, 2024 I had the pleasure of seeing Iris Thomason in consultation at the request of Amanda Moreno for Pulmonary Hypertension. Summary of this visit and my recommendations will be relayed to the referring physician by way of electronic communication or by mail. PCP: Gautam Dill DO Referring Provider: Amanda Moreno Subjective: I had the pleasure of seeing Iris Thomason in consultation for continued evaluation and and management of Pulmonary Hypertension. Summary of this visit and my recommendations will be relayed to the referring physician and primary care physician by way of electronic communication or by mail. Following HPI dictated by [employer]. HPI: Iris is a 59-year-old female with a history of POTS, presenting for evaluation of pulmonary hypertension and dyspnea. Iris reports a history of dyspnea and fatigue over the past year, with episodes of needle pain in the ear beginning in January while at a store. She was evaluated at [facility] in February, where an EKG was performed. Initial results were reported as normal, but she was later informed of abnormalities. She expresses dissatisfaction with the care received at [facility], citing poor communication and delays in test results. She underwent an echocardiogram, which initially suggested elevated pressures but was reportedly normal on repeat testing. She was referred for evaluation of pulmonary hypertension by her maintenance mechanic elevators, Dr. Fink, who discussed the possibility of a heart catheterization to measure pressures. Currently, she experiences mild dyspnea with activities such as walking, seeing eye dog teacher, and climbing stairs. She can walk a city block but notes mild dyspnea afterward. She denies orthopnea, lower extremity edema, or abdominal swelling. She reports occasional lightheadedness and near-syncope, particularly when rising quickly, but denies complete syncope. These symptoms have been present for years and were part of her initial evaluation for POTS approximately 20 years ago. She was previously evaluated at the [facility], where it was suggested that her body [...] nearly 2 years. She underwent spirometry at [facility] in June, with normal results. She also [...] HIV No results found for: HIVSCN , [id number] ] Hepatitis B Surface Antigen No results [...] 03/11/2014 PLT 221 03/11/2014 Assessment and Plan: Iris Thomason is a 59 year old female who presents for evaluation of pulmonary hypertension with previous history of POTS, polyneuropathy?, HTN, Graves Disease, and HTN. PFT including spirometry/lung volumes/DLCO were essentially normal from 06/2024 at [facility]. DLCO mildly reduced 67% predicted corrected for [...] this time All questions were answered to Iris Thomason's satisfaction, Iris Thomason verbalizes understanding and agrees with treatment plan and was encouraged to contact me with questions. All documentation above reflects my independent exam and review. I saw and examined this patient myself. Pertinent portions of the HPI, ROS, objective findings and assessment/plan may have been copied from my previous clinical documentation however pertinent changes have been made and documented today. Amanda Moreno DO [facility] October 0852:38 PM documented in this encounter [facility] 10-05-2024 Instructions Wing Farrell, COLLABORATIVE TEACHER.DYE HOUSE VAT WORKER - 10/05/2024 12:59 PM EDT Images from [...] border that appears nodular but is likely due to atelectasis (a condition where small air sacs [...] scarring, I will notify you, and no further follow-up will be needed. If the radiologist recommends monitoring, we will proceed with the 3-month scan as planned. - You do not need to take any specific action at this time. I will contact you once the radiologist finalizes their report. Your care plan includes: - [...] cause any symptoms? In general, small nodules don t cause any noticeable problems. They re too small to cause pain or breathing problems. Should I worry that I have a nodule? Most nodules are not cancer, but for a small number of people the nodule may turner in to be an early cancer. Your doctor [...] cancer? Fewer than 5% of all nodules turner in to be cancer What if my nodule is lung cancer? Even if a nodule turns out to be lung cancer, it is likely to be an early stage lung cancer. People with early stage lung cancer that is treated are less likely to than people who are diagnosed at a later stage when the cancer has started to cause symptoms. What will happen next? Your healthcare team will probably recommend getting more CT scans to keep a close eye on the nodule to see if it changes. We call this active surveillance. ? If a nodule is not cancer, it usually won t grow. If the nodule doesn t grow over a 2-year period, it is very unlikely to be cancer. Most of the time, it is safe to stop watching nodules if there is no growth over a 2-year period. ? On the other hand, if the nodule is getting bigger, it should be looked at more closely to see if it is lung cancer. Nodules can be viewed more closely using different radiology studies or by biopsy (using a needle or surgery to take a sample of the nodule to look at under a microscope). Your healthcare team will determine which is best for you. Why shouldn t I get a biopsy now? ? A [...] them to get bigger. So even if the nodule is lung cancer, it will likely still [...] the best plan for you. What if I m am still smoking cigarettes? Quitting now will decrease your chance of getting lung cancer in the future, as well as many other serious health problems like emphysema and heart disease. Some people think that if they already have lung cancer, they might as well keep smoking. THAT IS WRONG. ATS Patient Education Series 2016 [place] [employer] Lung Nodule [facility] [address] [place] [address] A-[address] [facility] [id number] F: Specialist Providers: Chelsea Lester PA-C; Pema Martin CNP; Tasha Ho CNP, Sanjuana Voss CNP; Michelle Lam CNP; Tina Dugan PA-C; Angela Ro CNP; Linda Osman CNP; Cherelle Gutierrez CNP; Jessie Verdugo CNP; Keiko Ott PA-C; Genet Titus PA-C; Kelsi Carter DYE HOUSE VAT WORKER; Corinne Douglas DYE HOUSE VAT WORKER; Carla Smith CNP; Wing Farrell CNP documented in this encounter [facility] 10-05-2024 Note HNO ID: [id number] Author: WING FARRELL APRN.CNP Service: ? Author Type: Nurse Practitioner Type: Progress Notes Filed: 10/05/2024 16:43 Note Text: [facility] INCIDENTAL LUNG NODULE PROGRAM (Follow Up) Impression [...] further evaluation discussed in detail with patient. Iris Thomason expressed understanding and is in agreement with plan. Follow Up Diagnosis: Lung Nodule Recommendation: CT Scan Enrolled in Lung Nodule program: Completed Lung Nodule Program Location: [facility] -- History of Present Illness Iris Thomason is a 59 year old female No history of tobacco abuse with a pertinent past medical history significant for hypothyroidism, POTS, chronic fatigue syndrome, hyperkinetic heart syndrome, pulm HTN, benign thyroid nodules, autonomic dysfunction, palpitations who is being seen as a follow up for evaluation of a lung nodule(s). Patient [...] duty. - 2/2 fatigue Modified Medical Research [place] Dyspnea Scale (MMRC) I get short of [...] 03/22/2014 Dr. Blanton: hysteroscopy, polypectomy LAPS ABD PRTMANDOMENTUM DX W/WO SPEC BR/WA SPX 1996 endometriosis PAST SURGICAL HISTORY OF reval implant for heart- inserted and removed PAST SURGICAL HISTORY OF 1995 [facility] SKIN BX, 1 LESION facial TOOTH ROOT REMOVAL wisdom teeth (more content not included)... [facility] 10-05-2024 History of Present illness Narrative Images from the original note were not included. [facility] INCIDENTAL LUNG NODULE PROGRAM (Follow Up) Impression [...] further evaluation discussed in detail with patient. Iris Thomason expressed understanding and is in agreement with plan. Follow Up Diagnosis: Lung Nodule Recommendation: CT Scan Enrolled in Lung Nodule program: Completed Lung Nodule Program Location: [facility] History of Present Illness Iris Thomason is a 59 year old female No history of tobacco abuse with a pertinent past medical history significant for hypothyroidism, POTS, chronic fatigue syndrome, hyperkinetic heart syndrome, pulm HTN, benign thyroid nodules, autonomic dysfunction, palpitations who is being seen as a follow up for evaluation of a lung nodule(s). Patient [...] duty. - 2/2 fatigue Modified Medical Research [place] Dyspnea Scale (MMRC) I get short of [...] 03/07/2018 (Exact Date) SpO2 99% BMI 30.84 kg/m General Appearance: Alert and oriented. No acute [...] placed at the beginning of this note. ------ Wing Farrell APRN.CNP Pulmonary & Critical Care Medicine [facility] October 05, 2024 12:16 PM CC: Gautam Dill DO documented in this encounter [facility] 10-05-2024 Note HNO ID: [id number] Author: BLAS JOSE RT(Rashida) Service: ? Author Type: Technologist Type: Progress Notes Filed: 10/05/2024 11:45 Note Text: Radiology Service Progress Note PATIENT NAME: Iris Thomason DATE OF SERVICE: October 05, 2024 TIME: 11:45 AM PATIENT IDENTITY VERIFICATION COMPLETED USING TWO (2) IDENTIFIERS: Name and Date of confirmed by patient verbally. FALL SCREENING: Has the patient had 2 falls in the last year or 1 fall with injury or currently using an Ambulatory Assistive Device (Walker, Cane, Wheelchair, Crutches, etc.)? No PATIENT GENDER DATA: Assigned female at . status: : No status: NO. PATIENT RELEVANT IMPLANT DATA REVIEWED: Not Applicable PATIENT PRESENTS WITH AN IMPLANTABLE OR ATTACHED FOOD SERVICE CLERK: No RADIOLOGY DEPARTMENT: CT; Exam(s) Completed: Chest PERIPHERAL IV DATA: Not applicable SIGNED BY: RT Jenny(R) October 05, 2024 11:45 AM [facility] 10-05-2024 History of Present illness Narrative Radiology Service Progress Note PATIENT NAME: Iris Thomason DATE OF SERVICE: October 05, 2024 TIME: 11:45 AM PATIENT IDENTITY VERIFICATION COMPLETED USING TWO (2) IDENTIFIERS: Name and Date of confirmed by patient verbally. FALL SCREENING: Has the patient had 2 falls in the last year or 1 fall with injury or currently using an Ambulatory Assistive Device (Walker, Cane, Wheelchair, Crutches, etc.)? No PATIENT GENDER DATA: Assigned female at . status: : No status: NO. PATIENT RELEVANT IMPLANT DATA REVIEWED: Not Applicable PATIENT PRESENTS WITH AN IMPLANTABLE OR ATTACHED FOOD SERVICE CLERK: No RADIOLOGY DEPARTMENT: CT; Exam(s) Completed: Chest PERIPHERAL IV DATA: Not applicable SIGNED BY: RT Jenny(R) October 05, 2024 11:45 AM documented in this encounter [facility] 10-04-2024 Telephone encounter Note The patient contacted us, indicating that one of our nurses had advised her against undergoing the VQ Lung Scan, as she has already completed two of these tests. The patient stated that these tests were performed at [facility] at the beginning of the year. The patient can be reached at [phone]. She is seeking clarification regarding her appointment and is inquiring whether it is necessary to repeat the test. [facility] 10-04-2024 Miscellaneous Notes The patient contacted us, indicating that one of our nurses had advised her against undergoing the VQ Lung Scan, as she has already completed two of these tests. The patient stated that these tests were performed at [facility] at the beginning of the year. The patient can be reached at [phone]. She is seeking clarification regarding her appointment and is inquiring whether it is necessary to repeat the test. documented in this encounter [facility] 10-03-2024 Instructions Lorenzo Lora MD - 10/03/2024 9:38 AM EDT - Consult interventional cardiology - Dr Sotero Quan. - Consult [facility] - Dr Priyank Coles. - Follow up with us as needed. documented in this encounter [facility] 10-03-2024 Note HNO ID: [id number] Author: LORENZO LORA MD Service: ? Author Type: Physician Type: Progress Notes Filed: 10/03/2024 09:40 Note Text: [facility] Department of Cardiovascular Medicine VIRTUAL VIDEO VISIT ESTABLISHED OUTPATIENT VISIT SERVICE DATE: 10/03/2024 Patient: Iris Thomason SERVICE TIME: 9:05 AM : 1965 This is a virtual video visit. It required patient-provider interaction for the medical decision making as documented below. Iris Thomason has consented to this video encounter. I have communicated my name and active licensure. The patient's identity and physical location were verified at the time of this visit. Either the patient or their legal merchandiser retail representative has been informed of the risks and benefits of -- and alternatives to -- treatment through a remote evaluation and consents to proceed with the evaluation remotely. Iris Thomason is a 59 year old female seen for follow up. CHIEF COMPLAINT Follow up HISTORY OF PRESENT ILLNESS We had the pleasure of seeing Ms Thomason today in our cardiology clinic. She is a pleasant 59 yo woman with history of pulmonary hypertension, autonomic dysfunction, and graves disease. She is presenting for follow up. Palpitations moderate in intensity, worse when laying, without relieving factors, no associated symptoms, coming several times per week. Prior 3 day holter with nsVT ?, now with PACs. Otherwise, she endorses on/off NYHA class II/III exertional SOB with over exertion, without GERARDO, presyncope, or syncope. Had some chest tingling and stress testing reportedly negative. TTE with mild PH, follow up TTE with normal PA pressures. Is wanting to see new EP at [facility] for POTS. 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 Blanton: hysteroscopy, polypectomy - LAPS ABD PRTMANDOMENTUM DX W/WO SPEC BR/WA SPX 1996 endometriosis - PAST SURGICAL HISTORY OF reval implant for heart- inserted and removed - PAST SURGICAL HISTORY OF 1995 [facility] - SKIN BX, 1 LESION facial - TOOTH ROOT REMOVAL wisdom teethe removed FAMILY HISTORY Problem Relation Age of Onset - Heart Mother - Arrythmias Mother afib - other (pulmonary embolism [Other]) Mother - Prostate Cancer Father - Arrythmias Maternal Grandmother afib - Heart Failure Maternal Grandmother - Sudden Cardiac Paternal Grandfather - Heart Attack Paternal Grandfather - Arrythmias Maternal Aunt afib - Breast Cancer Paternal Aunt Social History Tobacco Use - Smoking status: Never - Smokeless tobacco: Never Vaping Use - Vaping status: Never Used Substance Use Topics - Alcohol use: No - Drug use: No ALLERGIES Allergen Reactions - Contrast Dye Other: See Comments chest pain , increased HR, increased BP - Azithromycin GI Upset Severe diarrhea - Budesonide-Formoter* Other: See Comments - Celecoxib Other: See Comments Other Reaction(s): Unknown - Cephalosporins Unknown - Clavulanic Acid Diarrhea Other Reaction(s): diarrhea - Clonidine Other: See Comments Other Reaction(s): Spasm Other Reaction(s): eye brown pain, spasms Other Reaction(s): Spasm Other Reaction(s): eye brown pain, spasms - Flagyl [Metronidazo* Diarrhea Had diarrhea and dizziness and funny feeling in head and arms - Latex Other: See Comments - Levofloxacin Diarrhea, Other: See Comments Other Reaction(s): Unknown - Methylprednisolone GI Upset, Other: See Comments Other Reaction(s): Unknown - Morphine Other: See Comments CHEST PAIN AND INCREASED BLOOD PRESSURE - Nitrofurantoin Other: See Comments - Oxybutynin Other: See Comments Other Reaction(s): other, Unknown - Penicillins GI Upset Severe diarrhea - Sulfa (Sulfonamide * Itching, Other: See Comments Other Reaction(s): itching - Tape [Adhesive Tape* Other: See Comments blisters - Trimethoprim Itching Other Reaction(s): itching CURRENT MEDICATIONS - Cholecalciferol, Vitamin D3, 50 mcg (2,000 unit) cap Take 2 capsules by mouth once daily. - MAGNESIUM GLYCINATE ORAL Take 240 mg by mouth once daily. High absorption - mv-min/iron/folic/calcium/vitK (WOMEN'S MULTIVITAMIN ORAL) Take 1 tablet by mouth once daily. - acetaminophen (TYLENOL 8 HOUR ORAL) Take by mouth as needed. - ibuprofen (MOTRIN) 600 mg (more content not included)... [facility] 10-03-2024 History of Present illness Narrative [facility] Department of Cardiovascular Medicine VIRTUAL VIDEO VISIT ESTABLISHED OUTPATIENT VISIT SERVICE DATE: 10/03/2024 Patient: Iris Thomason SERVICE TIME: 9:05 AM : 1965 This is a virtual video visit. It required patient-provider interaction for the medical decision making as documented below. Iris Thomason has consented to this video encounter. I have communicated my name and active licensure. The patient's identity and physical location were verified at the time of this visit. Either the patient or their legal merchandiser retail representative has been informed of the risks and benefits of -- and alternatives to -- treatment through a remote evaluation and consents to proceed with the evaluation remotely. Iris Thomason is a 59 year old female seen for follow up. CHIEF COMPLAINT Follow up HISTORY OF PRESENT ILLNESS We had the pleasure of seeing Ms Thomason today in our cardiology clinic. She is a pleasant 59 yo woman with history of pulmonary hypertension, autonomic dysfunction, and graves disease. She is presenting for follow up. Palpitations moderate in intensity, worse when laying, without relieving factors, no associated symptoms, coming several times per week. Prior 3 day holter with nsVT ?, now with PACs. Otherwise, she endorses on/off NYHA class II/III exertional SOB with over exertion, without GERARDO, presyncope, or syncope. Had some chest tingling and stress testing reportedly negative. TTE with mild PH, follow up TTE with normal PA pressures. Is wanting to see new EP at [facility] for POTS. PAST MEDICAL HISTORY Diagnosis Date Autoimmune disease [...] Maternal Aunt afib Breast Cancer Paternal Aunt Social History Tobacco Use Smoking status: Never Smokeless tobacco: Never Vaping Use Vaping status: Never Used Substance Use Topics Alcohol use: No Drug use: No ALLERGIES Allergen Reactions Contrast Dye Other: See [...] Comments blisters Trimethoprim Itching Other Reaction(s): itching CURRENT MEDICATIONS Cholecalciferol, Vitamin D3, 50 mcg (2,000 unit) cap Take 2 capsules by mouth once daily. MAGNESIUM GLYCINATE ORAL Take 240 mg by mouth once daily. High absorption mv-min/iron/folic/calcium/vitK (WOMEN'S MULTIVITAMIN ORAL) Take 1 tablet by mouth once daily. acetaminophen (TYLENOL 8 HOUR ORAL) Take by mouth as needed. ibuprofen (MOTRIN) 600 mg tablet Take 1 tablet by mouth every 6 hours as needed for Pain. Take with food. (Patient taking differently: Take 800 mg by mouth every 6 hours as needed for pain.) gabapentin (NEURONTIN) 100 mg capsule Take 1 [...] population = 50. Five points is a clinically meaningful difference.) Physical T-Score 37.4 Mental T-Score 45.8 [...] breath and flutters. Scanned on 08/08/2024 Jennifer Rodriguez [facility] 07/31 TTE CONCLUSIONS: - Exam indication: PHTN [...] 4 - Moderate documented in this encounter [facility] 09-11-2024 History of Present illness Narrative Associated Order(s): Endometrial biopsy Post-Procedure Diagnose(s): Thickened endometrium Images from the original note were not included. Keiko Cordova D.O. Obstetrics and Gynecology Patient: Iris Thomason : 1965 (59 y.o.) Exam Date: 09/11/2024 Reason for Visit - Chief Complaint Patient presents with Procedure Pt presents for EMB. Pt request Urine dip. Was not able to get enough urine for dip stick. Denies iodine allergy. Denies vaginal bleeding/spotting. Visit Vitals BP 120/72 Wt 193 lb BMI 30.23 kg/m OB Status Premenopausal Smoking Status Never BSA 2.03 m Allergies Allergen Reactions Iodinated Contrast Media [...] Comments Pap 12/21/22- Neg Mammogram 03/23/22- Neg [place] U/S 08/02/23: endometrial thickness measures 6.4 mm, [...] Review Audit Reviewed by Marilee Cr MA (Development Lead) on 09/11/24 at 0905 Medication Order Taking? Sig Documenting Provider Last Dose Status Discontinued 09/11/24 0904 esomeprazole (NexIUM) [address] capsule [id number] Take 20 mg by mouth in the morning. Take before meals. Do not open capsule.. Delores Cantor, DO Active gabapentin (Neurontin) 100 MG capsule [id number] Take 100 mg by mouth in the morning and 100 mg before bedtime. Historical Provider, Active loperamide (Imodium A-D) 2 MG tablet [id number] Take 2-4 mg by mouth 4 (four) times a day as needed for diarrhea Delores Cantor DO Active magnesium 200 MG tablet [id number] Take by mouth Keiko Cordova DO Active Discontinued 09/11/24 0904 nebivolol (Bystolic) 5 MG tablet [id number] Take 2.5 mg by mouth in the [...] Hysteroscopy with polypectomy, directed D&C using TRUCLEAR [employer] morcellator (Dr Blanton) EXPLORATORY LAPAROTOMY 1996 D&C for endometriosis HYSTEROSCOPY W/ POLYPECTOMY 2017 Removal of nebothian cyst, pap smear, Hysteroscopy with polypectomy and visually guided d&c (Dr. Blanton) IR FINE NEEDLE ASPIRATION THYROID 05/2015 MOLE REMOVAL Right cheek TISSUE EXAM 09/11/2024 Family History Problem Relation Name Age of [...] Skin: Warm and dry Heart: Regular rate and rhythm, S1 and S2 normal, no murmur Lungs: Clear to auscultation bilaterally, respirations unlabored Abdomen: Soft, non-tender, no masses, no organomegaly Extremities normal, atraumatic, no cyanosis or edema FEMALE GENITOURINARY: atrophic vaginal mucosa, cervix absent of lesions, nontender, uterus AV, mobile, ovaries nonpalpable and non tender Endometrial biopsy Date/Time: 09/11/2024 9:19 AM Performed [...] Patient tolerance: tolerated well, no immediate complications Diagnoses and all orders for this visit: Thickened endometrium - Pathology Report Dysuria - Urine culture Other orders - Endometrial biopsy Endometrial biopsy performed- will call with results. Pelvic rest for 24 hours. Patient to call with any heavy bleeding, worsening pain, or fevers. ICD-10-CM 1. Thickened endometrium R93.89 Pathology Report CANCELED: POCT urinalysis dipstick manually resulted 2. Dysuria R30.0 Urine culture documented in this encounter [facility] 08-16-2024 Note Addended by: WING FARRELL on: 08/16/2024 05:38 PM Modules accepted: Orders [facility] 08-16-2024 Miscellaneous Notes Addended by: WING FARRELL on: 08/16/2024 05:38 PM Modules accepted: Orders documented in this encounter [facility] 08-16-2024 Telephone encounter Note Please schedule patient for CT chest wo contrast and follow up with the lung nodule clinic team to review. Thank you, Wing [facility] 08-16-2024 Miscellaneous Notes Please schedule patient for CT chest wo contrast and follow up with the lung nodule clinic team to review. Thank you, Wign documented in this encounter [facility] 08-16-2024 Instructions Wign Farrell APRN.DYE HOUSE VAT WORKER - 08/16/2024 9:53 AM EDT Images from the original note were not included. Plan for follow-up: Your recent chest Xray showed a possible nodule in your left lower lung. Please schedule CT chest wo contrast to further evaluate and follow up with the lung nodule clinic team to review Frequently Asked Questions: How common are lung nodules? Nodules are found in up to half of adults who get a chest x-ray or CT scan. Do nodules cause any symptoms? In general, small nodules don t cause any noticeable problems. They re too small to cause pain or breathing problems. Should I worry that I have a nodule? Most nodules are not cancer, but for a small number of people the nodule may turner in to be an early cancer. Your doctor [...] cancer? Fewer than 5% of all nodules turner in to be cancer What if my nodule is lung cancer? Even if a nodule turns out to be lung cancer, it is likely to be an early stage lung cancer. People with early stage lung cancer that is treated are less likely to than people who are diagnosed at a later stage when the cancer has started to cause symptoms. What will happen next? Your healthcare team will probably recommend getting more CT scans to keep a close eye on the nodule to see if it changes. We call this active surveillance. ? If a nodule is not cancer, it usually won t grow. If the nodule doesn t grow over a 2-year period, it is very unlikely to be cancer. Most of the time, it is safe to stop watching nodules if there is no growth over a 2-year period. ? On the other hand, if the nodule is getting bigger, it should be looked at more closely to see if it is lung cancer. Nodules can be viewed more closely using different radiology studies or by biopsy (using a needle or surgery to take a sample of the nodule to look at under a microscope). Your healthcare team will determine which is best for you. Why shouldn t I get a biopsy now? ? A [...] them to get bigger. So even if the nodule is lung cancer, it will likely still [...] the best plan for you. What if I m am still smoking cigarettes? Quitting now will decrease your chance of getting lung cancer in the future, as well as many other serious health problems like emphysema and heart disease. Some people think that if they already have lung cancer, they might as well keep smoking. THAT IS WRONG. [employer] Patient Education Series 2016 [place] [employer] Lung [facility]od[facility] [address] [facility] [address] [facility] [address] F: Specialist Providers: Chelsea Lester PA-C; Pema Martin CNP; Tasha Ho CNP, Sanjuana Voss CNP; Michelle Lam CNP; Tina Dugan PA-C; Angela Ro CNP; Linda Osman CNP; Cherelle Gutierrez CNP; Jessie Verdugo CNP; Keiko Ott PA-C; Genet Titus PA-C; Kelsi Carter CNP; Corinne Douglas CNP; Carla Smith CNP documented in this encounter [facility] 08-16-2024 History of Present illness Narrative Images from the original note were not included. [facility] INCIDENTAL LUNG NODULE PROGRAM (Distance Health Visit) Impression / Recommendations 1. Lung nodule (Primary) 59 yr old female with no personal hx of malignancy and no FH of lung cancer. Known exposures include previous high level of radon in her home (remedied). CXR performed on 07/31/24 incidentally identified a questionable (appears in size) nodular opacity in the LLL lung, adjacent to the left lateral heart border. This may represent overlap of normal vascular and osseous structures vs pulmonary nodule. Recommend CT chest wo contrast to confirm that this finding does represent a lung nodule. Follow up with the Lung Nodule Clinic Team to review results and plan of care. 2. SOBOE (shortness of breath on exertion) Mild, started 1 year ago Follows with cardiology - recent eval with echo, holter monitor, ECG Scheduled to establish with pulmonary medicine provider in October after spirometry, 6MW and VQ scan Wnig Farrell APRN.CNP Pulmonary & Critical Care Medicine [facility] [place] August 16, 2024 Follow Up Diagnosis: Lung Nodule Recommendation: CT Scan Follow up Date: 08/20/2024 Follow-Up Scheduled: No Pulmonary Follow-Up Type: Lung Nodule Surveillance Enrolled in Lung Nodule program: Yes Lung Nodule Program Location: [facility] DISTANCE HEALTH VISIT NOTE I have communicated my name and active licensure. The patient's identity and physical location were verified at the time of this visit. Either the patient or their legal merchandiser retail representative has been informed of the risks and benefits of -- and alternatives to -- treatment through a remote evaluation and consents to proceed with the evaluation remotely. This is a virtual visit using [employer] Video Visit. It required patient-provider interaction for the medical decision making as documented below. History of Present Illness Iris Thomason is a 59 year old female with a pertinent past medical history significant for hypothyroidism, POTS, chronic fatigue syndrome, hyperkinetic heart syndrome, pulm HTN, benign thyoid nodules, autonomic dysfunction, palpitations, and No history of tobacco abuse who is being seen as a new consultation for evaluation of a lung nodule(s). Iris Thomason had a CXR performed on 07/31/24 for the indication of chronic cough and pulm HTN. 1 nodule was detected Incidentally. The nodule of greatest concern is a questionable nodular opacity with a Irregular border in the Left lower lobe of the lung, adjacent to the left lateral heart border. Radiologist fel that this finding could represent overlap of normal vascular and osseous structures or a pulmonary nodule. Prior imaging: (No) Recent URI, treated with Zpack then doxycycline - last dose today. Symptoms improved No daily respiratory medications Baseline mild exertional dyspnea. Has been undergoing evaluation with cardiology. Planned for spirometry, 6MW and VQ scan in October prior to consultation with pulmonary medicine provider Respiratory symptoms include: SOB: Mild with exertion since last summer Chest tightness: No Coughing: Yes: With mucus Clear - residual Hemoptysis: No Wheezing: No Fever/Chills: No Recent Respiratory Infection: Yes, head cold last week Unintentional weight loss: No Last 6 Encounter Wt Readings: Date: Wt: 07/04/2024 88.6 kg (195 lb 6.4 oz) 03/22/2023 89.8 kg (198 lb) 05/23/2018 90.7 kg (200 lb) 04/17/2018 88.5 kg (195 lb) 04/17/2018 90.3 kg (199 lb 1.2 oz) 04/17/2018 90.3 kg (199 lb) Modified Medical Research [place] Dyspnea Scale (MMRC) I get short of breath when hurrying on level ground or walking up a slight hill 1 Other Pertinent Clinical Risk Factors: Significant exposures (1 year or more of exposure): Radon. Recent travel history: No Animal exposure: Dog Second hand smoke exposure: No Does the patient have a prior history malignancy? No Does the patient have a family history of lung cancer? No Malignancy Risk ([facility]) Lung Nodule Calculator: Pending CT confirmation Problem List, History, Medications and allergies have been reviewed from the [facility]ractice electronic medical record and any appropriate up-dates have been made. VIDEO EXAM: (if completed, performed via video enabled technology) General Appearance: Alert and oriented. No acute distress. HEENT: Sclera anicteric. EOMI. Chest: No respiratory distress. Neuro: Speech fluent. Diagnostic Data I have personally visualized, reviewed and analyzed the findings on recent radiograph- Last CT/CTA Chest/Lungs No resulted procedures found. Impression / Recommendations To optimize physician communication via the electronic health record, the Impression & Recommendations section has been placed at the beginning of this note. ------ Wing Farrell APRN.CNP Pulmonary & Critical Care Medicine documented in this encounter [facility] 08-16-2024 Note HNO ID: [id number] Author: WING FARRELL APRN.CNP Service: ? Author Type: Nurse Practitioner Type: Progress Notes Filed: 08/16/2024 16:35 Note Text: [facility] INCIDENTAL LUNG NODULE PROGRAM (Distance Health Visit) Impression / Recommendations 1. Lung nodule (Primary) 59 yr old female with no personal hx of malignancy and no FH of lung cancer. Known exposures include previous high level of radon in her home (remedied). CXR performed on 07/31/24 incidentally identified a questionable (appears in size) nodular opacity in the LLL lung, adjacent to the left lateral heart border. This may represent overlap of normal vascular and osseous structures vs pulmonary nodule. Recommend CT chest wo contrast to confirm that this finding does represent a lung nodule. Follow up with the Lung Nodule Clinic Team to review results and plan of care. 2. SOBOE (shortness of breath on exertion) Mild, started 1 year ago Follows with cardiology - recent eval with echo, holter monitor, ECG Scheduled to establish with pulmonary medicine provider in October after spirometry, 6MW and VQ scan Wing Farrell, RADHA[facility] Pulmonary AND Critical Care Medicine [facility] [place] August 16, 2024 Follow Up Diagnosis: Lung Nodule Recommendation: CT Scan Follow up Date: 08/20/2024 Follow-Up Scheduled: No Pulmonary Follow-Up Type: Lung Nodule Surveillance Enrolled in Lung Nodule program: Yes Lung Nodule Program Location: [facility] -- DISTANCE HEALTH VISIT NOTE I have communicated my name and active licensure. The patient's identity and physical location were verified at the time of this visit. Either the patient or their legal merchandiser retail representative has been informed of the risks and benefits of -- and alternatives to -- treatment through a remote evaluation and consents to proceed with the evaluation remotely. This is a virtual visit using [employer] Video Visit. It required patient-provider interaction for the medical decision making as documented below. History of Present Illness Iris Thomason is a 59 year old female with a pertinent past medical history significant for hypothyroidism, POTS, chronic fatigue syndrome, hyperkinetic heart syndrome, pulm HTN, benign thyoid nodules, autonomic dysfunction, palpitations, and No history of tobacco abuse who is being seen as a new consultation for evaluation of a lung nodule(s). Iris Thomason had a CXR performed on 07/31/24 for the indication of chronic cough and pulm HTN. 1 nodule was detected Incidentally. The nodule of greatest concern is a questionable nodular opacity with a Irregular border in the Left lower lobe of the lung, adjacent to the left lateral heart border. Radiologist fel that this finding could represent overlap of normal vascular and osseous structures or a pulmonary nodule. Prior imaging: (No) Recent URI, treated with Zpack then doxycycline - last dose today. Symptoms improved No daily respiratory medications Baseline mild exertional dyspnea. Has been undergoing evaluation with cardiology. Planned for spirometry, 6MW and VQ scan in October prior to consultation with pulmonary medicine provider Respiratory symptoms include: SOB: Mild with exertion since last summer Chest tightness: No Coughing: Yes: With mucus Clear - residual Hemoptysis: No Wheezing: No Fever/Chills: No Recent Respiratory Infection: Yes, head cold last week Unintentional weight loss: No Last 6 Encounter Wt Readings: Date: Wt: 07/04/2024 88.6 kg (195 lb 6.4 oz) 03/22/2023 89.8 kg (198 lb) 05/23/2018 90.7 kg (200 lb) 04/17/2018 88.5 kg (195 lb) 04/17/2018 90.3 kg (199 lb 1.2 oz) 04/17/2018 90.3 kg (199 lb) Modified Medical Research [place] Dyspnea Scale (MMRC) I get short of breath when hurrying on level ground or walking up a slight hill 1 Other Pertinent Clinical Risk Factors: Significant exposures (1 year or more of exposure): Radon. Recent travel history: No Animal exposure: Dog Second hand smoke exposure: No Does the patient have a prior history malignancy? No Does the patient have a family history of lung cancer? No Malignancy Risk ([facility]) Lung Nodule Calculator: Pending CT confirmation Problem List, History, Medications and allergies have been reviewed from the MyPractice electronic medical record and any appropriate up-dates have been made. VIDEO EXAM: (if completed, performed via video enabled technology) General Appearance: Alert and oriented. No acute distress. HEENT: Sclera anicteric. EOMI. Chest: No respiratory distress. Neuro: Speech fluent. Diagnostic Data I have personally visualized, reviewed and analyzed the findings on recent radiograph- Last CT/CTA Chest/Lungs No resulted procedures found. Impression / Recommendations To optimize physician communication via the (more content not included)... [facility] 08-09-2024 Telephone encounter Note Patient called asking for results to be faxed to Dr Lora office at [facility] [phone]. Explained that provider can see results in the chart but she states she was told to have all the results faxed to the office. She also states that she needs to know what to do about the lung nodule. Please review and advise. [facility] 08-09-2024 Miscellaneous Notes Patient called asking for results to be faxed to Dr Lora office at [facility] - [phone]. Explained that provider can see results in the chart but she states she was told to have all the results faxed to the office. She also states that she needs to know what to do about the lung nodule. Please review and advise. Patient calling with lab result Patient denies any new or worsening symptoms of which a provider is not aware: Yes. Patient was conferenced to Sanjuana in Dr. Lora's office at [phone]. documented in this encounter [facility] 08-09-2024 Telephone encounter Note Patient calling with lab result Patient denies any new or worsening symptoms of which a provider is not aware: Yes. Patient was conferenced to Sanjuana in Dr. Lora's office at [phone]. [facility] 07-31-2024 Note HNO ID: [id number] Author: HEATHER GARCIA LPN Service: ? Author Type: LICENSED NURSE Type: Progress Notes Filed: 07/31/2024 14:50 Note Text: HOLTER MONITOR APPLICATION Iris Thomason [id number] present today for the placement of a holter monitor with a history of Palpitations, Pulmonary hypertension. The supervising physician is Dr. Michael Garcia for Lorenzo Lora MD. Chest is cleansed with alcohol Skin prep applied Electrodes place on chest and stress loops secured with tape Fresh battery inserted in monitor Holter monitor secured to patient with belt case Patient instructed on: 1.) Diary documentation 2.) Usage of event button 3.) Maintenance and care of monitor 4.) Safety issues with monitor 5.) Return unit in 48 hours to Cardiology Department drop box prior to 7:30pm on day of removal 6.) Call with problems [phone] Pt aware Holter monitor cannot be instantly viewed and advised pt to go to ER for worsened or severe symptoms. Equipment Return and financial responsibility form signed Patient expresses good verbal understanding of instructions Holter Monitor #:[id number] Holter start time:2:15 PM Heather Garcia LPN [facility] 07-31-2024 History of Present illness Narrative HOLTER MONITOR APPLICATION Iris Thomason [id number] present today for the placement of a holter monitor with a history of Palpitations, Pulmonary hypertension. The supervising physician is Dr. Michael Garcia for Lorenzo Lora MD. Chest is cleansed with alcohol Skin prep applied Electrodes place on chest and stress loops secured with tape Fresh battery inserted in monitor Holter monitor secured to patient with belt case Patient instructed on: 1.) Diary documentation 2.) Usage of event button 3.) Maintenance and care of monitor 4.) Safety issues with monitor 5.) Return unit in 48 hours to Cardiology Department drop box prior to 7:30pm on day of removal 6.) Call with problems [phone] Pt aware Holter monitor cannot be instantly viewed and advised pt to go to ER for worsened or severe symptoms. Equipment Return and financial responsibility form signed Patient expresses good verbal understanding of instructions Holter Monitor #:[id number] Holter start time:2:15 PM Heather Garcia LPN documented in this encounter [facility] 07-31-2024 Note HNO ID: [id number] Author: CA TUTTLE RT(Rashida) Service: ? Author Type: Technologist Type: Progress Notes Filed: 07/31/2024 13:21 Note Text: Radiology Service Progress Note PATIENT NAME: Iris Thomason DATE OF SERVICE: July 31, 2024 TIME: 1:21 PM PATIENT IDENTITY VERIFICATION COMPLETED USING TWO (2) IDENTIFIERS: Name and Date of confirmed by patient verbally. FALL SCREENING: Has the patient had 2 falls in the last year or 1 fall with injury or currently using an Ambulatory Assistive Device (Walker, Cane, Wheelchair, Crutches, etc.)? No PATIENT GENDER DATA: Assigned female at . status: : No status: NO. PATIENT RELEVANT IMPLANT DATA REVIEWED: Not Applicable PATIENT PRESENTS WITH AN IMPLANTABLE OR ATTACHED FOOD SERVICE CLERK: No RADIOLOGY DEPARTMENT: General X-ray: Exam(s) Completed: Chest X-Ray PERIPHERAL IV DATA: Not applicable SIGNED BY: RT Mukesh(Rashida) July 31, 2024 1:21 PM [facility] 07-31-2024 History of Present illness Narrative Radiology Service Progress Note PATIENT NAME: Iris Thomason DATE OF SERVICE: July 31, 2024 TIME: 1:21 PM PATIENT IDENTITY VERIFICATION COMPLETED USING TWO (2) IDENTIFIERS: Name and Date of confirmed by patient verbally. FALL SCREENING: Has the patient had 2 falls in the last year or 1 fall with injury or currently using an Ambulatory Assistive Device (Walker, Cane, Wheelchair, Crutches, etc.)? No PATIENT GENDER DATA: Assigned female at . status: : No status: NO. PATIENT RELEVANT IMPLANT DATA REVIEWED: Not Applicable PATIENT PRESENTS WITH AN IMPLANTABLE OR ATTACHED FOOD SERVICE CLERK: No RADIOLOGY DEPARTMENT: General X-ray: Exam(s) Completed: Chest X-Ray PERIPHERAL IV DATA: Not applicable SIGNED BY: RT Mukesh(Rashida) July 31, 2024 1:21 PM documented in this encounter [facility] 07-16-2024 Telephone encounter Note July 16, 2024 Name: Iris Thomason Patient Contact Number: [phone] (home) [phone] (cell) Date of last office visit: 07/04/2024 Reason For Call: patient calling in stating that she is having an endometrial biopsy on . Is this procedure okay to do due to the lab work that came back last week. Please advise Physician: Lorenzo Lora MD Patient was informed that non-urgent calls may be returned within the next three business days. Yes Deon Duron [facility] 07-16-2024 Miscellaneous Notes July 16, 2024 Name: Iris Thomason Patient Contact Number: [phone] (home) [phone] (cell) Date of last office visit: 07/04/2024 Reason For Call: patient calling in stating that she is having an endometrial biopsy on . Is this procedure okay to do due to the lab work that came back last week. Please advise Physician: Lorenzo Lora MD Patient was informed that non-urgent calls may be returned within the next three business days. Yes Deon Duron documented in this encounter [facility] 07-15-2024 Note Results of pulmonary function study performed 06/29/2024 at the [facility] Results of study became available to me 07/11/2024. PFT was of good quality, with impression: Normal spirometry and lung volumes, with an isolated mild diffusion impairment. This pattern can be seen in, but not restricted to, cardiopulmonary vascular disorders, early interstitial lung disease, and early emphysema. A previous DLCO was done 05/30/2024 which was not grossly changed from 70%. Clinical correlation required Above PFT was performed due to complaint of dyspnea and fatigue, with mildly elevated right ventricular systolic pressures, concerning for possible early pulmonary artery hypertension. This study does not conform with clinical diagnosis of pulmonary artery hypertension, but is concerning with reduced DLCO. Based on this I recommend formal evaluation by climatologist. Will have my staff contact patient regarding this. Since she lives near the [facility] area, will seek out climatologist in that area. Sylvia, please let patient know that there are no acute or serious findings on her pulmonary function test, but her DLCO readings (the crossover of oxygen into the bloodstream) was not completely normal. Because of this I would like her to see a climatologist for more complete pulmonary evaluation. If she has a climatologist she would like to use, I am glad to make a formal referral to him, otherwise I will ask the office staff at [facility] to locate a local provider specialist. Kind regards, JACLYN [facility] 07-09-2024 Miscellaneous Notes Referring physician: Guido Ventura Diagnosis: PH Are there epic records: Yes Are there care everywhere records: Yes Has a referral form been faxed: No Has patient been added to spreadsheet: No Routing: If records complete - route to [facility] for clinical team review. If records incomplete - please route to [facility] medical administrative specialist. documented in this encounter [facility] 07-09-2024 Telephone encounter Note Referring physician: Guido Ventura Diagnosis: PH Are there epic records: Yes Are there care everywhere records: Yes Has a referral form been faxed: No Has patient been added to spreadsheet: No Routing: If records complete - route to [facility] for clinical team review. If records incomplete - please route to [facility] medical administrative specialist. [facility] 07-09-2024 Telephone encounter Note July 09, 2024 Name: Iris Thomason Patient Contact Number: [phone] (home) [phone] (cell) Date of last office visit: 07/04/2024 Reason For Call: Pt called stating that she has done concerns about her recent lab result, and would like to speak with a nurse. Physician: Lorenzo Lora MD Patient was informed that non-urgent calls may be returned within the next three business days. Yes Rohini Day [facility] 07-09-2024 Miscellaneous Notes July 09, 2024 Name: Iris Thomason Patient Contact Number: [phone] (home) [phone] (cell) Date of last office visit: 07/04/2024 Reason For Call: Pt called stating that she has done concerns about her recent lab result, and would like to speak with a nurse. Physician: Lorenzo Lora MD Patient was informed that non-urgent calls may be returned within the next three business days. Yes Rohini Day documented in this encounter [facility] 07-06-2024 Telephone encounter Note Reached out to Emily Gonzalez to help schedule patient locally. Penny Oakley RN July 06, 2024 3:31 PM [facility] 07-06-2024 Miscellaneous Notes Reached out to Emily Gonzalez to help schedule patient locally. Penny Oakley RN July 06, 2024 3:31 PM July 05, 2024 Name: Iris Thomason Patient Contact Number: [phone] (home) [phone] (cell) Date of last office visit: 07/04/2024 Reason For Call: Other Issue: Patient went to yesterday to get holter monitor. They were not able to get insurance approval in time. Can she get it at one of the [facility] locations nearer to here like the [facility]? Iris Thomason is asking for someone to call her at [phone]. Physician: Lorenzo Lora MD Patient was informed that non-urgent calls may be returned within the next three business days. Yes Sanjuana Pardo documented in this encounter [facility] 07-06-2024 Telephone encounter Note July 06, 2024 Name: Iris Thomason Patient Contact Number: [phone] (home) [phone] (cell) Date of last office visit: 07/04/2024 Reason For Call: Test Results - Patient is calling regarding her abnormal lab results. Her potassium is 5.8. And some other labs were off and causing her concern. I spoke to clinical nurses who indicated she should go to the local ED and have the a BMP drawn to recheck potassium and treated if the level as still high. This information was provided to the patient who verbalized understanding. She would like to speak with Dr. Lora when he is available at [phone]. Physician: Lorenzo Lora MD Patient was informed that non-urgent calls may be returned within the next three business days. Yes Sanjuana Pardo [facility] 07-06-2024 Miscellaneous Notes July 06, 2024 Name: Iris Thomason Patient Contact Number: [phone] (home) [phone] (cell) Date of last office visit: 07/04/2024 Reason For Call: Test Results - Patient is calling regarding her abnormal lab results. Her potassium is 5.8. And some other labs were off and causing her concern. I spoke to clinical nurses who indicated she should go to the local ED and have the a BMP drawn to recheck potassium and treated if the level as still high. This information was provided to the patient who verbalized understanding. She would like to speak with Dr. Lora when he is available at [phone]. Physician: Lorenzo Lora MD Patient was informed that non-urgent calls may be returned within the next three business days. Yes Sanjuana Pardo documented in this encounter [facility] 07-05-2024 Telephone encounter Note July 05, 2024 Name: Iris Thomason Patient Contact Number: [phone] (home) [phone] (cell) Date of last office visit: 07/04/2024 Reason For Call: Other Issue: Patient went to yesterday to get holter monitor. They were not able to get insurance approval in time. Can she get it at one of the [facility] locations nearer to here like the [facility]? Iris Thomason is asking for someone to call her at [phone]. Physician: Lorenzo Lora MD Patient was informed that non-urgent calls may be returned within the next three business days. Yes Sanjuana Pardo [facility] 07-04-2024 Note [facility] Cholesterol Ratio (LDL/HDL) July 04, 2024 5:51pm 1.72 <2.54 Reference:1. Critical access hospital Cholesterol Education Program ATP III Guideline At-A-Glance Quick Desk Reference: National Heart, Lung, and Blood [place]. National Institutes of Health. 2001: NIH Publication No. 3305.2. An International Atherosclerosis Society position paper: global recommendations for the management of dyslipidemia: executive summary, Atherosclerosis. 2014: 232(2):410-413. Comment on above: Reference:1. [facility] Cholesterol Education Program ATP III Guideline At-A-Glance Quick Desk Reference: National Heart, Lung, and Blood [place]. National Institutes of Health. 2001: NIH Publication No. 3305.2. An International Atherosclerosis Society position paper: global recommendations for the management of dyslipidemia: executive summary, Atherosclerosis. 2014: 232(2):410-413. 07-04-2024 Note [facility] Cholesterol Ratio (LDL/HDL) July 04, 2024 5:51pm 1.72 <2.54 Reference:1. Nelsy ional Cholesterol Education Program ATP III Guideline At-A-Glance Quick Desk Reference: National Heart, Lung, and Blood [place]. National Institutes of Health. 2001: NIH Publication No. 3305.2. An International Atherosclerosis Society position paper: global recommendations for the management of dyslipidemia: executive summary, Atherosclerosis. 2014: 232(2):410-413. Comment on above: Reference:1. Nationa l Cholesterol Education Program ATP III Guideline At-A-Glance Quick Desk Reference: National Heart, Lung, and Blood [place]. National Institutes of Health. 2001: NIH Publication No. 3305.2. An International Atherosclerosis Society position paper: global recommendations for the management of dyslipidemia: executive summary, Atherosclerosis. 2014: 232(2):410-413. 07-04-2024 Note [facility] Cholesterol Ratio (LDL/HDL) July 04, 2024 5:51pm 1.72 <2.54 Reference:1. [place] ional Cholesterol Education Program ATP III Guideline At-A-Glance Quick Desk Reference: National Heart, Lung, and Blood [place]. National Institutes of Health. 2001: NIH Publication No. 3305.2. An International Atherosclerosis Society position paper: global recommendations for the management of dyslipidemia: executive summary, Atherosclerosis. 2014: 232(2):410-413. Comment on above: Reference:1. Nationa l Cholesterol Education Program ATP III Guideline At-A-Glance Quick Desk Reference: National Heart, Lung, and Blood [place]. National Institutes of Health. 2001: NIH Publication No. 3305.2. An International Atherosclerosis Society position paper: global recommendations for the management of dyslipidemia: executive summary, Atherosclerosis. 2014: 232(2):410413. 07-04-2024 Instructions Lorenzo Lora MD - 07/04/2024 4:27 PM EST - Holter monitor for 2 days ([facility] device clinic). - Blood work today. - Consult pulmonary hypertension clinic. - Follow up with us in clinic in 3 months - virtual. documented in this encounter [facility] 07-04-2024 History of Presen t illness Narrative Images from the original note were not included. [facility] [place] [facility] SECTION OF HEART FAILURE and CARDIAC TRANSPLANT MEDICINE OUTPATIENT VISIT DATE July 04, 2024 OUTPATIENT VISIT TYPE Consultation PRIMARY CARE PHYSICIAN: Gautam Dill [address] [place] [address] CHIEF COMPLAINT: Palpitations NURSING INTAKE (Patient s concerns and/or recent hospitalizations/ER visits): Iris Thomason is a 59 y/o female from [place], [place] second opinion on pulmonary HTN Pt has history of pulmonary HTN, HTN, autonomic dysfunction, POTS, liv elise, tremors, and COVID-19. Since June last year, hasn't been feeling well: heart fluttering (worse when laying on left side), feeling weak, GI issues (did try taking omeprazole and Pepcid with no relief) January experienced 4 episode of needle pain on left side of chest. Was seen locally in [place], had EKG done that was abnormal. Wore a heart monitor and had a stress test done. Had echo done in May and was told she had pulmonary hypertension. Has made recent diet changes and has started exercising which has been helping Exercise: walking around track - gets very short of breath, fatigued, and feels week. Walks 5-10 minute intervals on treadmill. HF Nursing Assessment: Interim Hospitalizations and/or ER visits: no Chest Pain: yes, needle pain. And squeezing pain in middle of chest that will cause her to cough (happens at rest) Skipping or irregular heartbeats: yes, has gotten worse. Shortness of breath at rest: yes, when laying on back Shortness of breath with activity: yes, happening more often Cough: yes Waking up in the middle of the night gasping for air: no, (did have sleep study done, does not have sleep apnea) Lightheadedness or dizziness: some Feeling like you are going to pass out: yes Actually passing out: no Poor energy level: yes, weakness. Unintentional weight gain: no Unintentional weight loss: no Swelling in your legs,feet, abdomen: no Filling up quickly when you eat: no HISTORY OF PRESENT ILLNESS: We had the pleasure of seeing Ms Thomason today in our cardiology clinic. She is a pleasant 59 yo woman with history of pulmonary hypertension, autonomic dysfunction, and graves disease. She is presenting for palpitations and pulmonary hypertension. Palpitations moderate in intensity, worse when laying, without relieving factors, no associated symptoms, coming several times per week. Prior 3 day holter with nsVT ? Otherwise, she endorses NYHA class II/III exertional SOB with over exertion, without GERARDO, presyncope, or syncope. Had some chest tingling and stress testing reportedly negative. TTE with mild PH. PAST MEDICAL HISTORY Diagnosis Date Autoimmune disease [...] facial TOOTH ROOT REMOVAL wisdom teethe removed SOCIAL HISTORY Social History Tobacco Use Smoking status: Never Smokeless tobacco: Never Substance Use Topics Alcohol use: No Drug use: No FAMILY HISTORY Problem Relation Age of Onset Heart Mother Arrythmias Mother afib other (pulmonary embolism [Other]) Mother Prostate Cancer Father Arrythmias Maternal Grandmother afib Heart Failure Maternal Grandmother Sudden Cardiac Paternal Grandfather Heart Attack Paternal Grandfather Arrythmias Maternal Aunt afib ALLERGIES: ALLERGIES Allergen Reactions Contrast Dye Other: [...] Comments blisters Trimethoprim Itching Other Reaction(s): itching CURRENT MEDICATIONS: Cholecalciferol, Vitamin D3, 50 mcg (2,000 unit) cap Take 2 capsules by mouth once daily. azithromycin (ZITHROMAX) 500 mg tablet Take 500 mg by mouth once daily. MAGNESIUM GLYCINATE ORAL Take 240 mg by mouth once daily. High absorption mv-min/iron/folic/calcium/vitK (WOMEN'S MULTIVITAMIN ORAL) Take 1 tablet by mouth once daily. acetaminophen (TYLENOL 8 HOUR ORAL) Take by mouth as needed. ibuprofen (MOTRIN) 600 mg tablet Take 1 tablet by mouth every 6 hours as needed for Pain. Take with food. (Patient taking differently: Take 800 mg by mouth every 6 hours as needed for pain.) gabapentin (NEURONTIN) 100 mg capsule Take 1 capsule by mouth once daily. nebivolol (BYSTOLIC) 5 mg tablet Take 2.5 mg by mouth once daily. REVIEW OF SYSTEMS: CONSTITUTION: Negative for: Recent weight change HEENT: RESPIRATORY: Positive for: Cough and Difficulty breathing GASTROINTESTINAL: MUSCULOSKELETAL: NEUROLOGICAL: Positive for: Dizziness SKIN: EYES: CARDIOVASCULAR: Positive for: Chest pain, Arrhythmia and Pre-syncope Negative for: Leg swelling GENITOURINARY: PATIENT ENTERED DATA: No data to display 12/31/2010 04/17/2014 PHQ-9 Score 10 15 No data to display PHYSICAL EXAMINATION: BP 149/83 (BP Site: Left Arm, BP Position: Sitting, BP Cuff Size: Regular Adult) Pulse 65 Ht 168.9 cm (5' 6.5 ) Wt 88.6 kg (195 lb 6.4 oz) LMP 03/07/2018 (Exact Date) SpO2 98% BMI 31.07 kg/m General: Well appearing, in no acute distress. Skin: No clubbing, no cyanosis. Eyes: Extra ocular movements intact Oropharynx: Teeth in good repair. Neck: No jugular venous distention, no carotid bruits, carotids have a normal upstroke, no palpable thyromegaly. Lungs: Clear to auscultation bilaterally, no wheezing or rhonchi. Heart: Regular rhythm, PMI not displaced, S1, S2 normal, no S3, no S4, no heaves, no rub and no murmur. Abdomen: Soft, nontender, bowel sounds normal, no palpable organomegaly, no bruits. Extremities: No peripheral edema . Grade 2/4 distal pulses bilaterally. Neuro: Oriented to person, place and time, alert, cooperative. CARDIOVASCULAR MEDICINE TESTING: ECHO 04/13/24 3-day Holter monitor 03/2024: 1 brief nonsustained V. tach IMPRESSION AND RECOMMENDATIONS: Palpitations: ZIO patch for 2 weeks. 2. Pulmonary hypertension: on TTE. - Refer to PH clinic. - Might need RHC. 3. Elevated blood pressure: in clinic. - On BB. Follow up with PCP. 4. Shortness of breath: unclear etiology. - Pulmonary. - Labs. I personally interviewed, confirmed and edited the above information as obtained by others Lorenzo Lora MD [facility] Heart Failure Section Of Heart Failure and Cardiac Transplant Medicine [facility] [place] [facility] Desk [place] [id number] Medical Decision Making: Problems: Moderate: New problem with uncertain prognosis Data: Unique test result(s) reviewed: 2 Unique test(s) ordered: 1 Risk: Low: Low risk from testing/treatment Medical Decision Making Level: 4 - Moderate documented in this encounter [facility] 07-04-2024 Note HNO ID: [id number] Author: LORENZO LORA MD Service: ? Author Type: Physician Type: Progress Notes Filed: 08/12/2024 17:05 Note Text: Heart and Vascular [facility] For Heart Failure SECTION OF HEART FAILURE and CARDIAC TRANSPLANT MEDICINE OUTPATIENT VISIT DATE July 04, 2024 OUTPATIENT VISIT TYPE Consultation PRIMARY CARE PHYSICIAN: Gautam Dill [address] [place] [address] CHIEF COMPLAINT: Palpitations NURSING INTAKE (Patient?s concerns and/or recent hospitalizations/ER visits): Iris Thomason is a 59 y/o female from [place], [place] second opinion on pulmonary HTN Pt has history of pulmonary HTN, HTN, autonomic dysfunction, POTS, liv elise, tremors, and COVID-19. Since June last year, hasn't been feeling well: heart fluttering (worse when laying on left side), feeling weak, GI issues (did try taking omeprazole and Pepcid with no relief) January experienced 4 episode of needle pain on left side of chest. Was seen locally in [place], had EKG done that was abnormal. Wore a heart monitor and had a stress test done. Had echo done in May and was told she had pulmonary hypertension. Has made recent diet changes and has started exercising which has been helping Exercise: walking around track - gets very short of breath, fatigued, and feels week. Walks 5-10 minute intervals on treadmill. HF Nursing Assessment: Interim Hospitalizations and/or ER visits: no Chest Pain: yes, needle pain. And squeezing pain in middle of chest that will cause her to cough (happens at rest) Skipping or irregular heartbeats: yes, has gotten worse. Shortness of breath at rest: yes, when laying on back Shortness of breath with activity: yes, happening more often Cough: yes Waking up in the middle of the night gasping for air: no, (did have sleep study done, does not have sleep apnea) Lightheadedness or dizziness: some Feeling like you are going to pass out: yes Actually passing out: no Poor energy level: yes, weakness. Unintentional weight gain: no Unintentional weight loss: no Swelling in your legs,feet, abdomen: no Filling up quickly when you eat: no HISTORY OF PRESENT ILLNESS: We had the pleasure of seeing Ms Thomason today in our cardiology clinic. She is a pleasant 59 yo woman with history of pulmonary hypertension, autonomic dysfunction, and graves disease. She is presenting for palpitations and pulmonary hypertension. Palpitations moderate in intensity, worse when laying, without relieving factors, no associated symptoms, coming several times per week. Prior 3 day holter with nsVT ? Otherwise, she endorses NYHA class II/III exertional SOB with over exertion, without GERARDO, presyncope, or syncope. Had some chest tingling and stress testing reportedly negative. TTE with mild PH. 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 Blanton: hysteroscopy, polypectomy - LAPS ABD PRTMANDOMENTUM DX W/WO SPEC BR/WA SPX 1996 endometriosis - PAST SURGICAL HISTORY OF reval implant for heart- inserted and removed - PAST SURGICAL HISTORY OF 1995 [facility] - SKIN BX, 1 LESION facial - TOOTH ROOT REMOVAL wisdom teethe removed SOCIAL HISTORY Social History Tobacco Use - Smoking status: Never - Smokeless tobacco: Never Substance Use Topics - Alcohol use: No - Drug use: No FAMILY HISTORY Problem Relation Age of Onset - Heart Mother - Arrythmias Mother afib - other (pulmonary embolism [Other]) Mother - Prostate Cancer Father - Arrythmias Maternal Grandmother afib - Heart Failure Maternal Grandmother - Sudden Cardiac Paternal Grandfather - Heart Attack Paternal Grandfather - Arrythmias Maternal Aunt afib ALLERGIES: ALLERGIES Allergen Reactions - Contrast Dye Other: See Comments chest pain , increased HR, increased BP - Azithromycin GI Upset Severe diarrhea - Budesonide-Formoter* Other: See Comments - Celecoxib Other: See Comments Other Reaction(s): Unknown - Cephalosporins Unknown - Clavulanic Acid Diarrhea Other Reaction(s): diarrhea - Clonidine Other: See Comments Other Reaction(s): Spasm Other Reaction(s): eye brown pain, spasms Other Reaction(s): Spasm Other Reaction(s): eye brown pain, spasms - (more content not included)... [facility] 06-19-2024 Note Patient notified,agreed. [facility] 06-19-2024 Note Received copy of PFT /DLCO done at the [facility] 05/30/24 Apparently on ly DLCO was performed [...] staff to notify patient. Iris Sequeira PA-C [facility] Cardiovascular Medicine [phone] [facility] 06-15-2024 Telephone encounter Note Outside Echo report scanned into [employer] for review. [facility] 06-15-2024 Miscellaneous Notes Outside Echo report scanned into [employer] for review. documented in this encounter [facility] 06-13-2024 History of Presen t illness [...] Comments Pap 12/21/22- Neg Mammogram 03/23/22- [place] 08/02/23: endometrial thickness measures 6.4 mm, [...] Review Audit Reviewed by Marilee Cr MA (Development Lead) on 06/13/24 at 1114 Medication Order Taking? Sig Documenting Provider Last Dose Status Calcium Carb-Cholecalciferol (Calcium 600/Vitamin D3) 600-20 MG-MCG tablet [id number] Take by mouth Delores Jada Cantor, DO Active esomeprazole (NexIUM) [address] capsule [id number] Take 20 mg by mouth in the morning. Take before meals. Do not open capsule.. Delores Jada Sakshi, DO Active gabapentin (Neurontin) 100 MG capsule [id number] Take 100 mg by mouth in the morning and 100 mg before bedtime. Historical Provider, Active loperamide (Imodium A-D) 2 MG tablet [id number] Take 2-4 mg by mouth 4 (four) times a day as needed for diarrhea Delores Cantor, DO Active magnesium 200 MG tablet [id number] Take by mouth Keiko Cordova, DO Active Multiple Vitamins-Minerals (multivitamin with minerals) tablet [id number] Take 1 tablet by mouth Daily Keiko Cordova, DO Active nebivolol (Bystolic) 5 MG tablet [id number] Take 2.5 mg by mouth in the [...] Thickened endometrium R93.89 documented in this encounter [facility] 05-26-2024 Note Opened in error. Kaye sed for administrative reasons. [facility] 05-26-2024 Note Forwarded to [facility] per BY; Patient notified and agreeable. She also wanted you to know that she did follow up with her PCP who then recommended the visits with [facility]. [facility] 05-26-2024 Note Reviewed faxed infor malcolm from [facility] sleep disorder center regarding diagnostic sleep study [...] of PH scheduled 07/04/24 Iris Sequeira PA-C [facility] Cardiovascular Medicine [phone] [facility] 04-27-2024 Evaluation note Diagnosis Onset Date Resolution Increased endometrial stripe thickness acute April 27, 2024 11:14am Pulmonary hypertension acute De cember 2023 11:14am Vitamin D deficiency acute Dece mber 2023 11:14am [facility] Work Phone: 1(455) 634-164412-16-2024 Note03/05/24 ANT Eller: Iris is a pleasant 59 year old female previously evaluated for orthostatic intolerance (OI) consistent with an autonomic neuropathy, subset postural orthostatic tachycardia syndrome (POTS), the connective tissue disorder of hypermobility at our [facility] in the Heart [facility]ascular Center at the [facility]. Last evaluated in clinic over 4 [...] No history of heart disease except PGF [place] 61. Mother: atrial fibrillation. She has increase [...] her PCP to jose (more content not included)...[facility]11-26-2024 Telephone encounter Note* Telephone Encounter - Marilee Cr MA - 04/03/2024 1:53 PM EST Can you please inform pt d/t the holidays we do not have anything available. Would recommend pt to contact primary care physician or go to urgent care. Thank you. [id number] Miscellaneous Notes* Telephone Encounter - Marilee Cr MA - 04/03/2024 1:53 PM EST Can you please inform pt d/t the holidays we do not have anything available. Would recommend pt to contact primary care physician or go to urgent care. Thank you. * Telephone Encounter - Lela Portillo - 04/03/2024 1:43 PM EST Patient stated she has burning, feels like she can't empty and has an odor for a week now. [facility] in [id number] Telephone encounter Note* Telephone Encounter - Lela Portillo - 04/03/2024 1:43 PM EST Patient stated she has burning, feels like she can't empty and has an odor for a week now. [id number] Bryan is a pleasant 59 year old female previously evaluated for orthostatic intolerance (OI) consistent with an autonomic neuropathy, subset postural orthostatic tachycardia syndrome (POTS), the connective tissue disorder of hypermobility at our Syncope [facility] Autonomic Disorders Clinic in the [facility] at the [facility]. Last evaluated in clinic over 4 [...] No history of heart disease except PGF [place] 61. Mother: atrial fibrillation. She has increase [...] Clinic Nurse Practitioner Division of Cardiovascular Medicine [facility] 01-12-2024 Telephone encounter Note* Telephone Encounter - Dejan Jama - 01/12/2024 2:27 PM EDT Called and spoke with pt- scheduled us and ov for march [id number] Miscellaneous Notes* Telephone Encounter - Dejan Jama - 01/12/2024 2:27 PM EDT Called and spoke with pt- scheduled us and ov for march * Telephone Encounter - Keiko Cordova DO - 01/12/2024 11:13 AM EDT Patient is fine to schedule US anytime by the end of this year * Telephone Encounter - Djean Jama - 01/12/2024 10:43 AM EDT Pt said she thought her pelvic us was in April but it was in july of this year and she wasn't sure when she needed to schedule the ultrasound documented in [facility] encounterMer[id number] Telephone encounter Note* Telephone Encounter - Keiko Cordova DO - 01/12/2024 11:13 AM EDT Patient is fine to schedule US anytime by the end of this year [facility] [employer] Work Phone: [phone]) 355-372009-05-2024 Telephone encounter Note* Telephone Encounter - Dejan Jama - 01/12/2024 10:43 AM EDT Pt said she thought her pelvic us was in April but it was in july of this year and she wasn't sure when she needed to schedule the ultrasound [place] [id number] History of Present illness Narrative* Keiko Cordova DO - 01/12/2024 10:15 AM EDT Images from the original note were [...] a couple weeks ago and Seen Dr. aCntor. Denies vaginal bleeding/spotting. Visit Vitals BP 132/78 [...] Comments Pap 12/21/22- Neg Mammogram 03/23/22- [place] 08/02/23: endometrial thickness measures 6.4 mm, [...] Review Audit Reviewed by Marilee Cr MA (Development Lead) on 01/12/24 at 1020 Medication Order Taking? Sig Documenting Provider Last Dose Status Calcium Carb-Cholecalciferol (Calcium 600/Vitamin D3) 600-20 MG-MCG tablet [id number] Take by mouth Delores Cantor, DO Active esomeprazole (NexIUM) [address] capsule [id number] Take 20 mg by mouth in the morning. Take before meals. Do not open capsule.. Delores Cantor, DO Active gabapentin (Neurontin) 100 MG capsule [id number] Take 100 mg by mouth in the morning and 100 mg before bedtime. Historical Provider, Active loperamide (Imodium A-D) 2 MG tablet [id number] Take 2-4 mg by mouth 4 (four) times a day as needed for diarrhea Delores Cantor, DO Active nebivolol (Bystolic) 5 MG tablet [id number] Take 5 mg by mouth in the [...] to gross testing, coordination, and gait are normalor at baseline unless noted below. General Examination: [...] PMB. Has followed with Dr. Blanton in [place] for the past 6 years. Did recommend [...] 5. Vaginal dryness N89.8 documented in this encounterMer[facility] [id number] History of Present illness Narrative* Delores Cantor DO - 01/03/2024 1:00 PM EDT Images from the original note [...] Comments Pap 12/21/22- Neg Mammogram 03/23/22- Neg [place]oscopy 04/18/17- normal ([facility]) U/S 08/02/23: endometrial [...] Findings: No rash. Exam conducted with a auctioneer tobacco present. Procedures ICD-10-CM 1. Breast pain in female N64.4 C/o intermittent shooting breast pain for possibly a few months. Denies any trauma, skin changes ornipple discharge. No new medication or herbals/supplements. Paternal [...] DO Assessment & Plan documented in this encounterMercy Hospital [id number] Telephone encounter Note* Telephone Encounter - Gwen Millan LPN - 11/30/2023 5:36 PM EDT Labs are listed in [facility]07-24-2024 Miscellaneous Notes* Telephone Encounter - Gwen Millan LPN - 11/30/2023 5:36 PM EDT Labs are listed in [facility] * Telephone Encounter - Leticia Millan - 11/30/2023 1:44 PM EDT Iris is calling Matthew Hall MD today with concern regarding Patient Question and lab results. She is asking about labs that were sent over from [facility] in July. She states that the Thyroid AB was elevated and she wondered if anything should be done about this. Please review and advise. Patient has been identified by name and birthdate. Person calling: self Call patient at: at home [phone] (home) [phone] (cell) Was an appointment scheduled: No Closing statement: Results or non-symptom based questions: Thank you for calling [facility], your call will be returned within the next business day. Leticia Millan documented [facility] Telephone encounter Note * Telephone Encounter - Leticia Millan - 11/30/2023 1:44 PM EDT [facility] is calling Matthew Hall MD today with concern regarding Patient Question and lab results. She is asking about labs that were sent over from [facility] in July. She states that the Thyroid AB was elevated and she wondered if anything should be done about this. Please review and advise. Patient has been identified by name and birthdate. Person calling: self Call patient at: at home [phone] (home) [phone] (cell) Was an appointment scheduled: No Closing statement: Results or non-symptom based questions: Thank you for calling [facility], your call will be returned within the next business day. Leticia Millan [facility]07-10-2024 NoteHNO ID: [id number] Author: LAINEY LINDSEY MD, PhD Service: ? Author Type: Physician Type: Procedures Filed: 11/16/2023 16:23 Note Text: Fine needle aspiration of Thyroid Nodule (November 16, 2023) Referring Physician: Matthew Hall MD Primary Care Physician: Gautam Dill DO Indication: (E04.2) Multiple thyroid nodules (primary encounter diagnosis) Comment: FNA of right lobe thyroid nodule Plan: US THYROID FNA (POC) ENDO USE ONLY, CYTOLOGY NON-SEMI CONDUCTOR ASSEMBLER Iris Thomason was identified by name and [...] by telephone. Follow up:[facility]. [facility]olinar [facility], [facility] Procedure note* Lainey Lindsey MD, PhD - 11/16/2023 4:21 PM EDTProcedure(s): THYROID RIGHT FINE NEEDLE ASPIRATION Pre-Procedure Diagnose(s): Multiple thyroid nodules Post-Procedure Diagnose(s): Multiple thyroid nodules Fine needle aspiration of Thyroid Nodule (November 16, 2023) Referring Physician: Matthew Hall MD Primary Care Physician: Gautam Dill DO Indication: (E04.2) Multiple thyroid nodules (primary encounter diagnosis) Comment: FNA of right lobe thyroid nodule Plan: US THYROID FNA (POC) ENDO USE ONLY, CYTOLOGY NON-SEMI CONDUCTOR ASSEMBLER Iris Thomason was identified by name and [...] telephone. Follow up:With Dr. Apolinar MD, PhD [facility] Procedure note* Lainey Lindsey MD, PhD - 11/16/2023 4:21 PM EDTProcedure(s): THYROID RIGHT FINE NEEDLE ASPIRATION Pre-Procedure Diagnose(s): Multiple thyroid nodules Post-Procedure Diagnose(s): Multiple thyroid nodules Fine needle aspiration of Thyroid Nodule (November 16, 2023) Referring Physician: Matthew Hall MD Primary Care Physician: Gautam iDll DO Indication: (E04.2) Multiple thyroid nodules (primary encounter diagnosis) Comment: FNA of right lobe thyroid nodule Plan: US THYROID FNA (POC) ENDO USE ONLY, CYTOLOGY NON-SEMI CONDUCTOR ASSEMBLER Iris Thomason was identified by name and [...] Dr. Apolinar MD, PhD documented in this encounterRivers[facility]07-10-[facility]24 Nurse Note* Yi Jama MA - 11/16/2023 3:17 PM EDT UNIVERSAL PROTOCOL / SAFETY CHECKLIST Procedure to [...] Visit completed when applicable. Yi Jama MA [facility]07-10-[facility] Nurse Note* Yi Jama MA - 11/16/2023 3:17 PM EDT UNIVERSAL PROTOCOL / SAFETY CHECKLIST Procedure to [...] applicable. Yi Jama MA documented in this encounterRivers[facility]07-02-2024 Telephone encounter Note * Telephone Encounter - Gwen Millan LPN - 11/08/2023 3:46 PM EDT Spoke to patient, let her know that another US is not necessary. Patient verbalized understanding. [facility]07-02-[facility] Miscellaneous Notes* Telephone Encounter - Gwen Millan LPN - 11/08/2023 3:46 PM EDT Spoke to patient, let her know that another US is not necessary. Patient verbalized understanding. * Telephone Encounter - Sheela Banks - 11/07/2023 2:01 PM EDT Iris is calling Lainey Lindsey MD, PhD [...] calling: self Call patient at: at home [phone] (home) [phone] (cell) Was an appointment scheduled: No Closing statement: Results or non-symptom based questions: Thank you for calling [facility], your call will be returned within the next business day. Sheela Haider documented in this encounterRivers[facility]07-01-2024 Telephone encounter Note * Telephone Encounter - Sheela Banks - 11/07/2023 2:01 PM EDT Iris is calling Lainey Lindsey MD, PhD [...] calling: self Call patient at: at home [phone] (home) [phone] (cell) Was an appointment scheduled: No Closing statement: Results or non-symptom based questions: Thank you for calling [facility], your call will be returned within the next business day. Sheela Tyson Pss [facility]06-12-2024 Hospital Discharge instructionsAmbulatory Orders* Referral to Gastroenterology Time Frame: 10/19/23, Location: None Selected [facility] Work Phone: 1(463) 889-337206-12-2024 Evaluation note* Author Pema Lo [facility] Authored October 19, 2023 8:48 am The above note written by CHRISTIANO Soto acting as human recorder, note dictated by Dr. Gautam Dill. [facility] Work Phone: 1(610) 132-797204-03-2024 Miscellaneous Notes* Telephone Encounter - Carla Velasquez RN - 08/10/2023 1:47 PM EDT Called patient to discuss the following message from Dr. 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 If she wants to further discuss, [...] 2023 3:24 PM * Telephone Encounter - Salud Winsome Gregory - 08/09/2023 12:58 PM EDT Reason for [...] Visit date not found documented in this encounterRiverside [facility] Hospital04-01-2024 History of Present illness Narrative* Heather Blanton MD - 08/08/2023 5:52 PM EDT Images from the original note were not included. I have communicated my name and active licensure. The patient's identity and physical location wereverified at the time of this visit. Either the patient or their legal merchandiser retail representative has been informed of the risks and benefits of -- and alternatives to -- treatment through a remote evaluation andconsents to proceed with the evaluation remotely. This is a 58 yo with recurrent endometrial thickening, no vaginal bleeding. Previous hysteroscopic polypectomy D&C with pathology with proliferative endometrium and endometrial polyp. Referred by Dr. Samantha Hernandez in [place] In 2018 had hysteroscopy: Surgery/Procedure Date: 04/25/2018 Incision/Procedure Start Time: 10:03 AM Incision Close/Procedure End Time: 10:50 AM Surgeon(s)/Proceduralist(s) and Homicide Squad Captain(s): Surgeon(s) and Role: * Heather Blanton - [...] in the canal and removed with the Cheney-NephiWitness morcellator. All instruments were removed from vagina [...] minutes Heather Blanton MD Cc: Dr. Lola Hernandez documented in this encounterRiverside [facility] Hospital03-11-2024 Miscellaneous Notes* Telephone Encounter - Bekah Zaragoza MA - 07/18/2023 11:56 AM EDT Fax received and placed on Dr Shah's desk. * Telephone Encounter - Tricia Arrington RN - 07/14/2023 4:12 PM EST Pt calls Pts pcp had labs done and asking for fax # Caller was provided [phone] Please await fax with lab results documented in this encounterRiverside [facility] Hospital02-12-2024 Evaluation note* Encounter Date Diagnosis Assessment [...] get a visit set up with her maintenance mechanic elevators to discuss this further. Patient is in [...] get a consult set up with her maintenance mechanic elevators. Jun, Hyperlipidemia (ICD-10 - E78.5) Blood work ordered to update. Jun, Hyperglycemia (ICD-10 - R73.9) Blood work ordered to update. Jun, Vitamin D deficiency (ICD-10 - E55.9) Blood work ordered to update. Jun, Microcytic anemia (ICD-10 - D50.9) Blood work ordered to update. Jun, Autonomic dysfunction (ICD-10 - G90.9) Encouraged she get ahold of the maintenance mechanic elevators to get a consult set up. Blood work ordered to update. [employer] Other [id number] Instructions* Patient Instructions* Matthew Hall MD - 03/22/2023 8:49 AM EST Famotidine 20 mg daily before dinner Elevation of head of the bed by about 6 inches Get thyroid ultrasound documented in this encounterRiverside [facility] Hospital11-14-2023 History of Present illness Narrative* Matthew [...] Per Pt, thyroid tests were done at [facility] within the last year and were OK. Per Dr. Lindsey note form 2016: She reports having h/o Grave's disease diagnosed. Treated with methimazole by Ground Crew Lines Person in [place], [place] for sometime. Medication was stopped after [...] PMH PMH - PAST MEDICAL HISTORY OF epstieorin elise dx per blood work POTS (postural [...] OTC. Matthew Hall MD documented in this encounterRiverside [facility] Hospital09-12-2023 Evaluation note* Encounter Date Diagnosis Assessment Notes Treatment Notes Treatment Clinical Notes Jan, Hypertension (ICD-10 - I10) [employer] Other [id number] Miscellaneous Notes* Telephone Encounter - Gwen Millan LPN - 01/18/2023 7:08 AM EDT Patient has not been seen by endocrinology since 2016. [employer] message sent informing patient she will need [...] calling: self Call patient at: on cell [phone] (home) [phone] (cell) Was an appointment scheduled: Closing statement: Jaymie Brown documented in this encounterRiverside [facility] Hospital04-13-2023 Evaluation note* Encounter Date Diagnosis Assessment Notes Treatment Notes Treatment Clinical Notes Aug, Hypertension (ICD-10 - I10) [employer] Other 11-28-2022 Evaluation note* Encounter Date Diagnosis Assessment Notes [...] T-dap as she will be leaving for [place] to visit her premature infant grandchild who is in ICU. Patient encouraged she increase her water intake. [employer] Other 10-24-2022 Evaluation note* Encounter Date Diagnosis Assessment Notes Treatment Notes Treatment Clinical Notes Feb, Hypertension (ICD-10 - I10) [employer] Other 10-11-2022 Evaluation note* Encounter Date Diagnosis Assessment Notes Treatment Notes Treatment Clinical Notes Feb, Microcytic anemia (ICD-10 - D50.9) Feb, Hyperlipidemia (ICD-10 - E78.5) Feb, Vitamin D deficiency , unspecified (ICD-10 - E55.9) Feb, Fatigue (ICD-10 - R53.83) [employer] Other 07-08-2022 NotePROCEDURE: XR TIB_FIB LT 2V HISTORY: Pain ; acute left tobar pain and burning COMPARISON: None. FINDINGS: BONES:No fracture, acute abnormality, or significant arthropathy. SOFT TISSUES:No appreciable soft tissue swelling. EFFUSION:None visible. OTHER: Negative. IMPRESSION: 1. No acute bone abnormality. 2. No radiopaque foreign body or suspicious findings. Electronically authenticated by: FAROOQ VENCES Date: 2021-11-13 13:28[facility]03-30-2022 Evaluation note* Encounter Date Diagnosis Assessment Notes Treatment Notes Treatment Clinical Notes Jul, Hypertension (ICD-10 - I10) [employer] Other 12-15-2021 Evaluation note* Encounter Date Diagnosis [...] has previously seen Dr. Prashant Ramirez at [facility] last seeing him 09/2020. She [...] adjustments by Dr. Truong, a chiropractor in [place]. Encouraged her to continue with the adjustments [...] She is in agreement and voiced understanding. [employer] Other 08-20-2015 History general Narrative - Reported* [...] History Fibroid removal 05/2018 Hospitalization History above [facility] [employer] Other evaluation [facility] Other evaluation noteNo InformationNortGuthrie [facility] Other evaluation noteNo assessment information available [facility] Work Phone: evaluation note* Diagnosis Multiple thyroid nodules- Primary Nontoxic multinodular goiter documented in this encounter [facility] note* Diagnosis Thickened endometrium- Primary Nonspecific (abnormal) findings on radiological and other examination of genitourinary organs documented in this encounter [facility] note* Author Pema Lo [facility] Authored October 19, 2023 8:48 am The above note written by CHRISTIANO Soto acting as human recorder, note dictated by Dr. Gautam Dill. [facility] Work Phone: evaluation note* Diagnosis Multiple thyroid nodules- Primary Nontoxic multinodular goiter documented in this encounter [facility] note* Diagnosis Multiple thyroid nodules- Primary Nontoxic multinodular goiter documented in this encounter [facility] note* Diagnosis Onset Date Resolution Status Difficulty swallowing acute GERD (gastroesophageal reflux disease) acute Irritable bowel syndrome with constipation acute [facility] Work Phone: evaluation note* Diagnosis Breast pain in female Mastodynia Encounter for screening mammogram for malignant neoplasm of breast [facility] [place] [facility]* Diagnosis Encounter for gynecological examination without abnormal finding- Primary Screening for malignant neoplasm of cervix Screening for malignant neoplasm of the cervix Encounter for screening mammogram for breast cancer Thickened endometrium Nonspecific (abnormal) findings on radiological and other examination of genitourinary organs Vaginal dryness Postmenopausal atrophic vaginitis documented [facility] this [facility] [place] [facility]* Diagnosis Pulmonary hypertension, unspecified (HCC)- Primary [facility] [place] [facility]* Diagnosis Thickened endometrium Nonspecific (abnormal) findings on radiological and other examination of genitourinary organs documented [facility] this encounter [facility] [place] [facility]* Diagnosis Primary pulmonary hypertension (HCC)- Primary Primary pulmonary hypertension documented in this encounter [facility] note* Diagnosis Palpitations Pulmonary hypertension (HCC) Other chronic pulmonary heart diseases [facility] [place] [facility]* Diagnosis Primary pulmonary hypertension (HCC) Primary pulmonary hypertension [facility] [place] [facility]* Diagnosis Palpitations- Primary Pulmonary hypertension (HCC) Other chronic pulmonary heart diseases SOB (shortness of breath) Shortness of breath Elevated blood pressure reading Elevated blood pressure reading without diagnosis of hypertension [facility] [place] [facility]* Diagnosis Lung nodule seen on imaging study- Primary Solitary pulmonary nodule SOBOE (shortness of breath on exertion) Shortness of breath Lung nodules Other nonspecific abnormal finding of lung field [facility] [place] [facility]* Diagnosis Thickened endometrium Nonspecific (abnormal) findings on radiological and other examination of genitourinary organs Dysuria documented in this encounter [facility] note* Diagnosis Chest pain, unspecified type- Primary Palpitations Pulmonary hypertension (HCC) Other chronic pulmonary heart diseases SOB (shortness of breath) Shortness of breath Elevated blood pressure reading Elevated blood pressure reading without diagnosis of hypertension documented [facility] [place] [facility]* Diagnosis Lung nodules- Primary Other nonspecific abnormal finding of lung field [facility] [place] [facility]* Diagnosis Lung nodules Other nonspecific abnormal finding of lung field [facility] [place] [facility]* Diagnosis Pulmonary hypertension (HCC)- Primary Other chronic pulmonary heart diseases documented in this encounter [facility] note* Diagnosis Palpitations Pulmonary hypertension (HCC) Other chronic pulmonary heart diseases Postural orthostatic tachycardia syndrome (POTS) Tremor Abnormal involuntary movements Essential (primary) hypertension Unspecified essential hypertension Thyroid nodule Nontoxic uninodular goiter documented in this encounter [facility] general Narrative - [facility]Nobarn[facility] [employer] Other Hospital Discharge instructionsAmbulatory Orders* Referral to Gastroenterology Time Frame: 10/19/23, Location: None [facility] Work Phone: Reason for referral (narrative)* Diagnostic Procedure Only (Routine) - Authorized Specialty Diagnoses / Procedures Referred By Contac t Referred To Contact US IMAGING Diagnoses Multiple thyroid nodules Procedures US THYROID/PARATHYROID US SOFT TISSUE HEAD & NECK REAL TIME IMGE DOCMatthew Roche MD [address] [address] [place] [address] Referral ID Status Reason Start Date Expiration Date Visits Requested Visits Authorized [id number] Authorized Auto-Generat ed Referral 04/20/2024 1 1 [facility] for referral (narrative)* Diagnostic Procedure Only (Routine) - New Request Specialty Diagnoses / Procedures Referred By Lupe raza Referred To Contact US IMAGING Diagnoses Multiple thyroid nodules Procedures US THYROID/PARATHYROID US SOFT TISSUE HEAD & NECK REAL TIME IMGE DOCM Matthew Hall MD [address] [facility] [address] [place] [address] [place] [address] Referral ID Status Reason Start Date Expiration Date Visits Requested Visits Authorized [id number] New Request Auto-Generat ed Referral 11/06/2024 12/23/2024 1 1 [facility] for referral (narrative)* Outpatient Procedure (Routine) - Authorized Specialty Diagnoses / Procedures Referred By Lupe raza Referred [facility] Diagnoses Pulmonary hypertension, unspecified (HCC) Procedures ECG COMPLETE ECG ROUTINE ECG W/LEAST 12 LDS W/I&R Lorenzo Lora MD [address] [place] [address] [facility] [address] [place] [address] Referral ID Status Reason Start Date Expiration Date Visits Requested Visits Authorized [id number] Authorized Auto-Generat ed Referral 05/11/2024 05/11/2025 1 1 [facility] for visit Narrative* MRI/CT (Routine) - Closed Specialty Diagnoses / Procedures Referred By Lupe raza Referred To Contact CT IMAGING Diagnoses Lung nodules Procedures CT CHEST WO IVCON DIAGNOSTIC COMPUTED TOMOGRAPHY THORAX W/O CNTRST Wing Farrell T, COLLABORATIVE TEACHER.DYE HOUSE VAT WORKER [address] [place] [address] Phone: tel: fax: [place] [address] Referral ID Status Reason Start Date Expiration Date V isits Requested Visits Authorized [id number] Closed Auto-Generate d Referral 09/25/2024 11/24/2024 1 1 [facility] Summary Purpose Family History No Family History Records Found Relationship Condition Age at Onset Recorded Date/T annamarie father Malignant neoplasm Unknown Hypertension Unknown Not Specified Heart disease Unknown Relationship Condition Age at Onset Recorded Date/T annamarie father Malignant neoplasm Unknown Hypertension Unknown mother Heart disease Unknown Advance Directives No Advanced Directives Records Found Advance Directive Response Recorded Date/ Time Advance Directives No February 22, 2017 6:29pm Advance Directive Response Recorded Date/ Time Advance Directives No February 22, 2017 5:29pm Documents on File Type Date Recorded 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 Advance Directive(s) 04/17/2018 12:35 PM Documents on File Type Date Recorded 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 Advance Directive(s) 04/17/2018 12:35 PM Advance Directive Response Recorded Date/ Time Advance Directives No July 12 3:43pm Chief Complaint and Reason for Visit Chief [...] constipation Chief Complaint R10.9 R14.0 R10.11 Refer Gautam Dill, LLQ pain, RUQ pain, diarrhea R13.10 K21.9 Reason for Visit Difficulty swallowin g GERD (gastroesophageal reflux disease) Irritable bowel syndrome with constipation Chief Complaint Admit Date discuss labs from [facility] April 27 11:14am E87.5 July 16, 2024 10: 17am Reason for Visit Admit Date Increased endometrial stripe thickness D ecember 2023 11:14am Pulmonary hypertension April 27 11:14am Vitamin D deficiency April 27, 2024 11:14am Chief Complaint Admit Date E87.5 July 16, 2024 10: 17am weight management July 26, 2024 10: 30am Additional Source Comments INFORMATION SOURCE (unrecogn ized section and content) DATE CREATED AUTHOR 10/27/2017 [facility] DATE CREATED AUTHOR AUTHOR'S ORGANIZ ATION 10/27/2017 [facility] DATE CREATED AUTHOR AUTHOR'S ORGANIZ ATION 05/16/2021 [facility] DATE CREATED AUTHOR AUTHOR'S ORGANIZ ATION 07/31/2022 [facility] DATE CREATED AUTHOR AUTHOR'S ORGANIZ ATION 07/16/2024 [facility] DATE CREATED AUTHOR AUTHOR'S ORGANIZ ATION 09/14/2024 [facility] EPIC DATE CREATED AUTHOR AUTHOR'S ORGANIZ ATION 09/22/[address] [facility] DATE CREATED AUTHOR AUTHOR'S ORGANIZ ATION 10/09/2024 [facility] REASON FOR VISIT (unrecogniz ed section and [...] diagnosed with Pulmonary hypertension. Reason Comments Results Reason Comments Counseling Patient went to to get holter monitor. They were not able to get insurance approval in time. Reason Comments Advice Only Reason Comments Results Patient is calling r egarding her abnormal lab results. Her potassium is 5.8. And some other labs were off and causing her concern. Reason Comments Radiology XR Reason Comments Holter Monitor Application Specialty Diagnoses / Procedures Referred By Lupe t Referred To Contact Cardiology / CARD [facility] Diagnoses Palpitations Palpitations [R00.2] Pulmonary hypertension (HCC) [I27.20] Procedures XTRNL ECG & 48 HR RECORDING HOLTER MONITOR Lorenzo Lora MD [address] [place] [address] Phone: tel: fax: Tiffany, Nurse Card [facility] [address] [place] [address] Phone: tel: fax: Referral ID Status Reason Start Date Expiration Date Visits Re quested Visits Authorized [id number] Closed 07/31/2024 05/08/2025 2 1 Reason Comments Palpitations Reason Comments Nodule Reason Comments Procedure Pt presents for EMB. Pt request Urine dip. Was not able to get enough urine for dip stick. Denies iodine allergy. Denies vaginal bleeding/spotting. Reason Comments Follow Up Reason Comments Radiology CT Reason Comments Established Patient Lung Nodules Reason Comments Spirometry Specialty Diagnoses / Procedures Referred By Contac t Referred To Contact [facility] Diagnoses Primary pulmonary hypertension (HCC) Procedures SIX MINUTE WALK CARDIOPULMONARY EXERCISE STRESS Reyna Buck, RADHA.MAGAZINE WORKER [address] [address] Phone: tel: fax: [facility] [address] [place] [address] Referral ID Status Reason Start Date Expiration Date V isits Requested Visits Authorized [id number] Closed Auto-Generate d Referral 07/04/2024 08/03/2025 1 1 Reason Comments New Specialty Diagnoses / Procedures Referred By Contac t Referred To Contact Diagnoses Palpitations Pulmonary hypertension (HCC) Procedures CONSULT TO PULMONARY HYPERTENSION CLINIC OFFICE/OUTPATIENT NEW HIGH MDM 60 MINUTES Lorenzo Lora MD [address] [place] [address] Phone: tel: fax: Referral ID Status Reason Start Date Expiration Date V isits Requested Visits Authorized [id number] Closed PCP Requested Referral 07/04/2024 07/04/2025 1 1 Care Teams (unrecognized sec tion and content) Team Status: Active Member Role Status Dates Gautam Dill DO Primary Care Provider Active Team Status: Active Member Role Status Dates Gautam Dill DO Primary Care Provide r, Attending Provider Active Start: July 04, 2024 Team Status: Active Member Role Status Dates Gautam Dill DO Primary Care Provider Active Sta rt: July 06, 2024 Heri Toney DO Attending Provider Active Start : July 06, 2024 Team Status: Inactive Member Role Status Dates Gautam Dill DO Primary Care Provide r, Attending Provider Active Start: July 16, 2024 End: July 16, 2024 Team Status: Inactive Member Role Status Dates Gautam Dill DO Primary Care Provider Active Sta rt: July 26, 2024 End: July 26, [address] Active Start: July 26, 2024 End: July 26, [address] LD Attending Provider Active S tart: July 26, 2024 End: July 26, 2024 Team Status: Inactive Member Role Status Dates Gautam Dill DO Primary Care Provider, Attending Provi brad Active Team Status: Inactive Member Role Status Dates Gautam Dill DO Primary Care Provider Active Referral Self Attending Provider Active Ibm Mainframe Developer Relationship Specialty Start Date End Date Gautam Dill DO [address] [place] [phone] PCP - General 07/22/03 Ibm Mainframe Developer Relationship Specialty Start Date End Date Gautam Dill DO [address] [place] [address] PCP - General 07/22/03 Team Status: Inactive Member Role Status Dates Gautam Dill DO Primary Care Provide r, Attending Provider Active Start: June 23, 2023 End: June 23, 2023 Ibm Mainframe Developer Relationship Specialty Start Date End Date Gautam Dill DO [address] [place] [id number] PCP - General 07/22/03 Ibm Mainframe Developer Relationship Specialty Start Date End Date Gautam Dill DO [address] [place], [place] [address], [place] [address] PCP - General 07/22/03 Navneet Hernandez MD [address] [place] [address] Geomatics Professor 08/05/23 Ibm Mainframe Developer Relationship Specialty Start Date End Date Gautam Dill DO [address] [place] [address] PCP - General 07/22/03 Navneet Hernandez MD [address] [facility] [address] [place] [address] Geomatics Professor 08/05/23 Team Status: Inactive Member Role Status Dates Gautam Dill DO Primary Care Provide r, Attending Provider Active Start: October 19, 2023 End: October 19, 2023 Team Status: Active Member Role Status Dates Gautam Dill DO Primary Care Provide r, Attending Provider Active Start: October 19, 2023 Ibm Mainframe Developer Relationship Specialty Start Date End Date Gautam Dill DO [facility] [place] [address] PCP - General 07/22/03 Navneet Hernandez MD [address] [place] [address] Geomatics Professor 08/05/23 Ibm Mainframe Developer Relationship Specialty Start Date End Date Gautam Dill DO [facility] [place] [address] PCP - General 07/22/03 Navneet Hernandez MD [address] [place] [address] Geomatics Professor 08/05/23 Ibm Mainframe Developer Relationship Specialty Start Date End Date Gautam Dill DO [address] [facility] [place] [address] PCP - General 07/22/03 Navneet Hernandez MD [address] [place] [address] Geomatics Professor 08/05/23 Team Status: Inactive Member Role Status Dates Gautam Dill DO Primary Care Provide r, Attending Provider, Referring Provider Active Start: November 24, 2023 End: November 24, 2023 Ibm Mainframe Developer Relationship Specialty Start Date End Date Gautam Dill DO [address] [place] [address] PCP - General 07/22/03 Navneet Hernandez MD [address] [place] [address] Geomatics Professor 08/05/23 Team Status: Inactive Member Role Status [...] February 13, 2024 End: February 13, 2024 Ibm Mainframe Developer Relationship Specialty Start Date End Date Gautam Dill MD [address] [place] [address] PCP - General 12/21/22 Ibm Mainframe Developer Relationship Specialty Start Date End Date Gautam Dill MD [address] [place] [id number] PCP - General 12/21/22 Ibm Mainframe Developer Relationship Specialty Start Date End Date Gautam Dill MD [address] [place] [phone] PCP - General 12/21/22 Ibm Mainframe Developer Relationship Specialty Start Date End Date Gautam Dill MD [address] [place] [id number] PCP - General 12/21/22 Ibm Mainframe Developer Relationship Specialty Start Date End Date Gautam Dill MD [address] [place] [address] PCP - General 12/21/22 Ibm Mainframe Developer Relationship Specialty Start Date End Date Gautam Dill DO [address] [facility] [place] [address] PCP - General 07/22/03 Navneet Hernandez MD [address] [facility] [address] [place] [address] Geomatics Professor 08/05/23 Ibm Mainframe Developer Relationship Specialty Start Date End Date Gautam Dill MD [address] [place] [address] PCP - General 12/21/22 Ibm Mainframe Developer Relationship Specialty Start Date End Date Gautam Dill DO [address] [facility] [place] [address] PCP - General 07/22/03 Navneet Hernandez MD [address] [place] [address] Geomatics Professor 08/05/23 Ibm Mainframe Developer Relationship Specialty Start Date End Date Gautam Dill DO [address] [place] [address] PCP - General 07/22/03 Navneet Hernandez MD [address] [place] [address] Geomatics Professor 08/05/23 Lorenzo Lora MD [address] [place] [address] Primary Staff Physician Cardiology 07/04/24 Ibm Mainframe Developer Relationship Specialty Start Date End Date Gautam Dill DO [address] [place] [address] PCP - General 07/22/03 Navneet Hernandez MD [address] [place] [address] Geomatics Professor 08/05/23 Lorenzo Lora MD [address] [place] [address] Primary Staff Physician Cardiology 07/04/24 Ibm Mainframe Developer Relationship Specialty Start Date End Date Gautam Dill DO [address] [place] [address] PCP - General 07/22/03 Navneet Hernandez MD [address] [place] [address] Geomatics Professor 08/05/23 Lorenzo Lora MD [address] [place] [address] Primary Staff Physician Cardiology 07/04/24 Ibm Mainframe Developer Relationship Specialty Start Date End Date Gautam Dill DO [address] [place] [address] PCP - General 07/22/03 Navneet Hernandez MD [address] [facility] [address] [place] [address] Geomatics Professor 08/05/23 Lorenzo Lora MD [address] [place] [address] Primary Staff Physician Cardiology 07/04/24 Team Status: Inactive Member Role Status Dates Gautam Dill DO Primary Care Provide r, Attending Provider Active Start: April 27, 2024 End: April 27, 2024 Ibm Mainframe Developer Relationship Specialty Start Date End Date Gautam Dill DO [address] [place] [address] PCP - General 07/22/03 Navneet Hernandez MD [address] [facility] [address] [place] [address] Geomatics Professor 08/05/23 Lorenzo Lora MD [address] [place], [place] [id number] Primary Staff Physician Cardiology 07/04/24 Ibm Mainframe Developer Relationship Specialty Start Date End Date Gautam Dill DO [address] [place] [address] PCP - General 07/22/03 Navneet Hernandez MD [address] [place] [address] Geomatics Professor 08/05/23 Lorenzo Lora MD [address] [place] [address] Primary Staff Physician Cardiology 07/04/24 Ibm Mainframe Developer Relationship Specialty Start Date End Date Gautam Dill DO [facility] [place] [address] PCP - General 07/22/03 Navneet Hernandez MD [address] [place] [address] Geomatics Professor 08/05/23 Lorenzo Lora MD [address] [place] [address] Primary Staff Physician Cardiology 07/04/24 Ibm Mainframe Developer Relationship Specialty Start Date End Date Gautam Dill DO [facility] [place] [address] PCP - General 07/22/03 Navneet Hernandez MD [address] [place] [address] Geomatics Professor 08/05/23 Lorenzo Lora MD [address] [place], [place] [id number] Primary Staff Physician Cardiology 07/04/24 Ibm Mainframe Developer Relationship Specialty Start Date End Date Gautam Dill DO [address] [place] [address] PCP - General 07/22/03 Navneet Hernandez MD [address] [place] [address] Geomatics Professor 08/05/23 Lorenzo Lora MD [address] [place] [address] Primary Staff Physician Cardiology 07/04/24 Ibm Mainframe Developer Relationship Specialty Start Date End Date Gautam Dill DO PCP - General 12/21/22 Ibm Mainframe Developer Relationship Specialty Start Date End Date Gautam Dill DO PCP - General 12/21/22 Team Status: Active Member Role Status Dates Gautam Dill DO Primary Care Provider Active Sta rt: July 08, 2024 Silviano King DO Attending Provider Active Sta rt: July 08, 2024 Team Status: Inactive Member Role Status Dates Gautam Dill DO Primary Care Provider Active Sta rt: September 14, 2024 End: September 14, 2024 Keiko Cordova DO Attending Provider Active S tart: September 14, 2024 End: September 14, 2024 Ibm Mainframe Developer Relationship Specialty Start Date End Date Gautam Dill DO [address] [place] [address] PCP - General 07/22/03 Navneet Hernandez MD [address] [place] [address] Geomatics Professor 08/05/23 Lorenzo Loar MD [address] [place] [address] Primary Staff Physician Cardiology 07/04/24 Ibm Mainframe Developer Relationship Specialty Start Date End Date Gautam Dill DO [address] [place] [address] PCP - General 07/22/03 Navneet Hernandez MD [address] [place] [address] Geomatics Professor 08/05/23 Lorenzo Lora MD [address] [place], [place] [id number] Primary Staff Physician Cardiology 07/04/24 Ibm Mainframe Developer Relationship Specialty Start Date End Date Gautam Dill DO [address] [place] [address] PCP - General 07/22/03 Navneet Hernandez MD [address] [place] [address] Geomatics Professor 08/05/23 Lorenzo Lora MD [address] [place] [address] Primary Staff Physician Cardiology 07/04/24 Ibm Mainframe Developer Relationship Specialty Start Date End Date Gautam Dill DO [address] [place] [address] PCP - General 07/22/03 Navneet Hernandez MD [address] [place] [address] Geomatics Professor 08/05/23 Lorenzo Lora MD [address] [place] [address] Primary Staff Physician Cardiology 07/04/24 Ibm Mainframe Developer Relationship Specialty Start Date End Date Gautam Dill DO [address] [place] [address] PCP - General 07/22/03 Navneet Hernandez MD [address] [facility] [address] [place] [address] Geomatics Professor 08/05/23 Lorenzo Lora MD [address] [place] [address] Primary Staff Physician Cardiology 07/04/24 Goals (unrecognized section and content) Goals may be documented in a n alternate section Source Comments (unrecognize d section and content) In the event this informatio n is protected by the Federal Confidentiality of Alcohol and Drug Abuse Patient Records regulations: The Federal rules restrict any use of the information to criminally investigate or prosecute any alcohol or drug abuse patient.[facility] the event this information is protected by the Federal Confidentiality of Alcohol and Drug Abuse Patient Records regulations: The Federal rules restrict any use of the information to criminally investigate or prosecute any alcohol or drug abuse patient.[facility] the event this information is protected by the Federal Confidentiality of Alcohol and Drug Abuse Patient Records regulations: The Federal rules restrict any use of the information to criminally investigate or prosecute any alcohol or drug abuse patient.[facility] the event this information is protected by the Federal Confidentiality of Alcohol and Drug Abuse Patient Records regulations: The Federal rules restrict any use of the information to criminally investigate or prosecute any alcohol or drug abuse patient.[facility] the event this information is protected by the Federal Confidentiality of Alcohol and Drug Abuse Patient Records regulations: The Federal rules restrict any use of the information to criminally investigate or prosecute any alcohol or drug abuse patient.[facility] the event this information is protected by the Federal Confidentiality of Alcohol and Drug Abuse Patient Records regulations: The Federal rules restrict any use of the information to criminally investigate or prosecute any alcohol or drug abuse patient.[facility] the event this information is protected by the Federal Confidentiality of Alcohol and Drug Abuse Patient Records regulations: The Federal rules restrict any use of the information to criminally investigate or prosecute any alcohol or drug abuse patient.[facility] the event this information is protected by the Federal Confidentiality of Alcohol and Drug Abuse Patient Records regulations: The Federal rules restrict any use of the information to criminally investigate or prosecute any alcohol or drug abuse patient.[facility] the event this information is protected by the Federal Confidentiality of Alcohol and Drug Abuse Patient Records regulations: The Federal rules restrict any use of the information to criminally investigate or prosecute any alcohol or drug abuse patient.[facility] HospitalIn the event this information is protected by the Federal Confidentiality of Alcohol and Drug Abuse Patient Records regulations: The Federal rules restrict any use of the information to criminally investigate or prosecute any alcohol or drug abuse patient.[facility] the event this information is protected by the Federal Confidentiality of Alcohol and Drug Abuse Patient Records regulations: The Federal rules restrict any use of the information to criminally investigate or prosecute any alcohol or drug abuse patient.[facility] the event this information is protected by the Federal Confidentiality of Alcohol and Drug Abuse Patient Records regulations: The Federal rules restrict any use of the information to criminally investigate or prosecute any alcohol or drug abuse patient.[facility] HospitalIn the event this information is protected by the Federal Confidentiality of Alcohol and Drug Abuse Patient Records regulations: The Federal rules restrict any use of the information to criminally investigate or prosecute any alcohol or drug abuse patient.[facility] the event this information is protected by the Federal Confidentiality of Alcohol and Drug Abuse Patient Records regulations: The Federal rules restrict any use of the information to criminally investigate or prosecute any alcohol or drug abuse patient.[facility] HospitalIn the event this information is protected by the Federal Confidentiality of Alcohol and Drug Abuse Patient Records regulations: The Federal rules restrict any use of the information to criminally investigate or prosecute any alcohol or drug abuse patient.[facility] HospitalIn the event this information is protected by the Federal Confidentiality of Alcohol and Drug Abuse Patient Records regulations: The Federal rules restrict any use of the information to criminally investigate or prosecute any alcohol or drug abuse patient.[facility] the event this information is protected by the Federal Confidentiality of Alcohol and Drug Abuse Patient Records regulations: The Federal rules restrict any use of the information to criminally investigate or prosecute any alcohol or drug abuse patient.[facility] HospitalIn the event this information is protected by the Federal Confidentiality of Alcohol and Drug Abuse Patient Records regulations: The Federal rules restrict any use of the information to criminally investigate or prosecute any alcohol or drug abuse patient.[facility] HospitalIn the event this information is protected by the Federal Confidentiality of Alcohol and Drug Abuse Patient Records regulations: The Federal rules restrict any use of the information to criminally investigate or prosecute any alcohol or drug abuse patient.[facility]In the event this information is protected by the Federal Confidentiality of Alcohol and Drug Abuse Patient Records regulations: The Federal rules restrict any use of the information to criminally investigate or prosecute any alcohol or drug abuse patient.[facility] HospitalIn the event this information is protected by the Federal Confidentiality of Alcohol and Drug Abuse Patient Records regulations: The Federal rules restrict any use of the information to criminally investigate or prosecute any alcohol or drug abuse patient.[facility] HospitalIn the event this information is protected by the Federal Confidentiality of Alcohol and Drug Abuse Patient Records regulations: The Federal rules restrict any use of the information to criminally investigate or prosecute any alcohol or drug abuse patient.[facility]In the event this information is protected by the Federal Confidentiality of Alcohol and Drug Abuse Patient Records regulations: The Federal rules restrict any use of the information to criminally investigate or prosecute any alcohol or drug abuse patient.[facility] HospitalIn the event this information is protected by the Federal Confidentiality of Alcohol and Drug Abuse Patient Records regulations: The Federal rules restrict any use of the information to criminally investigate or prosecute any alcohol or drug abuse patient.[facility]In the event this information is protected by the Federal Confidentiality of Alcohol and Drug Abuse Patient Records regulations: The Federal rules restrict any use of the information to criminally investigate or prosecute any alcohol or drug abuse patient.[facility]In the event this information is protected by the Federal Confidentiality of Alcohol and Drug Abuse Patient Records regulations: The Federal rules restrict any use of the information to criminally investigate or prosecute any alcohol or drug abuse patient.[facility]In the event this information is protected by the Federal Confidentiality of Alcohol and Drug Abuse Patient Records regulations: The Federal rules restrict any use of the information to criminally investigate or prosecute any alcohol or drug abuse patient.[facility]In the event this information is protected by the Federal Confidentiality of Alcohol and Drug Abuse Patient Records regulations: The Federal rules restrict any use of the information to criminally investigate or prosecute any alcohol or drug abuse patient.[facility] HospitalIn the event this information is protected by the Federal Confidentiality of Alcohol and Drug Abuse Patient Records regulations: The Federal rules restrict any use of the information to criminally investigate or prosecute any alcohol or drug abuse patient.[facility] HospitalIn the event this information is protected by the Federal Confidentiality of Alcohol and Drug Abuse Patient Records regulations: The Federal rules restrict any use of the information to criminally investigate or prosecute any alcohol or drug abuse patient.[facility] HospitalIn the event this information is protected by the Federal Confidentiality of Alcohol and Drug Abuse Patient Records regulations: The Federal rules restrict any use of the information to criminally investigate or prosecute any alcohol or drug abuse patient.[facility] HospitalIn the event this information is protected by the Federal Confidentiality of Alcohol and Drug Abuse Patient Records regulations: The Federal rules restrict any use of the information to criminally investigate or prosecute any alcohol or drug abuse patient.[facility] HospitalIn the event this information is protected by the Federal Confidentiality of Alcohol and Drug Abuse Patient Records regulations: The Federal rules restrict any use of the information to criminally investigate or prosecute any alcohol or drug abuse patient.[facility] HospitalIn the event this information is protected by the Federal Confidentiality of Alcohol and Drug Abuse Patient Records regulations: The Federal rules restrict any use of the information to criminally investigate or prosecute any alcohol or drug abuse patient.[facility] FOR RECORDS PERTAINING TO PATIENTS WHO [...] BE BASED ON THE PRIMARY CLINICAL RECORDS. [facility] [employer] [facility]. provides no warranty or guarantee of the accuracy or completeness of information in this document.
--- NOTE | 2024-10-13 01:10 | ED_ITS ---
HPI HPI - General Adult General Chief complaint: Dizziness Stated complaint: HIGH BLOOD PRESSURE Time Seen by Provider: 10/13/24 00:52 Source: patient Mode of arrival: Wheelchair Limitations: no limitations History of Present Illness HPI narrative: This 59-year-old female has been brought in by her for evaluation of elevated blood pressure. She was feeling very dizzy tonight so she called him and asked him to bring her to the ER. She called him tonight stating that she did not feel good. When he checked her blood pressure it was 220 systolic. She states when she laid down her oxygen saturation dropped to 93%. She had a headache earlier that has resolved. She denies chest pain or shortness of breath at this time. She is currently being worked up at the [facility] for pulmonary hypertension. Related Data Home Medications ?Medication ?Instructions ?Recorded ?Confirmed gabapentin 100 mg capsule 100 mg PO QDAY 07/06/2411/30 nebivolol 5 mg tablet 2.5 mg PO QDAY 07/06/2411/30 Previous Rx's ?Medication ?Instructions ?Recorded meclizine 25 mg tablet 25 mg PO TID PRN dizziness # 20 tabs 10/13/24 Allergies Allergy/AdvReac Type Severity Reaction Status Date / Time Iodinated Contrast Media Allergy Hypertensio Verified 10/13/24 00:58 n latex Allergy Rash Verified 10/13/24 00:58 Review of Systems ROS Status of ROS unobtainable due to mental status [facility] Social History Little interest or pleasure in doing things: not at all Feeling down, depressed, or hopeless: not at all Exam Narrative Exam Narrative: Patient is speaking very slowly and softly and giving minimal answers. She is otherwise awake and aware of her surroundings. Her blood pressure is elevated at 200/83. She is in sinus rhythm on the monitor. Pupils are equal and reactive. There is no facial asymmetry. Oral cavity is moist. Neck is supple. Lung sounds are grossly clear to auscultation bilaterally with good air entry. Heart has regular rate and rhythm. Abdomen is protuberant, soft nontender and there is no fluid wave or organomegaly. She does not have unilateral leg swelling and moves all extremities actively. Constitutional Vital Signs, click to edit/add: Last Vital Signs Temp 98.6 F 10/13/24 00:53 Pulse 66 10/13/24 02:50 Resp 18 10/13/24 02:50 BP 155/82 H 10/13/24 02:37 Pulse Ox 96 10/13/24 02:40 O2 Del Method Room Air 10/13/24 00:53 Course Vital Signs Vital signs: Vital Signs Temperature 98.6 F 10/13/24 00:53 Pulse Rate 87 10/13/24 00:53 Respiratory Rate 24 H 10/13/24 00:53 Blood Pressure 200/83 H 10/13/24 00:53 Pulse Oximetry 99 10/13/24 00:53 Oxygen Delivery Method Room Air 10/13/24 00:53 Temperature 98.6 F 10/13/24 00:53 Pulse Rate 66 10/13/24 02:50 Respiratory Rate 18 10/13/24 02:50 Blood Pressure 155/82 H 10/13/24 02:37 Pulse Oximetry 96 10/13/24 02:40 Oxygen Delivery Method Room Air 10/13/24 00:53 Medical Decision Making MDM Narrative Medical decision making narrative: The twelve-lead EKG is interpreted by me and shows sinus rhythm with a rate of 73 beats a minute. The axis is normal. There are no ischemic changes or conduction defects. Patient's cardiac workup is negative. 2 sets of troponins are normal. CT scan of the brain is nondiagnostic. Blood work is also unremarkable. Her blood pressure on arrival was over 200 systolic. However before anything could be administered to her but started coming down at the time of discharge it is in th e 150s over 80s range. She also feels better. Patient is only on Nebivolol 2.5 mg a day and I have asked her to monitor her blood pressure at home. If it remains consistently elevated she should increase her dose of Nebivolol to 5 mg daily and start taking it in the evening. Additionally for dizziness she is placed on meclizine. Early follow-up is advised after the weekend with PCP and other specialists. She is advised to return anytime for worsening symptoms. At this time I do not have a strong suspicion for stroke since she has no neurologic deficit. Lab Data Labs: Lab Results 10/13/24 10/13/24 Range/Units 01:10 02:40 WBC 6.5 (4.0-11.0) 10^3/uL RBC 4.65 (4.20-5.40) 10^6/uL Hgb 14.2 (12.0-16.0) g/dL Hct 41.1 (36.0-48.0) % MCV 88.4 (81.0-99.0) fL MCH 30.5 (26.7-34.0) pg MCHC 34.5 (29.9-35.2) g/dL RDW 13.7 (11.0-15.0) % Plt Count 182 (150-450) 10^3/uL MPV 10.6 (9.5-13.5) fL Neut % (Auto) 52.1 (43.0-75.0) % Lymph % (Auto) 32.7 (20.5-60.0) % Boyd % (Auto) 8.2 (1.7-12.0) % Eos % (Auto) 6.2 (0.9-7.0) % Baso % (Auto) 0.6 (0.2-2.0) % Neut # (Auto) 3.4 (1.4-6.5) 10^3/uL Lymph # (Auto) 2.1 (1.2-3.8) 10^3/uL Boyd # (Auto) 0.5 (0.3-0.8) 10^3/uL Eos # (Auto) 0.4 (0.0-0.7) 10^3/uL Baso # (Auto) 0.0 (0.0-0.1) 10^3/uL Abs Immat Gran (auto) 0.01 (0.00-0.03) 10^3/uL Imm/Tot Granulo (auto) 0.2 (0.0-0.5) % Sodium 142 (136-145) mmol/L Potassium 3.9 (3.5-5.1) mmol/L Chloride 105 (98-107) mmol/L Carbon Dioxide 26.8 (21.0-32.0) mmol/L Anion Gap 14.1 BUN 17.0 (7.0-18.0) mg/dL Creatinine 0.80 (0.55-1.02) mg/dL Est GFR ( Amer) >60 (>=60 mL/min/1.73m^2) Est GFR (Non-Af Amer) >60 (>=60 mL/min/1.73m^2) BUN/Creatinine Ratio 21.2 Glucose 103 (74-106) mg/dL Calcium 9.4 (8.5-10.1) mg/dL Total Bilirubin 0.3 (0.2-1.0) mg/dL Direct Bilirubin 0.1 (0.0-0.2) mg/dL AST 19 (15-37) U/L ALT 24 (14-59) U/L Alkaline Phosphatase 108 (46-116) U/L Troponin I High Sens 18.4 19.3 (4.0-51.3) pg/mL NT-Pro-B Natriuret Pep 62.0 (<=900.0) pg/mL Total Protein 7.2 (6.4-8.2) g/dL Albumin 3.8 (3.4-5.0) g/dL Globulin 3.4 g/dL Albumin/Globulin Ratio 1.1 Discharge Plan Discharge Chief Complaint: Dizziness Clinical Impression: Dizziness Hypertension Qualifiers: Hypertension type: unspecified Qualified Code(s): I10 - Essential (primary) hypertension Patient Disposition: Home, Self-Care Time of Disposition Decision: 04:22 Condition: Good Mode of Transportation: Private Vehicle Prescriptions / Home Meds: New meclizine 25 mg tablet 25 mg PO TID PRN (Reason: dizziness) Qty: 20 0RF No Action gabapentin 100 mg capsule 100 mg PO QDAY nebivolol 5 mg tablet 2.5 mg PO QDAY Print Language: Malay Additional Instructions: Monitor your blood pressure daily. If it remains consistently high, increase Nebivolol dose to 5 mg a day. Take your blood pressure pill in the evening. Meclizine up to 3 times a day for dizziness as needed. Contact your PCP for early follow-up after the weekend. Contact your specialist at the [facility] for early follow-up after the weekend. Return for worsening symptoms. Referrals: Gautam Wren DO [Primary Care Provider] - 1 week
--- NOTE | 2024-10-13 01:21 | PC.NURSE ---
Pt presents to ER with a multitude of complaints Er registration calls back for assistance getting patient out of vehicle This nurse asks security to escort, pt is assisted into a wheelchair and brought back to ER room where she is a 2 person assist from wheelchair to ER cot Pt stands but is shaking and presents as if her legs are going to give out Pt does not respond verbally to questions asked by this nurse Pts presents to room and states she has not been doing well for months, when asked to elaborate her states she has been having extra heartbeats and saw a doctor at the [facility] This nurse asked if this shaking is normal to which pt shook her head no and the stated it started about 15 minutes prior to arrival Pt then begins softly speaking to nurse, states her mouth is dry and that she felt dizzy all day Pts states he was asleep tonight and his called his cellphone asking for his help in the room she was in Pt denies any pain at this time At the end of assessment patient is no longer shaking and says she is feeling a little better but is sweating Pt's then states that the patient has POTS and she has reacted similarly during those episodes before
[2024-10-13] MEDS: 0.9 % SODIUM CHLORIDE 1,000 ML 125 ML IV (01:30)
[2024-10-13 01:31] LABS: Basophils Percent Auto 0.6 % (0.2-2.0); Eosinophils Absolute Auto 0.4 10^3/uL (0.0-0.7); Eosinophils Percent Auto 6.2 % (0.9-7.0); Hematocrit 41.1 % (36.0-48.0); Hemoglobin 14.2 g/dL (12.0-16.0); Immature Granulocytes Abs Auto 0.01 10^3/uL (0.00-0.03); Immature Granulocytes Pct Auto 0.2 % (0.0-0.5); Lymphocytes Absolute Auto 2.1 10^3/uL (1.2-3.8); Lymphocytes Percent Auto 32.7 % (20.5-60.0); Mean Corpuscular HGB Conc 34.5 g/dL (29.9-35.2); Mean Corpuscular Hemoglobin 30.5 pg (26.7-34.0); Mean Corpuscular Volume 88.4 fL (81.0-99.0); Mean Platelet Volume 10.6 fL (9.5-13.5); Monocytes Absolute Auto 0.5 10^3/uL (0.3-0.8); Monocytes Percent Auto 8.2 % (1.7-12.0); Neutrophils Absolute Auto 3.4 10^3/uL (1.4-6.5); Neutrophils Percent Auto 52.1 % (43.0-75.0); Platelet Count 182 10^3/uL (150-450); Red Blood Count 4.65 10^6/uL (4.20-5.40); Red Cell Distribution Width 13.7 % (11.0-15.0); White Blood Count 6.5 10^3/uL (4.0-11.0)
[2024-10-13 01:46] LABS: Anion Gap 14.1
[2024-10-13 01:52] LABS: Alanine Aminotransferase 24 U/L (14-59); Albumin Globulin Ratio 1.1; Albumin Level 3.8 g/dL (3.4-5.0); Alkaline Phosphatase 108 U/L (46-116); Aspartate Amino Transferase 19 U/L (15-37); BUN Creatinine Ratio 21.2; Bilirubin Direct 0.1 mg/dL (0.0-0.2); Bilirubin Total 0.3 mg/dL (0.2-1.0); Calcium 9.4 mg/dL (8.5-10.1); Carbon Dioxide 26.8 mmol/L (21.0-32.0); Chloride 105 mmol/L (98-107); Estimated GFR (African America >60 (>=60 mL/min/1.73m^2); Estimated GFR (Non-African Ame >60 (>=60 mL/min/1.73m^2); Globulin 3.4 g/dL; Glucose 103 mg/dL (74-106); Potassium 3.9 mmol/L (3.5-5.1); Sodium 142 mmol/L (136-145); Total Protein 7.2 g/dL (6.4-8.2); Troponin I High Sensitivity 18.4 pg/mL (4.0-51.3)
[2024-10-13 03:05] LABS: Troponin I High Sensitivity 19.3 pg/mL (4.0-51.3)
[2024-10-13] MEDS: MECLIZINE HCL 12.5 MG TABLET 25 MG PO (04:38)
== END 2024-10-13 05:02 | disposition home or self-care (01) ==
PROVIDERS: Emergency Provider Emergency Medicine; PCP Family Medicine
DX: R42 Dizziness and giddiness (principal); R03.0 Elevated blood-pressure reading, without diagnosis of hypertension
CPT/HCPCS: 36415; 70450; 71045; 80048; 80076; 83880; 84484; 85025; 93005; 96360; 96361; 99285

== ENCOUNTER 2025-03-08 16:30 | Emergency (ER) | payer MEDICARE, SELFPAY ==
--- OUTSIDE RECORDS SUMMARY | 2025-03-04 20:26 | XMS_ITS | Continuity of Care Document ---
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 Name Role Phone Gautam Wren DO Primary Care Provider Gautam Wren DO Attending Provider [phone] Care Teams Patient Care Team Team Status: Active Member Role/Relationship Status Dates Gautam Wren DO Primary Care Provider Active Sriram Aldrich Care ProviderActive Visit Care Team Team Status: Inactive Member Role/Relationship Status Dates Gautam Wren DO Primary Care Provider Active Sta rt: March 04, 2025 End: March 04rosemarie Wren DOAttending ProviderActiveStart: March 04, 2025 End: March 04, 2025 Allergies, Adverse Reactions, Alerts Allergen Type Severity Reaction Last Updated Verified Status adhesive tape Allergy Unknown unknown August 10, 2024 1:36pm Yes Active amoxicillin Allergy Unknown diarrhea August 10, 2024 1:36pm Yes Active budesonide Allergy Unknown blood pressure August 10, 2024 1:36pm Yes Active celecoxib Allergy Unknown unknown August 10, 2024 1:36pm Yes Active cephalexin Allergy Unknown unknown August 10, 2024 1:36pm Yes Active clavulanic acid Allergy Unknown diarrhea August 1:36pm Yes Active clonidine Allergy Unknown eye brown pain, spasms August 10, 2024 1:36pm Yes Active divalproex sodium Allergy Unknown unknown August 102024 1:36pm Yes Active formoterol Allergy Unknown blood pressure August 10, 2024 1:36pm Yes Active Iodinated Contrast Media Allergy Unknown Unknown [place] ction August 10, 2024 1:36pm Yes Active levofloxacin Allergy Unknown severe diarrhea August 102024 1:36pm Yes Active lorazepam Allergy Unknown unknown August 10, 2024 1:36pm Yes Active methylprednisolone Allergy Unknown GI August 10, 2024 1:36pm Yes Active metronidazole Allergy Unknown diarrhea August 10, 2024 1:36pm Yes Active morphine Allergy Unknown blood pressure August 10, 2024 1:36pm Yes Active nitrofurantoin Allergy Unknown bradycardia August 1:36pm Yes Active oxybutynin Allergy Unknown unknown August 10, 2024 1:36pm Yes Active rofecoxib Allergy Unknown unknown August 10, 2024 1:36pm Yes Active sulfamethoxazole Allergy Unknown itching August 1:36pm Yes Active trimethoprim Allergy Unknown itching August 10, 2024 1:36pm Yes Active allantoin Allergy Unknown lip swelling August 10, 2024 1:36pm Yes Active aloe vera Allergy Unknown lip swelling August 10, 2024 1:36pm Yes Active camphor Allergy Unknown lip swelling August 10, 2024 1:36pm Yes Active chamomile flower Allergy Unknown lip swelling August 10, 2024 1:36pm Yes Active dimethicone Allergy Unknown lip swelling August 10, 2024 1:36pm Yes Active herbal complex no.57 Allergy Unknown lip swelling Ap 2024 1:36pm Yes Active homosalate Allergy Unknown lip swelling August 10, 2024 1:36pm Yes Active menthol Allergy Unknown lip swelling August 10, 2024 1:36pm Yes Active meradimate Allergy Unknown lip swelling August 10, 2024 1:36pm Yes Active octinoxate Allergy Unknown lip swelling August 10, 2024 1:36pm Yes Active octyl salicylate Allergy Unknown lip swelling August 10, 2024 1:36pm Yes Active oxybenzone Allergy Unknown lip swelling August 10, 2024 1:36pm Yes Active padimate O Allergy Unknown lip swelling August 10, 2024 1:36pm Yes Active petrolatum,hydrophilic Allergy Unknown lip swelling August 10, 2024 1:36pm Yes Active phenol Allergy Unknown lip swelling August 10, 2024 1:36pm Yes Active Sulfa (Sulfonamide Antibiotics) Allergy Unknown Unknown Reaction August 10, 2024 1:36pm Yes Active Social History Smoking Status Status Start Date End Date Date of Observa tion Never smoked tobacco (finding) July 12, 2024 2:43pm Observation Status Observation Response Date of Response Legal Sex Female (finding) Sex Assigned At BirthFemaleSeptember 1964 Family History Relationship Condition Age at Onset Recorded Date/T annamarie father Malignant neoplasm Unknown HypertensionUnknownmotherHeart diseaseUnknown Problems Active Problems Problem Diagnosis/Recorded Date Onset Date Stat us RUQ abdominal pain October 19, 2023 8:46am Unknown Active LLQ abdominal pain October 19, 2023 8:46am Unknown Active History of thyroid nodule September 27, 2023 2:34pm Unknow n Active Palpitations September 27, 2023 2:34pm Unknown Active Intractable abdominal pain November 15, 2023 10:49am Unkn own Active Pulmonary hypertension April 27, 2024 12:40pm Unk nown Active Difficulty swallowing September 27, 2023 2:34pm Unknown Active Diarrhea October 19, 2023 8:25am Unknown Activ e Dysuria April 04, 2024 9:08am Unknown A ctive Hyperglycemia September 27, 2023 2:34pm Unknown Activ e Hyperlipidemia September 27, 2023 2:34pm Unknown Acti ve Sinusitis April 04, 2024 9:09am Unknown A ctive Elevated troponin July 12, 2024 12:40pm Unknown Active 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, 2024 11: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 Unknown Active Bloating November 15, 2023 10:49am Unknown Activ e Pyogenic granuloma October 19, 2023 9:12am Unknown Active Increased endometrial stripe thickness April 27, 2024 12:40pm Unknown Active POTS (postural orthostatic t achycardia syndrome) September 27, 2023 2:34pm Unknown Active GERD (gastroesophageal reflux disease) September 27, 2023 2:34pm Unknown Active Irritable bowel syndrome wit h constipation February 08, 2024 11:47am Unknown Active Hypertension September 27, 2023 2:34pm Unknown Active Vitamin D deficiency September 27, 2023 2:34pm Unknown Active Medications Medication Status Dose Units Route Directions Qty Days Refills S tart Date Stop Date End Date Reason(s) Instructions Adherence Azithromycin (Zithromax Z-Irving) 250 mg tablet Discontin ued 0 PO.MEVYHCV67Sjipw 2023 12:00amMay 2023 2:47pmFor 250 mg dose pack: take 500 mg today (day 1), then 250 mg for 4 days (days 2-5) POAzithromycin (Zithromax) 500 mg zvuvviGqzoabqayatj200YJLWMxasz43Oyylq 2023 12:00amMay 2023 2:29pmone tablet one hour prior to procedureAzithromycin (Zithromax Z-Irving) 250 mg cbrhclStuvcrxtophh7HH.RVXAVCS21MafSeptember 26, 2023 2:47pmJune 2023 8:38amFor 250 mg dose pack: take 500 mg today (day 1), then 250 mg for 4 days (days 2-5) POCholecalciferol (Vitamin D3) 50 mcg (2,000 unit) capsuleActive 2000UNITPODailySeptember 27, 2023 12:00amFreeTextSi capsule Orally Once a day; Note: Source Status: Taking; Provider: Teresita Riveraprofen 800 mg iaasteVfylyixarbza512NSWJWldbx times dailySeptember 27, 2023 12:00amOctober 2023 11:26amFreeTextSi tablet with food or milk as needed Orally Three times a day; Note: Source Status: Provider: Holger Christopherithromycin (Zithromax) 500 mg wqjrjsHzokvibfhwrw837WFBI.WYJRSLH52Lnsm2023 12:00amOctober 2023 11:56wl856 mg orally take 1 tablet one hour prior to dental procedure; Azithromycin 500 mg srntugHoklycemgahv537POWXWusp36Pxdaqfz 8th, 2024 12:00am April 10, 2024 1:17pmTake one hour before dental procedureAzithromycin (Zithromax) 500 mg xmclxrGaobtqkhasmi292BUMUOeczk as needed for dental procedure 10Nov2023 1:00amDecember 2023 11:59amtake 1 tablet one hour prior to dental procedureAzithromycin 500 mg shqmxzZhymzravzaja898JGNAOnqp63 April 10, 2024 1:17pmJuly 2024 9:29amTake one hour before dental procedureGabapentin 100 mg qnderbdLguwbfjfbvdk596FMXVKlmie39627Hgskofoi 2023 6:20pmMay 2024 3:19pmIbuprofen 800 mg okhwpnMwijdt389PPIFLzwsj 8 hours as needed for zfaq1806Wqlksdy 2024 1:00amUnknownBetamethasone Dipropionate 0.05 % oiaakVsreja2GMXEGWDAMOZAXJbonq daily as needed for mmjc384 July 02, 2024 1:00amUnknownDoxycycline Hyclate 100 mg lreccmkEgncgg795LMWS Twice bzjyg06035Hknvn 2024 12:00amUnknownValacyclovir (Valtrex) 1 gram huikrfAcsggl3171OQMMVkrds kkqtt07Snufp 2024 12:00amUnknownBetamethasone Valerate 0.1 % cnkjkDurqjg5KMWVEBANEFWDHCcjqs daily as needed for skin tzrmsgcmkj281Ncppm 2024 12:00amUnknownGabapentin 100 mg capsuleDiscontinued 406STMKXoqrg36073Dvm 2024 3:19pmOctober 2024 9:08amNebivolol 5 mg ewpnyjCrgvuibivoga7BAIYSomy824Xtke 2024 4:51pmOctober 2024 3:19pm Azithromycin 500 mg dxgzpjNhwnlj915MTPRGtyo49Dluh 2024 9:28amTake one hour before dental procedureUnknownAzithromycin (Zithromax Z-Irving) 250 mg tabletActive 0PO.TAPXCTG90Ghpizm 2024 12:00amFor 250 mg dose pack: take 500 mg today (day 1), then 250 mg for 4 days (days 2-5) POUnknownNebivolol 5 mg tabletActive5 OHYMYkhz806Cfmppzj 2024 3:18pmUnknownGabapentin 100 mg capsuleDiscontinued 110QZZFFjugk13820Lmpjbyc 2024 9:08amOctober 2024 2:45pmGabapentin 100 mg cundlnbKrhkja650OCVVZcivc67032Xbuzhjf 2024 2:45pmUnknownGabapentin 100 mg NmclzgrKyxgfwaefove037RFSMMhxbiHrzoghwl 2016 1:00amDecember 2023 6:21pmEsomeprazole Magnesium (Nexium) 20 mg Capsule,Delayed Release(Dr/Ec) Oocaverkkqdv99DEKQFsnnqSjqeeerg 2016 1:00am[facility] 2023 8:38amNebivolol 5 MG escqulItghbopxehxd5UQXMMeykdNhetugvq 2016 1:00am[facility] 20[facility] 12:37pmFerrous Sulfate (Iron) 325 mg (65 mg iron) SlbtukDhuvjsgwgvqz998NYNHUbfmy April 18, 2017 1:00am[facility] 2023 8:39amNebivolol 5 mg tablet Discontinued2.5MGPODailyDecopper [facility] 2023 12:37pmJune 2024 2:38pm Nebivolol 5 mg rhxvkhRkoqmpwbpzwj2BBTYVieaYuas 2024 2:38pmNov[facility] 2024 4:51pmLoperamide 2 mg bnrquygBxsjsoabiznf6IMSXNuuuz 6 hours as neededE[facility]20[facility] 12:00amOctlouisville [facility] 2023 11:25amChlordiazepoxide-Clidinium (Librax (With Clidinium)) 5-2.5 mg clmzbdjStmmprahzulj4YEZPFHgepi daily as needed for abdominal tnrp78113Auge 2023 12:00amOctlouisville medical center 2023 11:25amDiarrhea Right upper quadrant abdominal pain Left lower quadrant abdominal pain Diarrhea, unspecified Right upper quadrant pain Left lower quadrant painFamotidine (Pepcid Ac) 20 mg byiwfoPsgdfmxxefls84RBHJ Srucc090SaggOctober 19, 2023 12:00amOctlouisville medical center 2023 11:26amOTCMupirocin 2 % zzsgplteAbhpfdwfcsdv2BLNYORUGYJAWSWzewe pgtfn433Exrx 12th, 2024 12:00amOctober 2023 11:25amEsomeprazole Magnesium (Nexium) 40 mg capsule,delayed release(DR/EC)Ibfits37WGVVMtank86936Hacomix 2023 12:00amUnknownAzithromycin (Zithromax) 250 mg jknfibWscrrzjqnlvb8NB.RCXNLVC37Acfndxon 2023 1:00am April 27, 2024 12:37pmFor 250 mg dose pack: take 500 mg today (day 1), then 250 mg for 4 days (days 2-5) PO Immunizations Immunization Event Date Not Given Reason Dose Number Pbx Repairer Lot Number Reason(s) Given Vaccine Information Statement (VIS) Detail Administration Location Tetanus, Diphtheria, Pertussis (Tdap) April 082021 Trivalent Influenza VaccineJan2019Patient Refused Relevant Diagnostic Tests and/or Laboratory Data Laboratory Results Test Collection Date/Time Result Date/Time Result Interpretation Reference Range Result Comment Performing Site Corrected White Blood Count March 04, 2025 11:26am March 04, 2025 1:49pm 4.9 10*3/uL 3.8-11.6FM[facility] [id number] [address] [place] [address] 76652Wpieassygsw WBC CountOctober 2024 11:26amOctober 2024 1:49pm4.9 10*3/uL3.8-11.6FMercy Health [facility] [id number] [address] [place] [address] 16643Oth Blood CountOctober 2024 11:26amOctober 2024 1:49pm4.96 10*6/uL3.60-5.00[facility] [id number] [address] [place] [address] 04828XcqtstcyuzHalvqdj 2024 11:26amOctober 2024 1:49pm 15.0 g/dL11.8-15.4FMercy Health [facility] [id number] [address] [place] [address] 89625OcmwtiqhvfAqzkkxk 2024 11:26amOctober 2024 1:49pm 44.6 %34.0-46.4FMercy Health [facility] [id number] [address] [place] [address] 53284Jemk Corpuscular VolumeOctober 2024 11:26amOctober 2024 1:49pm90.0 pY50-630WjpqmhrccMedina Hospital [facility]tr [id number] [address] [place] [address] 67650Yunh Corpuscular HemoglobinOctober 2024 11:26amOctober 2024 1:49pm30.3 pg24.7-34.3FMercy Health [facility] [id number] [address] [place] [address] 56683Jjqt Corpuscular Hemoglobin ConcentOctober 2024 11:26am March 04, 2025 1:49pm33.7 g/dL32.0-35.0[facility] [id number] [address] [facility] [address]See Cell Distribution WidthOctober 2024 11:26October 2024 1:49pm14.4 %11.9-15.3FMercy Health [facility] [id number] [address] [facility] 288[address]Jhhaakar CountOctober 2024 11:October 2024 1:60dg639 10*3/wP903-059ZlngycmdqMedina Hospital [facility]tr [id number] [address] [facility] 28378Jrqb Platelet VolumeOctober 2024 11:October 2024 1:49pm9.2 fL6.3-10.7FMercy Health [facility] [id number] [address] [facility] 71247Lwfsgqxyemj (%) (Auto)March 04, 2025 11:October 2024 1:49pm51.9 %.[facility] [id number] [address] [facility] 773[address]Tivyvbdhcrp (%) (Auto)March 04, 2025 11:October 2024 1:49pm29.6 %.[facility] [id number] [address] [facility] 345[address]Kffvqrdpq (%) (Auto)March 04, 2025 11:October 2024 1:49pm6.7 %.[facility] [id number] [address] [facility] 31[address]Mxfltgpxumu (%) (Auto)March 04, 2025 11:October 2024 1:49pm11.1 %.[facility] [id number] [address] [facility] 94069Xvnfduyrs (%) (Auto)March 04, 2025 11:26amOctober 2024 1:49pm0.7 %.[facility] [id number] [address] [facility] 69972Rpayxzpmf RBC Relative Count (auto)March 04, 2025 11:26am March 04, 2025 1:49pm0.2 /100{WBC}0-0.5FMercy Health [facility] [id number] [address] [place], [place] [address]Neutrophils # (Auto)March 04, 2025 11:26amOctober 2024 1:49pm2.6 10*3/uL1.8-7.7FMercy Health [facility] [id number] [address] [place], [place] [address]Lymphocytes # (Auto)March 04, 2025 11:26amOctober 2024 1:49pm1.5 10*3/uL1.00-4.8[facility] [id number] [address] [place] [address] 04850Rqairkwfq # (Auto)March 04, 2025 11:26amOctober 2024 1:49pm0.3 10*3/uL0.0-0.8[facility] [id number] [address] [place], [place] [address]Eosinophils # (Auto)March 04, 2025 11:26amOctober 2024 1:49pm0.5 10*3/uLAbove high normal0.0-0.45[facility] [id number] [address] [place] [address] 71831Mpkunyrng # (Auto)March 04, 2025 11:amOctober 2024 1:49pm0.0 10*3/uL0.0-0.2FMercy Health [facility] [id number] [address] [place] [address] 19687Kzrmnep LevelOctober 2024 11:amOctober 2024 3:27pm97 mg/jI89-253RCM recommended reference rangeRandom Glucose Reference Range is dependent on time and content of last meal. Glucose of more than 200 mg/dL in a nonstressed, ambulatory subject supports the diagnosisof Diabetes Mellitus.[facility] [id number] [address] [place] [address] 06447Azdie Urea NitrogenOctober 2024 11:26amOctober 2024 3:27pm15 mg/dL7-25[facility] [id number] [address] [facility] 98392RniqabgkzzOeoykji 2024 11:amOctober 2024 3:27pm 0.81 mg/dL0.60-1.20[facility] [id number] [address] [facility] 44[address]Hmsbtixco GFR (CKD-EPI)March 04, 2025 11:amOctober 2024 3:27pm> 60.0 mL/MinMedina Hospital Ctr [id number] [address] 0437670Sodium LevelOctober 2024 11:amOctober 2024 3:27pm 140 mmol/F792-189OmrowouhwMedina Hospital Ctr [id number] [address] 04376[address]Potassium LevelOctober 2024 11:amOctober 2024 3:27pm4.2 mmol/L3.5-5.1FMercy Health Lor[facility] [id number] [address] [facility] 79[address]Zmkjizea LevelOctober 2024 11:amOctober 2024 3:86ea882 mmol/Y46-078BmsvgnrcbMedina Hospital Ctr [id number] [address] 0437670Carbon Dioxide LevelOctober 2024 11:amOctober 2024 3:27pm27.2 mmol/L21.0-31.0[facility] [id number] [address] [facility] 665[address]Xwtws GapOctober 2024 11:amOctober 2024 3:27pm 10.0 mEq/L6.0-15.0[facility] [id number] [address] [address]37670Calcium LevelOctober 2024 11:amOctober 2024 3:27pm9.0 mg/dL8.6-10.3FMercy Health [facility] [id number] [address] [facility] 39646Xrkfq ProteinOctober 2024 11:26amOctober 2024 3:pm7.1 g/dL6.4-8.9[facility] [id number] [address] [facility] 66[address]EfczwoxScrsbbl 2024 11:amOctober 2024 3:27pm4.4 g/dL3.5-5.7FMercy Health [facility] [id number] [address] [facility] [address]BmdhgkvqInozxzj 2024 11:amOctober 2024 3:27pm2.7 g/dLMedina Hospital [facility] [id number] [address] [facility] 558[address]Feozzlw/Globulin RatioOctober 2024 11:amOctober 2024 3:27pm1.6FMercy Health [facility] [id number] [address] [facility] 657[address]Machn BilirubinOctober 2024 11:amOctober 2024 3:pm0.5 mg/dL0.3-1.0[facility] [id number] [address] [facility] 26252Oofrcyvfn Amino Transf (AST/SGOT)March 04, 2025 11:26am March 04, 2025 3:27pm18 U/Y80-35TnhyhisfzMedina Hospital Ctr [id number] [address] [place] [address] 98936Jtmqngj Aminotransferase (ALT/SGPT)March 04, 2025 11:26am March 04, 2025 3:27pm18 U/L7-52[facility] [id number] [address] [facility] 629[address]Lksfucyg PhosphataseOct2024 11:26amOctober 2024 3:27pm94 U/Y07-937BcacjreikMedina Hospital Ctr [id number] [address] [facility] [address]Gsciqrswgrb LevelOctober 2024 11:26amOctober 2024 3:49yk018 mg/dLAbove high -529Xtbp less than 200 mg/dl low riskChol 201-239 mg/dl borderline riskChol 240 mg/dl and greater high riskMedina Hospital Ctr [id number] [address] [facility] 76[address]UCX CholesterolOctober 2024 11:26amOctober 2024 3:27pm83 mg/qD75-90SIX CHOL ATP-III CLASSIFICATION Cardiovascular RiskHDL > or equal to 60 mg/dL LOWHDL < 40 mg/dL HIGHMedina Hospital Ctr [id number] [address] [facility] 49[address]Hkbpxvtavikff LevelOctober 2024 11:26amOctober 2024 3:27pm92 mg/dL0-149TRIG ATP III CLASSIFICATIONTRIG less than 150 mg/dL NormalTRIG 150-199 mg/dL Borderline highTRIG 200-500 mg/dL High TRIG greater than 500 mg/dL Very highStandard traceable to the Center for Disease Conrtrol and Prevention (CDC) test method.[facility] [id number] [address] [facility] [address]47[address]OEZ Cholesterol, CalculatedOctober 2024 11:26amOctober 2024 3:76zc377 mg/dLAbove high normal0-100LDL ATP III CLASSIFICATIONLDL less than 100 mg/dL OptimalLDL 100-129 mg/dL Near or above bmhdvaqSWR838-815 mg/dL Borderline highLDL 160-189 mg/dL HighLDL greater than 189 mg/dL Very high [facility] [id number] [address] [facility] 693[address]KDWK CholesterolOctober 2024 11:26amOctober 2024 3:27pm18 mg/dLMedina Hospital [facility] [id number] [address] [facility] 15211Shrylbwhotu/HDL RatioOctober 2024 11:26amOctober 2024 3:27pm2.8<5.0[facility] [id number] [address] [facility] 14620Cnrefic Stimulating Hormone 3rd GenOctober 2024 11:26March 04, 2025 3:41pm1.59 u[iU]/mL0.45-5.33[facility] [id number] [address] [facility] 7836798-Yllgrmw Vitamin D TotalOctober 2024 11:26amOctober 2024 3:55pm25.8 ng/mLBelow low hbtnze11-704QFDHLBZ D STATUS 25(OH)VITAMIN D RANGE (ng/mL) Deficient <20 Insufficient 20 to <89Puquqpphks55 to 100Reference: David MF,Mason NC, Susan SPANGLER, et al. Evaluation,treatment, and prevention of vitamin D deficiency; an Endocrine Society clinical practice guideline. JCEM. 2010; 96(7):1911-30.[facility] [id number] [address] [facility] 149[address]Ezlejvfw Creatinine Clearance (ChemOctober 2024 11:26am March 04, 2025 3:27pmN/[facility] [id number] [address] [facility] [address] Advance Directives Advance Directive Response Recorded Date/ Time Advance Directives No July 12 3:43pm Insurance Providers Guarantor Rosita Brown Address [address] [facility] [id number] Info.Home Phone: Payer Group Member ID Coverage Type Subscriber Relationship to Subscriber Effective Date Expiration Date [employer] [facility] Id: [id number] Kevin Id: [id number] [address] [facility] [address] Home Phone: Email: [email or web address] Encounters Encounter Location(s) Arrival/Admit Date Discharge/Departure Date Discharge/Departure Disposition Provider(s) Departed Clinical -Lab [place] March 04, 2025 11:25am March 04, 2025 11:26am Discharged to home care or self care (routine discharge) Sonny Aldrich DO Plan of Treatment Future Tests Future scheduled test information is unavailable Pending Tests Test Name Ordered Date Scheduled Date Hemoglobin A1c March 04, 2025 11:26am Estimated Average GlucoseOct2024 11:26am Future Visits Future appointment information is unavailable Future Procedures Future procedure information is unavailable Future Medications Future medication information is unavailable Patient Instructions Patient instructions are unavailable
[2025-03-08] VITALS (19 sets, daily range): BP systolic 126–188; BP diastolic 75–99; PULSE 64–85; TEMP 37; O2SAT 95–100; BMI 31.0
--- OUTSIDE RECORDS SUMMARY | 2025-03-08 16:43 | XMS_ITS | Clinical Summary ---
Author Organization [facility] Address [address] [place] [address] Phone Care Team Providers Care Front Office Manager Name Role Phone Unavailable Primary Care Provider Unavailabl e Social History Tobacco UseTypesPacks/DayYears UsedDateSmoking Tobacco: Never Assessed CommentsUnknownSex and Gender InformationValueDate RecordedSex Assigned at Not on fileLegal VhlMlpfkc97/25/2022 10:21 AM ESTGender IdentityNot on file Sexual OrientationNot on file Plan of Treatment Not on file
--- OUTSIDE RECORDS SUMMARY | 2025-03-08 16:43 | XMS_ITS | Clinical Summary ---
Author Organization [facility] Healthcare Address [address] [facility] [place] [address] Care Team Providers Care Cook Supervisor Name Role Phone Kencee Gautam Sonny PEDRO Primary Care Provider [phone] Allergies Active AllergyReactionsCriticalityNoted DateCommentsAmoxicillin-Pot Clavulanate Bhcxaugo87/15/2023 Other Reaction(s): Unknown Azryudnekmkq44/01/2015 Other Reaction(s): GI Upset Severe diarrhea Budesonide-Formoterol Bfngwilx14/15/2023 Other Reaction(s): Blood pressure Fncqvuqoa60/15/2023 Other Reaction(s): Unknown Hiwvooseko79/19/2014 Other Reaction(s): other, Unknown Fxvwirbkgvcsoz83/18/2004 Other Reaction(s): Unknown Clavulanic Acid07/12/2022 Other Reaction(s): diarrhea Jujzgckvu42/06/2023 Other Reaction(s): Spasm Other Reaction(s): eye brown pain, spasms Zipyeewpro45/06/2023 Other Reaction(s): blood pressure Iodinated Contrast FihkkGyun98/15/2014 Other Reaction(s): Other: See Comments, Unknown chest pain , increased HR, increased BP Other Reaction(s): Other: See Comments, Unknown Reaction RwbzabifyutwNeixyjym29/15/2023 Other Reaction(s): Unknown Mhasogrjf95/15/2023 Other Reaction(s): Unknown Rnfevvxpvvjoddnzou73/15/2023 Other Reaction(s): Unknown RcwewfjdlqemuPhmoohfl14/15/2015 Other Reaction(s): Unknown Had diarrhea and dizziness and funny feeling in head and arms Kejtyrvn22/03/2014 Other Reaction(s): Other: See Comments, Unknown CHEST PAIN AND INCREASED BLOOD PRESSURE Vqombkpqiv26/19/2014 Other Reaction(s): other, Unknown Kjutjdjciwk72/19/2014 Other Reaction(s): GI Upset, other Severe diarrhea Jaaoeydmf26/06/1079Xvioohvsqlxuiifm68/06/2023 Other Reaction(s): itching Sulfamethoxazole-UsyqwwckagfmNnticpi08/15/9991Rjfdsmssqsvs64/06/2023 Other Reaction(s): itching Valproic Acid07/12/2022 Other Reaction(s): Unknown Wound Dressing Rmoarewt15/15/2014 Other Reaction(s): Other: See Comments blisters Medications MedicationSigDispense QuantityRefillsLast FilledStart DateEnd DateStatus nebivolol (Bystolic) 5 MG tablet Take 2.5 mg by mouth in the morning.Active gabapentin (Neurontin) 100 MG capsule Take 100 mg by mouth in the morning and 100 mg before bedtime.Active esomeprazole (NexIUM) [address] capsule Take 20 mg by mouth in the morning. Take before meals. Do not open capsule.. Active loperamide (Imodium A-D) 2 MG tablet Take 2-4 mg by mouth 4 (four) times a day as needed for diarrheaActive magnesium 200 MG tablet Take by mouthActive Encounters DateTypeDepartmentCare MkiqUxxfdlhoams24/16/2025 9:30 AM EDTOffice Visit [facility] [address] [place] [id number] Keiko Cordova DO Encounter for gynecological examination without abnormal finding; Screening for malignant neoplasm of cervix; Encounter for screening mammogram for breast cancer; Yudddvq1901/22/2025amboo flowsheet [facility] [address] [place] [address] Keiko Cordova DO 01/22/2025Travelfrom Last 3 Months Family History Medical HistoryRelationNameCommentsBreast cancerFather's SisterRelationName StatusCommentsFather's Sister Social History Tobacco UseTypesPacks/DayYears UsedDateSmoking Tobacco: NeverSmokeless Tobacco: Never Tobacco Cessation:Counseling Given: Not Answered Alcohol UseStandard Drinks/WeekCommentsNot Currently0 (1 standard drink = 0.6 oz pure alcohol)PHQ-2AnswerDate RecordedPatient Health Questionnaire-2 Score0 4CommentsNoSex and Gender InformationValueDate RecordedSex Assigned at BirthNot on fileLegal GilRewfjk87/15/2023 7:01 PM EDTGender Identity Covnfv9207/21/2022 7:01 PM EDTSexual OrientationNot on file Last Filed Vital Signs Vital SignReadingTime TakenCommentsBlood Wkkhyylg642/80001/22/2025 10:06 AM EDT Pulse--Temperature--Respiratory Rate--Oxygen Saturation--Inhaled Oxygen Concentration--Jxxalf51.6 kg (202 lb)01/22/2025 10:06 AM ZJNSbpkku364.2 cm (5' 7 )06/13/2024 11:15 AM ESTBody Mass Index31.64006/13/2024 11:15 AM EST Plan of Treatment DateTypeDepartmentCare Team (Latest Contact Info)Zbekzhfmlez72/01/2026 9:45 AM EDTOffice Visit [facility] [address] [place] [phone] Keiko Cordova DO [address] [place] [address] Procedures Procedure NamePriorityDate/TimeAssociated DiagnosisCommentsPOCT URINALYSIS KPEVITTDKbxguda13/16/2025 10:01 AM EDT Dysuria IGP, RFX APTIMA HPV SNPCJwaexhl20/16/2025 12:00 AM EDT Screening for malignant neoplasm of cervix from Last 3 Months Results * POCT urinalysis dipstick manually resulted (01/22/2025 10:01 AM EDT)Component ValueRef RangeTest MethodAnalysis TimePerformed AtPathologist SignatureColor, UAYellowClarity, UAClearGlucose, UANegativeNegative - 2000(110) ++++ mg/dL Bilirubin, UANegativeNegative - 4(70) +++ mg/dLKetones, UANegativeNegative - 160(16) ++++ mg/dLSpec Grav, UA1.0301 - 1.03Blood, UANegativeNegative - 50 Miguel/mcLpH, UA5.05 - 9Protein, UANegativeNegative - 2000(20) ++++ mg/dL Urobilinogen, UA0.20.2 - 12 mg/dLLeukocytes, UATraceNegative - 500+++ Krista/mcL Nitrite, UANegativeNegative - PositiveSpecimen (Source)Anatomical Location / LateralityCollection Method / VolumeCollection TimeReceived TimeUrine 01/22/2025 10:01 AM EDT Narrative Authorizing ProviderResult TypeResult StatusKathleen E Rinkes DOPOINT OF CARE TEST ENTER/EDIT ORDERABLESEdited Result - Final * IGP, RFX APTIMA HPV ASCU (01/22/2025 12:00 AM EDT)ComponentValueRef RangeTest MethodAnalysis TimePerformed AtPathologist SignatureDiagnosis:CommentLABC[facility]P Comment: NEGATIVE FOR INTRAEPITHELIAL LESION OR MALIGNANCY. CELLULAR CHANGES ASSOCIATED WITH ATROPHY ARE PRESENT. Specimen Adequacy:CommentLABCORPComment: Satisfactory for evaluation. ??Endocervical component may not be distinguished in cases of atrophy. Clinician Provided ICD10:CommentLABCORPComment:Z12.4Performed By:CommentLABC[facility] Comment:Miki Brasher, Director [employer] ([facility])Cyto Comments.LABCORPNote:CommentL[facility] Comment: The Pap smear is a screening test designed to aid in the detection of premalignant and malignant conditions of the uterine cervix. ??It is not a diagnostic procedure and should not be used as the sole means of detecting cervical cancer. ??Both false-positive and false-negative reports do occur. Test Methodology:CommentLABCORPComment: This liquid based ThinPrep(R) pap test was screened with the use of an image guided system. .CommentLABCORPComment: The HPV DNA reflex criteria were not met with this specimen result therefore, no HPV testing was performed. Specimen (Source)Anatomical Location / LateralityCollection Method / Volume Collection TimeReceived Time/ Narrative [facility] - 01/25/2025 7:07 PM EDT Performed at: [address] [place] ??[id number] Cloud [employer] Architect: Mary Mora MD, Phone: ??[phone] Specimen Comment: [id number] Specimen Comment: No. of containers..01 ThinPrep Vial Authorizing ProviderResult TypeResult StatusKatyamini JUAREZ BLOOD ORDERABLESFinal ResultPerforming OrganizationAddressCity/State/ZIP CodePhone Number [facility] from Last 3 Months Insurance Care Teams Team MemberRelationshipSpecialtyStart DateEnd Gautam Wren DO [facility]12/21/22
--- OUTSIDE RECORDS SUMMARY | 2025-03-08 16:43 | XMS_ITS | Clinical Summary ---
Author Organization [facility] Address [address] [place] [address] Care Team Providers Care Design/Animation Instructor Name Role Phone Gautam Wren DO Primary Care Provider [phone] Allergies Active AllergyReactionsCriticalityNoted DateCommentsAmoxicillin-Pot Clavulanate Jkawkwia49/15/2023 Other Reaction(s): Unknown XtimguyvmvgpNoojn60/01/2015 Severe diarrhea Other Reaction(s): GI Upset Severe diarrhea HsxrsebijaOgjcn34/02/2024Budesonide-TrisoiueaqCpkhj89/28/2024CelecoxibUnknown 12/21/2022 Other Reaction(s): Unknown CephalosporinsOther,Qmkafke5412/25/2003 Other Reaction(s): other, Unknown Other Reaction(s): Unknown Clavulanic FmxwDxiqqhso62/06/2023 Other Reaction(s): diarrhea CxvavggxpKstnm04/06/2023 Other Reaction(s): Spasm Other Reaction(s): eye brown pain, spasms NugojwcrgeKaybsyr37/28/5214BdqtwnutkhOxlqz69/06/2023 Other Reaction(s): blood pressure Iodinated Contrast MediaOther,HrvcdbeEhrk04/15/2014 chest pain , increased HR, increased BP Other Reaction(s): Other: See Comments, Unknown chest pain , increased HR, increased BP Other Reaction(s): Other: See Comments, Unknown Reaction LevofloxacinDiarrhea,Other12/21/2022 Other Reaction(s): Unknown ZfvkxdysqPykfuax48/15/2023 Other Reaction(s): Unknown IzbgxhytszvddIsyofplp98/15/2015 Had diarrhea and dizziness and funny feeling in head and arms Other Reaction(s): Unknown Had diarrhea and dizziness and funny feeling in head and arms MorphineOther,Lzggyck0803/11/2014 CHEST PAIN AND INCREASED BLOOD PRESSURE Other Reaction(s): Other: See Comments, Unknown CHEST PAIN AND INCREASED BLOOD PRESSURE HwjdyhfhsunxpoCflgr70/02/2024OxybutyninOther,Lteemch1804/26/2014 Other Reaction(s): other, Unknown Sulfa (Sulfonamide Antibiotics)Itching,Other07/12/2022 Other Reaction(s): itching Sulfamethoxazole-EotjykzbkcsyKdhciun23/15/2882YolitlknanrtTvbooyp39/06/2023 Other Reaction(s): itching Medications MedicationSigDispense QuantityRefillsLast FilledStart DateEnd DateStatus gabapentin (Neurontin) 100 mg capsule Take 1 capsule twice a day by oral route for 90 days.12/24/2015Active famotidine (Pepcid) 20 mg tablet Take 20 mg by mouth two times daily.Active simethicone (Mylicon) 80 mg chewable tablet Chew 80 mg every 6 (six) hours if needed for flatulence.Active Calcium 500 With D 500 mg-10 mcg (400 unit) tablet Take 1 tablet by mouth in the morning.08/03/2023ctive nebivolol (Bystolic) 5 mg tablet Indications:Palpitations,POTS (postural orthostatic tachycardia syndrome), Pulmonary hypertension (CMS/HCC)Take 0.5 tablets (2.5 mg) by mouth once daily as directed. 45 tablet ctive Active Problems No known active problems Social History Tobacco UseTypesPacks/DayYears UsedDateSmoking Tobacco: NeverPassive Smoke Exposure: NeverSmokeless Tobacco: NeverAlcohol UseStandard Drinks/WeekComments Never0 (1 standard drink = 0.6 oz pure alcohol)Humiliation, Afraid, Rape, and Kick questionnaireAnswerDate RecordedWithin the last year, have you been afraid of your partner or ex-partner?No04/23/2024Within the last year, have you been humiliated or emotionally abused in other ways by your partner or ex-partner?No 04/23/2024Within the last year, have you been kicked, hit, slapped, or otherwise physically hurt by your partner or ex-partner?No04/23/2024Within the last year, have you been raped or forced to have any kind of sexual activity by your part ner or ex-partner?No4PHQ-2AnswerDate RecordedPatient Health Questionnaire-2 Ulhwb90306/24/2023CommentsUnknownSex and Gender InformationValueDate RecordedSex Assigned at BirthNot on fileLegal SexFemale 11/04/2021 10:04 PM EDTGender IdentityNot on fileSexual OrientationNot on file Last Filed Vital Signs Vital SignReadingTime TakenCommentsBlood Flwcothz928/7704/23/2024 9:22 AM EST Gcvya919004/23/2024 9:22 AM ESTTemperature--Respiratory Rate--Oxygen Saturation-- Inhaled Oxygen Concentration--Lldcnj22.7 kg (200 lb)04/23/2024 9:16 AM ESTHeight 170.2 cm (5' 7 )04/23/2024 9:16 AM ESTBody Mass Index31.32106/24/2023 9:16 AM EST Plan of Treatment Health MaintenanceDue DateLast DoneCommentsCT Rrthktcazgta1965Colonoscopy 1965Colorectal Cancer Rtvzucedy1965FIT-DNA1965FIT1965 FOBT1965Medicare Annual Wellness (AWV)1965 2504Eevabbnfxmacs1965Pap Smear1986Cervical Cancer Acoddndyl57/30/1995HPV/Gljxgl6302/05/1995Zoster Vaccines (1 of 2)2015COVID-19 Vaccine ( - season)2025 Influenza Vaccine (#1)2025Depression Gafoirnzg76/ Zuyylordo89/dult Oywuzbm92HIB VaccinesAged OutNo longer eligible based on patient's age to complete this topicHPV Vaccines Aged OutNo longer eligible based on patient's age to complete this topicIPV VaccinesAged OutNo longer eligible based on patient's age to complete this topic Meningococcal B VaccineAged OutNo longer eligible based on patient's age to complete this topicMeningococcal VaccineAged OutNo longer eligible based on patient's age to complete this topicPneumococcal Vaccine: Pediatrics (0 to 5 Years) and At-Risk Patients (6 to 64 Years)Aged OutNo longer eligible based on patient's age to complete this topicRotavirus VaccinesAged OutNo longer eligible based on patient's age to complete this topic Insurance Care Teams Team MemberRelationshipSpecialtyStart DateEnd Date Gautam Wren DO [address] [place] [address] PCP - GeneralFamily Yqjgvhuk17/28/24
--- OUTSIDE RECORDS SUMMARY | 2025-03-08 16:45 | XMS_ITS | CCD ---
Author Organization [facility] Care Team Providers Care Blood Typer Name Role Phone GAUTAM DILL Unavailable Unavailable GAUTAM DILL Unavailable Unavailable Gautam Dill Unavailable Aniyah, DO Florez Primary Care Provider Aniyah, DO Florez Attending Provider [phone] DO Gautam Dill Primary Care Provider Aniyah, DO Florez Attending Provider Self, Referral Attending Provider Unavailable DO Gautam Dill Primary Care Provider [phone] Aniyah, DO Florez Attending Provider [phone] BELÉN, DR YUNIEL Ying Admitting Unavailable BELÉN, DR YUNIEL Ying Attending Unavailable BELÉN, DR YUNIEL Ying Consulting Unavailable FIORELLA MA Admitting Unavailable FIORELLA MA Attending Unavailable ANIYAH, DR FLOREZ Primary Care Unavailable [facility], DR FAROOQ Field Consulting Unavailable FIORELLA MA Consulting Unavailable ANIYAH, DR FLOREZ Admitting Unavailable ANIYAH, DR FLOREZ Attending Unavailable ANIYAH, DR FLOREZ Primary Care Unavailable Aniyah, DO Florez Primary Care Provider DO Gautam Dill Attending Provider Gautam Dill DO Primary Care Provider Gautam Dill DO Primary Care Provider DO Gautam Dill Primary Care Provider [phone] DO Gautam Dill Attending Provider Gautam Dill DO Primary Care Provider David DURHAM, Navneet Dennis Unavailable Kuns, DO Gautam Primary Care Provider Kuns, DO Gautam Attending Provider [phone] Kuns DO, Gautam P Primary Care Provider Kuns, DO Gautam Referring Provider [phone] Kuns, DO Gautam Primary Care Provider [phone] Kuns, DO Gautam Attending Provider Ly, DO Tina Ba Attending Provider Gautam Dill MD Primary Care Provider [phone] Guido DURHAM, Ziad Unavailable IRIS SEQUEIRA Attending Unavailable RAULITO, PIETRO Referring Unavailable RAULITO, PIETRO Referring Unavailable PIETRO ELLER Attending Unavailable Eldas DO, Gautam Primary Care Provider [phone] Gautam Dill DO Attending Provider Kuns DOGautam P Primary Care Provider [phone] Rinkes DO Keiko Attending Provider [phone] David DURHAM, Navneet Dennis Unavailable RINKES, KEIKO E Attending Unavailable RINKES, KEIKO E Attending Unavailable CHANTALEIDELORES A Referring Unavailable RINKES, KEIKO E Referring Unavailable RINKES, KEIKO E Attending Unavailable Kuns DO, Gautam Primary Care Provider [phone] Gautam Dill DO Attending Provider [phone] Kuns, Gautam Attending Unavailable Kuns, Gautam Admitting Unavailable Kuns, Gautam Primary Care Unavailable Kuns, Gautam Attending Unavailable Kuns, Gautam Admitting Unavailable Kuns, Gautam Primary Care Unavailable Rinkes, Keiko Admitting Unavailable Rinkes, Keiko Attending Unavailable Kuns, Gautam Primary Care Unavailable Kuns, Gautam Attending Unavailable Kuns, Gautam Admitting Unavailable BUCK, REYNA Referring Unavailable KUNS, GAUTAM P Primary Care Unavailable WING FARRELL T Attending Unavailable FARRELLWING T Referring Unavailable KUNS, GAUTAM P Primary Care Unavailable FARRELLWING T Referring Unavailable KUNS, GAUTAM P Primary Care Unavailable BUCK, REYNA Referring Unavailable KUNS, AGUTAM P Primary Care Unavailable TAIMEH, ZIAD Attending Unavailable ELDAS, GAUTAM P Primary Care Unavailable KIRUPAHSUZAN, PRADHAB Attending Unavailable KIRUPAHSUZAN, PRADHAB Referring Unavailable KUNS, GAUTAM P Primary Care Unavailable WING FARRELL Attending Unavailable KUNS, GAUTAM P Primary Care Unavailable TAIMEH, ZIAD Referring Unavailable KUNS, GAUTAM P Primary Care Unavailable TAIMEH, ZIAD Referring Unavailable KUNS, GAUTAM P Primary Care Unavailable TAIMEH, ZIAD Referring Unavailable KUNS, GAUTAM P Primary Care Unavailable TAIMEH, ZIAD Attending Unavailable KUNS, GAUTAM P Primary Care Unavailable KUNS, GAUTAM P Primary Care Unavailable ZIADA, KHALED M Attending Unavailable ELDAS, GAUTAM P Primary Care Unavailable ZIADA, KHALED M Referring Unavailable KUNS, GAUTAM P Primary Care Unavailable ZIADA, KHALED M Attending Unavailable TAIMEH, ZIAD Referring Unavailable KUNS, GAUTAM P Primary Care Unavailable Allergies Allergy ClassificationReported Allergen(s)Allergy TypeDate of OnsetReaction(s) FacilityAdhesive Tape (1 source)Adhesive TapeSubstance Yllugpi30-37-4423Thfys: [facility] CenterCephalosporins (antibiotic) (1 source)Cephalosporins (Antibiotic)Drug Jtzijdi10-79-3878SxxbkjmGzjtqqeno ClinicContrast Media (1 source)Contrast mediaSubstance Hwexaiq48-87-7548Dysro: See [facility] CenterMacrolides (antibiotic) (1 source)AzithromycinDrug Pldsuie20-11-6360DASelect Medical Specialty [facility] Nitroimidazoles (antibiotic) (1 source)metroNIDAZOLEDrug Iutiuuh54-12-1814ZqynvouwTrznjzctm Clinic Work Phone: Opioid Agonists (1 source)MorphineDrug Opxvatu52-31-8006Yosvq: See [facility] Penicillins (antibiotic) (1 source)PenicillinsDrug Jyvwfgg54-66-2305XTSelect Medical Specialty [facility] (16 sources)Amoxicillin / ClavulanateDrug AllergydiBarney [facility] [place] [facility] Other (20 sources)Budesonide / formoterolDrug Lebspxi98-98-9853Fyasd: See [facility] (20 sources)celecoxibDrug AllergyUnknoGood Samaritan [facility] [place] [facility] Other (20 sources)CephalexinDrug AllergySaint Joseph's Hospital [place] [facility] Other (20 sources)cloNIDine; Translations: [CLONIDINE]Drug Mfeedri89-22-5123Vdetw: See [facility] (20 sources)Contrast mediaPropensity to adverse reactionsSaint Joseph's Hospital [place] [facility] Other (20 sources)levoFLOXacinDrug Allergysevere [facility] [place] [facility] Other (20 sources)LORazepam; Translations: [LORAZEPAM]Drug Ulhcryl50-05-5691Ldaqq: See [facility] (20 sources)methylPREDNISoloneDrug AllergySaint Joseph's Hospital [place] [facility] Other (20 sources)metroNIDAZOLE; Translations: [METRONIDAZOLE]Drug Bfkyjgv05-24-6792 [facility] (20 sources)Morphine; Translations: [MORPHINE]Drug Fakyumh02-63-6245Sorui: See [facility] (20 sources)NITROFURANTOIN, MACROCRYSTALS / Nitrofurantoin, MonohydrateDrug AllergybradycarUniversity Hospitals [facility] [place] [employer] Other (20 sources)oxybutyninDrug AllergySaint Joseph's Hospital [place] [facility] Other (20 sources)rofecoxibDrug AllergySaint Joseph's Hospital [place] [facility] Other (20 sources)Sulfamethoxazole / TrimethoprimDrug Mcnhwit03-13-0300FwhfehgVdyew Coast [place] [facility] Other (20 sources)ValproateDrug AllergyUnkProvidence City Hospital [place] [facility] Other (20 sources)surgical tape/electrode padsPropensity to adverse reactionsHca Florida Highlands Hospital [place] [facility] Other (20 sources)Sulfonamides (Antibiotic); Translations: [SULFA (SULFONAMIDE ANTIBIOTICS)]Allergy to qcaudepoz46-40-1179Osilbvu, Other: See [facility] (20 sources)Iodinated Contrast Media; Translations: [IODINATED CONTRAST MEDIA] Allergy to uullkeiek93-66-8726Gzwhuhc [facility] (6 sources)Amoxicillin / ClavulanateDrug AllergydiarrAdventHealth Wesley Chapel RepRegen Other (11 sources)CephalexinDrug Uxrrsdt80-34-4722lvzuwgmTej [facility] Repository (1 source)PenicillinDrug AllergyThe [facility] Repository (20 sources)Adhesive Tape; Translations: [ADHESIVE TAPE (ROSINS)]Allergy to -18-0200Enduz: See [facility] (20 sources)Azithromycin; Translations: [AZITHROMYCIN]Drug Yjzehce29-64-6962DG [facility] (20 sources)Cephalosporins (Antibiotic); Translations: [CEPHALOSPORINS]Drug Czpmgyf07-72-8437SnqqnftNnhtdyhwo Clinic (20 sources)Contrast media; Translations: [CONTRAST DYE]Drug Osqpcvb29-06-6785 Other: See Comments, [facility] (20 sources)metroNIDAZOLE; Translations: [METRONIDAZOLE HCL]Drug Allergy 35-32-9863LsvsequjYjooqhzxs Clinic Work Phone: (20 sources)Penicillins; Translations: [PENICILLINS]Drug Uxzcwdjbhmh16-71-0622GV [facility] (11 sources)Adhesive Tape; Translations: [adhesive tape]Allergy to substance 98-82-4633ilqwucvNkmntmdlzProtestant Deaconess Hospital (11 sources)Amoxicillin; Translations: [amoxicillin]Drug Lcbncas69-25-4002 [facility] (12 sources)Budesonide; Translations: [BUDESONIDE]Drug Jjmehpr80-01-1330gdhrp [facility] (20 sources)celecoxib; Translations: [CELECOXIB]Drug Wvkkrmi75-19-2496Vwbzu: See [facility] (20 sources)Clavulanate; Translations: [CLAVULANIC ACID]Drug Wncmaof90-34-5406 [facility] (20 sources)formoterol; Translations: [FORMOTEROL]Drug Ceeqdyc82-18-9331Cmrdj: See [facility] (20 sources)levoFLOXacin; Translations: [LEVOFLOXACIN]Drug Mcorydy81-77-4990 Diarrhea, Other: See [facility] (20 sources)methylPREDNISolone; Translations: [methylprednisolone]Drug Allergy 06-26-2616TX Upset, Other: See [facility] (20 sources)Nitrofurantoin; Translations: [NITROFURANTOIN]Drug Clwuuqs18-20-2731 Other: See [facility] (20 sources)oxybutynin; Translations: [OXYBUTYNIN]Drug Hajjrhp68-29-5053Bvfyz: See [facility] (20 sources)rofecoxib; Translations: [rofecoxib]Drug Zduyorw29-26-3318aexetalDayton Osteopathic Hospital (20 sources)Sulfamethoxazole; Translations: [sulfamethoxazole]Drug Allergy 28-17-2177fvpxmqsVywtxvvhdMount Carmel Health System (20 sources)Trimethoprim; Translations: [TRIMETHOPRIM]Drug Zzfckwu50-39-9703 [facility] (11 sources)Valproate; Translations: [divalproex sodium]Drug Aqcntpp56-83-7444 [facility] (15 sources)CephalexinDrug Tsswrxz99-79-0820UF[facility] (16 sources)Cephalosporins (Antibiotic)Drug Omfmukp55-78-5286LjjhxswQZIW Healthcare (15 sources)LorazepamAllergy to vivarykco10-08-7957HEJO [facility] (15 sources)PenicillinsDrug Xrxreyohmuo55-67-1947QVRN [facility] (15 sources)ValproateDrug Xkjyzti74-46-8521AHTY [facility] (16 sources)Amoxicillin-Pot Clavulanate; Translations: [AMOXICILLIN-POT CLAVULANATE]Drug Qcaspao97-66-0756JkdsysvoMGWC Healthcare (15 sources)Budesonide-Formoterol FumarateDrug Wsfqcmw44-43-0812QQSG Healthcare (15 sources)Wound Dressing AdhesiveDrug Gbxuaje17-19-1987KJPZ Healthcare (20 sources)Latex; Translations: [LATEX]Drug Geuowkw57-02-6474Cfndn: See [facility] (2 sources)Budesonide / formoterol; Translations: [BUDESONIDE-FORMOTEROL]Drug Cwqepin42-17-6558DnaqhpzbniACMC [facility] Repository (1 source)Sulfamethoxazole / Trimethoprim; Translations: [SULFAMETHOXAZOLE-TRIMETHOPRIM]Drug Sgloqqv31-64-1661BpbkdpeaycACMC Healthcare System [facility] Repository (5 sources)DIVALPROEX; Translations: [DIVALPROEX]Propensity to adverse reactions to drug (disorder)83-89-8165AvftxosWffxczdhdxLakeHealth [facility] Repository (13 sources)PenicillinsDrug Kvrwxytagti94-62-3034GE [facility] (3 sources)Allantoin; Translations: [allantoin]Drug Tdfvoaf53-34-7746yhfClermont County Hospital (3 sources)Camphor; Translations: [camphor]Drug Ptvnfci36-85-4962dns [facility] (3 sources)dimethicone; Translations: [dimethicone]Drug Ydidvxd31-85-3400xamClermont County Hospital (3 sources)Menthol; Translations: [menthol]Drug Fmyatse38-55-9652knrChildren's Hospital for Rehabilitation (3 sources)oxybenzone; Translations: [oxybenzone]Drug Pqlcsyh35-40-4473brrClermont County Hospital (3 sources)phenol; Translations: [phenol]Drug Ltorfdh61-20-2544xsiChildren's Hospital for Rehabilitation (3 sources)aloe vera; Translations: [aloe vera]Allergy to yznrwtprb45-38-8676byoClermont County Hospital (3 sources)chamomile flower; Translations: [chamomile flower]Allergy to bbpmoiyzs30-89-1299zvxClermont County Hospital (3 sources)herbal complex no.57; Translations: [herbal complex no.57]Allergy to mbqkwheqf78-41-9284cfwClermont County Hospital (3 sources)homosalate; Translations: [homosalate]Allergy to pfojebdhk33-07-6557 [facility] (3 sources)meradimate; Translations: [meradimate]Allergy to aftekwnxd28-82-7826 [facility] (3 sources)octinoxate; Translations: [octinoxate]Allergy to ttakofztv39-15-8312 [facility] (3 sources)octyl salicylate; Translations: [octyl salicylate]Allergy to wyrfjitwa05-48-0248aawClermont County Hospital (3 sources)padimate O; Translations: [padimate O]Allergy to bpnvbljre48-88-6325 lip swellingUniversity Hospitals [facility] (3 sources)petrolatum,hydrophilic; Translations: [petrolatum,hydrophilic]Allergy to xichecklq27-75-7740clk swellingUniversity Hospitals [facility]ar[facility] (1 source)CephalexinDrug Rquwnua98-62-9876YfkktpimzUniversity Hospitals [facility]ar[facility] Center Repository (1 source)cloNIDineDrug Melqsai46-65-6641RaxfooxccUniversity Hospitals [facility]aritan [facility] Center Repository (1 source)LORazepamDrug Jujrodh01-84-7300EuhbinuysUniversity Hospitals Samaritan Medical Center Repository (1 source)metroNIDAZOLEDrug Tgxxdkj48-49-0444TyvgmblwrUniversity Hospitals Samaritan Medical Center Repository (1 source)MorphineDrug Uzgfcjl40-74-7838VpffhbppvUniversity Hospitals Samaritan Medical Center Repository Medications Current Medications MedicationDrug Class(es)DatesSig (Normalized)Sig (Original)Acetaminophen (20 sources)acetaminophen (TYLENOL 8 HOUR ORAL) Take by mouth as needed. Active ALPRAZolam 0.25 mg oral tablet (12 sources)BenzodiazepineStart: 45-95-3982zfkg 1 tablet by mouth twice daily as neededXanax 0.25 MG 1 tablet Orally Twice a day prn for 12 days Jan, Activeazithromycin 250 mg oral tablet (20 sources)Macrolide AntimicrobialStart: 40-55-1528Zmfpk: 04-04-2024 End: 00-73-5204Fkjshtywutps (Zithromax) 250 mg tablet Discontinued 0 PO .COMPLEX 6 April 04, 2024 1:00am April 27, 2024 12:37pm For 250 mg dose pack: take 500 mg today (day 1), then 250 mg for 4 days (days 2-5) POStart: 02-14-2024 End: 73-52-5244qjtt 1 tablet by mouth onceStart: 02-14-2024 End: 38-25-6916wtki 1 tablet by mouth every hour as neededAzithromycin (Zithromax) 500 mg tablet Discontinued 500 MG PO Daily as needed for dental procedure 1 March 15, 2024 1:00am April 27, 2024 11:59am take 1 tablet one hour prior to dental procedureStart: 10-19-2023 End: 83-28-9529wigr 1 tablet by mouth every hourAzithromycin (Zithromax) 500 mg tablet Discontinued 500 MG PO .COMPLEX 1 1 October 19, 2023 12:00am February 08, 2024 11:25am 500 mg orally take 1 tablet one hour prior to dental procedure; Start: 08-08-2023 End: 88-04-7574oqcv 1 tablet by mouth once dailyAzithromycin (Zithromax) 500 mg tablet Discontinued 500 MG PO Daily 1 August 08, 2023 12:00am 2023 2:29pm one tablet one hour prior to procedureStart: 07-20-2023 End: 21-99-2236Vazyuoxfygac (Zithromax Z-Irving) 250 mg tablet Discontinued 0 PO .COMPLEX 6 September 26, 2023 2:47pm October 19, 2023 8:38am For 250 mg dose pack: take 500 mg today (day 1), then 250 mg for 4 days (days 2-5) POStart: 08-04-2022 Zithromax Z-Irving 250 MG as directed Orally as directed Jul, ActiveStart: 05-34-1443Hrhwfkzew Z-Irving 250 MG as directed Orally as directed May, ActiveStart: 27-87-8605Chsekehab 500 MG 1 tablet Orally one hour before procedure Feb, Activebetamethasone 1 mg/ml topical cream (6 sources)CorticosteroidStart: 56-84-7270Bmvym: 63-72-5526twhxyyi carbonate 1500 mg / cholecalciferol 800 unt oral tablet (11 sources)Vitamin D End: 65-07-8225Eeiqfhh Carb-Cholecalciferol (Calcium 600/Vitamin D3) 600-20 MG- MCG tablet Take by mouth 09/11/2024Discontinuedcholecalciferol 0.05 mg oral capsule (20 sources)Vitamin DStart: 82-11-2361zmnx 2 capsules by mouth once dailytake 2 capsules by mouth every twenty-four hoursVitamin D 50 MCG (1999 UT) 2 capsule Orally Once a day ActiveCompression stockings, 20-30mmHg, calf 20-30mmHg (20 sources)Start: 26-33-6413Iegby: 33-24-7600Ynbaslkkech stockings, 20-30mmHg, calf 20-30mmHg externally daily as directed for 3 months Jan, Active doxycycline hyclate 100 mg oral capsule (18 sources)Tetracycline-class DrugStart: 16-20-0608qecw 1 capsule by mouth twice dailyStart: 73-24-6404gsnu 1 capsule by mouth every twelve hours Doxycycline Hyclate 50 MG 1 capsules Orally Twice a day for 5 days Aug, ActiveStart: 50-80-4301kdqc 1 tablet by mouth every twelve hoursDoxycycline Hyclate 50 MG 1 tablet Orally Twice a day for 10 day(s) May, Active esomeprazole 40 mg delayed release oral capsule (20 sources)Proton Pump InhibitorStart: 29-06-1288ckly 1 capsule by mouth once dailyStart: 04-15-2017 End: 33-27-2072easz 1 capsule by mouth once dailyEsomeprazole Magnesium (Nexium) 20 mg Capsule,Delayed Release(Dr/Ec) Discontinued 20 MG PO Daily April 15, 2017 1:00am October 19, 2023 8:38am End: 10-25-1343royunnivgphn magnesium (NEXIUM ORAL) Take 1 tablet by mouth as needed. 0 08/08/2023 Discontinuedesomeprazole magnesium (NEXIUM ORAL) Take 1 tablet by mouth as needed. 0 ActiveComment on above:Take 1 tablet by mouth as needed.gabapentin 100 mg oral capsule (20 sources)Anti-epileptic AgentStart: 59-30-0145ebgs 1 capsule by mouth every twelve hoursGabapentin 100 mg 1 tablet Orally BID for 90 days Mar, ActiveStart: 12-24-2015 End: 66-04-2460lfle 1 capsule by mouth once dailyGabapentin 100 mg Capsule Discontinued 100 MG PO Daily April 15, 2017 1:00am April 24, 2024 6:21pmComment on above:Take 1 capsule by mouth once daily.ibuprofen 800 mg oral tablet (20 sources)Nonsteroidal Anti-inflammatory DrugStart: 29-28-4653ubqh 1 tablet by mouth every eight hours as needed for painStart: 09-27-2023 End: 76-41-0050krlq 1 tablet by mouth three times daily at mealtime as needed Ibuprofen 800 mg tablet Discontinued 800 MG PO Three times daily September 27, 2023 12:00am February 08, 2024 11:26am FreeTextSi tablet with food or milk as needed Orally Three times a day; Note: Source Status: Provider: Aniyah Dennis Start: 04-25-2018 End: 08-77-4359vdtw 1 tablet by mouth every six hours as neededibuprofen (MOTRIN) 600 mg tablet Take 1 tablet by mouth every 6 hours as needed for Pain. Take withfood. 50 tablet 04/25/2018 10/05/2024 Discontinuedtake 1 tablet by mouth three times daily at mealtime as neededIbuprofen 800 MG 1 tablet with food or milk as needed Orally Three times a day for 90 day(s) prn ActiveComment on above:Take 1 tablet by mouth every 6 hours as needed for Pain. Take with food. Iron (2 sources)take 1 tablet by mouth once dailyIron 325 (65 Fe) MG 1 tablet Orally Once a day Activelansoprazole (1 source)Proton Pump Inhibitortake 1 tablet by mouth once daily as needed lansoprazole (PREVACID PO) Take 1 tablet by mouth once daily as needed (prn). ActiveMagnesium (7 sources)magnesium 200 MG tablet Take by mouth ActiveMagnesium glycinate (20 sources)take 240 mg by mouth once dailyMAGNESIUM GLYCINATE ORAL Take 240 mg by mouth once daily. High absorption ActiveMultiple Vitamins-Minerals (multivitamin with minerals) tablet (3 sources) End: 31-89-0714mzob 1 tablet by mouth once dailyMultiple Vitamins-Minerals (multivitamin with minerals) tablet Take 1 tablet by mouth Daily 09/11/2024 Discontinuedtake 1 tablet by mouth once dailyMultiple Vitamins-Minerals (multivitamin with minerals) tablet Take 1 tablet by mouth Daily Activemv- min/iron/folic/calcium/vitK (WOMEN'S MULTIVITAMIN ORAL) (20 sources)take 1 tablet by mouth once dailymv-min/iron/folic/calcium/vitK (WOMEN'S MULTIVITAMIN ORAL) Take 1 tablet by mouth once daily. Activenebivolol 5 mg oral tablet (20 sources)Start: 10-25-2024 End: 95-71-9243cdnb 1 tablet by mouth onceStart: 04-27-2024 End: 46-53-1799pqxd 2.5 mg by mouth once dailyNebivolol 5 mg tablet Discontinued 2.5 MG PO Daily April 27, 2024 12:37pm October 25, 2024 2:38pmStart: 04-15-2017 End: 94-25-9447gsnj 1 tablet by mouth once dailyNebivolol 5 MG tablet Discontinued 5 MG PO Daily April 15, 2017 1:00am April 27, 2024 12:37pm Comment on above:Take 5 mg by mouth once daily.predniSONE 10 mg oral tablet (12 sources)Start: 23-01-7999isyw 1 tablet by mouth every twenty-four hours predniSONE 10 MG 1 tablet Orally Once a day for 5 day(s) Apr, Active valACYclovir 1000 mg oral tablet (2 sources)Herpesvirus Nucleoside Analog DNA Polymerase Inhibitor, Herpes Simplex Virus Nucleoside Analog DNA Polymerase Inhibitor, Herpes Zoster Virus Nucleoside Analog DNA Polymerase InhibitorStart: 52-91-6371Ytgcwwx D 50 MCG (1999) (11 sources)take 2 capsules by mouth once dailyVitamin D 50 MCG (1999) 2 capsule Orally Once a day Active Completed/Discontinued Medications MedicationDrug Class(es)DatesSig (Normalized)Sig (Original)chlordiazePOXIDE hydrochloride 5 mg / clidinium bromide 2.5 mg oral capsule (9 sources)Anticholinergic, BenzodiazepineStart: 10-19-2023 End: 07-05-5660Exiubaquwgkzsljo-Clidinium (Librax (With Clidinium)) 5-2.5 mg capsule Discontinued 1 CAP PO Twice daily as needed for abdominal pain 30 15 0 October 19, 2023 12:00am February 08, 2024 11:25am DiarrheaRight upper quadrant abdominal pain Left lower quadrant abdominal pain Diarrhea, unspecified Right u pper quadrant pain Left lower quadrant painfamotidine 20 mg oral tablet (9 sources)Histamine-2 Receptor AntagonistStart: 10-19-2023 End: 59-35-9625nqkh 1 tablet by mouth once daily before mealtimeFamotidine (Pepcid Ac) 20 mg tablet Discontinued 20 MG PO Daily 60 0 October 19, 2023 12:00am February 08, 2024 11:26am OTCferrous sulfate 325 mg oral tablet (20 sources)Start: 04-18-2017 End: 30-26-5820sfij 1 tablet by mouth once dailyFerrous Sulfate (Iron) 325 mg (65 mg iron) Tablet Discontinued 325 MG PO Daily April 18, 2017 1:00am October 19, 2023 8:39amStart: 12-24-2015 End: 94-68-6531prjh 1 tablet by mouth once dailyferrous sulfate 325 mg (65 mg iron) tablet Take 1 tablet by mouth once daily. 0 12/24/2015 08/08/2023 DiscontinuedComment on above:Take 1 tablet by mouth once daily.loperamide hydrochloride 2 mg oral capsule (20 sources)Opioid AgonistStart: 10-19-2023 End: 51-13-3001cyiu 1 capsule by mouth every six hours as neededLoperamide 2 mg capsule Discontinued 2 MG PO Every 6 hours as needed October 19, 2023 12:00am February 08, 2024 11:25am End: 71-59-6527fcgcjgddcv (Imodium A-D) 2 MG tablet Take 2-4 mg by mouth 4 (four) times a day as needed for diarrhea Activemupirocin 0.02 mg/mg topical ointment (9 sources)RNA Synthetase Inhibitor AntibacterialStart: 10-19-2023 End: 02-10-0088Tqvpglvje 2 % ointment Discontinued 1 APPLIC TOPICAL Twice daily 22 0 October 19, 2023 12:00am February 08, 2024 11:25amsimethicone 80 mg chewable tablet (1 source) End: 21-16-0417vhma 1 tablet by mouth every six hours as neededsimethicone, chewable (MYLICON) 80 mg chewable tablet Take 80 mg by mouth every 6 hours as needed. 07/04/2024 Discontinued Problems Active Problems Problem ClassificationProblemDateDocumented DateEpisodic/ChronicAbdominal pain (20 sources)Right upper quadrant pain; Translations: [Right upper quadrant pain] 55-55-5829BcrgzmgiSztvqbh disorders (20 sources)Mixed anxiety and depressive disorder; Translations: [Other specified anxiety disorders]ChronicCardiac dysrhythmias (20 sources)Postural orthostatic tachycardia syndrome ; Translations: [POTS (postural orthostatic tachycardia syndrome)]Onset: 112526-24-5730Ydafarc Deficiency and other anemia (20 sources)Microcytic anemia; Translations: [Iron deficiency anemia, unspecified]EpisodicDeficiency and other anemia (2 sources)Iron deficiency anemia, unspecifiedEpisodicDiabetes mellitus without complication (20 sources)Hyperglycemia; Translations: [Hyperglycemia, unspecified]Onset: 31-37-7550CidgeqbaRjtiktfa of white blood cells (15 sources)Neutropenia; Translations: [Neutropenia, unspecified]Chronic Disorders of lipid metabolism (20 sources)Hyperlipidemia; Translations: [Hyperlipidemia, unspecified]Onset: 23-59-5689HbfhqtiElbbbujpyd disorders (20 sources)Gastroesophageal reflux disease; Translations: [Gastro-esophageal reflux disease without esophagitis]51-27-6818TybrybdHqsxqyanu hypertension (20 sources)Hypertensive disorder; Translations: [Essential (primary) hypertension]Onset: 08-05-2021 Resolved: 51-28-4850ZqfskqeTavnltfnk hypertension (1 source)Essential hypertensionOnset: 25-49-1130Dlyhcponnirhu symptoms and ill- defined conditions (20 sources)Female stress incontinence; Translations: [Stress incontinence (female) (male)]Onset: 837706-86-4680SzrkyfuXacwkui and fatigue (1 source)Other fatigueEpisodicMenstrual disorders (1 source)Excessive and frequent menstruation with regular cycle; Translations: [Heavy menses]Onset: 84-72-9801JhaapplBdoswefjdlp chest pain (9 sources)Chest pain, unspecified; Translations: [Other chest pain]Onset: 89-30-5570QbndehzoJbtwumbdpsd deficiencies (20 sources)Vitamin D deficiency; Translations: [Vitamin D deficiency, unspecified]Onset: 06-23-7710JzswiutNjnz wounds of extremities (10 sources)Laceration of left index finger; Translations: [Laceration without foreign body of left index finger without damage to nail, initial encounter] EpisodicOther circulatory disease (5 sources)Elevated blood pressure; Translations: [Elevated blood-pressure reading, without diagnosis of hypertension]12-83-8626QgnjkyqjXsiiy circulatory disease (1 source)Elevated blood-pressure reading, without diagnosis of hypertension; Translations: [Elevated blood pressure reading]Onset: 89-31-8857MvvxhqexRjuel ear and sense organ disorders (20 sources)Bilateral earache; Translations: [Otalgia, bilateral]EpisodicOther gastrointestinal disorders (6 sources)Irritable bowel syndrome characterized by constipation; Translations: [Irritable bowel syndrome with constipation]11-24-3755WlsxucqUvrvm gastrointestinal disorders (2 sources)Irritable bowel syndrome with constipation; Translations: [Irritable bowel syndrome]39-68-0571LgssewyHwdsg gastrointestinal disorders (14 sources)Difficulty swallowing; Translations: [Dysphagia, unspecified] EpisodicOther gastrointestinal disorders (9 sources)Diarrhea; Translations: [Diarrhea, unspecified]84-50-0745Dxeaafmu Other gastrointestinal disorders (3 sources)Diarrhea, unspecified; Translations: [Diarrhea]53-34-1345Wmgvoqmq Other gastrointestinal disorders (7 sources)Abdominal bloating; Translations: [Abdominal distension (gaseous)] 57-86-9115OeejqlrgLybmh gastrointestinal disorders (6 sources)Dysphagia; Translations: [Dysphagia, unspecified]10-65-0000Macisunm Other gastrointestinal disorders (2 sources)Dysphagia, unspecified; Translations: [Dysphagia, unspecified] 25-52-0725EebjelfqEjhcp lower respiratory disease (3 sources)Shortness of breath; Translations: [Shortness of breath]Onset: 17-15-4817QvdvhvihVidaq lower respiratory disease (2 sources)Snoring; Translations: [Snoring]Onset: 23-62-7400MrrlnzepSsewq lower respiratory disease (6 sources)Dyspnea; Translations: [Shortness of breath]42-68-3474SiepdsxcCunlq lower respiratory disease (5 sources)Multiple nodules of lung; Translations: [Other nonspecific abnormal finding of lung field]77-61-2916OoktdmjlOzdft lower respiratory disease (1 source)Nodule of lung; Translations: [Solitary pulmonary nodule]08-16-2024 EpisodicOther lower respiratory disease (1 source)Dyspnea on exertion; Translations: [Shortness of breath]08-16-2024 EpisodicOther nervous system disorders (20 sources)Disorder of autonomic nervous system; Translations: [Disorder of the autonomic nervous system, unspecified]Onset: 427178-14-9599WrlbtrgVrxeo nervous system disorders (1 source)Disorder of the autonomic nervous system, unspecifiedChronicOther nervous system disorders (20 sources)Tremor; Translations: [Tremor, unspecified]92-31-3466EhkhevjxSjqvy nervous system disorders (10 sources)Numbness of face; Translations: [Anesthesia of skin]EpisodicOther nutritional; endocrine; and metabolic disorders (20 sources)H/O: thyroid disorder; Translations: [Personal history of other endocrine, nutritional and metabolic disease]30-76-8182JulehxbfLuppw nutritional; endocrine; and metabolic disorders (1 source)Personal history of other endocrine, nutritional and metabolic disease EpisodicOther nutritional; endocrine; and metabolic disorders (1 source)Abnormal weight gainEpisodicOther screening for suspected conditions (not mental disorders or infectious disease) (12 sources)Endometrium thickened; Translations: [Abnormal findings on diagnostic imaging of other specified body structures]Onset: 03-06-2025 80-92-6795OrszellNqjwt skin disorders (9 sources)Pyogenic granuloma; Translations: [Pyogenic granuloma]10-19-2023 EpisodicOther skin disorders (3 sources)Pyogenic granuloma; Translations: [Pyogenic granuloma of skin and subcutaneous tissue]87-74-3839VythydxyMxonm upper respiratory infections (4 sources)Sinusitis; Translations: [Chronic sinusitis, unspecified]04-04-2024 ChronicPeripheral and visceral atherosclerosis (20 sources)Peripheral vascular disease; Translations: [Peripheral vascular disease, unspecified]ChronicPulmonary heart disease (20 sources)Pulmonary hypertension; Translations: [Pulmonary hypertension, unspecified]Onset: 426895-75-9155QmhmqezOkrbtzln codes; unclassified (2 sources)Sleep apnea, unspecified; Translations: [Sleep apnea, unspecified] Onset: 21-17-9459LrukrxeUlsgjovc codes; unclassified (20 sources)Amnesia; Translations: [Other amnesia]EpisodicThyroid disorders (20 sources)Multinodular goiter; Translations: [Nontoxic multinodular goiter] Onset: 906518-65-9583EhkbrxaPijidxgftvph (2 sources)Chest pain, unspecified / R07.9(ICD-9)Onset: 82-49-1246Zuupyzpnxjtl (1 source)Palpitations / R00.2(ICD-9)Onset: 23-06-5631Ydkybowovwog (1 source)Family hx of ischem heart dis and oth dis of the circ sys / Z82.49(ICD-9)Onset: 69-74-6203Byigqcxiqfsa (1 source)Cardiac arrhythmia, unspecified / I49.9(ICD-9)Onset: 31-07-4539Blfabez tract infections (20 sources)Recurrent urinary tract infection; Translations: [Urinary tract infection, site not specified]Onset: 04-22-2021 Resolved: 06-23-8726Xkgcepiz Past or Other Problems Problem ClassificationProblemDateDocumented DateEpisodic/ChronicBenign neoplasm of uterus (20 sources)Uterine leiomyoma; Translations: [Leiomyoma of uterus, unspecified] Onset: 713284-51-3280YstpaggqRbprlpv dysrhythmias (20 sources)Palpitations; Translations: [Bradycardia]Onset: 04-22-2021 Resolved: 58-60-3703UjwjsqfmBbria and electrolyte disorders (1 source)Hyperkalemia; Translations: [Hyperkalemia]Onset: 08-00-9128Fafwhfyh Genitourinary symptoms and ill-defined conditions (20 sources)Increased frequency of urination; Translations: [Frequency of micturition]Onset: 49-59-4830JhebnzntLkkgwfwwhdqd breast conditions (2 sources)Pain of breast; Translations: [Mastodynia]07-78-6590PxzaakcqTamhx circulatory disease (3 sources)Postural orthostatic tachycardia syndrome ; Translations: [Postural orthostatic tachycardia syndrome (POTS)]Onset: 69-41-6927QtwzsodmQjntn connective tissue disease (4 sources)Pain in left lower leg; Translations: [PAIN IN LEFT LOWER LEG]Onset: 29-29-3454NlldahncUokfd ear and sense organ disorders (1 source)Otalgia, bilateralOnset: 04-22-2021 Resolved: 69-97-0662EikhkdozKtezz ear and sense organ disorders (20 sources)Otalgia, left ear; Translations: [Otalgia, unspecified]Onset: 747752-99-9610LpjusehjPvtfc female genital disorders (20 sources)Polyp of corpus uteri; Translations: [Polyp of corpus uteri]Onset: 133048-17-0123KbptmwiyBjrjv female genital disorders (2 sources)Vaginal dryness; Translations: [Other specified noninflammatory disorders of vagina]70-31-3705CmmnrdlbBtkqt lower respiratory disease (2 sources)Solitary pulmonary nodule; Translations: [Lung nodule]Onset: 85-36-6926UawrufrvRtliy lower respiratory disease (1 source)Other nonspecific abnormal finding of lung field; Translations: [Lung nodules]Onset: 64-30-7693BvrrmbwwNhgfd nervous system disorders (1 source)Tremor, unspecified; Translations: [Tremor]Onset: 63-86-1335Dykjwgxj Other non-traumatic joint disorders (1 source)Pain in right kneeOnset: 04-22-2021 Resolved: 45-23-8892EqloiwyaNxuwh screening for suspected conditions (not mental disorders or infectious disease) (20 sources)Atypical glandular cells on cervical Papanicolaou smear; Translations: [Unspecified abnormal cytological findings in specimens from cervix uteri]Onset: 298443-33-9372BnzmowyfQxsyb upper respiratory disease (1 source)Nasal congestionOnset: 05-20-2021 Resolved: 07-26-1727KbblwshtHxghwrcmhqcw (1 source)Vaccine counseling Z71.85Onset: 04-22-2021 Resolved: 54-92-5302Vihtaehplsgr (14 sources)Varicose veins of lower extremity (4 sources)Varicose veins of bilateral lower extremities with pain; Translations: [VARICOSE VNS ROJELIO LOW EXTREMW/PAIN]Onset: 82-34-5249Knjobsgf Results Test NameValueInterpretationReference QtjpiKrfpbaimL6L with Estimated Average Gluon 70-12-8968Hxwlqyx [Mass/Vol]108 mg/dLNormalThe [facility] Comment on above:Result Comment: PERFORMED BY: [place] [id number] PATHOLOGIST GUIDE SETTER TANIA BANDA M.D.Performed By: #### CMP, LIPID, A1C WTH eA, TSH3, [id number], CBC #### [facility] [address] [place] [address] NJYFpG0r (Bld) [Mass fraction]5.4 %Normal4.3-5.6The [facility] Physician GroupComment on above:Result Comment: Increased risk for diabetes: 5.7 - 6.4 diabetes: >6.4 glycemic control for adults with diabetes: <7.0Performed By: #### CMP, LIPID, A1C WTH eA, TSH3, [id number], CBC #### [facility] [address] [place] [address] USAAlanine aminotransferase [Enzymatic activity/volume] in Serum or PlasmaOrdered By: Gautam Dill on 25-05-4509ZEP [Catalytic activity/Vol] 18 U/LNormal7-52[facility] CenterComment on above:Performed By: #### CMP, LIPID, A1C WTH eA, TSH3, [id number], CBC #### [facility] [address] [place] [address] USAAlbumin [Mass/volume] in Serum or Plasma by Bromocresol green (BCG) dye binding methoOrdered By: Gautam Dill on 87-95-8481Nsautmk BCG dye [Mass/Vol]4.4 g/dL3.5-5.7FKettering Health – Soin Medical CenterAlkaline phosphatase [Enzymatic activity/volume] in Serum or PlasmaOrdered By: Gautam Dill on 62-24-5623EEQ [Catalytic activity/Vol]94 U/HJboqqd38-231KgbyckepkUniversity Hospitals Samaritan Medical CenterComment on above:Performed By: #### CMP, LIPID, A1C WTH eA, TSH3, [id number], CBC #### [facility] [address] [place] [address] USAAspartate aminotransferase [Enzymatic activity/volume] in Serum or PlasmaOrdered By: Gautam Dill on 35-09-7880RMR [Catalytic activity/Vol] 18 U/VJvgphb81-84MtdxexlmrUniversity Hospitals Samaritan Medical CenterComment on above:Performed By: #### CMP, LIPID, A1C WTH eA, TSH3, [id number], CBC #### [facility] [address] [place] [address] USABasophils [#/volume] in Blood by Automated countOrdered By: Gautam Dill on 41-24-6678Rxsyqpcxu (Bld) [#/Vol]0.0 10*3/uLNormal0.0-0.2 [facility] CenterComment on above:Result Comment: PERFORMED BY: [place] [id number] PATHOLOGIST GUIDE SETTER TANIA BANDA M.D.Performed By: #### CMP, LIPID, A1C WTH eA, TSH3, [id number], CBC #### [facility] [address] [place] [id number] USABasophils/100 leukocytes in Blood by Automated count Ordered By: Gautameduarda Dill on 35-01-3419Thwwrqavb/100 WBC (Bld)0.7 %Normal.[facility] Medical CenterComment on above:Performed By: #### CMP, LIPID, A1C WTH eA, TSH3, [id number], CBC #### [facility] [address] [place] [id number] USABilirubin.total [Mass/volume] in Serum or PlasmaOrdered By: Gautam Dill on 87-09-9762Oebkaeyxm [Mass/Vol]0.5 mg/dLNormal0.3-1.0[facility] CenterComment on above:Performed By: #### CMP, LIPID, A1C WTH eA, TSH3, [id number], CBC #### [facility] [address] [place] [address] USACalcium [Mass/volume] in Serum or PlasmaOrdered By: Gautam Dill on 26-32-1193Hmfcszo [Mass/Vol]9.0 mg/dLNormal8.6-10.3FKettering Health – Soin Medical CenterComment on above:Performed By: #### CMP, LIPID, A1C WTH eA, TSH3, [id number], CBC #### [facility] [address] [place] [address] USACarbon dioxide, total [Moles/volume] in Serum or Plasma Ordered By: Gautam Dill on 33-65-5637JY2 [Moles/Vol]27.2 mmol/DKvefuh18.0-31.0 [facility] CenterComment on above:Performed By: #### CMP, LIPID, A1C WTH eA, TSH3, [id number], CBC #### [facility] [address] [place] [id number] USAChloride [Moles/volume] in Serum or PlasmaOrdered By: Gautam Dill on 47-43-7317Mbmuxhjv [Moles/Vol]107 mmol/ZHurdym82-220Aatwijlut Regional Medical CenterComment on above:Performed By: #### CMP, LIPID, A1C WTH eA, TSH3, [id number], CBC #### [facility] [address] [place] [address] USACholesterol [Mass/volume] in Serum or PlasmaOrdered By: Guatam Dill on 59-57-3303Bxiluhmrwkc [Mass/Vol]229 mg/aCIdle828-736RolmnothdUniversity Hospitals Samaritan Medical CenterComment on above:Chol less than 200 mg/dl low riskChol 201-239 mg/dl borderline riskChol 240 mg/dl and greater high riskResult Comment: Chol less than 200 mg/dl low risk Chol 201-239 mg/dl borderline risk Chol 240 mg/dl and greater high riskPerformed By: #### CMP, LIPID, A1C WTH eA, TSH3, [id number], CBC #### [facility] [address] [place] [address] USACholesterol in HDL [Mass/volume] in Serum or PlasmaOrdered By: Gautam Dill on 65-26-2453Smcyuplclos in HDL [Mass/Vol]83 mg/rJTvyoha76-85 [facility] CenterComment on above:HDL CHOL ATP-III CLASSIFICATION Cardiovascular RiskHDL > or equal to 60 mg/dL LOWHDL < 40 mg/dL HIGHResult Comment: HDL CHOL ATP-III CLASSIFICATION Cardiovascular Risk HDL > or equal to 60 mg/dL LOW HDL < 40 mg/dL HIGHPerformed By: #### CMP, LIPID, A1C WTH eA, TSH3, [id number], CBC #### [facility] [address] [place] [address] USACholesterol in LDL Calc [Mass/Vol]Ordered By: Gautam Dill on 98-49-8984Lejxndsogan in LDL [Mass/Vol]128 mg/dLHigh0-100[facility] CenterComment on above:LDL ATP III CLASSIFICATIONLDL less than 100 mg/dL OptimalLDL 100-129 mg/dL Near or above djoejeaOXS752-669 mg/dL Borderline highLDL 160-189 mg/dL HighLDL greater than 189 mg/dL Very highCholesterol in VLDL Calc [Mass/Vol]Ordered By: Gautam Dill on 20-68-2661Zjiksxfjlyc in VLDL [Mass/Vol]18 mg/dLUniversity Hospitals Samaritan Medical CenterComplete Blood Count Auto Diffon 05-32-4496Ejtm Corpuscular HGB Conc33.7 g/xTEymxmb71.0-35.0The [facility] Physician GroupComment on above:Performed By: #### CMP, LIPID, A1C WTH eA, TSH3, [id number], CBC #### [facility] [address] [place] [address] USANRBC%0.2 /100{WBC}Normal0-0.5[facility] Comment on above:Performed By: #### CMP, LIPID, A1C WTH eA, TSH3, [id number], CBC #### [facility] [address] [place] [address] USAWhite Blood Count4.9 [CFU]/mLNormal3.8-11.6The [facility] Physician GroupComment on above:Performed By: #### CMP, LIPID, A1C WTH eA, TSH3, [id number], CBC #### [facility] [address] [place] [address] USAComprehensive Metabolic Panelon 10-72-0988Nlefpgr [Mass/Vol]4.4 g/dLNormal3.5-5.7The [facility] HospitalComment on above: Performed By: #### CMP, LIPID, A1C WTH eA, TSH3, [id number], CBC #### [facility] [address] [place] [address] USAGFR/1.73 sq M.predicted MDRD (S/P/Bld) [Vol rate/Area] mL/min/{1.73_m2}NormalThe Atrium Health Physician GroupComment on above:Performed By: #### CMP, LIPID, A1C WTH eA, TSH3, [id number], CBC #### [place] [address] USACreatinine [Mass/volume] in Serum or PlasmaOrdered By: Gautam Dill on 12-01-2230Tozfibswet [Mass/Vol]0.81 mg/dLNormal0.60-1.20[facility] CenterComment on above:Performed By: #### CMP, LIPID, A1C WTH eA, TSH3, [id number], CBC #### [facility] [address] [place] [id number] USAEosinophils [#/volume] in Blood by Automated countOrdered By: Gautam Dill on 95-96-6346Tvounpftvwa (Bld) [#/Vol]0.5 10*3/uLHigh0.0-0.45 [facility] CenterComment on above:Performed By: #### CMP, LIPID, A1C WTH eA, TSH3, [id number], CBC #### [facility] [address] [place] [id number] USAEosinophils/100 leukocytes in Blood by Automated count Ordered By: Gautam Dill on 93-38-5196Nkgkbhecfgf/100 WBC (Bld)11.1 %Normal. [facility] Medical CenterComment on above:Performed By: #### CMP, LIPID, A1C WTH eA, TSH3, [id number], CBC #### [facility] [address] [place] [id number] USAErythrocyte distribution width [Ratio] by Automated count Ordered By: Gautam Dill on 08-28-7478Ttydijakbue distribution width (RBC) [Ratio] 14.4 %Fyuauu91.9-15.3FKettering Health – Soin Medical CenterComment on above:Performed By: #### CMP, LIPID, A1C WTH eA, TSH3, [id number], CBC #### [facility] [address] [place] [id number] USAErythrocytes [#/volume] in Blood by Automated countOrdered By: Gautam Dill on 65-79-9950UVP (Bld) [#/Vol]4.96 10*6/uLNormal3.60-5.00 [facility] CenterComment on above:Performed By: #### CMP, LIPID, A1C WTH eA, TSH3, [id number], CBC #### [facility] [address] [place] [id number] USAGlomerular filtration rate [Volume Rate/Area] in Serum, Plasma or Blood by CreatinineOrdered By: Gautam Dill on 05-54-8025Fkbpyumlfa filtration rate [Volume Rate/Area] in Serum, Plasma or Blood by Creatinine> 60.0 mL/MinUniversity Hospitals Samaritan Medical CenterGlucose [Mass/volume] in Serum or Plasma Ordered By: Gautam Dill on 90-90-6035Lyytlkd [Mass/Vol]97 mg/iKOmlfmd53-494 [facility] CenterComment on above:ADA recommended reference rangeRandom Glucose Reference Range is dependent on time and content of last meal. Glucose of more than 200 mg/dL in a nonstressed, ambulatory subject supports the diagnosisof Diabetes Mellitus.Result Comment: Random Glucose Reference Range is dependent on time and content of last meal. Glucose of more than 200 mg/dL in a nonstressed, ambulatory subject supports the diagnosis of Diabetes Mellitus. ADA recommended reference rangePerformed By: #### CMP, LIPID, A1C WTH eA, TSH3, [id number], CBC #### [facility] [address] [place] [address] USAHematocrit [Volume Fraction] of Blood by Automated count Ordered By: Gautam Dill on 61-51-6374Qqfpajekdw (Bld) [Volume fraction]44.6 % Bosyms91.0-46.4FKettering Health – Soin Medical CenterComment on above:Performed By: #### CMP, LIPID, A1C WTH eA, TSH3, [id number], CBC #### [facility] [address] [place] [address] USAHemoglobin [Mass/volume] in BloodOrdered By: Gautam Dill on 74-96-6406Jhugsdvyvb (Bld) [Mass/Vol]15.0 g/pXCabamj25.8-15.4FKettering Health – Soin Medical CenterComment on above:Performed By: #### CMP, LIPID, A1C WTH eA, TSH3, [id number], CBC #### [facility] [address] [place] [address] USALeukocytes [#/volume] corrected for nucleated erythrocytes in Blood by Automated counOrdered By: Gautam Dill on 25-83-6444WWR corrected for nucl RBC Auto (Bld) [#/Vol]4.9 10*3/uL3.8-11.6FKettering [facility] Center Leukocytes [#/volume] in Blood by Automated countOrdered By: Gautam Dill on 16-11-3162ODT (Bld) [#/Vol]4.9 10*3/uLNormal3.8-11.6FKettering Health – Soin Medical CenterComment on above:Performed By: #### CMP, LIPID, A1C WTH eA, TSH3, [id number], CBC #### [facility] [address] [place] [address] USALipid Panelon 07-46-7421REV Cholesterol,Hbmwldumcu605 mg/dLHigh0-100The [facility] HospitalComment on above:Result Comment: LDL ATP III CLASSIFICATION LDL less than 100 mg/dL Optimal LDL 100-129 mg/dL Near or above optimal LDL 130-159 mg/dL Borderline high LDL 160-189 mg/dL High LDL greater than 189 mg/dL Very highPerformed By: #### CMP, LIPID, A1C WTH eA, TSH3, [id number], CBC #### [facility] [address] [place] [address] USATriglyceride w/Skcncv43 mg/dLNormal0-149[facility] HospitalComment on above:Result Comment: TRIG ATP III CLASSIFICATION TRIG less than 150 mg/dL Normal TRIG 150-199 mg/dL Borderline high TRIG 200-500 mg/dL High TRIG greater than 500 mg/dL Very high Standard traceable to the Center for Disease Conrtrol and Prevention (CDC) test method.Performed By: #### CMP, LIPID, A1C WTH eA, TSH3, [id number], CBC #### [facility] [address] [place] [address] USAVLDL SRAJRTRMNFG32 mg/dLNormalThe [facility] Physician [facility] HospitalComment on above:Performed By: #### CMP, LIPID, A1C WTH eA, TSH3, [id number], CBC #### [facility] [address] [place] [address] USALymphocytes [#/volume] in Blood by Automated countOrdered By: Gautam Dill on 48-82-5923Ehggxuweowd (Bld) [#/Vol]1.5 10*3/uLNormal1.00-4.8 [facility] CenterComment on above:Performed By: #### CMP, LIPID, A1C WTH eA, TSH3, [id number], CBC #### [facility] [address] [place] [id number] USALymphocytes/100 leukocytes in Blood by Automated count Ordered By: Gautam Dill on 86-65-7792Btovxezmxhz/100 WBC (Bld)29.6 %Normal. [facility] CenterComment on above:Performed By: #### CMP, LIPID, A1C WTH eA, TSH3, [id number], CBC #### [facility] [address] [Entitic mass] by Automated countOrdered By: Gautam Dill on 90-11-1640PQU (RBC) [Entitic mass]30.3 ecLrxrqy68.7-34.3FKettering Health – Soin Medical CenterComment on above:Performed By: #### CMP, LIPID, A1C WTH eA, TSH3, [id number], CBC #### [facility] [address] [place] [id number] [facility] Auto (RBC) [Mass/Vol]Ordered By: Gautam Dill on 38-57-4103GWTF (RBC) [Mass/Vol]33.7 g/dL32.0-35.0[facility] Medical CenterMCV [Entitic volume] by Automated countOrdered By: Gautam Dill on 05-55-9636AOU (RBC) [Entitic vol]90.0 jXBuvrgb61-466EootelirhUniversity Hospitals Samaritan Medical CenterComment on above:Performed By: #### CMP, LIPID, A1C WTH eA, TSH3, [id number], CBC #### [facility] [address] [place] [id number] USAMonocytes [#/volume] in Blood by Automated countOrdered By: Gautam Dill on 92-17-9803Dhiqvmwsg (Bld) [#/Vol]0.3 10*3/uLNormal0.0-0.8 [facility] CenterComment on above:Performed By: #### CMP, LIPID, A1C WTH eA, TSH3, [id number], CBC #### [facility] [address] [place] [address] USAMonocytes/100 leukocytes in Blood by Automated count Ordered By: Gautam Dill on 14-78-4338Wlkadgnum/100 WBC (Bld)6.7 %Normal.[facility] Medical CenterComment on above:Performed By: #### CMP, LIPID, A1C WTH eA, TSH3, [id number], CBC #### [facility] [address] [place] [address] USANeutrophils [#/volume] in Blood by Automated countOrdered By: Gautam Dill on 17-74-8252Jkzpfxvwotz (Bld) [#/Vol]2.6 10*3/uLNormal1.8-7.7 [facility] CenterComment on above:Performed By: #### CMP, LIPID, A1C WTH eA, TSH3, [id number], CBC #### [facility] [address] [place] [address] USANeutrophils/100 leukocytes in Blood by Automated count Ordered By: Gautam Dill on 58-71-1720Dfcinfokjep/100 WBC (Bld)51.9 %Normal. [facility] CenterComment on above:Performed By: #### CMP, LIPID, A1C WTH eA, TSH3, [id number], CBC #### [facility] [address] [place] [id number] USANo Panel InformationOrdered By: Gautam Dill on 03-04-2025 Pharmacy Creatinine Clearance (ChemN/AFKettering Health – Soin Medical CenterNucleated erythrocytes [Presence] in Blood by Automated countOrdered By: Gautam Dill on 30-19-4911Dijrciglf RBC Auto Ql (Bld)0.2 /100{WBC}0-0.5FKettering Health – Soin Medical CenterPlatelet mean volume [Entitic volume] in Blood by Automated count Ordered By: Gautam Dill on 24-12-2224Rptvpwgx mean volume (Bld) [Entitic vol]9.2 fLNormal6.3-10.7FKettering Health – Soin Medical CenterComment on above:Performed By: #### CMP, LIPID, A1C WTH eA, TSH3, [id number], CBC #### [facility] [address] [place] [id number] USAPlatelets [#/volume] in Blood by Automated countOrdered By: Gautam Dill on 28-89-6025Tbqfzdcjd (Bld) [#/Vol]192 10*3/tCVrocmv350-427 [facility] CenterComment on above:Performed By: #### CMP, LIPID, A1C WTH eA, TSH3, [id number], CBC #### [facility] [address] [place] [id number] USAPotassium [Moles/volume] in Serum or PlasmaOrdered By: Gautam Dill on 44-57-0234Tctawrawb [Moles/Vol]4.2 mmol/LNormal3.5-5.1FKettering Health – Soin Medical CenterComment on above:Performed By: #### CMP, LIPID, A1C WTH eA, TSH3, [id number], CBC #### [facility] [address] [place] [id number] USAProtein [Mass/volume] in Serum or PlasmaOrdered By: Gautam Dill on 26-18-4358Xvhmiee [Mass/Vol]7.1 g/dLNormal6.4-8.9[facility]aritan Medical CenterComment on above:Performed By: #### CMP, LIPID, A1C WTH eA, TSH3, [id number], CBC #### [facility] [address] [id number] USASerum globulin measurement by calculation (mass/volume) Ordered By: Gautam Dill on 73-11-2902Kbzvjico (S) [Mass/Vol]2.7 g/dLNormal [facility] CenterComment on above:Performed By: #### CMP, LIPID, A1C WTH eA, TSH3, [id number], CBC #### [facility] [address] [id number] USASerum or plasma albumin/globulin mass ratioOrdered By: Gautam Dill on 49-41-5798Rntrvlj/Globulin [Mass ratio]1.6 {ratio}NormalUniversity Hospitals Samaritan Medical CenterComment on above:Performed By: #### CMP, LIPID, A1C WTH eA, TSH3, [id number], CBC #### [facility] [address] [place] [address] USASerum or plasma anion gap determinationOrdered By: Gautam Dill on 49-30-5418Nuful gap [Moles/Vol]10.0 mmol/LNormal6.0-15.0[facility] Medical CenterComment on above:Performed By: #### CMP, LIPID, A1C WTH eA, TSH3, [id number], CBC #### [facility] [address] [place] [address] USASerum or plasma total cholesterol/high density lipoprotein (HDL) cholesterol mass ratOrdered By: Gautam Dill on 03-04-2025 Cholesterol.total/Cholesterol in HDL [Mass ratio]2.8 {ratio}Normal<5.0[facility] Medical CenterComment on above:Performed By: #### CMP, LIPID, A1C WTH eA, TSH3, [id number], CBC #### [facility] [address] [place] [address] USASodium [Moles/volume] in Serum or PlasmaOrdered By: Gautam Dill on 55-84-7767Xgiomk [Moles/Vol]140 mmol/CCianof342-120VzkunuveuUniversity Hospitals Samaritan Medical CenterComment on above:Performed By: #### CMP, LIPID, A1C WTH eA, TSH3, [id number], CBC #### [facility] [address] [place] [address] USAThyrotropin [Units/volume] in Serum or PlasmaOrdered By: Gautam Dill on 89-38-4540FXA Qn1.59 m[IU]/LNormal0.45-5.33[facility] Samaritan Medical CenterComment on above:Performed By: #### CMP, LIPID, A1C WTH eA, TSH3, [id number], CBC #### [facility] [address] [place] [address] USATriglyceride [Mass/volume] in Serum or PlasmaOrdered By: Gautam Dill on 68-01-1518Fwycknjliqbj [Mass/Vol]92 mg/dL0-149[facility] Medical CenterComment on above:TRIG ATP III CLASSIFICATIONTRIG less than 150 mg/dL NormalTRIG 150-199 mg/dL Borderline highTRIG 200-500 mg/dL High TRIG greater than 500 mg/dL Very highStandard traceable to the Center for Disease Co nrtrol and Prevention (CDC) test method.Urea nitrogen [Mass/volume] in Serum or PlasmaOrdered By: Gautam Dill on 83-67-2924Iooc nitrogen [Mass/Vol]15 mg/dLNormal 7-25[facility] Medical CenterComment on above:Performed By: #### CMP, LIPID, A1C WTH eA, TSH3, [id number], CBC #### [facility] [address] [place] [address] USAVitamin D 25 Hydroxy Totalon 38-57-2334Kklotie D 25 Hydroxy Total25.8 ng/dPYrp55-557Vuc [facility]rium Health Physician GroupComment on above: Result Comment: VITAMIN D STATUS 25(OH)VITAMIN D RANGE (ng/mL) Deficient <20 Insufficient 20 to <30 Sufficient 30 to 100 Reference: Mason Perez, Susan SPANGLER, et al. Evaluation,treatment, and prevention of vitamin D deficiency; an Endocrine Society clinical practice guideline. JCEM. 2010; 96(7):1911-30. PERFORMED BY: [place] [id number] PATHOLOGIST GUIDE SETTER TANIA BANDA M.D.Performed By: #### CMP, LIPID, A1C WTH eA, TSH3, [id number], CBC #### [facility] [address] [place] [address] USAVitamin D+Metabolites [Mass/volume] in Serum or Plasma Ordered By: Gautam Dill on 40-21-7661Udlknrr D+Metabolites [Mass/Vol]25.8 ng/mL Riu07-760RvyxdebwxUniversity Hospitals Samaritan Medical CenterComment on above:VITAMIN D STATUS 25(OH)VITAMIN D RANGE (ng/mL) Deficient <20 Insufficient 20 to <21Eglrqkyibt63 to 100Reference: Mason Perez, Susan SPANGLER, et al. Evaluation,treatment, and prevention of vitamin D deficiency; an Endocrine Society clinical practice guideline. JCEM. 2010; 96(7):1911-30.Nam 20-57-0589DOKWVplvcnxxm (CATHMN) IRIS THOMASON ([id number]) 1965 F Date Time Provider Department 01/22/25 QUINCY QUAN During your visit today, we recorded the following information about you: Steve Valle 01/22/2025 1:17 PM Signed Pt called to find out about her results from the holter monitor. She read the report on [employer], but would like to have it in layman's terms. Pt can be reached at [phone]. Layne Watts 01/25/2025 3:[address] Quan reviewed Refer to EP for outpatient consultation Called patient and let her know, transferred call to scheduling Allergies As of Date: 01/22/2025 Noted Allergy Reaction CONTRAST DYE 01/21/2014 14 - Other: See Comments 16 - Unknown AZITHROMYCIN 10/07/2014 8 - GI Upset Comments: [...] Spasm Other Reaction(s): eye brown pain, spasms DIVALPROEX 03/05/2024 16 - Unknown FLAGYL (METRONIDAZOLE HCL) 10/21/2014 6 - Diarrhea Comments: Had diarrhea and dizziness and funny feeling in head and arms FORMOTEROL 07/12/2022 14 - Other: See Comments Comments: Other Reaction(s): blood pressure LATEX 07/04/2024 14 - Other: See Comments LEVOFLOXACIN 07/12/2022 6 - Diarrhea 14 - Other: See Comments Comments: Other Reaction(s): Unknown LORAZEPAM 04/27/2024 14 - Other: See Comments METHYLPREDNISOLONE 07/12/2022 8 - GI Upset 14 [...] Itching Comments: Other Reaction(s): itching Date Reviewed: 12/26/2024 Reviewed by: Patience Pitts RN - Fully Assessed Reason for Visit: Results [95] Primary Visit Diagnosis:SVT (supraventricular tachycardia) ([facility]) [I47.10] Order(s):CONSULT TO ELECTROPHYSIOLOGY [6696674] Order #: [id number]: 1 FUTURE Prescriptions as of 01/25/2025 - lansoprazole (PREVACID PO) Take 1 tablet by mouth once daily as needed (prn). - MAGNESIUM GLYCINATE ORAL Take 240 mg by mouth once daily. High absorption - mv-min/iron/folic/calcium/vitK (WOMEN'S MULTIVITAMIN ORAL) Take 1 tablet by mouth once daily. - acetaminophen (TYLENOL 8 HOUR ORAL) Take by mouth as needed. - gabapentin (NEURONTIN) 100 mg capsule Take 1 capsule by mouth once daily. - nebivolol (BYSTOLIC) 5 mg tablet Take 2.5 mg by mouth once daily. Problem List As Of Date 01/22/2025 Noted Resolved Female stress incontinence [N39.3] 11/25/2014 Multiple thyroid nodules [E04.2] 12/24/2015 Endometrial polyp [N84.0] 06/13/2017 Intramural and submucous leiomyoma of uterus [D*08/01/2017 Submucous leiomyoma of uterus [D25.0] 08/01/2017 Left ear pain [H92.02] 02/07/2018 Autonomic dysfunction [G90.9] 04/17/2018 POTS (postural orthostatic tachycardia syndrome*04/17/2018 Atypical glandular cells of undetermined signif*05/30/2018 Encounter Status:Closed by LAYNE WATTS on 01/25/25NoalCMercy Health Urbana HospitalUrinalysis macro (dipstick) panel (U)on 71-97-5346Couaarize, UANegative Negative - 4(70) +++ mg/dLNOMS HealthcareBlood, UANegativeNegative - 50 Miguel/mcL NOMS HealthcareClarity, UAClearNOMS HealthcareColor, UAYellowNOMS Healthcare Glucose, UANegativeNegative - 2000(110) ++++ mg/dLNOMS HealthcareKetones, UA NegativeNegative - 160(16) ++++ mg/dLNOMS HealthcareLeukocytes, UATraceNegative - 500+++ Krista/mcLNOMS HealthcareNitrite, UANegativeNegative - PositiveNOMS HealthcarepH, UA55 - 9NOMS HealthcareProtein, UANegativeNegative - 2000(20) ++++ mg/dLNOMS HealthcareSpec Grav, UA1.031 - 1.03NOMS HealthcareUrobilinogen, UA0.2 0.2 - 12 mg/dLNOMS HealthcareNOMS HealthcareCNOVon 59-71-1637AMSPHueviy Visit (CARDMN) IRIS THOMASON ([id number]) 1965 F Date Time Provider Department 12/26/24 3:00 PM ARRHYTHMIA MONITORING LAB CARDMN During your visit today, we recorded the following information about you: Shawna Sanchez TECHNOLOGIST 12/26/2024 4:35 PM Signed MCT/EVENT MONITOR DISPOSABLE PATCH INSTRUCTIONS Patient Name: Iris Saucedo Number: [id number] Skin prepped and cleansed with alcohol. Patch secured to prepped area. Monitor Activated. [place] Activated. Serial #: [id number] Patient Instructed: Prescribed order timeframe Bathing guidelines Usage of event button and diary documentation Return of monitor at the end of prescribed order Call with problems Patient expresses a good understanding of instructions Shawna Sanchez TECHNOLOGIST Referring Provider: QUINCY QUAN [[id number]] Allergies As of Date: 12/26/2024 Noted Allergy Reaction CONTRAST DYE 01/21/2014 14 - Other: See Comments 16 - Unknown AZITHROMYCIN 10/07/2014 8 - GI Upset Comments: [...] Spasm Other Reaction(s): eye brown pain, spasms DIVALPROEX 03/05/2024 16 - Unknown FLAGYL (METRONIDAZOLE HCL) 10/21/2014 6 - Diarrhea Comments: Had diarrhea and dizziness and funny feeling in head and arms FORMOTEROL 07/12/2022 14 - Other: See Comments Comments: Other Reaction(s): blood pressure LATEX 07/04/2024 14 - Other: See Comments LEVOFLOXACIN 07/12/2022 6 - Diarrhea 14 - Other: See Comments Comments: Other Reaction(s): Unknown LORAZEPAM 04/27/2024 14 - Other: See Comments METHYLPREDNISOLONE 07/12/2022 8 - GI Upset 14 [...] Itching Comments: Other Reaction(s): itching Date Reviewed: 12/26/2024 Reviewed by: Patience Pitts, RN - Fully Assessed Reason for Visit: Event [921] Cmt: Zio AT Primary Visit Diagnosis:Palpitations [R00.2] Other Visit Diagnosis:SOB (shortness of breath) [R06.02] Prescriptions as of 12/26/2024 - lansoprazole (PREVACID PO) Take 1 tablet by mouth once daily as needed (prn). - MAGNESIUM GLYCINATE ORAL Take 240 mg by mouth once daily. High absorption - mv-min/iron/folic/calcium/vitK (WOMEN'S MULTIVITAMIN ORAL) Take 1 tablet by mouth once daily. - acetaminophen (TYLENOL 8 HOUR ORAL) Take by mouth as needed. - gabapentin (NEURONTIN) 100 mg capsule Take 1 capsule by mouth once daily. - nebivolol (BYSTOLIC) 5 mg tablet Take 2.5 mg by mouth once daily. Problem List As Of Date 12/26/2024 Noted Resolved Female stress incontinence [N39.3] 11/25/2014 Multiple thyroid nodules [E04.2] 12/24/2015 Endometrial polyp [N84.0] 06/13/2017 Intramural and submucous leiomyoma of uterus [D*08/01/2017 Submucous leiomyoma of uterus [D25.0] 08/01/2017 Left ear pain [H92.02] 02/07/2018 Autonomic dysfunction [G90.9] 04/17/2018 POTS (postural orthostatic tachycardia syndrome*04/17/2018 Atypical glandular cells of undetermined signif*05/30/2018 Encounter Status:Closed by SHAWNA SANCHEZ on 12/26/24NoBar[facility] 39-19-5240UPHDRervfl Visit (PMNA11) IRIS THOMASON ([id number]) 1965 F Date Time Provider Department 10/08/24 [...] or by mail. Following HPI dictated by [employer] software. HPI: Iris is a 59-year-old female with a history of POTS, presenting for evaluation of pulmonary hypertension and dyspnea. Iris reports a history of dyspnea and fatigue over the past year, with episodes of needle pain in the ear beginning in January while at a store. She was evaluated at [facility] in February, where an EKG was performed. Initial results were reported as normal, but she was later informed of abnormalities. She expresses dissatisfaction with the care received at [facility], citing poor communication and delays in test results. She underwent an echocardiogram, which initially suggested elevated pressures but was reportedly normal on repeat testing. She was referred for evaluation of pulmonary hypertension by her locomotive boilermaker, Dr. Fink, who discussed the possibility of a heart catheterization to measure pressures. 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 She can walk a [...] was previously evaluated at the [facility], where it was suggested that her [...] nearly 2 years. She underwent spirometry at [facility] in June, with normal results. She also [...] Upset Severe diarrhea Budesonide-Formote (more content not included)...NormalRiverview Health Institute MINUTE WALKon 52-31-6330GjkcrfczYair Hill MD 10/08/2024 2:53 PM RESPIRATORY THERAPY [...] Pre-Faye Dyspnea Rating Pre-Faye Fatigue Rating Post Faey Dyspnea Rating Post Faye Fatigue Rating Walking Assistance/O2 Supply Carrier 100 % 0 2 4 4 None Six Minute Walk Trend (Previous Encounters) None SIGNATURE: Aries Flores, COUNT TEAM MEMBER PATIENT NAME: Iris Thomason DATE: October 08, [...] DATE: October 08, 2024 TIME: 2:53 PM [facility] MINUTE WALKOrdered By: Yair Hill on 10-08-2024 [facility] Work Phone: CNOVon [phone] Visit ([facility]) IRIS THOMASON ([id number]) 1965 F Date Time Provider Department 10/05/24 12:30 PM WING FARRELL [facility] During your visit today, we recorded the following information about you: Pulse Blood pressure Weight 62/minute 152/85 88 kg Wing Farrell, SURFACE GRINDER TENDER.GAME SHOW HOST 10/05/2024 4:43 PM Signed [facility] INCIDENTAL LUNG NODULE PROGRAM (Follow Up) Impression [...] Nodule program: Completed Lung Nodule Program Location: [facility] History of Present Illness Iris Thomason is [...] duty. - 2/2 fatigue Modified [employer] [place] Dyspnea Scale (MMRC) I get short of [...] [place]: hysteroscopy, polypectomy [place] (more content not included)...[facility]Way[facility] CHEST WO IVCONon 12-28-8772BW CHEST WO IVCON* * *Final Report* * * DATE OF EXAM: Oct 05 2024 11:48AM [facility] 0541 - CT CHEST WO IVCON [...] lesions. Upper abdomen: Punctate right renal calculus. Scientific Photographer (topogram) images: Unremarkable. IMPRESSION: Linear band of [...] obtained in 12 months --END OF FINDING-- Sandfill Operator: DALLAS Transcribe Date/Time: Oct 05 2024 2:52P Dictated by : NITESH PAYNE MD This examination was interpreted and the report reviewed and electronically signed by: NITESH PAYNE MD on Oct 05 2024 2:59PM EST [id number] ACTIONABLEInvalid Interpretation CodeWayne Hospital Chest WO contrastOrdered By: Imelda Provider on 44-08-5903Afkwxrhrngckaq and review of laboratory resultsAbnormalCleveland ClinicRadiology ResultACTIONABLEAbnormal Riverview Health InstituteComment on above:This report contains an incidental or actionable finding. [...] contact your provider for the next steps. [facility] Chest WO contraston 98-52-0487PGEZUYTUWE: Linear band of atelectasis or scarring in [...] obtained in 12 months --END OF FINDING-- Sandfill Operator: DALLAS Transcribe Date/Time: Oct 05 2024 2:52P Dictated by : NITESH PAYNE MD This examination was interpreted and the report reviewed and electronically signed by: NITESH PAYNE MD on Oct 05 2024 2:59PM [facility] DIVISION OF RADIOLOGY* * *Final Report* * * DATE OF EXAM: Oct 05 2024 11:48AM [facility] - CT CHEST WO IVCON / PROCEDURE [...] lesions. Upper abdomen: Punctate right renal calculus. Scientific Photographer (topogram) images: Unremarkable. DIVISION OF RADIOLOGYProviwexner medical center, [facility] Imaging [place] - 10/05/2024 * * *Final Report* * * DATE OF EXAM: Oct 05 2024 11:48AM [facility] 0541 - CT CHEST WO IVCON [...] lesions. Upper abdomen: Punctate right renal calculus. Scientific Photographer (topogram) images: Unremarkable. IMPRESSION IMPRESSION: Linear band [...] obtained in 12 months --END OF FINDING-- Sandfill Operator: DALLAS Transcribe Date/Time: Oct 05 2024 2:52P Dictated by : NITESH PAYNE MD This examination was interpreted and the report reviewed and electronically signed by: NITESH PAYNE MD on Oct 05 2024 2:59PM [facility] Study observation (narrative)R[facility]view Health InstituteCNPNon 06-45-8495JGXFHpzmdfykw (PULMMN) IRIS THOMASON ([id number]) 1965 F Date Time Provider Department 10/04/24 [...] that these tests were performed at [facility] at the beginning of the year. The patient can be reached at [phone]. She is seeking clarification regarding her appointment [...] Date Reviewed: 08/16/2024 Reviewed by: Wing Farrell APRN.GAME SHOW HOST - Fully Assessed Reason for Visit: Patient Question [8667] Prescriptions as of 10/04/2024 - Cholecalciferol, Vitamin [...] signif*05/30/2018 Encounter Status:Closed by KELSI GRIFFIN on 10/04/24NoDetwiler [facility] Hospital Cultureon 04-18-7275Qmuvijsl identified Cx Nom (U)ORGANISM: Escherichia coli (O:ESCCOL) [place] Count >100,000 Aerobic JEOVANNY Charge (NMIC56) SUSCEPTIBILITY ORGANISM: O:ESCCOL ANTIBIOTIC INTERPRETATION JEOVANNY Amikacin S <16 Amoxacillin/K Clavulanate S <8 Ampicillin S <8 Ampicillin/Sulbactam S <4 Aztreonam S <4 Cefazolin S <2 Cefepime S <2 Ceftazidime S <1 Ceftazidime/Avibactam S <4 Ceftolozane/Tazobactam S <2 Ceftriaxone S <1 Cefuroxime S <4 Ciprofloxacin S <0.25 Ertapenem S <0.5 Gentamicin S <2 Levofloxacin S <0.5 Meropenem S <1 Meropenem/Vaborbactam S <2 Nitrofurantoin S <32 Piperacillin/Tazobactam S <8 Tetracycline S <4 Tigecycline S <2 Tobramycin S <2 Trimethoprim/Sulfamethoxazole S <0.5 S = SUSCEPTIBLE I = [...] RESISTANT TO ALL B-LACTAM DRUGS. PERFORMED BY: [place] [id number] LAURENT M.D.[facility] Physician GroupComment on above: Performed By: #### CUU #### [place] [address] USAEndometrial biopsyon 63-34-7608TkrkgipdKeiko Cordova DO 09/11/2024 9:20 AM Endometrial biopsy [...] pathology Patient tolerance: tolerated well, no immediate complicationsNovant Health Clemmons Medical CenterCNPNon 24-42-9785KTHEOfpyvpnqu (PULMLO) IRIS THOMASON ([id number]) 1965 F Date Time Provider Department 08/16/24 WING FARRELL PULMLO During your visit today, we recorded the following information about you: Wing Farrell, SURFACE GRINDER TENDER.[facility] 08/16/2024 9:56 AM Signed Please schedule [...] Date Reviewed: 08/16/2024 Reviewed by: Wing Farrell APRN.GAME SHOW HOST - Fully Assessed Prescriptions as of 08/20/2024 [...] signif*05/30/2018 Encounter Status:Closed by WING FARRELL on 08/20/24UC HealthNURSEon 90-19-1992VOCOXAQQtcji Visit (TE) IRIS THOMASON ([id number]) 1965 F Date Time Provider Department 07/31/24 3:00 PM NURSE CARD [facility] TE During your visit today, we recorded the following information about you: Heather Garcia LPN 07/31/2024 2:50 PM Signed HOLTER MONITOR APPLICATION Iris Thomason [id number] present today for the placement of a [...] day of removal 6.) Call with problems [phone] Pt aware Holter monitor cannot be instantly viewed and advised pt to go to ER for worsened or severe symptoms. Equipment Return and financial responsibility form signed Patient expresses good verbal understanding of instructions Holter Monitor #:[id number] Holter start time:2:15 PM Heather Garcia LPN Referring Provider: LORENZO LORA [[id number]] Allergies As of Date: 07/31/2024 Noted Allergy [...] for Visit: Holter Monitor Application [261] Visit Diagnoses:Palpitations [R00.2] Pulmonary hypertension (HCC) [I27.20] Order(s):HOLTER MONITOR 48 HOUR [0307786] Order #: [id number] Prescriptions as of 07/31/2024 - Cholecalciferol, Vitamin [...] signif*05/30/2018 Encounter Status:Closed by HEATHER GARCIA on 07/31/24[facility] 32-56-1818LSMAFKHQHKP: - Exam indication: PHTN - The left [...] findings. * * * Final * * *[facility] Echocardiography Report: Transthoracic Echo [facility] Date of service: 07/31/2024 1:43:38 PM LOUNGE DRIVER OR OPERATOR Ordering physician: LORENZO LORA Indication: PHTN Symptom(s): [...] to the right atrium. [facility]ART AND VASCULAR INSTITUTERiverview Health InstituteEchocardiographyEchocardiography Report: Transthoracic Echo [facility] Date of service: 07/31/2024 1:43:38 PM LOUNGE DRIVER OR OPERATOR Ordering physician: LORENZO LORA Indication: PHTN Symptom(s): [...] * * * Final * * * [employer] [facility] : [id number] [facility] NorthTER MONITOR 48 HOURon 28-54-6137FWMIGN MONITOR 48 HOURHolter Report : IMPRESSIONS AND FINDINGS: Sinus rhythm [...] Date: 20240731 Hookup Time: 14170712 Recording Duration: 526012 S Minimum Heart Rate: 53 BPM Minimum Heart Rate Date/Time: 20240801 093253 Maximum Heart Rate: 115 BPM Maximum Heart Rate Date/Time: 2024080236 Average Heart Rate: 68 BPM Longest RR: 1.340 S Longest RR DATE/TIME: 20240801 886411 QRS complexes: 335845 Ventricular Ectopics: 0 Ventricular Isolated Beats: 0 Ventricular Bigeminal Cycles: 0 Ventricular Couplets: 0 Ventricular Runs: 0 Ventricular Beats in Runs: 0 Supraventricular Ectopics: 61 Supraventricular Isolated Beats: 50 Supraventricular Couplets: 4 Supraventricular Runs: 1 Supraventricular Beats in Runs: 3 Longest Supraventricular Run Date/Time: 20240801 Fastest Supraventricular Run, Date/Time: 20240801 Overreading Physician: WAQAR CROCKER MDMorrow County HospitalXR CHEST 2V FRONTAL/LATon 30-27-7622YK CHEST 2V FRONTAL/LAT* * *Final Report* * * DATE OF [...] be communicated with the ordering provider via Earnest staff message or phone message by Imaging Support Services within 2 business days of report finalization. --END OF FINDING-- Algorithms for management of incidental imaging findings can be found on the [facility] Intranet Sharepoint site at: http://[email or web address]/documentation/mychartlinks/Managing%20Incidental%20Findi ngs%20at%20Imaging/Forms/AllItems.aspx Sandfill Operator: DALLAS Transcribe Date/Time: Jul 31 2024 3:02P Dictated by : AUBREE JUAREZ MD This examination was interpreted and the report reviewed and electronically signed by: AUBREE JUAREZ MD on Jul 31 2024 3:05PM EST [id number] [id number] Interpretation CodeSelect Medical [facility] Chest PA and LateralOrdered By: [facility] Provider on 26-12-4173Fltecipieigwvg and review of laboratory resultsAbnormalCleveland ClinicRadiology ResultACTIONABLEAbnormal [facility] InstituteComment on above:This report contains an incidental or actionable finding. [...] contact your provider for the next steps. [facility] Chest PA and Lateralon 29-79-9700FESTVYRPNO: 1. There is a questionable nodular opacity [...] be communicated with the ordering provider via Earnest staff message or phone message by Imaging Support Services within 2 business days of report finalization. --END OF FINDING-- Algorithms for management of incidental imaging findings can be found on the [facility] Intranet Sharepoint site at: http://[email or web address]/documentation/mychartlinks/Managing%20Incidental%20Findi ngs%20at%20Imaging/Forms/AllItems.aspx Sandfill Operator: DALLAS Transcribe Date/Time: Jul 31 2024 3:02P Dictated by : AUBREE JUAREZ MD This examination was interpreted and the report reviewed and electronically signed by: AUBREE JUAREZ MD on Jul 31 2024 3:05PM [facility] DIVISION OF RADIOLOGY* * *Final Report* * * DATE OF [...] Bones and soft tissues: Unremarkable. DIVISION OF RADIOLOGYProvider, [facility] [place] - 07/31/2024 * * *Final Report* * [...] be communicated with the ordering provider via Earnest staff message or phone message by Imaging Support Services within 2 business days of report finalization. --END OF FINDING-- Algorithms for management of incidental imaging findings can be found on the [facility] Intranet Sharepoint site at: http://spo.cc.org/documentation/mychartlinks/Managing%20Incidental%20Findi ngs%20at%20Imaging/Forms/AllItems.aspx Sandfill Operator: DALLAS Transcribe Date/Time: Jul 31 2024 3:02P Dictated by : AUBREE JUAREZ MD This examination was interpreted and the report reviewed and electronically signed by: AUBREE JUAREZ MD on Jul 31 2024 3:05PM EST [facility] InstituteRadiology Study observation (narrative)[facility] aminotransferase [Enzymatic activity/volume] in Serum or PlasmaOrdered By: Gautam Dill on 35-49-3626XKK [Catalytic activity/Vol]Alanine aminotransferase [Enzymatic activity/volume] in Serum or Plasma7-[facility] Medical CenterAlbumin [Mass/volume] in Serum or Plasma by Bromocresol green (BCG) dye binding methoOrdered By: Gautam Dill on 58-24-0356Nalabcb BCG dye [Mass/Vol] Albumin [Mass/volume] in Serum or Plasma by Bromocresol green (BCG) dye binding metho3.5-5.7FKettering Health – Soin Medical CenterAlkaline phosphatase [Enzymatic activity/volume] in Serum or PlasmaOrdered By: Gautam Dill on 07-75-7858YTB [Catalytic activity/Vol]Alkaline phosphatase [Enzymatic activity/volume] in Serum or Yhbwvm44-936IhgdwfemfUniversity Hospitals Samaritan Medical CenterAspartate aminotransferase [Enzymatic activity/volume] in Serum or PlasmaOrdered By: Gautam Dill on 70-39-3250ISD [Catalytic activity/Vol]Aspartate aminotransferase [Enzymatic activity/volume] in Serum or Qdtjun82-76QdmzfqqfpUniversity Hospitals Samaritan Medical Center Bilirubin.total [Mass/volume] in Serum or PlasmaOrdered By: Gautam Dill on 77-20-6033Piqscqfoy [Mass/Vol]Bilirubin.total [Mass/volume] in Serum or Plasma 0.3-1.0[facility] Samaritan Medical CenterCNPNon 37-89-5567BMGKZfqhqzuzm (CARD CHF DINH) KATELINIRIS ([id number]) 1965 F Date Time Provider Department 07/16/24 LORENZO LORA CARD CHF DINH During your visit today, we recorded the following information about you: Deon Duron 07/16/2024 1:03 PM Signed July 16, 2024 Name: Iris Thomason Patient Contact Number: [phone] (home) [phone] (cell) Date of last office visit: 07/04/2024 [...] signif*05/30/2018 Encounter Status:Closed by LORENZO LORA on 07/26/24NoCleveland Clinic South Pointe HospitalCalcium [Mass/volume] in Serum or PlasmaOrdered By: Gautam Dill on 53-30-0155Kpqwtew [Mass/Vol]Calcium [Mass/volume] in Serum or Plasma8.6-10.3 [facility]itan Medical CenterCarbon dioxide, total [Moles/volume] in Serum or PlasmaOrdered By: Gautam Dill on 73-94-1719VJ6 [Moles/Vol]Carbon dioxide, total [Moles/volume] in Serum or Yuydvl80.0-31.0[facility]itan Medical CenterChloride [Moles/volume] in Serum or PlasmaOrdered By: Gautam Dill on 23-17-7557Acilpwpz [Moles/Vol]Chloride [Moles/volume] in Serum or PlasmaHigh 98-107[facility]aritan Medical CenterComprehensive Metabolic Panelon 62-62-1449Ezdqpzq [Mass/Vol]4.5 g/dLNormal3.5-5.7[facility] Comment on above:Performed By: #### CMP, HS TROP #### [place] [address] USAAlbumin/Globulin [Mass ratio]2.4 {ratio}NormalThe Atrium Health Physician GroupComment on above:Performed By: #### CMP, HS TROP #### [place] [address] USAALP [Catalytic activity/Vol]84 U/OUfyppu32-902Foj [facility]ician GroupComment on above:Result Comment: PERFORMED BY: [place] [id number] LAURENT M.D.Performed By: #### CMP, HS TROP #### [place] [address] USAALT [Catalytic activity/Vol]18 U/LNormal7-52The [facility] Health Physician GroupComment on above:Performed By: #### CMP, HS TROP #### [place] [address] USAAnion gap [Moles/Vol]6.7 mmol/LNormal6.0-15.0The [facility] Health Physician GroupComment on above:Performed By: #### CMP, HS TROP #### [place] [address] USAAST [Catalytic activity/Vol]17 U/VZbnyck82-69Yvd [facility]ician GroupComment on above:Performed By: #### CMP, HS TROP #### [facility] [address] [place] [address] USABilirubin [Mass/Vol]0.7 mg/dLNormal0.3-1.0The [facility] Physician GroupComment on above:Performed By: #### CMP, HS TROP #### [place] [address] USACalcium [Mass/Vol]9.4 mg/dLNormal8.6-10.3The [facility] Physician GroupComment on above:Performed By: #### CMP, HS TROP #### [facility] [address] [place] [address] USAChloride [Moles/Vol]108 mmol/OKxel03-233Zhk [facility]ician GroupComment on above:Performed By: #### CMP, HS TROP #### [facility] [address] [place] [address] USACO2 [Moles/Vol]29.2 mmol/RDbwyav10.0-31.0The [facility] Physician GroupComment on above:Performed By: #### CMP, HS TROP #### [facility] [address] [place] [address] USACreatinine [Mass/Vol]0.90 mg/dLNormal0.60-1.20The [facility] Health Physician GroupComment on above:Performed By: #### CMP, HS TROP #### [facility] [address] [place] [address] USAGFR/1.73 sq M.predicted MDRD (S/P/Bld) [Vol rate/Area] mL/min/{1.73_m2}NormalThe Atrium Health Physician GroupComment on above:Performed By: #### CMP, HS TROP #### [place] [address] USAGlobulin (S) [Mass/Vol]1.9 g/dLNormalThe [facility]rium Health Physician GroupComment on above:Performed By: #### CMP, HS TROP #### [facility] [address] [place] [address] USAGlucose [Mass/Vol]90 mg/jWXsiavn34-250Waw [facility]ician GroupComment on above:Result Comment: Random Glucose Reference Range is dependent on time and content of last meal. Glucose of more than 200 mg/dL in a nonstressed, ambulatory subject supports the diagnosis of Diabetes Mellitus. ADA recommended reference rangePerformed By: #### CMP, HS TROP #### [facility] [address] [place] [address] USAPotassium [Moles/Vol]3.9 mmol/LNormal3.5-5.1The [facility] Health Physician GroupComment on above:Performed By: #### CMP, HS TROP #### [facility] [address] [place] [id number] USAProtein [Mass/Vol]6.4 g/dLNormal6.4-8.9The [facility] Health Physician GroupComment on above:Performed By: #### CMP, HS TROP #### [facility] [address] [place] [id number] USASodium [Moles/Vol]140 mmol/YHrsasj830-418Qed [facility]ician GroupComment on above:Performed By: #### CMP, HS TROP #### [facility] [address] [place] [id number] USAUrea nitrogen [Mass/Vol]15 mg/dLNormal7-25The [facility] Health Physician GroupComment on above:Performed By: #### CMP, HS TROP #### [facility] [address] [place] [id number] USACreatinine [Mass/volume] in Serum or PlasmaOrdered By: Gautam Dill on 06-34-8223Pcuuozomuw [Mass/Vol]Creatinine [Mass/volume] in Serum or Plasma0.60-1.20[facility]aritan Medical CenterGlobulin Calc (S) [Mass/Vol] Ordered By: Gautam Dill on 27-30-9434Ptuhxdpl (S) [Mass/Vol]Serum globulin measurement by calculation (mass/volume)[facility]itan Medical CenterGlucose [Mass/volume] in Serum or PlasmaOrdered By: Gautam Dill on 91-44-9965Gtsofeu [Mass/Vol]Glucose [Mass/volume] in Serum or Owvwzh56-111HpumwecepUniversity Hospitals Samaritan Medical CenterComment on above:ADA recommended reference rangeRandom Glucose Reference Range is dependent on time and content of last meal. Glucose of more than 200 mg/dL in a nonstressed, ambulatory subject supports the diagnosisof Diabetes Mellitus.No Panel InformationOrdered By: Gautam Dill on 07-16-2024 Estimated GFR (CKD-EPI)> 60.0 mL/MinUniversity Hospitals Samaritan Medical CenterPharmacy Creatinine Clearance (ChemN/AFirelands Regional Medical CenterPotassium [Moles/volume] in Serum or PlasmaOrdered By: Gautam Dill on 36-97-8722Xowlffour [Moles/Vol]Potassium [Moles/volume] in Serum or Plasma3.5-5.1FKettering Health – Soin Medical CenterProtein [Mass/volume] in Serum or PlasmaOrdered By: Gautam Dill on 94-38-5327Farrmbj [Mass/Vol]Protein [Mass/volume] in Serum or Plasma6.4-8.9 [facility] Hospital - Youngstownerum or plasma albumin/globulin mass ratio Ordered By: Gautam Dill on 20-82-0173Iipcyne/Globulin [Mass ratio]Serum or plasma albumin/globulin mass ratioSelect Medical Specialty Hospital - Youngstownerum or plasma anion gap determinationOrdered By: Gautam Dill on 29-38-3429[place] gap [Moles/Vol] Serum or plasma anion gap determination6.0-15.0[facility] Sodium [Moles/volume] in Serum or PlasmaOrdered By: Gautam Dill on 07-16-2024 Sodium [Moles/Vol]Sodium [Moles/volume] in Serum or Ycnhgb044-930XmwhiggeyUniversity Hospitals Samaritan Medical CenterTroponin I High Sensitivityon 24-69-7822Iqgkuhdv I High Sensitivity<3Ttsgef8-71Els [facility] Physician GroupComment on above:Result Comment: The Troponin units of report have been changed to meet the Chest Pain Accreditation requirement, element EC5.M1l2. Troponin units are changed from pg/ml to ng/L. Also, the decimal is removed and results are in whole numbers. PERFORMED BY: [place] [id number] LAURENT M.D.Performed By: #### CMP, HS TROP #### [place] [address] USATroponin I.cardiac [Mass/volume] in Serum or Plasma by Detection limit <= 0.01 ng/Ordered By: Gautam Dill on 87-29-2871Ivnxamfl I.cardiac DL <= 0.01 ng/mL [Mass/Vol]Troponin I.cardiac [Mass/volume] in Serum or Plasma by Detection limit <= 0.01 ng/0-15[facility] Comment on above:The Troponin units of report have been changed to meet the Chest Pain Accreditation requirement, element EC5.M1l2. Troponin units are changed from pg/ml to ng/L. Also, the decimal is removed and results are in whole numbers.Urea nitrogen [Mass/volume] in Serum or PlasmaOrdered By: Gautam Dill on 49-48-0223Aujx nitrogen [Mass/Vol]Urea nitrogen [Mass/volume] in Serum or Plasma11-30[facility] Medical CenterDocumentationon 07-15-2024 [id number] Iris Thomason 1965 F Date Provider Department Center 07/15/2024 [id number] SEQUEIRA [facility] [place] HeartVAS No family history on fileNormalUniversity of Methodist Dallas Medical CenterCNPNon 72-22-7048UFRCSnkwxcnzm (CARD CHF DINH) IRIS THOMASON ([id number]) 1965 F Date Time Provider Department 07/09/24 LORENZO LORA CARD CHF DINH During your visit today, we recorded the following information about you: Rohini Day 07/09/2024 12:29 PM Addendum July 09, 2024 Name: Iris Thomason Patient Contact Number: [phone] (home) [phone] (cell) Date of last office visit: 07/04/2024 [...] RN - Fully Assessed Reason for Visit: Advice Only [[id number]] Prescriptions as of 07/17/2024 - Cholecalciferol, Vitamin [...] signif*05/30/2018 Encounter Status:Closed by LORENZO LORA on 07/17/24NoCleveland Clinic South Pointe HospitalCNPNTelephone (RIQ) IRIS THOMASON ([id number]) 1965 F Date Time Provider Department 07/09/24 [...] Routing: If records complete - route to [facility] for clinical team review. If records incomplete - please route to judicial administrative assistant. Radha Laguerre RN 07/10/2024 8:20 AM Signed Referral has [...] signif*05/30/2018 Encounter Status:Closed by ASHUTOSH ANTHONY on 07/09/24[facility] HospitalBasophils Auto (Bld) [#/Vol]on 41-12-8045Tylpafxvh (Bld) [#/Vol] Automated basophil count0.0-0.1FKettering Health – Soin Medical CenterBasophils/100 WBC Auto (Bld)on 72-66-6887Qvvuknhrf/100 WBC (Bld)Automated basophil %0.2-2.0 [facility] Medical CenterCNPNon 51-84-2108IGFHIossxvbhg (CARD CHF DINH) IRIS THOMASON ([id number]) 1965 F Date Time Provider Department 07/06/24 LORENZO LORA [facility] During your visit today, we recorded the following information about you: Sanjuana Pardo 07/06/2024 11:03 AM Signed July 06, 2024 Name: Iris Thomason Patient Contact Number: [phone] (home) [phone] (cell) Date of last office visit: 07/04/2024 [...] Dr. Lora when he is available at [phone]. Physician: Lorenzo Lora MD Patient was informed [...] signif*05/30/2018 Encounter Status:Closed by LORENZO LORA on 07/17/24NormalCMercy Health Urbana HospitalEosinophils/100 WBC Auto (Bld)on 12-69-0306Zvfctouyqjr/100 WBC (Bld) Automated eosinophil %0.9-7.0[facility]itan Medical CenterErythrocyte distribution width Auto (RBC) [Ratio]on 19-64-8736Wgibkqmyrdk distribution width (RBC) [Ratio]Erythrocyte distribution width [Ratio] by Automated count11.0-15.0 [facility] Medical CenterEstimated glomerular filtration rate (GFR) non- Americanon 12-24-4191PFS/1.73 sq M.predicted among non-blacks MDRD (S/P/Bld) [Vol rate/Area]Estimated glomerular filtration rate (GFR) non->=60 mL/min/1.73m 2FKettering Health – Soin Medical CenterHematocrit Auto (Bld) [Volume fraction]on 62-43-8581Teajdoaknm (Bld) [Volume fraction]Hematocrit [Volume Fraction] of Blood by Automated count36.0-48.0[facility]itan Medical CenterHemoglobin [Mass/volume] in Bloodon 96-31-3582Zidusjrvst (Bld) [Mass/Vol] Hemoglobin [Mass/volume] in Blood12.0-16.0[facility] IMMUNOFIXATION SCREEN, SERUMOrdered By: Ca Díaz on 16-49-1146OZV ResultNo M protein is identified.No M protein is identified.[facility] Fairview Hospitaltaff Review (MPA)Reviewed by Jay Jay Rain MD, Ph.D ([id number])[facility] HospitalLaboratory - Chemistry and Chemistry - challengeon 43-01-6864Dywgzsa [Mass/Vol]8.9 mg/dL8.5-10.1Fire[facility] Regional Medical CenterChloride [Moles/Vol] 106 mmol/S39-174EzmbptolcUniversity Hospitals Samaritan Medical CenterCO2 [Moles/Vol]24.0 mmol/L 21.0-32.0[facility] Medical CenterCreatinine [Mass/Vol]0.89 mg/dL 0.55-1.02[facility] Medical CenterGFR/1.73 sq M.predicted MDRD (S/P/Bld) [Vol rate/Area]mL/min/{1.73_m2}>=60 mL/min/1.73m 2FKettering Health – Soin Medical CenterGlucose [Mass/Vol]102 mg/kY97-038LyvzietkpUniversity Hospitals Samaritan Medical Center Potassium [Moles/Vol]3.9 mmol/L3.5-5.1FCleveland Clinic South Pointe Hospitalodium [Moles/Vol]140 mmol/I025-254CwfxkeaukUniversity Hospitals Samaritan Medical CenterUrea nitrogen [Mass/Vol]12.0 mg/dL7.0-18.0[facility] Medical CenterUrea nitrogen/Creatinine [Mass ratio]13.5 mg/mgUniversity Hospitals Samaritan Medical Center Laboratory - Hematology and Cell countson 01-60-3147Xkewhzvs granulocytes/100 WBC (Bld)0.3 %0.0-0.5FKettering Health – Soin Medical CenterLeukocytes [#/volume] corrected for nucleated erythrocytes in Blood by Automated counon 53-55-7959KVV corrected for nucl RBC Auto (Bld) [#/Vol]Leukocytes [#/volume] corrected for nucleated erythrocytes in Blood by Automated counLow4.0-11.0[facility] Medical CenterLymphocytes Auto (Bld) [#/Vol]on 93-30-6832Nbjvifmzsbl (Bld) [#/Vol]Lymphocytes [#/volume] in Blood by Automated count1.2-3.8[facility]itan Medical CenterLymphocytes/100 WBC Auto (Bld)on 07-06-2024 Lymphocytes/100 WBC (Bld)Lymphocytes/100 leukocytes in Blood by Automated count 20.5-60.0[facility] Auto (RBC) [Entitic mass]on 02-61-7519QDW (RBC) [Entitic mass]MCH [Entitic mass] by Automated count26.7-34.0 [facility] Auto (RBC) [Mass/Vol]on 18-65-6742ZZDM (RBC) [Mass/Vol]MCHC [Mass/volume] by Automated count29.9-35.2FKettering Health – Soin Medical CenterMCV Auto (RBC) [Entitic vol]on 52-58-5342KHG (RBC) [Entitic vol] MCV [Entitic volume] by Automated count81.0-99.0[facility] Medical CenterMonocytes Auto (Bld) [#/Vol]on 13-29-9639Yubankgnt (Bld) [#/Vol]Automated blood monocyte countLow0.3-0.8[facility] Medical CenterMonocytes/100 WBC Auto (Bld)on 97-85-3934Eujboxhse/100 WBC (Bld)Automated monocyte %1.7-12.0 [facility] Medical CenterNeutrophils Auto (Bld) [#/Vol]on 07-06-2024 Neutrophils (Bld) [#/Vol]Neutrophils [#/volume] in Blood by Automated count 1.4-6.5FKettering Health – Soin Medical CenterNeutrophils/100 WBC Auto (Bld)on 84-99-1383Uztdbstxkco/100 WBC (Bld)Automated neutrophil %43.0-75.0[facility] Medical CenterNo Panel Informationon 07-16-5765Ixcyijvdkjb # (Auto)0.2 10 3/uL0.0-0.7FKettering Health – Soin Medical CenterImmature Granulocyte # (Auto)0.01 10 3/uL0.00-0.03[facility] Medical CenterPlatelet mean volume Auto (Bld) [Entitic vol]on 91-25-6575Hhzszkhu mean volume (Bld) [Entitic vol]Platelet mean volume [Entitic volume] in Blood by Automated count9.5-13.5FKettering Health – Soin Medical CenterPlatelets Auto (Bld) [#/Vol]on 97-83-1356Ytvczsjlw (Bld) [#/Vol]Platelets [#/volume] in Blood by Automated vymmz670-592IhaeesuknUniversity Hospitals Samaritan Medical CenterRBC Auto (Bld) [#/Vol]on 88-03-8894RLA (Bld) [#/Vol]Erythrocytes [#/volume] in Blood by Automated count4.20-5.40[facility] Serum or plasma anion gap determinationon 41-27-4646Fyodf gap [Moles/Vol]Serum or plasma anion gap determinationUniversity Hospitals Samaritan Medical CenterCNPNon 37-42-2295CYDUAvbcyolin (CARD CHF DINH) IRIS THOMASON ([id number]) 1965 F Date Time Provider Department 07/05/24 LORENZO LORA CARD [facility] DINH During your visit today, we recorded the following information about you: Sanjuana Pardo 07/05/2024 3:22 PM Signed July 05, 2024 Name: Iris Thomason Patient Contact Number: [phone] (home) [phone] (cell) Date of last office visit: 07/04/2024 Reason For Call: Other Issue: Patient went to yesterday to get holter monitor. They were not able to get insurance approval in time. Can she get it at one of the [facility] locations nearer to here like the [facility]? Iris Thomason is asking for someone to call her at [phone]. Physician: Lorenzo Lora MD Patient was informed [...] signif*05/30/2018 Encounter Status:Closed by PENNY OAKLEY on 07/06/24NormalCleveland [facility] Medical CenterComprehensive metabolic 2000 panelon 48-34-5432Aezqavy [Mass/Vol]4.5 g/dL3.9 - 4.9 g/dLManitowoc ClinicALP [Catalytic activity/Vol]99 U/L34 - 123 U/L [facility] ClinicALT [Catalytic activity/Vol]26 U/L7 - 38 U/LCKnox Community Hospital Anion gap [Moles/Vol]14 mmol/L8 - 15 mmol/LCleveland ClinicAST [Catalytic activity/Vol]33 U/L13 - 35 U/LCleveland [facility]ipestone [facility] Medical CenterBilirubin [Mass/Vol]0.3 mg/dL0.2 - 1.3 mg/dLManitowoc ClinicCalcium [Mass/Vol]10 mg/dL8.5 - 10.2 mg/dLRiverview Health InstituteChloride [Moles/Vol]108 mmol/LHigh98 - 107 mmol/LCleveland ClinicCO2 [Moles/Vol]22 mmol/L22 - 30 mmol/LCleveland [facility]ipestone [facility] Medical CenterCreatinine [Mass/Vol]0.92 mg/dL0.58 - 0.96 mg/dLRiverview Health InstituteGFR/1.73 sq M.predicted among non-blacks MDRD (S/P/Bld) [Vol rate/Area]72 mL/min/{1.73_m2}- PINProMedica Flower HospitalComment on above:Estimated Glomerular Filtration Rate (eGFR) is calculated using the 2020 CKD-EPI creatinine equation. This equation utilizes serum creatinine, sex, and age as parameters. The creatinine assay has traceable calibration to isotope dilution-mass spectrometry. Refer to KDIGO guidelines for clinical inte rpretation. In patients with unstable renal function, e.g. those with acute kidney injury, the eGFRmay not accurately reflect actual GFR.Glucose [Mass/Vol] 85 mg/dL74 - 99 mg/dLRiverview Health InstituteComment on above:The [place] Diabetes Association (ADA) provides guidance for cutoff [...] Standards of Medical Care in Diabetes 2016, [place] Diabetes Association. Diabetes Care. 2016.39(Suppl 1). Potassium [Moles/Vol]5.8 mmol/LHigh3.7 - 5.1 mmol/LCleveland ClinicProtein [Mass/Vol]7 g/dL6.3 - 8.0 g/dLManitowoc ClinicSodium [Moles/Vol]144 mmol/L136 - 144 mmol/LCleveland ClinicUrea nitrogen [Mass/Vol]17 mg/dL7 - 21 mg/dLRiverview Health InstituteKAPPA/CALDERON,FREE,SEROrdered By: Abimbola Abdul on 07-05-2024 Immunoglobulin light chains.kappa.free (S) [Mass/Vol]13.1 mg/L3.3 - 19.4 mg/L [facility] Health Systemment on above:Rarely, increased serum free light chains levels may not be detected or accurately quantified due to prozone phenomenon or in high viscosity samples using this immunoturbidimetric assay. Correlation w ith other laboratory results and clinical findings is recommended. The [place] Free Light Chain was performed using the Binding Site Optilite immunoturbidimetric method. Result obtained with different assay methods or kits cannot be used interchangeably. Immunoglobulin light chains.kappa/Immunoglobulin light chains.lambda (S) [Mass ratio]1.540.26 - 1.65Riverview Health InstituteImmunoglobulin light chains.lambda.free [Mass/Vol]8.5 mg/L5.7 - 26.3 mg/LCKnox Community HospitalComment on above:Rarely, increased serum free light chains levels may [...] used interchangeably. Interpretation and review of laboratory resultsNormalClevelLake County Memorial Hospital - WestLipid 1996 panelon 16-88-0931Xhueufjzviv [Mass/Vol]217 mg/dLHighNINF - 200 mg/dLRiverview Health InstituteComment on above:<200 mg/dL, Desirable 200-239 mg/dL, Borderline high >239 mg/dL, High Cholesterol in HDL [Mass/Vol]71 mg/dL39 - PINF mg/dLRiverview Health InstituteComment on above:40-59 mg/dL, Acceptable >59 mg/dL, High: Negative risk factor for coronary heart disease <40 mg/dL, Low: Positive risk factor for coronary heart disease Cholesterol in LDL [Mass/Vol]122 mg/dLHighNINF - 100 mg/dLRiverview Health Institute Comment on above:<100 mg/dL, Optimal 100-129 mg/dL, Near optimal/above optimal 130-159 mg/dL, Borderline high 160-189 mg/dL, High >189 mg/dL, Very high Secondary prevention optimal LDL Cholesterol levels are recommended to be < 70 mg/dL Cholesterol in LDL/Cholesterol in HDL [Mass ratio]1.72 {ratio}NINF - 2.54 Riverview Health InstituteComment on above:Reference: 1. National Cholesterol Education Program ATP III Guideline At-A-Glance Quick Desk Reference: National Heart, Lung, and Blood [place]. National Institutes of Health. 2001: NIH Publication No. 01-3305. 2. An International Atherosclerosis Society position paper: global recommendations for the management of dyslipidemia: executive summary, Atherosclerosis. 2014: 232(2):410-413. Cholesterol in VLDL [Mass/Vol]24 mg/dLNINF - 30 mg/dLRiverview Health InstituteCholesterol non HDL [Mass/Vol]146 mg/dLHighNINF - 130 mg/dLRiverview Health InstituteComment on above:<130 mg/dL, Optimal 130-159 mg/dL, Near optimal/above optimal 160-189 mg/dL, Borderline high 190-219 mg/dL, High >219 mg/dL, Very high Secondary prevention optimal non HDL Cholesterol levels are recommended to be <100 mg/dL Cholesterol.total/Cholesterol in HDL [Mass ratio]3.06 {ratio}NINF - 5.10 [facility] InstituteFasting Time3.5hrsRiverview Health InstituteTriglyceride [Mass/Vol]119 mg/dLNINF - 150 mg/dLRiverview Health InstituteComment on above:<150 mg/dL, Normal 150-199 mg/dL, Borderline high 200-499 mg/dL, High >499 mg/dL, Very high NT PRO BNPon 17-23-5357Eifqefifuab peptide.B prohormone N-Terminal [Mass/Vol]85 pg/mLNINF - 125 pg/mLClevelPremier Health Miami Valley HospitalNatriuretic peptide.B prohormone N-Terminal [Mass/Vol]on 38-70-7955Wjjbglrkkbjxqw and review of laboratory resultsNormal [facility] InstituteNo Panel Informationon 64-23-7156Qvfxauwvdmziki and review of laboratory resultsAbnormalCMartin Memorial HospitalTHYROID STIMULATING HORMONEon 88-83-0170SSL Qn1.46 m[IU]/LCleveland Pipestone County Medical CenterTSH Qnon 07-05-2024 Interpretation and review of laboratory resultsNormalCleveland Norwalk Memorial HospitalBasophils Auto (Bld) [#/Vol]on 90-77-2110Uyptmlfjb (Bld) [#/Vol]Automated basophil count<0.11[facility] Medical CenterBasophils/100 WBC Auto (Bld) on 00-80-7399Wcqfhqxdz/100 WBC (Bld)Automated basophil %[facility] Medical CenterBlood manual differential comment interpretation narrativeon 94-12-9315Tbvizz differential comment [place] (Bld) [Interp]Blood manual differential comment interpretation narrativeUniversity Hospitals Samaritan Medical Center CBC W Auto Differential panel (Bld)on 82-78-9139Ftcdcnjgr (Bld) [#/Vol]0.04 10*3/uLNINFRiverview Health InstituteBasophils/100 WBC (Bld)0.8 %[facility] Differential cell count method Nom (Bld)AutoCleveland ClinicEosinophils (Bld) [#/Vol]0.29 10*3/uLNINFRiverview Health InstituteEosinophils/100 WBC (Bld)5.8 %Riverview Health InstituteErythrocyte distribution width (RBC) [Ratio]13.9 %11.5 - 15.0 %R[facility]view Health InstituteHematocrit (Bld) [Volume fraction]45.7 %36.0 - 46.0 %[facility] Hemoglobin (Bld) [Mass/Vol]14.7 g/dL11.5 - 15.5 g/dLRiverview Health InstituteImmature granulocytes (Bld) [#/Vol]0.04 10*3/uLNINFRiverview Health InstituteImmature granulocytes/100 WBC (Bld)0.8 %[facility] Health InstituteLymphocytes (Bld) [#/Vol]1.78 10*3/uLRiverview Health InstituteLymphocytes/100 WBC (Bld)35.3 %[facility]tering Health DaytonH (RBC) [Entitic mass]29.9 pg26.0 - 34.0 pgClevelRed Lake Indian Health Services HospitalHC (RBC) [Mass/Vol]32.2 g/dL30.5 - 36.0 g/dLKettering Health DaytonV (RBC) [Entitic vol]93.1 fL80.0 - 100.0 fLClevelPremier Health Miami Valley HospitalMonocytes (Bld) [#/Vol]0.34 10*3/uLNINFRiverview Health Institute Monocytes/100 WBC (Bld)6.7 %Riverview Health InstituteNeutrophils (Bld) [#/Vol]2.55 10*3/uLRiverview Health InstituteNeutrophils/100 WBC (Bld)50.6 %[facility] Health InstituteNucleated RBC (Bld) [#/Vol]NINFCleveland Pipestone County Medical CenterNucleated RBC/100 WBC (Bld) [Ratio]0 %/100 WBCRiverview Health InstitutePlatelet mean volume (Bld) [Entitic vol]11 fL9.0 - 12.7 fL [facility] InstitutePlatelets (Bld) [#/Vol]185 10*3/uLManitowoc ClinicRBC (Bld) [#/Vol]4.91 10*6/uL3.90 - 5.20 m/uLRiverview Health InstituteWBC (Bld) [#/Vol]5.04 10*3/uL [facility] ClinicBasophils (Bld) [#/Vol]0.04 10*3/uLNormal<0.11 [facility] on above:Order Comment: Specimen Type: BLOOD SPECIMENOrdering Facility: [facility] Address:[address] [place], [place] [address]Performed By: #### 92159-0 ####[facility] LABCLIA [id number] [place] [address] [place] AMERICABasophils/100 WBC (Bld)0.8 %NormalPremier Health Upper Valley Medical Center on above:Order Comment: Specimen Type: BLOOD SPECIMENOrdering Facility: [facility] Address:[address] [place], [place] [address]Performed By: #### 14686-3 ####[facility] LABCLIA [id number] [place] [address] [place] AMERICADifferential cell count method Nom (Bld)AutoNormalCUC Medical Center on above:Order Comment: Specimen Type: BLOOD SPECIMENOrdering Facility: [facility] Address:[address] [place], [place] [address]Performed By: #### 06261- 8 ####[facility] LABCLIA [id number] [place] [address] [place] AMERICAEosinophils (Bld) [#/Vol]0.29 10*3/uLNormal<0.46[facility] on above:Order Comment: Specimen Type: BLOOD SPECIMENOrdering Facility: [facility] Address:[address] [place], [place] [address]Performed By: #### 34497-5 ####[facility] LABIA [id number] [place] [address] [place] AMERICAEosinophils/100 WBC (Bld)5.8 % NormalPremier Health Upper Valley Medical Center on above:Order Comment: Specimen Type: BLOOD SPECIMENOrdering Facility: [facility] Address:[address] [place], [place] [address]Performed By: #### 11154-0 ####[facility] LABIA [id number] [place] [address] [place] AMERICAErythrocyte distribution width (RBC) [Ratio]13.9 %Normal 11.5-15.0[facility] on above:Order Comment: Specimen Type: BLOOD SPECIMENOrdering Facility: [facility] Address:[address] [place], [place] [address]Performed By: #### 88819-7 ####[facility] LABIA [id number] [place] [address] [place] AMERICAHematocrit (Bld) [Volume fraction]45.7 %Scjzvt84.0-46.0 [facility] on above:Order Comment: Specimen Type: BLOOD SPECIMENOrdering Facility: [facility] Address:[address] [place], [place] [address]Performed By: #### 04291-4 ####[facility] LABIA [id number] [place] [address] [place] AMERICAHemoglobin (Bld) [Mass/Vol]14.7 g/yILioify82.5-15.5[facility] on above:Order Comment: Specimen Type: BLOOD SPECIMENOrdering Facility: [facility] Address:[address] [place], [place] [address]Performed By: #### 20059-0 ####[facility] LABIA [id number] [address] [address] [place], [place] [address] [place] Immature granulocytes (Bld) [#/Vol]0.04 10*3/uLNormal<0.10[facility] on above:Order Comment: Specimen Type: BLOOD SPECIMENOrdering Facility: [facility] Address:[address] [place], [place] [address]Performed By: #### 41068-7 ####[facility] LABCLIA [id number] [place] [address] [place] Immature granulocytes/100 WBC (Bld)0.8 %NormalPremier Health Upper Valley Medical Center on above:Order Comment: Specimen Type: BLOOD SPECIMENOrdering Facility: [facility] Address:[address] [place] [address] Performed By: #### 63835-1 ####[facility] LABCLIA [id number] [place] [address] [place] Lymphocytes (Bld) [#/Vol]1.78 10*3/uLNormal1.00-4.00[facility] Comment on above:Order Comment: Specimen Type: BLOOD SPECIMENOrdering Facility: [facility] Address:[address] [place] [address] Performed By: #### 69667-2 ####[facility] LABCLIA [id number] [address] [place] Lymphocytes/100 WBC (Bld)35.3 %NormalPremier Health Upper Valley Medical Center on above: Order Comment: Specimen Type: BLOOD SPECIMENOrdering Facility: [facility] Address:[address] [place], [place] [address]Performed By: #### 11259- 8 ####[facility] LABIA [id number] [place] [address] [place] [facility]HABILITATION HOSPITALMCH (RBC) [Entitic mass]29.9 pg Sstfhu41.0-34.0[facility] on above:Order Comment: Specimen Type: BLOOD SPECIMENOrdering Facility: [facility] Address:[address] [place], [place] [address]Performed By: #### 69064-0 ####[facility] LABCLIA [id number] [address]ETMCHC (RBC) [Mass/Vol]32.2 g/dL Ebchzb50.5-36.0[facility] on above:Order Comment: Specimen Type: BLOOD SPECIMENOrdering Facility: [facility] Address:[address] [place], [place] [address]Performed By: #### 32267-7 ####[facility] LABIA [id number] [address]ETMCV (RBC) [Entitic vol]93.1 fL Aimvqs91.0-100.0[facility] on above:Order Comment: Specimen Type: BLOOD SPECIMENOrdering Facility: [facility] Address:[address] [place], [place] [address]Performed By: #### 72467-7 ####[facility] LABIA [id number] [address], [place] [address] [place] AMERICAMonocytes (Bld) [#/Vol]0.34 10*3/uLNormal<0.87[facility] on above:Order Comment: Specimen Type: BLOOD SPECIMENOrdering Facility: [facility] Address:[address] [place], [place] [address]Performed By: #### 15910-2 ####[facility] LABCLIA [id number] [address] STATES OF AMERICAMonocytes/100 WBC (Bld)6.7 % NormalPremier Health Upper [facility] Center on above:Order Comment: Specimen Type: BLOOD SPECIMENOrdering Facility: [facility] Address:[address] [place], [place] [address]Performed By: #### 79372-5 ####[facility] LABIA [id number] [place] [address] [place] AMERICANeutrophils (Bld) [#/Vol]2.55 10*3/uLNormal1.45-7.50[facility] on above:Order Comment: Specimen Type: BLOOD SPECIMENOrdering Facility: [facility] Address:[address] [place], [place] [address]Performed By: #### 13413-4 ####[facility] LABCLIA [id number] [place] [address] [place] AMERICANeutrophils/100 WBC (Bld)50.6 %NormalPremier Health Upper [facility] Center on above:Order Comment: Specimen Type: BLOOD SPECIMENOrdering Facility: [facility] Address:[address] [place] [address] Performed By: #### 43367-1 ####[facility] LABIA [id number] [place] [address] [place] Nucleated RBC (Bld) [#/Vol]10*3/uLNormal<0.01[facility] on above:Order Comment: Specimen Type: BLOOD SPECIMENOrdering Facility: [facility] Address:[address] [place] [address] Performed By: #### 65339-1 ####[facility] LABIA [id number] [place] [address] [place] Nucleated RBC/100 WBC (Bld) [Ratio]0.0 /100 WBCNormalCMercy Health Urbana Hospital Comment on above:Order Comment: Specimen Type: BLOOD SPECIMENOrdering Facility: [facility] Address:[address] [place] [address] Performed By: #### 01313-7 ####[facility] LABIA [id number] [place] [address] [place] Platelet mean volume (Bld) [Entitic vol]11.0 fLNormal9.0-12.7[facility] on above:Order Comment: Specimen Type: BLOOD SPECIMENOrdering Facility: [facility] Address:[address] [place], [place] [address]Performed By: #### 30610-9 ####[facility] LABIA [id number] [address] [place] [address] [facility] Platelets (Bld) [#/Vol]185 10*3/oHCejcap141-278QioekctmaPremier Health Upper [facility] Center on above:Order Comment: Specimen Type: BLOOD SPECIMENOrdering Facility: [facility] Address:[address] [place] [address] Performed By: #### 91856-0 ####[facility] LABIA [id number] [address], [facility]95 [facility] RBC (Bld) [#/Vol]4.91 10*6/uLNormal3.90-5.20[facility] on above:Order Comment: Specimen Type: BLOOD SPECIMENOrdering Facility: [facility] Address:[address] [place], [place] [address]Performed By: #### 76506-7 ####[facility]ITALIA [id number] [address]ETWBC (Bld) [#/Vol]5.04 10*3/uLNormal3.70-11.00[facility] on above:Order Comment: Specimen Type: BLOOD SPECIMENOrdering Facility: [facility] Address:[address] [place], [place] [address]Performed By: #### 79023-0 ####[facility] LABIA [id number] [place] [address] [facility] CAMPUSCK SerPl-cCncon 93-41-7546AF [Catalytic activity/Vol]74 U/IUrtkcd29-924XdfobckavPremier Health [facility] on above:Order Comment: Specimen Type: BLOOD SPECIMENOrdering Facility: [facility] Address:[address] [place], [place] [address]Performed By: #### HSTNT, 2157-6 ####[facility] LABCLIA [id number] [address] [place] [address] [place] AMERICACK [Catalytic activity/Vol]on 53-43-5319Vyvzkwdhtvkmqe and review of laboratory resultsNormal [facility] InstituteCNOVon 15-00-2109ZYPCBakyyf Visit (CARD CHF DINH) IRIS THOMASON ([id number]) 1965 F Date Time Provider Department 07/04/24 2:15 PM LORENZO LORA CARD CHF DINH During your visit today, we recorded the following information about you: Pulse Blood pressure Weight Height 65/minute 149/83 88.6 kg 1.689 m Lorenzo Lora MD 08/12/2024 5:05 PM Signed [facility] SECTION OF HEART FAILURE and CARDIAC TRANSPLANT MEDICINE OUTPATIENT VISIT DATE July 04, 2024 OUTPATIENT VISIT TYPE Consultation PRIMARY CARE PHYSICIAN: Gautam Dill [address] [place] [address] CHIEF COMPLAINT: Palpitations NURSING INTAKE (Patient?s concerns and/or recent hospitalizations/ER visits): Iris Thomason is a 59 y/o female from [place], [place] second opinion on pulmonary HTN Pt [...] side of chest. Was seen locally in [place], had EKG done that was abnormal. Wore [...] - PMH - PAST MEDICAL HISTORY OF epstieorin elise dx per blood work - POTS [...] removed - PAST SURGICAL HISTORY OF 1995 dANDc - SKIN BX, 1 LESION facial - [...] See Comments Other Reaction(s) (more content not included)...NormalKettering Health Main Campus CREATINE KINASE/CKon 91-61-8239QC [Catalytic activity/Vol]74 U/L42 - 196 U/L [facility] InstituteCholesterol in LDL Calc [Mass/Vol]on 33-06-2923Pcbemertvhw in LDL [Mass/Vol]Cholesterol in LDL [Mass/volume] in Serum or Plasma by calculation High<100[facility] CenterComment on above:<100 mg/dL, Optimal 100-129 mg/dL, Near optimal/above optimal 130-159 mg/dL, Borderline high 160-189 mg/dL, High>189 mg/dL, Very highSecondary prevention optimal LDL Cholesterol levels are recommended to be < 70 mg/dLCholesterol in VLDL Calc [Mass/Vol]on 49-82-7351Yhrizrqbwfa in VLDL [Mass/Vol]Cholesterol in VLDL [Mass/volume] in Serum or Plasma by calculation<30[facility] Medical CenterComprehensive metabolic 2000 panelon 61-98-7122Jyvtmbg [Mass/Vol]4.5 g/dLNormal3.9-4.9 [facility] CampusComment on above:Order Comment: Specimen Type: BLOOD SPECIMENOrdering Facility: [facility] Address:[address] [place], [place] [address]Performed By: #### 60628-9, 3016-3, 27026-1, 03942-5 ####[facility] LABCLIA [id number] [place] [address] [place] AMERICAALP [Catalytic activity/Vol]99 U/BBtrwwn49-250WlsubbpwmPremier Health [facility] on above:Order Comment: Specimen Type: BLOOD SPECIMENOrdering Facility: [facility] Address:[address] [place], [place] [address]Performed By: #### 21904-2, 3016-3, 56898-5, 88270-5 ####[facility] LABCLIA [id number] [place] [address] [place] AMERICAALT [Catalytic activity/Vol]26 U/LNormal7-38[facility] on above:Order Comment: Specimen Type: BLOOD SPECIMENOrdering Facility: [facility] Address:[address] [place], [place] [address]Performed By: #### 15837- 8, 3016-3, 66791-1, 10137-3 ####[facility] LABCLIA [id number] [place] [id number] [place] AMERICAAnion gap [Moles/Vol]14 mmol/LNormal8-15[facility] on above: Order Comment: Specimen Type: BLOOD SPECIMENOrdering Facility: [facility] Address:[address] [place], [place] [address]Performed By: #### 23553- 8, 3016-3, 07022-8, 16870-6 ####[facility] LABCLIA [id number] [place] [address] [place] AMERICAAST [Catalytic activity/Vol]33 U/UWzioyg13-01CamuuexswPremier Health [facility] Center on above:Order Comment: Specimen Type: BLOOD SPECIMENOrdering Facility: [facility] Address:[address] [place], [place] [address]Performed By: #### 42253-0, 3016-3, 65150-4, 18113-8 ####[facility] LABCLIA [id number] [place] [address] [place] Bilirubin [Mass/Vol]0.3 mg/dLNormal0.2-1.3[facility] on above:Order Comment: Specimen Type: BLOOD SPECIMENOrdering Facility: [facility] Address:[address] [place], [place] [address]Performed By: #### 17974-2, 3016-3, 70268-3, 67645-7 ####[facility] LABIA [id number] [place] [address] [place] Calcium [Mass/Vol]10.0 mg/dLNormal8.5-10.2[facility] on above:Order Comment: Specimen Type: BLOOD SPECIMENOrdering Facility: [facility] Address:[address] [place], [place] [address]Performed By: #### 08239-1, 3016-3, 27594-0, 70563-7 ####[facility] LABIA [id number] [place] [address] [place] Chloride [Moles/Vol]108 mmol/JMahy08-123BtbuoziaaPremier Health Upper Valley Medical Center on above:Order Comment: Specimen Type: BLOOD SPECIMENOrdering Facility: [facility] Address:[address] [place], [place] [address]Performed By: #### 99385-8, 3016-3, 49910-2, 25607-1 ####[facility] LABIA [id number] [place] [address] [place] CO2 [Moles/Vol]22 mmol/UQyzwtg44-19PpqhhyosxPremier Health Upper [facility] Center on above: Order Comment: Specimen Type: BLOOD SPECIMENOrdering Facility: [facility] Address:[address] [place], [place] [address]Performed By: #### 98318- 8, 3016-3, 28059-7, 87747-8 ####[facility] LABCLIA [id number] [address] [address] [place] Creatinine [Mass/Vol]0.92 mg/dLNormal0.58-0.96[facility] on above:Order Comment: Specimen Type: BLOOD SPECIMENOrdering Facility: [facility] Address:[address] [place] [address] Performed By: #### 83346-2, 3016-3, 03530-9, 34058-5 ####[facility]ITALIA [id number] [address] [address] [place] [facility] HOSPITALCreatinine and Glomerular filtration rate.predicted panel (S/P/Bld)72 mL/min/1.73m???Normal>=60[facility] on above: Order Comment: Specimen Type: BLOOD SPECIMENOrdering Facility: [facility] Address:[address] [place], [place] [address]Result Comment: Estimated Glomerular Filtration Rate (eGFR) is calculated using the 2020 CKD-EPI cre atinine equation. This equation utilizes serum creatinine, sex, and age as parameters. The creatinine assay has traceable calibration to isotope dilution- mass spectrometry. Refer to KDIGO guidelines for clinical interpretation. In patients with unstable renal function, e.g. those with acute kidney injury, the eGFR may not accurately reflect actual GFR.Performed By: #### 55997-8, 3016-3, 95734-1, 26454-0 ####[facility] LABIA [id number] [address] [address] [place] AMERICAGlucose [Mass/Vol]85 mg/sZDgecdr11-11EybjvacxpPremier Health Upper [facility] Center on above:Order Comment: Specimen Type: BLOOD SPECIMENOrdering Facility: [facility] Address:[address] [place], [place] [address]Result Comment: The [place] Diabetes Association (ADA) provides guidance for cutoff [...] Standards of Medical Care in Diabetes 2016, [place] [employer]. Diabetes Care. 2016.39(Suppl 1).Performed By: #### 50050-3, 3016-3, 21506-5, 04032-1 ####[facility] LABCLIA [id number] [place] [address] [place] AMERICAPotassium [Moles/Vol] 5.8 mmol/LHigh3.7-5.1[facility] on above:Order Comment: Specimen Type: BLOOD SPECIMENOrdering Facility: [facility] Address:[address] [place], [place] [address]Performed By: #### 76697-0, 3016-3, 79093-9, 98204-0 ####[facility] LABIA [id number] [place] [address] [place] AMERICAProtein [Mass/Vol]7.0 g/dLNormal6.3-8.0[facility] on above:Order Comment: Specimen Type: BLOOD SPECIMENOrdering Facility: [facility] Address:[address] [place], [place] [address]Performed By: #### 88382-7, 3016-3, 64866-6, 51978-3 ####[facility] LABIA [id number] [place] [address] [place] AMERICASodium [Moles/Vol]144 mmol/RYebczt172-644GzujajobaPremier Health [facility] on above:Order Comment: Specimen Type: BLOOD SPECIMENOrdering Facility: [facility] Address:[address] [place] [address]Performed By: #### 05079-0, 3016-3, 83205-4, 90065-5 ####[facility] LABCLIA [id number] [place] [address] [place] AMERICAUrea nitrogen [Mass/Vol]17 mg/dLNormal7-21[facility] CampusComment on above:Order Comment: Specimen Type: BLOOD SPECIMENOrdering Facility: [facility] Address:[address] [place], [place] [address]Performed By: #### 85544- 8, 3016-3, 96442-6, 20515-6 ####[facility] LABCLIA [id number] [place] [address] [place] AMERICAECG COMPLETEon 42-46-5516DNZ COMPLETEVentricular Rate : 66 BPM Atrial Rate : 66 BPM P-R Interval : 120 ms QRS Duration : 86 ms Q-T Interval : 398 ms QTC Calculation(Bazett) : 417 ms Calculated P Reynolds Station : 23 degrees Calculated R Reynolds Station : 52 degrees Calculated T Reynolds Station : 34 degrees NORMAL SINUS RHYTHM ANTERIOR T WAVE ABNORMALITY ABNORMAL ECG Confirmed by SIMBA ACKERMAN MD () on 07/20/2024 2:29:40 PM NAME : IRIS THOMASON PID : [id number] : 1965 Gender : Female Race : ORD : [id number] Procedure Date : Jul 04 2024 13:24:17 Edit Date : Jul 20 2024 14:31:15 Diagnosis: NORMAL SINUS RHYTHM ANTERIOR T WAVE ABNORMALITY ABNORMAL ECG Confirmed by SIMBA ACKERMAN MD ([id number]) on 07/20/2024 2:29:40 PM Test Reason : Location : 314 : [facility] Overread By : SIMBA ACKERMAN MD Edited By : SIMBA ACKERMAN MD Referred By : , Acquired by : Tommy APODACAKettering Health Main CampusEosinophils/100 WBC Auto (Bld)on 47-33-0764Thfhjbmqgap/100 WBC (Bld)Automated eosinophil %[facility] Medical CenterErythrocyte distribution width Auto (RBC) [Ratio]on 54-85-8437Lhsaxuzmczr distribution width (RBC) [Ratio]Erythrocyte distribution width [Ratio] by Automated count11.5-15.0[facility] Medical CenterHIGH SENSITIVITY TROPONIN Ton 02-08-0365Dkrfbbksfokztr and review of laboratory resultsAbnormalCleveland ClinicTroponin T.cardiac High sensitivity method [Mass/Vol]26 ng/LHighNINF - 12 ng/LCleveland ClinicTroponin T.cardiac High sensitivity method [Mass/Vol]26 ng/LHigh<12[facility] on above:Order Comment: Specimen Type: BLOOD SPECIMENOrdering Facility: [facility] Address:[address] [place], [place] [address]Performed By: #### HSTNT, 2157-6 ####[facility] LABCLIA [id number] [facility] [id number] [place], [place] [address]Hematocrit Auto (Bld) [Volume fraction]on 46-79-4737Tjhzbhuadz (Bld) [Volume fraction]Hematocrit [Volume Fraction] of Blood by Automated count36.0-46.0[facility] Medical CenterHemoglobin [Mass/volume] in Bloodon 01-20-2741Ybkyexaamh (Bld) [Mass/Vol] Hemoglobin [Mass/volume] in Blood11.5-15.5FKettering Health – Soin Medical Center IMMUNOFIXATION SCREEN, SERUMon 45-87-3197BSS RESULTNo M protein is identified. NormalNo M protein is identified.[facility] on above: Order Comment: Specimen Type: BLOOD SPECIMENOrdering Facility: [facility] Address:[address] [place], [place] [address]Performed By: #### IFESC ####[facility] LABCLIA [id number] [facility]K [address] [address] [place] [facility] CHILDREN'S MEDICAL CENTERSTAFF REVIEW (MPA)Reviewed by Jay Jay Rain MD, Ph.D ([id number])[facility] on above:Order Comment: Specimen Type: BLOOD SPECIMENOrdering Facility: [facility] Address:[address] [place], [place] [address]Performed By: #### IFESC ####[facility] LABCLIA [id number] RICARDOTheo SCHULZ [id number] [place] [address] [place] AMERICAImmunoglobulin light chains.kappa.free [Mass/volume] in Serumon 81-46-8830Awkpoqzmxnvxpc light chains.kappa.free (S) [Mass/Vol]Immunoglobulin light chains.kappa.free [Mass/volume] in Serum3.3-19.4FKettering Health – Soin Medical CenterComment on above: Rarely, increased serum free light chains levels may not be detected or accurately quantified due to prozone phenomenon or in high viscosity samples using this immunoturbidimetric assay. Correlation with other laboratory results and clinical findings is recommended. The [place] Free Light Chain was performed using the Binding Site Optilite immunoturbidimetric method. Result obtained with different assay methods or kits cannot be used interchangeably.Immunoglobulin light chains.kappa.free/Immunoglobulin light chains.lambda.free [Dre 11-36-8603Zsgpnhrefydqha light chains.kappa.free/Immunoglobulin light chains.lambda.free (S) [Mass ratio]Immunoglobulin light chains.kappa.free/Immunoglobulin light chains.lambda.free [Mass0.26-1.65 [facility] Medical CenterImmunoglobulin light chains.lambda.free [Mass/volume] in Serum or Plasmaon 68-59-2666Xzkxfbwurbpdkn light chains.lambda.free [Mass/Vol]Immunoglobulin light chains.lambda.free [Mass/volume] in Serum or Plasma5.7-26.3FKettering Health – Soin Medical CenterComment on above:Rarely, increased serum free light chains levels may not be detected or accurately quantified due to prozone phenomenon or in high viscosity samples using this immunoturbidimetric assay. Correlation with other laboratory results and clinical findings is recommended. The [place] Free Light Chain was performed using the Binding Site Optilite immunoturbidimetric method. Result obtained with differentassay methods or kits cannot be used interchangeably. KAPPA/CALDERON,FREE,SERon 20-08-1498Oltaonwhshltlk light chains.kappa.free (S) [Mass/Vol]13.1 mg/LNormal3.3-19.4CMercy Health Urbana HospitalComment on above: Order Comment: Specimen Type: BLOOD SPECIMENOrdering Facility: [facility] Address:[address] [place], [place] [address]Result Comment: Rarely, increased serum free light chains levels may not be detected or accurately q uantified due to prozone phenomenon or in high viscosity samples using this immunoturbidimetric assay. Correlation with other laboratory results and clinical findings is recommended. The [place] Free Light Chain was performed using the Binding Site Optilite immunoturbidimetric method. Result obtained with different assay methods or kits cannot be used interchangeably.Performed By: #### KLFRS ####[facility] LABCLIA [id number] [place] [address] [place] OF AMERICAImmunoglobulin light chains.kappa/Immunoglobulin light chains.lambda (S) [Mass ratio]1.33Abntqq6.26-1.65[facility] Comment on above:Order Comment: Specimen Type: BLOOD SPECIMENOrdering Facility: [facility] Address:[address] [place] [address] Performed By: #### KLFRS ####[facility] LABCLIA [id number] [place] [address] [place] [facility] HOSPITALImmunoglobulin light chains.lambda.free [Mass/Vol]8.5 mg/LNormal5.7-26.3CMercy Health Urbana HospitalComment on above:Order Comment: Specimen Type: BLOOD SPECIMENOrdering Facility: [facility] Address:[address] [place], [place] [address]Result Comment: Rarely, increased serum free light chains levels may not be detected or accurately quantified due to prozone phenomenon or in high viscosity samples using this immunoturbidimetric assay. Correlation with other laboratory results and clinical findings is recommended. The [place] Free Light Chain was performed using the Binding Site Optilite immunoturbidimetric method. Result obtained with different assay methods or kits cannot be used interchangeably.Performed By: #### KLFRS ####[facility] LABCLIA [id number] [place] [address] [place] OF AMERICALaboratory - Chemistry and Chemistry - challengeon 24-17-0380Xeoqkcz [Mass/Vol]4.5 g/dL3.9-4.9[facility] CenterALP [Catalytic activity/Vol]99 U/D71-304QamjakfpxUniversity Hospitals Samaritan Medical CenterALT [Catalytic activity/Vol]26 U/L7-38[facility] CenterAST [Catalytic activity/Vol]33 U/B80-64PeoaqqwtnUniversity Hospitals Samaritan Medical CenterBilirubin [Mass/Vol]0.3 mg/dL0.2-1.3FKettering Health – Soin Medical CenterCalcium [Mass/Vol] 10.0 mg/dL8.5-10.2FKettering Health – Soin Medical CenterChloride [Moles/Vol]108 mmol/RReyh23-555DyctdwlxxUniversity Hospitals Samaritan Medical CenterCholesterol [Mass/Vol]217 mg/dL High<200[facility] CenterComment on above:<200 mg/dL, Desirable 200-239 mg/dL, Borderline high>239 mg/dL, HighCholesterol in HDL [Mass/Vol]71 mg/dL>39[facility] Medical CenterComment on above:40-59 mg/dL, Acceptable>59 mg/dL, High: Negative risk factor for coronary heart disease<40 mg/dL, Low: Positive risk factor for coronary heart diseaseCK [Catalytic activity/Vol]74 U/D32-713JveoehmdnUniversity Hospitals Samaritan Medical CenterCO2 [Moles/Vol]22 mmol/D70-42AupzwsehdUniversity Hospitals Samaritan Medical CenterCreatinine [Mass/Vol]0.92 mg/dL 0.58-0.96[facility] Medical CenterGlucose [Mass/Vol]85 mg/dL74-99 [facility] CenterComment on above:The [place] Diabetes Association (ADA) provides guidance for cutoff [...] hyperglycemia or hyperglycemic crisis, random plasma glucose resultsgreater than or equal to 200 mg/dL meet the criteria for diagnosis of diabetes.Reference: Standardsof Medical Care in Diabetes 2016, [place] Diabetes Association. Diabetes Care. 2016.39(Suppl 1). Potassium [Moles/Vol]5.8 mmol/LHigh3.7-5.1FKettering Health – [facility] Center Sodium [Moles/Vol]144 mmol/K754-766UjkrvejooUniversity Hospitals Samaritan Medical CenterTriglyceride [Mass/Vol]119 mg/dL<150[facility] Medical CenterComment on above:<150 mg/dL, Normal 150-199 mg/dL, Borderline high 200-499 mg/dL, High>499 mg/dL, Very highTSH Qn1.460 m[IU]/L0.270-4.200[facility] Medical CenterUrea nitrogen [Mass/Vol]17 mg/dL7-21[facility] Medical CenterLaboratory - Hematology and Cell countson 88-79-5409Sdgofzonead (Bld) [#/Vol]0.29 10*3/uL <0.46[facility] Medical CenterImmature granulocytes (Bld) [#/Vol]0.04 10*3/uL<0.10[facility] Medical CenterImlee's summit hospital granulocytes/100 WBC (Bld) 0.8 %[facility] Medical CenterLeukocytes [#/volume] corrected for nucleated erythrocytes in Blood by Automated counon 65-97-5644ZHE corrected for nucl RBC Auto (Bld) [#/Vol]Leukocytes [#/volume] corrected for nucleated erythrocytes in Blood by Automated coun3.70-11.00[facility] Medical CenterLipid 1996 panelon 49-20-2615Ubjlcnornup [Mass/Vol]217 mg/dLHigh<200 [facility] on above:Order Comment: Specimen Type: BLOOD SPECIMENOrdering Facility: [facility] Address:[address] [place], [place] [address]Result Comment: <200 mg/dL, Desirable 200-239 mg/dL, Borderline high >239 mg/dL, HighPerformed By: #### 64241-9, 3016-3, 23690-0, 14589-8 ####[facility] LABCLIA [id number] [place] [address] [place] AMERICACholesterol in HDL [Mass/Vol]71 mg/dLNormal>39[facility] ClevelandComment on above:Order Comment: Specimen Type: BLOOD SPECIMENOrdering Facility: [facility] Address:[address] [place], [place] [address]Result Comment: 40-59 mg/dL, Acceptable >59 mg/dL, High: Negative risk factor for coronary heart disease <40 mg/dL, Low: Positive risk factor for coronary heart diseasePerformed By: #### 63605-2, 3016-3, 16085-3, 93459-0 ####[facility] LABCLIA [id number] [address] [address] [place] Cholesterol in LDL [Mass/Vol]122 mg/dLHigh<100[facility] CampusComtrinity health [facility] hospital on above:Order Comment: Specimen Type: BLOOD SPECIMENOrdering Facility: [facility] Address:[address] [place], [place] [address]Result Comment: <100 mg/dL, Optimal 100-129 mg/dL, Near optimal/above optimal 130-159 mg/dL, Borderline high 160-189 mg/dL, High >189 mg/dL, Very high Secondary prevention optimal LDL Cholesterol levels are recommended to be < 70 mg/dLPerformed By: #### 23730-2, 3016-3, 83645-1, 51409-9 ####[facility] LABCLIA [id number] [place] [id number] [place] OF AMERICACholesterol in LDL/Cholesterol in HDL [Mass ratio]1.72 {ratio}Normal<2.54[facility] on above:Order Comment: Specimen Type: BLOOD SPECIMENOrdering Facility: [facility] Address:[address] [place], [place] [address]Result Comment: Reference: 1. National Cholesterol Education Program ATP III Guideline At-A-Glance Quick Desk Reference: National Heart, Lung, and Blood [place]. National Institutes of Health. 2001: NIH Publication No. 01-3305. 2. An International Atherosclerosis Society position paper: global recommendations for the management of dyslipidemia: executive summary, Atherosclerosis. 2014: 232(2):410-413.Performed By: #### 38714-9, 3016-3, 67359- 1, 03928-9 ####[facility] LABCLIA [id number] [facility] [address] [place] [address] [place] AMERICACholesterol in VLDL [Mass/Vol]24 mg/dLNormal<30[facility] on above:Order Comment: Specimen Type: BLOOD SPECIMENOrdering Facility: [facility] Address:[address] [place] [id number] By: #### 30062- 8, 3016-3, 12740-2, 32530-9 ####[facility] LABCLIA [id number] [address] [address] [place] Cholesterol non HDL [Mass/Vol]146 mg/dLHigh<130[facility] on above:Order Comment: Specimen Type: BLOOD SPECIMENOrdering Facility: [facility] Address:[address] [place], [place] [address]Result Comment: <130 mg/dL, Optimal 130-159 mg/dL, Near optimal/above optimal 160-189 mg/dL, Borderline high 190-219 mg/dL, High >219 mg/dL, Very high Secondary prevention optimal non HDL Cholesterol levels are recommended to be <100 mg/dLPerformed By: #### 82228-2, 3016-3, 91424-7, 04707-7 ####[facility] LABCLIA [id number] [address] [address] [place] AMERICACholesterol.total/Cholesterol in HDL [Mass ratio] 3.06 {ratio}Normal<5.10[facility] on above:Order Comment: Specimen Type: BLOOD SPECIMENOrdering Facility: [facility] Address:[address] [place], [place] [address]Yocctbtzk By: #### 26620-9, 3016-3, 44417-0, 04630-6 ####[facility] LABCLIA [id number] [facility] [address] [place] [address] [place] OF AMERICAFASTING TIME3.5 hrs NormalPremier Health Upper Valley Medical Center on above:Order Comment: Specimen Type: BLOOD SPECIMENOrdering Facility: [facility] Address:[address] [place], [place] [address]Performed By: #### 10048-3, 3016-3, 01762-5, 66197-2 ####[facility] LABCLIA [id number] [place] [address] [place] AMERICATriglyceride [Mass/Vol]119 mg/dL Normal<150[facility] CampusComment on above:Order Comment: Specimen Type: BLOOD SPECIMENOrdering Facility: [facility] Address:[address] [place], [place] [address]Result Comment: <150 mg/dL, Normal 150-199 mg/dL, Borderline high 200-499 mg/dL, High >499 mg/dL, Very highPerformed By: #### 12714-9, 3016-3, 53299-4, 28359-6 ####[facility] LABCLIA [id number] [place] [id number] [place] OF AMERICALymphocytes Auto (Bld) [#/Vol]on 75-91-8443Pmofzshkjlv (Bld) [#/Vol]Lymphocytes [#/volume] in Blood by Automated count1.00-4.00[facility] Medical CenterLymphocytes/100 WBC Auto (Bld)on 37-26-6303Dgjxlcfcfwk/100 WBC (Bld)Lymphocytes/100 leukocytes in Blood by Automated countMercy Health Lorain Hospital Auto (RBC) [Entitic mass]on 97-46-0179RML (RBC) [Entitic mass]MCH [Entitic mass] by Automated count26.0-34.0 [facility] Medical CenterMCHC Auto (RBC) [Mass/Vol]on 06-29-5699WWWF (RBC) [Mass/Vol]MCHC [Mass/volume] by Automated count30.5-36.0[facility] HospitalV Auto (RBC) [Entitic vol]on 23-56-4588LQO (RBC) [Entitic vol] MCV [Entitic volume] by Automated count80.0-100.0[facility] Medical CenterMonocytes Auto (Bld) [#/Vol]on 84-27-6640Xrmjviqtm (Bld) [#/Vol]Automated blood monocyte count<0.87[facility] CenterMonocytes/100 WBC Auto (Bld)on 87-03-8762Bbygiwtbf/100 WBC (Bld)Automated monocyte %[facility] CenterNT-proBNP SerPl-mCncon 01-14-1543Caiqluymrle peptide.B prohormone N-Terminal [Mass/Vol]85 pg/mLNormal<125[facility] CampusComtrinity health [facility] on above:Order Comment: Specimen Type: BLOOD SPECIMENOrdering Facility: [facility] Address:[address] [place], [place] [address]Performed By: #### 37099-3, 3016-3, 96193-1, 79175-0 ####[facility] LABCLIA [id number] [place] [address] [place] Natriuretic peptide.B prohormone N-Terminal [Mass/volume] in Serum or Plasmaon 39-99-6592Vweashgeldd peptide.B prohormone N-Terminal [Mass/Vol]Natriuretic peptide.B prohormone N-Terminal [Mass/volume] in Serum or Plasma<125[facility] Medical CenterNeutrophils Auto (Bld) [#/Vol]on 01-47-8609Jusyabplwxb (Bld) [#/Vol]Neutrophils [#/volume] in Blood by Automated count1.45-7.50 [facility] Medical CenterNeutrophils/100 WBC Auto (Bld)on 07-04-2024 Neutrophils/100 WBC (Bld)Automated neutrophil %[facility] No Panel Informationon 36-24-5879Gppmbiczf ClinicEstimated GFR (CKD-EPI)72 mL/min/1.73m???>=60[facility] CenterComment on above:Estimated Glomerular Filtration Rate (eGFR) is calculated using the 2020 CKD-EPI creatinine equation. This equation utilizes serum creatinine, sex, and age as parameters. The creatinine assay has traceable calibration to isotope dilution- mass spectrometry. Refer to KDIGO guidelines for clinical interpretation. In patients with unstable renal function, e.g. those with acute kidney injury, the eGFRmay not accurately reflect actual GFR.Fasting Status3.5 hrsUniversity Hospitals Samaritan Medical CenterLeuk/Lymph Sign Pathologist (Misc)Reviewed by Jay Jay Rain MD, Ph.D ([id number])[facility] CenterNon-HDL Roqbycahwoc299 mg/dLHigh<130[facility] CenterComment on above:<130 mg/dL, Optimal 130-159 mg/dL, Near optimal/above optimal 160-189 mg/dL, Borderline high 190-219 mg/dL, High>219 mg/dL, Very highSecondary prevention optimal non HDL Cholesterol levels are recommended to be <100 mg/dLSerum ImmunofixationNo M protein is identified.No M protein is identified.[facility] Medical CenterTroponin T Hi Sens Cardiac Xdkhybus89 ng/LHigh<12[facility] CenterNucleated RBC Auto (Bld) [#/Vol]on 18-57-2056Myiztingh RBC (Bld) [#/Vol]Nucleated erythrocytes [#/volume] in Blood by Automated count<0.01 [facility] CenterNucleated erythrocytes [Presence] in Blood by Automated counton 12-11-9716Romodbcle RBC Auto Ql (Bld)Nucleated erythrocytes [Presence] in Blood by Automated countUniversity Hospitals Samaritan Medical CenterPlatelet mean volume Auto (Bld) [Entitic vol]on 05-64-1731Spcblolo mean volume (Bld) [Entitic vol]Platelet mean volume [Entitic volume] in Blood by Automated count 9.0-12.7FKettering Health – Soin Medical CenterPlatelets Auto (Bld) [#/Vol]on 00-05-4480Cgfqzmnfu (Bld) [#/Vol]Platelets [#/volume] in Blood by Automated -575TdklqbxmgUniversity Hospitals Samaritan Medical CenterProtein [Mass/volume] in Serum or Plasmaon 20-84-0017Bcomtri [Mass/Vol]Protein [Mass/volume] in Serum or Plasma 6.3-8.0[facility] Medical CenterRBC Auto (Bld) [#/Vol]on 88-49-4232ZJU (Bld) [#/Vol]Erythrocytes [#/volume] in Blood by Automated count3.90-5.20 [facility] Youngstownerum or plasma anion gap determinationon 64-48-1374Oyafh gap [Moles/Vol]Serum or plasma anion gap determination8-15 [facility] Youngstownerum or plasma total cholesterol/high density lipoprotein (HDL) cholesterol mass ugo 82-42-9075Wvtfftdytox.total/Cholesterol in HDL [Mass ratio]Serum or plasma total cholesterol/high density lipoprotein (HDL) cholesterol mass rat<5.10[facility] CenterTS SerPl-aCncon 59-04-1445UBS Qn1.460 m[IU]/LNormal0.270-4.200[facility] on above:Order Comment: Specimen Type: BLOOD SPECIMENOrdering Facility: [facility] Address:[address] [place] [address] Performed By: #### 65721-5, 3016-3, 55720-6, 30792-2 ####[facility] LABCLIA [id number] [place] [address] [place] [facility] HOSPITALDocumentationon [id number] Iris Thomason 1965 F Date Provider Department Center 06/19/2024 [id number]-KDXESQIRIS SEQUEIRA [facility] HeartVAS No family history on fileNormalUniversOhio State East Hospital36on 08-80-945112Wnhg ms for pt to return call to discuss results of PFT. Not sure if she is referring to PFT or sleep study results but we only have sleep study. Where was PFT done? Called [facility] and they will fax PFT results Scanned into [facility] HospitalCNPNon 70-75-7731MJYW Telephone (CARD CHF DINH) IRIS THOMASON ([id number]) 1965 F Date Time Provider Department 06/15/24 LORENZO LORA CARD [facility] DINH During your visit today, we recorded the following information about you: Rohini Day 06/15/2024 3:59 PM Signed Outside Echo report scanned into [employer] for review. Allergies As of Date: 06/15/2024 [...] signif*05/30/2018 Encounter Status:Closed by LORENZO LORA on 06/21/[address] calling again requesting to know what you thought about her PFT results. Left same message 3 weeks agoNormalLakeHealth Beachwood Medical CenterTelephoneon [id number] Iris Thomason 1965 F Date Provider Department Center 06/14/2024 2486-[facility] HVC CARD [facility] HeartVAS No family history on filermMercy Health – The Jewish HospitalniCommunity Regional Medical CenterDocumentation on [id number] Iris Thomason 1965 F Date Provider Department Center 05/26/2024 [id number]-WHMYOBIRIS SEQUEIRA HVC CARD [facility] No family history on [facility]36on 93-52-105140Dxneppu called to notify us that her sleep study was completed last week at [facility]. I contacted the facility to request the results, will send them over to us now for the provider to review.[facility]29on 00-21-540929Wyoxolsp by: SYLVIA BARLOW on: 05/07/2024 03:25 PM Modules accepted: OrdersNormalUniversity Greene Memorial Hospital29Addended by: IRIS SEQUEIRA on: 05/08/2024 10:50 AM Modules accepted: [facility] HospitalrmalUOhioHealth Arthur [facility]37on 04-23-2024 37Decrease Nebivolol to 1/2 of 5mg and see if less fatigue, and that your palpitations don't feel worse. When you have dental work, ask for the numbing agent with out adrenalin or epinephrine Do start to exercise on treadmill 5 mins twice per day and gradually increase to goal of 20 mins per day. More information after labs. [employer] gives you access to your chart and appointments. It is a great way to communicate with your provider, look at test results, renew prescriptions, schedule or cancel appointments and more. [facility] encourages you to sign up and get started with [employer]. --Please ask any of our staff for assistance --Go to [email or web address] Communicationst and click sign up now. --on your cell phone download the rafael: [employer] for [facility] --Call [facility] IT help desk at [phone]. Kind regards, Iris Sequeira, PAC [place] Cardiovascular Medicine Contact me via [employer] P[employer] Developer Sylvia Barrera [phone] of [facility]edo Medical CenterB-TYPE NATRIURETIC PEPTIDE on 79-55-8323Gaknjpxpjrg peptide B (Bld) [Mass/Vol]95 pg/mLNormal0-100UnACMC Healthcare System GlenbeighComment on above:Performed By: #### [id number] #### [facility] ([facility] [address] [place], [place] [address]TOHop 77-74-3941Gwlkxdqsgtz distribution width (RBC) [Ratio]13.2 %Ogcfsx29.5-15.0UnACMC Healthcare System GlenbeighComment on above:Performed By: #### [id number] #### [facility] (BEAKER) [address] [place], [place] [address]RGYUHPGXQZT MEAN CORPUSCULAR HEMOGLOBIN CONCENTRATION (G/DL) BY OXRMINFGX64.9 g/rCVhwoza33.0-35.0UnACMC Healthcare System GlenbeighComment on above:Performed By: #### [id number] #### [facility] (BEAKER) [address] [place], [place] [address]Ompkuctyao (Bld) [Volume fraction]46.5 %Tefrxy22.0-48.0 [facility] Medical CenterComment on above:Performed By: #### [id number] #### [facility] (BEAKER) [address] [place], [place] [address]Rrkvezndks (Bld) [Mass/Vol]15.3 g/fLFrqt71.0-15.0UnACMC Healthcare System GlenbeighComment on above:Performed By: #### [id number] #### [facility] (BEAKER) [address] [place], [place] [address]FGU (RBC) [Entitic mass]30.1 elKzaikz71.0-33.0UnACMC Healthcare System GlenbeighComment on above:Performed By: #### [id number] #### [facility] ([facility]) [address] [place], [place] [address]KZT (RBC) [Entitic vol]91.4 zEVcspti61.0-98.0UnACMC Healthcare System GlenbeighComment on above:Performed By: #### [id number] #### [facility] ([facility]) [address] [place] [address]XRTFHIXVT (10*3/UL) IN BLOOD AUTOMATED XBJDT659 10*3/uLNormal 150-400UnACMC Healthcare System GlenbeighComment on above:Performed By: #### [id number] #### [facility] ([facility]) [address] [place] [address]LVN (Bld) [#/Vol]5.09 10*6/uLHigh3.80-5.00UnACMC Healthcare System GlenbeighComment on above:Performed By: #### [id number] #### [facility] ([facility]) [address] [place] [address]GNL (Bld) [#/Vol]4.51 10*3/uLNormal4.00-10.60UnACMC Healthcare System GlenbeighComment on above:Performed By: #### [id number] #### [facility] ([facility]) [address] [place] [address]GTNADNCGCCHPE METABOLIC PANELon 89-56-9582Difortb [Mass/Vol]4.5 g/dLNormal3.5-5.7UnACMC Healthcare System GlenbeighComment on above:Performed By: #### [id number] ####[facility] ([facility])[address] [place] [address] ALP [Catalytic activity/Vol]91 U/SHmupoa97-755WenyldfqhgACMC Healthcare System GlenbeighComment on above:Performed By: #### [id number] ####[facility] ([facility])[address] [place] [address]PUJ [Catalytic activity/Vol]17 U/L Normal7-52UnACMC Healthcare System GlenbeighComment on above:Performed By: #### [id number] ####[facility] ([facility])[address] [place] [place], [place] [address]Lfwex gap [Moles/Vol]10 mmol/LNormal7-20UnACMC Healthcare System GlenbeighComment on above:Performed By: #### [id number] ####[facility] ([facility])[address] [place], [place] [address]PYP [Catalytic activity/Vol]18 U/WWyhukg82-38MfvtnpygjwACMC Healthcare System GlenbeighComment on above:Performed By: #### [id number] ####[facility] ([facility])[address] [place], [place] [address]Jzrguyoab [Mass/Vol]0.5 mg/dL Normal0.3-1.0UnACMC Healthcare System GlenbeighComment on above:Performed By: #### [id number] ####[facility] ([facility])[address] [place] [address] Calcium [Mass/Vol]9.4 mg/dLNormal8.6-10.3UnACMC Healthcare System Glenbeigh Comment on above:Performed By: #### [id number] ####[facility] ([facility])[address] [place], [place] [address]Dirbtijg [Moles/Vol]108 mmol/HZbso88-279YbzevczbyqACMC Healthcare System GlenbeighComment on above:Performed By: #### [id number] ####[facility] ([facility])[address] [place], [place] [address]ZW6 [Moles/Vol]27 mmol/L Zwstgn04-32NazyitgdrnACMC Healthcare System GlenbeighComment on above:Performed By: #### [id number] ####[facility] ([facility])[address] [place] [address] Creatinine [Mass/Vol]0.89 mg/dLNormal0.60-1.20UnACMC Healthcare System GlenbeighComment on above:Performed By: #### [id number] ####[facility] ([facility])[address] [place], [place] [address]SPWCTKVPZM FILTRATION RATE ML/MIN/1.73 SQ M.KXOIKYLYB51.6 mL/min/1.73m*2Normal>60.0UnACMC Healthcare System Glenbeigh Comment on above:Result Comment: The [facility]???s estimated glomerular filtration rate (eGFR) will no longer include consideration of race in its calculation. The National Kidney Foundation???s eGFR Task Force developed new recommendations for the estimation of the glomerular filtration ra te in the [place] They recommend immediate implementation of the new equation refit without the race variable in all laboratories because the calculation does not include race. In addition to not including race in the calculation and reporting, it included diversity in its development, and has acceptable performance characteristics and potential consequences that do not disproportionately affect anyone group of individuals.Performed By: #### [id number] ####[facility] ([facility])[address] [place], [place] [address]Mazowew [Mass/Vol]97 mg/rFJenben19-757DtsueyjalrACMC Healthcare System GlenbeighComment on above:Performed By: #### [id number] ####[facility] ([facility])[address] [place], [place] [address]Baqsyssgr [Moles/Vol]4.2 mmol/LNormal3.5-5.1UnACMC Healthcare System GlenbeighComment on above:Performed By: #### [id number] ####[facility] ([facility])[address] [place], [place] [address]Tzpjzpw [Mass/Vol]6.9 g/dLNormal 6.0-8.3UnACMC Healthcare System GlenbeighComment on above:Performed By: #### [id number] ####[facility] ([facility])[address] [place], [place] [address]Dbnarf [Moles/Vol]141 mmol/COvdyzt417-143WorsurttimACMC Healthcare System GlenbeighComment on above:Performed By: #### [id number] ####[facility] ([facility])[address] [place], [place] [address]Pgaz nitrogen [Mass/Vol]13 mg/dLNormal7-25UnACMC Healthcare System GlenbeighComment on above:Performed By: #### [id number] ####[facility] ([facility])[address] [place], [place] [address]REUJ NITROGEN/CREATININE (MASS RATIO) IN SER/PLAS14.6NormalUniversity of White Medical CenterComment on above: Performed By: #### [id number] ####[facility] ([facility])[address] [place] [address]IFFVU PANELon 61-47-6833XEQW/HDL2.7 mg/dLNormalUniversOhio State East HospitalComment on above:Performed By: #### [id number] #### [facility] ([facility]) [address] [place] [address]Svnbnyvekwc [Mass/Vol]217 mg/qJCsci888-231FpqvmtgtobACMC Healthcare System GlenbeighComment on above:Performed By: #### [id number] #### [facility] ([facility]) [address] [place] [address]Cappmvguf [Mass/Vol]67 mg/uVFbbpwp92-881NfkhzubyzoACMC Healthcare System GlenbeighComment on above:Result Comment: TRIGLYCERIDE REFERENCE RANGE: 20 YEARS AND OLDER CARDIOVASCULAR RISK LESS THAN 150 mg/dL LOW RISK 150 TO 199 mg/dL BORDERLINE RISK 200 mg/dL AND GREATER HIGH RISKPerformed By: #### [id number] #### [facility] ([facility]) [address] [place] [place] [address]Rdwtxheyc [Mass/Vol]124 mg/dLNormal0-160UnACMC Healthcare System GlenbeighComment on above:Performed By: #### [id number] #### [facility] ([facility]) [address] [place] [address]Xltvloqpw [Mass/Vol]80 mg/nQOpcjup78-78PtcabtftrcACMC Healthcare System GlenbeighComment on above:Performed By: #### [id number] #### [facility] ([facility]) [address]Ad[facility] [place], [place] [address]UHC HDL CHOL. (LDL+VLDL)137NormalUniCommunity Regional Medical CenterComment on above:Performed By: #### [id number] #### [facility] ([facility]) [address]Ad[address] JUÁREZWH[place], [place] [address]TYJAK VLDL-C13 mg/dLNormal0-40UnACMC Healthcare System GlenbeighComment on above:Performed By: #### [id number] #### [facility] ([facility]) [address] [place] [address]Otomv [id number] Reyna Thomasonspringfield 1965 F Date Provider Department [place] 04/23/2024 2245-[facility] LAB RESOURCE [facility] [place] Medical C No family history on fileNormalUniversOhio State East HospitalMAGNESIUMon 49-36-6055Bolecunvi [Mass/Vol]2.1 mg/dLNormal1.9-2.7UnACMC Healthcare System GlenbeighComment on above:Performed By: #### [id number] ####[facility] ([facility])[address] [place] [address]Nvqugm Visiton 98-01-5112Dwmhff-up [id number] [facility] 1965 F Date Provider Department [place] 04/23/2024 [address]-NVKVAC, [facility] [place] HeartVAS No family history on file Level of Service:[address]798 [place] OFFICE/OUTPATIENT ESTABLISHED MOD MDM 30 MINNoal [facility] CenterTSH3 REFLEX TO FT4on 70-95-0266BOQBIOUKIBM (MIU/L) IN SER/PLAS BY DETECTION LIMIT <= 0.05 MIU/L1.63 mIU/LNormal0.34-5.60 [facility] Medical CenterComment on above:Performed By: #### [id number] ####[facility] ([facility])[address] [place] [address]36pl 04-19-2024 36[place] scanned the echo into the media for your reviewNormalUniCommunity Regional Medical Center36Pt calls for echocardiogram results.NormalUnACMC Healthcare System GlenbeighUrine Cultureon 86-65-1602Kuafvewe identified Cx Nom (U)No Growth 2 Days PERFORMED BY: [facility] [address] [place] [address] LAURENT M.D.NormalThe Atrium Health Physician GroupComment on above: Performed By: #### CUU #### [facility] [address] [place] [address] [id number] notified. Echo order faxed to Tom and mailed to ptNoACMC Healthcare System36Monitor and stress test are in the [facility]36Patient calls for her shelter monitor results and stress test results. She wore monitor for 4 days. I called Tom for the results. They will attach in media when available. Pt notifiedNoACMC Healthcare System36on [id number] notified. She would like order faxed to her PCP and mailed to her homeNoACMC Healthcare System36----- Message from Pietro Eller NP sent at 03/06/2024 12:52 PM EDT ----- Treadmill stress/ no imaging for EKG abnormal. Call patient ----- Message ----- From: Interface, Lab Results In Sent: 03/05/2024 5:53 PM EDT To: Pietro Eller NPNoACMC Healthcare System29on 03-05-2024 29Addended by: JERONIMO AYALA on: 03/05/2024 03:34 PM Modules accepted: [facility] HospitalOffice Visiton 95-54-6731Zklbbj-up [id number] ThomasonIris 1965 F Date Provider Department Center 03/05/2024 PIETRO BESS [facility] [place] HeartVAS No family history on file Level of Service:[address] [place] OFFICE/OUTPATIENT ESTABLISHED LOW MDM [facility] CenterBI MAMMOGRAM SCREENING TOMOSYNTHESIS BILATERALon 29-68-6499GV MAMMOGRAM SCREENING TOMOSYNTHESIS BILATERALThis is a summary report. The complete report [...] Screening Mamm ELECTRONICALLY SIGNED BY: Zbigniew Quiroz M.D.NormalNot AvailableComment on above: Order Comment: Us and spot compression prnUS THYROID FNA (POC) ENDO USE ONLYon 03-07-4047Bynlggmni ClinicAlanine aminotransferase [Enzymatic activity/volume] in Serum or PlasmaOrdered By: Gautam Dill on 58-50-0392EQS [Catalytic activity/Vol]16 U/L7-52[facility] Medical CenterAlbumin [Mass/volume] in Serum or Plasma by Bromocresol green (BCG) dye binding methoOrdered By: Gautam Dill on 91-33-1035Rkmffoj BCG dye [Mass/Vol]4.4 g/dL3.5-5.7FKettering Health – Soin Medical CenterAlkaline phosphatase [Enzymatic activity/volume] in Serum or PlasmaOrdered By: Gautam Dill on 81-01-1196VUJ [Catalytic activity/Vol]89 U/L 34-104[facility] Medical CenterAspartate aminotransferase [Enzymatic activity/volume] in Serum or PlasmaOrdered By: Gautam Dill on 45-81-9260DBM [Catalytic activity/Vol]15 U/I84-42MvvcgwlsiUniversity Hospitals Samaritan Medical CenterBasophils Auto (Bld) [#/Vol]Ordered By: Gautam Dill on 58-23-0713Vbpvybnlt (Bld) [#/Vol]0.0 10*3/uL0.0-0.2FKettering Health – Soin Medical CenterBasophils/100 WBC Auto (Bld) Ordered By: Gautam Dill on 37-99-2468Nrdeuimlj/100 WBC (Bld)1.0 %.[facility] Medical CenterBilirubin.total [Mass/volume] in Serum or PlasmaOrdered By: Gautam Dill on 89-86-5402Vwukasjmx [Mass/Vol]0.5 mg/dL0.3-1.0[facility] Medical CenterCalcium [Mass/volume] in Serum or PlasmaOrdered By: Gautam Dill on 32-32-8542Kbraeym [Mass/Vol]9.4 mg/dL8.6-10.3FKettering Health – Soin Medical CenterCarbon dioxide, total [Moles/volume] in Serum or PlasmaOrdered By: Gautam Dill on 85-45-9501MY9 [Moles/Vol]28.0 mmol/L21.0-31.0[facility] Medical CenterChloride [Moles/volume] in Serum or PlasmaOrdered By: Gautam Dill on 91-73-6842Zvhjstmv [Moles/Vol]107 mmol/M75-418NpmqichbuUniversity Hospitals Samaritan Medical Center Cholesterol [Mass/volume] in Serum or PlasmaOrdered By: Gautam Dill on 10-19-2023 Cholesterol [Mass/Vol]220 mg/cKPdwk884-332PncicxnlaUniversity Hospitals Samaritan Medical Center Comment on above:Chol less than 200 mg/dl low riskChol 201-239 mg/dl borderline riskChol 240 mg/dl and greater high riskCholesterol in LDL Calc [Mass/Vol] Ordered By: Gautam Dill on 13-67-3299Kizntxvbxed in LDL [Mass/Vol]130 mg/dLHigh 0-100[facility] Medical CenterComment on above:LDL ATP III CLASSIFICATIONLDL less than 100 mg/dL OptimalLDL 100-129 mg/dL Near or above szeufnvWKN319-792 mg/dL Borderline highLDL 160-189 mg/dL HighLDL greater than 189 mg/dL Very highCholesterol in VLDL Calc [Mass/Vol]Ordered By: Gautam Dill on 37-75-1909Apoqevymaqw in VLDL [Mass/Vol]17 mg/dLUniversity Hospitals Samaritan Medical CenterCreatinine [Mass/volume] in Serum or PlasmaOrdered By: Gautam Dill on 63-81-0363Lslepafvle [Mass/Vol]0.82 mg/dL0.60-1.20[facility] Medical CenterEosinophils Auto (Bld) [#/Vol]Ordered By: Gautam Dill on 10-19-2023 Eosinophils (Bld) [#/Vol]0.3 10*3/uL0.0-0.45[facility] Eosinophils/100 WBC Auto (Bld)Ordered By: Gautam Dill on 10-19-2023 Eosinophils/100 WBC (Bld)6.6 %.[facility] Medical CenterErythrocyte distribution width Auto (RBC) [Ratio]Ordered By: Gautam Dill on 10-19-2023 Erythrocyte distribution width (RBC) [Ratio]13.8 %11.9-15.3FKettering Health – Soin Medical CenterErythrocyte sedimentation rate by Photometric methodOrdered By: Gautam Dill on 18-43-7772ACK Photometric method (Bld) [Velocity]14 mm/hr0-29 [facility] Medical CenterGlobulin Calc (S) [Mass/Vol]Ordered By: Gautam Dill on 23-22-3234Ydhsbufd (S) [Mass/Vol]2.1 g/dLUniversity Hospitals Samaritan Medical CenterGlucose [Mass/volume] in Serum or PlasmaOrdered By: Gautam Dill on 80-39-0828Iqytrzq [Mass/Vol]92 mg/xP77-837OvgkdneycUniversity Hospitals Samaritan Medical Center Comment on above:ADA recommended reference rangeRandom Glucose Reference Range is dependent on time and content of last meal. Glucose of more than 200 mg/dL in a nonstressed, ambulatory subject supports the diagnosisof Diabetes Mellitus. Hematocrit Auto (Bld) [Volume fraction]Ordered By: Gautam Dill on 10-19-2023 Hematocrit (Bld) [Volume fraction]42.9 %34.0-46.4FKettering Health – Soin Medical CenterHemoglobin [Mass/volume] in BloodOrdered By: Gautam Dill on 10-19-2023 Hemoglobin (Bld) [Mass/Vol]14.5 g/dL11.8-15.4FKettering Health – [facility] Center Leukocytes [#/volume] corrected for nucleated erythrocytes in Blood by Automated counOrdered By: Gautam Dill on 66-87-3371NVV corrected for nucl RBC Auto (Bld) [#/Vol]4.4 10*3/uL3.8-11.6FKettering Health – Soin Medical CenterLymphocytes Auto (Bld) [#/Vol]Ordered By: Gautam Dill on 45-70-2492Qrfsebpxuwk (Bld) [#/Vol]1.6 10*3/uL1.00-4.8[facility] Medical CenterLymphocytes/100 WBC Auto (Bld) Ordered By: Gautam Dill on 28-96-8946Hwlukjgxlbu/100 WBC (Bld)36.0 %.[facility] HospitalH Auto (RBC) [Entitic mass]Ordered By: Gautam Dill on 76-81-0565OFN (RBC) [Entitic mass]30.2 pg24.7-34.3FKettering Health – Soin Medical CenterMCHC Auto (RBC) [Mass/Vol]Ordered By: Gautam Dill on 76-97-5549EVPX (RBC) [Mass/Vol]33.7 g/dL32.0-35.0[facility] Medical CenterMCV Auto (RBC) [Entitic vol]Ordered By: Gautam Dill on 65-34-3213OCE (RBC) [Entitic vol]89.9 fL 80-100[facility] Medical CenterMonocytes Auto (Bld) [#/Vol]Ordered By: Gautam Dill on 85-19-6527Uezdkxxik (Bld) [#/Vol]0.3 10*3/uL0.0-0.8[facility] Medical CenterMonocytes/100 WBC Auto (Bld)Ordered By: Gautam Dill on 02-30-0715Mndrepapq/100 WBC (Bld)6.7 %.[facility] Neutrophils Auto (Bld) [#/Vol]Ordered By: Gautam Dill on 87-30-5597Iidrkzkrmvv (Bld) [#/Vol]2.2 10*3/uL1.8-7.7FKettering Health – Soin Medical CenterNeutrophils/100 WBC Auto (Bld)Ordered By: Gautam Dill on 91-27-5684Ashobulrllj/100 WBC (Bld)49.7 %.[facility] Medical CenterNo Panel InformationOrdered By: Gautam Dill on 68-64-8841Yqtodlcul GFR (CKD-EPI)> 60.0 mL/MinUniversity Hospitals Samaritan Medical Center Pharmacy Creatinine Clearance (ChemN/AFKettering Health – Soin Medical CenterNucleated erythrocytes [Presence] in Blood by Automated countOrdered By: Gautam Dill on 51-35-3496Lflxqhxvg RBC Auto Ql (Bld)0.2 /100{WBC}0-0.5FKettering Health – Soin Medical CenterPlatelet mean volume Auto (Bld) [Entitic vol]Ordered By: Gautam Dill on 23-72-2066Lizdouux mean volume (Bld) [Entitic vol]9.5 fL6.3-10.7 [facility] Medical CenterPlatelets Auto (Bld) [#/Vol]Ordered By: Gautam Dill on 89-06-1888Qiyhpgnxq (Bld) [#/Vol]191 10*3/qF766-030YxgagcnqvUniversity Hospitals Samaritan Medical CenterPotassium [Moles/volume] in Serum or PlasmaOrdered By: Gautam Dill on 02-35-9029Qtdxhivkm [Moles/Vol]4.2 mmol/L3.5-5.1FKettering Health – Soin Medical CenterProtein [Mass/volume] in Serum or PlasmaOrdered By: Gautam Dill on 40-14-9623Ywyddnm [Mass/Vol]6.5 g/dL6.4-8.9[facility] Medical CenterRBC Auto (Bld) [#/Vol]Ordered By: Gautam Dill on 75-78-8904OAC (Bld) [#/Vol]4.78 10*6/uL3.60-5.00[facility] - Youngstownerum or plasma albumin/globulin mass ratioOrdered By: Gautam Dill on 06-69-6034Waascec/Globulin [Mass ratio]2.1 {ratio}[facility] Youngstownerum or plasma anion gap determinationOrdered By: Gautam Dill on 16-03-3842Icwhe gap [Moles/Vol]11.2 mmol/L6.0-15.0[facility] - Youngstownerum or plasma high density lipoprotein (HDL) cholesterol measurementOrdered By: Gautam Dill on 10-19-2023 Cholesterol in HDL [Mass/Vol]73 mg/kY53-56FpykkeeatUniversity Hospitals Samaritan Medical Center Comment on above:HDL CHOL ATP-III CLASSIFICATION Cardiovascular RiskHDL > or equal to 60 mg/dL LOWHDL < 40 mg/dL HIGHSerum or plasma total cholesterol/high density lipoprotein (HDL) cholesterol mass ratOrdered By: Gautam Dill on 19-38-8033Omzpyuanvdl.total/Cholesterol in HDL [Mass ratio]3.0 {ratio}<5.0 [facility] Youngstownodium [Moles/volume] in Serum or PlasmaOrdered By: Gatuam Dill on 20-96-2605Fnchgv [Moles/Vol]142 mmol/N187-167VcxwigcfzUniversity Hospitals Samaritan Medical CenterThyrotropin [Units/volume] in Serum or PlasmaOrdered By: Gautam Dill on 09-85-4998EBP Qn2.40 m[IU]/L0.45-5.33[facility] Medical CenterThyroxine (T4) free [Mass/volume] in Serum or PlasmaOrdered By: Gautam Dill on 87-45-3822Wner T4 [Mass/Vol]0.83 ng/dL0.61-1.12[facility] Medical CenterTriglyceride [Mass/volume] in Serum or PlasmaOrdered By: Gautam Dill on 15-34-9031Wwtzcmvmmgpc [Mass/Vol]85 mg/dL0-149[facility] Comment on above:TRIG ATP III CLASSIFICATIONTRIG less than 150 mg/dL NormalTRIG 150-199 mg/dL Borderline highTRIG 200-500 mg/dL High TRIG greater than 500 mg/dL Very highStandard traceable to the Center for Disease Conrtrol and Prevention (CDC) test method.Urea nitrogen [Mass/volume] in Serum or PlasmaOrdered By: Gautam Dill on 99-74-7062Ofjb nitrogen [Mass/Vol]16 mg/dL7[facility] Medical CenterWBC Auto (Bld) [#/Vol]Ordered By: Gautam Dill on 74-85-8723TYC (Bld) [#/Vol]4.4 10*3/uL3.8-11.6FKettering Health – Soin Medical CenterAlanine aminotransferase [Enzymatic activity/volume] in Serum or PlasmaOrdered By: Gautam Dill on 04-85-5090IBQ [Catalytic activity/Vol]20 U/L7-52[facility] Medical CenterAlbumin [Mass/volume] in Serum or Plasma by Bromocresol green (BCG) dye binding methoOrdered By: Gautam Dill on 39-56-3072Zfdgsxw BCG dye [Mass/Vol]4.4 g/dL3.5-5.7FKettering Health – Soin Medical CenterAlkaline phosphatase [Enzymatic activity/volume] in Serum or PlasmaOrdered By: Gautam Dill on 64-66-3077LOR [Catalytic activity/Vol]87 U/A59-103RnjqqwiwbUniversity Hospitals Samaritan Medical CenterAspartate aminotransferase [Enzymatic activity/volume] in Serum or Plasma Ordered By: Gautam Dill on 69-12-6836DWH [Catalytic activity/Vol]18 U/L13-39 [facility] Medical CenterBasophils Auto (Bld) [#/Vol]Ordered By: Gautam Dill on 70-68-4353Gnniwbagn (Bld) [#/Vol]0.0 10*3/uL0.0-0.2FKettering Health – Soin Medical CenterBasophils/100 WBC Auto (Bld)Ordered By: Gautam Dill on 06-23-2023 Basophils/100 WBC (Bld)0.9 %.[facility] Medical CenterBilirubin.total [Mass/volume] in Serum or PlasmaOrdered By: Gautam Dill 90-47-2015Acewlpdlw [Mass/Vol]0.5 mg/dL0.3-1.0[facility] Medical CenterCalcium [Mass/volume] in Serum or PlasmaOrdered By: Gautam Dill 01-81-7594Piptodl [Mass/Vol]9.4 mg/dL8.6-10.3FKettering Health [facility] Soin Medical CenterCarbon dioxide, total [Moles/volume] in Serum or PlasmaOrdered By: Gautam Dill on 39-64-1591BI1 [Moles/Vol]29.8 mmol/L21.0-31.0[facility] Medical CenterChloride [Moles/volume] in Serum or PlasmaOrdered By: Gautam Dill on 52-79-0113Zgrlnnaq [Moles/Vol]108 mmol/A85-880IdmnuqwohUniversity Hospitals Samaritan Medical CenterCholesterol [Mass/volume] in Serum or PlasmaOrdered By: Gautam Dill on 79-78-1108Njeespsazgp [Mass/Vol]230 mg/iT157-138FvebpucszUniversity Hospitals Samaritan Medical CenterComment on above:Chol less than 200 mg/dl low riskChol 201-239 mg/dl borderline riskChol 240 mg/dl and greater high riskCholesterol in LDL Calc [Mass/Vol]Ordered By: Gautam Dill on 99-42-2852Rkksjkhisiv in LDL [Mass/Vol]128 mg/dL0-100[facility] Medical CenterComment on above:LDL ATP III CLASSIFICATIONLDL less than 100 mg/dL OptimalLDL 100-129 mg/dL Near or above tkvpceeQPW812-745 mg/dL Borderline highLDL 160-189 mg/dL HighLDL greater than 189 mg/dL Very highCholesterol in VLDL Calc [Mass/Vol]Ordered By: Gautam Dill on 73-73-7212Efxljhalepk in VLDL [Mass/Vol]22 mg/dLUniversity Hospitals Samaritan Medical CenterCreatinine [Mass/volume] in Serum or PlasmaOrdered By: Gautam Dill on 09-27-7561Icihloteff [Mass/Vol]0.89 mg/dL0.60-1.20[facility] Medical CenterEosinophils Auto (Bld) [#/Vol] Ordered By: Gautam Dill on 41-02-2296Bwmtuhmoldu (Bld) [#/Vol]0.2 10*3/uL0.0-0.45 [facility] Medical CenterEosinophils/100 WBC Auto (Bld)Ordered By: Gautam Dill on 52-76-6192Zezfpbtqckc/100 WBC (Bld)3.5 %.[facility] Medical CenterErythrocyte distribution width Auto (RBC) [Ratio]Ordered By: Gautam Dill on 31-00-7480Rqdqloehayq distribution width (RBC) [Ratio]14.3 %11.9-15.3FKettering Health – Soin Medical CenterFerritin [Mass/volume] in Serum or PlasmaOrdered By: Gautam Dill on 74-93-2566Iqoxtazd [Mass/Vol]38.9 ng/mL11.0-306.8[facility] Medical CenterGlobulin Calc (S) [Mass/Vol]Ordered By: Gautam Dill on 91-91-1271Ypgamoko (S) [Mass/Vol]2.0 g/dLUniversity Hospitals Samaritan Medical Center Glucose [Mass/volume] in Serum or PlasmaOrdered By: Gautam Dill on 06-23-2023 Glucose [Mass/Vol]100 mg/aB18-858ZnhsovklaUniversity Hospitals Samaritan Medical CenterComment on above:ADA recommended reference rangeRandom Glucose Reference Range is dependent on time and content of last meal. Glucose of more than 200 mg/dL in a nonstressed, ambulatory subject supports the diagnosisof Diabetes Mellitus. Glucose mean value [Mass/volume] in Blood Estimated from glycated hemoglobin Ordered By: Gautam Dill on 49-70-8792Ylqzijp glucose Estimated from glycated hemoglobin (Bld) [Mass/Vol]105 mg/dLUniversity Hospitals Samaritan Medical CenterHematocrit Auto (Bld) [Volume fraction]Ordered By: Gautam Dill on 64-84-3070Kouywhhofo (Bld) [Volume fraction]44.7 %34.0-46.4FKettering Health – Soin Medical CenterHemoglobin A1c percentageOrdered By: Gautam Dill on 78-68-0227WdG6i (Bld) [Mass fraction]5.3 % 4.3-5.6FKettering Health – Soin Medical CenterComment on above:Increased risk for diabetes: 5.7 - 6.4diabetes: >6.4glycemic control for adults with diabetes: &l t;7.0Hemoglobin [Mass/volume] in BloodOrdered By: Gautam Dill on 06-23-2023 Hemoglobin (Bld) [Mass/Vol]14.8 g/dL11.8-15.4FKettering [facility] Center Iron [Mass/volume] in Serum or PlasmaOrdered By: Gautam Dill on 65-17-1497Qllh [Mass/Vol]123 ug/oN08-259JplywhwpeUniversity Hospitals Samaritan Medical CenterIron binding capacity [Mass/volume] in Serum or PlasmaOrdered By: Gautam Dill on 89-60-1513Yhns binding capacity [Mass/Vol]356 ug/eQ183-890UmdvytoooUniversity Hospitals Samaritan Medical CenterIron saturation [Mass Fraction] in Serum or PlasmaOrdered By: Gautam Dill on 51-62-3093Owqw saturation [Mass fraction]34.6 %20-50[facility] Medical CenterLeukocytes [#/volume] corrected for nucleated erythrocytes in Blood by Automated counOrdered By: Gautam Dill on 40-20-4207NQV corrected for nucl RBC Auto (Bld) [#/Vol]4.8 10*3/uL3.8-11.6FKettering Health – [facility] Center Lymphocytes Auto (Bld) [#/Vol]Ordered By: Gautam Dill on 72-16-8787Ufvqvfphrzr (Bld) [#/Vol]2.0 10*3/uL1.00-4.8[facility]itan Medical CenterLymphocytes/100 WBC Auto (Bld)Ordered By: Gautam Dill on 79-92-5920Omxhzzkupmn/100 WBC (Bld)41.3 %.[facility] HospitalH Auto (RBC) [Entitic mass]Ordered By: Gautam Dill on 69-67-4499VZK (RBC) [Entitic mass]30.0 pg24.7-34.3FPremier Health Miami Valley Hospital NorthHC Auto (RBC) [Mass/Vol]Ordered By: Gautam Dill on 43-50-0831SQUG (RBC) [Mass/Vol]33.1 g/dL32.0-35.0[facility] Medical CenterMCV Auto (RBC) [Entitic vol]Ordered By: Gautam Dill on 71-00-7978FHK (RBC) [Entitic vol]90.8 wX27-809UeytbnxlvUniversity Hospitals Samaritan Medical CenterMagnesium [Mass/volume] in Serum or PlasmaOrdered By: Gautam Dill on 86-32-0154Bhyqmrikf [Mass/Vol]2.0 mg/dL1.9-2.7FKettering Health – Soin Medical CenterMonocytes Auto (Bld) [#/Vol]Ordered By: Gautam Dill on 50-20-9155Keexesdom (Bld) [#/Vol]0.3 10*3/uL 0.0-0.8[facility] Medical CenterMonocytes/100 WBC Auto (Bld)Ordered By: Gautam Dill on 15-45-2813Qsvpdthma/100 WBC (Bld)5.9 %.[facility]aritan Medical CenterNeutrophils Auto (Bld) [#/Vol]Ordered By: Gautam Dill on 06-23-2023 Neutrophils (Bld) [#/Vol]2.3 10*3/uL1.8-7.7FKet[facility] Neutrophils/100 WBC Auto (Bld)Ordered By: Gautam Dill on 06-23-2023 Neutrophils/100 WBC (Bld)48.4 %.[facility] Medical CenterNo Panel InformationOrdered By: Gautam Dill on 36-83-1030Ufzdfbgsw GFR (CKD-EPI)> 60.0 mL/MinUniversity Hospitals Samaritan Medical CenterPharmacy Creatinine Clearance (ChemN/A [facility] Medical CenterNucleated erythrocytes [Presence] in Blood by Automated countOrdered By: Gautam Dill on 25-09-7513Dmgoyzlwa RBC Auto Ql (Bld) 0.1 /100{WBC}0-0.5FKettering Health – Soin Medical CenterPlatelet mean volume Auto (Bld) [Entitic vol]Ordered By: Gautam Dill on 18-82-5337Afrftdst mean volume (Bld) [Entitic vol]9.2 fL6.3-10.7FKettering Health – Soin Medical CenterPlatelets Auto (Bld) [#/Vol]Ordered By: Gautam Dill on 23-63-7214Npklqbcqc (Bld) [#/Vol]210 10*3/rK522-031CpcmfwwepUniversity Hospitals Samaritan Medical CenterPotassium [Moles/volume] in Serum or PlasmaOrdered By: Gautam Dill on 75-02-1804Uzgqrcxcx [Moles/Vol]4.2 mmol/L 3.5-5.1FKettering Health – Soin Medical CenterProtein [Mass/volume] in Serum or Plasma Ordered By: Gautam Dill on 74-33-7490Iegrend [Mass/Vol]6.4 g/dL6.4-8.9[facility] Samaritan Medical CenterRBC Auto (Bld) [#/Vol]Ordered By: Gautam Dill on 06-47-3763SBY (Bld) [#/Vol]4.93 10*6/uL3.60-5.00[facility] Medical CenterRandom cortisol measurementOrdered By: Gautam Dill on 54-75-3058Axlywjkh [Mass/Vol]13.8 ug/dLUniversity Hospitals Samaritan Medical CenterComment on above:[facility] international trade compliance manager and method:Qloud DXI, POLYCLONAL ANTIBODY CORTISOL ASSAY.Reference range: AM 6 - 24 ug/dl PM <10 ug/dlSerum or plasma albumin/globulin mass ratioOrdered By: Gautam Dill on 89-28-4589Pcktndn/Globulin [Mass ratio]2.2 {ratio}[facility] - Youngstownerum or plasma anion gap determinationOrdered By: Gautam Dill on 90-17-8590Jpfax gap [Moles/Vol]10.4 mmol/L6.0-15.0[facility] - [place] or plasma high density lipoprotein (HDL) cholesterol measurementOrdered By: Gautam Dill on 06-23-2023 Cholesterol in HDL [Mass/Vol]80 mg/nW04-67CjwjuossoUniversity Hospitals Samaritan Medical Center Comment on above:HDL CHOL ATP-III CLASSIFICATION Cardiovascular RiskHDL > or equal to 60 mg/dL LOWHDL < 40 mg/dL HIGHSerum or plasma total cholesterol/high density lipoprotein (HDL) cholesterol mass ratOrdered By: Gautam Dill on 27-21-7348Qmzoexpgfes.total/Cholesterol in HDL [Mass ratio]2.9 {ratio}<5.0 [facility] [place] [Moles/volume] in Serum or PlasmaOrdered By: Gautam Dill on 19-99-3089Abjllm [Moles/Vol]144 mmol/M078-311EnzxbjpgeUniversity Hospitals Samaritan Medical CenterThyrotropin [Units/volume] in Serum or PlasmaOrdered By: Gautam Dill on 23-54-6446TAZ Qn1.81 m[IU]/L0.45-5.33[facility] Medical CenterThyroxine (T4) free [Mass/volume] in Serum or PlasmaOrdered By: Gautam Dill on 68-87-7264Ltje T4 [Mass/Vol]0.82 ng/dL0.61-1.12[facility] CenterTransferrin [Mass/volume] in Serum or PlasmaOrdered By: Gautam Dill on 81-49-5887Otyqeaiuywu [Mass/Vol]254 mg/iU939-867MlpfzqlzjUniversity Hospitals Samaritan Medical CenterTriglyceride [Mass/volume] in Serum or PlasmaOrdered By: Gautam Dill on 51-19-5465Dlkxqgqkylbj [Mass/Vol]111 mg/dL0-149[facility] Comment on above:TRIG ATP III CLASSIFICATIONTRIG less than 150 mg/dL NormalTRIG 150-199 mg/dL Borderline highTRIG 200-500 mg/dL High TRIG greater than 500 mg/dL Very highStandard traceable to the Center for Disease Conrtrol and Prevention (CDC) test method.Urea nitrogen [Mass/volume] in Serum or PlasmaOrdered By: Gautam Dill on 01-78-6454Sfzu nitrogen [Mass/Vol]9 mg/dL7-25[facility] Medical CenterVitamin D+Metabolites [Mass/volume] in Serum or PlasmaOrdered By: Gautam Dill on 11-40-8464Urlztyi D+Metabolites [Mass/Vol]21.3 ng/aS21-885 [facility] CenterComment on above:VITAMIN D STATUS 25(OH)VITAMIN D RANGE (ng/mL) Deficient <20 Insufficient 20 to <61Jmzlieizml04 to 100Reference: David MF,Mason NC, Susan SPANGLER, et al. Evaluation,treatment, and prevention of vitamin D deficiency; an Endocrine Society clinical practice guideline. JCEM. 2010; 96(7):1911-30.WBC Auto (Bld) [#/Vol]Ordered By: Gautam Dill on 03-80-3245KQX (Bld) [#/Vol]4.8 10*3/uL 3.8-11.6FKettering [facility] Soin Medical CenterAlanine aminotransferase [Enzymatic activity/volume] in Serum or PlasmaOrdered By: Gautam Dill on 06-98-7654FVN [Catalytic activity/Vol]15 U/L7-52[facility] CenterAlbumin [Mass/volume] in Serum or Plasma by Bromocresol green (BCG) dye binding metho Ordered By: Gautam Dill on 93-53-1239Drkxxkq BCG dye [Mass/Vol]4.4 g/dL3.5-5.7 [facility] CenterAlkaline phosphatase [Enzymatic activity/volume] in Serum or PlasmaOrdered By: Gautam Dill on 19-43-0730ZJV [Catalytic activity/Vol]85 U/H14-465IbtaywrsiUniversity Hospitals Samaritan Medical CenterAspartate aminotransferase [Enzymatic activity/volume] in Serum or PlasmaOrdered By: Gautam Dill on 82-11-4389JXE [Catalytic activity/Vol]16 U/F53-03VtgsokxflUniversity Hospitals Samaritan Medical CenterBasophils Auto (Bld) [#/Vol]Ordered By: Gautam Dill on 12-21-2022 Basophils (Bld) [#/Vol]0.0 10*3/uL0.0-0.2FKet[facility] Basophils/100 WBC Auto (Bld)Ordered By: Gautam Dill on 73-84-9447Zggkzdhcp/100 WBC (Bld)0.7 %.[facility] Medical CenterBilirubin.total [Mass/volume] in Serum or PlasmaOrdered By: Gautam Dill on 38-37-2109Xgfcsaled [Mass/Vol]0.5 mg/dL0.3-1.0[facility] CenterCalcium [Mass/volume] in Serum or PlasmaOrdered By: Gautam Dill on 48-98-5887Ozkskea [Mass/Vol]9.5 mg/dL8.6-10.3 [facility] CenterCarbon dioxide, total [Moles/volume] in Serum or PlasmaOrdered By: Gautam Dill on 61-23-3562UR1 [Moles/Vol]28.2 mmol/L21.0-31.0 [facility] CenterChloride [Moles/volume] in Serum or Plasma Ordered By: Gautam Dill on 90-04-4916Squjlotq [Moles/Vol]106 mmol/L98-107 [facility] CenterCholesterol [Mass/volume] in Serum or Plasma Ordered By: Gautam Dill on 80-83-6269Cjwewuppmzn [Mass/Vol]209 mg/aD333-532 [facility] CenterComment on above:Chol less than 200 mg/dl low riskChol 201-239 mg/dl borderline riskChol 240 mg/dl and greater high risk Cholesterol in LDL Calc [Mass/Vol]Ordered By: Gautam Dill on 12-21-2022 Cholesterol in LDL [Mass/Vol]117 mg/dL0-100[facility] Comment on above:LDL ATP III CLASSIFICATIONLDL less than 100 mg/dL OptimalLDL 100-129 mg/dL Near or above amdulzoWEH324-100 mg/dL Borderline highLDL 160-189 mg/dL HighLDL greater than 189 mg/dL Very highCholesterol in VLDL Calc [Mass/Vol]Ordered By: Gautam Dill on 30-73-8101Irfdkqdyrzu in VLDL [Mass/Vol]16 mg/dLUniversity Hospitals Samaritan Medical CenterCreatinine [Mass/volume] in Serum or PlasmaOrdered By: Gautam Dill on 74-24-8928Dttkqyosjx [Mass/Vol]0.84 mg/dL 0.60-1.20[facility] CenterEosinophils Auto (Bld) [#/Vol]Ordered By: Gautam Dill on 36-78-7723Dsruxvxtdkw (Bld) [#/Vol]0.4 10*3/uL0.0-0.45 [facility] CenterEosinophils/100 WBC Auto (Bld)Ordered By: Gautam Dill on 36-87-2878Cfxkhxkaglj/100 WBC (Bld)8.4 %.[facility] Medical CenterErythrocyte distribution width Auto (RBC) [Ratio]Ordered By: Gautam Dill on 25-41-7187Xylomsyvyui distribution width (RBC) [Ratio]14.0 %11.9-15.3FKettering [facility] Soin Medical CenterGlobulin Calc (S) [Mass/Vol]Ordered By: Gautam Dill 63-95-0725Chkdpolh (S) [Mass/Vol]2.3 g/dLUniversity Hospitals Samaritan Medical Center Glucose [Mass/volume] in Serum or PlasmaOrdered By: Gautam Dill on 12-21-2022 Glucose [Mass/Vol]85 mg/yY49-939KsmyzkcpuUniversity Hospitals Samaritan Medical CenterComment on above:ADA recommended reference rangeRandom Glucose Reference Range is dependent on time and content of last meal. Glucose of more than 200 mg/dL in a nonstressed, ambulatory subject supports the diagnosisof Diabetes Mellitus. Hematocrit Auto (Bld) [Volume fraction]Ordered By: Gautam Dill on 12-21-2022 Hematocrit (Bld) [Volume fraction]43.7 %34.0-46.4FKet[facility] Medical CenterHemoglobin [Mass/volume] in BloodOrdered By: Gautam Dill 12-21-2022 Hemoglobin (Bld) [Mass/Vol]14.3 g/dL11.8-15.4FKet[facility] Center Leukocytes [#/volume] corrected for nucleated erythrocytes in Blood by Automated counOrdered By: Gautam Dill on 43-62-5527GWF corrected for nucl RBC Auto (Bld) [#/Vol]4.7 10*3/uL3.8-11.6FKettering [facility] So[facility] Medical CenterLymphocytes Auto (Bld) [#/Vol]Ordered By: Gautam Dill on 46-43-7968Nbyiztzensw (Bld) [#/Vol]1.3 10*3/uL1.00-4.8[facility] CenterLymphocytes/100 WBC Auto (Bld) Ordered By: Gautam Dill on 31-56-6500Iymvomakmfl/100 WBC (Bld)27.1 %.[facility] Auto (RBC) [Entitic mass]Ordered By: Gautam Dill on 79-16-8073DGD (RBC) [Entitic mass]29.6 pg24.7-34.3FKettering [facility] So[facility] Medical CenterMCHC Auto (RBC) [Mass/Vol]Ordered By: Gautam Dill on 12-87-2331ZIXF (RBC) [Mass/Vol]32.8 g/dL32.0-35.0[facility] CenterMCV Auto (RBC) [Entitic vol]Ordered By: Gautam Dill on 58-22-0096DJI (RBC) [Entitic vol]90.3 fL 80-100[facility] CenterMonocytes Auto (Bld) [#/Vol]Ordered By: Gautam Dill on 17-15-8562Gmpinzqcl (Bld) [#/Vol]0.3 10*3/uL0.0-0.8[facility] CenterMonocytes/100 WBC Auto (Bld)Ordered By: Gautam Dill on 00-70-4962Iuvigyamu/100 WBC (Bld)6.9 %.[facility] Neutrophils Auto (Bld) [#/Vol]Ordered By: Gautam Dill on 55-58-7569Zjpqkmpeqml (Bld) [#/Vol]2.7 10*3/uL1.8-7.7FK[facility] Medical CenterNeutrophils/100 WBC Auto (Bld)Ordered By: Gautam Dill on 26-26-5279Gclmbhuhkmj/100 WBC (Bld)56.9 %.[facility] CenterNo Panel InformationOrdered By: Gautam Dill on 93-49-8667Xkfhcixrg GFR (CKD-EPI)> 60.0 mL/MinUniversity Hospitals Samaritan Medical Center Pharmacy Creatinine Clearance (ChemN/AFKettering Health – Soin Medical CenterNucleated erythrocytes [Presence] in Blood by Automated countOrdered By: Gautam Dill on 30-82-4537Eraunhfny RBC Auto Ql (Bld)0.1 /100{WBC}0-0.5FKettering [facility] So[facility] Medical CenterPlatelet mean volume Auto (Bld) [Entitic vol]Ordered By: Gautam Dill on 09-66-7183Xafhdicl mean volume (Bld) [Entitic vol]9.4 fL6.3-10.7 [facility] CenterPlatelets Auto (Bld) [#/Vol]Ordered By: Gautam Dill on 56-64-5797Jchizuzey (Bld) [#/Vol]176 10*3/uX676-037ZckamitkqUniversity Hospitals Samaritan Medical CenterPotassium [Moles/volume] in Serum or PlasmaOrdered By: Gautam Dill on 94-49-8549Dzkkxaxwx [Moles/Vol]4.7 mmol/L3.5-5.1FKet[facility] Medical CenterProtein [Mass/volume] in Serum or PlasmaOrdered By: Gautam Dill on 81-36-4248Frhdezk [Mass/Vol]6.7 g/dL6.4-8.9[facility] CenterRBC Auto (Bld) [#/Vol]Ordered By: Gautam Dill on 66-42-2490VRW (Bld) [#/Vol]4.84 10*6/uL3.60-5.00[facility] Youngstownerum or plasma albumin/globulin mass ratioOrdered By: Gautam Dill on 13-38-0099Hdrikva/Globulin [Mass ratio]1.9 {ratio}[facility] Youngstownerum or plasma anion gap determinationOrdered By: Gautam Dill on 43-62-4755Tnvca gap [Moles/Vol]11.5 mmol/L6.0-15.0[facility] Youngstownerum or plasma high density lipoprotein (HDL) cholesterol measurementOrdered By: Gautam Dill on 12-21-2022 Cholesterol in HDL [Mass/Vol]76 mg/jJ76-49HgjcunfbgUniversity Hospitals Samaritan Medical Center Comment on above:HDL CHOL ATP-III CLASSIFICATION Cardiovascular RiskHDL > or equal to 60 mg/dL LOWHDL < 40 mg/dL HIGHSerum or plasma total cholesterol/high density lipoprotein (HDL) cholesterol mass ratOrdered By: Gautam Dill on 75-27-9296Whtklimbnin.total/Cholesterol in HDL [Mass ratio]2.8 {ratio}<5.0 [facility] [place]stownodium [Moles/volume] in Serum or PlasmaOrdered By: Gautam Dill on 02-45-7223Jtxwka [Moles/Vol]141 mmol/M022-177HoiprjbynUniversity Hospitals Samaritan Medical CenterThyrotropin [Units/volume] in Serum or PlasmaOrdered By: Gautam Dill on 47-55-2203ZUZ Qn1.48 m[IU]/L0.45-5.33[facility] CenterThyroxine (T4) free [Mass/volume] in Serum or PlasmaOrdered By: Gautam Dill on 13-23-9647Libu T4 [Mass/Vol]0.87 ng/dL0.61-1.12[facility] CenterTriglyceride [Mass/volume] in Serum or PlasmaOrdered By: Gautam Dill on 55-83-9601Tolipppykhtl [Mass/Vol]82 mg/dL0-149[facility] Comment on above:TRIG ATP III CLASSIFICATIONTRIG less than 150 mg/dL NormalTRIG 150-199 mg/dL Borderline highTRIG 200-500 mg/dL High TRIG greater than 500 mg/dL Very highStandard traceable to the Center for Disease Conrtrol and Prevention (CDC) test method.Urea nitrogen [Mass/volume] in Serum or PlasmaOrdered By: Gautam Dill on 35-36-1937Yioq nitrogen [Mass/Vol]13 mg/dL7-25[facility] CenterVitamin D+Metabolites [Mass/volume] in Serum or PlasmaOrdered By: Gauatm Dill on 34-69-2495Qohiavx D+Metabolites [Mass/Vol]30.1 ng/tD89-709 [facility] CenterComment on above:VITAMIN D STATUS 25(OH)VITAMIN D RANGE (ng/mL) Deficient <20 Insufficient 20 to <34Azpwixdnad31 to 100Reference: David MF,Mason DEXTER, Susan SPANGLER, et al. Evaluation,treatment, and prevention of vitamin D deficiency; an Endocrine Society clinical practice guideline. JCEM. 2010; 96(7):1911-30.WBC Auto (Bld) [#/Vol]Ordered By: Gautam Dill on 19-65-8450OAT (Bld) [#/Vol]4.7 10*3/uL 3.8-11.6FK[facility] Medical CenterBasophils Auto (Bld) [#/Vol]Ordered By: Gautam Dill on 37-14-7280Gptghhqag (Bld) [#/Vol]0.1 10*3/uL0.0-0.2FK[facility] CenterBasophils/100 WBC Auto (Bld)Ordered By: Gautam Dill on 98-22-6801Ggavcuncq/100 WBC (Bld)1.2 %.[facility] Eosinophils Auto (Bld) [#/Vol]Ordered By: Gautam Dill on 34-24-1046Dnprmcldpls (Bld) [#/Vol]0.4 10*3/uL0.0-0.45[facility] CenterEosinophils/100 WBC Auto (Bld)Ordered By: Gautam Dill on 31-37-5949Qpzkmsobokk/100 WBC (Bld)8.1 %.[facility] CenterErythrocyte distribution width Auto (RBC) [Ratio]Ordered By: Gautam Dill on 56-80-5033Amfvksnkmuw distribution width (RBC) [Ratio]14.2 %11.9-15.3FK[facility] CenterHematocrit Auto (Bld) [Volume fraction]Ordered By: Gautam Dill on 04-48-6218Xkioiqkqoo (Bld) [Volume fraction]46.1 %34.0-46.4FK[facility] CenterHemoglobin [Mass/volume] in BloodOrdered By: Gautam Dill on 39-97-2783Guzbmutnzx (Bld) [Mass/Vol]15.0 g/dL11.8-15.4FKettering [facility] So[facility] Medical CenterLeukocytes [#/volume] corrected for nucleated erythrocytes in Blood by Automated coun Ordered By: Gautam Dill on 39-19-8334MHO corrected for nucl RBC Auto (Bld) [#/Vol]5.5 10*3/uL3.8-11.6FK[facility] CenterLymphocytes Auto (Bld) [#/Vol]Ordered By: Gautam Dill on 71-29-2303Alwhheygdhv (Bld) [#/Vol]2.2 10*3/uL1.00-4.8[facility] CenterLymphocytes/100 WBC Auto (Bld) Ordered By: Gautam Dill on 29-75-4672Qvmtpzmgesk/100 WBC (Bld)39.5 %.[facility] Medical CenterMCH Auto (RBC) [Entitic mass]Ordered By: Gautam Dill on 86-32-4035QQW (RBC) [Entitic mass]29.2 pg24.7-34.3FK[facility] Medical CenterMCHC Auto (RBC) [Mass/Vol]Ordered By: Gautam Dill on 52-03-5056ZPEC (RBC) [Mass/Vol]32.5 g/dL32.0-35.0[facility] CenterMCV Auto (RBC) [Entitic vol]Ordered By: Gautam Dill on 61-50-4654OPC (RBC) [Entitic vol]89.9 fL 80-100[facility] CenterMonocytes Auto (Bld) [#/Vol]Ordered By: Gautam Dill on 54-71-9786Ruxyfevvq (Bld) [#/Vol]0.4 10*3/uL0.0-0.8[facility] CenterMonocytes/100 WBC Auto (Bld)Ordered By: Gautam Dill on 65-76-4885Picqvlcdh/100 WBC (Bld)7.0 %.[facility] Neutrophils Auto (Bld) [#/Vol]Ordered By: Gautam Dill on 03-88-5192Eawakwcfyus (Bld) [#/Vol]2.4 10*3/uL1.8-7.7FK[facility] CenterNeutrophils/100 WBC Auto (Bld)Ordered By: Gautam Dill on 95-01-7711Zwvyxifrthz/100 WBC (Bld)44.2 %.[facility] CenterNucleated erythrocytes [Presence] in Blood by Automated countOrdered By: Gautam Dill on 60-57-9756Yqohnmdqk RBC Auto Ql (Bld) 0.1 /100{WBC}0-0.5FK[facility] CenterPlatelet mean volume Auto (Bld) [Entitic vol]Ordered By: Gautam Dill on 99-99-0834Baotvcmm mean volume (Bld) [Entitic vol]8.9 fL6.3-10.7FK[facility] CenterPlatelets Auto (Bld) [#/Vol]Ordered By: Gautam Dill on 09-67-1477Qctlzvumk (Bld) [#/Vol]202 10*3/hW091-435ZwekuiiddUniversity Hospitals Samaritan Medical CenterRBC Auto (Bld) [#/Vol]Ordered By: Gautam Dill on 04-44-6734XCP (Bld) [#/Vol]5.13 10*6/uL3.60-5.00[facility] CenterWBC Auto (Bld) [#/Vol]Ordered By: Gautam Dill on 04-62-0705AQL (Bld) [#/Vol]5.5 10*3/uL3.8-11.6[facility] Basophils Auto (Bld) [#/Vol]Ordered By: Gautam Dill on 66-81-4624Aeknprdzp (Bld) [#/Vol]0.0 10*3/uL0.0-0.2FK[facility] CenterBasophils/100 WBC Auto (Bld)Ordered By: Gautam Dill on 36-84-8253Nhtbattcf/100 WBC (Bld)0.8 %.[facility] CenterEosinophils Auto (Bld) [#/Vol]Ordered By: Gautam Dill on 52-53-5748Gykogbdgaal (Bld) [#/Vol]0.2 10*3/uL0.0-0.45[facility] CenterEosinophils/100 WBC Auto (Bld)Ordered By: Gautam Dill on 03-31-2022 Eosinophils/100 WBC (Bld)4.8 %.[facility] CenterErythrocyte distribution width Auto (RBC) [Ratio]Ordered By: Gautam Dill on 03-31-2022 Erythrocyte distribution width (RBC) [Ratio]14.2 %11.9-15.3FK[facility] CenterHematocrit Auto (Bld) [Volume fraction]Ordered By: Gautam Dill on 25-59-8967Nbhmqkntst (Bld) [Volume fraction]45.0 %34.0-46.4FK[facility] CenterHemoglobin [Mass/volume] in BloodOrdered By: Gautam Dill on 98-22-7615Dheojdrafu (Bld) [Mass/Vol]14.6 g/dL11.8-15.4FK[facility] CenterLaboratory - Hematology and Cell countsOrdered By: Gautam Dill on 69-20-4238Dvqeqphko RBC/100 WBC (Bld) [Ratio]0.1 %0-0.5FK[facility] CenterLeukocytes [#/volume] in Blood by Automated countOrdered By: Gautam Dill on 77-17-0314NQS (Bld) [#/Vol]4.3 10*3/uL4.5-11.0[facility] CenterLymphocytes Auto (Bld) [#/Vol]Ordered By: Gautam Dill on 03-31-2022 Lymphocytes (Bld) [#/Vol]1.8 10*3/uL1.00-4.8[facility] Lymphocytes/100 WBC Auto (Bld)Ordered By: Gautam Dill on 03-31-2022 Lymphocytes/100 WBC (Bld)42.9 %.[facility] Auto (RBC) [Entitic mass]Ordered By: Gautam Dill on 47-47-3237IYU (RBC) [Entitic mass]29.7 pg24.7-34.3FK[facility] CenterMC Auto (RBC) [Mass/Vol]Ordered By: Gautam Dill on 09-36-3362ONNR (RBC) [Mass/Vol]32.5 g/dL32.0-35.0[facility] CenterMCV Auto (RBC) [Entitic vol]Ordered By: Gautam Dill on 89-50-3346XFP (RBC) [Entitic vol]91.5 zK33-374XszhvdqcpUniversity Hospitals Samaritan Medical Center Monocytes Auto (Bld) [#/Vol]Ordered By: Gautam Dill on 52-13-0425Cudjlwbrc (Bld) [#/Vol]0.3 10*3/uL0.0-0.8[facility] CenterMonocytes/100 WBC Auto (Bld)Ordered By: Gautam Dill on 38-31-6393Pgcvfdplo/100 WBC (Bld)6.2 %.[facility] CenterNeutrophils Auto (Bld) [#/Vol]Ordered By: Gautam Dill on 93-03-3171Ptlecrwwndx (Bld) [#/Vol]1.9 10*3/uL1.8-7.7FK[facility] CenterNeutrophils/100 WBC Auto (Bld)Ordered By: Gautam Dill on 03-31-2022 Neutrophils/100 WBC (Bld)45.3 %.[facility] CenterPlatelet mean volume Auto (Bld) [Entitic vol]Ordered By: Gautam Dill on 15-10-2294Xtaroloe mean volume (Bld) [Entitic vol]9.3 fL6.3-10.7FK[facility] Platelets Auto (Bld) [#/Vol]Ordered By: Gautam Dill on 88-66-3784Enitdbetn (Bld) [#/Vol]184 10*3/gO802-591PiumffikrUniversity Hospitals Samaritan Medical CenterRBC Auto (Bld) [#/Vol] Ordered By: Gautam Dill on 06-05-7916ZLJ (Bld) [#/Vol]4.92 10*6/uL3.60-5.00 [facility] CenterBasophils Auto (Bld) [#/Vol]Ordered By: Gautam Dill on 31-88-1887Uqpzeziod (Bld) [#/Vol]0.0 10*3/uL0.0-0.2FK[facility] CenterBasophils/100 WBC Auto (Bld)Ordered By: Gautam Dill on 02-25-2022 Basophils/100 WBC (Bld)1.0 %.[facility] CenterBody fluid albumin measurement (mass/volume)Ordered By: Gautam Dill on 97-26-3212Qnspmla (Body fld) [Mass/Vol]4.0 g/dL3.2-5.5FKet[facility] CenterCT biopsyOrdered By: Gautam Dill on 49-29-8561Aygbybqrtgx [Mass/Vol]247 mg/xS711-672LrpccfvxsUniversity Hospitals Samaritan Medical CenterCholesterol [Mass/volume] in Serum or PlasmaOrdered By: Gautam Dill on 45-33-2097Czhkpfcetix [Mass/Vol]226 mg/wI579-234RskyedebrUniversity Hospitals Samaritan Medical CenterComment on above:Chol less than 200 mg/dl low riskChol 201-239 mg/dl borderline riskChol 240 mg/dl and greater high riskCholesterol in LDL Calc [Mass/Vol]Ordered By: Gautam Dill on 08-17-4410Nweqonxdkmw in LDL [Mass/Vol]128 mg/dL0-100[facility] CenterComment on above:LDL ATP III CLASSIFICATIONLDL less than 100 mg/dL OptimalLDL 100-129 mg/dL Near or above txvypwoHAJ925-979 mg/dL Borderline highLDL 160-189 mg/dL HighLDL greater than 189 mg/dL Very highCholesterol in VLDL Calc [Mass/Vol]Ordered By: Gautam Dill on 25-09-3923Awwnqrudwtd in VLDL [Mass/Vol]17 mg/dLUniversity Hospitals Samaritan Medical CenterCreatinine and Glomerular filtration rate.predicted panel (S/P/Bld)Ordered By: Gautam Dill on 21-92-9559Ooejyanuji [Mass/Vol]0.82 mg/dL0.44-1.03[facility] CenterEosinophils Auto (Bld) [#/Vol]Ordered By: Gautam Dill on 40-36-2793Ptmgzboxpip (Bld) [#/Vol]0.3 10*3/uL0.0-0.45[facility] CenterEosinophils/100 WBC Auto (Bld)Ordered By: Gautam Dill on 02-25-2022 Eosinophils/100 WBC (Bld)6.6 %.[facility] CenterErythrocyte distribution width Auto (RBC) [Ratio]Ordered By: Gautam Dill on 02-25-2022 Erythrocyte distribution width (RBC) [Ratio]13.9 %11.9-15.3FK[facility] CenterEstimated glomerular filtration rate (GFR) non- Ordered By: Gautam Dill on 36-99-4240HQK/1.73 sq M.predicted among non-blacks MDRD (S/P/Bld) [Vol rate/Area]> 60 mL/MinUniversity Hospitals Samaritan Medical Center Ferritin [Mass/volume] in Serum or PlasmaOrdered By: Gautam Dill on 02-25-2022 Ferritin [Mass/Vol]60.3 ng/sA62-686.8[facility] Medical CenterGlobulin Calc (S) [Mass/Vol]Ordered By: Gautam Dill on 36-67-9918Adpzmyes (S) [Mass/Vol] 2.1 g/dLUniversity Hospitals Samaritan Medical CenterHematocrit Auto (Bld) [Volume fraction] Ordered By: Gautam Dill on 66-48-2908Luqtgdgjlb (Bld) [Volume fraction]44.0 % 34.0-46.4FK[facility] CenterHemoglobin [Mass/volume] in Blood Ordered By: Gautam Dill on 08-77-0323Rrclhdeafc (Bld) [Mass/Vol]14.7 g/dL 11.8-15.4FKet[facility] So[facility] Medical CenterIron [Mass/volume] in Serum or Plasma Ordered By: Gautam Dill on 53-44-6177Rqtd [Mass/Vol]94 ug/fG81-998LrhbfcklgUniversity Hospitals Samaritan Medical CenterIron binding capacity [Mass/volume] in Serum or Plasma Ordered By: Gautam Dill on 41-30-5706Gfiw binding capacity [Mass/Vol]346 ug/dL 255-450[facility] Medical CenterIron saturation [Mass Fraction] in Serum or PlasmaOrdered By: Gautam Dill on 86-74-3720Qhhw saturation [Mass fraction]27.0 %20-50[facility] CenterLaboratory - Hematology and Cell counts Ordered By: Gautam Dill on 56-41-5566Ccaroosam RBC/100 WBC (Bld) [Ratio]0.1 % 0-0.5FKettering [facility] So[facility] Medical CenterLeukocytes [#/volume] in Blood by Automated countOrdered By: Gautam iDll on 28-88-3335FUC (Bld) [#/Vol]4.2 10*3/uL 4.5-11.0[facility] Medical CenterLymphocytes Auto (Bld) [#/Vol]Ordered By: Gautam Dill on 79-47-0267Fffgzhhhyci (Bld) [#/Vol]1.9 10*3/uL1.00-4.8 [facility] CenterLymphocytes/100 WBC Auto (Bld)Ordered By: Gautam Dill on 54-27-6734Xwkublrvbut/100 WBC (Bld)45.7 %.[facility] Auto (RBC) [Entitic mass]Ordered By: Gautam Dill on 56-90-9266EUV (RBC) [Entitic mass]30.4 pg24.7-34.3FKettering Health – Soin Medical CenterMCHC Auto (RBC) [Mass/Vol]Ordered By: Gautam Dill on 73-24-9447ODNK (RBC) [Mass/Vol]33.4 g/dL 32.0-35.0[facility] CenterMCV Auto (RBC) [Entitic vol]Ordered By: Gautam Dill on 01-36-0961UXF (RBC) [Entitic vol]91.2 dY33-953CwlqucmrbUniversity Hospitals Samaritan Medical CenterMonocytes Auto (Bld) [#/Vol]Ordered By: Gautam Dill on 19-08-6069Gkouykplf (Bld) [#/Vol]0.3 10*3/uL0.0-0.8[facility] CenterMonocytes/100 WBC Auto (Bld)Ordered By: Gautam Dill on 02-25-2022 Monocytes/100 WBC (Bld)7.5 %.[facility] CenterNeutrophils Auto (Bld) [#/Vol]Ordered By: Gautam Dill on 64-58-0473Qohdgyneuzd (Bld) [#/Vol]1.7 10*3/uL1.8-7.7FKettering Health – Soin Medical CenterNeutrophils/100 WBC Auto (Bld) Ordered By: Gautam Dill on 70-11-7886Twkyiekuryg/100 WBC (Bld)39.2 %.[facility] CenterNo Panel InformationOrdered By: Gautam Dill on 02-25-2022 25-Hydroxy Vitamin D Total25.2 ng/yG14-204CytbtdclcUniversity Hospitals Samaritan Medical Center Comment on above:VITAMIN D STATUS 25(OH)VITAMIN D RANGE (ng/mL) Deficient <20 Insufficient 20 to <42Ftzhevvlzu92 to 100Reference: David MF,Mason DEXTER, Susan SPANGLER, et al. Evaluation,treatment, and prevention of vitamin D deficiency; an [employer]ocrine Society clinical practice guideline. JCEM. 2010; 96 (7):1911-30.Estimated GFR ()> 60 mL/MinUniversity Hospitals Samaritan Medical CenterComment on above:GFR estimated reference range: According to KDOQI guidelines, <60 ml/min/1.73m2 is sufficient todiagnose a patient with chronic kidney disease.Pharmacy Creatinine Clearance (ChemN/[facility] HospitalPlatelet mean volume Auto (Bld) [Entitic vol]Ordered By: Gautam Dill on 26-67-2264Feziimlt mean volume (Bld) [Entitic vol]9.5 fL6.3-10.7FKettering Health – Soin Medical CenterPlatelets Auto (Bld) [#/Vol]Ordered By: Gautam Dill on 34-96-2660Kvguiiffu (Bld) [#/Vol]198 10*3/mP628-494BkrdftheqUniversity Hospitals Samaritan Medical CenterProtein [Mass/volume] in Serum or PlasmaOrdered By: Gautam Dill on 07-00-0075Ldryxdh [Mass/Vol]6.1 g/dL6.1-7.9[facility] Samaritan Medical CenterRBC Auto (Bld) [#/Vol]Ordered By: Gautam Dill on 81-14-4620LHT (Bld) [#/Vol]4.82 10*6/uL3.60-5.00[facility] Youngstownerum or plasma alanine aminotransferase measurement without P-5'-P (enzymatic activiOrdered By: Gautam Dill on 04-41-0412XOU No additional P-5'-P [Catalytic activity/Vol]18 U/L10-60 [facility] Youngstownerum or plasma albumin/globulin mass ratio Ordered By: Gautam Dill on 66-38-4960Wqkwlay/Globulin [Mass ratio]1.9 {ratio} [facility] Youngstownerum or plasma alkaline phosphatase measurement (enzymatic activity/volume)Ordered By: Gautam Dill on 49-43-2500CQP [Catalytic activity/Vol]79 U/J25-41QspckqctvSelect Medical Specialty Hospital - Youngstownerum or plasma anion gap determinationOrdered By: Gautam Dill on 83-76-7038Byfup gap [Moles/Vol]12.4 mmol/L6.0-15.0[facility] Youngstownerum or plasma aspartate aminotransferase measurement (enzymatic activity/volume)Ordered By: Gautam Dill on 15-86-4268RSS [Catalytic activity/Vol]17 U/J30-67LaxexcknuSelect Medical Specialty Hospital - Youngstownerum or plasma calcium measurement (mass/volume)Ordered By: Gautam Dill on 09-38-7187Jvhtcjt [Mass/Vol]9.4 mg/dL8.2-10.2FCleveland Clinic South Pointe Hospitalerum or plasma chloride measurement (moles/volume) Ordered By: Gautam Dill on 78-06-4170Uouurlxu [Moles/Vol]104 mmol/L95-114 [facility] Youngstownerum or plasma glucose measurement (mass/volume)Ordered By: Gautam Dill on 07-83-0043Clttshj [Mass/Vol]93 mg/dL 70-100[facility] Samaritan Medical CenterComment on above:ADA recommended reference rangeRandom Glucose Reference Range is dependent on time and content of last meal. Glucose of more than 200 mg/dL in a nonstressed, ambulatory subject supports the diagnosisof Diabetes Mellitus.Serum or plasma high density lipoprotein (HDL) cholesterol measurementOrdered By: Gautam Dill on 02-25-2022 Cholesterol in HDL [Mass/Vol]81 mg/cN68-68OxfqetzcpUniversity Hospitals Samaritan Medical Center Comment on above:HDL CHOL ATP-III CLASSIFICATION Cardiovascular RiskHDL > or equal to 60 mg/dL LOWHDL < 40 mg/dL HIGHSerum or plasma potassium measurement (moles/volume)Ordered By: Gautam Dill on 24-26-8373Jeolkupzp [Moles/Vol]4.1 mmol/L3.5-5.1FCleveland Clinic South Pointe Hospitalerum or plasma sodium measurement (moles/volume)Ordered By: Gautam Dill on 45-58-2235Lpddoi [Moles/Vol]139 mmol/L 136-146[facility] Youngstownerum or plasma total bilirubin measurement (mass/volume)Ordered By: Gautam Dill on 46-06-3453Dcnjavtcl [Mass/Vol]0.5 mg/dL0.3-1.2FCleveland Clinic South Pointe Hospitalerum or plasma total carbon dioxide measurement (moles/volume)Ordered By: Gautam Dill on 02-25-2022 CO2 [Moles/Vol]26.7 mmol/L22.0-30.0[facility] Youngstownerum or plasma total cholesterol/high density lipoprotein (HDL) cholesterol mass rat Ordered By: Gautam Dill on 28-97-6259Chsvgkbldly.total/Cholesterol in HDL [Mass ratio]2.8 {ratio}<5.0[facility] Youngstownerum or plasma urea nitrogen measurement (mass/volume)Ordered By: Gautam Dill on 99-34-2362Vhbi nitrogen [Mass/Vol]12 mg/dL9-23[facility] Sam[facility]itan Medical CenterTS DL <= 0.005 mIU/L QnOrdered By: Gautam Dill on 18-95-7272CKU Qn3.10 m[IU]/L0.45-5.33[facility] Samaritan Medical CenterThyroxine (T4) free [Mass/volume] in Serum or Plasma Ordered By: Gautam Dill on 66-98-7718Iheq T4 [Mass/Vol]0.83 ng/dL0.61-1.12 [facility] Samaritan Medical CenterTriglyceride [Mass/volume] in Serum or Plasma Ordered By: Gautam Dill on 48-73-5050Qecrzvjqroim [Mass/Vol]86 mg/iO78-231 [facility]aritan Medical CenterComment on above:TRIG ATP III CLASSIFICATIONTRIG less than 150 mg/dL NormalTRIG 150-199 mg/dL Borderline highTRIG 200-500 mg/dL High TRIG greater than 500 mg/dL Very highStandard traceable to the Center for Disease Conrtrol and Prevention (CDC) test method.VC COMP CONSULTATIONon 51-42-9138CC COMP CONSULTATIONPatient: IRIS THOMASON Exam Date: 11/05/2021 : 1965 Gender:F Ordering : DR YUNIEL CASTELLANOS M.D. Admission #: [id number] Family : GAUTAM DILL Order #: [id number] CLICK HERE TO VIEW EXAM RADIOLOGY REPORT [...] by: Yuniel Castellanos MD on 11/05/2021 at 10:09[facility] CenterVC VENOUS REFLUX ROJELIO [facility] 37-14-7418PE VENOUS REFLUX ROJELIO TPatient: RIIS THOMASON Exam Date: 11/05/2021 : 1965 Gender:F Ordering : DR YUNIEL CASTELLANOS M.D. Admission #: [id number] Family : Order #: [id number] CLICK HERE TO VIEW EXAM RADIOLOGY REPORT [...] chronic thrombus visualized Compressibility: Normal Flow: Normal Reiki Practitioner: Mid/med calf 2.9cm, 0s reflux; prox/ant calf [...] by: Yuniel Castellanos MD on 11/05/2021 at 09:39[facility] COVID + FLU Quick Testingon 34-86-3966VMYJC + FLU Quick TestingNegativeSanta Cruz RepReg[facility] Other 447-4789Vfg-Heankqumppnst for Medical Treatmenton 05-12-2021 Pre-Authorization for Medical Treatment [id number]:127NoAdena Regional Medical CenterAmbulatory Clinical Summaryon 21-41-9968Ivjetdlcud Clinical Summary {d7-20-23-f9-07-kj-1w-90-62-50-dk-0q-92-63-c1-c7}CD:[id number] Medical Specialty Hospital - Columbus SouthPatient Educationon 10-68-0995Qffihsp EducationUrology Kidney Stones Kidney stones are rock-like masses [...] the ribs (flank pain). Pain usually spreads (radiates)to the groin. ? Needing to pee often [...] these instructions at home: Medicines ? Take phzr-ldm-rcabzcd and prescription medicines only as told by [...] 10/11/2008 Document Revised: 09/11/2019 Document Reviewed: 09/11/2019 [employer] Patient Education ? 2019 [place].[facility] Urology Office/Clinic Noteon 27-40-5264Aubfrce Office/Clinic NoteChief Complaint Pt is here for recurrent UTI [...] remember how frequently prior to that, but doesn'tthink it was more than once a year. [...] how many times are true UTIs and requireabx vs how many times are not. UA [...] herbal supplements may help - cranberry, probiotics, andd-mannose. 4) proper hygiene habits (wipe front to back every time, avoid baths & hot tubs, avoid any scented [employer] products, urinate after sexual activity, etc) post-menopause x 1.5 yrs. pt already has rx for estrogen cream per [employer] however she hasn't been using it due to risk of cervical cancer. has appt with [employer] next week. I encouraged her to discuss with them bc I think the estrogen cream will be very helpful in UTI prevention. +hx kidney stones with spontaneous passage 8-10 yrs ago. no recent imaging. will check KUB and renal US. return for cysto/possible UD. Ordered: Office Visit Level 4 New 32005 Urnls Dip Stick Auto w/o Microscopy POC 28117 US Renal XR Abdomen 1 View 2. OAB (overactive bladder) (N32.81: Overactive bladder) bothersome frequency, urgency, and variable nocturia with mixed incontinence. has not tried any treatment in past. will address once we get through the UTI work-up. f/u w me 1 mo after cysto. need tocheck PVR prior to starting any meds. Ordered: Office Visit Level 4 New 92178 3. Mixed incontinence urge and stress (N39.46: Mixed incontinence) see #2 Ordered: Office Visit Level 4 New 08549 4. Kidney stones (N20.0: Calculus of kidney) no recent flank pain or gross hematuria. will image due to recurrent UTIs. see #1. Ordered: Office Visit Level 4 New 66180 US Renal XR Abdomen 1 View Follow-up With When Contact Information cysto/UD with DLS, f/u with me 1 mo later Additional Instructions: Patient Education Kidney Stones, Jzye-bz-Epxr Problem List/Past Medical History Ongoing Anxiety Autonomic [...] LORazepam (Unknown) Levaquin (Diarrhea) (more content not included)...[facility] SouthComment on above: Result Comment: Electronically Signed By: SWAPNA OSBORNE PA-C\.abeba\Date and Time Signed: 04/20/2110:26 EST Vital Signs Date TimeVital SignValuePerforming PbyrpwhecYgxphora77-54-0386 10:06-0400Body mass index (BMI) [Ratio]31.64 kg/b1Mxpmnpql Rinkes DO Work Phone: [facility] HospitalLwtkvzftfj80-76-9615 10:06-0400Body .63 kgKathldimitry Cordova DO Work Phone: [facility] HospitalExfqjpyerk52-68-2090 10:06-0400Diastolic blood mm[Hg]Keiko Cordova DO Work Phone: [facility] HospitalUfgwaomblb55-94-4183 10:06-0400Systolic blood pybqnahw125 mm[Hg]Kekio Cordova DO Work Phone: [facility] HospitalQrteoabdgr66-36-2259 14:26-0400Body mass index (BMI) [Ratio]32.21 kg/j8Rnllxhadiixe Moreno DO Work Phone: [facility]06-02-2025 14:26-0400Body temperature 98.01 [degF]Amanda Moreno DO Work Phone: [facility]06-02-2025 14:26-0400Body uxnhrm27 kg Pradixie Moreno DO Work Phone: [phone]06-02-2025 14:26-0400Diastolic blood nltevaeu06 mm[Hg]Pradhab Moreno DO Work Phone: [phone]06-02-2025 14:26-0400Heart rate70 /min Pradixie Moreno DO Work Phone: [phone]06-02-2025 14:26-0400Respiratory rate 18 /minPradhab Moreno DO Work Phone: [phone]06-02-2025 14:26-4577XaQ8% (BldA) [Mass fraction]98 %Pradhab Sanchezaran DO Work Phone: [phone]06-02-2025 14:26-0400Systolic blood pbhnicji890 mm[Hg]Amanda Sanchezaran DO Work Phone: [phone]06-02-2025 14:00-0400Body obyurj464.2 cmPulm A110 Work Phone: [facility]06-02-2025 14:00-0400Body mass index (BMI) [Ratio]32.47 kg/m2Pulm A110 Work Phone: [facility]06-02-2025 14:00-0400Body cboeub73.7 kgPulm A110 Work Phone: [facility]05-30-2025 12:31-0400Diastolic blood mm[Hg]Wing Farrell SURFACE GRINDER TENDER.[employer] Work Phone: [facility]05-30-2025 12:31-0400Heart rate62 /min Wing Farrell SURFACE GRINDER TENDER.[employer]OST Work Phone: [facility]05-30-2025 12:31-0400Systolic blood jpeitkjc270 mm[Hg]Wing Farrell SURFACE GRINDER TENDER.[employer] SH[employer] HOST Work Phone: [facility]05-30-2025 12:28-0400Body mass index (BMI) [Ratio]30.84 kg/j5Hqvctnikki Farrell SURFACE GRINDER TENDER.G[employer] SH[employer]OST Work Phone: [facility]05-30-2025 12:28-0400Body kg Wing Farrell SURFACE GRINDER TENDER.[employer] SH[employer]OST Work Phone: [facility]05-30-2025 12:28-1352TxK0% (BldA) [Mass fraction]99 %Wing Farrell SURFACE GRINDER TENDER.G[employer] SHOW HOST Work Phone: [facility]05-06-2025 09:05-0400Body mass index (BMI) [Ratio]30.23 kg/t3Ajcevhxx Rinkes DO Work Phone: noSSM [facility] CenterVeauturvnh88-03-5412 09:05-0400Body xodupz29.54 kgKathleen Rinkes DO Work Phone: noSSM [facility] CenterVtfranwaut17-20-1625 09:05-0400Diastolic blood oqyftvfp14 mm[Hg]Keiko Rinkes DO Work Phone: noSS[facility] CenterQfqyzrsxla91-81-5276 09:05-0400Systolic blood wxydyljj124 mm[Hg]Keikodimitry Cordova DO Work Phone: [facility] HospitalCcbmnoddeh99-15-0620 10:35-0400Body diozoz481.45 cmGautam Dill DO Work Phone: [facility]03-20-2025 10:35-0400 Body mass index (BMI) [Ratio]30.3 kg/v1XvtjjGautam Dill DO Work Phone: [facility]03-20-2025 10:35-0400 Body ccbvqi15.2 kgGautam Dill DO Work Phone: [facility]02-26-2025 15:28-0500 Body szvayw644.9 cmLorenzo Lora MD Work Phone: [facility]02-26-2025 15:28-0500Body mass index (BMI) [Ratio]31.07 kg/m2Lorenzo Lora MD Work Phone: [facility]02-26-2025 15:28-0500Body gyxpsz63.63 kgLorenzo Lora MD Work Phone: [facility]02-26-2025 15:28-0500Diastolic blood szhbzizd12 mm[Hg]Lorenzo Lora MD Work Phone: [facility]02-26-2025 15:28-0500Heart rate65 /min Lorenzo Lora MD Work Phone: [facility]02-26-2025 15:28-5810ZwS1% (BldA) [Mass fraction]98 %Lorenzo Lora MD Work Phone: [facility]02-26-2025 15:28-0500Systolic blood rrrgsoku705 mm[Hg]Lorenzo Lora MD Work Phone: [facility]2025 11:15-0500Body nquvap797.2 cmKathleen Tasha DO Work Phone: [facility] HospitalRctpmjwppe97-80-2739 11:15-0500Body mass index (BMI) [Ratio]31.48 kg/m7Jjhsgohs Rinkes DO Work Phone: [facility] HospitalBsiyhzpzke19-86-7451 11:15-0500Body ipatya85.17 kgKathleen Rinkes DO Work Phone: [facility] HospitalDaavrfvenp32-00-9426 11:15-0500Diastolic blood rckzkeut95 mm[Hg]Keiko Rinkes DO Work Phone: [facility] HospitalPpbifvnfzm88-08-0645 11:15-0500Systolic blood jindsdbo954 mm[Hg]Keiko Rinkes DO Work Phone: [facility] HospitalGtljbpowqa87-12-3828 11:24-0400Body afkcib936.18 cmDO Gautam Dill Work Phone: [facility]10-02-2024 11:24-0400 Body mass index (BMI) [Ratio]31.8 kg/m2DO Gautam Dill Work Phone: [facility]10-02-2024 11:24-0400 Body ofbqlh05.07 kgDO Gautam Dill Work Phone: [facility]09-05-2024 10:22-0400 Body mass index (BMI) [Ratio]31.96 kg/e7Rbxfkrvw Rinkes DO Work Phone: [facility] HospitalMgzduyaksx38-21-6281 10:22-0400Body zhndyp98.17 kgKathleen Rinkes DO Work Phone: [facility] HospitalPlkbdvxmxb56-49-6245 10:22-0400Diastolic blood temkgnzw78 mm[Hg]Keiko Rinkes DO Work Phone: [facility] HospitalXydkedikmh15-53-2772 10:22-0400Systolic blood yfdwkqrg764 mm[Hg]Keiko Rinkes DO Work Phone: [facility] HospitalTogivaygtc92-98-5647 13:36-0400Body mass index (BMI) [Ratio]32.08 kg/v5Hdooybe Visci DO Work Phone: [facility] HospitalTsuhkwrpbh74-39-7919 13:36-0400Body ryafav84.54 kgRichmay Visci DO Work Phone: [facility] HospitalSgxqurikoh91-13-3144 13:36-0400Diastolic blood exmlfyjp30 mm[Hg]Delores Visci DO Work Phone: [facility] HospitalDuvejwcyyr49-66-4054 13:36-0400Systolic blood pnwrrnmo210 mm[Hg]Delores Visci DO Work Phone: [facility] HospitalXuidhxwpoy47-75-6614 15:24-0400Diastolic blood jjxosvff12 mm[Hg]Lainey Becerril MD, PhD Work Phone: [facility]07-10-2024 15:24-0400Heart rate62 /min Lainey Becerril MD, PhD Work Phone: [facility]07-10-2024 15:24-0400Systolic blood mm[Hg]Lainey Becerril MD, PhD Work Phone: [facility]06-12-2024 08:43-0400Body dtedki927.45 cmDO Gautam Dill Work Phone: [facility]06-12-2024 08:43-0400 Body mass index (BMI) [Ratio]30.5 kg/m2DO Gautam Dill Work Phone: [facility]06-12-2024 08:43-0400 Body iochss20.81 kgDO Gautam Dill Work Phone: [facility]06-12-2024 08:43-0400 Diastolic blood faoidmeh46 mm[Hg]DO Gautam Dill Work Phone: [facility]06-12-2024 08:43-0400 Heart rate70 /Мария Dill Work Phone: [facility]06-12-2024 08:43-0400 Respiratory rate16 /Мария Rogerss Work Phone: [facility]06-12-2024 08:43-0400 SaO2% (BldA) [Mass fraction]97 %DO Gautam Dill Work Phone: [facility]06-12-2024 08:43-0400 Systolic blood ucnpnjdt362 mm[Hg]DO Gautam Dill Work Phone: [facility]02-12-2024 12:30-0500 Body .45 cmGautam Dill Other [employer] Other 02-12-2024 12:30-0500Body mass index (BMI) [Ratio] 30.86 kg/y5RqwskGautam Dill Other [employer] Other 02-12-2024 12:30-0500Body oyxhpa96.72 kgGautam Dill Other [employer] Other 02-12-2024 12:30-0500Diastolic blood gwjhemsm93 mm[Hg] Gautam Dill Other [employer] Other 02-12-2024 12:30-0500Respiratory rate16 /minGautam Dill Other [employer] Other 02-12-2024 12:30-8952NlH9% (BldA) [Mass fraction]95 % Gautam Dill Other [employer] Other 02-12-2024 12:30-0500Systolic blood owuyseqs507 mm[Hg] Gautam Dill Other [employer] Other 11-14-2023 08:05-0500Body .5 cmMatthew Hall MD Work Phone: [facility]11-14-2023 08:05-0500Body .81 kgMatthew Hall MD Work Phone: [facility]11-14-2023 08:05-0500Diastolic blood vrzehiez54 mm[Hg]Matthew Hall MD Work Phone: [facility]11-14-2023 08:05-0500Heart rate56 /min Matthew Hall MD Work Phone: [facility]11-14-2023 08:05-0500Systolic blood kdmhlhir587 mm[Hg]Matthew Hall MD Work Phone: [facility]11-28-2022 10:30-0500Body .45 cmGautam Dill Other [employer] Other 12-15-2021 08:30-0500Body codbow492.45 cmGautam Dill Other [employer] Other 12-15-2021 08:30-0500Body mass index (BMI) [Ratio] 30.49 kg/g6LtejjGautam Dill Other [employer] Other 12-15-2021 08:30-0500Body lrgocx33.63 kgGautam Dill Other [employer] Other 12-15-2021 08:30-0500Diastolic blood cbudkbjh50 mm[Hg] Gautam Dill Other [employer] Other 12-15-2021 08:30-0500Respiratory rate17 /minGautam Dill Other [employer] Other 12-15-2021 08:30-3911PuB8% (BldA) [Mass fraction]99 % Gautam Dill Other [place] [employer] Other 12-15-2021 08:30-0500Systolic blood adcbkpac406 mm[Hg] Gautam Dill Other [facility] Other Encounters Encounter DateEncounter TypeCare ProviderFacilityStart: 03-06-2025 End: 57-52-1557vtcxbmbsbvOAEYBL M ZIMELBETAFacility:[facility] Hospitaltart: 03-04-2025 End: 41-56-1832Avqnfer encounter procedureGautam Dennis DO-Lab [place] Work Phone: Start: 03-04-2025 End: 13-87-6909ubophvhawdIfxle Eldacee DO Work Phone: -Lab [place]Start: 01-22-2025 End: 73-39-6047Plgcmn flowsheetKathleen E Rinkes DO Work Phone: [facility] [place] OBGYNStart: 01-22-2025 End: 15-60-3198Pjhugv flowsheetKathleen E Rinkes DO Work Phone: [facility] [place] OBGYNStart: 01-22-2025 End: 17-33-8745erherqihpaKODBRFCQ E RINKESNot AvailableStart: 01-22-2025 End: 11-55-4504Eiwsgrz encounter statusKathleen E Rinkes DO Work Phone: NO[facility] HealthcareStart: 01-22-2025 End: 14-56-4724Idkytbmv preventive med est patient 40-64yrsKathleen E Rinkes DO Work Phone: [facility] [place] OBGYNComment on above:Encounter for gynecological examination without abnormal finding; Screening for malignant neoplasm of cervix; Encounter for screening mammogram for breast cancer; DysuriaStart: 12-26-2024 End: 60-61-6636yscojfalblPYRMEO M ZIADAFacility:[facility] Hospitaltart: 12-26-2024 End: 32-80-2124Jmixnoo encounter procedureArrhythmia Monitoring Lab Work Phone: cardiologyComment on above:Palpitations (Primary Dx); SOB (shortness of breath)Start: 12-26-2024 End: 29-06-6891wmdxtiyryfVSSMGC M ZIADAFacility:[facility] Hospitaltart: 10-08-2024 End: 15-31-6099mpjinefpjjJCNGSYK AQUILESOHIO STATE UNIV[facility] MED[facility] CENTERFacility:[facility] Start: 10-08-2024 End: 84-69-9526Irpepx consultation new/estab patient 60 minPrassm [facility] Mariosuzan DO Work Phone: Pulmonary MedicineComment on above:Palpitations; Pulmonary hypertension (HCC); Postural orthostatic tachycardia syndrome (POTS); Tremor; Essential (primary) hypertension; Thyroid noduleStart: 10-08-2024 End: 88-23-9693txwirzkikaAYPAH RIVERAPulmonary MedicineComment on above: SpirometryStart: 10-08-2024 End: 31-16-6587Tbbhtrk encounter procedurePulm Fct Lab 1 - A110 Work Phone: pulmonary MedicineStart: 10-05-2024 End: 86-68-7233Qslygl-up encounterMolly T Loy GASTELUMGAME SHOW HOST Work Phone: pulm [place] FHCStart: 10-05-2024 End: 12-54-9411Fxkexvc encounter procedureSunni Pycraft RT(R)Radiology Ct Scan Start: 10-05-2024 End: 63-64-9991Lhiici outpatient visit 40 minutesMolly T Loy GASTELUMGAME SHOW HOST Work Phone: pulm [place] FHCComment on above:Lung nodules (Primary Dx)Start: 10-05-2024 End: 07-58-3422harxvymuexVhtkw Pycraft RT(R)Radiology Ct ScanComment on above: Radiology CTStart: 10-05-2024 End: 22-56-2113Zhoixnicex hospital visit by physicianCt [facility] Ct ScanComment on above:Lung nodules [R91.8]Start: 10-04-2024 End: 35-35-7861Lhtgweqxg encounterPradhab Martinzeldasuzan DO Work Phone: pulmonary MedicineComment on above:Patient Question Start: 10-03-2024 End: 30-93-6893Wboemdkmveao consultation with patientLorenzo Lora MD Work Phone: CardiologyStart: 10-03-2024 End: 90-07-5264pyezuqrbqwDinw Taimeh MD Work Phone: CardiologyComment on above:Chest pain, unspecified type (Primary Dx); Palpitations; Pulmonary hypertension (HCC); SOB (shortness of breath); Elevated blood pressure readingStart: 09-14-2024 End: 51-61-3680Qtpqvmtt Result EncounterKathleen E Rinkes DO Work Phone: noms External Department UnsolicitedStart: 09-14-2024 End: 18-26-0522Panmvreh Result EncounterKathleen E Rinkes DO Work Phone: n[facility] External Department UnsolicitedStart: 09-14-2024 End: 41-57-4365Yifioym encounter procedureBryan Kuns DO Work Phone: [facility] [place] Work Phone: Start: 09-14-2024 End: 44-03-8473dkiubqvwriEvynf Kuns DO Work Phone: [facility] Work Phone: Start: 09-11-2024 End: 97-74-9488Dbkruxw encounter procedureKathleen E Rinkes DO Work Phone: [facility] OBComment on above:Thickened endometrium; DysuriaStart: 09-11-2024 End: 07-59-8374htlidlrffaSUZHVRYC E RINKESNot AvailableStart: 08-16-2024 End: 50-77-7418Pivlnunum encounterMollrichelle Farrell APRN.[employer] Work Phone: Pulmonary MedicineStart: 08-16-2024 End: 51-21-1023Fgivqihnhqgf consultation with patientMonikki Farrell APRN.[employer]OST Work Phone: Pulmonary MedicineStart: 08-16-2024 End: 81-16-2805xwnycumnjlEtoww T Freeman APRN.[employer] SH[employer] HOST Work Phone: Pulmonary MedicineComment on above:Lung nodule seen on imaging study (Primary Dx); SOBOE (shortness of breath on exertion); Lung nodulesStart: 08-09-2024 End: 69-26-0341wsbklchstpWxrv B Devante RNNURSE ON CALLComment on above:Results Start: 07-31-2024 End: 36-19-5989Gjapwdk evaluation of patient and reportNurse Card [facility] Tiffany Work Phone: CardiologyComment on above:Palpitations; Pulmonary hypertension (HCC)Start: 07-31-2024 End: 21-29-8990Wtorgik encounter procedureLisa Theo Tuttle RT(R)RadiologyStart: 07-31-2024 End: 27-44-2734fzcxhkcnasAnmh D Tuttle RT(R)RadiologyComment on above:Radiology XRStart: 07-31-2024 End: 47-65-1816Oiaogcnamw hospital visit by physicianXr [facility] LorainRadiology Comment on above:Primary pulmonary hypertension (HCC) [I27.0]Start: 07-26-2024 End: 71-38-4620euompxqfuaNagss Kuns DO Work Phone: [facility] Work Phone: Start: 07-26-2024 End: 71-38-0977Egbmqsq encounter procedureBryan Kuns DO Work Phone: [facility] Work Phone: Start: 07-18-2024 End: 86-10-6359opwrsekqqyVhif Taimeh MD Work Phone: CardiologyComment on above:A question for Dr. Lora Start: 07-16-2024 End: 88-78-6701Kmqnhrtwk encounterLorenzo Lora MD Work Phone: CardiologyStart: 07-16-2024 End: 02-36-7321Ffhmacr encounter procedureGautam Dill DO Work Phone: [facility] [place] Work Phone: Start: 07-16-2024 End: 90-75-5604fundlflhuvJvxhi Kuns DO Work Phone: [facility] Work Phone: Start: 07-09-2024 End: 28-30-6490Feovukjgh encounterPatricio Madrid MD Work Phone: Respiratory InstituteComment on above:Advice Only Start: 81-94-6187Oie-patient / Non-visitGautam Dill DO Work Phone: [facility] Work Phone: Start: 07-06-2024 End: 39-66-7452Fibrvjvgt encounterLorenzo Lora MD Work Phone: CardiologyComment on above:Results (Patient is calling regarding her abnormal lab results. Her potassium is 5.8. And some other labs were off and causing her concern. )Start: 84-71-4203Vum-patient / Non-visitGautam Dill DO Work Phone: [facility] Work Phone: Start: 07-05-2024 End: 33-43-6957Ornyzqzfy Martin Lora MD Work Phone: CardiologyComment on above:Counseling (Patient went to yesterday to get holter monitor. They were not able to get insuranceapproval in time.)Start: 57-80-8470Noa-patient / Non-visitGautam Dill DO Work Phone: [facility] Work Phone: Start: 07-04-2024 End: 28-56-4632Xrnxbh Temo Buck APRNRUBY Work Phone: Pulmonary MedicineComment on above:Primary pulmonary hypertension (HCC) (Primary Dx)Palpitations (Primary Dx); Pulmonary hypertension (HCC); SOB (shortness of breath); Elevated blood pressure readingStart: 06-15-2024 End: 26-22-0942Pixpvztxs encounterLorenzo Lora MD Work Phone: CardiologyComment on above:ResultsStart: 06-13-2024 End: 41-04-3815Jwsksk outpatient visit 15 minutesKathleen E Rinkes DO Work Phone: noms SWS OBComment on above:Thickened endometrium Start: 06-13-2024 End: 14-33-1913rflujnszmoZYVMYKZD E RINKESNot AvailableStart: 05-11-2024 End: 19-06-3421Apyvxa Ravi Lora MD Work Phone: CardiologyComment on above:Pulmonary hypertension, unspecified (HCC) (Primary Dx)Start: 04-27-2024 End: 74-51-8023Giwlwzi encounter procedureGautam Dill DO Work Phone: [facility] Family [facility] Work Phone: Start: 75-51-8957vqwltfxhrhHCFRQFVOhioHealth O'Bleness Hospitaltart: 40-02-4604myslgskqmfRGDOKEJOhioHealth O'Bleness Hospitaltart: 04-04-2024 End: 57-53-5702fihddpauscJkhuu KunsFacility:[facility] Start: 04-03-2024 End: 97-56-9911Ldnakpjxz encounterKathleen E Rinkes DO Work Phone: noms [facility] OBStart: 03-30-2024 End: 41-07-6780pkzbxdlhzyTSQZGHSK E RINKESNot AvailableStart: 03-05-2024 End: 46-20-0196rhvbenjylyKTCDTEQ [facility] Start: 02-13-2024 End: 83-08-1685zflpsqtvtjAW Gautam Dill Work Phone: [facility] Work Phone: Start: 02-13-2024 End: 15-45-1862Fviirrb encounter procedureDO Gautam Dill Work Phone: [facility] Work Phone: Start: 02-09-2024 End: 32-97-0091qmlfpbofygCPCIHJU A VISCINot AvailableStart: 02-08-2024 End: 70-82-2714bebtchurlqSN Bryan Kuns Work Phone: [facility] Work Phone: Start: 02-08-2024 End: 83-43-5965Dvhlqnh encounter procedureDO Gautam Dill Work Phone: [facility] Gastroenterology Work Phone: Start: 01-12-2024 End: 07-47-0345Oabusl flowsheetKathleen E Rinkes DO Work Phone: noMS [facility] OBStart: 01-12-2024 End: 33-58-3991Qdplxn flowsheetKathleen E Rinkes DO Work Phone: noMS [facility] OBStart: 01-12-2024 End: 81-78-6990Pcatbkhgg encounterKathleen E Rinkes DO Work Phone: noMS [facility] OBStart: 01-12-2024 End: 61-68-4079Wcbuefw encounter statusKathleen E Rinkes DO Work Phone: [facility] Work Phone: start: 01-12-2024 End: 75-18-3539Eshonfer preventive med est patient 40-64yrsKathleen E Tasha DO Work Phone: noms [facility] OBComment on above:Encounter for gynecological examination without abnormal finding (Primary Dx); Screening for malignant neoplasm of cervix; Encounter for screening mammogram for breast cancer; Thickened endometrium; Vaginal drynessStart: 01-03-2024 End: 57-72-9476Nojuws flowsheetRichard A Visci DO Work Phone: noms [facility] OBStart: 01-03-2024 End: 62-49-7382Bymsrp flowsheetRichard A Visci DO Work Phone: noms [facility] OBStart: 01-03-2024 End: 05-97-3269Ettbms outpatient visit 15 minutesRichard A Visci DO Work Phone: noms [facility] OBComment on above:Breast pain in female; Encounter for screening mammogram for malignant neoplasm of breastStart: 31-70-9192autizlfcgfAsxxMatthew Hall MD Work Phone: EndocrinologyComment on above:ResultsStart: 11-30-2023 E-mail encounter from caregiverMatthew Hall MD Work Phone: EndocrinologyStart: 74-44-6637Bmcdjbvqz encounterMatthew Hall MD Work Phone: EndocrinologyComment on above:Patient QuestionStart: 11-24-2023 End: 11-49-7220JcmzezKzjsTasha Hall MD Work Phone: EndocrinologyStart: 11-24-2023 End: 96-79-3662Lugxxrm encounter Grace Dill Work Phone: [facility] [place] Work Phone: Start: 11-16-2023 End: 02-15-2710Emfpeqk encounter Juan Antonio Becerril MD, PhD Work Phone: EndocrinologyComment on above:Multiple thyroid nodules (Primary Dx)Start: 61-03-9601Ywlpngxnr encounterLainey Becerril MD, PhD Work Phone: Endocrinology & Metabolic InstituteComment on above: Patient QuestionStart: 10-19-2023 End: 38-66-9002oifidxpptoPT Bryan Kuns Work Phone: [facility] Work Phone: Start: 10-19-2023 End: 86-29-7238Lcafgce encounter procedureDO Gautam Dill Work Phone: [facility] [place] Work Phone: Start: 10-19-2023 End: 37-65-4532aitmzsiwotFY Bryan Kuns Work Phone: [facility] Work Phone: Start: 10-19-2023 End: 88-85-2415Uzjlqmi encounter procedureDO Gautam Dill Work Phone: [facility] [place] Work Phone: Start: 80-11-8379Avxmdwqdd encounterHeather Blanton MD Work Phone: GynecologyComment on above:QuestionStart: 08-08-2023 End: 56-79-3761hibjzozwmkNzshbLilian Blanton MD Work Phone: GynecologyComment on above:Thickened endometrium (Primary Dx)Start: 08-08-2023 End: 28-02-5218Alkcqgoqtrst consultation with Migue Blanton MD Work Phone: [facility] MAINStart: 91-33-9558Nhorxfwiy encounterMatthew Hall MD Work Phone: EndocrinologyComment on above:fax #Start: 06-23-2023 End: 40-39-5714chcqorafxoBI Gautam Kuns Work Phone: [facility] Work Phone: Start: 06-23-2023 End: 90-05-2323Quiifap encounter procedureDO Gautam Dill Work Phone: [facility] [place] Work Phone: Start: 06-20-2023 End: 70-24-5241ycnjrzwgmpIpgvx Kuns Other [employer] Other Start: 86-56-6390Xsvmpc outpatient visit 25 minutes Gautam [facility] [place]Start: 06-16-2023 End: 57-14-0448hiojifhepyPlnut Eldas Other [employer] Other Start: 23-03-4855Skhwetwjb encounterBryeduarda DillFPG [facility] [place]Start: 05-12-2023 End: 24-41-8389xwnfoghcrmEdxyo Kuns Other [employer] Other Start: 05-33-3049Anrvgpsjk encounterBryeduarda DillFPG [facility] [place]Start: 04-11-2023 End: 54-00-4554gpufbqmzjxZkung Kuns Other [employer] Other Start: 58-45-6004Rsheqmsot encounterBryeduarda DillFPG [facility] [place]Start: 03-22-2023 End: 24-71-7767Gsqwby outpatient new 45 minutesMatthew Hall MD Work Phone: EndocrinologyComment on above:Multiple thyroid nodules (Primary Dx)Start: 01-18-2023 End: 74-06-9874hqezddqrbzNutzb Kuns Other [employer] Other Start: 40-76-7083Atgrcdfnw encounterBryeduarda Whitten [facility] CastaliaStart: 27-45-4873Afnpjjoaa encounterLainey Becerril MD, PhD Work Phone: [phone] InstituteComment on above:Patient QuestionStart: 12-22-2022 End: 96-16-7460wykpinipawBqmtk Kuns Other [employer] Other Start: 73-27-1240Teosbybfm encounterBryeduarda RockyG [facility] [place]Start: 12-21-2022 End: 92-07-1331imsowwbegnPS Bryan Kuns Work Phone: [facility] Work Phone: Start: 12-21-2022 End: 55-55-2375Bdvppot encounter procedureDO Gautam Dill Work Phone: [facility] [place] Work Phone: Start: 12-20-2022 End: 82-79-2497dakzcuqbwoSzsqj Kuns Other [employer] Other Start: 92-01-3304Yhuphasby encounterBryeduarda RogersSvetlanaG Family [facility] [place]Start: 08-19-2022 End: 28-26-8263ixahgjpvimAciet Kuns Other noDust[employer] Other Start: 05-39-2476Ajwooraii encounterBryeduarda AniyahFPG [facility] [place]aliaStart: 81-15-4768pdtwwnddveDW BRYAN KUNSFacility:H1 Start: 08-04-2022 End: 73-02-3354jglzsssroyRpsju Kuns Other [employer] Other Start: 79-55-8985Cyrtgtama encounterBryeduarda KunsFPG [facility] [place]Start: 07-05-2022 End: 86-11-8254vdaegbuwcnShkcc Kuns Other [employer] Other Start: 23-20-2265Gllecjavu encounterBryeduarda HidalgoG Family [facility] [place]Start: 07-02-2022 End: 25-02-3055wvhjnudbiaLP Gautam Dill Work Phone: [facility] Work Phone: Start: 07-02-2022 End: 96-23-2026Hleyixl encounter procedureDO Gautam Dill Work Phone: [facility] [place] Work Phone: Start: 05-18-2022 End: 07-52-6937cmwmfqozwfCbfmq Kuns Other [employer] Other Start: 02-37-0860Vpoyvmgsg encounterBryeduarda HidalgoG [facility] [place]Start: 04-07-2022 End: 16-49-8571ocnbhgzxqlQzcus Kuns Other [employer] Other Start: 96-86-2091Ozpjwswox encounterBryeduarda HidalgoG [facility] [place]Start: 04-05-2022 End: 88-25-4341fificahokoCzqhq Kuns Other [employer] Other Start: 98-19-7962Fojwre outpatient visit 15 minutes Gautam HidalgoG Family [facility] [place]aliaStart: 30-95-9804Tqwxpoizl encounterBryeduarda HidalgoG [facility] [place]Start: 03-31-2022 End: 02-53-4000qqwrtyhsfhIN Bryan Kuns Work Phone: [facility] Work Phone: Start: 03-31-2022 End: 81-20-8931Eubyzsz encounter procedureDO Gautam Dill Work Phone: [facility]-Lab [place]Start: 03-23-2022 End: 17-24-0496spmuwzuxpdYH Gautam Dill Work Phone: [facility] Work Phone: Start: 03-23-2022 End: 98-20-8014Nucaeat encounter procedureDO Gautam Dill Work Phone: [facility] Start: 03-01-2022 End: 64-43-9034dhwiammttnQujui Kuns Other [employer] Other Start: 97-70-1492Yebakhtbb encounterBryeduarda RogerssFPG [facility] [place]Start: 88-35-6726Jpohypzac encounterBryeduarda RogerssFPG [facility] [place]Start: 02-25-2022 End: 11-69-7613mmkobyzjsxGR Gautam Dill Work Phone: [employer] Other Start: 02-25-2022 End: 31-02-9101Rpfkpzv encounter procedureDO Gautam Dill Work Phone: [facility]-Lab [place]Start: 02-16-2022 End: 81-51-9215qsgmxasslmDoxpo Kuns Other [employer] Other Start: 91-88-8876Bghifrqnq encounterBryeduarda RogersceeFPG [facility] [place]Start: 01-29-2022 End: 08-70-5452pdozakirvbUgtrx Kuns Other [employer]Son[employer] Other Start: 89-78-3325Cethrlrlw encounterBryeduarda RogerssFPG [facility] [place]Start: 11-13-2021 End: 48-15-9087iydwsbvpnsSLURUZG D KATKOFacility:Q3Ptthu: 11-05-2021 End: 61-07-4669ucphabmbwvDF DAVID V WESTFacility:U6Xyfke: 10-27-2021 End: 98-58-8135gakbyhfcenQqcjd Kuns Other [employer]Son[employer] Other Start: 77-02-8557Itugqbffc encounterGautam DillMihaela Family [facility] CastaliaStart: 08-05-2021 End: 89-74-2435jtdtfawybyZrjvm Kuns Other [employer]Son[employer] Other Start: 58-62-4550Amqrmhmsd encounterDarrioneduarda Whitten Family [facility] CastaliaStart: 05-20-2021 End: 61-97-5277kvnkyhvdqyTiacx Kuns Other [employer] Other Start: 92-70-2065Ifvunjw evaluation of patient and reportGautam DillMihaela Family [facility] CastaliaStart: 04-22-2021 End: 01-61-9401emsifplhxeQvast Kuns Other [employer] Other Start: 06-00-7783Ucfnbv outpatient visit 25 minutes Gautameduarda DillMihaela Family [facility] CastaliaStart: 15-94-1527HhtiyxqwhvTSFNN KUNS Facility:1532Start: 16-89-8691LhcewgmofuZcvxlkim:9507 Procedures DateProcedureProcedure DetailPerforming ClinicianStart: 52-73-2986Tkglr dip stick/tablet rgnt non-auto w/o micrscpKathleen E Rinkes DO Work Phone: start: 09-82-6191Wgwfdrtgb stress testingReyna Buck SURFACE GRINDER TENDER.AUTOMATIC CAR WASH ATTENDANT Work Phone: Start: 92-06-8694Au thorax w/o contrast materialMollrichelle Farrell SURFACE GRINDER TENDER.GAME SHOW HOST Work Phone: Start: 73-30-9107Pcwwii-up visitFollow Mattie LORA Start: 18-62-5168Zkklwdm bacterial quanttative colony count urineKathleen E Rinkes DO Work Phone: start: 90-18-0438OJEDRPTXQVM BIOPSYKathleen E Rinkes DO Work Phone: start: 71-83-4197Nvvumpwzzt exam chest 2 viewsMindy Heber SURFACE GRINDER TENDER.AUTOMATIC CAR WASH ATTENDANT Work Phone: Start: 47-90-5874Biylr 1995 panel - Serum or Plasma Lorenzo Lora MD Work Phone: Start: 95-73-8741Ozday 1995 panel - Serum or Plasma Reyna Buck SURFACE GRINDER TENDER.AUTOMATIC CAR WASH ATTENDANT Work Phone: Start: 95-14-5697ID of abdomen and pelvis without contrastDO Gautam Dill Work Phone: Start: 23-51-8662VY scan of gallbladderDO Gautam Dill Work Phone: Start: 53-75-4103Jk soft tissue head & neck real time imge Tiffanie Becerril MD, PhD Work Phone: Start: 30-90-9114Cdvmjahqz mammography of bilateral breastsDO Gautam Dill Work Phone: CounselingGautam Dill Other Plan of Treatment DateCare ActivityDetailAuthorStart: 48-12-9664Asxlr microalbumin profile DTaP,Tdap,Td Vaccine (2 - Td or Tdap)[facility]: 01-72-4296Wgtjj panelLipid ScreeningC[facility] Clinic Fairview Hospitaltart: 44-40-3918Jzvsg panelLipid Screening [facility]: 04-62-0406Eaumtpyz ScreeningDiabetes ScreeningCleveland Clinic Fairview Hospitaltart: 22-31-8962Dhbwntul ScreeningDiabetes ScreeningRiverview Health Institute Start: 93-39-4168Vshheglcd for malignant neoplasm of breastMammogram Screening [facility]tart: 01-22-2025 End: 60-91-5946Ifjborh encounter welbmsfnd43/16/2025 9:30 AM EDT Office Visit [facility] [address] [place] [phone] NasimaKeiko gonzalez, DO [address] [place] [address] [facility] SWS OBStart: 22-20-7112Pbocmjbdf vaccinationCleveland Clinic Fairview Hospitaltart: 01-02-2025 End: 26-26-1631cgogbynhej57/27/2025 8:00 AM EDT [facility] Cardiology [address] [id number] Lorenzo Lora MD [address] [place] [address] Dx:pulmonary hypertension, second opinionCardiologyComment on above:Dx:pulmonary hypertension, second opinionStart: 11-06-2024 End: 53-06-5316YA Thyroid glandUS THYROID/PARATHYROID Radiology Routine Multiple thyroid nodules Expected: 11/06/2024, Expires: 12/23/2024[facility] Work Phone: Comment on above:Expected: 11/06/2024, Expires: 12/23/2024Start: 10-29-2024 End: 48-32-9471Egymeni encounter procedureRadiology Ct ScanComment on above:lung nodulesStart: 10-08-2024 End: 58-75-1827jfyxoribvlNtxmjjdlx MedicineComment on above:Primary pulmonary hypertension (HCC) [I27.0]JH// Primary pulmonary hypertension (HCC) [I27.0] Start: 10-08-2024 End: 05-18-5618Iedhjxt encounter procedureMolecular ImagingComment on above:NM LUNG VQNEW PPH w/ PK + CXR,pfts,echo,VQ- st ms 9-06-44Bljvnpncnnyz; Pulmonary hypertension (HCC)Start: 10-05-2024 End: 94-02-8857Ngdshbc encounter procedureRadiology Ct ScanComment on above:CT CHEST WO CONTRASTlung nodulesStart: 10-03-2024 End: 22-99-4025gfkslsciuu35/28/2025 9:00 AM EDT [facility] Cardiology [address] [place] [address] Lorenzo Lora MD [address] [place] [address] Dx:pulmonary hypertension, second opinionCardiologyComment on above:Dx:pulmonary hypertension, second opinionStart: 92-05-9316Hpywydpw identified in Urine by [employer] Work Phone: start: 55-37-9208FtlnoPike Community Hospitaltart: 07-31-2024 End: 42-77-2838Uhdlsym evaluation of patient and nkylaf9507/31/2024 3:00 PM EDT Nurse Visit Cardiology [address] [place] [address] Tiffany, Nurse Card [facility] [address] [place] [address] Palpitations [R00.2]CardiologyComment on above: Palpitations [R00.2]Start: 07-31-2024 End: 99-35-5377Bkhkacu encounter procedureCardiologyComment on above:Dx: Palpitations [R00.2]Primary pulmonary hypertension (HCC) [I27.0]Start: 07-27-2024 End: 34-17-8476Qpwajkm encounter iowgkyxvl18/21/2025 2:40 PM EDT Office Visit Cardiology [address] [place] [address] Tiffany, Environmental Monitoring Technician [facility] [address] [place] [address] Dx: Palpitations [R00.2]CardiologyComment on above:Dx: Palpitations [R00.2]Start: 07-19-2024 End: 02-25-3775Zihsgza encounter ogqgmndfy67/13/2025 4:15 PM EDT Procedure Visit [facility] [address] [place] [address] Keiko Cordova, DO [address] [place] [address] [facility] SWS OBStart: 07-04-2024 End: 88-83-4304nauqzvheqx92/26/2025 1:15 PM EST Results Only Cardiology [address] [place] [address] pulmonary hypertension, second opinionCardiologyComment on above:pulmonary hypertension, second opinionStart: 07-04-2024 End: 18-86-2387Eostbzo encounter procedureCardiologyComment on above:pulmonary hypertension, second opinionStart: 01-01-2025Medicare Advantage Annual Wellness VisitMedicare Advantage Annual Wellness VisitCleveland Clinic Fairview Hospitaltart: 04-26-2024 End: 98-64-9026Nigibio encounter epvriczbt56/19/2024 9:45 AM EST Office Visit [facility] OB [address] [place] [address] Keiko Cordova, DO [address] [place] [address] [facility] OBStart: 03-27-2024 End: 82-74-6464Uuivyyj encounter hccikvmoq09/19/2024 11:15 AM EST Office Visit [facility] [address] [place] [address] Keiko Cordova, DO [address] [place] [address] [facility] SWS OBStart: 03-15-2024 End: 04-53-5288Bhrmufqadtij / ancillary services rcnzynpqgs05/07/2024 9:30 AM EST Ancillary Procedure [facility] [address] [place] [id number] [facility] OBStart: 02-09-2024 End: 58-87-7208Owpmpvevrlwg / ancillary services xihlannasb34/03/2024 8:00 AM EDT Ancillary Procedure [facility] [place] [address] [place] [address] EDZG IMAGING SANDUSKYStart: 01-12-2024 End: 75-34-1969Gkjekjs encounter procedureNOMS [facility] OBComment on above:Encounter for gynecological examination without abnormal finding; Screening for malignant neoplasm of cervix; Encounter for screening mammogram for breast cancerStart: 99-58-8828Xzfqe-19 Vaccine ()Covid-19 Vaccine ()[facility]: 10-72-6999Ouodmrofg vaccinationC[facility] Clinic Fairview Hospitaltart: 01-03-2024 End: 54-69-8043PBF Breast - bilateral screeningBilateral screening mammogram with tomosynthesis Imaging Routine Encounter for screening mammogram for malignant neoplasm of breast Expected: 01/03/2024, Expires: 03/04/2025[facility] Work Phone: comment on above:Expected: 01/03/2024, Expires: 03/04/2025Start: 01-03-2024 End: 11-95-8487Kqozlij encounter qjjqmjefr14/27/2024 1:00 PM EDT Office Visit [facility] [address] [place] [address] Delores Cantor DO [address] [place] [address] [facility]NOS[facility] OBComment on above:ArrivedStart: 11-16-2023 End: 29-24-5160Uhmhlpm encounter dffjwdnuv60/10/2024 3:40 PM EDT Office Visit Endocrinology [address] [place] [address] Lainey Becerril MD, PhD [address] [place], [place] [id number] Thyroid diagnosis.EndocrinologyComment on above:Thyroid diagnosis.Start: 17-04-8386Qphmaib referralMercy Health St. [facility] Work Phone: Start: 78-35-2781Zeeqaetgdqasr metabolic 2000 panel - Serum or PlasmaSelect Medical Specialty Hospital - Youngstowntart: 26-39-0985ZtzbsdaadSelect Medical Specialty Hospital - Youngstowntart: 08-08-2023 End: 75-82-6542Iyaoh metabolic 1999 panel - Serum or PlasmaBASIC METABOLIC PNL Lab Routine Thickened endometrium Expected: 08/08/2023, Expires: 08/07/2024 [facility] Work Phone: Comment on above:Expected: 08/08/2023, Expires: 08/07/2024Start: 08-08-2023 End: 55-58-2164FFF W Auto Differential panel - BloodCBC + DIFF Lab Routine Thickened endometrium Expected: 08/08/2023, Expires: 08/07/2024[facility] Work Phone: Comment on above:Expected: 08/08/2023, Expires: 08/07/2024Start: 03-40-9845Eycchokhyg Health ScreeningBehavioral Health ScreeningCleveland Clinic Fairview Hospitaltart: 75-02-3670Ztypgzumhj AssessmentDepression AssessmentCleveland Clinic Fairview Hospitaltart: 20-44-5502KKG TestingHPV TestingCleveland Clinic Fairview Hospitaltart: 03-56-2646Lrfnxtria for malignant neoplasm of cervixHPV Testing [facility]: 96-56-9044Qcopo-19 Vaccine ( season)Covid-19 Vaccine ( season)[facility]: 13-15-9542Infeurctp vaccinationInfluenza Vaccine (#1)[facility]: 92-94-1690Fgxtaflska AssessmentDepression AssessmentC[facility] Clinic Fairview Hospitaltart: 59-03-7050Unncmlehv for malignant neoplasm of breastMammogram ScreeningCleveland Clinic Fairview Hospitaltart: 04-17-2021 Diabetes ScreeningDiabetes ScreeningCleveland Clinic Fairview Hospitaltart: 32-65-7230Qnf Testing Pap TestingCleveland Clinic Fairview Hospitaltart: 29-96-5810Vpaewigav for malignant neoplasm of cervixCleveland Clinic Fairview Hospitaltart: 39-64-0420Cbfptzuhutsl Vaccine: 50+ (1 of 1 - PCV) Pneumococcal Vaccine: 50+ (1 of 1 - PCV)[facility]: 2015 Shingrix Vaccine (1 of 2)Shingrix Vaccine (1 of 2)[facility]: 16-74-0757SqiknlwxyulWtcldsnoo ScreeningCleveland Clinic Fairview Hospitaltart: 05-09-2014 Screening for malignant neoplasm of breastMammogram ScreeningRiverview Health Institute Start: 14-42-6176Crzanaodg (FIT-DNA)Cologuard (FIT-DNA)[facility]tart: 52-10-5649AsxifplpfnbHupdzuandfuQknodchfg ClinicStart: 67-11-9349Ewrjmpmqyz Cancer ScreeningColorectal Cancer ScreeningCleveland Clinic Fairview Hospitaltart: 71-87-6189SJ COLONOGRAPHYCT COLONOGRAPHYCleveland Clinic Fairview Hospitaltart: 73-81-8817Bfdis Occult Blood Fecal Occult BloodCleveland Clinic Fairview Hospitaltart: 46-56-4188Zxdhs 1996 panel - Serum or PlasmaLipid ScreeningC[facility] Clinic Fairview Hospitaltart: 12-56-0643Yspbn panelLipid Screening [facility]: 90-33-6120Xwjykyico for malignant neoplasm of colon [facility]: 63-58-6553YWXZAOPCTTVGZQTPMDITMKBQUESrptsvykk Clinic Start: 39-44-2819Oedoshbab B Vaccine (1 of 3 - 19+ 3-dose series)Hepatitis B Vaccine (1 of 3 - 19+ 3-dose series)[facility]: 19-05-5367Fbkqr microalbumin profileDTaP,Tdap,Td Vaccine (1 - Tdap)[facility]: 35-95-5064Droeixs ScreeningAnxiety ScreeningCleveland Clinic Fairview Hospitaltart: 1983 Depression ScreeningDepression ScreeningC[facility] Clinic Fairview Hospitaltart: 1983 Hepatitis C ScreeningHepatitis C ScreeningCleveland Clinic Fairview Hospitaltart: 1983 Hepatitis C screeningHepatitis C ScreeningCleveland Clinic Fairview Hospitaltart: 68-78-1700KXR ScreeningHIV ScreeningCleveland Clinic Fairview Hospitaltart: 93-24-7052XGJ screeningHIV ScreeningCleveland Clinic Fairview Hospitaltart: 98-10-1744Ebffa-19 Vaccine (#1)Covid-19 Vaccine (#1)[facility]: 27-79-7773Tklvqiajg B Vaccine (1 of 3 - 3-dose series)Hepatitis B Vaccine (1 of 3 - 3-dose series)[facility] Albumin/Globulin ratioUniversity Hospitals Samaritan Medical CenterAnion gap measurement [facility] Samaritan Medical CenterBacteria identified in Urine by CultureUrine culture Microbiology Routine Dysuria Ordered: 09/11/2024NOUT HealthcareComment on above:Ordered: 09/11/2024asophils [#/volume] in Blood by Automated count [facility] CenterBasophils/100 leukocytes in Blood by Automated [facility] AvonCalculated LDL cholesterol levelUniversity Hospitals Samaritan Medical CenterCholesterol.total/Cholesterol in HDL [Mass Ratio] in Serum or PlasmaUniversity Hospitals Samaritan Medical Center End: 52-63-3757ON Chest WO contrastCT CHEST WO IVCON Radiology Routine Lung nodules 1 Occurrences starting 08/16/2024 until 09/15/2025[facility] Work Phone: Comment on above:1 Occurrences starting 08/16/2024 until 09/15/2025YTOLOGY NON-GYNCYTOLOGY NON-BUZZSAW OPERATOR Lab Routine Multiple thyroid nodules 11/16/2023 4:06 PM EDTCUniversity Hospitals [facility] Work Phone: dbt Breast - bilateral screeningBilateral screening mammogram with tomosynthesis Imaging Routine Encounter for screening mammogram f or breast cancer Ordered: 01/22/2025NOUT HealthcareComment on above:Ordered: 01/22/2025 End: 60-02-3309SIJ COMPLETEECG COMPLETE ECG Routine Pulmonary hypertension, unspecified (HCC) 1 Occurrences starting 05/11/2024 until 05/11/2025[facility] Work Phone: Comment on above:1 Occurrences starting 05/11/2024 until 05/11/2025Eosinophils/100 leukocytes in Blood by Automated [facility], AvonErythrocyte distribution width [Ratio] by Automated count [facility] CenterErythrocytes [#/volume] in [facility] HospitalFluoroscopy of esophagusUniversity Hospitals Samar[facility] Center Globulin [Mass/volume] in SerumUniversity Hospitals Samaritan Medical CenterGlucose measurement estimated from glycated hemoglobinUniversity Hospitals Samaritan Medical Center Hematocrit [Volume Fraction] of [facility] HospitalHemoglobin [Mass/volume] in [facility] HospitalHemoglobin A1c/Hemoglobin.total in [facility] HospitalHOLTER MONITOR 48 HOURHOLTER MONITOR 48 HOUR ECG Routine Palpitations Pulmonary hypertension (HCC) 07/31/2024 2:18 PM EDTCUniversity Hospitals [facility] Work Phone: IGP, RFX APTIMA HPV ASCUIGP, RFX APTIMA HPV ASCU Lab Routine Screening for malignant neoplasm of cervix Ordered: 01/22/2025[facility] Work Phone: comment on above:Ordered: 01/22/2025Leukocytes [#/volume] corrected for nucleated erythrocytes in Blood by Automated [facility] HospitalLeukocytes [#/volume] in BloodUniversity Hospitals Samaritan Medical CenterLUNG DIFFUSION CAPACITY (DLCO)LUNG DIFFUSION CAPACITY (DLCO) PFT Routine Primary pulmonary hypertension (HCC) Ordered: 07/04/2024 [facility] on above:Ordered: 07/04/2024LUNG VOLUMESLUNG VOLUMES PFT Routine Primary pulmonary hypertension (HCC) Ordered: 07/04/2024[facility] ClinicComment on above:Ordered: 07/04/2024Lymphocytes [#/volume] in Blood by Automated [facility], AvonLymphocytes/100 leukocytes in Blood by Automated [facility], AvonMCH [Entitic mass] by Automated [facility], AvonMCHC [Mass/volume] by Automated [facility] AvonMCV [Entitic volume] by Automated [facility] CenterMonocytes [#/volume] in Blood by Automated [facility] AvonMonocytes/100 leukocytes in Blood by Automated [facility] AvonNeutrophils [#/volume] in Blood by Automated [facility] AvonNeutrophils/100 leukocytes in Blood by Automated [facility] End: 32-23-1309NO Lung Ventilation and PerfusionNM LUNG VENT / PERF VQ Radiology Routine Primary pulmonary hypertension (HCC) 1 Occurrences starting 07/04/2024 until 08/03/2025leveland ClinicComment on above:1 Occurrences starting 07/04/2024 until 08/03/2025Nucleated erythrocytes [Presence] in Blood by Automated [facility], AvonPathology ReportPathology Report Pathology and Cytology Routine Thickened endometrium Ordered: 09/11/2024[facility] Work Phone: comment on above:Ordered: 09/11/2024Patient referral [facility] Work Phone: Platelet mean volume [Entitic volume] in Blood by Automated countUniversity Hospitals Samaritan Medical CenterPlatelets [#/volume] in Blood [facility] YoungstownENDOUT TEST MISCELLANEOUS LABCORPSENDOUT TEST MISCELLANEOUS LABCORP Lab Routine Screening for malignant neoplasm of cervix Ordered: 01/12/2024[facility] Work Phone: comment on above:Ordered: 01/12/2024SIX MINUTE WALKSIX MINUTE WALK PFT Routine Primary pulmonary hypertension (HCC) Ordered: 07/04/2024[facility] HospitalComment [facility] above:Ordered: 07/04/2024SPIROMETRY WITH DILATOR IF OBSTRUCTEDSPIROMETRY WITH DILATOR IF OBSTRUCTED PFT Routine Primary pulmonary hypertension (HCC) Ordered: 07/04/2024[facility] Work Phone: Comment on above:Ordered: 07/04/2024Thyroglobulin Ab [Units/volume] in Serum or PlasmaUniversity Hospitals Samaritan Medical Center Thyroperoxidase Ab [Units/volume] in Serum or PlasmaUniversity Hospitals Samaritan Medical Center End: 55-08-7016Gn soft tissue head & neck real time imge docmUS THYROID/PARATHYROID Radiology Routine Multiple thyroid nodules 1 Occurrences starting 03/22/2023until 04/20/2024[facility] Work Phone: Comment on above:1 Occurrences starting 03/22/2023 until 04/20/2024VLDL cholesterol measurementUniversity Hospitals Samaritan Medical Center End: 30-77-1152HV Chest PA and LateralXR CHEST 2V FRONTAL/LAT Radiology Routine Primary pulmonary hypertension (HCC) 1 Occurrences starting 07/04/2024 until 08/03/2025levelPremier Health Miami Valley HospitalComment on above:1 Occurrences starting 07/04/2024 until 08/03/2025[facility] OR Immunizations Immunization DateImmunizationNotesCare MqtzbnvkMuugnhvt13-39-2321vmtzmml toxoid, reduced diphtheria toxoid, and acellular pertussis vaccine, adsorbedDO Gautam Dill Work Phone: [facility] CenterNEGATED: Highlighted row has not occurred!16-41-4800csswecoqa, seasonal, injectablePatient Objection Gautam Dill Other [facility] Payers DatePayer CategoryPayerPolicy [id number] [id number] 2018Medicare (Managed Care) [id number] [id number] 2.16840.1.764168.3.57[id number] 2.16840.1.162824.3.57[id number] 2.16840.1.292474.3.57[id number] 2.16840.1.843175.3.57[id number] 2.16840.1.094810.3.57[id number] 2.16840.1.204643.3.57[id number] 2.16840.1.854798.3.579.2.939326-17-1589Rvsdppk Health [id number] [id number] 2.16840.1.8[id number] 2.840.1.0[id number] 2.840.1.103994.3.579.2.531 [id number] 2.16.840.1.656367.3.579.2.531 Social History DateTypeDetailFacilityUnknown if ever smokedNorth RepRegen Other Start: 05-23-2018 End: 63-46-9175Biu Assigned At [facility] HospitalStart: 63-28-9831Fgk Assigned At [facility] Hospitaltart: 03-11-2014 End: 27-79-7164Iuujhok smoking status NHISNever smoked tobaccoRiverview Health Institute Start: 03-11-2014 End: 44-85-9102Daybgyl use and exposureSmokeless tobacco non-userCleveland Clinic Fairview Hospitaltart: 05-23-2018 End: 87-01-3108Mdkakvy intakeCurrent non-drinker of alcohol (finding)[facility] Hospitaltart: 05-23-2018 End: 11-84-7837Wfeycbm of Social functionColumbia Regional HospitalStart: 04-09-2012 National Score (1-100), lower number is lower riskNot on [facility] Start: 56-82-6543Qis Assigned At BirthNot on [facility] Hospitaltart: 01-12-2024 End: 37-71-0751Wfcfxkdwc beverage intakeEx-drinker (finding)[facility] Start: 31-82-3280Ayvleb identityIdentifies as female gender (finding)[facility] HospitalStart: 07-17-2024 End: 26-33-4625MhjQocroj (finding)[facility] Goals DatePatient GoalDesired Activity/StatePersonal health goal Functional Status JfbzUcsarmkaxbMzcukkSuswneou05-91-2498Pto you deaf, or do you have serious difficulty hearingNo 11/25/2014 2:54 PM EDT Ashwini Stevens MA [facility] CenterKyoduf26-94-3036Ipc you blind, or do you have serious difficulty seeing, even when wearing glassesNo 11/25/2014 2:54 PM EDT Ashwini Stevens MA [facility]07-20-2015Do you have serious difficulty walking or climbing stairsNo 11/25/2014 2:54 PM EDT Ashwini Stevens MA [facility]07-20-2015Do you have difficulty dressing or bathingNo 11/25/2014 2:54 PM EDT Ashwini Stevens MA [facility] CenterSsgqvd64-94-4202Rocdbnu of a physical, mental, or emotional condition, do you have difficulty doing errands alone such as visiting a physician's office or shoppingNo 11/25/2014 2:54 PM EDT Ashwini Stevens MA No [facility] Mental Status LfzgRxgbzufztfMwcpkwLvkxktio01-00-8494Isznxjk of a physical, mental, or emotional condition, do you have serious difficulty concentrating, remembering, or making decisionsNo 11/25/2014 2:54 PM EDT Ashwini Stevens MA [facility] Clinical Notes 12-26-2014 to 03-06-2025 Note Date & AquaZbglWuxecvvl60-36-9231 NoteHNO ID: [id number] Author: QUINCY QUAN MD Service: ? Author Type: Physician Type: Progress Notes Filed: 03/06/2025 09:25 Note Text: Heart[facility] V[facility] AND Thor[facility] Department of Cardiovascular Medicine VIRTUAL VIDEO VISIT ESTABLISHED OUTPATIENT VISIT SERVICE DATE: 03/06/2025 Patient: Iris Thomason SERVICE TIME: 9:19 AM : 1965 This is a virtual video visit. It required patient-provider interaction for the medical decision making as documented below. Iris Thomason has consented to this video encounter. I have communicated my name and active licensure. The patient's identity and physical location were verified at the time of this visit. Either the patient or their legal publications sales representative has been informed of the risks and benefits of -- and alternatives to -- treatment through a remote evaluation and consents to proceed with the evaluation remotely. Iris Thomason is a 60 year old female seen for follow up. CHIEF COMPLAINT Palpitations ?POTS EMMANUEL HISTORY OF PRESENT ILLNESS Iris Thomason is a 60 year old female with primary complaint of palpitations, with skipped beats, sometimes jolting and making her cough. Last for seconds. She does have EMMANUEL class 2 and she has stopped exercising for concern regarding palpitations and EMMANUEL. PAST MEDICAL HISTORY Diagnosis Date Autoimmune disease [...] and removed PAST SURGICAL HISTORY OF 1995 [facility] SKIN BX, 1 LESION facial TOOTH ROOT REMOVAL wisdom teethe removed FAMILY HISTORY Problem Relation Age of Onset Heart Mother Arrythmias Mother afib other (pulmonary embolism [Other]) Mother Prostate Cancer Father Arrythmias Maternal Grandmother afib Heart Failure Maternal Grandmother Leukemia Maternal Grandfather Sudden Cardiac Paternal Grandfather Heart Attack Paternal Grandfather Arrythmias Maternal Aunt afib Lymphoma Maternal Aunt other (Cancer in lymph nodes) Maternal Uncle other (cancer of unknown primary) Maternal Uncle other (other) Maternal Uncle Breast Cancer Paternal Aunt No Known Problems Son No Known Problems Daughter SOCIAL HISTORY[1] ALLERGIES Allergen Reactions Contrast Dye Other: See [...] Trimethoprim Itching Other Reaction(s): itching CURRENT MEDICATIONS nebivolol (BYSTOLIC) 5 mg tablet Take 1 tablet by mouth once daily. MAGNESIUM GLYCINATE ORAL Take 240 mg by mouth once daily. High absorption (Patient taking differently: Take 240 mg by mouth once daily as needed (prn).) acetaminophen (TYLENOL 8 HOUR ORAL) Take by mouth as needed. gabapentin (NEURONTIN) 100 mg capsule Take 1 capsule by mouth once daily. REVIEW OF SYSTEMS: GENERAL: Negative for: Weight loss or gain, Fever or Chills, Weakness and Sleep difficulties. HEENT: Negative for: Headache, Impaired Vision, Glasses, Hearing Impairment, Ringing in Ears, Nosebleeds, Poor dental care, Bleeding Gums, Dentures NECK: Negative for: Swelling, Pain, Stiffness RESPIRATORY: Negative for: Cough, Bl (more content not included)...[facility]09-16-2025 History of Present illness Narrative* Keiko Cordova DO - 01/22/2025 9:30 AM EDT Images from the original note were not included. Keiko Cordova D.O. Obstetrics and Gynecology Patient: Iris Thomason : 1965 (59 y.o.) Yearly Wellness Exam Date: 01/22/2025 Reason for Visit - Chief Complaint Patient presents with Gynecologic Exam Pt states occasionally will have dysuria, would like urine dip. Urine collected. Pt states she drank very little water today. 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 Denies any other concerns. Ptstates after EMB had pelvic pain for a week. Denies vaginal bleeding/spotting. Visit Vitals BP 122/80 Wt 202 lb BMI 31.64 kg/m OB Status Premenopausal Smoking Status Never [...] Term Vag-Spont 1 SAB Obstetric Comments Pap smear 01/12/24 wnl Mammogram 02/09/24 wnl @ [facility] Review of Systems - General: Chills denies. [...] Review Audit Reviewed by Marilee Cr MA ([employer] P[employer] Developer) on 01/22/25 at 1004 Medication Order Taking? Sig Documenting Provider Last Dose Status esomeprazole (NexIUM) [address] capsule [id number] Take 20 mg by mouth in the morning. Take before meals. Do not open capsule.. Delores Cantor, DO Active gabapentin (Neurontin) 100 MG capsule [id number] Take 100 mg by mouth in the morning and 100 mg before bedtime. Historical Provider, Active loperamide (Imodium A-D) 2 MG tablet [id number] Take 2-4 mg by mouth 4 (four) times a day as needed for diarrhea Delores Cantor, DO Active magnesium 200 MG tablet [id number] Take by mouth Keiko Cordova, DO Active nebivolol (Bystolic) 5 MG tablet [id number] Take 2.5 mg by mouth in the morning. Historical Provider, Active Past Medical History: Diagnosis Date Abnormal Pap smear of cervix 10/30/20 ascus hpv neg Anemia Autoimmune disease (HCC) Breast lump Chicken pox History of Liv-Elise virus infection History of thyroid nodule History of tremor Hyperkinetic heart syndrome Hypertension IBS (irritable bowel syndrome) POTS (postural orthostatic tachycardia syndrome) Pulmonary hypertension (HCC) Past Surgical History: Procedure Laterality Date COLONOSCOPY [...] Screening for malignant neoplasm of cervix - IGP, RFX APTIMA HPV ASCU Encounter for screening mammogram for breast cancer - Bilateral screening mammogram with tomosynthesis Dysuria - POCT urinalysis dipstick manually resulted Pap, pelvic and breast exam completed. Findings of today's exam discussed with the patient. Continue MSBE. Ca/Vit D recommendations reviewed with the patient. The patient is to contact the office with any changes to her gynecological condition. The patient is to return in 1 year or as needed Urine dipstick WNL ICD-10-CM 1. Encounter for gynecological examination without abnormal finding Z01.419 2. Screening for malignant neoplasm of cervix Z12.4 3. Encounter for screening mammogram for breast cancer Z12.31 4. Dysuria R30.0 POCT urinalysis dipstick manually resulted documented in this encounterColumbia Regional HospitalMdwpbuylwk30-16-9968 NoteHNO ID: [id number] Author: SHAWNA SANCHEZ, TECHNOLOGIST Service: ? Author Type: Technologist Type: Progress Notes Filed: 12/26/2024 16:35 Note Text: MCT/EVENT MONITOR DISPOSABLE PATCH INSTRUCTIONS [facility]: [id number] Skin prepped and cleansed with alcohol. Patch secured to prepped area. Monitor Activated. [place] Activated. Serial #: [id number] Patient Instructed: Prescribed order timeframe Bathing guidelines Usage of event button and diary documentation Return of monitor at the end of prescribed order Call with problems Patient expresses a good understanding of instructions TECHNOLOGIST PatriciaKettering Health [facility] Campus08-20-2025 History of Present illness Narrative* Shawna Sanchez TECHNOLOGIST - 12/26/2024 4:34 PM EDT MCT/EVENT MONITOR DISPOSABLE PATCH INSTRUCTIONS Patient Name: [facility] Number: [id number] Skin prepped and cleansed with alcohol. Patch secured to prepped area. Monitor Activated. [place] Activated. Serial #: [id number] Patient Instructed: Prescribed order timeframe Bathing guidelines Usage of event button and diary documentation Return of monitor at the end of prescribed order Call with problems Patient expresses a good understanding of instructions TECHNOLOGIST Patricia documented in this encounterRiverview Health Institute08-20-2025 NoteHNO ID: [id number] Author: MAINE THOMPSON MD Service: ? Author Type: Physician Type: Procedures Filed: 01/22/2025 12:24 Note Text: Patient Name: Iris Thomason : 1965 Ordering Provider: QUINCY QUAN Indication: R00.2 Palpitations Type of Monitor: Extended Monitoring-Zio Patch Enrollment Dates: 12/26/2024-01/09/2025 IRHYTHM FINDINGS: Patient had a min HR of 49 bpm, max HR of 185 bpm, and avg HR of 67 bpm. Predominant underlying rhythm was Sinus Rhythm. Non-sustained atrial tachycardia. Isolated SVEs were rare (< 1.0%), SVE Couplets were rare (<1.0%), and no SVE Triplets were present. Isolated VEs were rare (<1.0%), and no VE Couplets or VE Triplets were present. Reviewed, Edited and Signed by Maine Thompson MD January 22, 2025 12:24 [facility]06-02-2025 Instructions* Patient Instructions* Amanda Moreno DO - 10/08/2024 [...] concerns, contact our office. documented in this encounterRiverview Health Institute06-02-2025 NoteHNO ID: [id number] Author: YAIR HILL MD Service: ? Author [...] Thomason DATE: October 08, 2024 TIME: 2:53 [facility]06-02-2025 Procedure note* Aries Flores RRT - 10/08/2024 2:47 PM [...] and made appropriate revisions as needed. SIGNATURE: Yari Hill MD PATIENT NAME: Iris Thomason DATE: October 08, 2024 TIME: 2:53 PM [facility]06-02-2025 Procedure note* Aries Flores RRT - 10/08/2024 2:47 PM [...] 2024 TIME: 2:53 PM documented in this encounterRiverview Health Institute06-02-2025 NoteHNO ID: [id number] Author: AMANDA MORENO DO Service: ? Author [...] or by mail. Following HPI dictated by [employer] software. HPI: Iris is a 59-year-old female with a history of POTS, presenting for evaluation of pulmonary hypertension and dyspnea. Iris reports a history of dyspnea and fatigue over the past year, with episodes of needle pain in the ear beginning in January while at a store. She was evaluated at [facility] in February, where an EKG was performed. Initial results were reported as normal, but she was later informed of abnormalities. She expresses dissatisfaction with the care received at [facility], citing poor communication and delays in test results. She underwent an echocardiogram, which initially suggested elevated pressures but was reportedly normal on repeat testing. She was referred for evaluation of pulmonary hypertension by her locomotive boilermaker, Dr. Fink, who discussed the possibility of a heart catheterization to measure pressures. 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 She can walk a [...] was previously evaluated at the [facility], where it was suggested that her [...] nearly 2 years. She underwent spirometry at [facility] in June, with normal results. She also [...] Other Reaction(s): Spasm Other (more content not included)...[facility]06-02-2025 History of Present illness Narrative* Amanda Moreno DO - 10/08/2024 2:38 PM [...] or by mail. Following HPI dictated by [employer] software. HPI: Iris is a 59-year-old female with a history of POTS, presenting for evaluation of pulmonary hypertension and dyspnea. Iris reports a history of dyspnea and fatigue over the past year, with episodes of needle pain in the ear beginning in January while at a store. She was evaluated at [facility] in February, where an EKG was performed. Initial results were reported as normal, but she was later informed of abnormalities. She expresses dissatisfaction with the care received at [facility], citing poor communication and delays in test results. She underwent an echocardiogram, which initially suggested elevated pressures but was reportedly normal on repeat testing. She was referred for evaluation of pulmonary hypertension by her locomotive boilermaker, Dr. Fink, who discussed the possibility of a heart catheterization to measure pressures. 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 She can walk a [...] was previously evaluated at the [facility], where it was suggested that her [...] nearly 2 years. She underwent spirometry at [facility] in June, with normal results. She also [...] HIV No results found for: HIVSCN , [id number] ] Hepatitis B Surface Antigen No results [...] volumes/DLCO were essentially normal from 06/2024 at [facility]. DLCO mildly reduced 67% predicted corrected for [...] and documented today. Amanda Moreno DO [facility] October 0852:38 PM documented in this encounterRiverview Health Institute05-30-2025 Instructions* Patient Instructions* Wing Farrell, SURFACE GRINDER TENDER.GAME SHOW HOST - 10/05/2024 12:59 PM EDT Images from [...] small number of people the nodule may board turner to be an early cancer. Your doctor [...] cancer? Fewer than 5% of all nodules board turner to be cancer What if my nodule [...] IS WRONG. ATS Patient Education Series 2016 [employer] Lung [facility] [address] [place] [address] [address] [facility] [place] [address] F: Specialist Providers: Chelsea Lester PA-C; Pema Martin CNP; Tasha Ho CNP, Sanjuana Voss CNP; Michelle Lam CNP; KARLEE Anglin; Angela Ro CNP; Linda Goff; Cherelle Gutierrez CNP; Jessie Verdugo CNP; Keiko Ott PA-C; Genet Titus PA-C; Kelsi Carter CNP; Corinne Douglas CNP; Carla Smith CNP; Wing Farrell CNP documented in this encounterRiverview Health Institute05-30-2025 NoteHNO ID: [id number] Author: WING FARRELL APRN.JOSE Service: ? Author Type: Nurse Practitioner Type: Progress Notes Filed: 10/05/2024 16:43 Note Text: [facility] INCIDENTAL LUNG NODULE PROGRAM (Follow Up) Impression [...] Nodule program: Completed Lung Nodule Program Location: [facility] History of Present Illness Iris Thomason is [...] duty. - 2/2 fatigue Modified [employer] [place] Dyspnea Scale (MMRC) I get short of [...] and removed PAST SURGICAL HISTORY OF 1995 [facility] SKIN BX, 1 LESION facial TOOTH ROOT REMOVAL wisdom teeth (more content not included)...[facility]05-30-2025 History of Present illness Narrative* Wing Farrell, SURFACE GRINDER TENDER.GAME SHOW HOST - 10/05/2024 12:15 PM EDT Images from the original note were not included. [facility] INCIDENTAL LUNG NODULE PROGRAM (Follow Up) Impression [...] Nodule program: Completed Lung Nodule Program Location: [facility] History of Present Illness Iris Thomason is [...] duty. - 2/2 fatigue Modified [employer] [place] Dyspnea Scale (MMRC) I get short of [...] placed at the beginning of this note. Wing Farrell APRN.CNP Pulmonary & Critical Care Medicine [facility] October 05, 2024 12:16 PM CC: Gautam Dill DO documented in this encounterRiverview Health Institute05-30-2025 NoteHNO ID: [id number] Author: BLAS JOSE RT(Rashida) Service: ? Author [...] PATIENT PRESENTS WITH AN IMPLANTABLE OR ATTACHED DOUGHNUT MACHINE OPERATOR HELPER: No RADIOLOGY DEPARTMENT: CT; Exam(s) Completed: Chest PERIPHERAL IV DATA: Not applicable SIGNED BY: RT Jenny(Rashida) October 05, 2024 11:45 [facility]05-30-2025 History of Present illness Narrative* Blas Jose RT(Rashida) - 10/05/2024 11:45 AM EDT Radiology Service Progress Note PATIENT NAME: Iris [...] Assigned female at . status: : No status:NO. PATIENT RELEVANT IMPLANT DATA REVIEWED: Not Applicable PATIENT PRESENTS WITH AN IMPLANTABLE OR ATTACHED DOUGHNUT MACHINE OPERATOR HELPER: No RADIOLOGY DEPARTMENT: CT; Exam(s) Completed: Chest PERIPHERAL IV DATA: Not applicable SIGNED BY: RT Jenny(R) October 05, 2024 11:45 AM documented in this encounterRiverview Health Institute05-29-2025 Telephone encounter Note * Telephone Encounter - Kelsi Griffin - 10/04/2024 1:29 PM EDT The patient contacted us, indicating that one of our nurses had advised her against undergoing the VQ Lung Scan, as she has already completed two of these tests. The patient stated that these tests were performed at [facility] at the beginning of they. The patient can be reached at [phone]. She is seeking clarification regarding her appointment and is inquiring whether it is necessary to repeat the test. [facility]05-29-2025 Miscellaneous Notes* Telephone Encounter - Kelsi Griffin - 10/04/2024 1:29 PM EDT The patient contacted us, indicating that one of our nurses had advised her against undergoing the VQ Lung Scan, as she has already completed two of these tests. The patient stated that these tests were performed at [facility] at the beginning of . The patient can be reached at [phone]. She is seeking clarification regarding her appointment and is inquiring whether it is necessary to repeat the test. documented in this encounterRiverview Health Institute05-28-2025 Instructions* Patient Instructions* Lorenzo Lora MD - 10/03/2024 9:38 AM EDT - Consult interventional cardiology - Dr Sotero Quan. - Consult [facility] clinic - Dr Priyank Coles. - Follow up with us as needed. documented in this encounterRiverview Health Institute05-28-2025 Joao ID: [id number] Author: LORENZO LORA MD Service: ? Author Type: Physician Type: Progress Notes Filed: 10/03/2024 09:40 Note Text: Heart, Vascular AND Thoracic [place] Department of Cardiovascular Medicine VIRTUAL VIDEO VISIT [...] visit. Either the patient or their legal publications sales representative has been informed of the [...] Is wanting to see new EP at [facility] for POTS. PAST MEDICAL HISTORY Diagnosis [...] removed - PAST SURGICAL HISTORY OF 1995 [facility] - SKIN BX, 1 LESION facial - [...] ibuprofen (MOTRIN) 600 mg (more content not included)...[facility]05-28-2025 History of Present illness Narrative* Lorenzo Lora MD - 10/03/2024 9:05 AM EDT Heart, Vascular & Thoracic [place] Department of Cardiovascular Medicine VIRTUAL VIDEO VISIT [...] visit. Either the patient or their legal publications sales representative has been informed of the risks and benefits of -- and alternatives to -- treatment through a remote evaluation andconsents to proceed with the evaluation remotely. Iris [...] Is wanting to see new EP at [facility] for POTS. PAST MEDICAL HISTORY Diagnosis [...] hours as needed for Pain. Take withfood. (Patient taking differently: Take 800 mg by [...] and flutters. Scanned on 08/08/2024 Jennifer COE 07/31 TTE CONCLUSIONS: - Exam indication: PHTN [...] Level: 4 - Moderate documented in this encounterRiverview Health Institute05-06-2025 History of Present illness Narrative* Keiko Cordova DO - 09/11/2024 9:00 AM EDTAssociated Order(s): Endometrial biopsy Post-Procedure Diagnose(s): Thickened endometrium [...] Comments Pap 12/21/22- Neg [place]23[place] [place]: endometrial thickness measures 6.4 mm, [...] Review Audit Reviewed by Marilee Cr MA (Filenet P8 Developer) on 09/11/24 at 0905 Medication Order Taking? Sig Documenting Provider Last Dose Status Discontinued 09/11/24 0904 esomeprazole (NexIUM) [address] capsule [id number] Take 20 mg by mouth in the morning. Take before meals. Do not open capsule.. Delores Cantor, DO Active gabapentin (Neurontin) 100 MG capsule [id number] Take 100 mg by mouth in the morning and 100 mg before bedtime. Historical Provider, Active loperamide (Imodium A-D) 2 MG tablet [id number] Take 2-4 mg by mouth 4 (four) times a day as needed for diarrhea Delores Cantor DO Active magnesium 200 MG tablet [id number] Take by mouth Keiko Cordova DO Active Discontinued 09/11/24 0904 nebivolol (Bystolic) 5 MG tablet [id number] Take 2.5 mg by mouth in the [...] Hysteroscopy with polypectomy, directed D&C using TRUCLEAR Cheney&Nephb3 bio morcellator (Dr Blanton) EXPLORATORY LAPAROTOMY 1996 D&C [...] are normalor at baseline unless noted below. General: Alert, [...] Dysuria R30.0 Urine culture documented in this encounterColumbia Regional [id number] Note* Addendum Note - Wing Farrell APRN.CNP - 08/16/2024 5:38 PM EDTAddended by: WING FARRELL on: 08/16/2024 05:38 PM Modules accepted: Orders [facility]04-10-2025 Miscellaneous Notes* Addendum Note - Wing Farrell APRN.CNP - 08/16/2024 5:38 PM EDTAddended by: WING FARRELL on: 08/16/2024 05:38 PM Modules accepted: Orders documented in this encounterRiverview Health Institute04-10-2025 Telephone encounter Note * Telephone Encounter - Wing Farrell APRN.CNP - 08/16/2024 9:56 AM EDT Please schedule patient for CT chest wo contrast and follow up with the lung nodule clinic team to review. Thank you, Wing [facility]04-10-2025 Miscellaneous Notes* Telephone Encounter - Wing Farrell APRN.CNP - 08/16/2024 9:56 AM EDT Please schedule patient for CT chest wo contrast and follow up with the lung nodule clinic team to review. Thank you, Wing documented in this encounterRiverview Health Institute04-10-2025 Instructions* Patient Instructions* Wing Farrell APRN.CNP - 08/16/2024 9:53 AM EDT Images from [...] small number of people the nodule may board turner to be an early cancer. Your doctor [...] cancer? Fewer than 5% of all nodules board turner to be cancer What if my nodule [...] IS WRONG. ATS Patient Education Series 2016 [place] [employer] Lung Nodule Clinic [facility] [address] [place] [address] [address] [facility] [place] [address] F: Specialist Providers: Chelsea Lester PA-C; Pema Martin CNP; Tasha Ho CNP, Sanjuana Voss CNP; Michelle Lam CNP; KARLEE Anglin; Angela Ro CNP; Linda Goff; Cherelle Gutierrez CNP; Jessie Verdugo CNP; Keiko Ott PA-C; Genet Titus PA-C; Kelsi Carter CNP; Corinne Douglas CNP; Carla Smith CNP documented in this encounterRiverview Health Institute04-10-2025 History of Present illness Narrative* Wing Farrell APRN.CNP - 08/16/2024 9:30 AM EDT Images from the original note were not included. [facility] INCIDENTAL LUNG NODULE PROGRAM (Distance Health Visit) [...] after spirometry, 6MW and VQ scan Wing Farrell APRN.CNP Pulmonary & Critical Care Medicine [facility] [place] August 16, 2024 Follow Up Diagnosis: Lung Nodule Recommendation: CT Scan Follow up Date: 08/20/2024 Follow-Up Scheduled: No Pulmonary Follow-Up Type: Lung Nodule Surveillance Enrolled in Lung Nodule program: Yes Lung Nodule Program Location: [facility] DISTANCE HEALTH VISIT NOTE I have communicated my name and active licensure. The patient's identity and physical location wereverified at the time of this visit. Either the patient or their legal publications sales representative has been informed of the risks and benefits of -- and alternatives to -- treatment through a remote evaluation andconsents to proceed with the evaluation remotely. This is a virtual visit using [employer] Video Visit. It required patient- provider interaction for the medical decision making as [...] indication of chronic cough and pulm HTN. 1nodule was detected Incidentally. The nodule of greatest [...] 90.3 kg (199 lb) Modified Medical Research [place] Dyspnea Scale (MMRC) I get short of [...] history of lung cancer? No Malignancy Risk ([facility] model) Lung Nodule Calculator: Pending CT confirmation [...] placed at the beginning of this note. Wing Farrell APRN.CNP Pulmonary & Critical Care Medicine documented in this encounterRiverview Health Institute04-10-2025 NoteHNO ID: [id number] Author: WING FARRELL APRN.CNP Service: ? Author Type: Nurse Practitioner Type: Progress Notes Filed: 08/16/2024 16:35 Note Text: [facility] INCIDENTAL LUNG NODULE PROGRAM (Distance Health Visit) [...] after spirometry, 6MW and VQ scan Wing Farrell APRN.[facility] Pulmonary AND Critical Care Medicine [facility] [place] August 16, 2024 Follow Up Diagnosis: Lung Nodule Recommendation: CT Scan Follow up Date: 08/20/2024 Follow-Up Scheduled: No Pulmonary Follow-Up Type: Lung Nodule Surveillance Enrolled in Lung Nodule program: Yes Lung Nodule Program Location: [facility] DISTANCE HEALTH VISIT NOTE I have communicated my name and active licensure. The patient's identity and physical location were verified at the time of this visit. Either the patient or their legal publications sales representative has been informed of the risks and benefits of -- and alternatives to -- treatment through a remote evaluation and consents to proceed with the evaluation remotely. This is a virtual visit using To8to Video Visit. It required patient-provider interaction for [...] 90.3 kg (199 lb) Modified [employer] [place] Dyspnea Scale (MMRC) I get short of [...] history of lung cancer? No Malignancy Risk ([facility] model) Lung Nodule Calculator: Pending CT confirmation [...] communication via the (more content not included)... [facility]04-03-2025 Telephone encounter Note* Telephone Encounter - Lena Murrell - 08/09/2024 12:33 PM EDT Patient called asking for results to be faxed to Dr Lora office at [facility] Main [phone]. Explained that provider can see results in the chart but she states she was told to have all the results faxed to the office. She also states that she needs to know what to do about the lung nodule. Please review and advise. [facility]04-03-2025 Miscellaneous Notes* Telephone Encounter - Lena Murrell - 08/09/2024 12:33 PM EDT Patient called asking for results to be faxed to Dr Lora office at [facility] [phone]. Explained that provider can see results in the chart but she states she was told to have all the results faxed to the office. She also states that she needs to know what to do about the lung nodule. Please review and advise. * Telephone Encounter - Yancy Low RN - 08/09/2024 12:19 PM EDT Patient calling with lab result Patient denies any new or worsening symptoms of which a provider isnot aware: Yes. Patient was conferenced to Sanjuana in Dr. Lora's office at [phone]. documented in this encounterRiverview Health Institute04-03-2025 Telephone encounter Note * Telephone Encounter - Yancy Low RN - 08/09/2024 12:19 PM EDT Patient calling with lab result Patient denies any new or worsening symptoms of which a provider isnot aware: Yes. Patient was conferenced to Sanjuana in Dr. Lora's office at [phone]. [facility]03-25-2025 NoteHNO ID: [id number] Author: HEATHER GARCIA LPN Service: ? Author Type: LICENSED NURSE Type: Progress Notes Filed: 07/31/2024 14:50 Note Text: HOLTER MONITOR APPLICATION Iris Thomason [id number] present today for the placement of a [...] day of removal 6.) Call with problems [phone] Pt aware Holter monitor cannot be instantly viewed and advised pt to go to ER for worsened or severe symptoms. Equipment Return and financial responsibility form signed Patient expresses good verbal understanding of instructions Holter Monitor #:[id number] Holter start time:2:15 PM [facility] History of Present illness Narrative* Heather Garcia LPN - 07/31/2024 2:47 PM EDT HOLTER MONITOR APPLICATION Iris Thomason [id number] present today for the placement of a [...] day of removal 6.) Call with problems [phone] Pt aware Holter monitor cannot be instantly viewed and advised pt to go to ER for worsened or severe symptoms. Equipment Return and financial responsibility form signed Patient expresses good verbal understanding of instructions Holter Monitor #:[id number] Holter start time:2:15 PM Heather Garcia LPN documented in this encounterRiverview Health Institute03-25-2025 NoteHNO ID: [id number] Author: CA TUTTLE RT(R) Service: ? Author Type: Technologist Type: Progress [...] PATIENT PRESENTS WITH AN IMPLANTABLE OR ATTACHED DOUGHNUT MACHINE OPERATOR HELPER: No RADIOLOGY DEPARTMENT: General X-ray: Exam(s) Completed: Chest X-Ray PERIPHERAL IV DATA: Not applicable SIGNED BY: RT Mukesh(R) July 31, 2024 1:21 [facility]03-25-2025 History of Present illness Narrative* Ca Tuttle RT(R) - 07/31/2024 1:21 PM EDT Radiology Service Progress Note PATIENT NAME: Iris [...] Assigned female at . status: : No status:NO. PATIENT RELEVANT IMPLANT DATA REVIEWED: Not Applicable PATIENT PRESENTS WITH AN IMPLANTABLE OR ATTACHED DOUGHNUT MACHINE OPERATOR HELPER: No RADIOLOGY DEPARTMENT: General X-ray: Exam(s) Completed: Chest X-Ray PERIPHERAL IV DATA: Not applicable SIGNED BY: RT Mukesh(R) July 31, 2024 1:21 PM documented in this encounterRiverview Health Institute03-10-2025 Telephone encounter Note * Telephone Encounter - Deon Duron - 07/16/2024 1:01 PM EDT July 16, 2024 Name: Iris Thomason Patient Contact Number: [phone] (home) [phone] (cell) Date of last office visit: 07/04/2024 Reason For Call: patient calling in stating that she is having an endometrial biopsy on . Is this procedure okay to do due to the lab work that came back last week. Please advise Physician: Lorenzo Lora MD Patient was informed that non-urgent calls may be returned within the next three business days. Yes Deon Duron [facility]03-10-2025 Miscellaneous Notes* Telephone Encounter - Deon Duron - 07/16/2024 1:01 PM EDT July 16, 2024 Name: Iris Thomason Patient Contact Number: [phone] (home) [phone] (cell) Date of last office visit: 07/04/2024 [...] days. Yes Deon Duron documented in this encounterRiverview Health Institute03-09-2025 NoteResults of pulmonary function study performed 06/29/2024 at the [facility] Results of study became available to me [...] on this I recommend formal evaluation by sample examiner. Will have my staff contact patient regarding this. Since she lives near the [facility] area, will seek out sample examiner in that area. Sylvia, please let patient know that there are no acute or serious findings on her pulmonary function test, but her DLCO readings (the crossover of oxygen into the bloodstream) was not completely normal. Because of this I would like her to see a sample examiner for more complete pulmonary evaluation. If she has a sample examiner she would like to use, I am glad to make a formal referral to him, otherwise I will ask the office staff at [facility] to locate a local provider specialist. Kind regards, Iris Sequeira, [facility]03-03-2025 Miscellaneous Notes* Telephone Encounter - Ashutosh Anthony - 07/09/2024 4:43 PM EST Referring physician: Guido Ventura Diagnosis: PH Are there epic records: Yes Are there care everywhere records: Yes Has a referral form been faxed: No Has patient been added to spreadsheet: No Routing: If records complete - route to [facility] for clinical team review. If records incomplete - please route to judicial administrative assistant. documented in this encounterRiverview Health Institute03-03-2025 Telephone encounter Note * Telephone Encounter - Ashutosh Anthony - 07/09/2024 4:43 PM EST Referring physician: Guido Ventura Diagnosis: PH Are there epic records: Yes Are there care everywhere records: Yes Has a referral form been faxed: No Has patient been added to spreadsheet: No Routing: If records complete - route to [facility] for clinical team review. If records incomplete - please route to judicial administrative assistant. [facility]03-03-2025 Telephone encounter Note* Telephone Encounter - Rohini Day - 07/09/2024 12:26 PM EST July 09, 2024 Name: Iris Thomason Patient Contact Number: [phone] (home) [phone] (cell) Date of last office visit: 07/04/2024 Reason For Call: Pt called stating that she has done concerns about her recent lab result, and would like to speak with a nurse. Physician: Lorenzo Lora MD Patient was informed that non-urgent calls may be returned within the next three business days. Yes Rohini Day [facility]03-03-2025 Miscellaneous Notes* Telephone Encounter - Rohini Day - 07/09/2024 12:26 PM EST July 09, 2024 Name: Iris Thomason Patient Contact Number: [phone] (home) [phone] (cell) Date of last office visit: 07/04/2024 Reason For Call: Pt called stating that she has done concerns about her recent lab result, and would like to speak with a nurse. Physician: Lorenzo Lora MD Patient was informed that non-urgent calls may be returned within the next three business days. Yes Rohini Day documented in this encounterRiverview Health Institute02-28-2025 Telephone encounter Note * Telephone Encounter - Penny Oakley RN - 07/06/2024 3:31 PM EST Reached out to Emily Gonzalez to help schedule patient locally. Penny Oakley RN July 06, 2024 3:31 PM [facility]02-28-2025 Miscellaneous Notes* Telephone Encounter - Penny Oakley RN - 07/06/2024 3:31 PM EST Reached out to Emily Gonzalez to help schedule patient locally. Penny Oakley RN July 06, 2024 3:31 PM * Telephone Encounter - Sanjuana Pardo - 07/05/2024 3:19 PM EST July 05, 2024 Name: Iris Thomason Patient Contact Number: [phone] (home) [phone] (cell) Date of last office visit: 07/04/2024 Reason For Call: Other Issue: Patient went to yesterday to get holter monitor. They were not able to get insurance approval in time. Can she get it at one of the [facility] locations nearer to here like the [facility]? Iris Thomason is asking for someone to call her at [phone]. Physician: Lorenzo Lora MD Patient was informed that non-urgent calls may be returned within the next three business days. Yes Sanjuana Pardo documented in this encounterRiverview Health Institute02-28-2025 Telephone encounter Note * Telephone Encounter - Sanjuana Pardo - 07/06/2024 10:57 AM EST July 06, 2024 Name: Iris Thomason Patient Contact Number: [phone] (home) [phone] (cell) Date of last office visit: 07/04/2024 [...] Dr. Lora when he is available at [phone]. Physician: Lorenzo Lora MD Patient was informed that non-urgent calls may be returned within the next three business days. Yes Sanjuana Pardo [facility]02-28-2025 Miscellaneous Notes* Telephone Encounter - Sanjuana Pardo - 07/06/2024 10:57 AM EST July 06, 2024 Name: Iris Thomason Patient Contact Number: [phone] (home) [phone] (cell) Date of last office visit: 07/04/2024 [...] Dr. Lora when he is available at [phone]. Physician: Lorenzo Lora MD Patient was informed that non-urgent calls may be returned within the next three business days. Yes Sanjuana Pardo documented in this encounterRiverview Health Institute02-27-2025 Telephone encounter Note * Telephone Encounter - Sanjuana Pardo - 07/05/2024 3:19 PM EST July 05, 2024 Name: Iris Thomason Patient Contact Number: [phone] (home) [phone] (cell) Date of last office visit: 07/04/2024 Reason For Call: Other Issue: Patient went to yesterday to get holter monitor. They were not able to get insurance approval in time. Can she get it at one of the [facility] locations nearer to here like the [facility]? Iris Thomason is asking for someone to call her at [phone]. Physician: Lorenzo Lora MD Patient was informed that non-urgent calls may be returned within the next three business days. Yes Sanjuana Pardo [facility]02-26-2025 NoteCholesterol Ratio (LDL/HDL)July 04, 2024 5:51pm1.72<2.54Reference:1. National Cholesterol Education Program ATP III Guideline At-A-Glance Quick Desk Reference: National Heart, Lung, and Blood [place]. National Institutes of Health. 2001: NIH PublicationNo. .2. An International Atherosclerosis Society position paper: global recommendations for the management of dyslipidemia: executive summary, Atherosclerosis. 2014: 232(2):410-413.[facility] Medical CenterComment on above:Reference:1. National Cholesterol Education Program ATP III Guideline At-A-Glance Quick Desk Reference: National Heart, Lung, and Blood [place]. National Institutes of Health. 2001: NIH PublicationNo. .2. An International Atherosclerosis Society position paper: global recommendations for the management of dyslipidemia: executive summary, Atherosclerosis. 2014: 232(2):410-413. 07-04-2024 NoteCholesterol Ratio (LDL/HDL)July 04, 2024 5:51pm1.72<2.54 Reference:1. National Cholesterol Education Program ATP III Guideline At-A-Glance Quick Desk Reference: National Heart, Lung, and Blood [place]. National Institutes of Health. 2001: NIH PublicationNo. .2. An International Atherosclerosis Society position paper: global recommendations for the management of dyslipidemia: executive summary, Atherosclerosis. 2014: 232(2):410-413.[facility] Medical CenterComment on above:Reference:1. National Cholesterol Education Program ATP III Guideline At-A-Glance Quick Desk Reference: National Heart, Lung, and Blood [place]. National Institutes of Health. 2001: NIH PublicationNo. 3305.2. An International Atherosclerosis Society position paper: global recommendations for the management of dyslipidemia: executive summary, Atherosclerosis. 2014: 232(2):410-413. 07-04-2024 NoteCholesterol Ratio (LDL/HDL)July 04, 2024 5:51pm1.72<2.54 Reference:1. National Cholesterol Education Program ATP III Guideline At-A-Glance Quick Desk Reference: National Heart, Lung, and Blood [place]. National Institutes of Health. 2001: NIH PublicationNo. 3305.2. An International Atherosclerosis Society position paper: global recommendations for the management of dyslipidemia: executive summary, Atherosclerosis. 2014: 232(2):410-413.[facility] Medical CenterComment on above:Reference:1. National Cholesterol Education Program ATP III Guideline At-A-Glance Quick Desk Reference: National Heart, Lung, and Blood [place]. National Institutes of Health. 2001: NIH PublicationNo. 3305.2. An International Atherosclerosis Society position paper: global recommendations for the management of dyslipidemia: executive summary, Atherosclerosis. 2014: 232(2):410-413. 07-04-2024 Instructions* Patient Instructions* Lorenzo Lora MD - 07/04/2024 4:27 PM EST - Holter monitor for 2 days (J2 device clinic). - Blood work today. - Consult pulmonary hypertension clinic. - Follow up with us in clinic in 3 months - virtual. documented in this encounterRiverview Health Institute02-26-2025 History of Present illness Narrative* Lorenzo Lora MD - 07/04/2024 2:15 PM EST Images from the original note were not included. [facility] [place] [facility] SECTION OF HEART FAILURE and CARDIAC TRANSPLANT MEDICINE OUTPATIENT VISIT DATE July 04, 2024 OUTPATIENT VISIT TYPE Consultation PRIMARY CARE PHYSICIAN: [place] [address] CHIEF COMPLAINT: Palpitations NURSING INTAKE (Patient s concerns and/or recent hospitalizations/ER visits): Iris Thomason is a 59 y/o female from [place], [place] second opinion on pulmonary HTN Pt [...] side of chest. Was seen locally in [place],had EKG done that was abnormal. Wore a [...] (did have sleep study done, does not havesleep apnea) Lightheadedness or dizziness: some Feeling like [...] hours as needed for Pain. Take withfood. (Patient taking differently: Take 800 mg by [...] bruits, carotids have a normal upstroke, no palpablethyromegaly. Lungs: Clear to auscultation bilaterally, no wheezing [...] above information as obtained by others [facility] [place] [facility] Section Of Heart Failure and Cardiac Transplant Medicine Heart and Vascular [facility] Desk [address] [place] [address] Medical Decision Making: Problems: Moderate: New problem with uncertain prognosis Data: Unique test result(s) reviewed: 2 Unique test(s) ordered: 1 Risk: Low: Low risk from testing/treatment Medical Decision Making Level: 4 - Moderate documented in this encounterRiverview Health Institute02-26-2025 NoteHNO ID: [id number] Author: LORENZO LORA MD Service: ? Author Type: Physician Type: Progress Notes Filed: 08/12/2024 17:05 Note Text: Heart and Vascular [facility] SECTION OF HEART FAILURE and CARDIAC TRANSPLANT MEDICINE OUTPATIENT VISIT DATE July 04, 2024 OUTPATIENT VISIT TYPE Consultation PRIMARY CARE PHYSICIAN: Gautam Dill [address] [place] [address] CHIEF COMPLAINT: Palpitations NURSING INTAKE (Patient?s concerns and/or recent hospitalizations/ER visits): Iris Thomason is a 59 y/o female from [place], [place] second opinion on pulmonary HTN Pt [...] side of chest. Was seen locally in [place], had EKG done that was abnormal. Wore [...] removed - PAST SURGICAL HISTORY OF 1995 [facility] - SKIN BX, 1 LESION facial - [...] brown pain, spasms - (more content not included)...[facility]02-11-2025 NotePatient notified,agreed.[facility]02-11-2025 NoteReceived copy of PFT/DLCO done at the [facility] 05/30/24 Apparently on ly DLCO was performed [...] staff to notify patient. Iris Sequeira PA-C [facility] Cardiovascular Medicine [phone] Beachwood [facility]02-07-2025 Telephone encounter Note* Telephone Encounter - Rohini Day - 06/15/2024 3:59 PM EST Outside Echo report scanned into [employer] for review. [facility]02-07-2025 Miscellaneous Notes* Telephone Encounter - Rohini Day - 06/15/2024 3:59 PM EST Outside Echo report scanned into [employer] for review. documented in this encounterRiverview Health Institute2025 History of Present illness Narrative* Keiko Cordova DO - 06/13/2024 11:15 AM EST Images from the original note were not [...] Comments Pap 12/21/22- Neg [place]- [place]: endometrial thickness measures 6.4 mm, [...] Review Audit Reviewed by Marilee Cr MA ([employer] P[employer] Developer) on 06/13/24 at 1114 Medication Order Taking? Sig Documenting Provider Last Dose Status Calcium Carb-Cholecalciferol (Calcium 600/Vitamin D3) 600-20 MG-MCG tablet [id number] Take by mouth Delores Cantor, DO Active esomeprazole (NexIUM) [address] capsule [id number] Take 20 mg by mouth in the morning. Take before meals. Do not open capsule.. Delores Cantor, DO Active gabapentin (Neurontin) 100 MG capsule [id number] Take 100 mg by mouth in the morning and 100 mg before bedtime. Historical Provider, Active loperamide (Imodium A-D) 2 MG tablet [id number] Take 2-4 mg by mouth 4 (four) times a day as needed for diarrhea Delores Cantor, DO Active magnesium 200 MG tablet [id number] Take by mouth Keiko Cordova, DO Active Multiple Vitamins-Minerals (multivitamin with minerals) tablet [id number] Take 1 tablet by mouth Daily Keiko Cordova, DO Active nebivolol (Bystolic) 5 MG tablet [id number] Take 2.5 mg by mouth in the [...] are normalor at baseline unless noted below. General: Alert, [...] 1. Thickened endometrium R93.89 documented in this encounterColumbia Regional HospitalMngxhhbywp95-27-1639 NoteOpened in error. Closed for administrative reasons.[facility]01-18-2025 NoteForwarded to [facility] per BY; Patient notified and agreeable. She also wanted you to know that she did follow up with her PCP who then recommended the visits with [facility]01-18-2025 NoteReviewed faxed information from [facility] sleep disorder center regarding diagnostic sleep study [...] of PH scheduled 07/04/24 Iris Sequeira PA-C [facility] Cardiovascular Medicine [phone] [facility]12-20-20[facility] Evaluation note* Diagnosis Onset Date Resolution Status Admit Date Increased endometrial stripe thickness acuteDecember 2023 11:14amPulmonary hypertensionacuteDecember 2023 11:14amVitamin D deficiencyacuteDecember 2023 11:14am [facility] Work Phone: 1([phone]) 312-715912-16-2024 Note03/05/24 ANT Eller: Iris is a pleasant 59 year old female previously evaluated for orthostatic intolerance (OI) consistent with an autonomic neuropathy, subset postural orthostatic tachycardia syndrome (POTS), the connective tissue disorder of hypermobility at our [facility] in the Heart and Vascular Center at the [facility]. Last evaluated in clinic over 4 years [...] her PCP to jose (more content not included)...[facility]11-26-2024 Telephone encounter Note* Telephone Encounter - Marilee Cr MA - 04/03/2024 1:53 PM EST Can you please inform pt d/t the holidays we do not have anything available. Would recommend pt to contact primary care physician or go to urgent care. Thank you. [facility] HospitalQocwdfdhwz57-94-0302 Miscellaneous Notes* Telephone Encounter - Marilee Cr [...] for a week now. documented in this encounterColumbia Regional HospitalJxckesfvou88-14-9552 Telephone encounter Note* Telephone Encounter - Lela Portillo - 04/03/2024 1:43 PM EST Patient stated she has burning, feels like she can't empty and has an odor for a week now. [facility] HospitalXfsisvdnyr50-83-3344 Bryan is a pleasant 59 year old female previously evaluated for orthostatic intolerance (OI) consistent with an autonomic neuropathy, subset postural orthostatic tachycardia syndrome (POTS), the connective tissue disorder of hypermobility at our [facility] in the Heart and Vascular Center at the [facility]. Last evaluated in clinic over 4 years [...] Clinic Nurse Practitioner Division of Cardiovascular Medicine [facility] 01-12-2024 Telephone encounter Note* Telephone Encounter - Dejan Jama - 01/12/2024 2:27 PM EDT Called and spoke with pt- scheduled us and ov for march [facility] HospitalZlrsykmzir20-06-0916 Miscellaneous Notes* Telephone Encounter - Dejan Jama - 01/12/2024 2:27 PM EDT Called and spoke with pt- scheduled us and ov for march * Telephone Encounter - Keiko Cordova DO - 01/12/2024 11:13 AM EDT Patient is fine to schedule US anytime by the end of this year * Telephone Encounter - Dejan Jama - 01/12/2024 10:43 AM EDT Pt said she thought her pelvic us was in April but it was in july of this year and she wasn't sure when she needed to schedule the ultrasound documented in this encounterColumbia Regional HospitalGalazylebz37-70-8125 Telephone encounter Note* Telephone Encounter - Keiko Cordova DO - 01/12/2024 11:13 AM EDT Patient is fine to schedule US anytime by the end of this year [facility] [employer] Work Phone: 1(439) 760-329509-05-2024 Telephone encounter Note* Telephone Encounter - Dejan Jama - 01/12/2024 10:43 AM EDT Pt said she thought her pelvic us was in April but it was in july of this year and she wasn't sure when she needed to schedule the ultrasound [facility] Edykurmvsy09-51-0840 History of Present illness Narrative* Keiko Cordova [...] Comments Pap 12/21/22- Neg [place]ammogram 03/23/22- [place] 08/02/23: endometrial thickness measures 6.4 mm, [...] Review Audit Reviewed by Marilee Cr MA ([employer] P8 Developer) on 01/12/24 at 1020 Medication Order Taking? Sig Documenting Provider Last Dose Status Calcium Carb-Cholecalciferol (Calcium 600/Vitamin D3) 600-20 MG-MCG tablet [id number] Take by mouth Delores Cantor, DO Active esomeprazole (NexIUM) [address] capsule [id number] Take 20 mg by mouth in the morning. Take before meals. Do not open capsule.. Delores Cantor, DO Active gabapentin (Neurontin) 100 MG capsule [id number] Take 100 mg by mouth in the morning and 100 mg before bedtime. Historical Provider, Active loperamide (Imodium A-D) 2 MG tablet [id number] Take 2-4 mg by mouth 4 (four) times a day as needed for diarrhea Delores Cantor, DO Active nebivolol (Bystolic) 5 MG tablet [id number] Take 5 mg by mouth in the [...] Hysteroscopy with polypectomy, directed D&C using TRUCLEAR Cheney&Nephb3 bio morcellator (Dr Blanton) EXPLORATORY LAPAROTOMY 1996 D&C [...] PMB. Has followed with Dr. Blanton in [place] for the past 6 years. Did recommend [...] 5. Vaginal dryness N89.8 documented in this encounterColumbia Regional HospitalHjiclbhvcm78-46-0943 History of Present illness Narrative* Delores Cantor DO - 01/03/2024 1:00 PM EDT Images from the original note were not included. Subjective Irsi Thomason is a 58 y.o. 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 Exam conducted with a heritage consultant present. Procedures ICD-10-CM 1. Breast pain in [...] DO Assessment & Plan documented in this encounterColumbia Regional HospitalFwcoacjial43-03-4668 Telephone encounter Note* Telephone Encounter - Gwen Murrell LPN - 11/30/2023 5:36 PM EDT Labs are listed in [facility]07-24-2024 Miscellaneous Notes* Telephone Encounter - Gwen Murrell LPN - 11/30/2023 5:36 PM EDT Labs are listed in Epic * Telephone Encounter - Lena Murrell - 11/30/2023 1:44 PM EDT Iris is calling Matthew Hall MD today with concern regarding Patient Question and lab results. She is asking about labs that were sent over from [facility] in July. She states that the Thyroid AB was elevated and she wondered if anything should be done about this. Please review and advise. Patient has been identified by name and birthdate. Person calling: self Call patient at: at home [phone] (home) [phone] (cell) Was an appointment scheduled: No Closing statement: Results or non-symptom based questions: Thank you for calling [facility], your call will be returned within the next business day. Lena Murrell documented in this encounterRiverview Health Institute07-24-2024 Telephone encounter Note * Telephone Encounter - Lena Murrell - 11/30/2023 1:44 PM EDT Iris is calling Matthew Hall MD today with concern regarding Patient Question and lab results. She is asking about labs that were sent over from [facility] in July. She states that the Thyroid AB was elevated and she wondered if anything should be done about this. Please review and advise. Patient has been identified by name and birthdate. Person calling: self Call patient at: at home [phone] (home) [phone] (cell) Was an appointment scheduled: No Closing statement: Results or non-symptom based questions: Thank you for calling [facility], your call will be returned within the next business day. 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 Lainey Becerril MD, PhD She was positionned in decubitus [...] telephone. Follow up:With Dr. Apolinar MD, PhD [facility]07-10-2024 Procedure note* Lainey Becerril MD, PhD - 11/16/2023 4:21 PM EDTProcedure(s): [...] THYROID FNA (POC) ENDO USE ONLY, CYTOLOGY NON-BUZZSAW OPERATOR Iris Thomason was identified by name and [...] procedures): All specimen containers correctly labeled. Lainey Becerril MD, PhD She was positionned in decubitus [...] Dr. Apolinar MD, PhD documented in this encounterRiverview Health Institute07-10-2024 Nurse Note* Yi Jama MA - 11/16/2023 [...] Visit completed when applicable. Yi Jama MA [facility]07-10-2024 Nurse Note* Yi Jama MA - 11/16/2023 [...] applicable. Yi Jama MA documented in this encounterRiverview Health Institute07-02-2024 Telephone encounter Note * Telephone Encounter - Gwen Murrell LPN - 11/08/2023 3:46 PM EDT Spoke to patient, let her know that another US is not necessary. Patient verbalized understanding. [facility]07-02-2024 Miscellaneous Notes* Telephone Encounter - Gwen Murrell LPN - 11/08/2023 3:46 PM EDT Spoke to patient, let her know that another US is not necessary. Patient verbalized understanding. * Telephone Encounter - Sheela Banks - 11/07/2023 2:01 PM EDT Iris is calling Lainey Becerril MD, PhD today because she last had her US done in April and has canceled her biopsy a few times since then She is scheduled for biopsy next Tuesday but is asking if she needs another regular US at all ? Please advise Patient has been identified by name and birthdate. Duration of symptoms: N/A Person calling: self Call patient at: at home [phone] (home) [phone] (cell) Was an appointment scheduled: No Closing statement: Results or non-symptom based questions: Thank you for calling [facility], your call will be returned within the next business day. Sheela Haider documented in this encounterRiverview Health Institute07-01-2024 Telephone encounter Note * Telephone Encounter - Sheela Banks - 11/07/2023 2:01 PM EDT Iris is calling Lainey Becerril MD, PhD today because she last had her US done in April and has canceled her biopsy a few times since then She is scheduled for biopsy next Tuesday but is asking if she needs another regular US at all ? Please advise Patient has been identified by name and birthdate. Duration of symptoms: N/A Person calling: self Call patient at: at home [phone] (home) [phone] (cell) Was an appointment scheduled: No Closing statement: Results or non-symptom based questions: Thank you for calling [facility], your call will be returned within the next business day. Sheela Tyson Pss [facility]06-12-2024 Hospital Discharge instructionsAmbulatory Orders* Referral to Gastroenterology Time Frame: 10/19/23, Location: None Selected [facility] Work Phone: 1(717) 356-701406-12-2024 Evaluation note* Author Pema Lo [facility] Medical CenterAuthoCarlsbad Medical Centeradarsh 2023 8:48amThe above note written by CHRISTIANO Ruiz acting as human recorder, note dictated by Dr. Gautam Dill. [facility] Work Phone: 1(872) 990-621604-03-2024 Miscellaneous Notes* Telephone Encounter - Carla Velasquez RN - 08/10/2023 1:47 PM EDT Called patient to discuss the following message from Dr. 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 If she wants to further discuss, [...] Visit date not found documented in this encounterRiverview Health Institute04-01-2024 History of Present illness Narrative* Heather Blanton MD - 08/08/2023 5:52 PM EDT Images from the original note were not included. I have communicated my name and active licensure. The patient's identity and physical location wereverified at the time of this visit. Either the patient or their legal publications sales representative has been informed of the risks and benefits of -- and alternatives to -- treatment through a remote evaluation andconsents to proceed with the evaluation remotely. This is a 58 yo with recurrent endometrial thickening, no vaginal bleeding. Previous hysteroscopic polypectomy D&C with pathology with proliferative endometrium and endometrial polyp. Referred by Dr. Samantha Hernandez in [place] In 2018 had hysteroscopy: Surgery/Procedure Date: 04/25/2018 Incision/Procedure Start Time: 10:03 AM Incision Close/Procedure End Time: 10:50 AM Surgeon(s)/Proceduralist(s) and Seasoning Mixer(s): Surgeon(s) and Role: * Heather Blanton - [...] in the canal and removed with the Cheney-Nephb3 bio morcellator. All instruments were removed from vagina [...] Cc: Dr. Lola Hernandez documented in this encounterRiverview Health Institute03-11-2024 Miscellaneous Notes* Telephone Encounter - Bekah Zaragoza MA - 07/18/2023 11:56 AM EDT Fax received and placed on Dr Shah's desk. * Telephone Encounter - Tricia Arrington RN - 07/14/2023 4:12 PM EST Pt calls Pts pcp had labs done and asking for fax # Caller was provided [phone] Please await fax with lab results documented in this encounterRiverview Health Institute02-12-2024 Evaluation note* Encounter Date Diagnosis Assessment Notes Treatment Notes Treatment Clinical Notes Jun, Heart palpitations (ICD-10 - R00 .2) Patient does have a history of palpitations but feels they are worsening in frequency. In house EKGtoday is essentially unchanged from previous. She reports getting a cough when her palpitations areacting up. I strongly recommend she get a visit set up with her locomotive boilermaker to discuss this further. Patient is in agreement. Jun,Hypertension (ICD-10 - I10) Blood pressure is stable upon check in. Refill e-scribed. Jun,History of thyroid nodule (ICD-10 - Z86.39) Thyroid US reviewed briefly with the patient noting four nodules with two that recommend getting a needle biopsy due to the size. I strongly recommended she follow through with ENT as scheduled. Patient voiced understanding and is in agreement. Blood work ordered to monitor. Jun,Weight gain (ICD-10 - R63.5) Weight gain noted today. Encouraged she increase diet and exercise. Jun,hest pain (ICD-10 - R07.9) Patient reports an ache in her left side chest lasting for only a few seconds that she is unable tofully describe but denies any pressure, tightness, or sharp/stabbing sensations. I advised again that she get a consult set up with her locomotive boilermaker. Jun,Hyperlipidemia (ICD-10 - E78.5) Blood work ordered to update. Jun,Hyperglycemia (ICD-10 - R73.9) Blood work ordered to update. Jun,Vitamin D deficiency (ICD-10 - E55.9) Blood work ordered to update. Jun,Microcytic anemia (ICD-10 - D50.9) Blood work ordered to update. Jun,utonomic dysfunction (ICD-10 - G90.9) Encouraged she get ahold of the locomotive boilermaker to get a consult set up. Blood work ordered to update. [employer] Other [id number] Instructions* Patient Instructions* Matthew Hall MD - 03/22/2023 8:49 AM EST Famotidine 20 mg daily before dinner Elevation of head of the bed by about 6 inches Get thyroid ultrasound documented in this encounterRiverview Health Institute11-14-2023 History of Present illness Narrative* Matthew Hall [...] thyroid tests were done at [facility] within the last year and were OK. Per Dr. Becerril note form 2016: She reports having h/o Grave's disease diagnosed. Treated with methimazole by [facility] in [place], [place] for sometime. Medication was stopped after [...] repeat thyroid US after that per Dr. Becerril was stable and Pt was asked to [...] OTC. Matthew Hall MD documented in this encounterRiverview Health Institute09-12-2023 Evaluation note* Encounter Date Diagnosis Assessment Notes Treatment Notes Treatment Clinical Notes Jan, Hypertension (ICD-10 - I10) [employer] Other [id number] Miscellaneous Notes* Telephone Encounter - Gwen Murrell LPN - 01/18/2023 7:08 AM EDT Patient has not been seen by endocrinology since 2015. iwi message sent informing patient she will need an appointment. * Telephone Encounter - aJymie Brown - 12/31/2022 1:45 PM EDT Iris Thomason is calling Lainey Becerril MD, PhD today to request a return call. She is wantingto know what the normal thyroid levels are for TSH and antibodies. She has a few questions. No chief complaint on file. Patient has been identified by name and birthdate. Duration of symptoms: Person calling: self Call patient at: on cell [phone] (home) [phone] (cell) Was an appointment scheduled: Closing statement: Jaymie Brown documented in this encounterRiverview Health Institute04-13-2023 Evaluation note* Encounter Date Diagnosis Assessment Notes Treatment Notes Treatment Clinical Notes Aug, Hypertension (ICD-10 - I10) [employer] Other 11-28-2022 Evaluation note* Encounter Date Diagnosis Assessment Notes Treatment Notes Treatment Clinical Notes Mar, Neutropenia, unspecified type (I CD-10 - D70.9) Neutrophils and Leukocytes have improved upon review of repeat blood work results The patient has had similar occasinal findings in 2014 and 2017. At this time I recommend we repeat blood work in two- three months and if neutrophils continue to be abnormal we will refer to hematology. Mar,2Dysuria (ICD-10 - R30.0) The patient complains of dysuria and urinary frequency as well as some sinus congestion and feels achy this morning. I did provide the above oral medication and instuctions that should help with both, advised to take for three days and if symptoms improve she may stop the medication and come in on for a T- dap as she will be leaving for [place] to visit her premature grandchild who is in ICU. Patient encouraged she increase her water intake. [employer] Other 10-24-2022 Evaluation note* Encounter Date Diagnosis Assessment Notes Treatment Notes Treatment Clinical Notes Feb, Hypertension (ICD-10 - I10) [employer] Other 10-11-2022 Evaluation note* Encounter Date Diagnosis Assessment Notes Treatment Notes Treatment Clinical Notes Feb, Microcytic anemia (ICD-10 - D50. 9) Feb,Hyperlipidemia (ICD-10 - E78.5) Feb,Vitamin D deficiency, unspecified (ICD-10 - E55.9) Feb,Fatigue (ICD-10 - R53.83) [employer] Other 07-08-2022 NotePROCEDURE: XR TIB_FIB LT 2V HISTORY: Pain ; acute left tobar pain and burning COMPARISON: None. FINDINGS: BONES:No fracture, acute abnormality, or significant arthropathy. SOFT TISSUES:No appreciable soft tissue swelling. EFFUSION:None visible. OTHER: Negative. IMPRESSION: 1. No acute bone abnormality. 2. No radiopaque foreign body or suspicious findings. Electronically authenticated by: FAROOQ VENCES Date: 2021-11-13 13:28[facility]03-30-2022 Evaluation note* Encounter Date Diagnosis Assessment Notes Treatment Notes Treatment Clinical Notes Jul, Hypertension (ICD-10 - I10) [employer] Other 12-15-2021 Evaluation note* Encounter Date Diagnosis Assessment Notes Treatment Notes Treatment Clinical Notes Apr, Otalgia of both ears (ICD-10 - H 92.03) The patient reports having pain in both ears but states the right is more painful than the left forthe last month. She denies any sore throat [...] voiced understanding. We will continue to monitor. Apr,alpitations (ICD-10 - R00.2) The patient notices a fluttering/skipping sensation on the left side of her chest lasting for 5-10 seconds at a time stating it is sometimes worse than others. She does have POTS (postural orthostatic tachycardia syndrome) and has previously seen Dr. Prashant Ramirez at [facility] last seeing him 09/2020. Sheadmits she was supposed to get a holter monitor but due to COVID she has been limiting going out inpublic. In house EKG performed and reviewed with the patient with essentially normal results. Encoruaged the patient to follow with Dr. Ramirez as scheduled. Apr,ecurrent UTI (ICD-10 - N39.0) The patient was [...] urology last seeing them yesterday and she wasencouraged the patient to follow with urology as scheduled. Apr,ain in right knee (ICD-10 - M25.561) The patient reports pain in her right knee and has trouble walking at times due to the pain. She states while walking, she feels her knee was shifting. She has gotten adjustments by Dr. Truong, achiropractor in [place]. Encouraged her to continue with the adjustments as needed. I advised her the oral steroids provided for her ears, should likely help with her knee pain. Apr,Vaccine counseling (ICD-10 - Z71.85) The patient does voice interest in getting the COVID vaccine but has not yet due to sporatic illnesses. I advised her that due to her immune system, she should get either the Moderna or Pfizer vaccine. She is in agreement and voiced understanding. [email or web address] Other 08-20-2015 History general Narrative - Reported* Type Description Date Medical History POTS Medical HistoryGERDMedical HistorySinusMedical History12/26/14 EKGMedical History Mammogram bilateral Mar 2014- negativeMedical Historycolposcopy @ [facility] 05/2018 Medical Historypolyp removal 04/2018Surgical HistorylaprascopySurgical History implant in chest removedSurgical HistoryappySurgical HistoryD&Surgical HistoryFibroid removal05/2018Hospitalization History[facility] [employer] Other Evaluation noteNort RepRegen Other Evaluation noteNo InformationNortPenn Highlands [facility] [place] [facility] Other Evaluation noteNo assessment information available [facility] Work Phone: Evaluation note* Diagnosis Multiple thyroid nodules- Primary Nontoxic multinodular goiter documented in this encounter [facility] note* Diagnosis Thickened endometrium- Primary Nonspecific (abnormal) findings on radiological and other examination of genitourinary organs documented in this encounter [facility] note* Author Pema Lo [facility] 2023 8:48amThe above note written by CHRISTIANO Ruiz acting as human recorder, note dictated by Dr. Gautam Dill. [facility] Work Phone: Evaluation note* Diagnosis Multiple thyroid nodules- Primary Nontoxic multinodular goiter documented in this encounter [facility] note* Diagnosis Multiple thyroid nodules- Primary Nontoxic multinodular goiter documented in this encounter [facility] note* Diagnosis Onset Date Resolution Status Difficulty swallowing acuteGERD (gastroesophageal reflux disease)acuteIrritable bowel syndrome with constipationacute [facility] Work Phone: Evaluation note* Diagnosis Breast pain in female Mastodynia Encounter for screening mammogram for malignant neoplasm of breast [facility] Diagnosis Encounter for gynecological examination without abnormal finding- Primary Screening for malignant neoplasm of cervix Screening for malignant neoplasm of the cervix Encounter for screening mammogram for breast cancer Thickened endometrium Nonspecific (abnormal) findings on radiological and other examination of genitourinary organs Vaginal dryness Postmenopausal atrophic vaginitis [facility] Diagnosis Pulmonary hypertension, unspecified (HCC)- Primary documented in this encounter [facility] note* Diagnosis Thickened endometrium Nonspecific (abnormal) findings on radiological and other examination of genitourinary organs [facility] Diagnosis Primary pulmonary hypertension (HCC)- Primary Primary pulmonary hypertension [facility] Diagnosis Palpitations Pulmonary hypertension (HCC) Other chronic pulmonary heart diseases [facility] Diagnosis Primary pulmonary hypertension (HCC) Primary pulmonary hypertension [facility] Diagnosis Palpitations- Primary Pulmonary hypertension (HCC) Other chronic pulmonary heart diseases SOB (shortness of breath) Shortness of breath Elevated blood pressure reading Elevated blood pressure reading without diagnosis of hypertension [facility]* Diagnosis Lung nodule seen on imaging study- Primary Solitary pulmonary nodule SOBOE (shortness of breath on exertion) Shortness of breath Lung nodules Other nonspecific abnormal finding of lung field [facility] Diagnosis Thickened endometrium Nonspecific (abnormal) findings on radiological and other examination of genitourinary organs Dysuria documented in this encounter [facility] note* Diagnosis Chest pain, unspecified type- Primary Palpitations Pulmonary hypertension (HCC) Other chronic pulmonary heart diseases SOB (shortness of breath) Shortness of breath Elevated blood pressure reading Elevated blood pressure reading without diagnosis of hypertension [facility] Diagnosis Lung nodules- Primary Other nonspecific abnormal finding of lung field [facility] Diagnosis Lung nodules Other nonspecific abnormal finding of lung field [facility]* Diagnosis Pulmonary hypertension (HCC)- Primary Other chronic pulmonary heart diseases [facility]* Diagnosis Palpitations Pulmonary hypertension (HCC) Other chronic pulmonary heart diseases Postural orthostatic tachycardia syndrome (POTS) Tremor Abnormal involuntary movements Essential (primary) hypertension Unspecified essential hypertension Thyroid nodule Nontoxic uninodular goiter [facility] Diagnosis Palpitations- Primary SOB (shortness of breath) Shortness of breath [facility]* Diagnosis Encounter for gynecological examination without abnormal finding Screening for malignant neoplasm of cervix Screening for malignant neoplasm of the cervix Encounter for screening mammogram for breast cancer Dysuria documented in this encounter [facility] general Narrative - ReportedSanta Cruz RepRegen Other Hospital Discharge instructionsAmbulatory Orders* Referral to Gastroenterology Time Frame: 10/19/23, Location: None [facility] Work Phone: Reason for referral (narrative)* Diagnostic Procedure Only (Routine) - AuthorizedSpecialtyDiagnoses / ProceduresReferred By Contact Referred To [facility] Diagnoses Multiple thyroid nodules Procedures US THYROID/PARATHYROID US SOFT TISSUE HEAD & NECK REAL TIME IMGE DOCM Matthew Hall MD [address] [id number] Referral IDStatusReasonStart DateExpiration DateVisits RequestedVisits [id number] Auto-Generated Referral / [facility] for referral (narrative)* Diagnostic Procedure Only (Routine) - New RequestSpecialtyDiagnoses / ProceduresReferred By Contact Referred To [facility] Diagnoses Multiple thyroid nodules Procedures US THYROID/PARATHYROID US SOFT TISSUE HEAD & NECK REAL TIME IMGE DOCM Matthew Hall MD [address] [address] [place] [address] Referral IDStatusReasonStart DateExpiration DateVisits RequestedVisits [id number] Request Auto-Generated Referral / [facility] for referral (narrative)* Outpatient Procedure (Routine) - AuthorizedSpecialtyDiagnoses / ProceduresReferred By ContactReferred To [facility] Diagnoses Pulmonary hypertension, unspecified (HCC) Procedures ECG COMPLETE ECG ROUTINE ECG W/LEAST 12 LDS W/I&R Lorenzo Lora MD [address] [place] [address] [facility] [address] [place] [address] Referral IDStatusReasonGarden City DateExpiration DateVisits RequestedVisits [id number] Auto-Generated Referral / [facility] for [facility] (narrative)No reason for referral information availableLancaster [facility] Work Phone: Reason for visit Narrative* MRI/CT (Routine) - Closed SpecialtyDiagnoses / ProceduresReferred By ContactReferred To ContactCT IMAGING Diagnoses Lung nodules Procedures CT CHEST WO IVCON DIAGNOSTIC COMPUTED TOMOGRAPHY THORAX W/O CNTRST Wing Farrell, SURFACE GRINDER TENDER.GAME SHOW HOST [address] [place] [id number] Phone: tel: fax: [facility] [place] [address] Referral IDStatusReasonStart DateExpiration DateVisits RequestedVisits [id number] Auto-Generated Referral / [facility] Summary Purpose Family History No Family History Records Found Relationship Condition Age at Onset Recorded Date/T annamarie father Malignant neoplasm Unknown HypertensionUnknownNot SpecifiedHeart diseaseUnknown Relationship Condition Age at Onset Recorded Date/T annamarie father Malignant neoplasm Unknown HypertensionUnknownmotherHeart diseaseUnknown Advance Directives No Advanced Directives Records Found Advance Directive Response Recorded Date/ Time Advance Directives No February 22, 2017 6:29pm Advance Directive Response Recorded Date/ Time Advance Directives No February 22, 2017 5:29pm TypeDate RecordedPatient RepresentativeExplanationAdvance Directive(s)04/17/2018 12:35 PMTypeDate RecordedPatient RepresentativeExplanationAdvance Directive(s) 04/17/2018 12:35 PM Advance Directive Response [...] message R19.7 G90.A E78.5 Z86.39 R10.9 R14.0 R10.11Reason for VisitDiarrhea GERD (gastroesophageal reflux disease) LLQ abdominal pain Pyogenic granuloma RUQ abdominal pain Chief Complaint R10.9 R14.0 R10.11 Refer Gautam Dill, LLQ pain, RUQ pain, diarrheaReason for VisitDifficulty swallowing GERD (gastroesophageal reflux disease) Irritable bowel syndrome with constipation Chief Complaint R10.9 R14.0 R10.11 Refer Gautam Dill, LLQ pain, RUQ pain, diarrhea R13.10 K21.9Reason for VisitDifficulty swallowing GERD (gastroesophageal reflux disease) Irritable bowel syndrome with constipation Chief Complaint Admit Date discuss labs from [facility] April 27 11:14am E87.5 July 16, 2024 [...] section and content) DATE CREATED AUTHOR 10/27/2017 [facility] DATE CREATED AUTHOR AUTHOR'S ORGANIZ ATION 10/27/2017 [facility] DATE CREATED AUTHOR AUTHOR'S ORGANIZ ATION 05/16/2021 [facility] DATE CREATED AUTHOR AUTHOR'S ORGANIZ ATION 07/31/2022 [facility] DATE CREATED AUTHOR AUTHOR'S ORGANIZ ATION 07/16/2024 [facility] DATE CREATED AUTHOR AUTHOR'S ORGANIZ ATION 01/23/2025 [facility] DATE CREATED AUTHOR AUTHOR'S ORGANIZ ATION 03/05/2025 [facility] DATE CREATED AUTHOR AUTHOR'S ORGANIZ ATION 03/07/2025 [facility] REASON FOR VISIT (unrecogniz ed section and content) ReasonCommentsPatient QuestionReasonCommentsConsultReasonCommentsfax #Reason CommentsMenstrual ProblemReasonCommentsQuestionReasonCommentsThyroid Problem ReasonCommentsBreast ProblemPt complains R breast pain for a few weeks no lump not hot to the touch.ReasonCommentsGynecologic ExamPt Seen Dr. Cantor 10/2023. Pt c/o pain with intercourse, vaginal dryness with intercourse. Denies bow el/bladder concerns. Denies any current breast pain. Had some a couple weeks ago and Seen Dr. Cantor. Denies vaginal bleeding/spotting.ReasonCommentsFollow-upPt presents for follow up for US results. Pt recently been diagnosed with Pulmonary hypertension.ReasonCommentsResultsReasonCommentsCounselingPatient went to yesterday to get holter monitor. They were not able to get insurance approval in time.ReasonCommentsAdvice OnlyReasonCommentsResultsPatient is calling regarding her abnormal lab results. Her potassium is 5.8. And some other labs were off and causing her concern.ReasonCommentsRadiology XRReasonCommentsHolter Monitor ApplicationSpecialtyDiagnoses / ProceduresReferred By ContactReferred To Contact Cardiology / CARD [facility] Diagnoses Palpitations Palpitations [R00.2] Pulmonary hypertension (HCC) [I27.20] Procedures XTRNL ECG & 48 HR RECORDING HOLTER MONITOR Lorenzo Lora MD [address] [place] [address] Phone: tel: fax: Tiffany, Nurse Card [facility] [address] [place] [address] Phone: tel: fax: Referral IDStatusReasonStart DateExpiration DateVisits RequestedVisits [id number]vvNljpaf CommentsNoduleReasonCommentsProcedurePt presents for EMB. Pt request Urine dip. Was not able to get enough urine for dip stick. Denies iodine allergy. Denies vaginal bleeding/spotting.ReasonCommentsFollow UpReasonCommentsRadiology CT ReasonCommentsEstablished PatientLung NodulesReasonCommentsSpirometrySpecialty Diagnoses / ProceduresReferred By ContactReferred To ContactRESPIRATORY INSTITUTE Diagnoses Primary pulmonary hypertension (HCC) Procedures SIX MINUTE WALK CARDIOPULMONARY EXERCISE STRESS Reyna Buck APRN.AUTOMATIC CAR WASH ATTENDANT [address] [place] [address] Phone: tel: fax: [facility] [address] [place] [address] Referral IDStatusReasonGarden City DateExpiration DateVisits RequestedVisits [id number] Auto-Generated Referral /[id number] / ProceduresReferred By ContactReferred To Contact Diagnoses Palpitations Pulmonary hypertension (HCC) Procedures CONSULT TO PULMONARY HYPERTENSION CLINIC OFFICE/OUTPATIENT [facility] 60 MINUTES Lorenzo Lora MD [address] [place] [address] Phone: tel: fax: Referral IDStatusReRand[facility] DateExpiration DateVisits RequestedVisits [id number] PCP Requested Referral /[id number] ATSpecialtyDiagnoses / Procedures Referred By ContactReferred To ContactCardiology / CARDI[facility]ASCULAR MEDICINE Diagnoses Palpitations Pulmonary hypertension, unspecified (HCC) Shortness of breath Elevated blood-pressure reading, without diagnosis of hypertension Chest pain, unspecified 14 day ZIO Patch Procedures XTRNL MOBILE CV TELEMETRY W/I&REPORT 30 DAYS HOLTER MONITOR Quincy Quan MD [address] [place] [address] Phone: tel: fax: Cardiology [address] [place] [address] Phone: tel: Referral IDStatusMaralasonGarden City DateExpiration DateVisits RequestedVisits [id number] ExamPt states occasionally will have dysuria, would like urine dip. Urine collected. Pt states she drank very little water today. 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 Denies any other concerns. Ptstates after EMB had pelvic pain for a week. Denies vaginal bleeding/spotting. Care Teams (unrecognized sec tion and content) Team Status: Active Member Role Status Dates Gautam Dill DO Primary Care Provider Active Team Status: Active Member Role Status Dates Gautam Dill DO Primary Care Provide r, Attending Provider Active Start: July 04, 2024 Team Status: Active Member Role Status Dates Gautam Dill DO Primary Care Provider Active Sta rt: July 06, 2024 Heri Toney DOAttending ProviderActiveStart: July 06, 2024 Team Status: Inactive Member Role Status Dates Gautam Dill DO Primary Care Provide r, Attending Provider Active Start: July 16, 2024 End: July 16, 2024 Team Status: Inactive Member Role Status Dates Gautam Dill DO Primary Care Provider Active Sta rt: July 26, 2024 End: July 26dulce Price RDActiveStart: July 26, 2024 End: July 26ndsedrick Sun RD LDAttending ProviderActiveStart: July 26, 2024 End: July 26, 2024 Team Status: Inactive Member Role Status Dates Gautam Dill DO Primary Care Provider, Attending Provi brad Active Team Status: Inactive Member Role Status Dates Gautam Dill DO Primary Care Provider Active Referral SelfAttending ProviderActiveTeam MemberRelationshipSpecialtyStart Date End Date Gautam Dill DO [address] [place] [phone] PCP - General07/22/03Team MemberRelationshipSpecialtyStart DateEnd Date Gautam Dill DO [address] [place] [address] PCP - General07/22/03 Team Status: Inactive Member Role Status Dates Gautam Dill DO Primary Care Provide r, Attending Provider Active Start: June 23, 2023 End: June 23, 2023Team MemberRelationshipSpecialtyStart DateEnd Date Gautam Dill DO [address] [place] [facility] [place] [address] PCP - General07/22/03Team MemberRelationshipSpecialtyStart DateEnd Date Gautam Dill DO [address] [place] [facility] [place] [place] [address] PCP - General07/22/03 Navneet Hernandez MD [address] [place] [address] Ob/Gyn08/05/23Team MemberRelationshipSpecialtyStart DateEnd Date Gautam Dill DO [address] [place] [facility] [place] [address] PCP - General07/22/03 Navneet Hernandez MD [address] [place] [address] Ob/Gyn08/05/23 Team Status: Inactive Member Role Status Dates Gautam Dill DO Primary Care Provide r, Attending Provider Active Start: October 19, 2023 End: October 19, 2023 Team Status: Active Member Role Status Dates Gautam Dill DO Primary Care Provide r, Attending Provider Active Start: October 19, 2023 Team MemberRelationshipSpecialtyStart DateEnd Date Gautam Dill DO [address] [place] [facility] [place] [place] [address] PCP - General07/22/03 Navneet Hernandez MD [address] [place] [address] Ob/Gyn08/05/23Team MemberRelationshipSpecialtyStart DateEnd Date Gautam Dill DO [address] [place] [facility] [place] [address] PCP - General07/22/03 Navneet Hernandez MD [address] [place] [address] Ob/Gyn08/05/23Team MemberRelationshipSpecialtyStart DateEnd Date Gautam Dill DO [address] [place] [facility] [place] [place] [address] PCP - General07/22/03 Navneet Hernandez MD [address] [place] [address] Ob/Gyn08/05/23 Team Status: Inactive Member Role Status Dates Gautam Dill DO Primary Care Provide r, Attending Provider, Referring Provider Active Start: November 24, 2023 End: November 24, 2023Team MemberRelationshipSpecialtyStart DateEnd Date Gautam Dill DO [address] [place] [facility] [place] [address] PCP - General07/22/03 Navneet Hernandez MD [address] [place] [address] Ob/Gyn08/05/23 Team Status: Inactive Member Role Status Dates Gautam Dill DO Primary Care Provider Active Sta rt: February 08, 2024 End: February 074Catherine L Ly , DOAttending ProviderActiveStart: February 08, 2024 End: February 08, 2024 Team Status: Inactive Member Role Status Dates Gautam Dill DO Primary Care Provider Active Sta rt: February 13, 2024 End: February 124Catherine L Ly , DOAttending ProviderActiveStart: February 13, 2024 End: February 13, 2024Team MemberRelationshipSpecialtyStart DateEnd Date Gautam Dill MD [address] [place] [address] PCP - General12/21/22Team MemberRelationshipSpecialtyStart DateEnd Date Gautam Dill MD [address] [place] [address] PCP - General12/21/22Team MemberRelationshipSpecialtyStart DateEnd Date Gautam Dill MD [address] [place] [address] PCP - General12/21/22Team MemberRelationshipSpecialtyStart DateEnd Date Gautam Dill MD [address] [place] [address] PCP - General12/21/22Team MemberRelationshipSpecialtyStart DateEnd Date Gautam Dill MD [address] [place] [address] PCP - General12/21/22Team MemberRelationshipSpecialtyStart DateEnd Date Gautam Dill DO [address] [place] [facility] [place] [address] PCP - General07/22/03 Navneet Hernandez MD [address] [place] [address] Ob/Gyn08/05/23Team MemberRelationshipSpecialtyStart DateEnd Date Gautam Dill MD [address] [place] [address] PCP - General12/21/22Team MemberRelationshipSpecialtyStart DateEnd Date Gautam Dill DO [address] [place] [facility] [place] [address] PCP - General07/22/03 Navneet Hernandez MD [address] [place] [address] Ob/Gyn08/05/23Team MemberRelationshipSpecialtyStart DateEnd Date Gautam Dill DO [address] [place] [facility] [place] [place] [address] PCP - General07/22/03 Navneet Hernandez MD [address] [place] [address] Ob/Gyn08/05/23 Lorenzo Lora MD [address] [place] [address] Primary Staff PhysicianCardiology07/04/24Team MemberRelationshipSpecialtyStart DateEnd Date Gautam Dill DO [address] [place] [facility] [place] [address] PCP - General07/22/03 Navneet Hernandez MD [address] [place] [address] Ob/Gyn08/05/23 Lorenzo Lora MD [address] [place] [address] Primary Staff PhysicianCardiology07/04/24Team MemberRelationshipSpecialtyStart DateEnd Date Gautam Dill DO [address] [place] [address] PCP - General07/22/03 Navneet Hernandez MD [address] [place] [address] Ob/Gyn08/05/23 Lorenzo Lora MD [address] [place] [address] Primary Staff PhysicianCardiology07/04/24Team MemberRelationshipSpecialtyStart DateEnd Date Gautam Dill DO [address] [place] [address] PCP - General07/22/03 Navneet Hernandez MD [address] [place] [address] Ob/Gyn08/05/23 Lorenzo Lora MD [address] [place] [address] Primary Staff PhysicianCardiology07/04/24 Team Status: Inactive Member Role Status Dates Gautam Dill DO Primary Care Provide r, Attending Provider Active Start: April 27, 2024 End: April 27, 2024Team MemberRelationshipSpecialtyStart DateEnd Date Gautam Dill DO [address] [place] [address] PCP - General07/22/03 Navneet Hernandez MD [address] [facility] [address] [place] [address] Ob/Gyn08/05/23 Lorenzo Lora MD [address] [place] [address] Primary Staff PhysicianCardiology07/04/24Team MemberRelationshipSpecialtyStart DateEnd Date Gautam Dill DO [address] [place] [address] PCP - General07/22/03 Navneet Hernandez MD [address] [facility] [address] [place] [address] Ob/Gyn08/05/23 Lorenzo Lora MD [address] [place] [address] Primary Staff PhysicianCardiology07/04/24Team MemberRelationshipSpecialtyStart DateEnd Date Gautam Dill DO [address] [place] [address] PCP - General07/22/03 Navneet Hernandez MD [address] [facility] [address] [place] [address] Ob/Gyn08/05/23 Lorenzo Lora MD [address] [place] [address] Primary Staff PhysicianCardiology2Team MemberRelationshipSpecialtyStart DateEnd Date Gautam Dill DO [address] [place] [address] PCP - General07/22/03 Navneet Hernandez MD [address] [place] [address] Ob/Gyn08/05/23 Lorenzo Lora MD [address] [place] [address] Primary Staff PhysicianCardiology07/04/24Team MemberRelationshipSpecialtyStart DateEnd Date Gautam Dill DO [address] [place] [address] PCP - General07/22/03 Navneet Hernandez MD [address] [facility] [address] [place] [address] Ob/Gyn08/05/23 Lorenzo Lora MD [address] [place] [address] Primary Staff PhysicianCardiology07/04/24Team MemberRelationshipSpecialtyStart DateEnd Date Gautam Dill DO PCP - General12/21/22Team MemberRelationshipSpecialtyStart DateEnd Date Gautam Dill DO PCP - General8/15/23 Team Status: Active Member Role Status Dates Gautam Dill DO Primary Care Provider Active Sta rt: July 08, 2024 Silviano King DOAttending ProviderActiveStart: July 08, 2024 Team Status: Inactive Member Role Status Dates Gautam Dill DO Primary Care Provider Active Sta rt: September 14, 2024 End: September 14, 2024Katyamini Cordova DOAttending ProviderActiveStart: September 14, 2024 End: September 14, 2024Team MemberRelationshipSpecialtyStart DateEnd Date Gautam Dill DO [address] [place] [address] PCP General07/22/03 Navneet Hernandez MD [address] [place] [address] Ob/Gyn08/05/23 Lorenzo Lora MD [address] [place] [address] Primary Staff PhysicianCardiology07/04/24Team MemberRelationshipSpecialtyStart DateEnd Date Gautam Dill [place] [facility] [place] [address] PCP - General07/22/03 Navneet Hernandez MD [address] [place] [address] Ob/Gyn08/05/23 Lorenzo Lora MD [address] [place] [address] Primary Staff PhysicianCardiology07/04/24Team MemberRelationshipSpecialtyStart DateEnd Date Gautam Dill DO [address] [place] [address] PCP - General07/22/03 Navneet Hernandez MD [address] [place] [address] Ob/Gyn08/05/23 Lorenzo Lora MD [address] [place] [address] Primary Staff PhysicianCardiology07/04/24Team MemberRelationshipSpecialtyStart DateEnd Date Gautam Dill [place] [facility] [place] [address] PCP - General07/22/03 Navneet Hernandez MD [address] [place] [address] Ob/Gyn08/05/23 Lorenzo Lora MD [address] [place] [address] Primary Staff PhysicianCardiology07/04/24Team MemberRelationshipSpecialtyStart DateEnd Date Gautam Dill [place] [facility] [place] [address] PCP - General07/22/03 Navneet Hernandez MD [address] [place] [address] Ob/Gyn08/05/23 Lorenzo Lora MD [address] [place] [address] Primary Staff PhysicianCardiology07/04/24Team MemberRelationshipSpecialtyStart DateEnd Date Gautam Dill DO [address] [place] [address] PCP - General07/22/03 Navneet Hernandez MD [address] [place] [address] Ob/Gyn08/05/23 Lorenzo Lora MD [address] [place] [address] Primary Staff PhysicianCardiology07/04/24Team MemberRelationshipSpecialtyStart DateEnd Date Gautam Dill DO PCP - General12/21/22Team MemberRelationshipSpecialtyStart DateEnd Date Gautam Dill DO PCP - General12/21/22 Team Status: Active Member Role/Relationship Status Dates Gautam Dill DO Primary Care Provider Active Team Status: Inactive Member Role/Relationship Status Dates Gautam Dill DO Primary Care Provider Active Sta rt: March 04, 2025 End: March 04ryeduarda Dill DOAttending ProviderActiveStart: March 04, 2025 End: March 04, 2025 Goals (unrecognized section and content) Goals may be documented in a n alternate section Source Comments (unrecognize d section and content) In the event this informatio n is protected by the Federal Confidentiality of Alcohol and Drug Abuse Patient Records regulations: The Federal rules restrict any use of the information to criminally investigate or prosecute any alcohol or drug abuse patient.[facility] InstituteIn the event this information is protected by the Federal Confidentiality of Alcohol and Drug Abuse Patient Records regulations: The Federal rules restrict any use of the information to criminally investigate or prosecute any alcohol or drug abuse patient.[facility] InstituteIn the event this information is protected by the Federal Confidentiality of Alcohol and Drug Abuse Patient Records regulations: The Federal rules restrict any use of the information to criminally investigate or prosecute any alcohol or drug abuse patient.[facility] InstituteIn the event this information is protected by the Federal Confidentiality of Alcohol and Drug Abuse Patient Records regulations: The Federal rules restrict any use of the information to criminally investigate or prosecute any alcohol or drug abuse patient.[facility] InstituteIn the event this information is protected by the Federal Confidentiality of Alcohol and Drug Abuse Patient Records regulations: The Federal rules restrict any use of the information to criminally investigate or prosecute any alcohol or drug abuse patient.[facility] InstituteIn the event this information is protected by the Federal Confidentiality of Alcohol and Drug Abuse Patient Records regulations: The Federal rules restrict any use of the information to criminally investigate or prosecute any alcohol or drug abuse patient.[facility] InstituteIn the event this information is protected by the Federal Confidentiality of Alcohol and Drug Abuse Patient Records regulations: The Federal rules restrict any use of the information to criminally investigate or prosecute any alcohol or drug abuse patient.[facility] InstituteIn the event this information is protected by the Federal Confidentiality of Alcohol and Drug Abuse Patient Records regulations: The Federal rules restrict any use of the information to criminally investigate or prosecute any alcohol or drug abuse patient.[facility] InstituteIn the event this information is protected by the Federal Confidentiality of Alcohol and Drug Abuse Patient Records regulations: The Federal rules restrict any use of the information to criminally investigate or prosecute any alcohol or drug abuse patient.[facility] InstituteIn the event this information is protected by the Federal Confidentiality of Alcohol and Drug Abuse Patient Records regulations: The Federal rules restrict any use of the information to criminally investigate or prosecute any alcohol or drug abuse patient.[facility] InstituteIn the event this information is protected by the Federal Confidentiality of Alcohol and Drug Abuse Patient Records regulations: The Federal rules restrict any use of the information to criminally investigate or prosecute any alcohol or drug abuse patient.[facility] InstituteIn the event this information is protected by [...] or prosecute any alcohol or drug abuse patient.[facility] InstituteIn the event this information is protected by the Federal Confidentiality of Alcohol and Drug Abuse Patient Records regulations: The Federal rules restrict any use of the information to criminally investigate or prosecute any alcohol or drug abuse patient.[facility] InstituteIn the event this information is protected by the Federal Confidentiality of Alcohol and Drug Abuse Patient Records regulations: The Federal rules restrict any use of the information to criminally investigate or prosecute any alcohol or drug abuse patient.[facility] InstituteIn the event this information is protected by the Federal Confidentiality of Alcohol and Drug Abuse Patient Records regulations: The Federal rules restrict any use of the information to criminally investigate or prosecute any alcohol or drug abuse patient.[facility] InstituteIn the event this information is protected by the Federal Confidentiality of Alcohol and Drug Abuse Patient Records regulations: The Federal rules restrict any use of the information to criminally investigate or prosecute any alcohol or drug abuse patient.[facility] InstituteIn the event this information is protected by the Federal Confidentiality of Alcohol and Drug Abuse Patient Records regulations: The Federal rules restrict any use of the information to criminally investigate or prosecute any alcohol or drug abuse patient.[facility] InstituteIn the event this information is protected by the Federal Confidentiality of Alcohol and Drug Abuse Patient Records regulations: The Federal rules restrict any use of the information to criminally investigate or prosecute any alcohol or drug abuse patient.[facility] InstituteIn the event this information is protected by the Federal Confidentiality of Alcohol and Drug Abuse Patient Records regulations: The Federal rules restrict any use of the information to criminally investigate or prosecute any alcohol or drug abuse patient.[facility] InstituteIn the event this information is protected by the Federal Confidentiality of Alcohol and Drug Abuse Patient Records regulations: The Federal rules restrict any use of the information to criminally investigate or prosecute any alcohol or drug abuse patient.[facility] InstituteIn the event this information is protected by the Federal Confidentiality of Alcohol and Drug Abuse Patient Records regulations: The Federal rules restrict any use of the information to criminally investigate or prosecute any alcohol or drug abuse patient.[facility] InstituteIn the event this information is protected by the Federal Confidentiality of Alcohol and Drug Abuse Patient Records regulations: The Federal rules restrict any use of the information to criminally investigate or prosecute any alcohol or drug abuse patient.[facility] InstituteIn the event this information is protected by the Federal Confidentiality of Alcohol and Drug Abuse Patient Records regulations: The Federal rules restrict any use of the information to criminally investigate or prosecute any alcohol or drug abuse patient.[facility] InstituteIn the event this information is protected by the Federal Confidentiality of Alcohol and Drug Abuse Patient Records regulations: The Federal rules restrict any use of the information to criminally investigate or prosecute any alcohol or drug abuse patient.[facility] InstituteIn the event this information is protected by the Federal Confidentiality of Alcohol and Drug Abuse Patient Records regulations: The Federal rules restrict any use of the information to criminally investigate or prosecute any alcohol or drug abuse patient.[facility] InstituteIn the event this information is protected by the Federal Confidentiality of Alcohol and Drug Abuse Patient Records regulations: The Federal rules restrict any use of the information to criminally investigate or prosecute any alcohol or drug abuse patient.[facility] InstituteIn the event this information is protected by the Federal Confidentiality of Alcohol and Drug Abuse Patient Records regulations: The Federal rules restrict any use of the information to criminally investigate or prosecute any alcohol or drug abuse patient.[facility] InstituteIn the event this information is protected by the Federal Confidentiality of Alcohol and Drug Abuse Patient Records regulations: The Federal rules restrict any use of the information to criminally investigate or prosecute any alcohol or drug abuse patient.[facility] InstituteIn the event this information is protected by the Federal Confidentiality of Alcohol and Drug Abuse Patient Records regulations: The Federal rules restrict any use of the information to criminally investigate or prosecute any alcohol or drug abuse patient.[facility] InstituteIn the event this information is protected by the Federal Confidentiality of Alcohol and Drug Abuse Patient Records regulations: The Federal rules restrict any use of the information to criminally investigate or prosecute any alcohol or drug abuse patient.[facility] InstituteIn the event this information is protected by the Federal Confidentiality of Alcohol and Drug Abuse Patient Records regulations: The Federal rules restrict any use of the information to criminally investigate or prosecute any alcohol or drug abuse patient.[facility] InstituteIn the event this information is protected by the Federal Confidentiality of Alcohol and Drug Abuse Patient Records regulations: The Federal rules restrict any use of the information to criminally investigate or prosecute any alcohol or drug abuse patient.[facility] InstituteIn the event this information is protected by the Federal Confidentiality of Alcohol and Drug Abuse Patient Records regulations: The Federal rules restrict any use of the information to criminally investigate or prosecute any alcohol or drug abuse patient.[facility] InstituteIn the event this information is protected by the Federal Confidentiality of Alcohol and Drug Abuse Patient Records regulations: The Federal rules restrict any use of the information to criminally investigate or prosecute any alcohol or drug abuse patient.[facility] FOR RECORDS PERTAINING TO PATIENTS WHO ARE [...] BE BASED ON THE PRIMARY CLINICAL RECORDS. [facility] [employer] [facility]. provides no warranty or guarantee of the accuracy or completeness of information in this document.
--- NOTE | 2025-03-08 17:00 | ECG_ITS ---
The [facility] Test Date: 2025-03-08 Pat Name: IRIS THOMASON Department: Room: - Gender: Female Audit Director: : 1965 Requested By: [id number] Order Number: [id number] Reading MD: TAYLOR ANDERSON M.D. Measurements Intervals [place] Rate: 72 P: 24 NM: 144 QRS: 68 QRSD: 84 T: 41 QT: 384 QTc: 408 Interpretive Statements 1100 Sinus rhythm 1470 with occasional supraventricular premature complexes 9140 abnormal rhythm ECG Compared to ECG 10/13/2024 01:02:09 No significant changes Electronically Signed On 03-08-2025 18:09:25 EDT by TAYLOR ANDERSON M.D.
[2025-03-08 17:04] LABS: Hematocrit 44.2 % (36.0-48.0); Hemoglobin 15.0 g/dL (12.0-16.0); Immature Granulocytes Abs Auto 0.01 10^3/uL (0.00-0.03); Immature Granulocytes Pct Auto 0.2 % (0.0-0.5); Lymphocytes Absolute Auto 1.6 10^3/uL (1.2-3.8); Mean Corpuscular HGB Conc 33.9 g/dL (29.9-35.2); Mean Corpuscular Hemoglobin 30.7 pg (26.7-34.0); Mean Corpuscular Volume 90.4 fL (81.0-99.0); Platelet Count 189 10^3/uL (150-450); Red Blood Count 4.89 10^6/uL (4.20-5.40); White Blood Count 5.7 10^3/uL (4.0-11.0)
--- NOTE | 2025-03-08 17:07 | XR_ITS ---
The [address] [address] Patient Name: IRIS THOMASON MRN: [id number] date: 1965 Sex: F Assigned Patient Location: ER Current Patient Location: ER Accession/Order Number: [id number] Exam Date: 03/08/2025 17:32 Report Date: 03/08/2025 18:13 At the request of: RICO BENNETT MD Procedure: XR chest 1V PA CHEST: CLINICAL HISTORY: chest discomfort COMPARISON: 10/13/2024 Unremarkable cardiomediastinal silhouette. Lungs clear. No effusion or pneumothorax. XR/XR chest 1V IMPRESSION: Negative acute pleural-parenchymal disease. Impression dictated by: Sonny Baldwin M.D. 03/08/2025 6:13 PM Dictation Location: [place] [address] Electronically authenticated by: [id number] Y Date: 03/08/2025 18:13
[2025-03-08 17:18] LABS: Anion Gap 15.4
[2025-03-08 17:20] LABS: Alanine Aminotransferase 36 U/L (14-59); Albumin Globulin Ratio 1.1; Albumin Level 3.7 g/dL (3.4-5.0); Alkaline Phosphatase 104 U/L (46-116); Aspartate Amino Transferase 36 U/L (15-37); Blood Urea Nitrogen 13.0 mg/dL (7.0-18.0); Calcium 9.0 mg/dL (8.5-10.1); Carbon Dioxide 25.5 mmol/L (21.0-32.0); Chloride 103 mmol/L (98-107); Estimated GFR (African America >60 (>=60 mL/min/1.73m^2); Estimated GFR (Non-African Ame >60 (>=60 mL/min/1.73m^2); Globulin 3.4 g/dL; Glucose 110 mg/dL (74-106); Potassium 4.9 mmol/L (3.5-5.1); Sodium 139 mmol/L (136-145); Total Protein 7.1 g/dL (6.4-8.2)
[2025-03-08] MEDS: NITROGLYCERIN 0.4 MG BOTTLE SL (17:25)
--- NOTE | 2025-03-08 18:09 | ED.GENADUL1 ---
HPI HPI - General Adult General Chief complaint: Neuro Symptoms/Deficit Stated complaint: Hypertension Time Seen by Provider: 03/08/25 16:59 Source: patient and family Mode of arrival: Wheelchair History of Present Illness HPI narrative: The patient is a 60 years old female who have history of hypertension presenting to the ER with a tremor to her right arm in addition to discomfort in her chest that she felt after she was standing in her kitchen The patient did not pass out did not have a specific pain she said that is mostly discomfort with numbness and tingling her left arm She also felt numbness and tingling all over the face and both sides there was no weakness in the lower extremity there was no headache Related Data Home Medications ?Medication ?Instructions ?Recorded ?Confirmed gabapentin 100 mg capsule 100 mg PO QDAY 07/06/24 10/13/24 nebivolol 5 mg tablet 2.5 mg PO QDAY 07/06/24 10/13/24 Previous Rx's ?Medication ?Instructions ?Recorded meclizine 25 mg tablet 25 mg PO TID PRN dizziness #20 tabs 10/13/24 Allergies Allergy/AdvReac Type Severity Reaction Status Date / Time Iodinated Contrast Media Allergy Hypertensio Verified 03/08/25 16:39 n latex Allergy Rash Verified 03/08/25 16:39 morphine AdvReac Hypertensio Verified 03/08/25 16:41 n Review of Systems ROS Status of ROS 10 or more systems reviewed and unremarkable except as noted in history and below [facility] Social History Little interest or pleasure in doing things: not at all Feeling down, depressed, or hopeless: not at all Exam Narrative Exam Narrative: Nurses notes and vital signs reviewed and patient is not hypoxic. General: Well-appearing and in no apparent distress. Skin: Warm, dry, no pallor noted. No rash. Head: Normocephalic, atraumatic. Neck: Supple, non-tender. Eye: Pupils are equal, round and EOMI. No scleral icterus. Cardiovascular: Regular Rate and Rhythm without murmur, gallop or rub. Respiratory: No accessory muscle use or respiratory distress. Lungs are clear to auscultation, no wheezing, rales or rhonchi Back: No midline thoracic or lumbar vertebral tenderness. No CVA tenderness Musculoskeletal: normal ROM, no calf or popliteal tenderness, no lower extremity edema/swelling GI: Abdomen is soft, non-distended. Normal bowel sounds. No masses appreciated. No tenderness to palpation. No rebound, guarding, or rigidity noted. Neurological: A&O x4. No cranial nerve dysfunction observed. No truncal ataxia. Moves all extremities. Sensation intact. Psychiatric: Cooperative and interactive. Normal mood and affect. Constitutional Vital Signs, click to edit/add: Last Vital Signs Temp 98.6 F 03/08/25 16:41 Pulse 68 03/08/25 18:10 Resp 18 03/08/25 18:10 BP 151/82 H 03/08/25 18:00 Pulse Ox 97 03/08/25 18:10 O2 Del Method Room Air 03/08/25 17:03 Course Vital Signs Vital signs: Vital Signs Temperature 98.6 F 03/08/25 16:41 Pulse Rate 78 03/08/25 16:41 Respiratory Rate 12 03/08/25 16:41 Blood Pressure 188/82 H 03/08/25 16:41 Pulse Oximetry 98 03/08/25 16:41 Oxygen Delivery Method Room Air 03/08/25 16:41 Temperature 98.6 F 03/08/25 16:41 Pulse Rate 68 03/08/25 18:10 Respiratory Rate 18 03/08/25 18:10 Blood Pressure 151/82 H 03/08/25 18:00 Pulse Oximetry 97 03/08/25 18:10 Oxygen Delivery Method Room Air 03/08/25 17:03 Medical Decision Making MDM Narrative Medical decision making narrative: She did had some tremors in the right hand only when she is paying attention but when she is not paying attention or she is doing something else she does not have the tremor The patient examination otherwise was benign except for the blood pressure being elevated above 200s on arrival The patient EKG shows sinus rhythm with a heart rate of [address] elevation or depression compared to old EKGs The patient provided with nitroglycerin initially after which the patient was feeling much better Mentioned that this happened to her before and she usually had her blood pressure low as she had orthostatic hypotension usually The patient measure her blood pressure daily according to her records and she usually does not get high readings although she did not specify the numbers for me The patient mentioned that she is taking bisoprolol 2.5 mg daily which is not enough to control blood pressure And I did explain to her that she would need another medication but the patient was reluctant saying that her blood pressure is not always high Right now the plan is to repeat the troponin in case the second troponin is negative after the first 1 was not show any acute pathology with a normal CBC and chemistry as well then the patient can be discharged to follow-up with her primary care with a regular daily recheck of her blood pressure It was noted that the patient have this tremors in the right side of the body which could be secondary to anxiety as well at the patient was stopping them when she is distracted Patient was feeling much better while she was in the ER and she had no more symptoms she was eager to go home Lab Data Labs: Lab Results 03/08/25 Range/Units 16:55 WBC 5.7 (4.0-11.0) 10^3/uL RBC 4.89 (4.20-5.40) 10^6/uL Hgb 15.0 (12.0-16.0) g/dL Hct 44.2 (36.0-48.0) % MCV 90.4 (81.0-99.0) fL MCH 30.7 (26.7-34.0) pg MCHC 33.9 (29.9-35.2) g/dL RDW 13.3 (11.0-15.0) % Plt Count 189 (150-450) 10^3/uL MPV 11.1 (9.5-13.5) fL Neut % (Auto) 56.1 (43.0-75.0) % Lymph % (Auto) 28.7 (20.5-60.0) % [place] % (Auto) 6.5 (1.7-12.0) % Eos % (Auto) 7.4 H (0.9-7.0) % Baso % (Auto) 1.1 (0.2-2.0) % Neut # (Auto) 3.2 (1.4-6.5) 10^3/uL Lymph # (Auto) 1.6 (1.2-3.8) 10^3/uL [place] # (Auto) 0.4 (0.3-0.8) 10^3/uL Eos # (Auto) 0.4 (0.0-0.7) 10^3/uL Baso # (Auto) 0.1 (0.0-0.1) 10^3/uL Abs Immat Gran (auto) 0.01 (0.00-0.03) 10^3/uL Imm/Tot Granulo (auto) 0.2 (0.0-0.5) % Sodium 139 (136-145) mmol/L Potassium 4.9 (3.5-5.1) mmol/L Chloride 103 (98-107) mmol/L Carbon Dioxide 25.5 (21.0-32.0) mmol/L Anion Gap 15.4 BUN 13.0 (7.0-18.0) mg/dL Creatinine 0.71 (0.55-1.02) mg/dL Est GFR ( Amer) >60 (>=60 mL/min/1.73m^2) Est GFR (Non-Af Amer) >60 (>=60 mL/min/1.73m^2) BUN/Creatinine Ratio 18.3 Glucose 110 H (74-106) mg/dL Calcium 9.0 (8.5-10.1) mg/dL Total Bilirubin 0.5 (0.2-1.0) mg/dL AST 36 (15-37) U/L ALT 36 (14-59) U/L Alkaline Phosphatase 104 (46-116) U/L Troponin I High Sens 16.1 (4.0-51.3) pg/mL Total Protein 7.1 (6.4-8.2) g/dL Albumin 3.7 (3.4-5.0) g/dL Globulin 3.4 g/dL Albumin/Globulin Ratio 1.1 Discharge Plan Discharge Patient Disposition: Still a Patient
--- NOTE | 2025-03-08 19:29 | ED.GENADUL1 ---
HPI HPI - General Adult General Chief complaint: Neuro Symptoms/Deficit Stated complaint: Hypertension Time Seen by Provider: 03/08/25 16:59 Source: patient and family Mode of arrival: Wheelchair History of Present Illness HPI narrative: 60-year-old female presented to the emergency department and was initially seen by Dr. Damon and signed out to me after discussing the case with her thoroughly. Please see her full history and physical exam. Related Data Home Medications ?Medication ?Instructions ?Recorded ?Confirmed gabapentin 100 mg capsule 100 mg PO QDAY 07/06/24 10/13/24 nebivolol 5 mg tablet 2.5 mg PO QDAY 07/06/24 10/13/24 Previous Rx's ?Medication ?Instructions ?Recorded meclizine 25 mg tablet 25 mg PO TID PRN dizziness #20 tabs 10/13/24 Allergies Allergy/AdvReac Type Severity Reaction Status Date / Time Iodinated Contrast Media Allergy Hypertensio Verified 03/08/25 16:39 n latex Allergy Rash Verified 03/08/25 16:39 morphine AdvReac Hypertensio Verified 03/08/25 16:41 n PFSH PFSH Social History Little interest or pleasure in doing things: not at all Feeling down, depressed, or hopeless: not at all Exam Constitutional Vital Signs, click to edit/add: Last Vital Signs Temp 98.6 F 03/08/25 16:41 Pulse 64 03/08/25 19:00 Resp 16 03/08/25 19:00 BP 137/78 03/08/25 19:00 Pulse Ox 96 03/08/25 19:00 O2 Del Method Room Air 03/08/25 17:03 Course Vital Signs Vital signs: Vital Signs Temperature 98.6 F 03/08/25 16:41 Pulse Rate 78 03/08/25 16:41 Respiratory Rate 12 03/08/25 16:41 Blood Pressure 188/82 H 03/08/25 16:41 Pulse Oximetry 98 03/08/25 16:41 Oxygen Delivery Method Room Air 03/08/25 16:41 Temperature 98.6 F 03/08/25 16:41 Pulse Rate 64 03/08/25 19:00 Respiratory Rate 16 03/08/25 19:00 Blood Pressure 137/78 03/08/25 19:00 Pulse Oximetry 96 10/31/25 19:00 Oxygen Delivery Method Room Air 03/08/25 17:03 Medical Decision Making MDM Narrative Medical decision making narrative: Repeat troponin is essentially unchanged and her blood pressure is normalized. She will be discharged home and will follow-up with her doctor. She happens to already have an appointment with her physician in 3 days and she will keep that appointment. Treatment diagnosis and follow-up were discussed with the patient. Lab Data Lab results reviewed: Yes I reviewed the patient's lab results Labs: Lab Results 03/08/25 03/08/25 Range/Units 16:55 18:53 WBC 5.7 (4.0-11.0) 10^3/uL RBC 4.89 (4.20-5.40) 10^6/uL Hgb 15.0 (12.0-16.0) g/dL Hct 44.2 (36.0-48.0) % MCV 90.4 (81.0-99.0) fL MCH 30.7 (26.7-34.0) pg MCHC 33.9 (29.9-35.2) g/dL RDW 13.3 (11.0-15.0) % Plt Count 189 (150-450) 10^3/uL MPV 11.1 (9.5-13.5) fL Neut % (Auto) 56.1 (43.0-75.0) % Lymph % (Auto) 28.7 (20.5-60.0) % [place] % (Auto) 6.5 (1.7-12.0) % Eos % (Auto) 7.4 H (0.9-7.0) % Baso % (Auto) 1.1 (0.2-2.0) % Neut # (Auto) 3.2 (1.4-6.5) 10^3/uL Lymph # (Auto) 1.6 (1.2-3.8) 10^3/uL [place] # (Auto) 0.4 (0.3-0.8) 10^3/uL Eos # (Auto) 0.4 (0.0-0.7) 10^3/uL Baso # (Auto) 0.1 (0.0-0.1) 10^3/uL Abs Immat Gran (auto) 0.01 (0.00-0.03) 10^3/uL Imm/Tot Granulo (auto) 0.2 (0.0-0.5) % Sodium 139 (136-145) mmol/L Potassium 4.9 (3.5-5.1) mmol/L Chloride 103 (98-107) mmol/L Carbon Dioxide 25.5 (21.0-32.0) mmol/L Anion Gap 15.4 BUN 13.0 (7.0-18.0) mg/dL Creatinine 0.71 (0.55-1.02) mg/dL Est GFR ( Amer) >60 (>=60 mL/min/1.73m^2) Est GFR (Non-Af Amer) >60 (>=60 mL/min/1.73m^2) BUN/Creatinine Ratio 18.3 Glucose 110 H (74-106) mg/dL Calcium 9.0 (8.5-10.1) mg/dL Total Bilirubin 0.5 (0.2-1.0) mg/dL AST 36 (15-37) U/L ALT 36 (14-59) U/L Alkaline Phosphatase 104 (46-116) U/L Troponin I High Sens 16.1 15.2 (4.0-51.3) pg/mL Total Protein 7.1 (6.4-8.2) g/dL Albumin 3.7 (3.4-5.0) g/dL Globulin 3.4 g/dL Albumin/Globulin Ratio 1.1 Imaging Data Chest x-ray: Radiologist's impression: ITS Impressions Chest X-Ray 03/08/25 17:07 IMPRESSION: Negative acute pleural-parenchymal disease. Impression dictated by: Sonny Baldwin M.D. 03/08/2025 6:13 PM Dictation Location: [place] [id number] Electronically authenticated by: [id number] Y Date: 03/08/2025 18:13 Discharge Plan Discharge Chief Complaint: Neuro Symptoms/Deficit Clinical Impression: Chest discomfort Patient Disposition: Home, Self-Care Time of Disposition Decision: 19:29 Mode of Transportation: Private Vehicle Prescriptions / Home Meds: No Action meclizine 25 mg tablet 25 mg PO TID PRN (Reason: dizziness) Qty: 20 0RF gabapentin 100 mg capsule 100 mg PO QDAY nebivolol 5 mg tablet 2.5 mg PO QDAY Print Language: British Instructions: Chest Pain (ED) Referrals: Gautam Wren DO [Primary Care Provider] - 1 week
== END 2025-03-08 19:35 | disposition home or self-care (01) ==
PROVIDERS: Emergency Medicine; Emergency Provider Emergency Medicine; PCP Family Medicine
DX: R07.89 Other chest pain (principal); I10 Essential (primary) hypertension; R20.0 Anesthesia of skin
CPT/HCPCS: 36415; 71045; 80053; 84484; 85025; 93005; 99285